=== PATIENT | female | born 1945 | race Caucasian/White ===

== ENCOUNTER 2017-11-07 13:43 | Emergency (ER) | payer MEDICARE, OTHER, SELFPAY ==
[2017-11-07 13:44] VITALS: BP 115/71; PULSE 60; RESP 18; TEMP 36.2; O2SAT 92; BMI 32.3
[2017-11-07 14:02] VITALS: O2SAT 98
--- NOTE | 2017-11-07 14:04 | ED.VISSUMM ---
- ER Visit Summary Date of Service: 11/07/17 Chief Complaint: Fever to 100.2, myalgias, headache, nasal congestion, sore throat and nonproductive cough initially History of Present Illness: The patient is a 72 F aunts with flulike symptoms that started last , November 04. She complains of documented fever to 102.2?. She states her cough initially was nonproductive now productive of colored sputum. She is a non-smoker. She does complain of headache without photophobia or neck stiffness. She does complain of nasal congestion, postnasal drainage and earache. She does complain of myalgias and arthralgias. She denies vomiting or diarrhea. She denies dysuria, frequency, urgency hematuria. She did not receive influenza vaccine this year. Physical Examination: Vital signs are normal. She is afebrile. HEENT exam is marked for boggy nasal mucosa and mild postnasal drainage. There is slight erythema at best. Trach is midline. There is no stridor. Lungs are without wheezes rales rhonchi with good mirror bilateral. Heart is regular without murmur, gallop or rub. Abdomen soft nontender. There is no asymmetry, swelling, discoloration, leg vein distention, palpable cords or tenderness along the distribution of the deep venous system. Neuro exam is nonfocal. Test Results: None were obtained Emergency Department Course and Treatment: Patient was informed she has influenza. She was told since this started there is no treatment other symptomatic. Since her vital signs are normal diagnostic testing is not indicated. Treatment Plan: Appropriate home-going instructions Disposition: Discharge to home Impression: Influenza This note was generated with [employer] dictation software. It may contain incorrect words, spelling, and punctuation that were not noted in review of the chart prior to signing ED Disposition - Plan for ED Patient: Disposition: Home or Assisted Living Chief Complaint: Cold Sx Instructions: ED Flu Referrals: Herminio Garcia [Primary Care Provider] - 1 Week if not improving
--- NOTE | 2017-11-07 14:08 | ED.DCSUM_ITS ---
- ER Visit Summary Date of Service: 11/07/17 Chief Complaint: Fever to 100.2, myalgias, headache, nasal congestion, sore throat and nonproductive cough initially History of Present Illness: The patient is a 72 F aunts with flulike symptoms that started last , November 04. She complains of documented fever to 102.2?. She states her cough initially was nonproductive now productive of colored sputum. She is a non-smoker. She does complain of headache without photophobia or neck stiffness. She does complain of nasal congestion, postnasal drainage and earache. She does complain of myalgias and arthralgias. She denies vomiting or diarrhea. She denies dysuria, frequency, urgency hematuria. She did not receive influenza vaccine this year. Physical Examination: Vital signs are normal. She is afebrile. HEENT exam is marked for boggy nasal mucosa and mild postnasal drainage. There is slight erythema at best. Trach is midline. There is no stridor. Lungs are without wheezes rales rhonchi with good mirror bilateral. Heart is regular without murmur, gallop or rub. Abdomen soft nontender. There is no asymmetry, swelling , discoloration, leg vein distention, palpable cords or tenderness along the distribution of the deep venous system. Neuro exam is nonfocal. Test Results: None were obtained Emergency Department Course and Treatment: Patient was informed she has influenza. She was told since this started there is no treatment other symptomatic. Since her vital signs are normal diagnostic testing is not indicated. Treatment Plan: Appropriate home-going instructions Disposition: Discharge to home Impression: Influenza This note was generated with [employer] dictation software. It may contain incorrect words, spelling, and punctuation that were not noted in review of the chart prior to signing ED Disposition - Plan for ED Patient: Disposition: Home or Assisted Living Chief Complaint: Cold Sx Instructions: ED Flu Referrals: Herminio Garcia [Primary Care Provider] - 1 Week if not improving
--- NOTE | 2017-11-07 14:40 | ED.RN ---
Verbal and written d/c instructions given to patient. All questions answered. Skin w/d. ABCs intact. Gait steady out of department.
== END 2017-11-07 14:40 | disposition home or self-care (01) ==
LOC: ED 14:16
PROVIDERS: Emergency Provider Emergency Medicine; Family Provider Physician Assistant; PCP Physician Assistant
DX: J11.1 Influenza due to unidentified influenza virus with other respiratory manifestations (principal); E66.9 Obesity, unspecified; Z79.899 Other long term (current) drug therapy
CPT/HCPCS: 99282

== ENCOUNTER 2017-12-12 18:37 | Emergency (ER) | payer MEDICARE, OTHER, SELFPAY ==
[2017-12-12 18:37] VITALS: BP 133/56; PULSE 60; RESP 16; TEMP 36.1; O2SAT 92; BMI 33.9
--- NOTE | 2017-12-12 18:41 | EKG12_ITS ---
Test Reason : Blood Pressure : / mmHG Vent. Rate : 062 BPM Atrial Rate : 062 BPM P-R Int : 148 ms QRS Dur : 092 ms QT Int : 448 ms P-R-T Axes : 070 006 114 degrees QTc Int : 454 ms Normal sinus rhythm ST & T wave abnormality, consider lateral ischemia Abnormal ECG Confirmed by MECHELLE FINCH, SOCORRO ([id number]), graphics editor ROBERT GIL ([id number] on 12/13/2017 2:26:37 PM Referred By: Confirmed By:SOCORRO MIN MD
--- NOTE | 2017-12-12 18:41 | RAD_ITS ---
STUDY: X-RAY CHEST REASON FOR EXAM: Female, 72 years old. Chest pain TECHNIQUE: AP COMPARISON: December 02, 2016 FINDINGS: Tiny calcified granulomata are noted in the right lung. There is bilateral perihilar interstitial thickening with groundglass opacity in the right lung. There is no demonstrated pleural abnormality. Normal size heart. Normal mediastinum and rach. Normal visualized pulmonary arteries. Mildly calcified aortic arch and descending thoracic aorta. Normal visualized thoracic spine. Normal visualized ribs, clavicles, and shoulders. There is no demonstrated abnormality of the visualized soft tissue structures of the upper abdomen. The interstitial thickening has increased and the groundglass opacity in the right lung is new possibly representing development of unilateral pulmonary interstitial edema or inflammatory change however this also could conceivably be artifactual. Clinical correlation recommended RAD/Chest 1 View (Portable) IMPRESSION: Increasing interstitial thickening and groundglass opacity in the right lung Electronically Signed: Dae Coleman MD at 20:05 EST , Service support ,
[2017-12-12 19:21] LABS: Absolute Neutrophil Count 4.3 X10^3/uL (2.0-7.7); Basophil# 0.04 X10^3/uL; Basophil% 0.5 % (0-1); Eosinophil# 0.28 X10^3/uL; Eosinophils% 3.6 % (0-5); Hematocrit 41.8 % (37-47); Hemoglobin 13.5 g/dl (12.0-15.0); Lymphocyte % 30.8 % (19-41); Mean Corp Hgb Conc 32.3 g/gl (32-36); Mean Corpuscular Hgb 29.3 pg (27.0-32.0); Mean Corpuscular Volume 90.7 fL (81-99); Mean Platelet Vol. 10.4 fl (6.2-12.0); Monocyte# 0.76 X10^3/uL; Monocyte% 9.8 % (0-10); Neutrophil # 4.29 X10^3/uL (2.7-7.7); POSITIVE COUNT NO; POSITIVE DIFFERENTIAL NO; POSITIVE MORPHOLOGY NO; Platelet Count 210 K/mm3 (150-450); RBC Distribution Width CV 14.7 % (11.6-14.6); RBC Distribution Width SD 48.4 fl (35.1-43.9); Red Blood Count 4.61 M/mm3 (4.2-5.4); White Blood Count 7.8 K/mm3 (4.4-11.0)
[2017-12-12 19:34] LABS: Anion Gap 5 (5-15); BUN 29 mg/dL (7-18); BUN/Creat Ratio 28.7 RATIO (10-20); Calcium,Total 9.1 mg/dL (8.5-10.1); Chloride 104 mmol/L (98-107); Creatinine, Serum 1.01 mg/dL (0.55-1.02); EST Glomerular Filtration Rate 57 mL/min (>60); Est Glom Filt Rate - Afr Amer 70 mL/min (>60); Estimated Creatinine Clearance 46.64 ml/min; Glucose 130 mg/dL (74-106); Potassium 3.9 mmol/L (3.5-5.1); Sodium Level 139 mmol/L (136-145)
[2017-12-12 19:46] VITALS: BP 131/68; PULSE 56; RESP 18; O2SAT 93
--- NOTE | 2017-12-12 20:23 | ED.DCSUM_ITS ---
- ER Visit Summary Date of Service: 12/12/17 Chief Complaint: Chest pain History of Present Illness: The patient is a [address] west and had seen Dr. Malik in the past. She reports that today while she was walking through the grocery store she had the onset of a substernal crushing pain that lasted 15-20 minutes. It resolved with rest. It was 10 out of 10 in severity. It made her nauseated and short of breath. She reports she has never had anything like this before. Physical Examination: Vitals: Stable. Afebrile. General: Well-nourished and well-developed. Head: Normocephalic atraumatic. Neck: Supple, no lymphadenopathy. No JVD. Nontender. Cardiovascular: Regular rate and rhythm. No murmurs. Respiratory: No respiratory distress. Clear to auscultation bilaterally. Abdominal: Soft, nontender, nondistended, normal bowel sounds. No guarding, rebound, or peritoneal signs. Back: Nontender. Extremities: Nontender, no edema. Skin: Normal color, no rash. Neurologic: Alert and oriented ?3. Cranial nerves II through XII are intact. Normal strength and sensation. Psych: Normal affect. Test Results: EKG is sinus at [address] changes and a T-wave inversions in leads I and aVL. This is a change from September 2012. Initial troponin is negative. Chem-7 is more for BUN of 29 and glucose 130. CBC is normal. Chest x-ray shows chronic changes. Emergency Department Course and Treatment: Patient was treated with aspirin and is resting comfortably. She has refused admission. She also refused a repeat troponin. Treatment Plan: I had a prolonged discussion with the patient that in no way, shape, or form can I rule out that this chest pain was cardiac in etiology. She understands this and still wants to leave AGAINST MEDICAL ADVICE. She is instructed to follow-up with her primary care physician as soon as possible. Return to the emergency department for chest pain, shortness of breath, or even if she just changes her mind about further evaluation. Disposition: Left AGAINST MEDICAL ADVICE Impression: 1. Chest pain. 2. Left AMA. This note was generated with [employer] software. It may contain incorrect words, spelling, and punctuation that were not noted in review of the chart prior to signing ED Disposition - Plan for ED Patient: Disposition: Home or Assisted Living Chief Complaint: Chest Pain Instructions: ED Chest Pain Atypical Unkn Cause Referrals: Herminio Garcia [Primary Care Provider] - As soon as possible
[2017-12-12 20:38] VITALS: BP 127/62; PULSE 58; RESP 12; O2SAT 93
== END 2017-12-12 20:39 | disposition home or self-care (01) ==
PROVIDERS: Emergency Provider Emergency Medicine; Family Provider Physician Assistant; PCP Physician Assistant
DX: R07.9 Chest pain, unspecified (principal); E03.9 Hypothyroidism, unspecified; G47.33 Obstructive sleep apnea (adult) (pediatric); F41.9 Anxiety disorder, unspecified; F32.9 Major depressive disorder, single episode, unspecified; Z79.899 Other long term (current) drug therapy
CPT/HCPCS: 71045; 80048; 84484; 85025; 93005; 99284; A4216

== ENCOUNTER → 2018-01-10 10:36 | Outpatient (CLI) | payer MEDICARE, OTHER, SELFPAY ==
[2018-01-10 11:58] LABS: Thyroid Stim Hormone (TSH) 9.93 uIU/mL (0.358-3.74)
[2018-01-10 12:00] LABS: Hemoglobin A1c 6.2 % (4.2-6.3)
== END ==
PROVIDERS: Visit Provider Specialist
DX: E11.9 Type 2 diabetes mellitus without complications (principal); E03.9 Hypothyroidism, unspecified
CPT/HCPCS: 36415; 83036; 84443

== ENCOUNTER → 2018-01-27 13:19 | Outpatient (CLI) | payer MEDICARE, OTHER, SELFPAY ==
--- NOTE | 2018-01-27 13:23 | STE_ITS ---
Reason For Study: Chest Pain Stress Results Protocol: Stress Echocardiogram Maximum Predicted HR: 149 bpm Target HR: 127 bpm% Maximum Pr edicted HR: 76 % DurationHeart Rate Stage (mm:ss) (bpm) BPCom ment BASELINE 51 132/70 NEVILLE PROTOCOL- STAGE 1 3:00 80 134/78 NEVILLE PROTOCOL- STAGE 2 2:20 11 3 140/80DYSPNEA RECOVERY 64 136/70 Stress Duration: 5:20 mm:ss Maximum Stress HR: 113 bpmM ETS: 7 Baseline Echocardiogram Findings Stress Echo Wall motion Data Resting WMIntermediate WMStress WM Resting Wall Motion Wall Motion Stress All segments Normal. All segments Hyperkinetic. Ejection Fraction 55 %. Ejection Fraction 65 %. Stress Results Heart rate response: sub-optimal Blood pressure response: normal resting BP - appropriate response Arrhythmias: none Functional capacity: average Stopped secondary to: dyspnea. EKG Data Baseline ECG: sinus bradycardia. Peak exercise ECG: somatic / motion artifact with no obvious ECG changes at the heart rate achieved. Symptoms with Stress No c/o chest discomfort during exercise / recovery. Interpretation Summary Negative (inadequate: %PMHR < 85%) Stress Echocardiogram Ordering Physician: Maria G Greenfield NP Referring Physician: DOCTOR, OUT OF TOWN Performed By: Nicole Galvan RDCS
== END ==
DX: R07.9 Chest pain, unspecified (principal)
CPT/HCPCS: 93017; 93350

== ENCOUNTER → 2018-05-23 09:50 | Outpatient (CLI) | payer MEDICARE, OTHER, SELFPAY ==
[2018-05-23 12:02] LABS: Erythrocyte Sedimentation Rate 10 mm/hr (0-30)
[2018-05-24 09:16] LABS: HIV - WCH Non-Reactive (Nonreactive); Vitamin B12 1012 pg/mL (211-911)
[2018-05-24 12:08] LABS: RNP Ab 1.1 AI (0.0-0.9); Smith Ab <0.2 AI (0.0-0.9)
[2018-05-24 14:08] LABS: ANTINUCLEAR ANTIBODIES DIRECT Positive (Negative)
[2018-05-25 20:08] LABS: Albumin 3.6 g/dL (2.9-4.4); Alpha-1-Globulins 0.2 g/dL (0.0-0.4); Alpha-2-Globulins 0.7 g/dL (0.4-1.0); Gamma Globulin 1.2 g/dL (0.4-1.8); Immunoglobulin A 188 mg/dL (64-422); Immunoglobulin G 1246 mg/dL (700-1600); Immunoglobulin M 69 mg/dL (26-217); PROEL- TOTAL PROTEIN 6.8 g/dL (6.0-8.5)
[2018-05-26 11:24] LABS: Creatinine, Urine 1.56 g/L (0.30-3.00); Hep C Antibodies <0.1 s/co ratio (0.0-0.9)
== END ==
PROVIDERS: Visit Provider Psychiatry & Neurology Neurology
DX: R53.83 Other fatigue (principal); G62.9 Polyneuropathy, unspecified
CPT/HCPCS: 36415; 82175; 82570; 82607; 82746; 82784; 83655; 83825; 84165; 84443; 85652; 86038; 86235; 86334; 86431; 86703; 86803

== ENCOUNTER → 2018-07-14 13:18 | Outpatient (CLI) | payer MEDICARE, OTHER, SELFPAY ==
[2018-07-14 15:09] LABS: Thyroid Stim Hormone (TSH) 4.02 uIU/mL (0.358-3.74)
== END ==
PROVIDERS: Referring Provider Specialist; Visit Provider Specialist
DX: E03.9 Hypothyroidism, unspecified (principal)
CPT/HCPCS: 36415; 84443

== ENCOUNTER → 2019-02-03 | Outpatient (CLI) | payer MEDICARE, OTHER, SELFPAY ==
[2018-07-27 11:54] VITALS: BMI 32.8
[2019-02-03 12:20] LABS: Hemoglobin A1c 6.4 % (4.2-6.3)
[2019-02-03 12:35] LABS: Albumin, Serum 3.3 g/dL (3.2-5.0); BUN 33 mg/dL (7-18); BUN/Creat Ratio 31.4 RATIO (10-20); Chloride 108 mmol/L (98-107); Creatinine, Serum 1.05 mg/dL (0.55-1.02); EST Glomerular Filtration Rate 55 mL/min (>60); Est Glom Filt Rate - Afr Amer 66 mL/min (>60); Glucose 87 mg/dL (74-106); Iron 84 ug/dL (50-170); Iron Binding Capacity,Total 342 ug/dL (250-450); Phosphorus 3.5 mg/dL (2.5-4.9); Potassium 4.4 mmol/L (3.5-5.1); Sodium Level 140 mmol/L (136-145)
[2019-02-03 12:36] LABS: Absolute Lymphocyte Count 2.08 X10^3/ul (0.83-4.51); Absolute Neutrophil Count 4.4 X10^3/uL (2.0-7.7); Basophil# 0.04 X10^3/uL; Basophil% 0.6 % (0-1); Eosinophil# 0.15 X10^3/uL; Eosinophils% 2.1 % (0-5); Hematocrit 42.9 % (37-47); Hemoglobin 14.1 g/dl (12.0-15.0); Lymphocyte # 2.08 X10^3/ul (4.0); Lymphocyte % 29.1 % (19-41); Mean Corp Hgb Conc 32.9 g/gl (32-36); Mean Corpuscular Hgb 29.3 pg (27.0-32.0); Mean Corpuscular Volume 89.2 fL (81-99); Mean Platelet Vol. 11.1 fl (6.2-12.0); Monocyte# 0.47 X10^3/uL; Monocyte% 6.6 % (0-10); Neutrophil # 4.39 X10^3/uL (2.7-7.7); Neutrophil % 61.5 % (47-70); Platelet Count 164 K/mm3 (150-450); RBC Distribution Width CV 14.3 % (11.6-14.6); RBC Distribution Width SD 46.7 fl (35.1-43.9); Red Blood Count 4.81 M/mm3 (4.2-5.4); White Blood Count 7.1 K/mm3 (4.4-11.0)
[2019-02-03 12:37] LABS: POSITIVE COUNT NO; POSITIVE DIFFERENTIAL NO; POSITIVE MORPHOLOGY NO
== END | disposition home or self-care (01) ==
PROVIDERS: Referring Provider Specialist; Visit Provider Specialist
DX: E61.1 Iron deficiency (principal); E11.9 Type 2 diabetes mellitus without complications
CPT/HCPCS: 36415; 80069; 83036; 83540; 83550; 85025

== ENCOUNTER → 2019-06-26 | Outpatient (CLI) | payer MEDICARE, OTHER, SELFPAY ==
[2019-06-26 14:26] LABS: Hemoglobin A1c 6.5 % (4.2-6.3)
[2019-06-26 14:28] LABS: Albumin, Serum 3.2 g/dL (3.2-5.0); BUN 32 mg/dL (7-18); BUN/Creat Ratio 28.8 RATIO (10-20); Calcium,Total 8.9 mg/dL (8.5-10.1); Chloride 107 mmol/L (98-107); Creatinine, Serum 1.11 mg/dL (0.55-1.02); EST Glomerular Filtration Rate 51 mL/min (>60); Est Glom Filt Rate - Afr Amer 62 mL/min (>60); Glucose 112 mg/dL (74-106); Phosphorus 3.8 mg/dL (2.5-4.9); Potassium 4.2 mmol/L (3.5-5.1); Sodium Level 140 mmol/L (136-145)
== END | disposition home or self-care (01) ==
LOC: MTLAB 13:01
PROVIDERS: Referring Provider Specialist; Visit Provider Specialist
DX: E11.9 Type 2 diabetes mellitus without complications (principal); E03.9 Hypothyroidism, unspecified
CPT/HCPCS: 36415; 80069; 83036; 84443

== ENCOUNTER 2019-10-14 12:05 | Emergency (ER) | payer MEDICARE, OTHER, SELFPAY ==
[2019-10-14 12:06] VITALS: BP 133/61; PULSE 71; RESP 18; TEMP 36.1; O2SAT 94; BMI 32.9
--- NOTE | 2019-10-14 12:42 | RAD_ITS ---
STUDY: X-RAY - ACUTE ABDOMINAL SERIES REASON FOR EXAM: Female, 74 years old. N/V, ABD PAIN, SINUS CONGESTION TECHNIQUE: Single view of the chest. Supine, and erect view(s) of the abdomen were obtained. COMPARISON: None. FINDINGS: The lungs are clear and expanded. Normal size heart. Normal mediastinum and rach. Normal visualized pulmonary arteries. Normal visualized aortic arch and descending thoracic aorta. There is a nondilated, non-specific bowel gas pattern. The soft tissue structures of the abdomen and pelvis are unremarkable. There are degenerative changes of the thoracolumbar spine with mild degree of scoliosis. There are old posterior left rib fractures, stable. RAD/Acute Abdomen Inc Chest IMPRESSION: Nonobstructive bowel gas pattern. Nonacute Chest xray. Electronically Signed: Brayan Condon MD (Bro[place]) at 14:09 EST , Service support ,
--- NOTE | 2019-10-14 12:43 | ED.VIS.GI ---
History of Present Illness Chief Complaint: Nausea/Vomiting Informant: Patient - Abdominal Pain/Flank Pain Onset: Today - early this AM Context: Sudden Onset Timing: Continuous Quality: Aching Location: Epigastric Current Severity: Moderate Maximum Severity: Moderate Worsened by: Food - or trying to drink water Relieved by: Nothing - Nausea/Vomiting/Emesis GI Symptom: Nausea, Vomiting Onset: Today Quality: Nonbilious. Negative for: Blood streaks, Coffee ground, Hematemesis Severity: Moderate - Diarrhea/Melena/Hematochezia GI Symptom: Negative for: Diarrhea, Melena, Hematochezia Associated Symptoms: Negative for: Dysuria, Frequency, Hematuria, Urgency Narrative: Upper mid abdominal discomfort does not radiate. No lower abdominal pain. Has had multiple abdominal surgeries, all remote, which include a cholecystectomy and a hysterectomy and takedown of adhesions related to her hysterectomy. States she has had nasal/facial congestion for the past 4 days that have been giving her a bifrontal headache, postnasal drip, mild runny nose. She has been using hypertonic saline nasal spray which has been improving this some, she has less congestion today and that has improved the headache some as well. States her mouth feels dry and she feels dehydrated because she cannot keep anything down from vomiting for the last 4-6 hours. The vomiting started first, then the upper abdominal pain. No diarrhea or fevers this morning although she did feel a subjective fever a couple days ago with regards to her nasal congestion. States she felt a little dyspneic with exertion yesterday but this was only one time and has not had any of that since. Not really coughing. She states she came really because she felt like she needed some fluids. She also states she is very concerned because she has many medication allergies and is afraid she can take nothing for any of this. - Past Medical History (1) Nonrheumatic mitral (valve) prolapse Status: Chronic (2) Generalized anxiety disorder Status: Chronic (3) Hypothyroidism Status: Chronic (4) Obesity Status: Chronic (5) Obstructive sleep apnea syndrome Status: Chronic Past Medical History - Allergies and Home Meds Allergies/Adverse Reactions: Allergies prochlorperazine [From Compazine] Allergy (Severe, Verified 10/14/19 12:08) Anaphylaxis acetaminophen [From Tylenol] Allergy (Verified 10/14/19 12:08) Rash aspirin Allergy (Verified 10/14/19 12:08) Shortness of breath diphenhydramine [From Benadryl] Allergy (Verified 10/14/19 12:08) Hives NSAIDS (Non-Steroidal Anti-Inflamma Allergy (Verified 10/14/19 12:08) Rash cephalexin [From Keflex] Adverse Reaction (Unknown, Verified 10/14/19 12:08) Unknown Cephalosporins Adverse Reaction (Unknown, Verified 10/14/19 12:08) Unknown codeine Adverse Reaction (Unknown, Verified 10/14/19 12:08) Unknown doxycycline Adverse Reaction (Unknown, Verified 10/14/19 12:08) Unknown erythromycin base Adverse Reaction (Unknown, Verified 10/14/19 12:08) Unknown ibuprofen [From Motrin] Adverse Reaction (Unknown, Verified 10/14/19 12:08) Unknown lidocaine Adverse Reaction (Unknown, Verified 10/14/19 12:08) Unknown meperidine Adverse Reaction (Unknown, Verified 10/14/19 12:08) Unknown Penicillins Adverse Reaction (Unknown, Verified 10/14/19 12:08) Unknown ANTIBIOTICS Allergy (Severe, Uncoded 10/14/19 12:08) Anaphylaxis; SOB PAIN MEDICATIONS Allergy (Uncoded 10/14/19 12:08) Rash Primary Care Physician: Corinne Panda DO [Primary Care Provider] - Surgical History: cholecystectomy, hysterectomy Lives: Spouse/ Significant Other Smoking Status: Never smoker Alcohol: None Review of Systems General: Reports: Malaise. Denies: Chills, Fever, Sweats Eyes: Denies: Visual changes - bilaterally, Diplopia ENT: Reports: Left ear pain - better today, Rhinorrhea, - - congested, - - dry mouth Cardiovascular: Denies: Chest pain, Palpitations Respiratory: Reports: Dyspnea on exertion - yest once, briefly. Denies: Dyspnea, Cough, Orthopnea Gastrointestinal: Reports: Abdominal pain, Nausea, Vomiting. Denies: Diarrhea, Melena, Hematochezia Genitourinary: Denies: Dysuria, Hematuria, Frequency Musculoskeletal: Reports: Myalgias. Denies: Arthralgias, Neck pain, Back pain, Extremity Pain Skin: Denies: Rash, Wounds Neurological: Reports: Headache. Denies: Weakness, Numbness Psych: Reports: Anxiety. Denies: Depression Allergy: Denies: Uticaria, Swelling of the mouth, Swelling of the tongue Physical Exam Vital Signs/Narrative: Vital Signs Temp Pulse Resp BP Pulse Ox 10/14/19 12:06 97 F L 71 18 133/61 H 94 Inital Vital Signs reviewed: Yes General: Well nourished, Well developed, Obese, No Acute Distress Head: Normocephalic, Atraumatic Eyes: Perrl, EOMI, - - nml conj bilat. Negative for: Scleral icterus ENT: Moist mucous membranes, TM's clear - and nml EACs, Nasal congestion - without purulent discharge or significant nasal turbinate edema. Negative for: No rhinorrhea - mild clear rhinorrhea, Sinus tenderness Neck: Supple, Nontender Cardiovascular: Regular rate, Regular rhythm, No murmurs Respiratory: No distress, CTA bilaterally, Chest nontender Abdomen: Soft, Nondistended, Normal bowel sounds, Tender - epigastr and RUQ; otherwise, benign/NT. Negative for: Guarding, Rebound tenderness Back: Nontender, Normal Inspection. Negative for: CVA tenderness Extremities: Nontender, No edema Skin: Normal color, No rash Neurological: Alert, Oriented x3, Cranial nerves II-XII grossly intact, Normal Strength, Normal Sensation Psychological: Normal affect, Normal Mood Diagnostic/Tx/Re-eval Chest X-Ray - ED: Read by ED Physician - 4-view acute abdominal series, Normal, Heart, Lungs, Mediastinum, No Acute Disease, - - nonspecific bowel gas pattern. no free air. Laboratory Tests 10/14/19 10/14/19 Range/Units 13:00 13:00 WBC 7.7 (4.4-11.0) K/mm3 RBC 5.01 (4.2-5.4) M/mm3 Hgb 14.4 (12.0-15.0) g/dL Hct 45.1 (37-47) % MCV 90.0 (81-99) fL MCH 28.7 (27.0-32.0) pg MCHC 31.9 L (32-36) g/dL RDW Std Deviation 46.5 H (35.1-43.9) fl RDW Coeff of Jonn 14.1 (11.6-14.6) % Plt Count 117 L (150-450) K/mm3 MPV 12.1 H (6.2-12.0) fl Immature Gran % (Auto) 0.300 (0.0-0.9) % Neut % (Auto) 87.8 H (47-70) % Lymph % (Auto) 3.9 L (19-41) % [place] % (Auto) 5.3 (0-10) % Eos % (Auto) 2.3 (0-5) % Baso % (Auto) 0.4 (0-1) % Absolute Neuts (auto) 6.7 (2.0-7.7) X10^3/uL Absolute Lymphs (auto) 0.30 L (0.83-4.51) X10^3/uL Nucleated RBC % 0 (0-5) % Sodium 137 (136-145) mmol/L Potassium 4.6 (3.5-5.1) mmol/L Chloride 108 H (98-107) mmol/L Carbon Dioxide 25.0 (21.0-32.0) mmol/L Anion Gap 4 L (5-15) BUN 30 H (7-18) mg/dL Creatinine 0.92 (0.55-1.02) mg/dL Estim Creat Clear Calc 49.74 ml/min Est GFR (MDRD) Af Amer 77 (>60) mL/min Est GFR (MDRD) Non-Af 64 (>60) mL/min BUN/Creatinine Ratio 32.6 H (10-20) RATIO Glucose 151 H (74-106) mg/dL Calcium 8.2 L (8.5-10.1) mg/dL Total Bilirubin 0.50 (0.20-1.00) mg/dL AST 26 (15-37) U/L ALT 40 (13-56) U/L Alkaline Phosphatase 83 (45-117) U/L Total Protein 7.4 (6.4-8.2) g/dL Albumin 3.2 (3.2-5.0) g/dL Globulin 4.2 (2.2-4.2) g/dL Albumin/Globulin Ratio 0.8 L (0.9-2.4) RATIO Lipase 81 (73-393) U/L - Medical Decision Making Nausea is improved, patient still feeling lightheaded after three quarters of a liter of IV fluid, especially when she stands up. When she lies down she is feeling better. She feels malaise. She does not want to stay in the hospital and does not want to go home, she was offered Mylanta/Maalox but she states she is so sensitive to medication she cannot take that, she has a special compounded antacid at home that she will wait to take when she gets there because she is very sensitive to dyes, fillers, other ingredients, etc. She states she cannot drink tap water. Must be bottled. Her acute abdominal series looks benign to me, her symptoms are very consistent with gastritis. For example, she states that soon as the sip of water touches her stomach, it makes her vomit and have increased epigastric pain. I do not think she has a bowel obstruction. She is having myalgias and other symptoms that are consistent with a viral syndrome. I advise close outpatient follow-up. She is given another liter of fluid after the initial, at her request, and given some alcohol pads to SNF for nausea as she states she breaks out in hives with Zofran and she is anaphylactic to Compazine. She agrees with all of this and is comfortable with the overall plan of following up closely as an outpatient or returning if worse. ED Disposition - Plan for ED Patient: Disposition: Home or Assisted Living Diagnosis: Acute gastritis without bleeding, Viral URI Instructions: VOMITING (8y-Adult), GASTRITIS vs. ULCER Referrals: Corinne Panda, DO [Primary Care Provider] - 1-2 Days if not improving
[2019-10-14] MEDS: 0.9% Normal Saline 1,000 ML 999 ML IV ×2 (13:05→14:15)
[2019-10-14 13:17] LABS: Absolute Neutrophil Count 6.7 X10^3/uL (2.0-7.7); Basophil# 0.03 X10^3/uL; Basophil% 0.4 % (0-1); Eosinophil# 0.18 X10^3/uL; Eosinophils% 2.3 % (0-5); Hematocrit 45.1 % (37-47); Hemoglobin 14.4 g/dL (12.0-15.0); Lymphocyte % 3.9 % (19-41); Mean Corp Hgb Conc 31.9 g/dL (32-36); Mean Corpuscular Hgb 28.7 pg (27.0-32.0); Mean Platelet Vol. 12.1 fl (6.2-12.0); Monocyte# 0.41 X10^3/uL; Monocyte% 5.3 % (0-10); NRBC Flagged by Analyzer 0 % (0-5); Neutrophil # 6.74 X10^3/uL (2.7-7.7); Neutrophil % 87.8 % (47-70); POSITIVE COUNT YES; POSITIVE DIFFERENTIAL YES; RBC Distribution Width CV 14.1 % (11.6-14.6); RBC Distribution Width SD 46.5 fl (35.1-43.9); Red Blood Count 5.01 M/mm3 (4.2-5.4); White Blood Count 7.7 K/mm3 (4.4-11.0)
[2019-10-14 13:19] LABS: Differential Indicated SCAN CRITERIA MET
[2019-10-14 13:36] LABS: ALB/GLOB Ratio 0.8 RATIO (0.9-2.4); AST(SGOT) 26 U/L (15-37); Alanine Aminotransfer ALT/SGPT 40 U/L (13-56); Albumin, Serum 3.2 g/dL (3.2-5.0); Alkaline Phosphatase 83 U/L (45-117); Anion Gap 4 (5-15); BUN 30 mg/dL (7-18); BUN/Creat Ratio 32.6 RATIO (10-20); Calcium,Total 8.2 mg/dL (8.5-10.1); Chloride 108 mmol/L (98-107); Creatinine, Serum 0.92 mg/dL (0.55-1.02); EST Glomerular Filtration Rate 64 mL/min (>60); Est Glom Filt Rate - Afr Amer 77 mL/min (>60); Estimated Creatinine Clearance 49.74 ml/min; Globulin 4.2 g/dL (2.2-4.2); Glucose 151 mg/dL (74-106); Lipase 81 U/L (73-393); Potassium 4.6 mmol/L (3.5-5.1); Protein, Total 7.4 g/dL (6.4-8.2); Sodium Level 137 mmol/L (136-145)
[2019-10-14 14:30] VITALS: BP 130/78; PULSE 90; RESP 14; O2SAT 98
[2019-10-14 15:41] VITALS: BP 141/59; PULSE 89; RESP 16; O2SAT 98
== END 2019-10-14 15:45 | disposition home or self-care (01) ==
PROVIDERS: Emergency Provider Emergency Medicine
DX: K29.00 Acute gastritis without bleeding (principal); J06.9 Acute upper respiratory infection, unspecified; F41.1 Generalized anxiety disorder; E03.9 Hypothyroidism, unspecified; E66.9 Obesity, unspecified; Z79.899 Other long term (current) drug therapy
CPT/HCPCS: 74022; 80053; 83690; 85025; 96360; 96361; 99282; J7030

== ENCOUNTER → 2019-11-20 | Outpatient (CLI) | payer MEDICARE, OTHER, SELFPAY ==
[2019-11-20 15:33] LABS: Hematocrit 42.7 % (37-47); Hemoglobin 13.5 g/dL (12.0-15.0); Mean Corp Hgb Conc 31.6 g/dL (32-36); Mean Corpuscular Hgb 29.1 pg (27.0-32.0); Mean Platelet Vol. 11.6 fl (6.2-12.0); POSITIVE COUNT YES; Platelet Count 150 K/mm3 (150-450); RBC Distribution Width CV 13.9 % (11.6-14.6); Red Blood Count 4.64 M/mm3 (4.2-5.4); White Blood Count 6.6 K/mm3 (4.4-11.0)
[2019-11-20 15:36] LABS: Scan Indicated on CBC? Y/N YES- FLAGS NOTED
[2019-11-20 15:59] LABS: Differential Comment SCANNED
[2019-11-20 16:32] LABS: Albumin, Serum 3.3 g/dL (3.2-5.0); BUN 25 mg/dL (7-18); BUN/Creat Ratio 21.7 RATIO (10-20); Creatinine, Serum 1.15 mg/dL (0.55-1.02); EST Glomerular Filtration Rate 49 mL/min (>60); Est Glom Filt Rate - Afr Amer 60 mL/min (>60); Globulin 3.8 g/dL (2.2-4.2); Glucose 103 mg/dL (74-106); Protein, Total 7.1 g/dL (6.4-8.2)
[2019-11-20 16:33] LABS: ALB/GLOB Ratio 0.9 RATIO (0.9-2.4); AST(SGOT) 17 U/L (15-37); Alanine Aminotransfer ALT/SGPT 32 U/L (13-56); Alkaline Phosphatase 81 U/L (45-117); Anion Gap 3 (5-15); Calcium,Total 8.9 mg/dL (8.5-10.1); Chloride 106 mmol/L (98-107); Magnesium 2.3 mg/dL (1.6-2.6); Potassium 3.9 mmol/L (3.5-5.1); Sodium Level 139 mmol/L (136-145)
== END | disposition home or self-care (01) ==
LOC: MTLAB 13:37
PROVIDERS: Referring Provider Nurse Practitioner Family; Visit Provider Nurse Practitioner Family
DX: I34.1 Nonrheumatic mitral (valve) prolapse (principal); R00.1 Bradycardia, unspecified; R00.2 Palpitations; G47.33 Obstructive sleep apnea (adult) (pediatric)
CPT/HCPCS: 36415; 80053; 83735; 85027

== ENCOUNTER → 2020-06-26 | Outpatient (CLI) | payer MEDICARE, OTHER, SELFPAY ==
[2020-06-26 13:53] LABS: Hemoglobin A1c 6.1 % (3.8-5.6)
[2020-06-26 13:54] LABS: ALB/GLOB Ratio 0.9 RATIO (0.9-2.4); AST(SGOT) 14 U/L (15-37); Alanine Aminotransfer ALT/SGPT 31 U/L (13-56); Albumin, Serum 3.4 g/dL (3.2-5.0); Alkaline Phosphatase 87 U/L (45-117); Anion Gap 4 (5-15); BUN 24 mg/dL (7-18); BUN/Creat Ratio 25.8 RATIO (10-20); Calcium,Total 9.6 mg/dL (8.5-10.1); Chloride 107 mmol/L (98-107); Creatinine, Serum 0.93 mg/dL (0.55-1.02); EST Glomerular Filtration Rate 63 mL/min (>60); Est Glom Filt Rate - Afr Amer 76 mL/min (>60); Globulin 3.8 g/dL (2.2-4.2); Glucose 97 mg/dL (74-106); Potassium 4.3 mmol/L (3.5-5.1); Protein, Total 7.2 g/dL (6.4-8.2); Sodium Level 142 mmol/L (136-145)
== END | disposition home or self-care (01) ==
LOC: MTLAB 12:57
PROVIDERS: Referring Provider Specialist; Visit Provider Specialist
DX: E11.9 Type 2 diabetes mellitus without complications (principal); E03.9 Hypothyroidism, unspecified
CPT/HCPCS: 36415; 80053; 83036; 84443

== ENCOUNTER 2020-07-31 16:23 | Emergency (ER) | payer MEDICARE, OTHER, SELFPAY ==
[2020-07-31 16:24] VITALS: BP 128/67; PULSE 50; RESP 14; TEMP 36.4; O2SAT 95; BMI 33.3
--- NOTE | 2020-07-31 16:43 | EKG12_ITS ---
Test Reason : NEAR SYNCOPE Blood Pressure : / mmHG Vent. Rate : 050 BPM Atrial Rate : 050 BPM P-R Int : 152 ms QRS Dur : 096 ms QT Int : 476 ms P-R-T Axes : 057 004 046 degrees QTc Int : 433 ms Sinus bradycardia Otherwise normal ECG Confirmed by EMAUNEL FINCH, KYREE ([id number]), material expeditor JEAN CLAUDE CANALES ([id number]) on 08/04/2020 12:40:10 PM Referred By: ELAN/MARGI Confirmed By:KYREE CASTELLANOS MD
--- NOTE | 2020-07-31 16:43 | ED.VIS.GEN ---
History of Present Illness Chief Complaint: Dizziness Informant: Patient Narrative: 75-year-old female presenting with dizziness. She states she has had intermittent vertiginous type dizziness for the last 3 days. She states this comes and goes. She has associated nausea. She states it is worse with head turning. She notes when it began she woke from sleep in the morning and turned her head and started to feel dizzy and nauseous. Today she was at the grocery store trying to check out when she turned her head and became very dizzy. She said she got sweaty and nauseous. She thought she was going to fall down but did not. She does not have a headache. She denies chest pain. She does relate a history of palpitations but is followed by her slicing machine feeder who initially wanted to put the patient on a pacemaker but they discovered that it was due to thyroid abnormality and since the patient has been on Synthroid her symptoms have gotten much better. They do not have any current plans for a pacemaker. - Past Medical History (1) Palpitations Status: Chronic (2) Hypothyroidism Status: Chronic (3) Obstructive sleep apnea syndrome Status: Chronic Past Medical History - Allergies and Home Meds Allergies/Adverse Reactions: Allergies prochlorperazine [From Compazine] Allergy (Severe, Verified 07/31/20 16:32) Anaphylaxis acetaminophen [From Tylenol] Allergy (Verified 07/31/20 16:32) Rash aspirin Allergy (Verified 07/31/20 16:32) Shortness of breath diphenhydramine [From Benadryl] Allergy (Verified 07/31/20 16:32) Hives NSAIDS (Non-Steroidal Anti-Inflamma Allergy (Verified 07/31/20 16:32) Rash cephalexin [From Keflex] Adverse Reaction (Unknown, Verified 07/31/20 16:32) Unknown Cephalosporins Adverse Reaction (Unknown, Verified 07/31/20 16:32) Unknown codeine Adverse Reaction (Unknown, Verified 07/31/20 16:32) Unknown doxycycline Adverse Reaction (Unknown, Verified 07/31/20 16:32) Unknown erythromycin base Adverse Reaction (Unknown, Verified 07/31/20 16:32) Unknown ibuprofen [From Motrin] Adverse Reaction (Unknown, Verified 07/31/20 16:32) Unknown lidocaine Adverse Reaction (Unknown, Verified 07/31/20 16:32) Unknown meperidine Adverse Reaction (Unknown, Verified 07/31/20 16:32) Unknown Penicillins Adverse Reaction (Unknown, Verified 07/31/20 16:32) Unknown ANTIBIOTICS Allergy (Severe, Uncoded 07/31/20 16:32) Anaphylaxis; SOB PAIN MEDICATIONS Allergy (Uncoded 07/31/20 16:32) Rash Primary Care Physician: Corinne Panda DO [Primary Care Provider] - Prior records reviewed: Yes Past Medical History: - - Reviewed in problem list Surgical History: cholecystectomy, hysterectomy Lives: Spouse/ Significant Other Smoking Status: Never smoker Alcohol: None Drugs: None Review of Systems General: Denies: Chills, Fever, Sweats Eyes: Reports: Blurred Vision - bilaterally - Blurry vision occurs with head turning and dizziness described as vertiginous in nature. ENT: Denies: Rhinorrhea, Sore throat Cardiovascular: Reports: Palpitations. Denies: Chest pain Respiratory: Denies: Dyspnea, Cough Gastrointestinal: Reports: Nausea. Denies: Abdominal pain Genitourinary: Denies: Dysuria, Hematuria Musculoskeletal: Denies: Myalgias, Arthralgias Skin: Denies: Rash, Abscess Neurological: Denies: Headache, Weakness, Parasthesia, Numbness Physical Exam Vital Signs/Narrative: Vital Signs Temp Pulse Resp BP Pulse Ox 07/31/20 16:24 97.6 F L 50 L 14 128/67 H 95 Inital Vital Signs reviewed: Yes General: Well nourished, No Acute Distress Head: Normocephalic, Atraumatic Eyes: Perrl, EOMI, - - Nystagmus with modified [place]-Hallpike and dizziness is elicited. ENT: TM's clear Cardiovascular: Regular rate, Bradycardia Respiratory: No distress, CTA bilaterally Abdomen: Soft, Nontender, Nondistended Extremities: Nontender, No edema Skin: Normal color, No rash Neurological: Alert, Oriented x3 Psychological: Normal affect, Normal Mood Diagnostic/Tx/Re-eval - Rhythm Strip Rhythm Strip: Sinus Rhythm Rate: 50 - EKG Initial EKG Interpretation: No Acute Injury Pattern, Sinus Bradycardia Prior: Unchanged - Medical Decision Making Patient was seen and evaluated on arrival for dizziness. She states this has been ongoing for the last couple of days but today was the worst episode she has had. She denies any chest pain or shortness of breath. She states she was sweaty and nauseous for short time but now feels improved. Her physical exam is consistent with a positional vertigo however patient refuses any medication because she is currently not symptomatic. She did have a squad EKG performed prior to arrival which had a lot of artifact on it and stated that she had a sinus arrhythmia however I did repeat a EKG in the ED and this is normal sinus rhythm at 50 bpm. She states that she is normally around 50 to 55 bpm. There is no ischemic changes. I do not believe the patient needs blood work or imaging at this time. Is allergic to meclizine, but was amenable to some Phenergan for home. Patient was given return precautions. Impression: 1. Benign positional vertigo ED Disposition - Plan for ED Patient: Disposition: Home or Assisted Living Instructions: ED BPV Vertigo Prescriptions: proMETHazine tablet [Phenergan] 25 mg PO Q6H PRN PRN #14 tab PRN Reason: Nausea Transmission Status: Pending to [id number] Referrals: Corinne Panda DO [Primary Care Provider] -
[2020-07-31 17:39] VITALS: BP 129/74; PULSE 50; RESP 14; O2SAT 96
== END 2020-07-31 17:40 | disposition home or self-care (01) ==
LOC: ED 17:17
PROVIDERS: Emergency Provider Student in an Organized Health Care Education/Training Program
DX: H81.10 Benign paroxysmal vertigo, unspecified ear (principal)
CPT/HCPCS: 93005; 99283

== ENCOUNTER → 2020-09-08 13:35 | Outpatient (CLI) | payer MEDICARE, OTHER, SELFPAY ==
[2020-09-08 15:29] LABS: Thyroid Stim Hormone (TSH) 8.21 uIU/mL (0.358-3.74)
== END ==
PROVIDERS: Referring Provider Specialist; Visit Provider Specialist
DX: E03.9 Hypothyroidism, unspecified (principal)
CPT/HCPCS: 36415; 84443

== ENCOUNTER 2020-09-12 15:09 | Emergency (ER) | payer MEDICARE, OTHER, SELFPAY ==
--- NOTE | 2020-09-12 15:10 | NURSING ---
pt yelling at staff to stop his from leaving, pt refuses to be seen if is not aloud back. pt's has cancer.
[2020-09-12 15:12] VITALS: BP 153/95; PULSE 85; RESP 16; TEMP 35.8; O2SAT 99; BMI 32.5
--- NOTE | 2020-09-12 15:43 | CT_ITS ---
STUDY: CT CERVICAL SPINE WITHOUT CONTRAST REASON FOR EXAM: Female, 75 years old. Head injury, fell, laceration to right temporal area, neck pain. RADIATION DOSAGE (If Supplied By Facility): CTDIvol = ( 25.28 ) mGy, DLP = ( 468.78 ) mGycm TECHNIQUE: High resolution transaxial imaging was performed without contrast material. Sagittal and coronal images were reconstructed. Individualized dose optimization techniques were used for this CT. COMPARISON: None FINDINGS: Normal craniovertebral junction. Normal anterior atlantoaxial articulation. Normal odontoid process. Normal cervical lordosis. Normal vertebral bodies and posterior osseous elements. C2-3: Normal endplates. Normal disc height and morphology. Normal central canal and intervertebral neuroforamina. C3-4: Normal endplates. Normal disc height and morphology. Normal central canal and intervertebral neuroforamina. C4-5: Normal endplates. Normal disc height and morphology. Normal central canal and intervertebral neuroforamina. C5-6: Normal endplates. Normal disc height and morphology. Normal central canal and intervertebral neuroforamina. C6-7: Normal endplates. Normal disc height and morphology. Normal central canal and intervertebral neuroforamina. C7-T1: Normal endplates. Normal disc height and morphology. Normal central canal and intervertebral neuroforamina. Normal visualized soft tissue structures. CT/Spine Cervical without Contras IMPRESSION: Normal unenhanced CT examination of the cervical spine. Electronically Signed: Nacho Ruvalcaba MD at 16:45 EST Tel , Service support ,
--- NOTE | 2020-09-12 15:43 | CT_ITS ---
STUDY: CT BRAIN WITHOUT CONTRAST REASON FOR EXAM: Female, 75 years old. Head injury, fell, laceration to right temporal area, neck pain. RADIATION DOSAGE (If Supplied By Facility): CTDIvol = ( 44.99 ) mGy, DLP = ( 779.24 ) mGycm TECHNIQUE: Transaxial CT imaging of the brain was performed without administration of intravenous contrast material. Individualized dose optimization techniques were used for this CT. COMPARISON: No relevant priors. FINDINGS: Small right temporal hematoma. There is hyperostosis frontalis internus. Normal size ventricles and extra-axial spaces for the patient''s age. Normal white matter tracts of the cerebral hemispheres. Normal basal ganglia and thalami. Normal brainstem. Normal cerebellum. There is no intracranial hemorrhage. There are no findings of an acute ischemic infarction. Normal visualized paranasal sinuses. CT/Brain/Head without Contrast IMPRESSION: Small right temporal scalp hematoma but no intracranial hemorrhage. Electronically Signed: Nacho Ruvalcaba MD at 16:42 EST Tel , Service support ,
--- NOTE | 2020-09-12 15:46 | ED.DCSUM_ITS ---
- ER Visit Summary Date of Service: 09/12/20 Chief Complaint: Tripped and fell with right-sided head injury History of Present Illness: The patient is a 75 F history of mitral valve prolapse, hypothyroidism and sleep apnea. Patient is not on blood thinners. She was walking outside her home she tripped on the sidewalk fell hit the right side of her head complaining of head pain, neck pain and right shoulder pain. She denies any numbness. No LOC. She denies other injuries. Physical Examination: Older female accompanied by her vital signs stable afebrile. HEENT exam pupils round reactive laser motions are intact. She has dried blood in the left mandaeism area with hematoma. Currently there is no obvious laceration that needs 7 but I have the nurses clean off the wound to evaluate more thoroughly. No other facial trauma. No other scalp trauma. C- spine not specifically tender more in the right lateral base of her neck. Trachea midline. She is in a C-collar. Lungs clear to auscultation bilaterally. Heart regular rhythm no murmur. Rate about 85. Chest wall nontender. Ribs nontender. Abdomen soft nontender. Pelvic girdle intact. Patient is moving all 4 extremities. Normal formulation chemist strength. Normal dorsi plantarflexion. Normal range of motion of preston ulders, elbows and wrist. Normal range of motion hips knees and ankles. Back right upper posterior shoulder has mild tenderness. There is no ecchymosis or bruising. Thoracic and lumbar spine are nontender. Neurologically she is awake and alert with no focal motor or sensory deficits. GCS of 15. Test Results: Right shoulder x-ray AP and lateral 2 views read by myself shows no acute abnormality. Chronic changes to the AC joint. Also read by the radiologist agrees. CAT scan of the brain interpreted by radiologist and reviewed by me shows scalp hematoma but no intracranial bleed or skull fracture. CT C-spine shows no acute abnormality read by the radiologist and reviewed by me. Chest x-ray AP and lateral view read by myself showed no acute abnormality. No obvious rib fractures. No pneumothorax. Normal cardiac silhouette. Normal lung donaldson. Emergency Department Course and Treatment: Older female fall with head neck and right shoulder injury. CAT scan of the head neck and x-ray of the right shoulder being obtained. She did not anything right now for pain. Of the nurses cleaned off the wound reevaluated. Repeat exam patient is doing well at 6:15 PM will be discharged home. I went over all test results with patient and her . She will be walked by nursing prior to discharge. When the nurses were discharging the patient and she stood up she had some pain across the right side of her chest wall and rib cage. We obtained a AP and lateral 2 view chest x-ray which I read which shows no acute abnormality. There are no obvious broken ribs nor pneumothorax and there is a normal cardiac silhouette mediastinum. I went over that with the patient. I reexamined her at 1940 p.m. She is comfortable be discharged to home. Her chest wall on the right side tender but there is no crepitance, bruising or subcu air. Treatment Plan: Head injury instructions. Ice to scalp. Tylenol for pain. Return if vomiting, severe headache or acting abnormally. Disposition: Discharge Impression: Acute fall Acute closed head injury Cervical strain Right shoulder contusion Right chest wall contusion This note was generated with [employer] dictation software. It may contain incorrect words, spelling, and punctuation that were not noted in review of the chart prior to signing ED Disposition - Plan for ED Patient: Disposition: Home or Assisted Living Instructions: ED Head Injury (Adult) Referrals: Corinne Panda, [Primary Care Provider] - 1 Week if not improving Additional Instructions: Ice to your forehead to decrease swelling. Tylenol for pain. Return if intractable vomiting, severe headache or not acting herself. Follow-up with your doctor if not improving.
--- NOTE | 2020-09-12 15:50 | RAD_ITS ---
STUDY: X-RAY - RIGHT SHOULDER REASON FOR EXAM: Female, 75 years old. Fall today. Rt shoulder pain. TECHNIQUE: 2 view(s) of the shoulder. COMPARISON: None. FINDINGS: Normal glenohumeral articulation. There is degenerative arthrosis of the acromioclavicular joint without inferior osseous spur formation. Normal acromion. Normal humeral head and visualized proximal humerus. The soft tissue structures are unremarkable. Normal visualized pulmonary apex. RAD/Shoulder min 2 Views IMPRESSION: 1. No acute fracture or dislocation. 2. Moderate acromioclavicular joint arthrosis. Electronically Signed: Nacho Ruvalcaba MD at 16:13 EST Tel , Service support ,
--- NOTE | 2020-09-12 18:19 | ED.DEP ---
ED Disposition - Plan for ED Patient: Disposition: Home or Assisted Living Instructions: ED Head Injury (Adult) Referrals: Corinne Panda DO [Primary Care Provider] - 1 Week if not improving Additional Instructions: Ice to your forehead to decrease swelling. Tylenol for pain. Return if intractable vomiting, severe headache or not acting herself. Follow-up with your doctor if not improving.
[2020-09-12 19:07] VITALS: BP 148/74; PULSE 51; RESP 16; O2SAT 97
--- NOTE | 2020-09-12 19:10 | RAD_ITS ---
STUDY: X-RAY CHEST REASON FOR EXAM: Female, 75 years old. Fall today. Hx of COPD. TECHNIQUE: Frontal and lateral views of the chest. COMPARISON: 10/14/2019. FINDINGS: The lungs are clear and expanded. There is no demonstrated pleural abnormality. Normal size heart. Normal mediastinum and rach. Normal visualized pulmonary arteries. Normal visualized aortic arch and descending thoracic aorta. There are diffuse degenerative changes of the visualized thoracic spine. Normal visualized ribs, clavicles, and shoulders. There is no demonstrated abnormality of the visualized soft tissue structures of the upper abdomen. RAD/Chest PA and Lateral IMPRESSION: No definite acute or significant abnormality seen. Electronically Signed: Cameron Dutton MD at 19:51 EST , Service support ,
[2020-09-12 19:46] VITALS: BP 153/95; PULSE 885; RESP 16; O2SAT 99
== END 2020-09-12 19:47 | disposition home or self-care (01) ==
PROVIDERS: Emergency Provider Emergency Medicine
DX: S16.1XXA Strain of muscle, fascia and tendon at neck level, initial encounter (principal); S40.011A Contusion of right shoulder, initial encounter; S20.211A Contusion of right front wall of thorax, initial encounter; S00.03XA Contusion of scalp, initial encounter; W01.0XXA Fall on same level from slipping, tripping and stumbling without subsequent striking against object, initial encounter; Y93.01 Activity, walking, marching and hiking; Y92.007 Garden or yard of unspecified non-institutional (private) residence as the place of occurrence of the external cause; Y99.8 Other external cause status
CPT/HCPCS: 70450; 71046; 72125; 73030; 99282

== ENCOUNTER 2021-02-15 09:40 | Emergency (ER) | payer MEDICARE, OTHER, SELFPAY ==
[2021-02-15] VITALS (7 sets, daily range): BP systolic 99–125; BP diastolic 53–74; PULSE 57–88; RESP 14–20; TEMP 36.1–36.7; O2SAT 90–96; BMI 32.3
--- NOTE | 2021-02-15 10:05 | RAD_ITS ---
STUDY: X-RAY CHEST REASON FOR EXAM: Female, 76 years old. cough TECHNIQUE: Single AP portable view of the chest. COMPARISON: 09/12/2020 FINDINGS: The lungs are clear and expanded. There is no demonstrated pleural abnormality. Normal size heart. Normal mediastinum and rach. Normal visualized pulmonary arteries. Normal visualized aortic arch and descending thoracic aorta. Normal visualized thoracic spine. Normal visualized ribs, clavicles, and shoulders. There is no demonstrated abnormality of the visualized soft tissue structures of the upper abdomen. RAD/Chest 1 View (Portable) IMPRESSION: Normal x-ray examination of the chest. Electronically Signed: Nacho Ruvalcaba MD at 10:59 EDT Tel , Service support ,
--- NOTE | 2021-02-15 10:05 | EKG12_ITS ---
Test Reason : Blood Pressure : / mmHG Vent. Rate : 055 BPM Atrial Rate : 055 BPM P-R Int : 150 ms QRS Dur : 092 ms QT Int : 436 ms P-R-T Axes : 055 004 036 degrees QTc Int : 417 ms Sinus bradycardia with sinus arrhythmia Otherwise normal ECG Confirmed by MECHELLE FINCH, SOCORRO ([id number]), managing editor JEAN CLAUDE CANALES ([id number]) on 02/16/2021 1:11:26 PM Referred By: JOVANNA Confirmed By:SOCORRO MIN MD
--- NOTE | 2021-02-15 10:15 | ED.VIS.DYS ---
HPI History of Present Illness Chief Complaint: Shortness of Breath Informant: patient Onset/Context/Timing Onset: Days (4) Context: gradual Timing: Continuous Current Severity: Mild Maximum Severity: Moderate Worsened by: Exertion Relieved by: Rest Associated Symptoms cough, rhinorrhea, fever, sore throat, chills and clear sputum Chest Pain: Positive for None (Only mild soreness with coughs) Narrative Narrative: Patient started having cough and shortness of breath 4 or 5 days ago the same day she was diagnosed with Covid here in the emergency department. States that her cough and shortness of breath have gotten a little worse, headaches have improved, fevers and chills have improved, she has been watching her pulse oximetry at home and this morning it stayed at 88% so she decided to come to the hospital, checking it 1 last time prior to coming and it was 91%. Here she is 94%. She is on no oxygen supplemental at home. She has no history of lung disease. [facility] Medical History (Updated 02/15/21 @ 13:[address] Azael Choudhury MD) Diet-controlled diabetes mellitus Generalized anxiety disorder Hypothyroidism Nonrheumatic mitral (valve) prolapse Obesity Obstructive sleep apnea syndrome Palpitations Home Medications escitalopram oxalate 10 mg PO DAILY 12/02/16 [History Last Taken 12/11/17] levothyroxine 150 mcg tablet 150 mcg PO DAILY 07/27/18 [History Last Taken Unknown] lorazepam 1 mg tablet 0.5 mg PO TID PRN tab 07/27/18 [History Last Taken Unknown] promethazine 25 mg PO Q6H PRN PRN #14 tab 07/31/20 [Rx Last Taken Unknown] Allergy/AdvReac Type Severity Reaction Status Date / Time prochlorperazine Allergy Severe Anaphylaxis Verified 02/15/21 09:41 [From Compazine] acetaminophen [From Tylenol] Allergy Rash Verified 02/15/21 09:41 aspirin Allergy Shortness Verified 02/15/21 09:41 of breath diphenhydramine Allergy Hives Verified 02/15/21 09:41 [From Benadryl] NSAIDS (Non-Steroidal Allergy Rash Verified 02/15/21 09:41 Anti-Inflamma cephalexin [From Keflex] AdvReac Unknown Unknown Verified 02/15/21 09:41 Cephalosporins AdvReac Unknown Unknown Verified 02/15/21 09:41 codeine AdvReac Unknown Unknown Verified 02/15/21 09:41 doxycycline AdvReac Unknown Unknown Verified 02/15/21 09:41 erythromycin base AdvReac Unknown Unknown Verified 02/15/21 09:41 ibuprofen [From Motrin] AdvReac Unknown Unknown Verified 02/15/21 09:41 lidocaine AdvReac Unknown Unknown Verified 02/15/21 09:41 meperidine AdvReac Unknown Unknown Verified 02/15/21 09:41 Penicillins AdvReac Unknown Unknown Verified 02/15/21 09:41 ANTIBIOTICS Allergy Severe Anaphylaxis; Uncoded 02/15/21 09:41 SOB PAIN MEDICATIONS Allergy Rash Uncoded 02/15/21 09:41 Family History Father Cancer Heart disease Mother Congestive heart failure Diabetes Surgical History History of cholecystectomy History of hysterectomy Social History Smoking Status: Never smoker alcohol intake: never ROS ROS ED Constitutional Constitutional ED: Reports chills, fever(s) and malaise Eyes Eyes: Denies change in vision or diplopia ENT ENT ED: Reports rhinorrhea and sore throat; Denies ear pain Cardiovascular Cardiovascular: Denies chest pain or palpitations Respiratory/Chest Respiratory/Chest: Reports cough, dyspnea, dyspnea on exertion and sputum Gastrointestinal Gastrointestinal: Denies abdominal pain, diarrhea, nausea or vomiting Genitourinary Genitourinary ED: Denies dysuria or hematuria Musculoskeletal Musculoskeletal: Reports myalgias; Denies back pain or neck pain Integumentary Denies abscess or rash Neurologic Neurologic: Reports headache(s); Denies paresthesias or weakness Psychiatric Psychiatric: Denies anxiety or suicidal thoughts EXAM Physical Exam Const Vital Signs: 02/15/21 09:41 02/15/21 10:50 02/15/21 11:04 Temperature 98.1 F 97.9 F 97 F L Temperature Source Oral Temporal Temporal Pulse Rate 59 L 88 76 Respiratory Rate 18 14 14 Respiratory Effort Short of Breath Respiratory Depth Normal Respiratory Pattern Normal Blood Pressure 99/63 112/53 L 117/66 Blood Pressure Mean 75 72 83 Pulse Ox 94 95 94 Oxygen Delivery Method Room Air Room Air Room Air 02/15/21 11:27 02/15/21 11:34 02/15/21 12:16 Temperature 98.1 F Temperature Source Temporal Pulse Rate 57 L Respiratory Rate 16 Respiratory Effort Respiratory Depth Respiratory Pattern Blood Pressure 125/54 H Blood Pressure Mean 77 Pulse Ox 90 95 92 Oxygen Delivery Method Room Air Room Air Room Air Positive well nourished and well developed General Appearance ED: well developed and NAD HEENT Reports moist mucous membranes normocephalic and atraumatic Eyes PERRL and EOMs intact bilaterally Neck full ROM and supple Resp normal respiratory effort and clear to auscultation bilaterally Cardio regular rate, regular rhythm and no murmurs GI non-tender and non-distended Auscultation: normoactive bowel sounds Palpation: soft Back/Spine no CVA tenderness General Back: other FROM Extremity normal to inspection General Extremety ED: Negative for edema, pulses abnormal or tenderness General Extremity: Negative for edema or pulses abnormal Neuro oriented x3, CN's II-XII intact bilaterally and no sensory deficits noted Sensorium / Orientation: awake and alert Motor Exam: strength 5/5 throughout Skin no rashes or lesions noted and no wounds MDM MDM MDM Narrative Medical decision making narrative: Patient states she had a positive Covid swab at [facility] as we do not have it on record here. Patient states she wants to go home. She states repeatedly she was hypoxic at 88% at home. Here she went down to 90% at rest, however with ambulation her pulse oximetry went up to 94-95%. She did feel dyspneic but recovered with resting for a short period of time. Her labs and chest x-ray are as noted below, basically unremarkable. If she is hypoxic, I recommend she be admitted since given all of this I am not able to get her onto home oxygen from the emergency department. However she refuses. She has remained 90% or above throughout her stay in the emergency department for the most part has been around 94-95%. She states her has oxygen at home for her to use if she needs to. He does not use it all the time, just as needed. She states she is only mildly dyspneic if she exerts herself and she recovers quickly when she rests. She wants to go home and I think this is reasonable. She has a capacity to make this decision and does not appear altered. There are no other confounding factors. As I discussed with her, since she occasionally needs oxygen, she is a candidate for steroids and she refuses saying that she cannot tolerate cortisone and has sensitivities to lots of medications. She was also advised that she is a candidate for monoclonal antibody infusion. She was referred to the outpatient referral line, they will call her during the week. We discussed reasons to return. Lab Data Attestation: I reviewed the patient's lab results. Labs: Laboratory Results - last 24 hr 02/15/21 02/15/21 02/15/21 10:20 10:20 10:20 WBC 5.6 RBC 4.81 Hgb 13.9 Hct 43.2 MCV 89.8 MCH 28.9 MCHC 32.2 RDW Std Deviation 45.9 H RDW Coeff of Jonn 13.8 Plt Count 152 MPV 10.9 Immature Gran % (Auto) 0.400 Neut % (Auto) 67.7 Lymph % (Auto) 18.4 L [place] % (Auto) 12.3 H Eos % (Auto) 0.7 Baso % (Auto) 0.5 Absolute Neuts (auto) 3.8 Absolute Lymphs (auto) 1.03 Nucleated RBC % 0 Sodium 136 Potassium 3.7 Chloride 102 Carbon Dioxide 29.0 Anion Gap 5 BUN 25 H Creatinine 0.96 Estim Creat Clear Calc 46.26 Est GFR (MDRD) Af Amer 73 Est GFR (MDRD) Non-Af 60 BUN/Creatinine Ratio 26.0 H Glucose 156 H Lactic Acid 1.3 Calcium 8.8 Total Bilirubin 0.40 AST 19 ALT 31 Alkaline Phosphatase 74 Troponin I < 0.015 Total Protein 7.1 Albumin 3.0 L Globulin 4.1 Albumin/Globulin Ratio 0.7 L Radiography Chest X-Ray - ED: 1 View, Read by ED Physician, No Acute Disease and No Infiltrates Diagnostic Testing: Radiology Impression Chest X-Ray 02/15/21 10:05 IMPRESSION: Normal x-ray examination of the chest. Electronically Signed: Nacho Ruvalcaba MD at 10:59 EDT Tel , Service support , EKG Initial EKG: Attestation: I personally reviewed and interpreted this EKG as follows: Interpretation: No Acute Injury Pattern and Sinus Arrythmia (Otherwise normal EKG) Discharge Plan Triage Chief Complaint: Shortness of Breath ED Provider: Azael Choudhury Dx/Rx/DC Orders Clinical Impression: COVID-19 Instructions: Coronavirus Disease 2019 (COVID-19): Overview Prescriptions: No Action levothyroxine [Synthroid] 150 mcg tablet 150 mcg PO DAILY RF: 0 escitalopram oxalate 10 MG tablet 10 mg PO DAILY RF: 0 lorazepam 1 mg tablet 0.5 mg PO TID PRN (Reason: Anxiety) RF: 0 promethazine 25 MG tablet 25 mg PO Q6H PRN PRN (Reason: Nausea) Qty: 14 RF: 0 Primary Care Provider: Corinne Panda Referrals: Corinne Panda, [Primary Care Provider] - Activity Restrictions/Additional Instructions: You may be a candidate for monoclonal antibody infusion which is a one-time dose performed as an outpatient for COVID-19. You will get a phone call if you are indeed still a candidate. Oxygen up to 2 or 3 L nasal cannula as needed if your oxygen falls below 90% and stays there. Disposition Disposition: Home, self care
[2021-02-15 10:36] LABS: Absolute Lymphocyte Count 1.03 X10^3/uL (0.83-4.51); Absolute Neutrophil Count 3.8 X10^3/uL (2.0-7.7); Basophil# 0.03 X10^3/uL; Basophil% 0.5 % (0-1); Eosinophil# 0.04 X10^3/uL; Eosinophils% 0.7 % (0-5); Hematocrit 43.2 % (37-47); Hemoglobin 13.9 g/dL (12.0-15.0); Lymphocyte # 1.03 X10^3/ul (0.83-4.51); Lymphocyte % 18.4 % (19-41); Mean Corp Hgb Conc 32.2 g/dL (32-36); Mean Corpuscular Hgb 28.9 pg (27.0-32.0); Mean Corpuscular Volume 89.8 fL (81-99); Mean Platelet Vol. 10.9 fl (6.2-12.0); Monocyte# 0.69 X10^3/uL; Monocyte% 12.3 % (0-10); NRBC Flagged by Analyzer 0 % (0-5); Neutrophil # 3.78 X10^3/uL (2.7-7.7); Neutrophil % 67.7 % (47-70); Platelet Count 152 K/mm3 (150-450); RBC Distribution Width CV 13.8 % (11.6-14.6); RBC Distribution Width SD 45.9 fl (35.1-43.9); Red Blood Count 4.81 M/mm3 (4.2-5.4); White Blood Count 5.6 K/mm3 (4.4-11.0)
[2021-02-15 10:49] LABS: ALB/GLOB Ratio 0.7 RATIO (0.9-2.4); AST(SGOT) 19 U/L (15-37); Alanine Aminotransfer ALT/SGPT 31 U/L (13-56); Alkaline Phosphatase 74 U/L (45-117); Anion Gap 5 (5-15); BUN 25 mg/dL (7-18); Calcium,Total 8.8 mg/dL (8.5-10.1); Chloride 102 mmol/L (98-107); Creatinine, Serum 0.96 mg/dL (0.55-1.02); EST Glomerular Filtration Rate 60 mL/min (>60); Est Glom Filt Rate - Afr Amer 73 mL/min (>60); Estimated Creatinine Clearance 46.26 ml/min; Globulin 4.1 g/dL (2.2-4.2); Glucose 156 mg/dL (74-106); Potassium 3.7 mmol/L (3.5-5.1); Protein, Total 7.1 g/dL (6.4-8.2); Sodium Level 136 mmol/L (136-145)
[2021-02-15 10:54] LABS: Lactic Acid 1.3 mmol/L (0.4-1.9)
== END 2021-02-15 14:25 | disposition home or self-care (01) ==
PROVIDERS: Emergency Provider Emergency Medicine
DX: U07.1 COVID-19 (principal); E11.9 Type 2 diabetes mellitus without complications; E66.9 Obesity, unspecified; E03.9 Hypothyroidism, unspecified; Z79.899 Other long term (current) drug therapy
CPT/HCPCS: 71045; 80053; 83605; 84484; 85025; 87040; 93005; 99285; A4216

== ENCOUNTER 2021-02-22 08:41 | Inpatient (IN) | payer MEDICARE, OTHER, SELFPAY ==
[2021-02-15 09:41] VITALS: BMI 32.3
[2021-02-22] VITALS (11 sets, daily range): BP systolic 81–155; BP diastolic 48–75; PULSE 48–64; RESP 13–27; TEMP 36.1–37.3; O2SAT 92–100; BMI 33.3; BMI 32.1
--- NOTE | 2021-02-22 08:56 | EKG12_ITS ---
Test Reason : SOB Blood Pressure : / mmHG Vent. Rate : 055 BPM Atrial Rate : 055 BPM P-R Int : 146 ms QRS Dur : 092 ms QT Int : 450 ms P-R-T Axes : 059 007 045 degrees QTc Int : 430 ms Sinus bradycardia with Premature atrial complexes Otherwise normal ECG Confirmed by MECHELLE FINCH, SOCORRO ([id number]), commissioning editor JEAN CLAUDE CANALES ([id number]) on 02/24/2021 9:14:11 AM Referred By: DEBORA Confirmed By:SOCORRO MIN MD
--- NOTE | 2021-02-22 09:06 | EX.ED.DYSGE1 ---
HPI History of Present Illness Chief Complaint: Weakness Informant: patient Onset/Context/Timing Onset: Days Context: Gradual Onset Timing: Continuous Current Severity: Moderate Maximum Severity: Moderate Narrative Narrative: The patient is a 76-year-old female with medical history significant for sleep apnea, hypothyroidism, and anxiety presents to the emergency department with generalized weakness. Patient was diagnosed Covid positive about 10 days ago. She was actually seen here 5 days ago. At that time, her pulse ox was about 90%. She refused admission. She did qualify for Decadron, but states that she had reaction to multiple steroids before. She states that since then, she has had persistent diarrhea. She has been feeling lightheaded and dizzy. She states she has no energy and just feels weak. She has had a mild cough. She has not had any further fever. She denies any urinary symptoms. Prior similar symptoms: Yes Recent Illness/Hospitalization: Yes [facility] Medical History (Updated 02/22/21 @ 09:17 by Frandy Matthew) Diabetes Diet-controlled diabetes mellitus Generalized anxiety disorder Hyperthyroidism Hyperthyroidism Hypothyroidism Hypothyroidism Non-smoker Nonrheumatic mitral (valve) prolapse Obesity Obstructive sleep apnea syndrome Palpitations Home Medications escitalopram oxalate 10 mg PO DAILY 12/02/16 [History Last Taken 12/11/17] levothyroxine 150 mcg tablet 150 mcg PO DAILY 07/27/18 [History Last Taken Unknown] lorazepam 1 mg tablet 0.5 mg PO TID PRN tab 07/27/18 [History Last Taken Unknown] promethazine 25 mg PO Q6H PRN PRN #14 tab 07/31/20 [Rx Last Taken Unknown] Allergy/AdvReac Type Severity Reaction Status Date / Time prochlorperazine Allergy Severe Anaphylaxis Verified 02/22/21 08:44 [From Compazine] acetaminophen [From Tylenol] Allergy Rash Verified 02/22/21 08:44 aspirin Allergy Shortness Verified 02/22/21 08:44 of breath diphenhydramine Allergy Hives Verified 02/22/21 08:44 [From Benadryl] NSAIDS (Non-Steroidal Allergy Rash Verified 02/22/21 08:44 Anti-Inflamma cephalexin [From Keflex] AdvReac Unknown Unknown Verified 02/22/21 08:44 Cephalosporins AdvReac Unknown Unknown Verified 02/22/21 08:44 codeine AdvReac Unknown Unknown Verified 02/22/21 08:44 doxycycline AdvReac Unknown Unknown Verified 02/22/21 08:44 erythromycin base AdvReac Unknown Unknown Verified 02/22/21 08:44 ibuprofen [From Motrin] AdvReac Unknown Unknown Verified 02/22/21 08:44 lidocaine AdvReac Unknown Unknown Verified 02/22/21 08:44 meperidine AdvReac Unknown Unknown Verified 02/22/21 08:44 Penicillins AdvReac Unknown Unknown Verified 02/22/21 08:44 ANTIBIOTICS Allergy Severe Anaphylaxis; Uncoded 02/22/21 08:44 SOB PAIN MEDICATIONS Allergy Rash Uncoded 02/22/21 08:44 Family History Father Cancer Heart disease Mother Congestive heart failure Diabetes Surgical History (Updated 02/22/21 @ 09:16 by Frandy Matthew) History of cholecystectomy History of cholecystectomy History of hysterectomy Social History Smoking Status: Never smoker alcohol intake: never ROS ROS ED Constitutional Constitutional ED: Denies chills or fever(s) Eyes Eyes: Denies blurry vision or change in vision ENT ENT ED: Denies ear pain or sore throat Cardiovascular Cardiovascular: Denies chest pain or palpitations Respiratory/Chest Respiratory/Chest: Denies cough, dyspnea or dyspnea on exertion Gastrointestinal Gastrointestinal: Reports diarrhea and nausea; Denies abdominal pain or vomiting Genitourinary Genitourinary ED: Denies dysuria or urinary frequency Musculoskeletal Musculoskeletal: Reports arthralgias; Denies myalgias Integumentary Denies rash Neurologic Neurologic: Denies headache(s) or paresthesias Psychiatric Psychiatric: Denies anxiety or depression Endocrine Endocrinology: Denies polydipsia or polyuria Allergic/Immunologic Allergic/Immunologic ED: Denies urticaria EXAM Physical Exam Const Vital Signs: 02/22/21 08:41 02/22/21 09:14 02/22/21 09:26 Temperature 98.6 F 98.0 F Temperature Source Temporal Oral Pulse Rate 57 L 56 L Pulse Rate [Lying] Pulse Rate [Sitting] Respiratory Rate 18 27 H Respiratory Effort Normal Respiratory Pattern Normal Blood Pressure 81/48 L 106/57 L Blood Pressure [Lying] Blood Pressure [Sitting] Blood Pressure Mean 59 73 Blood Pressure Mean [Lying] Blood Pressure Mean [Sitting] Pulse Ox 94 96 Oxygen Delivery Method Room Air Room Air Oxygen Flow Rate (L/min) 02/22/21 11:13 02/22/21 11:19 Temperature 98.4 F Temperature Source Temporal Pulse Rate 54 L 55 L Pulse Rate [Lying] 53 L Pulse Rate [Sitting] 54 L Respiratory Rate 16 17 Respiratory Effort Respiratory Pattern Blood Pressure 115/67 111/75 Blood Pressure [Lying] 114/64 Blood Pressure [Sitting] 116/67 Blood Pressure Mean 83 87 Blood Pressure Mean [Lying] 80 Blood Pressure Mean [Sitting] 83 Pulse Ox 94 Oxygen Delivery Method Room Air Oxygen Flow Rate (L/min) 2 Positive well nourished and well developed General Appearance ED: well developed HEENT Reports normocephalic, head/scalp atraumatic and dry mucous membranes Mouth ED: Yes dry mucous membranes Mouth: dry mucous membranes Eyes PERRL and EOMs intact bilaterally Neck no lymphadenopathy and supple General: Negative for tenderness Chest Wall inspection of chest normal Resp normal respiratory effort and clear to auscultation bilaterally Cardio regular rate, regular rhythm and no murmurs GI normal to inspection, nondistended, normoactive bowel sounds Palpation: Negative for tender, guarding or rebound tenderness present Back/Spine no CVA tenderness Cervical Spine: Negative for cervical spine tenderness Thoracic Spine / Upper Back: Negative for thoracic spinal tenderness Extremity normal to inspection General Extremety ED: Negative for tenderness Neuro oriented x3 and CN's II-XII intact bilaterally Neuro Narrative: No focal deficits appreciated. Sensorium / Orientation: alert Psych mental status grossly normal Skin no rashes or lesions noted, no wounds and skin turgor normal MDM MDM MDM Narrative Medical decision making narrative: Patient presents known Covid positive with recurrent near syncope. She states over time she stands, she feels like she is going to pass out. She is mildly hypertensive on arrival. With gentle fluid bolus, her blood pressure has increased, but she is still hovering at about 100 systolic. When she does stand to ambulate, she gets rather symptomatic. Metabolic work-up was pursued. Labs are relatively unremarkable. Her EKG demonstrates a sinus bradycardia without acute ischemia. On reevaluation, the patient is more comfortable after Zofran, but still gets nauseated and lightheaded with ambulating. At this point, given her recurrent near syncope and relative hypotension, I do feel that she would benefit from observation. Impression 1. Covid 2. Near syncope 3. Dehydration Lab Data Labs: Laboratory Results - last 24 hr 02/22/21 02/22/21 02/22/21 09:20 09:20 09:20 WBC 4.4 RBC 4.62 Hgb 13.4 Hct 41.5 MCV 89.8 MCH 29.0 MCHC 32.3 RDW Std Deviation 45.3 H RDW Coeff of Jonn 13.7 Plt Count 166 MPV 10.8 Immature Gran % (Auto) 0.700 Neut % (Auto) 68.5 Lymph % (Auto) 21.7 [place] % (Auto) 8.4 Eos % (Auto) 0.2 Baso % (Auto) 0.5 Absolute Neuts (auto) 3.0 Absolute Lymphs (auto) 0.96 Nucleated RBC % 0 Sodium 136 Potassium 3.7 Chloride 102 Carbon Dioxide 27.0 Anion Gap 7 BUN 24 H Creatinine 1.01 Estim Creat Clear Calc 43.97 Est GFR (MDRD) Af Amer 69 Est GFR (MDRD) Non-Af 57 L BUN/Creatinine Ratio 23.8 H Glucose 220 H Lactic Acid 1.4 Calcium 8.4 L Total Bilirubin 0.30 AST 22 ALT 33 Alkaline Phosphatase 78 Total Protein 6.8 Albumin 2.8 L Globulin 4.0 Albumin/Globulin Ratio 0.7 L Urine Color Urine Clarity Urine pH Ur Specific [place] Urine Protein Urine Glucose (UA) Urine Ketones Urine Occult Blood Urine Nitrite Urine Bilirubin Urine Urobilinogen Ur Leukocyte Esterase Urine RBC Urine WBC Ur Squamous Epith Cells Urine Bacteria Urine Mucus 02/22/21 09:40 WBC RBC Hgb Hct MCV MCH MCHC RDW Std Deviation RDW Coeff of Jonn Plt Count MPV Immature Gran % (Auto) Neut % (Auto) Lymph % (Auto) [place] % (Auto) Eos % (Auto) Baso % (Auto) Absolute Neuts (auto) Absolute Lymphs (auto) Nucleated RBC % Sodium Potassium Chloride Carbon Dioxide Anion Gap BUN Creatinine Estim Creat Clear Calc Est GFR (MDRD) Af Amer Est GFR (MDRD) Non-Af BUN/Creatinine Ratio Glucose Lactic Acid Calcium Total Bilirubin AST ALT Alkaline Phosphatase Total Protein Albumin Globulin Albumin/Globulin Ratio Urine Color Yellow Urine Clarity Clear Urine pH 5.0 Ur Specific [place] 1.020 Urine Protein 15 H Urine Glucose (UA) 50 H Urine Ketones Negative Urine Occult Blood 10 H Urine Nitrite Negative Urine Bilirubin Negative Urine Urobilinogen Normal Ur Leukocyte Esterase Negative Urine RBC 0 SEEN Urine WBC 0 SEEN Ur Squamous Epith Cells 0 SEEN Urine Bacteria 0 SEEN Urine Mucus 1+ Radiography Chest X-Ray - ED: 1 View, Read by ED Physician, Normal, Mediastinum, Bony Structures and Right Infiltrate Diagnostic Testing: Radiology Impression Chest X-Ray 02/22/21 10:25 IMPRESSION: Minimal airspace disease in the right midlung which may represent developing right-sided pneumonia. at 1042 Reported and signed by: Ruel Shukla MD Electronically Signed: Ruel Shukla MD at 10:41 EDT Tel , Service support , Discharge Plan Triage Chief Complaint: Weakness ED Provider: River Neely Dx/Rx/DC Orders Prescriptions: No Action levothyroxine [Synthroid] 150 mcg tablet 150 mcg PO DAILY RF: 0 escitalopram oxalate 10 MG tablet 10 mg PO DAILY RF: 0 lorazepam 1 mg tablet 0.5 mg PO TID PRN (Reason: Anxiety) RF: 0 promethazine 25 MG tablet 25 mg PO Q6H PRN PRN (Reason: Nausea) Qty: 14 RF: 0 Primary Care Provider: Corinne Panda
[2021-02-22 09:42] LABS: Absolute Lymphocyte Count 0.96 X10^3/uL (0.83-4.51); Basophil# 0.02 X10^3/uL; Basophil% 0.5 % (0-1); Eosinophil# 0.01 X10^3/uL; Eosinophils% 0.2 % (0-5); Hematocrit 41.5 % (37-47); Hemoglobin 13.4 g/dL (12.0-15.0); Lymphocyte # 0.96 X10^3/ul (0.83-4.51); Lymphocyte % 21.7 % (19-41); Mean Corp Hgb Conc 32.3 g/dL (32-36); Mean Corpuscular Volume 89.8 fL (81-99); Mean Platelet Vol. 10.8 fl (6.2-12.0); Monocyte# 0.37 X10^3/uL; Monocyte% 8.4 % (0-10); NRBC Flagged by Analyzer 0 % (0-5); Neutrophil # 3.04 X10^3/uL (2.7-7.7); Neutrophil % 68.5 % (47-70); Platelet Count 166 K/mm3 (150-450); RBC Distribution Width CV 13.7 % (11.6-14.6); RBC Distribution Width SD 45.3 fl (35.1-43.9); Red Blood Count 4.62 M/mm3 (4.2-5.4); White Blood Count 4.4 K/mm3 (4.4-11.0)
[2021-02-22 09:48] LABS: Bacteria 0 SEEN /hpf (None Seen); Red Blood Cells-Urine 0 SEEN /hpf (0-5); Squamous Epithelial Cells - UA 0 SEEN /hpf (5-10); White Blood Cells 0 SEEN /hpf (0-5)
[2021-02-22 09:51] LABS: Color, Urine Yellow (Yellow); Glucose, Dipstick 50 mg/dl (Normal); Ketone-Dipstick Negative (Negative); Leukocyte Esterase-Dipstick Negative /ul (Negative); Nitrite-Dipstick Negative (Negative); Occult Blood-Urine 10 /ul (Negative); Protein-Dipstick 15 mg/dl (Negative); Urine Bilirubin Dipstick Negative (Negative); Urine Clarity Clear (Clear); Urine Urobilinogen Normal (Normal)
[2021-02-22 09:58] LABS: ALB/GLOB Ratio 0.7 RATIO (0.9-2.4); AST(SGOT) 22 U/L (15-37); Alanine Aminotransfer ALT/SGPT 33 U/L (13-56); Albumin, Serum 2.8 g/dL (3.2-5.0); Alkaline Phosphatase 78 U/L (45-117); Anion Gap 7 (5-15); BUN 24 mg/dL (7-18); BUN/Creat Ratio 23.8 RATIO (10-20); Calcium,Total 8.4 mg/dL (8.5-10.1); Chloride 102 mmol/L (98-107); Creatinine, Serum 1.01 mg/dL (0.55-1.02); EST Glomerular Filtration Rate 57 mL/min (>60); Est Glom Filt Rate - Afr Amer 69 mL/min (>60); Estimated Creatinine Clearance 43.97 ml/min; Glucose 220 mg/dL (74-106); Potassium 3.7 mmol/L (3.5-5.1); Protein, Total 6.8 g/dL (6.4-8.2); Sodium Level 136 mmol/L (136-145)
[2021-02-22 10:00] LABS: Mucous, Urine 1+ /hpf (<or=2+)
[2021-02-22 10:00] LABS: Lactic Acid 1.4 mmol/L (0.4-1.9)
--- NOTE | 2021-02-22 10:25 | RAD_ITS ---
EXAM: XR CHEST, 1 VIEW : 1945 CLINICAL INDICATION: sob, COVID POSITIVE TECHNIQUE: Frontal view of the chest. This report was created using [employer] report generation technology. COMPARISON: 02/15/2021 FINDINGS: LUNGS AND PLEURAL SPACES: There is minimal airspace disease in the right mid lung. No pneumothorax. No effusion. HEART: Unremarkable. Cardiac silhouette not enlarged. MEDIASTINUM: Central airways and mediastinal contour are unremarkable. BONES/JOINTS: Unremarkable. SOFT TISSUES: Unremarkable. RAD/Chest 1 View (Portable) IMPRESSION: Minimal airspace disease in the right midlung which may represent developing right-sided pneumonia. at 1042 Reported and signed by: Ruel Shukla MD Electronically Signed: Ruel Shukla MD at 10:41 EDT Tel , Service support ,
--- NOTE | 2021-02-22 11:15 | NURSING ---
PCU OBS [facility] NEAR [place], COVID
--- NOTE | 2021-02-22 11:19 | NURSING ---
CV ICU 202
--- NOTE | 2021-02-22 11:38 | HP.PCM.HOS_ITS ---
HPI - General General Date of Admission: 02/22/21 Chief Complaint: Dizziness, presyncope - 1 day HPI Narrative MU WINCHESTER, is a 76 F who presents with complaints of dizziness, presyncope that started around 11 February. Patient lives at home with her and grandchild who has MRDD. She was recently diagnosed with Covid. They have been at home. She has been progressively weak. She had fever earlier on in her sickness. She has had 3 episodes of diarrhea to have lasted for 1 day since her symptoms started. A few days ago she has had her last episode of diarrhea that was severe. She has nausea but has not vomited in a couple of days. She admits to feeling very dizzy with exertion and feeling of going to pass out. She denied any chest pain or palpitations. [facility] Medical History (Updated 02/22/21 @ 17:[address] Funmi Kohli MD) Anxiety COPD (chronic obstructive pulmonary disease) CPAP (continuous positive airway pressure) dependence Depression Diabetes Diet-controlled diabetes mellitus Former smoker Generalized anxiety disorder Hyperthyroidism Hyperthyroidism Hypothyroidism Hypothyroidism Irregular heart beat Non-smoker Nonrheumatic mitral (valve) prolapse Obesity Obstructive sleep apnea syndrome Palpitations Sleep apnea Home Medications escitalopram oxalate 10 mg PO DAILY 12/02/16 [History Last Taken 12/11/17] levothyroxine 150 mcg tablet 150 mcg PO DAILY 07/27/18 [History Last Taken Unknown] lorazepam 1 mg tablet 0.5 mg PO TID PRN tab 07/27/18 [History Last Taken Unknown] Allergy/AdvReac Type Severity Reaction Status Date / Time prochlorperazine Allergy Severe Anaphylaxis Verified 02/22/21 08:44 [From Compazine] acetaminophen [From Tylenol] Allergy Rash Verified 02/22/21 08:44 aspirin Allergy Shortness Verified 02/22/21 08:44 of breath diphenhydramine Allergy Hives Verified 02/22/21 08:44 [From Benadryl] NSAIDS (Non-Steroidal Allergy Rash Verified 02/22/21 08:44 Anti-Inflamma cephalexin [From Keflex] AdvReac Unknown Unknown Verified 02/22/21 08:44 Cephalosporins AdvReac Unknown Unknown Verified 02/22/21 08:44 codeine AdvReac Unknown Unknown Verified 02/22/21 08:44 doxycycline AdvReac Unknown Unknown Verified 02/22/21 08:44 erythromycin base AdvReac Unknown Unknown Verified 02/22/21 08:44 ibuprofen [From Motrin] AdvReac Unknown Unknown Verified 02/22/21 08:44 lidocaine AdvReac Unknown Unknown Verified 02/22/21 08:44 meperidine AdvReac Unknown Unknown Verified 02/22/21 08:44 Penicillins AdvReac Unknown Unknown Verified 02/22/21 08:44 ANTIBIOTICS Allergy Severe Anaphylaxis; Uncoded 02/22/21 08:44 SOB PAIN MEDICATIONS Allergy Rash Uncoded 02/22/21 08:44 Family History Father Cancer Heart disease Mother Congestive heart failure Diabetes Surgical History History of appendectomy History of cholecystectomy History of cholecystectomy History of hysterectomy Social History (Updated 02/22/21 @ 13:10 by Priyanka Flores) adopted: No household members: spouse housing: house number of children: 3 financial difficulty paying for basics: not very hard service: No current occupational status: retired pets and animals: Yes pets and animals: dog(s) leisure activities: reading and other history of recent travel: No sexually active: No do you think of yourself as: straight/heterosexual current gender identity: female Smoking Status: Former smoker alcohol intake: never substance use type: does not use well-balanced diet: daily or most days caffeine: No eating out: 1-3 times/week during the past year weight has: remained stable what type of physical activity do you participate in: walking How many days of moderate to strenuous exercise, like a brisk walk, did you do in the last 7 days: 2 frequency: 3-4 times per week duration: 15-30 minutes/day seatbelt use: always do you feel safe at home: Yes ROS ROS Narrative Constitutional: Reports: Malaise, Weakness, Fatigue. Denies: Anorexia, Chills, Fever, Night Sweats, Weight Change Eyes: Denies: Blurred vision, Cataracts, Conjunctivae Inflammation, Pain, Redness, Vision Change HEENT: Denies: Difficulty Hearing, Difficulty Swallowing, Head Aches, Hearing Changes, Sinus Congestion, Sinus Drainage Cardiovascular: Admits to dizziness denies: Chest Pain, Orthopnea, Palpitations Respiratory: Denies: Cough, Shortness of breath at rest, Sputum production Gastrointestinal: Denies: Abdominal Pain, Nausea, Vomiting Genitourinary: Denies: Dysuria Musculoskeletal: Denies: Joint Pain, Joint stiffness, Joint swelling, Joint Tenderness Skin: Denies: Rash, Wounds Neurological: Denies: Numbness, Tingling, Focal weakness Vital Signs Vital Signs Vital Signs: 02/22/21 08:41 02/22/21 09:14 02/22/21 09:26 Temperature 98.6 F 98.0 F Temperature Source Temporal Oral Pulse Rate 57 L 56 L Pulse Rate [Lying] Pulse Rate [Sitting] Respiratory Rate 18 27 H Respiratory Effort Normal Respiratory Pattern Normal Blood Pressure 81/48 L 106/57 L Blood Pressure [Lying] Blood Pressure [Sitting] Blood Pressure Mean 59 73 Blood Pressure Mean [Lying] Blood Pressure Mean [Sitting] Pulse Ox 94 96 Oxygen Delivery Method Room Air Room Air Oxygen Flow Rate (L/min) 02/22/21 11:13 02/22/21 11:19 Temperature 98.4 F Temperature Source Temporal Pulse Rate 54 L 55 L Pulse Rate [Lying] 53 L Pulse Rate [Sitting] 54 L Respiratory Rate 16 17 Respiratory Effort Respiratory Pattern Blood Pressure 115/67 111/75 Blood Pressure [Lying] 114/64 Blood Pressure [Sitting] 116/67 Blood Pressure Mean 83 87 Blood Pressure Mean [Lying] 80 Blood Pressure Mean [Sitting] 83 Pulse Ox 94 Oxygen Delivery Method Room Air Oxygen Flow Rate (L/min) 2 Lab / Micro Data Result Diagrams: 02/22/21 09:20 02/22/21 09:20 Labs: Laboratory Results - last 24 hr 02/22/21 02/22/21 02/22/21 09:20 09:20 09:20 WBC 4.4 RBC 4.62 Hgb 13.4 Hct 41.5 MCV 89.8 MCH 29.0 MCHC 32.3 RDW Std Deviation 45.3 H RDW Coeff of Jonn 13.7 Plt Count 166 MPV 10.8 Immature Gran % (Auto) 0.700 Neut % (Auto) 68.5 Lymph % (Auto) 21.7 [place] % (Auto) 8.4 Eos % (Auto) 0.2 Baso % (Auto) 0.5 Absolute Neuts (auto) 3.0 Absolute Lymphs (auto) 0.96 Nucleated RBC % 0 Sodium 136 Potassium 3.7 Chloride 102 Carbon Dioxide 27.0 Anion Gap 7 BUN 24 H Creatinine 1.01 Estim Creat Clear Calc 43.97 Est GFR (MDRD) Af Amer 69 Est GFR (MDRD) Non-Af 57 L BUN/Creatinine Ratio 23.8 H Glucose 220 H Lactic Acid 1.4 Calcium 8.4 L Total Bilirubin 0.30 AST 22 ALT 33 Alkaline Phosphatase 78 Total Protein 6.8 Albumin 2.8 L Globulin 4.0 Albumin/Globulin Ratio 0.7 L Urine Color Urine Clarity Urine pH Ur Specific [place] Urine Protein Urine Glucose (UA) Urine Ketones Urine Occult Blood Urine Nitrite Urine Bilirubin Urine Urobilinogen Ur Leukocyte Esterase Urine RBC Urine WBC Ur Squamous Epith Cells Urine Bacteria Urine Mucus 02/22/21 09:40 WBC RBC Hgb Hct MCV MCH MCHC RDW Std Deviation RDW Coeff of Jonn Plt Count MPV Immature Gran % (Auto) Neut % (Auto) Lymph % (Auto) [place] % (Auto) Eos % (Auto) Baso % (Auto) Absolute Neuts (auto) Absolute Lymphs (auto) Nucleated RBC % Sodium Potassium Chloride Carbon Dioxide Anion Gap BUN Creatinine Estim Creat Clear Calc Est GFR (MDRD) Af Amer Est GFR (MDRD) Non-Af BUN/Creatinine Ratio Glucose Lactic Acid Calcium Total Bilirubin AST ALT Alkaline Phosphatase Total Protein Albumin Globulin Albumin/Globulin Ratio Urine Color Yellow Urine Clarity Clear Urine pH 5.0 Ur Specific [place] 1.020 Urine Protein 15 H Urine Glucose (UA) 50 H Urine Ketones Negative Urine Occult Blood 10 H Urine Nitrite Negative Urine Bilirubin Negative Urine Urobilinogen Normal Ur Leukocyte Esterase Negative Urine RBC 0 SEEN Urine WBC 0 SEEN Ur Squamous Epith Cells 0 SEEN Urine Bacteria 0 SEEN Urine Mucus 1+ Radiology Impression Chest X-Ray 02/22/21 10:25 IMPRESSION: Minimal airspace disease in the right midlung which may represent developing right-sided pneumonia. at 1042 Reported and signed by: Ruel Shukla MD Electronically Signed: Ruel Shukla MD at 10:41 EDT Tel , Service support , Assessment & Plan Assessment/Plan (1) COVID-19: (2) Pre-syncope: (3) Hypomagnesemia: PLAN: 1. Presyncope secondary to dehydration secondary to diarrhea illness from COVID-19 Patient shows evidence of dehydration from slight elevation in her creatinine. BNP is 18.9 Started on IV fluids, will continue same 2. Acute COVID-19 pneumonia with hypoxia, patient was recently in the ED and hypoxic but refused to be on oxygen She was saturation 94% on room air. Not a candidate for intensive symptoms started around 11 February Chest x-ray shows minimal airspace disease in the right midlung Patient refuses Decadron. She has not had her vaccine We will continue on breathing treatments as needed 3. Relative bradycardia, asymptomatic, will get an EKG 4. Hypomagnesemia, secondary to diarrheal illness from COVID-19, will replace 5. Rest of her chronic medical conditions including anxiety disorder/ANA/hypothyroidism all remained stable Continue home medications Visit Charges Inpatient E&M: 22853 Subs Hosp L2
[2021-02-22 12:56] LABS: D-Dimer Quantitative (DVT/PE) 0.39 FEU/ug/m (0.27-0.49)
[2021-02-22 13:08] LABS: BNP,B-Type NATRIURETIC PEPTIDE 18.9 pg/mL (0-100)
[2021-02-22] MEDS: 0.9% Normal Saline 1,000 ML 150 ML IV ×2 (13:13→20:03)
[2021-02-22 17:07] LABS: Magnesium 1.7 mg/dL (1.6-2.6)
--- NOTE | 2021-02-22 18:54 | NURSING ---
1840 This RN in room to hang Magnesium bolus, patient refused stating my Dr told me never to get a magnesium infusion as I may be allergic This RN explained that magnesium is in the body. Patient still refused infusion.
[2021-02-22] MEDS: LORazepam 0.5 MG Tablet PO (22:21)
[2021-02-22] MEDS: Escitalopram Oxalate 10 MG Tablet PO (22:21)
[2021-02-22 23:01] LABS: Bedside Glucose 110 mg/dL (70-110)
--- NOTE | 2021-02-22 23:04 | NURSING ---
Pt. got up on her own even after being educated on asking for assistance. Pt. is angry and states that nothing is being done for her symptoms. Patient offered prn medications to help alleviate symptoms such as nausea. Despite pt's complaints, Patient continues to refuse all medications at this time.
[2021-02-23] VITALS (11 sets, daily range): BP systolic 122–145; BP diastolic 43–52; PULSE 48–58; RESP 12–23; TEMP 36.7–37.2; O2SAT 92–95
[2021-02-23] MEDS: 0.9% Normal Saline 1,000 ML 150 ML IV (02:15)
[2021-02-23] MEDS: 0.9% Saline Lock 10 ML Syringe IV (04:48)
[2021-02-23 04:56] LABS: Absolute Lymphocyte Count 1.46 X10^3/uL (0.83-4.51); Absolute Neutrophil Count 2.6 X10^3/uL (2.0-7.7); Basophil# 0.02 X10^3/uL; Basophil% 0.4 % (0-1); Eosinophil# 0.06 X10^3/uL; Eosinophils% 1.3 % (0-5); Hematocrit 38.1 % (37-47); Hemoglobin 12.3 g/dL (12.0-15.0); Lymphocyte # 1.46 X10^3/ul (0.83-4.51); Lymphocyte % 32.2 % (19-41); Mean Corp Hgb Conc 32.3 g/dL (32-36); Mean Corpuscular Hgb 28.8 pg (27.0-32.0); Mean Corpuscular Volume 89.2 fL (81-99); Mean Platelet Vol. 10.2 fl (6.2-12.0); Monocyte# 0.41 X10^3/uL; Monocyte% 9.1 % (0-10); NRBC Flagged by Analyzer 0 % (0-5); Neutrophil # 2.56 X10^3/uL (2.7-7.7); Neutrophil % 56.6 % (47-70); Platelet Count 175 K/mm3 (150-450); RBC Distribution Width CV 13.6 % (11.6-14.6); RBC Distribution Width SD 44.5 fl (35.1-43.9); Red Blood Count 4.27 M/mm3 (4.2-5.4); White Blood Count 4.5 K/mm3 (4.4-11.0)
[2021-02-23 05:12] LABS: ALB/GLOB Ratio 0.7 RATIO (0.9-2.4); AST(SGOT) 25 U/L (15-37); Alanine Aminotransfer ALT/SGPT 33 U/L (13-56); Albumin, Serum 2.4 g/dL (3.2-5.0); Alkaline Phosphatase 64 U/L (45-117); Anion Gap 5 (5-15); BUN 15 mg/dL (7-18); BUN/Creat Ratio 22.4 RATIO (10-20); Calcium,Total 7.9 mg/dL (8.5-10.1); Chloride 108 mmol/L (98-107); Creatinine, Serum 0.67 mg/dL (0.55-1.02); EST Glomerular Filtration Rate 92 mL/min (>60); Est Glom Filt Rate - Afr Amer 111 mL/min (>60); Estimated Creatinine Clearance 44.41 ml/min; Globulin 3.6 g/dL (2.2-4.2); Glucose 100 mg/dL (74-106); Potassium 3.8 mmol/L (3.5-5.1); Sodium Level 138 mmol/L (136-145)
--- NOTE | 2021-02-23 08:16 | PN.HOSP_ITS ---
Subjective Subjective Patient feels symptoms of dizziness, nausea but denies abdominal pain, GERD symptoms/heartburn or dyspepsia. Has chronic problem of dizziness and vertigo for many years, frequent 3 times a year. Has long history of smoking quit in 1994 Objective Data Objective Data Vital Signs: Vital Signs Temp Pulse Resp BP Pulse Ox 99.0 F 51 L 20 H 125/52 H 92 02/23/21 02:20 02/23/21 07:15 02/23/21 02:20 02/23/21 02:20 02/23/21 08:09 Oxygen Flow Rate (L/min) 2 Oxygen Delivery Method Room Air Weight: 195 lb 15.855 oz Body Mass Index (BMI) 32.1 Intake & Output: Intake and Output for Last 24 Hours 02/21/21 02/22/21 02/23/21 23:59 23:59 23:59 Intake Total 1999 1410 / 1410 Balance 1999 1410 / 1410 Lab / Micro Data Result Diagrams: 02/23/21 04:40 02/23/21 04:40 Labs: Laboratory Results - last 24 hr 02/22/21 02/22/21 02/22/21 09:20 09:20 09:20 WBC 4.4 RBC 4.62 Hgb 13.4 Hct 41.5 MCV 89.8 MCH 29.0 MCHC 32.3 RDW Std Deviation 45.3 H RDW Coeff of Jonn 13.7 Plt Count 166 MPV 10.8 Immature Gran % (Auto) 0.700 Neut % (Auto) 68.5 Lymph % (Auto) 21.7 [place] % (Auto) 8.4 Eos % (Auto) 0.2 Baso % (Auto) 0.5 Absolute Neuts (auto) 3.0 Absolute Lymphs (auto) 0.96 Nucleated RBC % 0 D-Dimer Quant (PE/DVT) Sodium 136 Potassium 3.7 Chloride 102 Carbon Dioxide 27.0 Anion Gap 7 BUN 24 H Creatinine 1.01 Estim Creat Clear Calc 43.97 Est GFR (MDRD) Af Amer 69 Est GFR (MDRD) Non-Af 57 L BUN/Creatinine Ratio 23.8 H Glucose 220 H Lactic Acid 1.4 Calcium 8.4 L Magnesium Total Bilirubin 0.30 AST 22 ALT 33 Alkaline Phosphatase 78 B-Natriuretic Peptide Total Protein 6.8 Albumin 2.8 L Globulin 4.0 Albumin/Globulin Ratio 0.7 L Urine Color Urine Clarity Urine pH Ur Specific [place] Urine Protein Urine Glucose (UA) Urine Ketones Urine Occult Blood Urine Nitrite Urine Bilirubin Urine Urobilinogen Ur Leukocyte Esterase Urine RBC Urine WBC Ur Squamous Epith Cells Urine Bacteria Urine Mucus POC Glucose 02/22/21 02/22/21 02/22/21 09:20 09:20 09:20 WBC RBC Hgb Hct MCV MCH MCHC RDW Std Deviation RDW Coeff of Jonn Plt Count MPV Immature Gran % (Auto) Neut % (Auto) Lymph % (Auto) [place] % (Auto) Eos % (Auto) Baso % (Auto) Absolute Neuts (auto) Absolute Lymphs (auto) Nucleated RBC % D-Dimer Quant (PE/DVT) 0.39 Sodium Potassium Chloride Carbon Dioxide Anion Gap BUN Creatinine Estim Creat Clear Calc Est GFR (MDRD) Af Amer Est GFR (MDRD) Non-Af BUN/Creatinine Ratio Glucose Lactic Acid Calcium Magnesium 1.7 Total Bilirubin AST ALT Alkaline Phosphatase B-Natriuretic Peptide 18.9 Total Protein Albumin Globulin Albumin/Globulin Ratio Urine Color Urine Clarity Urine pH Ur Specific [place] Urine Protein Urine Glucose (UA) Urine Ketones Urine Occult Blood Urine Nitrite Urine Bilirubin Urine Urobilinogen Ur Leukocyte Esterase Urine RBC Urine WBC Ur Squamous Epith Cells Urine Bacteria Urine Mucus POC Glucose 02/22/21 02/22/21 02/23/21 09:40 22:27 04:40 WBC 4.5 RBC 4.27 Hgb 12.3 Hct 38.1 MCV 89.2 MCH 28.8 MCHC 32.3 RDW Std Deviation 44.5 H RDW Coeff of Jonn 13.6 Plt Count 175 MPV 10.2 Immature Gran % (Auto) 0.400 Neut % (Auto) 56.6 Lymph % (Auto) 32.2 [place] % (Auto) 9.1 Eos % (Auto) 1.3 Baso % (Auto) 0.4 Absolute Neuts (auto) 2.6 Absolute Lymphs (auto) 1.46 Nucleated RBC % 0 D-Dimer Quant (PE/DVT) Sodium Potassium Chloride Carbon Dioxide Anion Gap BUN Creatinine Estim Creat Clear Calc Est GFR (MDRD) Af Amer Est GFR (MDRD) Non-Af BUN/Creatinine Ratio Glucose Lactic Acid Calcium Magnesium Total Bilirubin AST ALT Alkaline Phosphatase B-Natriuretic Peptide Total Protein Albumin Globulin Albumin/Globulin Ratio Urine Color Yellow Urine Clarity Clear Urine pH 5.0 Ur Specific [place] 1.020 Urine Protein 15 H Urine Glucose (UA) 50 H Urine Ketones Negative Urine Occult Blood 10 H Urine Nitrite Negative Urine Bilirubin Negative Urine Urobilinogen Normal Ur Leukocyte Esterase Negative Urine RBC 0 SEEN Urine WBC 0 SEEN Ur Squamous Epith Cells 0 SEEN Urine Bacteria 0 SEEN Urine Mucus 1+ POC Glucose 110 02/23/21 04:40 WBC RBC Hgb Hct MCV MCH MCHC RDW Std Deviation RDW Coeff of Jonn Plt Count MPV Immature Gran % (Auto) Neut % (Auto) Lymph % (Auto) [place] % (Auto) Eos % (Auto) Baso % (Auto) Absolute Neuts (auto) Absolute Lymphs (auto) Nucleated RBC % D-Dimer Quant (PE/DVT) Sodium 138 Potassium 3.8 Chloride 108 H Carbon Dioxide 25.0 Anion Gap 5 BUN 15 Creatinine 0.67 Estim Creat Clear Calc 44.41 Est GFR (MDRD) Af Amer 111 Est GFR (MDRD) Non-Af 92 BUN/Creatinine Ratio 22.4 H Glucose 100 Lactic Acid Calcium 7.9 L Magnesium Total Bilirubin 0.30 AST 25 ALT 33 Alkaline Phosphatase 64 B-Natriuretic Peptide Total Protein 6.0 L Albumin 2.4 L Globulin 3.6 Albumin/Globulin Ratio 0.7 L Urine Color Urine Clarity Urine pH Ur Specific [place] Urine Protein Urine Glucose (UA) Urine Ketones Urine Occult Blood Urine Nitrite Urine Bilirubin Urine Urobilinogen Ur Leukocyte Esterase Urine RBC Urine WBC Ur Squamous Epith Cells Urine Bacteria Urine Mucus POC Glucose Radiography Diagnostic Testing: Radiology Impression Chest X-Ray 02/22/21 10:25 IMPRESSION: Minimal airspace disease in the right midlung which may represent developing right-sided pneumonia. at 1042 Reported and signed by: Ruel Shukla MD Electronically Signed: Ruel Shukla MD at 10:41 EDT Tel , Service support , Physical Exam Narrative General: Alert, Oriented x3, Cooperative, feels sick HEENT: Atraumatic, PERRLA, EOMI, Normocephalic Oral: No Gingival or Mucosal Lesions/ Ulcerations Neck: Supple, No JVD, Negative Carotid Bruits Lungs: Air entry diminished in bilateral lung bases. No crepitation/rhonchi Cardiovascular: Regular rate, Regular Rhythm, Normal S1, Normal S2, No murmurs Abdomen: Bowel Sounds Present, Soft, Non Tender, Non-Distended. No palpable mass : No renal angle tenderness. No suprapubic tenderness. Extremities: No edema, Capillary Refill Less than 3 Seconds Skin: No rashes, No breakdown Musculoskeletal: No Tenderness to Palpation of Joints or Extremities Neurological: Cranial nerves II-XII grossly intact, Deep Tendon Reflexes 2+/4 and Symmetrical, Neuro grossly intact Psych/Mental Status: Normal Affect, Appropriate. Assessment & Plan Assessment/Plan (1) COVID-19: (2) Pre-syncope: (3) Hypomagnesemia: PLAN: 1. Presyncope secondary to dehydration secondary to diarrhea illness from COVID-19 most probably due to dehydration: On IV fluid. Serum electrolytes are normal. IV fluid rate decreased. 2. Acute COVID-19 pneumonia with hypoxia: Currently not on oxygen. Continue bronchodilator as needed. Chest x-ray shows minimal airspace disease in the right midlung Patient refuses Decadron. She has not had her vaccine 3. Relative bradycardia, asymptomatic, cardiogram shows sinus bradycardia, heart rate in 50s 4. Hypomagnesemia, secondary to diarrheal illness from COVID-19, magnesium was 1.7 on 02/22 5. Rest of her chronic medical conditions including anxiety disorder/ANA/hypothyroidism all remained stable Home medication reconciliation done. Visit Charges Inpatient E&M: 01994 [facility] Hosp L2
[2021-02-23 09:54] LABS: Magnesium 2.2 mg/dL (1.6-2.6)
--- NOTE | 2021-02-23 13:00 | CASEMGMT ---
ZEN DAVILA ASSESSMENT COVID-19 +. In isolation precautions. Pt states she did have COVID testing done @ [facility] on 02/11/21 which was + for COVID. ZEN DAVILA placed call to pt's room for initial transition planning/care coordination assessment. ZEN DAVILA introduced self and role at [facility]. Pt voices understanding and consents to assessment at this time. Pt is A/O at this time and answers all questions appropriately. Care providers, pharmacy, and demographics verified/updated at this time. PCP: Dr Corinne Panda @ [facility]. Call placed to Registration to have this added to pt's demographics. Specialists: CARBURETOR REBUILDER: Maria G Greenfield--cardiology @ [facility], Dr River Love--Fruit Coordinator in [place]. Preferred Pharmacy: [facility] Insurance: [facility], [place] [facility] [place] Prescription Benefit: yes Living Will/HPOA: Has both LW and Healthcare POA, who is her , Nacho LNOK: , Nacho. They have 6 adult children and over 20 grand/great-grandchildren. Living Arrangements:Pt lives w/her in 2-story home w/many steps to enter through the front entrance. Ramp entrance in back of house. 1/2 bath and bedroom is on 1st floor. Pt denies difficulty w/stairs. Pt's 25-yr-old handicapped granddaughter lives w/them and pt and her help to take care of her. Pt states she is independent w/ADL's and manages most home mgmt tasks. is also currently hospitalized w/COVID. Pt states their granddaughter has not had any COVID symptoms and she is being cared for by their friends while pt and her are hospitalized. Pt states they have family/friends that can get groceries/supplies for them while they are quarantining. They have disinfectants, masks, and hand patient transportation driver. Transportation: Pt states drives self and states no transportation concerns at this time. also drives. DME: States has the following DME: shower chair lift, stair lift, glucometer, [facility] HHC/SNF: No history of SNF or HHC. . Pt wishes to return home and states has no concerns with going home at time of discharge. She denies need for HHC. CM to follow for any oxygen needs or any discharge planning/needs. Pt voices no concerns/needs at this time. Advised pt to ask for CM if any questions/concerns/needs arise. Voices understanding. PLAN: Home PT/OT evals pending. CM to follow for any O2 needs @ d/c. Tatyana WATKINSN RN CM
[2021-02-23] MEDS: 0.9% Normal Saline 1,000 ML 75 ML IV (14:04)
--- NOTE | 2021-02-23 14:46 | CHAPLAIN ---
Type of Pastoral Visit ___ Initial Visit ___ Follow-up Visit ___ On-call Visit ___ General Patient Visit ___ Spiritual Assessment ___ Family Conference ___ Bereavement ___ Rapid Response ___ Code Blue _x__ Other (describe below) Pastoral Care Referral From _x__ Patient ___ Family ___ Nurse ___ Physician ___ Level Vial Marker ___ Invasive Manager ___ Other (describe below) Sacrament/Intervention _x__ Active listening ___ Anointing ___ Confucianism ___ Bereavement ___ Communion ___ Jennifer exploration ___ ___ Life review _x__ Prayer ___ Reconciliation ___ Sacrament of Sick ___ Supportive presence ___ Wedding ___ Other (describe below) Pastoral Comments phone call made into isolation room; pt answers phone and is able to clearly talk and express herself; pt feeling better; oriental orthodox has been contacted; concern is for she and her spouse to get well soon and granddaughter to be cared for
[2021-02-23] MEDS: LORazepam 0.5 MG Tablet PO (21:36)
[2021-02-23] MEDS: Escitalopram Oxalate 10 MG Tablet PO (21:36)
[2021-02-24] VITALS (8 sets, daily range): BP systolic 108–145; BP diastolic 46–62; PULSE 47–60; RESP 15–18; TEMP 36–36.6; O2SAT 94–95
[2021-02-24 03:21] LABS: Bedside Glucose 99 mg/dL (70-110)
[2021-02-24] MEDS: 0.9% Normal Saline 1,000 ML 75 ML IV (03:45)
--- NOTE | 2021-02-24 08:23 | PCM.DC ---
Discharge Instructions Diet Discharge Diet: Low fat / Low cholesterol and 1800 Calorie Control Diet Activity Discharge Activity: May Not Drive (for 2 weeks) Additional Activity Instructions:: Self quarantine until 03/03 self quarantine until 03/03/2021. Advised vaccination at that time By ID Dressing / Incision Call your doctor if you observe: Fever of 101 or Higher, Coldness, Increased Pain, Numbness or Tingling, Change in Color, Inability to urinate, Inability to have a bowel movement, Using more than one pad per hour, Shortness of breath, Dizziness, Fainting spells, Swelling in the ankles, Prolonged hiccupping, Increased palpitations (irregular heartbeat), Calf discomfort and Uncontrolled pain Follow Up Care Test Results: Test results from this visit will be discussed in further detail at your follow-up appointment, if applicable. Discharge Plan Admission Admit Date/Time: 02/23/21 15:38 Primary Reason for Your Visit: Covid 19 infection Attending Provider: Emil Muñoz Primary Care Provider: Corinne Panda Consulting Providers: Ross Kunz Instructions Patient Instructions: COVID-19 and the Flu: What's the Difference? Discharge Orders/Prescriptions Prescriptions: New albuterol sulfate [Ventolin HFA] 90 mcg/actuation Hfa Aerosol Inhaler 2 puff inhalation Q4H PRN PRN (Reason: sob) Qty: 6.7 RF: 0 Continued levothyroxine [Synthroid] 150 mcg tablet 150 mcg PO DAILY RF: 0 escitalopram oxalate 10 MG tablet 10 mg PO DAILY RF: 0 lorazepam 1 mg tablet 0.5 mg PO TID PRN (Reason: Anxiety) RF: 0 Referrals / Follow Up: Corinne Panda, [Primary Care Provider] - Within 2 Weeks (Discussed with PCP if she can take Claritin-D as she has allergy with Benadryl with hives.) Disposition Disposition (needs filled in before D/C Order can be placed): Home, self care
--- NOTE | 2021-02-24 08:33 | DS.PCM_ITS ---
Providers Date of Admission: 02/23/21 Primary Care Physician: Dr. Corinne Panda, Consultations 02/22/21 12:46 Consult: Infectious Disease Routine Consulting Provider: Ross Kunz Reason for Consult: Covid-19 EMERGENT Consult: No MD Notified: Yes Date Notified:: 02/22/21 Time Notified: 09:11 Method of Notification: Answering Service Reason For Visit: PRESYNCOPE Diagnosis Discharge Diagnosis (1) COVID-19: Status: Acute Code(s): U07.1 - COVID-19 (2) Pre-syncope: Status: Acute Code(s): R55 - Syncope and collapse (3) Hypomagnesemia: Status: Acute Code(s): E83.42 - Hypomagnesemia Medications at Discharge Home Medications escitalopram oxalate 10 mg PO DAILY 12/02/16 lorazepam 1 mg tablet 0.5 mg PO TID PRN tab 07/27/18 albuterol sulfate [Ventolin HFA] 2 puff INHALATION Q4H PRN PRN #6.7 g 02/24/21 levothyroxine [Synthroid] 150 mcg PO DAILY 02/24/21 Hospital Course Summary of Care Provided Hospital Course: ?This 76-year-old female was admitted for dizziness, presyncope, started on February 11 who was diagnosed with Covid on February 11. She also had 3 episodes of diarrhea. No syncope. 1.? Presyncope secondary to dehydration secondary to diarrhea illness from COVID-19 most probably due to dehydration: On IV fluid.? Serum electrolytes are normal.? Dizziness much improved. She has allergy with antihistaminics, Benadryl therefore patient concerned of taking Antivert. Advised to discuss w [facility] PCP. 2.? Acute COVID-19 pneumonia with hypoxia: Currently not on oxygen.? Continue bronchodilator as needed. Hypoxia resolved. Chest x-ray shows minimal airspace disease in the right midlung Patient refuses Decadron and remdesivir. Patient was advised to vaccine she is not vaccinated yet. 3.? Relative bradycardia, asymptomatic, cardiogram shows sinus bradycardia, heart rate in 50s 4.? Hypomagnesemia, secondary to diarrheal illness from COVID-19, magnesium was 1.7 on 02/22 5.? Rest of her chronic medical conditions including anxiety disorder/ANA/hypothyroidism all remained stable Discharge medication reconciliation done. Discharge follow-up instructions completed. Discharge process discussed with the patient and all questions were answered to patient's satisfaction. Discharged home. Self quarantine until 03/03/2021. Total time spent, exact 35 minutes on discharge meds reconciliation, examination, coordination of care with nurses and ancillary staff, review of imaging and blood test and discussion with the patient on follow-up instructions Physical Exam Narrative Patient does not have shortness of breath, cough or hypoxia. Patient dizziness is improved. Physical exam General: Alert, Oriented x3, Cooperative, feels sick HEENT: Atraumatic, PERRLA, EOMI, Normocephalic Oral: No Gingival or Mucosal Lesions/ Ulcerations Neck: Supple, No JVD, Negative Carotid Bruits Lungs: Air entry diminished in bilateral lung bases. No crepitation/rhonchi Cardiovascular: Regular rate, Regular Rhythm, Normal S1, Normal S2, No murmurs Abdomen: Bowel Sounds Present, Soft, Non Tender, Non-Distended. No palpable mass : No renal angle tenderness. No suprapubic tenderness. Extremities: No edema, Capillary Refill Less than 3 Seconds Skin: No rashes, No breakdown Musculoskeletal: No Tenderness to Palpation of Joints or Extremities Neurological: Cranial nerves II-XII grossly intact, Deep Tendon Reflexes 2+/4 and Symmetrical, Neuro grossly intact Psych/Mental Status: Normal Affect, Appropriate. ABG / Lab / Microbiology Data Result Diagrams: 02/23/21 04:40 02/23/21 04:40 Laboratory: Laboratory Results - last 24 hr 02/23/21 02/23/21 04:40 21:32 Magnesium 2.2 POC Glucose 99 D/C Instructions Discharge Diet: Low fat / Low cholesterol and 1800 Calorie Control Diet Discharge Activity: May Not Drive (for 2 weeks) Additional Activity Instructions: Self quarantine until 03/03 self quarantine until 03/03/2021. Advised vaccination at that time By ID Call your doctor if you observe: Fever of 101 or Higher, Coldness, Increased Pain, Numbness or Tingling, Change in Color, Inability to urinate, Inability to have a bowel movement, Using more than one pad per hour, Shortness of breath, Dizziness, Fainting spells, Swelling in the ankles, Prolonged hiccupping, Increased palpitations (irregular heartbeat), Calf discomfort and Uncontrolled pain Meaningful Use Info Meaningful Use Diagnoses (Choose all that apply): None applicable Discharge Plan Admission Admit Date/Time: 02/23/21 15:38 Primary Reason for Your Visit: Covid 19 infection Attending Provider: Emil Muñoz Primary Care Provider: Corinne Panda Instructions Patient Instructions: COVID-19 and the Flu: What's the Difference? Discharge Orders/Prescriptions Prescriptions: New albuterol sulfate [Ventolin HFA] 90 mcg/actuation Hfa Aerosol Inhaler 2 puff inhalation Q4H PRN PRN (Reason: sob) Qty: 6.7 RF: 0 Continued escitalopram oxalate 10 MG tablet 10 mg PO DAILY RF: 0 lorazepam 1 mg tablet 0.5 mg PO TID PRN (Reason: Anxiety) RF: 0 No Action levothyroxine [Synthroid] 50 mcg tablet 150 mcg PO DAILY RF: 0 Referrals / Follow Up: Corinne Panda, [Primary Care Provider] - Within 2 Weeks (Discussed with PCP if she can take Claritin-D as she has allergy with Benadryl with hives.) Disposition Disposition (needs filled in before D/C Order can be placed): Home, self care Visit Charges Inpatient E&M: 54699 Disch Hosp
--- NOTE | 2021-02-24 09:15 | CASEMGMT ---
SW spoke w/pt in regard to homegoing needs. Pt declined any referrals for home health, she states she can care for herself. She anticipates going home today. KAVON Orozco
[2021-02-24] MEDS: 0.9% Saline Lock 10 ML Syringe IV (09:23)
[2021-02-24] MEDS: LORazepam 0.5 MG Tablet PO (09:23)
--- NOTE | 2021-02-24 11:00 | NURSING ---
Around 11:00AM Patient requested for to eat lunch and visit in her room. At 11:30AM I wheeled into the patients room.
[2021-02-24 12:30] LABS: Bedside Glucose 104 mg/dL (70-110)
--- NOTE | 2021-02-24 12:40 | NURSING ---
Patient requesting to take home synthroid dose but will only take 50mcg tablets due to the dyes in 150mcg tabs. Spoke to the pharmacist, Doris and had order changed to 50mcg tablets. After giving the patient 2-50mcg tablets (because she refused the full dose), she proceeded to say she can not take levothyroxine and has to take brand name Synthroid. She did not verbalize that concern to this nurse prior to administering the med. PT very upset and verbally aggressive towards staff. Insisting on talking to the hospital physician practice administrator. Teresa Lanier, ICU Director notified of situation.
[2021-02-24] MEDS: Levothyroxine 50 MCG Tablet 150 MCG PO (13:03)
--- NOTE | 2021-02-24 13:30 | NURSING ---
Around 13:30 Patients became confused and was standing in the room setting off the personal alarm. I stood in the doorway since both patients were in isolation and asked patients what he needed and why he was standing. The was confused and couldn't hear me. So I repeated myself and asked the patients to please sit down because I didn't want him to fall. The patient (the ) then got very agitated and said you know what grab my paper work we're leaving. I asked her what was wrong and patient did not respond she just repeated herself and said to get the paper work. I offered to assist both patients with getting dressed and she refused for me to help her and her . Patient was very agitated and would no longer speak to me and other staff.
--- NOTE | 2021-02-24 14:02 | NURSING ---
Called to room to assist staff as patient was upset and demanded to talk to the hospital business administrator. I approached patient who was walking in the dugan to her husbands room to obtain walker and introduced myself. She stated i don't want the Director, I want the County Coroner and walked back into her room shutting the door. Patient Advocate and human service worker called for assistance.
--- NOTE | 2021-02-24 14:45 | NURSING ---
Patient advocate, Frandy Corbin talked with patient and at length. Pt reported itching from synthroid to Frandy but refused any medication to treat the itching when offered.
--- NOTE | 2021-02-25 14:19 | CASEMGMT ---
Addendum entered by Jarad Panda 02/25/21 14:24: Correction: Lace: 11 (not 9) Original Note: RN GIOVANNI Discharge Follow-Up Phone Call. Olga: 9 Strata: 3 Discharge Date: 02/24/21 Adm Dx: Pre-syncope Call to pt to inquire about how she and her have been doing since being discharged from the hospital. Pt reviewed things re: her husbands medications and instructions (see documentation in his chart) w/ZEN DAVILA. When RN GIOVANNI inquired of pt how she has been doing and if she has any questions re: her own medications and instructions, she stated, I don't have time to worry about mine. He's my concern right now. Tatyana WATKINSN ZEN DAVILA
== END 2021-02-24 15:05 | disposition home or self-care (01) | DRG 640 ==
LOC: ED 11:07 → ICU 11:36
PROVIDERS: Admitting Provider Internal Medicine; Emergency Provider Emergency Medicine; Visit Provider Internal Medicine
DX: E86.0 Dehydration (principal); J12.82 Pneumonia due to coronavirus disease 2019; U07.1 COVID-19; R55 Syncope and collapse; R19.7 Diarrhea, unspecified; R09.02 Hypoxemia; R00.1 Bradycardia, unspecified; E83.42 Hypomagnesemia; Z87.891 Personal history of nicotine dependence
CPT/HCPCS: 71045; 80053; 81001; 82962; 83605; 83735; 83880; 85025; 85379; 93005; 97162; 97166; 99285; J7030; A4216

== ENCOUNTER → 2021-04-09 10:33 | Outpatient (CLI) | payer MEDICARE, OTHER, SELFPAY ==
[2021-02-22 12:47] VITALS: BMI 32.1
[2021-04-09 12:11] LABS: Erythrocyte Sedimentation Rate 30 mm/hr (0-30)
[2021-04-09 12:21] LABS: CRP < 2.90 mg/L (0.0-3.0)
[2021-04-10 14:45] LABS: ANTINUCLEAR ANTIBODIES DIRECT Positive (Negative)
[2021-04-14 16:08] LABS: Cytoplasmic Ab (C-ANCA) <1:20 titer (Neg:<1:20)
[2021-04-14 20:08] LABS: Perinuclear Ab (P-ANCA) <1:20 titer (Neg:<1:20)
== END ==
PROVIDERS: Referring Provider Psychiatry & Neurology Neurology; Visit Provider Psychiatry & Neurology Neurology
DX: M31.6 Other giant cell arteritis (principal)
CPT/HCPCS: 36415; 85652; 86038; 86140; 86256

== ENCOUNTER → 2021-04-27 12:46 | Outpatient (CLI) | payer MEDICARE, OTHER, SELFPAY ==
[2021-02-22 12:47] VITALS: BMI 32.1
--- NOTE | 2021-04-27 13:00 | US_ITS ---
STUDY: RENAL ULTRASOUND - COMPLETE REASON FOR EXAM: Female, 76 years old. Elevated BUN/creatinine TECHNIQUE: Ultrasound evaluation of the kidneys was performed with real-time and static moralez-scale imaging. COMPARISON: None. FINDINGS: RIGHT KIDNEY: Normal location of the right kidney, which is normal in size. The right kidney measures 9.9 x 5.2 x 4.3 cm. There is a normal cortex of the right kidney. The renal cortex measures 1.1 cm. There is a simple 1.9 cm cyst. There are no right renal calculi. There is no right hydronephrosis. DISTAL RIGHT URETER: There is non-visualization of the distal right ureter. There is no demonstrated right ureterovesical junction calculus. There is a visualized right ureteral jet. LEFT KIDNEY: Normal location of the left kidney, which is normal in size. The left kidney measures 10.9 x 4.5 x 5.4 cm. There is a normal cortex of the left kidney. The renal cortex measures 1.2 cm. Multiple simple cysts, largest measures 2.2 cm There are no left renal calculi. There is no left hydronephrosis. DISTAL LEFT URETER: There is non-visualization of the distal left ureter. There is no demonstrated left ureterovesical junction calculus. There is a visualized left ureteral jet. AORTA: There is no elongation or tortuosity of the abdominal aorta. I.V.C.: The IVC is patent. BLADDER: The bladder is sonographically normal US/Kidney and Bladder IMPRESSION: No suspicious sonographic findings, simple bilateral renal cysts. No specific follow-up needed Electronically Signed: Geo Funes MD at 10:48 EDT , Service support ,
== END ==
PROVIDERS: Visit Provider Student in an Organized Health Care Education/Training Program
DX: E11.22 Type 2 diabetes mellitus with diabetic chronic kidney disease (principal); N18.30 Chronic kidney disease, stage 3 unspecified
CPT/HCPCS: 76770

== ENCOUNTER → 2021-05-01 09:21 | Outpatient (CLI) | payer MEDICARE, OTHER, SELFPAY ==
[2021-02-22 12:47] VITALS: BMI 32.1
[2021-05-01 12:14] LABS: Hematocrit 44.1 % (37-47); Hemoglobin 13.7 g/dL (12.0-15.0); Mean Corp Hgb Conc 31.1 g/dL (32-36); Mean Corpuscular Hgb 28.5 pg (27.0-32.0); Mean Corpuscular Volume 91.7 fL (81-99); POSITIVE COUNT YES; RBC Distribution Width CV 14.7 % (11.6-14.6); RBC Distribution Width SD 49.1 fl (35.1-43.9); Red Blood Count 4.81 M/mm3 (4.2-5.4); White Blood Count 5.6 K/mm3 (4.4-11.0)
[2021-05-01 12:24] LABS: Scan Indicated on CBC? Y/N YES- FLAGS NOTED
[2021-05-01 12:31] LABS: Anion Gap 6 (5-15); BUN 30 mg/dL (7-18); BUN/Creat Ratio 29.7 RATIO (10-20); Calcium,Total 8.8 mg/dL (8.5-10.1); Chloride 105 mmol/L (98-107); Creatinine, Serum 1.01 mg/dL (0.55-1.02); EST Glomerular Filtration Rate 57 mL/min (>60); Est Glom Filt Rate - Afr Amer 69 mL/min (>60); Ferritin 151 ng/mL (8-252); Glucose 141 mg/dL (74-106); Iron 85 ug/dL (50-170); Iron Binding Capacity,Total 319 ug/dL (250-450); PERCENT IRON SATURATION 26.6 % (15.0-55.0); Potassium 3.8 mmol/L (3.5-5.1); Sodium Level 141 mmol/L (136-145)
[2021-05-01 12:41] LABS: Hemoglobin A1c 6.1 % (3.8-5.6)
[2021-05-01 12:43] LABS: Color, Urine Yellow (Yellow); Glucose, Dipstick Normal (Normal); Ketone-Dipstick Negative (Negative); Leukocyte Esterase-Dipstick 500 /ul (Negative); Nitrite-Dipstick Negative (Negative); Occult Blood-Urine 10 /ul (Negative); Protein-Dipstick 15 mg/dl (Negative); Urine Bilirubin Dipstick Negative (Negative); Urine Clarity Sl. Cloudy (Clear); Urine Urobilinogen Normal (Normal)
[2021-05-01 13:00] LABS: Protein, Urine (Random) 14.2 mg/dL (<11.9); Protein:Creat Ratio 104 mg/g CRE (0-200)
[2021-05-01 13:02] LABS: Osmolality, Urine 665 mOsm/KG
[2021-05-01 13:13] LABS: Differential Comment SCANNED
[2021-05-01 14:09] LABS: PTHIN 65.1 pg/mL (18.4-80.1)
[2021-05-01 14:10] LABS: Vitamin D,25 Hydroxy 23.9 ng/mL
== END ==
PROVIDERS: Referring Provider Student in an Organized Health Care Education/Training Program; Visit Provider Student in an Organized Health Care Education/Training Program
DX: E11.22 Type 2 diabetes mellitus with diabetic chronic kidney disease (principal); N18.30 Chronic kidney disease, stage 3 unspecified
CPT/HCPCS: 36415; 80048; 81002; 82306; 82570; 82728; 83036; 83540; 83550; 83935; 83970; 84156; 85027

== ENCOUNTER 2021-05-20 12:00 | Outpatient (RCR) | payer MEDICARE, OTHER, SELFPAY ==
[2021-02-22 12:47] VITALS: BMI 32.1
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
--- NOTE | 2021-07-17 07:36 | HP.PTDCNRP_ITS ---
MU WINCHESTER was seen in my office for initial evaluation on 04/22/21. The following Plan of Care was established for this patient: Initial Frequency: 1-2x /Week Initial Duration: 4-6 Weeks Patient/Client Instruction: Educate patient on: Condition, Plan of Care For the Purpose of:: To decrease pain, To increase tolerance to activity/condition/position Therapeutic Exercise to Include: Balance training For the Purpose of:: To decrease pain, To increase tolerance to activity/condition/position, To improve gait and locomotor functions, To improve safety This patient was last seen in our office 05/20/21. Pertinent comments regarding their Physical therapy will appear below: Pt seen 4 visits of vestibular treatment and was m90% better. She was to f/u the following week for recheck and [place] Concussion test as ordered by doctor but did not schedule or attend. at this point, it has been nearly two months and I will discontinue from my care. At this point I will be discontinuing this patient from physical therapy. I would be happy to see this patient again in the future if found appropriate by the physician. Thank you! Omar Russell, DPT, OCS, CSCS Balance/Gait/Functional tests - Balance/Special Test Scores Functional Gait Assessment Score: 26 % Disability: 13.3400 Dizziness Score: 30
== END 2021-05-20 19:00 | disposition home or self-care (01) ==
LOC: PT 12:00
PROVIDERS: Referring Provider Psychiatry & Neurology Neurology; Visit Provider Psychiatry & Neurology Neurology
DX: R42 Dizziness and giddiness (principal)
CPT/HCPCS: 97163; 97530

== ENCOUNTER 2021-10-12 11:41 | Outpatient (CLI) | payer MEDICARE, OTHER, SELFPAY | END 2021-10-12 23:59 | disposition short-term general hospital (02) | LOC: MTLAB 11:43 | PROVIDERS: Referring Provider Specialist; Visit Provider Specialist | DX: E03.9 Hypothyroidism, unspecified (principal) | CPT/HCPCS: 36415; 84443 ==

== ENCOUNTER 2021-12-15 13:12 | Outpatient (CLI) | payer MEDICARE, OTHER, SELFPAY ==
[2021-12-15 15:33] LABS: Hemoglobin 14.2 g/dL (12.0-15.0); Mean Corp Hgb Conc 32.3 g/dL (32-36); Mean Corpuscular Hgb 29.2 pg (27.0-32.0); Mean Corpuscular Volume 90.5 fL (81-99); Mean Platelet Vol. 11.6 fl (6.2-12.0); Platelet Count 154 K/mm3 (150-450); RBC Distribution Width CV 13.8 % (11.6-14.6); RBC Distribution Width SD 46.5 fl (35.1-43.9); Red Blood Count 4.86 M/mm3 (4.2-5.4); White Blood Count 5.7 K/mm3 (4.4-11.0)
[2021-12-15 15:53] LABS: Anion Gap 3 (5-15); BUN 28 mg/dL (7-18); BUN/Creat Ratio 33.5 RATIO (10-20); Calcium,Total 8.8 mg/dL (8.5-10.1); Chloride 105 mmol/L (98-107); Creatinine, Serum 0.84 mg/dL (0.55-1.02); EST Glomerular Filtration Rate 71 mL/min (>60); Est Glom Filt Rate - Afr Amer 86 mL/min (>60); Ferritin 138 ng/mL (8-252); Glucose 101 mg/dL (74-106); Iron 71 ug/dL (50-170); Iron Binding Capacity,Total 328 ug/dL (250-450); PERCENT IRON SATURATION 21.6 % (15.0-55.0); Potassium 4.1 mmol/L (3.5-5.1); Sodium Level 138 mmol/L (136-145)
== END 2021-12-15 23:59 | disposition home or self-care (01) ==
LOC: MTLAB 13:15
PROVIDERS: Referring Provider Student in an Organized Health Care Education/Training Program; Visit Provider Student in an Organized Health Care Education/Training Program
DX: N18.31 Chronic kidney disease, stage 3a (principal); D63.1 Anemia in chronic kidney disease
CPT/HCPCS: 36415; 80048; 82728; 83540; 83550; 83970; 85027

== ENCOUNTER 2022-02-14 14:58 | Emergency (ER) | payer MEDICARE, OTHER, SELFPAY ==
[2022-02-14 15:00] VITALS: BP 139/80; PULSE 55; RESP 24; TEMP 36.2; O2SAT 94; BMI 32.1
[2022-02-14 15:03] VITALS: BP 139/80; PULSE 55; RESP 24; TEMP 36.2; O2SAT 94
[2022-02-14 15:08] VITALS: O2SAT 95
--- NOTE | 2022-02-14 15:12 | EKG12_ITS ---
Test Reason : CP Blood Pressure : / mmHG Vent. Rate : 055 BPM Atrial Rate : 055 BPM P-R Int : 146 ms QRS Dur : 086 ms QT Int : 426 ms P-R-T Axes : 074 002 045 degrees QTc Int : 407 ms Sinus bradycardia Otherwise normal ECG Confirmed by MECHELLE FINCH, SOCORRO ([id number]), editor sound JEAN CLAUDE CANALES ([id number]) on 02/15/2022 1:12:36 PM Referred By: Confirmed By:SOCORRO MIN MD
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
[2022-02-14 16:02] VITALS: PULSE 54; RESP 16; O2SAT 93
--- NOTE | 2022-02-14 18:31 | ED.RN ---
P[T CALLS BACK TO THE DEPARTMENT ANGRY ABOUT HER TREATMENT. PT STATES I CALLED [facility] AND THEY STATES I SHOULD BE TREATED WITH ALBUTEROL. THIS RN TALKED WITH PHYSICIAN. PHYSICIAN STATES PT DID NOT WANT MEDICATIONS AND THAT SHE WAS MORE THEN WELCOME TO RETURN. THIS RN TALKS WITH PT, OFFERED PT TO RETURN FOR TREATMENT ON 3 DIFFERENT OCCASIONS.THIS RN ALSO OFFERED PT THE NUMBER FOR THE PATIENT ADVOCATE. PT BECOMES ANGRY WITH THIS RN AND STATES SO WHAT IF I TONIGHT, THE ADVOCATE ISN'T HELPING ME. THIS RN REITERATED TO PT THAT SHE WAS MORE THEN WELCOME TO RETURN TO DEPARTMENT. THE PT THEN HANGS UP ON THIS RN.
== END 2022-02-14 16:33 | disposition home or self-care (01) ==
PROVIDERS: Emergency Provider Student in an Organized Health Care Education/Training Program; Visit Provider Student in an Organized Health Care Education/Training Program
DX: J30.9 Allergic rhinitis, unspecified (principal); J44.9 Chronic obstructive pulmonary disease, unspecified; E11.9 Type 2 diabetes mellitus without complications; Z20.822 Contact with and (suspected) exposure to COVID-19; Z87.891 Personal history of nicotine dependence; E03.9 Hypothyroidism, unspecified; Z79.899 Other long term (current) drug therapy; Z79.890 Hormone replacement therapy; F32.A Depression, unspecified; G47.33 Obstructive sleep apnea (adult) (pediatric)
CPT/HCPCS: 87428; 93005; 99282

== ENCOUNTER 2022-05-01 10:45 | Emergency (ER) | payer MEDICARE, OTHER, SELFPAY ==
[2022-05-01 10:46] VITALS: BP 154/70; PULSE 49; RESP 16; TEMP 36.1; O2SAT 97; BMI 32.1
--- NOTE | 2022-05-01 10:56 | EKG12_ITS ---
Test Reason : cp Blood Pressure : / mmHG Vent. Rate : 049 BPM Atrial Rate : 049 BPM P-R Int : 154 ms QRS Dur : 092 ms QT Int : 442 ms P-R-T Axes : 068 -08 037 degrees QTc Int : 399 ms Sinus bradycardia Otherwise normal ECG Confirmed by MECHELLE FINCH, SOCORRO ([id number]), brands editor JEAN CLAUDE CANALES ([id number]) on 05/04/2022 9:26:42 AM Referred By: Confirmed By:SOCORRO MIN MD
--- NOTE | 2022-05-01 10:56 | RAD_ITS ---
STUDY: X-RAY CHEST REASON FOR EXAM: Female, 77 years old patient with chest pain. TECHNIQUE: Single AP portable view of the chest. COMPARISON: 02/22/2021. FINDINGS: Cardiac monitoring leads are present. The lungs are hyperexpanded. There is prominence of bronchovascular markings. There is no demonstrated pleural abnormality. There is borderline cardiomegaly. Normal mediastinum and rach. Normal visualized pulmonary arteries. There is atherosclerotic calcification of the aortic arch with tortuosity. There is demineralization of the osseous structures. There is normal curvature of the thoracic spine convexity towards the right. There are degenerative changes of the spine and both shoulders. There is no demonstrated abnormality of the visualized soft tissue structures of the upper abdomen. RAD/Chest 1 View (Portable) IMPRESSION: Normal x-ray examination of the chest. Electronically Signed: Jacy Carrion MD at 12:04 EDT ,
--- NOTE | 2022-05-01 10:57 | ED.VIS.CHEST ---
HPI History of Present Illness Chief Complaint: Chest Pain Detail of Chief Complaint: Chest pain that started prior to arrival in the emergency department. Informant: patient Onset/Context/Timing Current Severity: 0/10 Maximum Severity: Severe Narrative Narrative: Patient presents to the emergency department complaint of chest discomfort that started prior to arrival in the ER. Patient states that she was at urgent care make an appointment for her granddaughter. Patient noticed that she had some pain in her back. Patient subsequently then developed a heavy pressure in her chest that radiated into her neck and into her jaw. Symptoms lasted about 4 minutes. Patient felt somewhat nauseated afterwards. She had never had discomfort like that before. She denies recent travel or surgery. She otherwise has no heart history. She does have history of bradycardia that is chronic. Last stress test was about a year and a half ago. Patient has never had a heart catheterization. Denies recent illness. Prior Similar Symptoms: No PFSH PFSH Medical History Anxiety COPD (chronic obstructive pulmonary disease) CPAP (continuous positive airway pressure) dependence Depression Diabetes Diet-controlled diabetes mellitus Former smoker Generalized anxiety disorder Hyperthyroidism Hyperthyroidism Hypothyroidism Hypothyroidism Irregular heart beat Non-smoker Nonrheumatic mitral (valve) prolapse Obesity Obstructive sleep apnea syndrome Palpitations Sleep apnea Home Medications escitalopram oxalate 10 mg tablet 10 mg PO DAILY 12/02/16 [History Last Taken 12/11/17] lorazepam 1 mg tablet 0.5 mg PO TID PRN Anxiety 07/27/18 [History Last Taken Unknown] levothyroxine 50 mcg tablet (Synthroid) 150 mcg PO DAILY Thyroid 02/24/21 [History Last Taken Unknown] Allergy/AdvReac Type Severity Reaction Status Date / Time prochlorperazine Allergy Severe Anaphylaxis Verified 05/01/22 10:49 [From Compazine] acetaminophen [From Tylenol] Allergy Rash Verified 05/01/22 10:49 aspirin Allergy Shortness Verified 05/01/22 10:49 of breath diphenhydramine Allergy Hives Verified 05/01/22 10:49 [From Benadryl] Iodinated Contrast Media Allergy Anaphylaxis Verified 05/01/22 10:49 NSAIDS (Non-Steroidal Allergy Rash Verified 05/01/22 10:49 Anti-Inflamma cephalexin [From Keflex] AdvReac Unknown Unknown Verified 05/01/22 10:49 Cephalosporins AdvReac Unknown Unknown Verified 05/01/22 10:49 codeine AdvReac Unknown Unknown Verified 05/01/22 10:49 doxycycline AdvReac Unknown Unknown Verified 05/01/22 10:49 erythromycin base AdvReac Unknown Unknown Verified 05/01/22 10:49 ibuprofen [From Motrin] AdvReac Unknown Unknown Verified 05/01/22 10:49 lidocaine AdvReac Unknown Unknown Verified 05/01/22 10:49 meperidine AdvReac Unknown Unknown Verified 05/01/22 10:49 Penicillins AdvReac Unknown Unknown Verified 05/01/22 10:49 ANTIBIOTICS Allergy Severe Anaphylaxis; Uncoded 05/01/22 10:49 SOB PAIN MEDICATIONS Allergy Rash Uncoded 05/01/22 10:49 Family History Father Cancer Heart disease Mother Congestive heart failure Diabetes Surgical History History of appendectomy History of cholecystectomy History of cholecystectomy History of hysterectomy Social History adopted: No household members: spouse housing: house number of children: 3 current occupational status: retired pets and animals: Yes pets and animals: dog(s) leisure activities: reading and other history of recent travel: No sexually active: No Smoking Status: Former smoker alcohol intake: never substance use type: does not use well-balanced diet: daily or most days caffeine: No eating out: 1-3 times/week during the past year weight has: remained stable what type of physical activity do you participate in: walking frequency: 3-4 times per week duration: 15-30 minutes/day seatbelt use: always do you feel safe at home: Yes ROS ROS ED Review of Systems ROS Unobtainable: other Constitutional Constitutional ED: Reports lethargy; Denies chills, fever(s), sweats or weight loss Eyes Eyes: Denies blurry vision, change in vision or diplopia ENT ENT ED: Denies rhinorrhea or sore throat Cardiovascular Cardiovascular: Reports chest pain; Denies orthopnea or racing heartbeat Respiratory/Chest Respiratory/Chest: Reports dyspnea and dyspnea on exertion; Denies cough, orthopnea or sputum Gastrointestinal Gastrointestinal: Reports nausea; Denies abdominal pain, diarrhea or vomiting Genitourinary Genitourinary ED: Denies dysuria, hematuria or urinary frequency Musculoskeletal Musculoskeletal: Denies arthralgias, back pain, myalgias or neck pain Integumentary Denies abscess, Abrasions or rash Neurologic Neurologic: Denies headache(s) or weakness Psychiatric Psychiatric: Denies anxiety, depression or suicidal thoughts Endocrine Endocrinology: Denies polydipsia, polyphagia or polyuria Hematologic/Lymphatic Hematologic/Lymphatic: Denies easy bleeding, easy bruising or lymphadenopathy Allergic/Immunologic Allergic/Immunologic ED: Denies mouth swelling, tongue swelling or urticaria EXAM Physical Exam Const Vital Signs: 05/01/22 10:46 05/01/22 10:50 05/01/22 10:56 Temperature 96.9 F L Temperature Source Temporal Pulse Rate 49 L Respiratory Rate 16 Respiratory Pattern Normal Blood Pressure 154/70 H Blood Pressure Mean 98 Pulse Ox 97 Oxygen Delivery Method Room Air Room Air 05/01/22 11:51 05/01/22 13:11 Temperature Temperature Source Pulse Rate 47 L 46 L Respiratory Rate 18 16 Respiratory Pattern Blood Pressure 132/60 H 122/61 H Blood Pressure Mean 84 81 Pulse Ox 98 95 Oxygen Delivery Method Room Air Room Air Positive well nourished and well developed General Appearance ED: well developed and NAD HEENT Reports TM's clear and moist mucous membranes normocephalic and atraumatic; Negative for trauma or tenderness Tympanic Membrane ED: Yes TM's clear Eyes PERRL and EOMs intact bilaterally General Eye ED: Negative for pale conjunctiva or scleral icterus Neck no lymphadenopathy, supple and no JVD General: Negative for tenderness Chest Wall inspection of chest normal and palpation of chest normal Chest: Negative for tenderness Resp normal respiratory effort and clear to auscultation bilaterally Effort and Inspection: Negative for respiratory distress or pain with movement Auscultation: Negative for rhonchi, wheezes or diminished lung sounds Cardio regular rate, regular rhythm, S1 normal heart sound, S2 normal heart sound and no murmurs Rate: bradycardia Peripheral Pulses: pulses 2+ throughout GI normal to inspection, nondistended, normoactive bowel sounds, soft to palpation, non-tender, non-distended and no masses Back/Spine no CVA tenderness and no thoracic nor lumbar tenderness Extremity normal to inspection General Extremety ED: Negative for edema General Extremity: Negative for edema Neuro oriented x3, CN's II-XII intact bilaterally, no sensory deficits noted and gait normal Sensorium / Orientation: awake, alert, oriented to person, oriented to place and oriented to time Motor Exam: strength 5/5 throughout and strength abnormal Psych mental status grossly normal Skin no rashes or lesions noted and no wounds Heart Score History: Moderately Suspicious ECG: Normal Age: >/= 65 years Risk Factors: 1 or 2 Risk Factors Troponin: </= Normal Limit Score: 4 MDM MDM MDM Narrative Medical decision making narrative: Patient has an IV line established on arrival. She has allergy to aspirin and refused Plavix because she states she has multiple drug allergies and does not want to have anything unless she absolutely had to have it because of life and . Patient had normal labs with a normal initial troponin followed by a normal delta troponin at 2 hours. Patient remained pain-free in the department. Patient has a heart score of 4. We had shared decision making and discussed options for moving forward with admission and likely stress testing in 2 days as they do not offer it tomorrow. Also entertained to discharge home with close follow-up and return to the ER if any returning symptoms. Patient does not want to be admitted and would like to go home and return if her symptoms return. At this point etiology of her chest pain is unclear. Lab Data Attestation: I reviewed the patient's lab results. Labs: Laboratory Results - last 24 hr 05/01/22 05/01/22 05/01/22 10:49 10:49 13:06 WBC 6.7 RBC 5.02 Hgb 14.8 Hct 45.3 MCV 90.2 MCH 29.5 MCHC 32.7 RDW Std Deviation 48.4 H RDW Coeff of Jonn 14.6 Plt Count 207 MPV 10.0 Immature Gran % (Auto) 0.300 Neut % (Auto) 59.3 Lymph % (Auto) 24.3 [place] % (Auto) 11.7 H Eos % (Auto) 3.4 Baso % (Auto) 1.0 Absolute Neuts (auto) 4.0 Absolute Lymphs (auto) 1.62 Nucleated RBC % 0 Sodium 140 Potassium 4.2 Chloride 107 Carbon Dioxide 27.0 Anion Gap 6 BUN 28 H Creatinine 0.96 Estim Creat Clear Calc 45.56 Est GFR (MDRD) Af Amer 73 Est GFR (MDRD) Non-Af 60 BUN/Creatinine Ratio 29.2 H Glucose 139 H Calcium 9.1 Troponin I High Sens 4 5 Lipase 54 L Radiography Chest X-Ray - ED: 1 View Diagnostic Testing: Clinical Impression(s) from Imaging Studies Chest X-Ray 05/01/22 10:56 IMPRESSION: Normal x-ray examination of the chest. Electronically Signed: Jacy Carrion MD at 12:04 EDT Reading Location ID and State: [facility] / [place] , Service support , 1 view chest x-ray obtained interpreted by myself as no acute disease process. Radiology in agreement. EKG Initial EKG: Attestation: I personally reviewed and interpreted this EKG as follows: Comments: Sinus bradycardia with a ventricular rate of 49 bpm with no acute ST segment changes Prior EKG tracings: available for review Prior: Unchanged Discharge Plan Triage Chief Complaint: Chest Pain ED Provider: Sruthi Be Dx/Rx/DC Orders Clinical Impression: Chest pain Instructions: ED Chest Pain, Uncertain Cause Prescriptions: No Action escitalopram oxalate 10 MG tablet 10 mg PO DAILY Label Comments: lorazepam 1 mg tablet 0.5 mg PO TID PRN (Reason: Anxiety) Label Comments: levothyroxine [Synthroid] 50 mcg tablet 150 mcg PO DAILY Rx Instructions: Has to be 50mcg tablets. Can not take 150mcg tablet Primary Care Provider: Corinne Panda Referrals: Corinne Panda, [Primary Care Provider] - 3-5 Days Disposition Disposition: Home, Self Care
[2022-05-01 11:06] LABS: Absolute Lymphocyte Count 1.62 X10^3/uL (0.83-4.51); Basophil# 0.07 X10^3/uL; Eosinophil# 0.23 X10^3/uL; Eosinophils% 3.4 % (0-5); Hematocrit 45.3 % (37-47); Hemoglobin 14.8 g/dL (12.0-15.0); Lymphocyte # 1.62 X10^3/ul (0.83-4.51); Lymphocyte % 24.3 % (19-41); Mean Corp Hgb Conc 32.7 g/dL (32-36); Mean Corpuscular Hgb 29.5 pg (27.0-32.0); Mean Corpuscular Volume 90.2 fL (81-99); Monocyte# 0.78 X10^3/uL; Monocyte% 11.7 % (0-10); NRBC Flagged by Analyzer 0 % (0-5); Neutrophil # 3.96 X10^3/uL (2.7-7.7); Neutrophil % 59.3 % (47-70); Platelet Count 207 K/mm3 (150-450); RBC Distribution Width CV 14.6 % (11.6-14.6); RBC Distribution Width SD 48.4 fl (35.1-43.9); Red Blood Count 5.02 M/mm3 (4.2-5.4); White Blood Count 6.7 K/mm3 (4.4-11.0)
[2022-05-01 11:23] LABS: Anion Gap 6 (5-15); BUN 28 mg/dL (7-18); BUN/Creat Ratio 29.2 RATIO (10-20); Calcium,Total 9.1 mg/dL (8.5-10.1); Chloride 107 mmol/L (98-107); Creatinine, Serum 0.96 mg/dL (0.55-1.02); EST Glomerular Filtration Rate 60 mL/min (>60); Est Glom Filt Rate - Afr Amer 73 mL/min (>60); Estimated Creatinine Clearance 45.56 ml/min; Glucose 139 mg/dL (74-106); Lipase 54 U/L (73-393); Potassium 4.2 mmol/L (3.5-5.1); Sodium Level 140 mmol/L (136-145); Troponin-I HS (w/2H Reflex) 4 pg/mL (3.0-54.0)
[2022-05-01] MEDS: 0.9% Normal Saline 1,000 ML 150 ML IV (11:50)
[2022-05-01 11:51] VITALS: BP 132/60; PULSE 47; RESP 18; O2SAT 98
[2022-05-01 13:01] LABS: Reflex Troponin-HS? (from REC) Y
[2022-05-01 13:11] VITALS: BP 122/61; PULSE 46; RESP 16; O2SAT 95
[2022-05-01 13:33] LABS: Troponin-I HS 5 pg/mL (3.0-54.0)
[2022-05-01 14:10] VITALS: BP 147/68; PULSE 45; RESP 16; O2SAT 98
== END 2022-05-01 14:10 | disposition home or self-care (01) ==
PROVIDERS: Emergency Provider Emergency Medicine; Visit Provider Emergency Medicine
DX: R07.9 Chest pain, unspecified (principal); J44.9 Chronic obstructive pulmonary disease, unspecified; E11.9 Type 2 diabetes mellitus without complications; F41.9 Anxiety disorder, unspecified; F32.A Depression, unspecified; E03.9 Hypothyroidism, unspecified; E05.90 Thyrotoxicosis, unspecified without thyrotoxic crisis or storm; Z79.899 Other long term (current) drug therapy; Z87.891 Personal history of nicotine dependence
CPT/HCPCS: 71045; 80048; 83690; 84484; 85025; 93005; 96360; 96361; 99284

== ENCOUNTER → 2022-05-13 | Outpatient (CLI) | payer MEDICARE, OTHER, SELFPAY ==
[2022-05-13 15:40] LABS: Thyroid Stim Hormone (TSH) 4.09 uIU/mL (0.358-3.74)
== END | disposition home or self-care (01) ==
LOC: MTLAB 11:28
PROVIDERS: Referring Provider Specialist; Visit Provider Specialist
DX: E03.9 Hypothyroidism, unspecified (principal)
CPT/HCPCS: 36415; 84443

== ENCOUNTER → 2022-07-26 | Outpatient (CLI) | payer MEDICARE, OTHER, SELFPAY ==
[2022-07-26 18:39] LABS: Thyroid Stim Hormone (TSH) 3.06 uIU/mL (0.358-3.74)
== END | disposition home or self-care (01) ==
LOC: MTLAB 15:54
PROVIDERS: Referring Provider Specialist; Visit Provider Specialist
DX: E03.9 Hypothyroidism, unspecified (principal)
CPT/HCPCS: 36415; 84443

== ENCOUNTER 2022-10-31 12:09 | Emergency (ER) | payer OTHER, MEDICARE, SELFPAY ==
[2022-10-31 12:10] VITALS: BP 153/76; PULSE 59; RESP 18; TEMP 36.6; O2SAT 98; BMI 31.9
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
--- NOTE | 2022-10-31 12:50 | RAD_ITS ---
STUDY: X-RAY - LEFT SHOULDER REASON FOR EXAM: Female, 77 years old. PAIN TECHNIQUE: 2 view(s) of the shoulder. COMPARISON: Chest x-ray dated May 01, 2022 FINDINGS: Normal glenohumeral articulation. Normal acromioclavicular joint. Normal acromion. Normal humeral head and visualized proximal humerus. The soft tissue structures are unremarkable. Mild calcific tendinosis noted at the supraspinatus insertion site. No fracture is present. Normal visualized pulmonary apex. RAD/Shoulder min 2 Views IMPRESSION: 1. Mild calcific tendinosis noted at the supraspinatus insertion site. No fracture is present. Electronically Signed: Néstor Bartlett MD at 13:35 EST ,
--- NOTE | 2022-10-31 12:50 | RAD_ITS ---
STUDY: X-RAY - RIGHT SHOULDER REASON FOR EXAM: Female, 77 years old. pain TECHNIQUE: 2 view(s) of the shoulder. COMPARISON: Chest x-ray dated May 01, 2022 FINDINGS: Normal glenohumeral articulation. There is mild degenerative arthrosis of the acromioclavicular joint without inferior osseous spur formation. Normal acromion. Normal humeral head and visualized proximal humerus. The soft tissue structures are unremarkable. There is no demonstrated fracture. Normal visualized pulmonary apex. RAD/Shoulder min 2 Views IMPRESSION: 1. Mild right AC joint degenerative arthrosis Electronically Signed: Néstor Bartlett MD at 13:35 EST ,
== END 2022-10-31 14:54 | disposition home or self-care (01) ==
PROVIDERS: Emergency Provider Student in an Organized Health Care Education/Training Program; Visit Provider Student in an Organized Health Care Education/Training Program
DX: S40.012A Contusion of left shoulder, initial encounter (principal); J44.9 Chronic obstructive pulmonary disease, unspecified; E11.9 Type 2 diabetes mellitus without complications; Z87.891 Personal history of nicotine dependence; V49.50XA Passenger injured in collision with unspecified motor vehicles in traffic accident, initial encounter
CPT/HCPCS: 73030; 99282

== ENCOUNTER → 2023-03-04 | Outpatient (CLI) | payer MEDICARE, OTHER, SELFPAY ==
[2023-03-04 14:57] LABS: Platelet Count 161 K/mm3 (150-450)
[2023-03-04 15:11] LABS: International Normalized Ratio 0.9; Prothrombin Time (Protime)PT. 12.2 SECONDS (11.7-14.9)
[2023-03-04 15:12] LABS: Partial Thromboplast Time 27.7 Seconds (24.1-36.2)
== END | disposition home or self-care (01) ==
LOC: MTLAB 13:29
PROVIDERS: Referring Provider Internal Medicine Critical Care Medicine; Visit Provider Internal Medicine Critical Care Medicine
DX: I34.1 Nonrheumatic mitral (valve) prolapse (principal); R55 Syncope and collapse
CPT/HCPCS: 36415; 85049; 85610; 85730

== ENCOUNTER → 2023-03-16 | Outpatient (CLI) | payer MEDICARE, OTHER, SELFPAY ==
[2023-03-16] VITALS (9 sets, daily range): BP systolic 122–182; BP diastolic 53–95; PULSE 46–48; RESP 15–19; TEMP 36.1; O2SAT 93–95; BMI 32.3
--- NOTE | 2023-03-16 | IMM_PTH ---
PATIENT: [facility] LOC: CT U#:[id number] AGE/SX: 78/F ROOM: RE03/16/[address]: Dr. Linus Estrada DO : 1945 BED: DIS: 03/16/2023 SPEC #: [id number] RECD: 03/16/23 11:56 STATUS: KARTHIKEYAN REQ #: [id number] FARHANA: 03/16/23 00:[address]: Linus Estrada DEPT: IMMUNOHISTOCHEMISTRY RECD BY: Cecily Frances ENTERED: 03/16/23 11:58 SP TYPE: IMMUNO OTHR DR: Dr. Corinne Panda DO Tissues: Left upper lobe of lung, NOS Procedures: RCC (add) NAPSIN A (add) CK20 (add) CK5-6 (add) CK7 (add) CK8 (add) HEP PAR (add) PA (add) TTF1 (add) Pankeratin (add) P40 (add) ER (initial) PHYSICIAN & [address] [address] SPECIMEN INFORMATION: Tissue Source: Left upper lobe lung Clinical Info: Left upper lobe nodule Specimen Number: [id number] CPT code: 68608, 97882 x11 METHODOLOGY: Deparaffinized sections of prefer/formalin-fixed tissue or PAP/DQ stained slides are incubated with monoclonal/polyclonal antibodies/oligonucleotide probes. Localization is made via biotin free immunoperoxidase method. Appropriate controls are performed and reacted as expected. Results on target cell population are indicated in the following table: RESULTS: ANTIBODY / CLONE RESULT ER (6F11) negative PA (1E2) negative AE1-3 (AE1/AE3/PCK26) positive CK7 (OV-TL12/30) positive CK8 (17rinfB36) positive CK20 (KS20.8) negative TTF-1 (8G7G3/1) positive Napsin A (Rabbit Polyclonal) positive HepPar (OCh1E5) negative RCC (PN-15) negative CK5-6 (D5 & 1684) negative P40 (BC28) negative These tests were developed and their performance characteristics determined by [facility]. They may not have been cleared or approved by the U.[place]. Food and Drug Administration. The FDA has determined that such clearance or approval is not necessary. The above immunohistochemical/dualISH markers are ordered and reviewed by the Pathologist. INTERPRETATION: Left upper lobe lung, CT-guided core biopsy: Non-small cell carcinoma, favor adenocarcinoma, consistent with lung primary. SJ:aram 03/17/2023 Case has been reviewed in consultation with Dr. Jimenez who concurs with the above diagnosis. IDC:AM
--- NOTE | 2023-03-16 07:57 | CT_ITS ---
PROCEDURE: CT GUIDED CORE NEEDLE BIOPSY OF A left upper lobe LUNG LESION INDICATION: Female, 78 years old. Left upper lobe nodule PHYSICIAN: Dr. Miguel Angel Schultz CONSENT: Written informed consent was obtained having explained the risks, benefits and alternatives in detail with the patient who accepted the risks and agreed to proceed. Laboratory review and clinical assessment was performed. CONSCIOUS SEDATION PROTOCOL: The patient refused conscious sedation. RADIATION DOSAGE (If Supplied By Facility): CTDIvol = ( 25.5 ) mGy, DLP = ( 521.35 ) mGycm Individualized dose optimization techniques were used for this CT. TECHNIQUE: The patient was placed in the prone position. A noncontrast CT was performed to localize the lesion in the left upper lobe . The skin surface was prepped and draped in a sterile fashion. 1% lidocaine was used for local anesthesia. Using CT guidance, a 20-gauge coaxial biopsy device was advanced to the periphery of the lesion. A total of 4 core specimens were obtained. The specimens were placed in a formalin solution. A post procedure CT demonstrated no adverse sequelae or pneumothorax. The patient tolerated the procedure well without adverse event. A negative biopsy does not exclude malignancy. Further imaging or clinical followup based on patient condition and degree of clinical suspicion for malignancy. Suggest rebiopsy, if biopsy results do not match with clinical scenario. CT/Biopsy/Inj or Needle Placement IMPRESSION: 1. CT directed core needle biopsy of the left upper lobe lung nodule using CT image guidance with image documentation as described. Pathology results are pending. Electronically Signed: Jaime Michelle MD at 10:14 EDT ,
[2023-03-16] MEDS: 0.9% Saline Lock 10 ML Syringe IV ×2 (09:05→09:20)
--- NOTE | 2023-03-16 09:45 | ASPIGT_PTH ---
PATIENT: [facility] LOC: CT U#:[id number] AGE/SX: 78/F ROOM: RE03/16/[address]: Dr. Linus Estrada DO : 1945 BED: DIS: 03/16/2023 SPEC #: [id number] RECD: 03/16/23 10:04 STATUS: KARTHIKEYAN REEvgeny #: [id number] FARHANA: 03/16/23 09:[address]: Linus Estrada DEPT: SURGICAL PATHOLOGY RECD BY: Ban Landry ENTERED: 03/16/23 10:05 SP TYPE: ASP RAD OTHR DR: Dr. Corinne Panda DO Tissues: Lung, NOS Procedures: FNA Specimen Adequacy Special Stain Group II Surgery Specimen Level IV Imprint (control) HEADER OPERATION: CT-guided left lung biopsy PRE-OP DIAGNOSIS: Left upper lung nodule TISSUE SUBMITTED: Left upper lung nodule 20-gauge core x4 MICROSCOPIC DIAGNOSIS Left upper lung nodule, CT-guided core biopsy: Non-small cell carcinoma, favor adenocarcinoma, consistent with lung primary. See comment. ROBERT:aram 03/17/2023 COMMENT The specimen is evaluated at the time of biopsy by Dr. Bernal. Immediate Evaluation = Malignant cells present derived from non-small cell carcinoma. Immunohistochemistry ([id number]) supports the above diagnosis. Molecular studies on the tumor can be performed if clinically indicated. Please notify the laboratory if they are needed. Case has been reviewed in consultation with Dr. Jimenez who concurs with the above diagnosis. IDC:AM MICROSCOPIC DESCRIPTION Slides are reviewed. GROSS DESCRIPTION Received in fixative is one container labeled with the patient's name and designated left upper lung. The specimen consists of multiple irregular fragments of light ocasio soft tissue that in aggregate measure 1.0 x 0.1 x <0.1 cm. The specimen is totally submitted in one cassette. Two touch imprints are prepared at the time of core biopsy. / ROBERT:aram 03/16/2023 TC:0 CPT: 79188, [id number]
--- NOTE | 2023-03-16 09:50 | RAD_ITS ---
STUDY: X-RAY CHEST REASON FOR EXAM: Female, 78 years old. Post lung biopsy -- Immediately post lung biopsy TECHNIQUE: AP inspiration and expiration views COMPARISON: Comparison is made with prior study dated May 01, 2022. FINDINGS: Immediate post left lung biopsy radiographs were obtained. There is no evidence of pneumothorax. RAD/Chest Insp/Exp 2 View IMPRESSION: No evidence of pneumothorax on the immediate post left lung biopsy radiographs. Electronically Signed: Jaime Michelle MD at 10:16 EDT ,
--- NOTE | 2023-03-16 12:05 | RAD_ITS ---
STUDY: X-RAY CHEST REASON FOR EXAM: Female, 78 years old. 2 hr post lung biopsy -- 2 hours post lung biopsy TECHNIQUE: A PA inspiration expiration views. COMPARISON: Comparison is made with prior study done earlier today. FINDINGS: No evidence of pneumothorax on the 2 hour post left lung biopsy radiographs. RAD/Chest Insp/Exp 2 View IMPRESSION: No evidence of pneumothorax on the 2 hour delayed left lung biopsy radiographs. Electronically Signed: Jaime Michelle MD at 13:34 EDT ,
== END | disposition home or self-care (01) ==
LOC: CT 07:54
PROVIDERS: Referring Provider Internal Medicine Critical Care Medicine; Visit Provider Internal Medicine Critical Care Medicine
DX: C34.12 Malignant neoplasm of upper lobe, left bronchus or lung (principal)
CPT/HCPCS: 32408; 71046; 77012; 88172; 88305; 88313; 88341; 88342; 99156; J7050; A4216; C2613

== ENCOUNTER → 2023-04-05 | Outpatient (CLI) | payer MEDICARE, OTHER, SELFPAY ==
--- NOTE | 2023-04-05 13:26 | MRI_ITS ---
STUDY: MRI BRAIN WITHOUT CONTRAST REASON FOR EXAM: Female, 78 years old. STAGING LUNG CANCER -- Pt refusing contrast- made Dr Rubin aware he wished to proceed TECHNIQUE: Standardized multiplanar fat and water weighted pulse sequences were obtained. MRI examination brain fusion protocol including multiplanar multiecho noncontrast imaging. Contrast: No contrast administered. Patient refused IV contrast. COMPARISON: Prior studies dated: 09/12/2020 HEMISPHERES, CEREBELLUM AND BRAINSTEM: 1. The cerebral parenchyma, ventricular system, subarachnoid spaces have normal configuration and density. There is a normal gyral pattern. There is normal mckeon/white differentiation. No midline shift.. 2. Chronic microvascular deep white matter changes are present. Minimal involutional changes are present. 3. There is a area of asymmetric T2 and FLAIR signal hyperintensity in the region of the RIGHT caudate, this may represent sequelae of chronic microvascular deep white matter change, however subtle area of vasogenic edema is a consideration. There does appear to be mild edema and effacement of the anterior horn of the RIGHT lateral ventricle. 4. No evidence fluid restriction or acute acute ischemic change. No evidence of hemorrhage. 5. No areas of vasogenic edema. No mass identified. 6. No hemorrhage, or acute territorial infarct. 7. The cerebellum, brainstem, basilar and suprasellar cisterns have normal appearance. No Chiari malformation. PITUITARY: Infundibulum and pituitary have normal configuration. Midline structures appear normal. CSF SPACES: Appropriate for age. No hydrocephalus. Basal cisterns are patent. VESSELS: 1. There are normal flow voids noted in the great vessels at the skull base ORBITS AND PARANASAL SINUSES: 1. Both globes, extraocular muscles, optic nerves and retrobulbar fat appear unremarkable. 2. Paranasal sinuses are clear. BONY ELEMENTS: Bony elements of the cranial vault, facial skeleton and skull base have normal appearance. SCALP AND SOFT TISSUES: Normal appearance of the soft tissues of the scalp and the visualized face OTHER: None MRI/Brain without Contrast IMPRESSION: 1. Mild involutional changes and mild chronic microvascular deep white matter disease. 2. Asymmetric area of parenchymal edema and T2 and FLAIR signal hyperintensity involving the head of the caudate on the RIGHT. There is effacement of the anterior horn of the RIGHT lateral ventricle, and moderate edema is noted. Sequelae of vasogenic edema due to underlying metastatic deposit is a consideration. No hemorrhage noted. Consider follow-up evaluation with postcontrast imaging for further verification/clarification. 3. No evidence of acute territorial infarct. 4. No evidence of bony metastatic disease in the cranial vault, facial skeleton or skull base. Electronically Signed: Nacho Ortega MD at 19:45 EDT ,
== END | disposition home or self-care (01) ==
LOC: MRI 13:23
PROVIDERS: Referring Provider Internal Medicine Hematology & Oncology; Visit Provider Internal Medicine Hematology & Oncology
DX: C34.90 Malignant neoplasm of unspecified part of unspecified bronchus or lung (principal)
CPT/HCPCS: 70551

== ENCOUNTER → 2023-04-13 | Outpatient (CLI) | payer MEDICARE, OTHER, SELFPAY ==
--- NOTE | 2023-04-13 06:52 | CT_ITS ---
STUDY: CT BRAIN WITHOUT CONTRAST REASON FOR EXAM: Female, 78 years old. COMPARE TO 09-12-20 NO CONTRAST STAGING -- DR. NAEEM CARDENAS TO READ RADIATION DOSAGE (If Supplied By Facility): CTDIvol = ( 44.99 ) mGy, DLP = ( 812.98 ) mGycm TECHNIQUE: Transaxial CT imaging of the brain was performed without administration of intravenous contrast material. Individualized dose optimization techniques were used for this CT. COMPARISON: Comparison is made with prior study dated September 12, 2020. FINDINGS: Normal soft tissue structures. There is hyperostosis frontalis internus. There is mild cerebral atrophy with widening of the extra-axial spaces and ventricular dilatation. There are areas of decreased attenuation within the white matter tracts of the supratentorial brain, consistent with microvascular disease changes. Stable focal area of decreased attenuation in the region of the head of the caudate nucleus on the right side. Normal brainstem. Normal cerebellum. There is no intracranial hemorrhage. There are no findings of an acute ischemic infarction. Normal visualized paranasal sinuses. CT/Brain/Head without Contrast IMPRESSION: Chronic involutional changes of the brain. Stable examination. Electronically Signed: Jaime Michelle MD at 13:35 EDT ,
== END | disposition home or self-care (01) ==
LOC: CT 06:45
PROVIDERS: Referring Provider Internal Medicine Hematology & Oncology; Visit Provider Internal Medicine Hematology & Oncology
DX: C34.90 Malignant neoplasm of unspecified part of unspecified bronchus or lung (principal)
CPT/HCPCS: 70450

== ENCOUNTER → 2023-08-04 | Outpatient (CLI) | payer MEDICARE, OTHER, SELFPAY ==
[2023-08-04 14:37] LABS: Amphetamine Urine VISTA NEGATIVE (<1000 ng/mL); Barbiturate Urine VISTA NEGATIVE (< 200 ng/mL); Benzodiazepine Urine VISTA NEGATIVE (< 200 ng/mL); Cocaine Urine VISTA NEGATIVE (< 300 ng/mL); Ecstacy Urine VISTA NEGATIVE (< 500 ng/mL); Methadone Urine VISTA NEGATIVE (< 300 ng/mL); PCP Urine VISTA NEGATIVE (< 25 ng/mL); THC Urine VISTA NEGATIVE (< 50 ng/mL); Vista UDS pH Range 5
== END | disposition home or self-care (01) ==
LOC: LAB 12:39
PROVIDERS: Referring Provider Anesthesiology; Visit Provider Anesthesiology
DX: F11.20 Opioid dependence, uncomplicated (principal)
CPT/HCPCS: 80307

== ENCOUNTER → 2023-10-11 | Outpatient (CLI) | payer MEDICARE, OTHER, SELFPAY | END | disposition home or self-care (01) | LOC: SL 20:43 | PROVIDERS: Referring Provider Internal Medicine Critical Care Medicine; Visit Provider Internal Medicine Critical Care Medicine | DX: G47.33 Obstructive sleep apnea (adult) (pediatric) (principal) | CPT/HCPCS: 95810 ==

== ENCOUNTER → 2023-10-24 | Outpatient (CLI) | payer MEDICARE, OTHER, SELFPAY ==
--- NOTE | 2023-10-24 07:49 | CT_ITS ---
STUDY: CT CHEST T ABDOMEN WITHOUT CONTRAST REASON FOR EXAM: Female, 78 years old. LUNG CA S/P left upper lobectomy. RADIATION DOSAGE (If Supplied By Facility): CTDIvol = ( 18.56 ) mGy, DLP = ( 1170.68 ) mGycm TECHNIQUE: Transaxial imaging was performed without the administration of intravenous contrast material. Multiplanar coronal and sagittal images were reformatted. Individualized dose optimization techniques were used for this CT. COMPARISON: Comparison is made with prior study dated November 17, 2022. FINDINGS: CHEST Since prior examination, the patient underwent a left upper lobectomy. The previously seen nodular density in the posterior aspect of the left upper lobe has been resected. There is compensatory volume loss in the right upper hemithorax due to the prior surgery. There is no demonstrated pleural abnormality. Minimal anterior pericardial thickening. Coronary artery calcification. There are multiple small lymph nodes within the mediastinum, which are normal in size and morphology most compatible with reactive lymph hyperplasia. Normal hilar regions. Normal unenhanced pulmonary arteries. There is atherosclerotic calcification of the aortic arch. There are multi-level degenerative changes of the thoracic spine. Small hiatal hernia. ABDOMEN Normal liver. The patient is status post cholecystectomy. Normal spleen. Normal pancreas. Normal bilateral adrenal glands. There is a 1.97 m cyst in the mid anterior aspect of the right kidney. Normal left kidney. There is a small hiatal hernia. Normal small intestine. Normal colon. The appendix is visualized and appears normal. There is scattered atherosclerotic calcification of the abdominal aorta, without a demonstrated aneurysm. Normal inferior vena cava. Normal retroperitoneum. Normal abdominal wall. There are degenerative changes of the visualized lumbar spine. CT/CT Chest AND Abd W/O Contrast IMPRESSION: Status post left upper lobectomy. No acute abnormality is seen. Electronically Signed: Jaime Michelle MD at 9:36 EST ,
== END | disposition home or self-care (01) ==
LOC: CT 07:41
PROVIDERS: Referring Provider Internal Medicine Hematology & Oncology; Visit Provider Internal Medicine Hematology & Oncology
DX: C34.90 Malignant neoplasm of unspecified part of unspecified bronchus or lung (principal)
CPT/HCPCS: 71250; 74150

== ENCOUNTER → 2023-12-12 | Outpatient (CLI) | payer MEDICARE, OTHER, SELFPAY ==
[2023-12-12 17:35] LABS: Absolute Lymphocyte Count 1.75 X10^3/uL (0.83-4.51); Absolute Neutrophil Count 3.6 X10^3/uL (2.0-7.7); Basophil# 0.07 X10^3/uL; Basophil% 1.1 % (0-1); Eosinophil# 0.23 X10^3/uL; Eosinophils% 3.7 % (0-5); Hematocrit 40.6 % (37-47); Lymphocyte # 1.75 X10^3/ul (0.83-4.51); Mean Corpuscular Hgb 28.1 pg (27.0-32.0); Mean Corpuscular Volume 87.7 fL (81-99); Mean Platelet Vol. 10.8 fl (6.2-12.0); Monocyte# 0.59 X10^3/uL; Monocyte% 9.4 % (0-10); NRBC Flagged by Analyzer 0 % (0-5); Neutrophil % 57.6 % (47-70); Platelet Count 204 K/mm3 (150-450); RBC Distribution Width CV 14.8 % (11.6-14.6); RBC Distribution Width SD 47.6 fl (35.1-43.9); Red Blood Count 4.63 M/mm3 (4.2-5.4); White Blood Count 6.3 K/mm3 (4.4-11.0)
[2023-12-12 18:47] LABS: Iron 75 ug/dL (50-170); Iron Binding Capacity,Total 342 ug/dL (250-450); PERCENT IRON SATURATION 21.9 % (15.0-55.0); Thyroid Stim Hormone (TSH) 7.59 uIU/mL (0.358-3.74)
== END | disposition home or self-care (01) ==
DX: E61.1 Iron deficiency (principal); E03.9 Hypothyroidism, unspecified
CPT/HCPCS: 36415; 83540; 83550; 84443; 85025

== ENCOUNTER → 2024-01-17 | Outpatient (CLI) | payer MEDICARE, OTHER, SELFPAY ==
[2024-01-17 17:34] LABS: Absolute Lymphocyte Count 1.56 X10^3/uL (0.83-4.51); Absolute Neutrophil Count 4.2 X10^3/uL (2.0-7.7); Basophil# 0.06 X10^3/uL; Basophil% 0.9 % (0-1); Eosinophil# 0.16 X10^3/uL; Eosinophils% 2.4 % (0-5); Hematocrit 40.6 % (37-47); Lymphocyte # 1.56 X10^3/ul (0.83-4.51); Lymphocyte % 23.6 % (19-41); Mean Corpuscular Hgb 28.3 pg (27.0-32.0); Mean Corpuscular Volume 88.3 fL (81-99); Mean Platelet Vol. 11.2 fl (6.2-12.0); Monocyte% 9.1 % (0-10); NRBC Flagged by Analyzer 0 % (0-5); Neutrophil % 63.7 % (47-70); POSITIVE COUNT YES; RBC Distribution Width CV 14.7 % (11.6-14.6); RBC Distribution Width SD 47.1 fl (35.1-43.9); White Blood Count 6.6 K/mm3 (4.4-11.0)
[2024-01-17 17:57] LABS: Differential Indicated SCAN CRITERIA MET
[2024-01-17 17:58] LABS: Platelet Estimate ADEQUATE (ADEQ)
[2024-01-17 17:59] LABS: Anisocytosis RARE; Red Cell Morphology N CHROM NORMAL (NORM C&C)
[2024-01-17 18:08] LABS: ALB/GLOB Ratio 0.8 RATIO (0.9-2.4); AST(SGOT) 21 U/L (15-37); Alanine Aminotransfer ALT/SGPT 38 U/L (13-56); Albumin, Serum 3.1 g/dL (3.2-5.0); Alkaline Phosphatase 106 U/L (45-117); Anion Gap 4 (5-15); BUN 30 mg/dL (7-18); Calcium,Total 9.1 mg/dL (8.5-10.1); Chloride 110 mmol/L (98-107); Creatinine, Serum 1.07 mg/dL (0.55-1.02); EST Glomerular Filtration Rate 53 mL/min (>60); Est Glom Filt Rate - Afr Amer 64 mL/min (>60); Globulin 3.7 g/dL (2.2-4.2); Glucose 116 mg/dL (74-106); Potassium 4.2 mmol/L (3.5-5.1); Protein, Total 6.8 g/dL (6.4-8.2); Sodium Level 138 mmol/L (136-145); Thyroid Stim Hormone (TSH) 7.03 uIU/mL (0.358-3.74)
[2024-01-18 00:19] LABS: Xtra Tube EP Lab EXTRA TUBE
== END | disposition home or self-care (01) ==
LOC: MTLAB 16:11
PROVIDERS: Internal Medicine Hematology & Oncology
DX: R00.2 Palpitations (principal)
CPT/HCPCS: 36415; 80053; 84443; 85025

== ENCOUNTER → 2024-05-01 | Outpatient (CLI) | payer MEDICARE, OTHER, SELFPAY ==
--- NOTE | 2024-05-01 08:12 | CT_ITS ---
STUDY: CT CHEST T ABDOMEN WITHOUT CONTRAST REASON FOR EXAM: Female, 79 years old. F/U NSCLC S/P LULOBECTOMY RADIATION DOSAGE (If Supplied By Facility): CTDIvol = ( 18.53 ) mGy, DLP = ( 1178.09 ) mGycm TECHNIQUE: Transaxial imaging was performed without the administration of intravenous contrast material. Individualized dose optimization techniques were used for this CT. COMPARISON: 10/24/2023 FINDINGS: CHEST Mild emphysema. Status post left upper lobectomy. No noncalcified nodule or mass. There is no demonstrated pleural abnormality. There is a moderate pericardial effusion. There are no calcifications of the coronary arteries. Small hiatal hernia. Normal hilar regions. Normal unenhanced pulmonary arteries. Normal aorta arch and descending thoracic aorta. Mild dextroscoliosis thoracic spine with degenerative disc disease. Multiple healed left rib fractures. There is no demonstrated abnormality of the visualized upper abdomen. ABDOMEN The visualized lung bases are unremarkable. The visualized portions of the heart are within normal limits. Normal liver. There is non-visualization of the gallbladder, which may be secondary to either contraction or a prior cholecystectomy. Normal spleen. Normal pancreas. Normal bilateral adrenal glands. Normal right kidney. Normal left kidney. Small right renal cyst. Normal visualized stomach. Edema and small lymph nodes within the small bowel mesentery in the left upper quadrant which is unchanged suggestive of sclerosing mesenteritis. Normal colon. The appendix is visualized and appears normal. Normal abdominal aorta. Normal inferior vena cava. Normal retroperitoneum. Normal abdominal wall. Chronic mild wedge compression fracture of the L1 vertebral body without retropulsion into the spinal canal. CT/CT Chest AND Abd W/O Contrast IMPRESSION: 1. No CT evidence of residual, recurrent, or metastatic bronchogenic carcinoma. 2. Small pericardial effusion. 3. Small hiatal hernia. 4. 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 Electronically Signed: Nahco Ruvalcaba MD at 9:43 EDT ,
== END | disposition home or self-care (01) ==
LOC: CT 08:04
PROVIDERS: Referring Provider Internal Medicine Hematology & Oncology; Visit Provider Internal Medicine Hematology & Oncology
DX: C34.90 Malignant neoplasm of unspecified part of unspecified bronchus or lung (principal)
CPT/HCPCS: 71250; 74150

== ENCOUNTER → 2024-05-10 | Outpatient (CLI) | payer MEDICARE, OTHER, SELFPAY ==
--- NOTE | 2024-05-10 16:26 | MRI_ITS ---
EXAM: MR THORACIC SPINE WITHOUT INTRAVENOUS CONTRAST CLINICAL INDICATION: RADICULOPATHY, SPONDYLOSIS, HX OF VERTEBRAL FX PATIENT UNSURE OF WHAT LEVEL, HX OF LUNG CANCER TECHNIQUE: Multiplanar and multisequence MR images of the thoracic spine without intravenous contrast. COMPARISON: No relevant prior studies available. FINDINGS: VERTEBRAE: Mild disc osteophyte projection from the T11-12 and T12-L1 levels without significant impingement on the spinal canal or neural foramina. Alignment of the thoracic vertebral bodies is normal. Mild wedge compression deformity of the T12 superior segment chronic in nature. There is heterogeneous signal intensity within the vertebral bodies on T1 and T2 signal intensity but without bone marrow edema may be related to underlying osteopenia. There is preservation of the normal thoracic kyphosis. No scoliosis. DISCS/SPINAL CANAL/NEURAL FORAMINA: Normal. No spinal or neural foraminal stenosis. SPINAL CORD: Normal. Normal in signal and morphology. Normal conus medullaris. SOFT TISSUES: Paraspinal soft tissues are normal. KIDNEYS AND URETERS: Parapelvic renal cysts are noted bilaterally. No follow-up indicated. MRI/Spine Thoracic (Routine) IMPRESSION: 1. No evidence of spinal or neural foraminal stenosis. 2. Normal thoracic cord. Electronically Signed: Eddie Finney MD at 10:06 EDT ,
== END | disposition home or self-care (01) ==
LOC: CT 16:22
PROVIDERS: Referring Provider Anesthesiology; Visit Provider Anesthesiology
DX: M54.14 Radiculopathy, thoracic region (principal); M47.814 Spondylosis without myelopathy or radiculopathy, thoracic region
CPT/HCPCS: 72146

== ENCOUNTER → 2024-05-25 | Outpatient (CLI) | payer MEDICARE, OTHER, SELFPAY ==
--- NOTE | 2024-05-25 13:17 | BI_ITS ---
MAMMOGRAPHY - BILATERAL SCREENING REASON FOR EXAM: Female, 79 years old. Routine annual screening examination. PERTINENT HISTORY: Aunts with breast cancer. TECHNIQUE: Digital bilateral breast laurie (3D mammographic acquisition) in the CC and MLO projections. 2-D mediolateral oblique (MLO) and craniocaudad (CC) views of both breasts were obtained. CAD: Full Field Digital Mammography with Computer Added Detection was performed. COMPARISON: Comparison is made with prior examination dated March 12, 2014 and outside examination dated May 01, 2018. FINDINGS: Breast Composition: The breasts are almost entirely fatty. There are 2, adjacent 6.3 mm well-defined nodules in the deep upper lateral aspect of the left breast. Correlation with ultrasound is recommended. Stable small benign-appearing bilateral axillary lymph nodes. No other significant abnormalities are identified. BI/SCRN MAMM (CAD)W/LAURIE BILAT IMPRESSION: There are 2 adjacent, 6.3 mm well-defined nodules in the deep upper lateral aspect of the left breast. Correlation with ultrasound is recommended. ASSESSMENT CATEGORY: BIRADS Category 0: Incomplete. Need additional imaging evaluation. A letter regarding these results will be sent to the patient by the facility within 30 days. Approximately 10% of breast cancers are not detected by mammography. A normal mammogram should not delay biopsy of a clinically suspicious abnormality. [id number] Electronically Signed: Jaime Michelle MD at 14:50 EDT ,
== END | disposition home or self-care (01) ==
LOC: OPBI 13:16
PROVIDERS: Referring Provider Internal Medicine Hematology & Oncology; Visit Provider Internal Medicine Hematology & Oncology
DX: Z12.31 Encounter for screening mammogram for malignant neoplasm of breast (principal)
CPT/HCPCS: 77063; 77067

== ENCOUNTER → 2024-05-30 | Outpatient (CLI) | payer MEDICARE, OTHER, SELFPAY ==
--- NOTE | 2024-05-30 10:59 | US_ITS ---
STUDY: ULTRASOUND BREAST - LEFT REASON FOR EXAM: Female, 79 years old. Abnormal screening mammogram. TECHNIQUE: Axial and longitudinal images of the LEFT breast were performed with a high resolution ultrasound transducer. # OF IMAGES: 13 COMPARISON: Comparison is made with prior mammogram dated May 25, 2024. FINDINGS: LEFT Breast: The lateral aspect of the left breast was examined. The mammographic abnormality corresponds to a 1 cm x 0.9 cm x 0.3 cm cyst. Adjacent to this, there is a 5 mm x 7 mm x 3 mm cyst at the 3:00 position breast 5 cm from the nipple. US/Breast Limited Unilateral IMPRESSION: The mammographic findings correspond to 2, adjacent cysts. Routine mammographic follow-up recommended. ASSESSMENT CATEGORY: BIRADS Category 2: Benign. A letter regarding these results will be sent to the patient by the facility within 30 days. Electronically Signed: Jaime Michelle MD at 15:47 EDT ,
== END | disposition home or self-care (01) ==
LOC: OPUS 10:57
PROVIDERS: Visit Provider Internal Medicine Hematology & Oncology
DX: N63.21 Unspecified lump in the left breast, upper outer quadrant (principal)
CPT/HCPCS: 76642

== ENCOUNTER 2024-07-27 12:30 | Outpatient (RCR) | payer MEDICARE, OTHER, SELFPAY | END 2024-07-27 19:00 | disposition home or self-care (01) | LOC: PT 12:30 | PROVIDERS: Referring Provider Anesthesiology; Visit Provider Anesthesiology | DX: M54.6 Pain in thoracic spine (principal); M43.04 Spondylolysis, thoracic region | CPT/HCPCS: 97110; 97140; 97162; 97530 ==

== ENCOUNTER → 2024-08-28 | Outpatient (CLI) | payer MEDICARE, OTHER, SELFPAY ==
--- NOTE | 2024-08-28 10:57 | ECHOD_ITS ---
Reason For Study: MITRAL VALVE PROLAPSE Procedure This was a 2D Doppler, Color Flow transthoracic echocardiogram. Myocardial strain analysis was performed in this exam to aid in the assessment of cardiac function. Exam performed in department. Left Ventricle Normal LV size. Left ventricular systolic function is normal. The left ventricular ejection fraction is 60 %. No regional wall motion abnormalities noted. Right Ventricle Normal RV size. Normal systolic function. Atria Normal left atrium. Normal right atrium. Mitral Valve Normal mitral valve. Tricuspid Valve Normal tricuspid valve. Aortic Valve Trisinus/trileaflet aortic valve. Pulmonic Valve Normal pulmonic valve. Great Vessels Normal aortic root. The pulmonary artery is normal size. Inferior vena cava collapse with respiration. Pericardium/Pleural Trivial pericardial effusion. MMode/2D Measurements & Calculations LVIDd: 5.4 cm IVSd: 1.0 cm LVOT diam: 1.8 cm LVIDs: 3.0 cm LVPWd: 1.0 cm LVOT area: 2.4 cm2 RVDd: 3.5 cm FS: 44.4 % asc Aorta Diam: 3.2 cm LAV(MOD-bp): 44.1 ml LVAd ap4: 18.6 cm2 LAV(MOD-bp) Indexed: 23.6 ml/m2 LVLd ap4: 6.6 cm LAV(MOD-sp2): 44.8 ml EDV(MOD-sp4): 42.8 ml LAV(MOD-sp4): 42.4 ml EDV(sp4-el): 44.6 ml LVAs ap4: 10.4 cm2 LVLs ap4: 5.3 cm ESV(MOD-sp4): 16.9 ml ESV(sp4-el): 17.1 ml EF(MOD-sp4): 60.5 % EF(sp4-el): 61.7 % LVAd ap2: 17.5 cm2 SV(MOD-sp4): 25.9 ml SV(MOD-sp2): 22.4 ml LVLd ap2: 6.9 cm SI(MOD-sp4): 13.9 ml/m2 SI(MOD-sp2): 12.0 ml/m2 EDV(MOD-sp2): 35.9 ml EDV(sp2-el): 37.4 ml LVAs ap2: 9.4 cm2 LVLs ap2: 5.7 cm ESV(MOD-sp2): 13.5 ml ESV(sp2-el): 13.3 ml EF(MOD-sp2): 62.5 % SV(sp4-el): 27.5 ml Ao sinus diam: 2.[address] Junction: 2.5 cm LA dimension(2D): 4.2 cm LA A4 area: 16.3 cm2 RA A4 area: 9.3 cm2 TAPSE: 1.7 cm Time Measurements MV dec time: 0.23 sec Doppler Measurements & Calculations MV E max tariq: 73.7 cm/sec Lat Peak E' Tariq: 3.7 cm/sec Med Peak E' Tariq: 3.6 cm/sec MV A max tariq: 97.4 cm/sec E/E' lat: 19.9 E/E' med: 20.5 MV E/A: 0.76 MV dec slope: 314.5 cm/sec2 Ao V2 max: 170.8 cm/sec LV V1 max: 126.5 cm/sec Ao max P.7 mmHg LV V1 max P.4 mmHg Ao V2 mean: 125.9 cm/sec LV V1 mean P.5 mmHg Ao mean P.8 mmHg LV V1 mean: 86.6 cm/sec Ao V2 VTI: 38.3 cm LV V1 VTI: 30.7 cm AV (velocity ratio): 0.80 BRAYDEN(I,D): 1.9 cm2 BRAYDEN(V,D): 1.8 cm2 SV(LVOT): 73.8 ml PA V2 max: 102.2 cm/sec TR max tariq: 264.3 cm/sec TR max P.9 mmHg ECHO/Echo Complete Interpretation Summary Normal LV size. Left ventricular systolic function is normal. The left ventricular ejection fraction is 60 %. The global longitudinal strain is normal. The global longitudinal strain = -19. 5 % (normal). Structurally normal valves. Ordering Physician: Andrew Fritz Referring Physician: Andrew Fritz MD Performed By: Balbina Carlos FRANCISCO
[2024-08-28 12:57] LABS: T4 Free Direct 0.87 ng/dL (0.76-1.46)
== END | disposition home or self-care (01) ==
LOC: CVS 10:56
PROVIDERS: Internal Medicine Endocrinology, Diabetes & Metabolism; Referring Provider Internal Medicine Cardiovascular Disease; Visit Provider Internal Medicine Cardiovascular Disease
DX: I34.1 Nonrheumatic mitral (valve) prolapse (principal); E03.9 Hypothyroidism, unspecified
CPT/HCPCS: 36415; 84439; 84443; 93306

== ENCOUNTER → 2024-10-18 | Outpatient (CLI) | payer MEDICARE, OTHER, SELFPAY ==
[2024-10-18 17:57] LABS: Free T3 1.4 pg/mL (2.18-3.98)
== END | disposition home or self-care (01) ==
LOC: MTLAB 16:01
PROVIDERS: Referring Provider Specialist; Visit Provider Specialist
DX: E03.9 Hypothyroidism, unspecified (principal)
CPT/HCPCS: 36415; 84439; 84443; 84481

== ENCOUNTER → 2024-11-05 | Outpatient (CLI) | payer MEDICARE, OTHER, SELFPAY ==
--- NOTE | 2024-11-05 13:03 | CT_ITS ---
EXAM: CT Chest And Abdomen W/O Contrast Injection HISTORY: NSCLC S/P LOBECTOMY LEFT SIDE, INCREASE IN COUGHING, DB TECHNIQUE: Routine protocol CT chest and abdomen without IV contrast. IV Contrast: None.. Oral contrast: None. RADIATION DOSAGE (If Supplied By Facility): CTDIvol = ( 9.91 ) mGy, DLP = ( 634.05 ) mGycm Individualized dose optimization techniques were used for this CT. COMPARISON: CT chest and abdomen 05/01/2024. LIMITATIONS: None. FINDINGS: ---CHEST LUNGS: Emphysematous changes. Surgical clips in the left upper lobe and left hilar region, with associated reticular opacities postsurgical changes, not significantly changed. No consolidation. 3 mm nodule right lower lobe is not significantly changed. LARGE AIRWAYS: Unremarkable. PLEURA: No pleural effusion. No pneumothorax. MEDIASTINUM: Unremarkable. HEART: Not enlarged. Small pericardial effusion not significantly changed. CORONARY ARTERIES: Coronary artery calcifications are not seen. AORTA/VESSELS: No aortic aneurysm. ESOPHAGUS: Unremarkable. Small hiatal hernia. BONES/SOFT TISSUES: No acute abnormality. Postsurgical changes left ribs. Sclerotic focus right ninth rib laterally, unchanged, may be an old healed fracture or bone island. OTHER/LINES: None. ---ABDOMEN LIVER: Grossly unremarkable. GALLBLADDER AND BILIARY TREE: Gallbladder not identified presumed surgically absent. PANCREAS: Grossly unremarkable. SPLEEN: Grossly unremarkable. ADRENAL GLANDS: Grossly unremarkable. KIDNEYS AND URETERS: No calculi demonstrated. No hydronephrosis. Small cysts in both kidneys, no follow-up needed PERITONEUM: No free air. No free fluid. BOWEL: No bowel obstruction. Focal stranding in the mesentery centrally in the mid/left abdomen with prominent mesenteric lymph nodes, unchanged. VESSELS: Abdominal aorta is normal caliber. ABDOMINAL WALL: Unremarkable. BONES: No acute abnormalities. Degenerative changes lumbar spine and minimal anterolisthesis at L4-5. Mild compression abnormality T12 is unchanged. CT/CT Chest AND Abd W/O Contrast IMPRESSION: 1. Postsurgical changes left upper lobectomy, stable. 2. 3 mm nodule right lower lobe, stable. Continued CT follow-up recommended in one year. 3. Emphysematous changes. The presence of pulmonary emphysema on CT scan is an independent risk factor for lung cancer. Consider low dose lung cancer screening in the future, as clinically indicated. 4. No consolidation or evidence of acute inflammatory process. 5. Small pericardial effusion, unchanged. 6. Small hiatal hernia. 7. Focal mesenteric stranding unchanged compared to prior. 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 Electronically Signed: Leslie Lake MD at 23:35 EST ,
== END | disposition home or self-care (01) ==
LOC: CT 13:03
PROVIDERS: Referring Provider Internal Medicine Hematology & Oncology; Visit Provider Internal Medicine Hematology & Oncology
DX: C34.92 Malignant neoplasm of unspecified part of left bronchus or lung (principal)
CPT/HCPCS: 71250; 74150

== ENCOUNTER → 2025-05-22 | Outpatient (CLI) | payer MEDICARE, OTHER, SELFPAY ==
--- NOTE | 2025-05-22 13:22 | CT_ITS ---
PROCEDURE: CT CHEST AND ABD W/O CONTRAST REASON FOR EXAM: F/U NSCLC S/P LULOBECTOMY TECHNIQUE: Chest and abdomen CT without intravenous contrast. Coronal and Sagittal reconstruction series were provided. One or more dose reduction techniques were used (e.g., Automated exposure control, adjustment of the mA and/or kV according to patient size, use of iterative reconstruction technique PATIENT PREPARATION: Per protocol ORAL CONTRAST TYPE: None. COMPARISON: Prior examination dated November 05, 2024. RADIATION DOSE SUMMARY: CTDlvol: 16.5 mGy DLP: 1544.66 mGycm FINDINGS: CT CHEST: Hardware: None Lymph nodes: No significant lymphadenopathy is seen. Heart and Vasculature: The heart is nonenlarged. Small pericardial effusion. Thoracic aorta and pulmonary arteries are unremarkable. Coronary Artery Calcifications: Present Lungs and Airways: Status post left upper lobectomy with volume loss in the left hemithorax. Postoperative scarring seen in the anterior aspect of the left hemithorax. Hyperexpansion of the right lung. This is a normal compensatory mechanism. Pleura: No pleural effusion. CT ABDOMEN: Noncontrast technique limits evaluation of the abdominal viscera. Liver: Normal size. No mass. Gallbladder: Surgically absent. Spleen: Normal size. Pancreas: Diffuse fatty atrophy. Adrenals: Unremarkable Kidneys: Stable bilateral parapelvic renal cysts Bowel: Sigmoid diverticulosis. Hiatal hernia. Lymph nodes: Unremarkable. Vasculature: Mild diffuse atherosclerotic calcifications are noted. Peritoneum / Retroperitoneum: Unremarkable Bones: Stable loss of height of the superior endplate of the T12 vertebrae. CT/CT Chest AND Abd W/O Contrast IMPRESSION: Coronary artery calcification (CAC) is is present Stable examination. Reading Location: [place] [id number]
--- OUTSIDE RECORDS SUMMARY | 2025-05-22 20:00 | XMS RPT_ITS | CCD ---
Author Organization [facility] CliniSywa Care Team Providers Care Mortar Man Name Role Phone Corinne Panda DO Primary Care Provider [phone] DR CORINNE PANDA DO Primary Care Physician ([facility] )[phone] Chelle PT, Oleg Unavailable Unavailable Dai Dillard Primary Care Provider Joe Smith MD Primary Care Provider DR CORINNE PANDA DO Primary Care Physician ([facility] )[phone] Joe Smith MD Primary Care Provider Dr. Corinne Panda Primary Care Provider [phone] Dr. Corinne Panda Referring Provider Katherine, Dr. Hamilton Attending Provider Corinne Panda DO Primary Care Provider 1([facility])[phone] Blanca Alva RN Unavailable Unavailable Dr. Corinne Panda Primary Care Provider [phone] Dr. Corinne Panda Referring Provider Dr. Linus Estrada Attending Provider [phone] Xenia COTTON EXPERT, COTTON EXPERT-C Katelynn Attending Provider [phone] Dr. Emil Whittington Attending Provider Corinne Panda DO Primary Care Provider Marylu Greenfield CNP Unavailable GABBY THOMASON Attending Unavailable CORINNE PANDA Primary Care Unavailable GABBY THOMASON Attending Unavailable GABBY THOMASON Referring Unavailable CORINNE PANDA Primary Care Unavailable JENNIFER JOHNSON Attending Unavailable CORINNE PANDA Primary Care Unavailable JOSÉ MIGUEL REIS Attending Unavailable CORINNE PANDA Primary Care Unavailable AZIKEN, GABBY Attending Unavailable CORINNE PANDA Primary Care Unavailable AZIKEN, GABBY Attending Unavailable CORINNE PANDA Primary Care Unavailable JOSÉ MIGUEL REIS Attending Unavailable CORINNE PANDA Primary Care Unavailable JENNIFER JOHNSON Attending Unavailable AZIKEN, GABBY Referring Unavailable CORINNE PANDA Primary Care Unavailable JOSÉ MIGUEL REIS Admitting Unavailable JOSÉ MIGUEL REIS Attending Unavailable SINDY, CORINNE Primary Care Unavailable SINDY, CORINNE M Primary Care Unavailable TALAMPAS, JOE Sukhi Primary Care Unavailable CASTRO, DOROTHY Referring Unavailable ERA SMALL Attending Unavailable TALAMPLINDA, JOE D Primary Care Unavailable CASTROFADIAI Attending Unavailable DAI DILLARD Primary Care Unavailable SINDY, CORINNE Drummond Primary Care Unavailable APRIL VELASQUEZ Referring Unavailable CINTHYA, WARREN Referring Unavailable CORINNE PANDA Primary Care Unavailable WARREN MENDES Referring Unavailable CORINNE PANDA Primary Care Unavailable DAE BRADSHAW Referring Unavailable SINDYCORINNE M Primary Care Unavailable CINTHYA, WARREN Referring Unavailable CORINNE PANDA Primary Care Unavailable Sindy DO, oCrinne Drummond Primary Care Provider MARYLU ARMENDARIZ Attending Unavailab le SINDY , DR DEJESUS Primary Care Unavailable ANGELA FINCH, DR CORTEZ Attending Unavailabl e SINDY DO, DR DEJESUS Primary Care Unavailable SAMIR WALKER MD Attending Unavailable SINDY DO, DR DEJESUS Primary Care Unavailable MARYLU ARMENDARIZ Attending Unavailab le SINDY DO, DR DEJESUS Primary Care Unavailable REFERRING, EMILY DOMINGUEZ Attending Unavailable SINDY DO, DR DEJESUS Primary Care Unavailable MECCA FICNH, DR RODRIGUEZ Attending Unavaila ble SINDY DO, DR DEJESUS Primary Care Unavailable MECCA FINCH, DR PELAYO Attending Unavaila ble SINDY DO, DR DEJESUS Primary Care Unavailable CORINNE PANDA Primary Care Unavailable SHADE RILEY Attending Unavailable JOSE LUGO Referring Unavailable SINDYCORINNE Primary Care Unavailable XOCHILT KLEIN Referring Unavailable DAE BRADSHAW Attending Unavailable SINDY, CORINNE M Primary Care Unavailable XOCHILT KLEIN Attending Unavailable SINDY, CORINNE M Primary Care Unavailable DAE BRADSHAW Referring Unavailable SINDY, CORINNE M Primary Care Unavailable SINDY, CORINNE M Referring Unavailable SINDY, CORINNE M Primary Care Unavailable APRIL VELASQUEZ Attending Unavailable SINDY, CORINNE M Referring Unavailable LAHORRA, SHADE Becerra Attending Unavailable SINDY, CORINNE M Primary Care Unavailable SINDY, CORINNE M Primary Care Unavailable JESSY ROY Attending Unavailable SHADE RILEY Admitting Unavailable LAHORRA, SHADE Becerra Attending Unavailable LAHORRASHADE Referring Unavailable SINDY, CORINNE M Primary Care Unavailable CHARY PORTILLO Consulting Unavailable Corinne Panda DO Primary Care Provider [phone] Corinne Panda Primary Care Unavailable Sindy, Corinne Michael Referring Unavailable Andrew Fritz Attending Unavailable Tommy Givens Attending Unavailable Sindy, Corinne Michael Primary Care Unavailable Sindy, Corinne Michael Referring Unavailable Sindy, Corinne Michael Primary Care Unavailable Emil Whittington Attending Unavailable Sindy, Corinne Longe Referring Unavailable Sindy, Corinnenguyen Michael Primary Care Unavailable Flakito Malik Attending Unavailable Sindy, Corinne Michael Primary Care Unavailable IsckarusEmil Attending Unavailable Sindy, Corinne Michael Referring Unavailable Sindy, Corinne Michael Primary Care Unavailable Flakito Malik Attending Unavailable Sindy, Corinne Michael Primary Care Unavailable IsckarusEmil Attending Unavailable Sindy, Corinne Michael Referring Unavailable Sindy, Corinnenguyen Michael Primary Care Unavailable Flakito Malki Attending Unavailable Katelynn Michaels NP Attending Unavailable Sindy, Corinne Michael Primary Care Unavailable Sindy, Corinne Michael Referring Unavailable Sindy, Corinne Michael Referring Unavailable Shiraz Wheatley NP Attending Unavailable Sindy, Corinne Michael Primary Care Unavailable Sindy, Corinnenguyen Michael Primary Care Unavailable Andrew Fritz Attending Unavailable Sindy, Corinnenguyen Michael Primary Care Unavailable Jeffery COTTON EXPERTObdulia Attending Unavailable Sindy, Corinne Michael Primary Care Unavailable Isckarus, Emil Attending Unavailable Johanakar, Corinaour Referring Unavailable Charly Bruno Referring Unavailable Charly Bruno Attending Unavailable Corinne Panda Primary Care Unavailable Corinne Panda Primary Care Unavailable Lindseyus, Mansour Attending Unavailable Pk, Mansour Referring Unavailable SindyCorinne Primary Care Unavailable Isckarus, Mansour Attending Unavailable Tommy Givens Unavailable Sindy, Corinne Michael Primary Care Unavailable Catrina, [place] Referring Unavailable Catrina, Andrew Attending Unavailable Corinne Panda Primary Care Unavailable Isckarus, Mansour Referring Unavailable Johanakarus, Mansour Attending Unavailable Jennifer Love Referring Unavailable Jennifer Love Attending Unavailable Sindy, Corinne Michael Primary Care Unavailable Allergies Allergy Classification Reported Allergen(s) Allergy Type Date of Onset Reaction(s) Facility (20 sources) Acetaminophen; Translations: [acetaminophen] Drug Allergy 01-24-20 Rash [facility] (20 sources) Aluminum aspirin; Translations: [ASPIRIN] Drug Allergy 01-24-20 Shortness of breath [facility] (20 sources) Cephalexin; Translations: [CEPHALEXIN] Drug Allergy 07-27-20 Unknown [facility] (20 sources) Codeine; Translations: [codeine] Drug Allergy 07-27-20 Unknown (qualifier value), Unknown [facility] (20 sources) cow milk allergenic extract Drug Allergy 01-24-20 [facility] (20 sources) diphenhydrAMINE; Translations: [DIPHENHYDRAMINE] Drug Allergy 07-27-20 Hives [facility] (20 sources) Doxycycline; Translations: [DOXYCYCLINE] Drug Allergy 07-27-20 Unknown [facility] (1 source) egg white (chicken) allergenic extract Drug Allergy 09-15-20 [facility] (20 sources) Ibuprofen; Translations: [ibuprofen] Drug Allergy 07-27-20 Unknown [facility] (20 sources) Latex; Translations: [LATEX] Propensity to adverse reactions to drug 01-24-20 [facility] (20 sources) Lidocaine; Translations: [LIDOCAINE] Drug Allergy 07-27-20 Unknown, Swelling, Itching [facility] (20 sources) Meperidine; Translations: [meperidine] Drug Allergy 07-27-20 Unknown [facility] (6 sources) Penicillins; Translations: [PENICILLINS] Propensity to adverse reactions to drug 10-18-20 18 Unknown [facility] (20 sources) Povidone-Iodine; Translations: [Povidone-Iodine] Drug Allergy 01-24-20 07 [facility] (1 source) Starch Drug Allergy 01-24-20 07 [facility] (20 sources) Alcohol; Translations: [ALCOHOL] Propensity to adverse reactions to drug 01-24-20 07 [facility] (20 sources) Erythromycin Base; Translations: [ERYTHROMYCIN BASE] Propensity to adverse reactions to drug 07-27-20 18 Unknown [facility] (20 sources) Prochlorperazine Edisylate; Translations: [PROCHLORPERAZINE EDISYLATE] Propensity to adverse reactions to drug 09-15-20 18 Anaphylaxis [facility] (20 sources) Aspirin; Translations: [aspirin] Drug Allergy 01-24-20 07 Shortness of Breath [facility] (12 sources) Egg Food allergy [facility] (12 sources) Erythromycin; Translations: [erythromycin] Drug Allergy Unknown (qualifier value) [facility] (20 sources) HYDROmorphone; Translations: [hydromorphone] Drug Allergy 08-20-20 Unknown [facility] (12 sources) Isopropyl Alcohol; Translations: [isopropyl alcohol topical] Drug Allergy [facility] (20 sources) Ketorolac; Translations: [ketorolac] Drug Allergy 08-20-20 Unknown, Shortness of Breath [facility] (20 sources) Morphine; Translations: [morphine] Drug Allergy 08-20-20 Unknown [facility] (20 sources) Naproxen; Translations: [naproxen] Drug Allergy 08-20-20 Unknown [facility] (20 sources) Ondansetron; Translations: [ondansetron] Drug Allergy 08-20-20 22 Unknown [facility] (12 sources) Penicillin; Translations: [penicillin] Drug Allergy Unknown (qualifier value) [facility] (20 sources) Prochlorperazine; Translations: [prochlorperazine] Drug Allergy 07-27-20 18 Anaphylaxis [facility] (12 sources) Promethazine; Translations: [promethazine] Drug Allergy [facility] (12 sources) Sulfonamides (Antibiotic); Translations: [sulfa drugs] Drug allergy Unknown (qualifier value) [facility] (12 sources) chicken Food allergy [facility] (20 sources) egg extract; Translations: [EGG] Drug Allergy 09-15-20 18 Unknown [facility] (20 sources) Non-steroidal anti-inflammatory agent; Translations: [NSAIDS (NON-STEROIDAL ANTI-INFLAMMATORY DRUG)] Drug Allergy 07-27-20 18 Anaphylaxis, Rash [facility] (20 sources) all antibiotics [Other] Propensity to adverse reactions 01-24-20 Other: See Comments [facility] Work Phone: (20 sources) all pain meds [Other] Propensity to adverse reactions 01-24-20 07 [facility] Work Phone: [phone] (20 sources) ct scan dye [Other] Propensity to adverse reactions 01-24-20 Anaphylaxis [facility] Work Phone: (20 sources) Soap; Translations: [SOAP] Propensity to adverse reactions 01-24-20 [facility] Work Phone: (20 sources) vegetables [Other] Propensity to adverse reactions 01-24-20 Unknown [facility] Work Phone: (20 sources) Wheat Starch; Translations: [WHEAT STARCH] Propensity to adverse reactions 01-24-20 07 [facility] Work Phone: (20 sources) Cephalosporins (Antibiotic); Translations: [Cephalosporins] Propensity to adverse reactions 07-27-20 18 Unknown [facility] (20 sources) diphenhydrAMINE Drug Allergy 07-27-20 18 Hives [facility] Work Phone: (20 sources) Iodinated Contrast Media; Translations: [Iodinated Contrast Media] Allergy to substance 02-15-20 Anaphylaxis [facility] (8 sources) NSAIDS (Non-Steroidal Anti-Inflamma; Translations: [NSAIDS (Non-Steroidal Anti-Inflamma] Allergy to substance 02-15-20 Rash [facility] (8 sources) ANTIBIOTICS; Translations: [ANTIBIOTICS] Allergy to substance 02-15-20 Anaphylaxis; SOB [facility] (8 sources) PAIN MEDICATIONS; Translations: [PAIN MEDICATIONS] Allergy to substance 02-15-20 [facility] (20 sources) Non-steroidal anti-inflammatory agent Drug Allergy 09-15-20 18 Anaphylaxis [facility] (4 sources) Penicillins Propensity to adverse reactions 06-23-20 Unknown [facility] (20 sources) Albuterol; Translations: [ALBUTEROL] Drug Allergy 08-20-20 Other: See Comments [facility] Work Phone: [phone] (20 sources) Penicillins Drug Allergy 07-27-20 18 Unknown [facility] Work Phone: [phone] (20 sources) Sulfonamides (Antibiotic); Translations: [SULFA (SULFONAMIDE ANTIBIOTICS)] Drug Allergy 08-20-20 22 Unknown [facility] Work Phone: [phone] (20 sources) Acetaminophen Drug Allergy 01-24-20 07 Rash [facility] (20 sources) EPINEPHrine Drug Allergy 03-30-20 23 Unknown [facility] (20 sources) Penicillins Drug Intolerance 07-27-20 18 [facility] (20 sources) traMADol; Translations: [TRAMADOL] Drug Allergy 06-01-20 23 Shortness of Breath [facility] (7 sources) Propofol; Translations: [propofol] Drug Allergy 12-12-19 24 Other: See Comments [facility] (2 sources) Milk; Translations: [MILK] Propensity to adverse reactions to food (disorder) 01-24-20 [facility] (2 sources) OTHER; Translations: [OTHER] Propensity to adverse reactions (disorder) 01-24-20 [facility] (1 source) Acetaminophen Drug Allergy 02-12-20 [facility] (1 source) Aspirin Drug Allergy 02-12-20 [facility] (1 source) Cephalexin Drug Allergy 02-12-20 [facility] (1 source) Codeine Drug Allergy 02-12-20 [facility] (1 source) diphenhydrAMINE Drug Allergy 02-12-20 [facility] (1 source) Doxycycline Drug Allergy 02-12-20 [facility] (1 source) egg extract Drug Allergy 02-12-20 [facility] (1 source) HYDROmorphone Drug Allergy 08-08-20 [facility] (1 source) Ibuprofen Drug Allergy 02-12-20 [facility] (1 source) Isopropyl Alcohol Drug Allergy 08-08-20 [facility] (1 source) Ketorolac Drug Allergy 02-12-20 [facility] (1 source) Lidocaine Drug Allergy 02-12-20 [facility] (1 source) Meperidine Drug Allergy 02-12-20 [facility] (1 source) Morphine Drug Allergy 02-12-20 [facility] (1 source) Ondansetron Drug Allergy 02-12-20 [facility] (1 source) Penicillins Drug allergy (disorder) 02-12-20 [facility] (1 source) Prochlorperazine Drug Allergy 02-12-20 [facility] (1 source) Promethazine Drug Allergy 02-12-20 [facility] (1 source) Propofol Drug Allergy 02-12-20 [facility] (1 source) Sulfonamides (Antibiotic) Drug allergy (disorder) 02-12-20 [facility] (1 source) chicken derived Drug allergy (disorder) 02-12-20 [facility] Medications Current Medications Medication Drug Class(es) Dates Sig (Normalized) Sig (Original) dexamethasone 0.001 mg/mg / neomycin 0.0035 mg/mg / polymyxin b 10 unt/mg ophthalmic ointment (10 sources) Aminoglycoside Antibacterial, Polymyxin-class Antibacterial, Corticosteroid Start: 03-30-2021 neomycin-polymyx in-dexameth [id number] OINT NEOMYCIN-POLYMYX IN-DEXAMETH 3.5 MG/ML-10,000 UNIT/ML-0.1% EYE DROPS Use 1 application in both eyes as directed. 0 Active Comment on above: Use 1 application in both eyes as directed. dexamethasone/neomycin/ polymyxin B 1 mg-3.5 mg-10,000 units/g ophthalmic ointment (2 sources) Start: 2019 apply 1 dose into the eye(s) three times daily as needed dexamethasone/neomyci n/polymyxin B 1 mg-3.5 mg-10,000 units/g ophthalmic ointment Dose = 1 saranya, Ophthalmic, TID, as needed for eyelid psoriasis, # 3.5 gram(s), 0 Refill(s), Pharmacy: [facility]/pharmacy #[id number], 166.5, cm, 02/23/20 7:59:00 EDT, Height, kg, 02/23/20 7:59:00 EDT, Dosing Weight Start Date: 02/23/20 Status: Ordered dextromethorphan hydrobromide 2 mg/ml / guaiFENesin 40 mg/ml oral suspension (1 source) Uncompetitive R-abndpa-Q-aspartate Receptor Antagonist, Sigma-1 Agonist Start: 2021 take 1 mL by mouth every eight hours Dextromethorphan-Guai fenesin Active 7.5 ML PO Q8H 118 February 14, 2022 4:24pm diphenhydrAMINE (18 sources) Histamine-1 Receptor Antagonist diphenhydrAMINE HCl (ALLERGY MED PO) Take by mouth. 0 Active gabapentin 100 mg oral capsule (1 source) Anti-epileptic Agent Start: 2023 take 1 capsule by mouth three times daily gabapentin (NEURONTIN) 100 mg capsule Take 1 capsule by mouth three times a day for 30 days. 90 capsule 0 10/18/2023 Active lansoprazole 3 mg/mL oral suspension (2 sources) Start: 2021 take 1 dose by mouth once daily lansoprazole 3 mg/mL oral suspension Dose : 15 mg = 5 mL, Oral, qDay, please do not add any flavoring, # 150 mL, 0 Refill(s), Pharmacy: [facility], 164.7, cm, 07/20/21 11:33:00 EDT, Height, kg, 12/03/21 7:33:00 EST, Dosing Weight Start Date: 12/03/21 Status: Ordered levothyroxine sodium 0.05 mg oral tablet (20 sources) l-Thyroxine Start: 2022 take 3 tablets by mouth once daily, then take 2 tablets by mouth at breakfast levothyroxine (SYNTHROID) 50 mcg tablet Take 3 tablets by mouth once daily. Two tablet at breakfast, pt only takes synthroid not levothyroxine 0 08/02/2023 Active Start: 02-24-2021 Levothyroxine (Synthroid) 50 mcg tablet Active 100 MCG PO DAILY February 24, 2021 12:00am Has to be 50mcg tablets. Can not take 150mcg tablet Start: 11-14-2019 levothyroxine 150 mcg (0.15 mg) oral tablet Dose : 150 mcg = 1 tab(s), Oral, qDay, # 30 tab(s), 0 Refill(s) Start Date: 11/14/19 Status: Ordered Start: 09-15-2018 End: 08-20-2022 take 3 tablets by mouth once daily for thyroid dysfunction levothyroxine (LEVOXYL) 50 mcg tablet Indications: Hypothyroidism, unspecified type Take 3 tablets by mouth once daily. Take on empty stomach. For Thyroid. 30 tablet 0 09/15/2018 Active Start: 12-02-2016 End: 07-27-2018 take 100 ug by mouth once daily Levothyroxine Disconti nued 100 MCG PO DAILY December 02, 2016 1:00am July 27, 2018 9:58am End: 08-02-2023 take 2 tablets by mouth at breakfast levothyroxine (SYNTHROID) 50 mcg tablet Take 50 mcg by mouth. Two tablet at breakfast, pt only takes synthroid not levothyroxine 0 08/02/2023 Discontinued (Adjust Sig - Block E-Cancel) Comment on above: Take 3 tablets by mo uth once daily. Take on empty stomach. For Thyroid. Take 50 mcg by mouth . Three tablet at breakfast Take 50 mcg by mouth . Two tablet at breakfast Take 50 mcg by mouth . Two tablet at breakfast, pt only takes synthroid not levothyroxine Take 3 tablets by mo uth once daily. Two tablet at breakfast, pt only takes synthroid not levothyroxine 1 ml LORazepam 2 mg/ml injection (20 sources) Benzodiazepine Start: 04-28-2023 LORazepam (Ativan) 2 MG/ML injection - Pyxis ADS Override Pull Start: 04-28-2023 LORazepam (Ati van) injection 0.5 mg Start: 07-27-2018 take 0.5 mg by mouth three times daily Lorazepam Active 0.5 MG PO THREE TIMES A DAY July 27, 2018 9:58am Start: 06-10-2016 take 1 tablet by charlee th once daily LORazepam (Ativan) 1 MG tablet Take 1 tablet by mouth daily. 0 12/18/2022 Active Start: 01-23-2007 End: 07-27-2018 take 1 tablet by mouth every eight hours as needed lorazepam (ATIVAN) 1 mg ORAL Tab Take 1 mg by mouth three times daily as needed. 0 01/23/2007 Active Start: 01-23-2007 take 0.5 tablet by m outh once daily lorazepam (ATIVAN) 1 mg ORAL Tab half tablet a day 0 01/23/2007 Active Comment on above: half tablet a day Take 1 mg by mouth t hree times daily as needed. Mepivacaine (6 sources) Amide Local Anesthetic Start: 12-22-2022 POLOCAINE-MPF USE DIRECTED Start Date: 12/22/22 Status: Ordered neomycin/polymyxin B/hydrocort ([id number] OPHTHALMIC) (9 sources) neomycin/polymyx in B/hydrocort ([id number] OPHTHALMIC) Use in eyes as directed. 0 Active Comment on above: Use in eyes as direc lisa. olopatadine 1 mg/ml ophthalmic solution (20 sources) Histamine-1 Receptor Inhibitor Start: 03-29-2023 Olopatadine Active 1 DRP OPHTHALMIC TWICE A DAY March 29, 2023 12:00am separate doses by at least 6-8 hours Start: 07-03-2022 olopatadine (P ATANOL) 0.1 % ophthalmic solution Start: 09-24-2022 take 1 drop(s) into the eye(s) twice daily as needed olopatadine (PATANOL) 0.1 % ophthalmic solution INSTILL 1 DROP INTO BOTH EYES TWICE DAILY NEEDED AT 6-8 HOUR INTERVALS. 0 07/03/2022 Active Comment on above: INSTILL 1 DROP INTO BOTH EYES TWICE DAILY NEEDED AT 6-8 HOUR INTERVALS. sucralfate 100 mg/ml oral suspension (1 source) Aluminum Complex Start: 2 take 1 mL by mouth before mealtime Sucralfate Active 10 ML PO before meals June 23, 2022 12:00am tobramycin 3 mg/ml ophthalmic solution (1 source) Aminoglycoside Antibacterial Start: 1 tobramycin (TOBREX) 0.3 % ophthalmic solution Completed/Discontinued Medications Medication Drug Class(es) Dates Sig (Normalized) Sig (Original) [id number] 200 actuat albuterol 0.09 mg/actuat metered dose inhaler (3 sources) beta2-Adrenergic Agonist Start: 02-24-2021 End: 08-20-2022 albuterol HFA (PROVENTIL HFA, VENTOLIN HFA) 90 mcg/actuation inhaler Inhale as instructed. 0 02/24/2021 08/20/2022 Discontinued Start: 02-24-2021 take 1 puff(s) by in halation every four hours as needed Albuterol Sulfate (Ventolin Hfa) 90 mcg/actuation Hfa Aerosol Inhaler Active 2 PUFF INHALATION EVERY 4 HOURS NEEDED 6.7 February 24, 2021 8:29am Comment on above: Inhale as instructed . [id number] 0.3 ml EPINEPHrine 1 mg/ml auto-injector (20 sources) alpha-Adrenergic Agonist, beta-Adrenergic Agonist, Catecholamine Start: 8 End: 3 EPINEPHrine (EPIPEN) 0.3 mg/0.3 mL auto-injector Indications: Multiple allergies as needed 1 Each 1 09/15/2018 07/05/2023 Discontinued (Other) Comment on above: as needed escitalopram 10 mg oral tablet (20 sources) Serotonin Reuptake Inhibitor Start: 7 End: 2 take 10 mg by mouth once daily Escitalopram Oxalate Discontinued 10 MG PO DAILY December 02, 2016 1:00am June 23, 2022 10:51am Start: 09-06-2014 End: 07-08-2023 Lexapro 20 mg oral tablet Do se : 20 mg = 1 tab(s), Oral, qHS Start Date: 09/06/14 Status: Ordered take 10 mg by mouth once daily, then take 10 mg by mouth once daily escitalopram oxalate (LEXAPRO) 20 mg tablet Take 10 mg by mouth once daily. Takes 10 mg (0.5 tablet) daily 0 Active Comment on above: Take 20 mg by mouth once daily. Take 10 mg by mouth once daily. Takes 10 mg (0.5 tablet) daily F18 FDG radio-isotope injection 12.413 millicurie (2 sources) Start: 3 End: 3 F18 FDG radio-isotope injection 12.413 millicurie HYDROmorphone hydrochloride 2 mg oral tablet (7 sources) Opioid Agonist Start: 3 End: 3 take 1 tablet by mouth twice daily as needed for pain HYDROmorphone 2 mg tablet Indications: S/P lobectomy of lung Take 1 tablet by mouth two times a day as needed for pain for up to 7 days. 14 tablet 0 08/02/2023 08/09/2023 Start: 07-25-2023 End: 07-30-2023 take 0.5 tablet by mouth every six hours as needed HYDROmorphone 2 mg tablet Indications: S/P lobectomy of lung , Adenocarcinoma of left lung (HCC) , Acute post-operative pain Take 0.5 tablets by mouth every 6 hours as needed for up to 5 days. 10 tablet 0 07/25/2023 07/30/2023 Active Start: 07-09-2023 End: 07-17-2023 take 1 tablet by mouth every twelve hours HYDROmorphone 2 mg tablet Indications: S/P lobectomy of lung Take 1 tablet by mouth every 12 hours for 15 doses. 15 tablet 0 07/09/2023 07/17/2023 Active Start: 07-07-2023 End: 07-12-2023 take 0.5-1 tablets by mouth every six hours as needed HYDROmorphone (DILAUDID) 2 mg tablet Indications: Carcinoma, lung, left (HCC) , S/P lobectomy of lung Take 1/2-1 tablet by mouth every 6 hours as needed for up to 5 days. 15 tablet 0 07/07/2023 07/12/2023 Active Comment on above: Take 1/2-1 tablet by mouth every 6 hours as needed for up to 5 days. Take 1 tablet by charlee th every 12 hours for 15 doses. Take 0.5 tablets by mouth every 6 hours as needed for up to 5 days. Take 1 tablet by charlee th two times a day as needed for pain for up to 7 days. lansoprazole compounding kit (FIRST LANSOPRAZOLE) 3 mg/mL oral liquid (1 source) Start: 12-03-2021 End: 08-20-2022 lansoprazole compounding kit (FIRST LANSOPRAZOLE) 3 mg/mL oral liquid Take 15 mg by mouth. 0 12/03/2021 08/20/2022 Discontinued Comment on above: Take 15 mg by mouth. latanoprost 0.05 mg/ml ophthalmic solution (3 sources) Prostaglandin Analog Start: 03-28-2021 End: 08-20-2022 latanoprost (XALATAN) 0.005 % ophthalmic solution Use in eyes. 0 03/28/2021 08/20/2022 Discontinued Start: 03-28-2021 latanoprost 0. 005% ophthalmic solution Dose = 1 drop(s), Eye, right, qHS, # 2.5 mL, 0 Refill(s), Pharmacy: [facility]/pharmacy #[id number], 164.4, cm, 03/28/21 9:00:00 EDT, Height, kg, 03/28/21 9:00:00 EDT, Dosing Weight Start Date: 03/28/21 Status: Ordered Comment on above: Use in eyes. omeprazole 20 mg delayed release oral capsule (4 sources) Proton Pump Inhibitor End: 2 take 1 capsule by mouth once daily omeprazole (PRILOSEC) 20 mg capsule Take 20 mg by mouth once daily. 0 08/20/2022 Discontinued Comment on above: Take 20 mg by mouth once daily. pantoprazole 20 mg delayed release oral tablet (1 source) Proton Pump Inhibitor Start: 3 take 1 tablet by mouth once daily pantoprazole DR (PROTONIX) 20 mg tablet Take 1 tablet by mouth once daily. 30 tablet 2 07/01/2023 Active Comment on above: Take 1 tablet by charlee th once daily. 5 ml sodium chloride 9 mg/ml injection (12 sources) Start: 3 End: sodium chloride 0.9% (NS) flush 10 mL Start: 04-28-2023 End: 04-28-2023 sodium chloride 0.9% (NS) fl ush 10 mL Start: 04-28-2023 End: 04-28-2023 sodium chloride 0.9% (NS) fl ush 10 mL Start: 04-28-2023 End: 04-28-2023 sodium chloride 0.9% (NS) fl ush 10 mL Start: 04-28-2023 End: 04-28-2023 sodium chloride 0.9 % infusi on Start: 04-28-2023 End: 04-28-2023 sodium chloride 0.9% (NS) fl ush 10 mL Problems Active Problems Problem Classification Problem Date Documented Date Episodic/Chronic Anxiety disorders (20 sources) Generalized anxiety disorder; Translations: [Generalized anxiety disorder] Onset: 2 08-20-2022 Chronic Cancer of bronchus; lung (20 sources) Malignant neoplasm of upper lobe, left bronchus or lung; Translations: [Malignant neoplasm of upper lobe, bronchus or lung] Onset: 3 03-31-2023 Chronic Chronic obstructive pulmonary disease and bronchiectasis (20 sources) Chronic obstructive lung disease; Translations: [Chronic obstructive pulmonary disease, unspecified] Onset: 2 09-06-2014 Chronic Deficiency and other anemia (1 source) Anemia; Translations: [Anemia, unspecified] 08-02-2023 Episodic Diabetes mellitus with complications (2 sources) Type 2 diabetes mellitus; Translations: [Type 2 diabetes mellitus with other diabetic kidney complication] Onset: 3 06-28-2023 Chronic Diabetes mellitus without complication (20 sources) Diabetes mellitus; Translations: [Type 2 diabetes mellitus without complications] Onset: 2 07-24-2019 Chronic Diabetes mellitus without complication (1 source) Impaired fasting glycemia; Translations: [Impaired fasting glucose] Episodic Esophageal disorders (2 sources) Gastroesophageal reflux disease; Translations: [Gastro-esophageal reflux disease without esophagitis] Onset: 3 07-01-2023 Chronic Heart valve disorders (20 sources) Mitral valve prolapse; Translations: [Nonrheumatic mitral (valve) prolapse] Onset: 2 06-06-2015 Chronic Immunizations and screening for infectious disease (6 sources) Patient encounter status; Translations: [Encounter for immunization] Episodic Lymphadenitis (4 sources) Mediastinal lymphadenopathy; Translations: [Localized enlarged lymph nodes] Onset: 3 03-31-2023 Episodic Osteoporosis (3 sources) Osteoporosis; Translations: [Age-related osteoporosis without current pathological fracture] Onset: 3 Chronic Other eye disorders (12 sources) Red eye 03-28-2021 Episodic Other gastrointestinal disorders (1 source) Dysphagia; Translations: [Dysphagia, pharyngoesophageal phase] 07-01-2023 Episodic Other lower respiratory disease (2 sources) Cough; Translations: [Cough] Episodic Other lower respiratory disease (8 sources) Nodule of lung; Translations: [Solitary pulmonary nodule] 03-31-2023 Episodic Other lower respiratory disease (1 source) Lung mass; Translations: [Other nonspecific abnormal finding of lung field] 05-16-2023 Episodic Other lower respiratory disease (1 source) Dyspnea on exertion; Translations: [Other forms of dyspnea] 06-27-2023 Episodic Other nervous system disorders (1 source) Other chronic pain; Translations: [Chronic mid back pain] Onset: 3 Chronic Other nervous system disorders (1 source) Other chronic postprocedural pain; Translations: [Chronic post-operative pain] Onset: 4 Chronic Other nervous system disorders (12 sources) O/E - Romberg positive 03-28-2021 Episodic Other nervous system disorders (2 sources) Acute postoperative pain; Translations: [Other acute postprocedural pain] 07-25-2023 Episodic Other nutritional; endocrine; and metabolic disorders (20 sources) Obesity; Translations: [Obesity, unspecified] Onset: 7 01-23-2007 Chronic Other nutritional; endocrine; and metabolic disorders (20 sources) Hypomagnesemia; Translations: [Hypomagnesemia] Onset: 2 08-20-2022 Chronic Other nutritional; endocrine; and metabolic disorders (2 sources) Obese class I; Translations: [Obesity, unspecified] Onset: 4 10-18-2023 Chronic Other nutritional; endocrine; and metabolic disorders (1 source) Hypomagnesemia; Translations: [Hypomagnesemia] Onset: 4 Chronic Other upper respiratory disease (1 source) Laryngeal spasm; Translations: [Laryngeal spasm] 05-05-2023 Episodic Other upper respiratory disease (2 sources) Laryngeal spasm; Translations: [Laryngeal spasm] Onset: 3 Episodic Other upper respiratory infections (19 sources) Acute bacterial sinusitis; Translations: [Viral upper respiratory tract infection] 05-08-2021 Episodic Residual codes; unclassified (20 sources) Sleep apnea; Translations: [Sleep apnea, unspecified] Onset: 7 09-06-2014 Chronic Residual codes; unclassified (16 sources) Obstructive sleep apnea syndrome; Translations: [Obstructive sleep apnea (adult) (pediatric)] 07-27-2018 Chronic Residual codes; unclassified (2 sources) Obstructive sleep apnea (adult) (pediatric); Translations: [Obstructive sleep apnea (adult) (pediatric)] Onset: 3 Chronic Residual codes; unclassified (1 source) Menopause present; Translations: [Asymptomatic menopausal state] Episodic Substance-related disorders (1 source) Sedative, hypnotic or anxiolytic dependence, uncomplicated; Translations: [Sedative, hypnotic or anxiolytic dependence, uncomplicated] Onset: 5 Chronic Thyroid disorders (20 sources) Hypothyroidism; Translations: [Hypothyroidism, unspecified] Onset: 7 07-24-2019 Chronic Unclassified (2 sources) Lung Nodule; Translations: [Lung Nodule] Onset: 3 Unclassified (2 sources) New Patient; Translations: [New Patient] Onset: 3 Unclassified (2 sources) History of lung lobectomy 08-23-2023 Past or Other Problems Problem Classification Problem Date Documented Date Episodic/Chronic Abdominal pain (16 sources) Right upper quadrant pain; Translations: [Abdominal pain] Onset: 3 06-04-2022 Episodic Allergic reactions (20 sources) Allergic disposition; Translations: [Allergy status to unspecified drugs, medicaments and biological substances status] Onset: 8 09-15-2018 Episodic Cardiac dysrhythmias (20 sources) Bradycardia; Translations: [Palpitations] Onset: 7 11-12-2019 Episodic Conditions associated with dizziness or vertigo (20 sources) Vertigo; Translations: [Dizziness and giddiness] Onset: 2 03-28-2021 Episodic Deficiency and other anemia (2 sources) Anemia, unspecified; Translations: [Anemia, unspecified type] Onset: 3 Episodic Gastritis and duodenitis (20 sources) Acute gastritis; Translations: [Acute gastritis without bleeding] Onset: 2 08-20-2022 Episodic Nonmalignant breast conditions (1 source) Unspecified lump in the left breast, upper outer quadrant; Translations: [Unspecified lump in the left breast, upper outer quadrant] Onset: 4 Episodic Nonspecific chest pain (20 sources) Chest pain; Translations: [Chest pain, unspecified] Onset: 2 09-24-2020 Episodic Other connective tissue disease (20 sources) Muscle pain; Translations: [Myalgia and myositis, unspecified] Onset: 7 01-23-2007 Episodic Other gastrointestinal disorders (1 source) Dysphagia, pharyngoesophageal phase; Translations: [Pharyngoesophageal dysphagia] Onset: 3 Episodic Other lower respiratory disease (20 sources) Dyspnea; Translations: [Shortness of breath] Onset: 7 09-24-2020 Episodic Other lower respiratory disease (2 sources) Solitary pulmonary nodule; Translations: [Solitary pulmonary nodule] Onset: 3 Episodic Other lower respiratory disease (2 sources) Pleurodynia; Translations: [Pleurodynia] Onset: 3 Episodic Other lower respiratory disease (1 source) Shortness of breath; Translations: [Shortness of breath] Onset: 7 Episodic Other lower respiratory disease (1 source) Other forms of dyspnea; Translations: [GARNER (dyspnea on exertion)] Onset: 3 Episodic Other lower respiratory disease (1 source) Hypoxemia; Translations: [Hypoxemia] Onset: 4 Episodic Other nervous system disorders (1 source) Other acute postprocedural pain; Translations: [Acute post-operative pain] Onset: 3 Episodic Other screening for suspected conditions (not mental disorders or infectious disease) (2 sources) Radiology result abnormal; Translations: [Abnormal results of function studies of other organs and systems] Onset: 4 06-22-2023 Episodic Other skin disorders (20 sources) Mass of head; Translations: [Localized swelling, mass and lump, head] Onset: 2 03-28-2021 Episodic Residual codes; unclassified (12 sources) History of lung lobectomy; Translations: [Acquired absence of lung [part of]] Onset: 3 07-04-2023 Episodic Residual codes; unclassified (2 sources) Acquired absence of lung [part of]; Translations: [S/P lobectomy of lung] Onset: 3 Episodic Spondylosis; intervertebral disc disorders; other back problems (20 sources) Chronic thoracic back pain; Translations: [Pain in thoracic spine] Onset: 8 09-15-2018 Episodic Sprains and strains (20 sources) Lower back injury; Translations: [Strain of muscle, fascia and tendon of lower back, initial encounter] Onset: 2 08-20-2022 Episodic Superficial injury; contusion (20 sources) Contusion of knee; Translations: [Contusion of left knee, initial encounter] Onset: 2 08-20-2022 Episodic Syncope (20 sources) Near syncope; Translations: [Syncope and collapse] Onset: 2 08-20-2022 Episodic Viral infection (20 sources) Disease caused by 2019-nCoV; Translations: [COVID-19] Onset: 2 08-20-2022 Episodic Results Test Name Value Interpretation Reference Range Facility MR/BMS.[facility] 02-26-2025 MR/BMS. [place] [id number] OFFICE VISIT Date of Service: 02/26/25 MR#: [id number] Acct: [id number] Name: JESSICA ASH Rep #: [id number] : 1945 Provider: Dr. Flakito Overton se, DO Age/Sex: 80/F Location[place] [facility] [place] Status: Signed Intake Vital Signs 11/27/24 14:17 02/11/25 14:30 02/26/25 14:15 Height 5 ft 5 in 5 ft 5 in 5 ft 5 in Weight: 183 lb BMI 30.4 BP 134/68 H 100/67 Blood Pressure Location Lt brachial Rt brachial Position Sitting Sitting Respiration 16 16 Pulse 47 L 52 L Pulse Source Monitor Monitor Temp 96.6 F L Temperature Source Temporal Artery Pulse Oximetry (%) 95 Oxygen Delivery Method room air BP Intake Visit Reasons: 3 M FU Allergies prochlorperazine (From Compazine) Allergy (Severe, Verified 02/11/25 14:29) Anaphylaxis chicken derived Allergy (Unknown, Verified 02/11/25 14:29) unknown egg (eggs) Allergy (Unknown, Verified 02/11/25 14:29) unknown ketorolac (From Toradol) Allergy (Unknown, Verified 02/11/25 14:29) unknown morphine Allergy (Unknown, Verified 02/11/25 14:29) Unknown ondansetron (From Zofran) Allergy (Unknown, Verified 02/11/25 14:29) unknown povidone-iodine (From Betadine) Allergy (Unknown, Verified 02/11/25 14:29) unknown promethazine (From Phenergan) Allergy (Unknown, Verified 02/11/25 14:29) unknown propofol Allergy (Unknown, Verified 02/11/25 14:29) Unknown Sulfa (Sulfonamide Antibiotics) Allergy (Unknown, Verified 02/11/25 14:29) Unknown acetaminophen (From Tylenol) Allergy (Verified 02/11/25 14:29) Rash aspirin Allergy (Verified 02/11/25 14:29) Shortness of breath diphenhydramine (From Benadryl) Allergy (Verified 02/11/25 14:29) Hives Iodinated Contrast Media Allergy (Verified 02/11/25 14:29) Anaphylaxis NSAIDS (Non-Steroidal Anti-Inflamma Allergy (Verified 02/11/25 14:29) Rash cephalexin (From Keflex) Adverse Reaction (Unknown, Verified 02/11/25 14:29) Unknown Cephalosporins Adverse Reaction (Unknown, Verified 02/11/25 14:29) Unknown codeine Adverse Reaction (Unknown, Verified 02/11/25 14:29) Unknown doxycycline Adverse Reaction (Unknown, Verified 02/11/25 14:29) Unknown erythromycin base Adverse Reaction (Unknown, Verified 02/11/25 14:29) Unknown ibuprofen (From Motrin) Adverse Reaction (Unknown, Verified 02/11/25 14:29) Unknown lidocaine Adverse Reaction (Unknown, Verified 02/11/25 14:29) Unknown meperidine Adverse Reaction (Unknown, Verified 02/11/25 14:29) Unknown Penicillins Adverse Reaction (Unknown, Verified 02/11/25 14:29) Unknown ANTIBIOTICS Allergy (Severe, Uncoded 02/11/25 14:29) Anaphylaxis; SOB PAIN MEDICATIONS Allergy (Uncoded 02/11/25 14:29) Rash Have you fallen in the past year?: No PFSH Medical History Long-term current use of benzodiazepine Hypotension OJ (generalized anxiety disorder) Anxiety disorder, unspecified Benzodiazepine dependence History of chemical exposure MVP (mitral valve prolapse) Bradycardia RUQ pain Anxiety Depression Former smoker CPAP (continuous positive airway pressure) dependence Sleep apnea COPD (chronic obstructive pulmonary disease) Irregular heart beat Hyperthyroidism Non-smoker Diet-controlled diabetes mellitus Nonrheumatic mitral (valve) prolapse Palpitations Obstructive sleep apnea syndrome Obesity Surgical History History of thoracic surgery History of appendectomy History of cholecystectomy History of hysterectomy Family History Father Cancer throat/lung - worked in [employer] Heart disease Myocardial infarction CAD (coronary artery disease) Mother Congestive heart failure Diabetes Skin cancer COPD (chronic obstructive pulmonary disease) Son Colon cancer Aunt Breast cancer paternal Brother Pancreatic cancer Grandmother Bladder cancer maternal Aunt Lung cancer maternal Social History adopted: No household members: spouse housing: house number of children: 3 current occupational status: retired pets and animals: Yes pets and animals: dog(s) leisure activities: reading and other history of recent travel: No sexually active: No Smoking Status: Former smoker quit date: 10/10/94 pack-years: 62 Tobacco: How many years used: 31 how long ago did patient quit smoking: quit in 1994, smoked 2 ppd x 31 yrs alcohol intake: never substance use type: does not use well-balanced diet: daily or most days caffeine: No eating out: 1-3 times/week during the past year weight has: remained stable what type of physical activity do you participate in: walking frequency: 3-4 times per week duration: 15-30 minutes/da (more content not included)... Normal [facility] Oncology Visit Reporton Oncology Visit Report [facility] [address] [place] [address] OFFICE VISIT Date of Service: 02/11/25 1427 MR#: [id number] Acct: [id number] Name: JESSICA ASH Rep #: [id number] : 1945 From: Emil Whittington MD Age/Sex: 80/F Location[place] [facility] [place] Status: Signed HPI Subjective Date of Service 02/11/25 Chief Complaint Lung cancer follow-up History of Present Illness 80 year-old female with chronic reactive airways disease on nocturnal oxygen and an ex-smoker who quit several decades earlier presented in October 2022 with increasing dyspnea. Pulmonary function tests October 2022: Obstructive ventilatory defect, FEV1 78%, normal lung volume and DLCO. CT scan of the chest October 2022: Posterior left upper lobe consolidation which has a nodular central aspect could be infectious or inflammatory follow-up recommended. CT scan of the chest November 2022: Stable left upper lobe consolidation with nodular central density concerning for malignancy PET/CT recommended. PET/CT January 2023: Hypermetabolic left posterior upper lobe lesion max SUV of 4 concerning for malignancy, nonspecific diffusely increased gastric and bowel activity possibly physiologic infectious or inflammatory. March 2023 Left upper lung nodule, CT-guided core biopsy: Non-small cell carcinoma, favor adenocarcinoma, consistent with lung primary. July 04, 2023: Thoracotomy with left upper lobectomy and mediastinal lymph node sampling at [facility] by Dr. Trevino: Pathology: Left upper lobectomy adenocarcinoma, negative margins, visceral pleura involved by tumor, 3 peribronchial lymph nodes negative for metastatic cancer, single focus in left upper lobe, measuring 1.9 cm in maximum diameter, grade 2, lymphovascular invasion not identified, all margins negative with distance from invasive carcinoma to closest margin of 3.4 cm. Regional lymph nodes examined 10, no metastatic cancer identified. Pathologic stage T2a, N0. October 24, 2023 CT chest and abdomen: IMPRESSION: Status post left upper lobectomy. No acute abnormality is seen. May 01, 2024 CT chest abdomen: IMPRESSION: 1. No CT evidence of residual, recurrent, or metastatic bronchogenic carcinoma. 2. Small pericardial effusion. 3. Small hiatal hernia. 4. 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 November 05, 2024 CT chest and abdomen: IMPRESSION: 1. Postsurgical changes left upper lobectomy, stable. 2. 3 mm nodule right lower lobe, stable. Continued CT follow-up recommended in one year. 3. Emphysematous changes. The presence of pulmonary emphysema on CT scan is an independent risk factor for lung cancer. Consider low dose lung cancer screening in the future, as clinically indicated. 4. No consolidation or evidence of acute inflammatory process. 5. Small pericardial effusion, unchanged. 6. Small hiatal hernia. 7. Focal mesenteric stranding unchanged compared to prior. 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 Treatment summary and response: July 04, 2023: Thoracotomy with left upper lobectomy and mediastinal lymph node sampling at [facility] by Dr. Trevino [facility] Medical History Long-term current use of benzodiazepine Hypotension JO (generalized anxiety disorder) Anxiety disorder, unspecified Benzodiazepine dependence History of chemical exposure MVP (mitral valve prolapse) Bradycardia RUQ pain Anxiety Depression Former smoker CPAP (continuous positive airway pressure) dependence Sleep apnea COPD (chronic obstructive pulmonary disease) Irregular heart beat Hyperthyroidism Non-smoker Diet-controlled diabetes mellitus Nonrheumatic mitral (valve) prolapse Palpitations Obstructive sleep apnea syndrome Obesity Surgical History History of thoracic surgery History of appendectomy History of cholecystectomy History of hysterectomy Family History Father Cancer throat/lung - worked in [employer] Heart disease Myocardial infarction CAD (coronary artery disease) Mother Congestive heart failure Diabetes Skin cancer COPD (chronic obstructive pulmonary disease) Son Colon cancer Aunt Breast cancer paternal Brother Pancreatic cancer Grandmother Bladder cancer maternal Aunt Lung cancer maternal Social History adopted: No household members: spouse housing: house number of children: 3 current occupational status: retired pets and animals: Yes pets and animals: dog(s) leisure activities: reading and other history of recent travel: No sexually active: No Smoking Status: Former smoker quit date: 10/10/94 pack-years: 62 Tobac (more content not included)... Normal [facility] MR/BMS.BPon 11-27-2024 MR/BMS.BP [address], [address] [place] [address] OFFICE VISIT Date of Service: 11/27/24 MR#: [id number] Acct: [id number] Name: JESSICA ASH Rep #: [id number] : 1945 Provider: Dr. Flakito Overton se DO Age/Sex: 79/F Location: [facility] [place] Status: Signed Intake Vital Signs 08/16/24 15:01 11/12/24 11:00 11/27/24 14:17 Height 5 ft 5 in 5 ft 5 in 5 ft 5 in BP 134/68 H Blood Pressure Location Lt brachial Position Sitting Respiration 16 Pulse 47 L Pulse Source Monitor BP Intake Visit Reasons: 3-4mfu Accompanied by: Self Allergies prochlorperazine (From Compazine) Allergy (Severe, Verified 11/27/24 14:22) Anaphylaxis chicken derived Allergy (Unknown, Verified 11/27/24 14:22) unknown egg (eggs) Allergy (Unknown, Verified 11/27/24 14:22) unknown ketorolac (From Toradol) Allergy (Unknown, Verified 11/27/24 14:22) unknown morphine Allergy (Unknown, Verified 11/27/24 14:22) Unknown ondansetron (From Zofran) Allergy (Unknown, Verified 11/27/24 14:22) unknown povidone-iodine (From Betadine) Allergy (Unknown, Verified 11/27/24 14:22) unknown promethazine (From Phenergan) Allergy (Unknown, Verified 11/27/24 14:22) unknown propofol Allergy (Unknown, Verified 11/27/24 14:22) Unknown Sulfa (Sulfonamide Antibiotics) Allergy (Unknown, Verified 11/27/24 14:22) Unknown acetaminophen (From Tylenol) Allergy (Verified 11/27/24 14:22) Rash aspirin Allergy (Verified 11/27/24 14:22) Shortness of breath diphenhydramine (From Benadryl) Allergy (Verified 11/27/24 14:22) Hives Iodinated Contrast Media Allergy (Verified 11/27/24 14:22) Anaphylaxis NSAIDS (Non-Steroidal Anti-Inflamma Allergy (Verified 11/27/24 14:22) Rash cephalexin (From Keflex) Adverse Reaction (Unknown, Verified 11/27/24 14:22) Unknown Cephalosporins Adverse Reaction (Unknown, Verified 11/27/24 14:22) Unknown codeine Adverse Reaction (Unknown, Verified 11/27/24 14:22) Unknown doxycycline Adverse Reaction (Unknown, Verified 11/27/24 14:22) Unknown erythromycin base Adverse Reaction (Unknown, Verified 11/27/24 14:22) Unknown ibuprofen (From Motrin) Adverse Reaction (Unknown, Verified 11/27/24 14:22) Unknown lidocaine Adverse Reaction (Unknown, Verified 11/27/24 14:22) Unknown meperidine Adverse Reaction (Unknown, Verified 11/27/24 14:22) Unknown Penicillins Adverse Reaction (Unknown, Verified 11/27/24 14:22) Unknown ANTIBIOTICS Allergy (Severe, Uncoded 11/27/24 14:22) Anaphylaxis; SOB PAIN MEDICATIONS Allergy (Uncoded 11/27/24 14:22) Rash Medications ???Medication ???Instructions ???Recorded ???Confirmed ???Type [id number] ocort 3.5 otic (ear) PRN 11/14/23 11/27/24 H istory mg/mL-10,000 unit/mL-1 % ear solution olopatadine 0.1 % eye drops 1 drp ophthalmic (eye) BID PRN 03/0211/27/24 History (Pataday Twice Daily Relief) escitalopram oxalate 20 mg tablet 20 mg PO DAILY 07/16/24 11/27/24 History (Lexapro) levothyroxine 50 mcg tablet 100 mcg (2 x 50 mcg) PO .2 tabs 11/27/24 Rx (Synthroid) qd, 3 on #186 tabs lorazepam 0.5 mg tablet 0.5 mg PO BID Anxiety #60 tabs 11/27/24 Rx Have you fallen in the past year?: No PFSH Medical History (Updated 11/27/24 @ 14:[address] Flakito Malik, DO) Long-term current use of benzodiazepine Hypotension JO (generalized anxiety disorder) Anxiety disorder, unspecified Benzodiazepine dependence History of chemical exposure MVP (mitral valve prolapse) Bradycardia RUQ pain Anxiety Depression Former smoker CPAP (continuous positive airway pressure) dependence Sleep apnea COPD (chronic obstructive pulmonary disease) Irregular heart beat Hyperthyroidism Non-smoker Diet-controlled diabetes mellitus Nonrheumatic mitral (valve) prolapse Palpitations Obstructive sleep apnea syndrome Obesity Surgical History History of thoracic surgery History of appendectomy History of cholecystectomy History of hysterectomy Family History Father Cancer throat/lung - worked in [employer] Heart disease Myocardial infarction CAD (coronary artery disease) Mother Congestive heart failure Diabetes Skin cancer COPD (chronic obstructive pulmonary disease) Son Colon cancer Aunt Breast cancer paternal Brother Pancreatic cancer Grandmother Bladder cancer maternal Aunt Lung cancer maternal Social History adopted: No household members: spouse housing: house number of children: 3 current occupational status: retired pets and animals: Yes pets and animals: dog(s) leisure activities: reading and other history of recent travel: No sexually active: No Smoking Status: Former (more content not included)... Normal [facility] Oncology Visit Reporton Oncology Visit Report [facility] [address] [place] [address] OFFICE VISIT Date of Service: 11/12/24 1056 MR#: [id number] Acct: [id number] Name: JESSICA ASH Rep #: [id number] : 1945 From: Emil Whittington MD Age/Sex: 79/F Location[place] [facility] [place] Status: Signed HPI Subjective Date of Service 11/12/24 Chief Complaint Lung cancer History of Present Illness 79 year-old female with chronic reactive airways disease on nocturnal oxygen and an ex-smoker who quit several decades earlier presented in October 2022 with increasing dyspnea. Pulmonary function tests October 2022: Obstructive ventilatory defect, FEV1 78%, normal lung volume and DLCO. CT scan of the chest October 2022: Posterior left upper lobe consolidation which has a nodular central aspect could be infectious or inflammatory follow-up recommended. CT scan of the chest November 2022: Stable left upper lobe consolidation with nodular central density concerning for malignancy PET/CT recommended. PET/CT January 2023: Hypermetabolic left posterior upper lobe lesion max SUV of 4 concerning for malignancy, nonspecific diffusely increased gastric and bowel activity possibly physiologic infectious or inflammatory. March 2023 Left upper lung nodule, CT-guided core biopsy: Non-small cell carcinoma, favor adenocarcinoma, consistent with lung primary. July 04, 2023: Thoracotomy with left upper lobectomy and mediastinal lymph node sampling at [facility] by Dr. Trevino: Pathology: Left upper lobectomy adenocarcinoma, negative margins, visceral pleura involved by tumor, 3 peribronchial lymph nodes negative for metastatic cancer, single focus in left upper lobe, measuring 1.9 cm in maximum diameter, grade 2, lymphovascular invasion not identified, all margins negative with distance from invasive carcinoma to closest margin of 3.4 cm. Regional lymph nodes examined 10, no metastatic cancer identified. Pathologic stage T2a, N0. October 24, 2023 CT chest and abdomen: IMPRESSION: Status post left upper lobectomy. No acute abnormality is seen. May 01, 2024 CT chest abdomen: IMPRESSION: 1. No CT evidence of residual, recurrent, or metastatic bronchogenic carcinoma. 2. Small pericardial effusion. 3. Small hiatal hernia. 4. 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 November 05, 2024 CT chest and abdomen: IMPRESSION: 1. Postsurgical changes left upper lobectomy, stable. 2. 3 mm nodule right lower lobe, stable. Continued CT follow-up recommended in one year. 3. Emphysematous changes. The presence of pulmonary emphysema on CT scan is an independent risk factor for lung cancer. Consider low dose lung cancer screening in the future, as clinically indicated. 4. No consolidation or evidence of acute inflammatory process. 5. Small pericardial effusion, unchanged. 6. Small hiatal hernia. 7. Focal mesenteric stranding unchanged compared to prior. 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 Treatment summary and response: July 04, 2023: Thoracotomy with left upper lobectomy and mediastinal lymph node sampling at [facility] by Dr. Trevino [facility] Medical History Hypotension JO (generalized anxiety disorder) Anxiety disorder, unspecified Benzodiazepine dependence History of chemical exposure MVP (mitral valve prolapse) Bradycardia RUQ pain Anxiety Depression Former smoker CPAP (continuous positive airway pressure) dependence Sleep apnea COPD (chronic obstructive pulmonary disease) Irregular heart beat Hyperthyroidism Non-smoker Diet-controlled diabetes mellitus Nonrheumatic mitral (valve) prolapse Palpitations Obstructive sleep apnea syndrome Obesity Surgical History History of thoracic surgery History of appendectomy History of cholecystectomy History of hysterectomy Family History Father Cancer throat/lung - worked in [employer] Heart disease Myocardial infarction CAD (coronary artery disease) Mother Congestive heart failure Diabetes Skin cancer COPD (chronic obstructive pulmonary disease) Son Colon cancer Aunt Breast cancer paternal Brother Pancreatic cancer Grandmother Bladder cancer maternal Aunt Lung cancer maternal Social History adopted: No household members: spouse housing: house number of children: 3 current occupational status: retired pets and animals: Yes pets and animals: dog(s) leisure activities: reading and other history of recent travel: No sexually active: No Smoking Status: Former smoker quit date: 10/10/94 pack-years: 62 Tobacco: How many years used: 31 how long ago did patient quit smok (more content not included)... Normal [facility] CT Chest AND Abd W/O Contras ton 11-05-2024 CT Chest AND Abd W/O Contrast [facility] Imaging Services [address] [place], [place] [id number] CT Chest AND Abd W/O Contrast MR#: [id number] Acct: [id number] Name: JESSICA ASH Rep #: [id number] : 1945 F 79 From: Leslie Isbell PCP: Dr. Corinne Panda, DO Status: REG CLI Study: CT Chest AND Abd W/O Contrast Date of Exam: Exam# [id number] Ordering Dr: [place] [id number] EXAM: CT Chest And Abdomen W/O Contrast Injection HISTORY: NSCLC S/P LOBECTOMY LEFT SIDE, INCREASE IN COUGHING, DB TECHNIQUE: Routine protocol CT chest and abdomen without IV contrast. IV Contrast: None.. Oral contrast: None. RADIATION DOSAGE (If Supplied By Facility): CTDIvol = ( 9.91 ) mGy, DLP = ( 634.05 ) mGycm Individualized dose optimization techniques were used for this CT. COMPARISON: CT chest and abdomen 05/01/2024. LIMITATIONS: None. FINDINGS: ---CHEST LUNGS: Emphysematous changes. Surgical clips in the left upper lobe and left hilar region, with associated reticular opacities postsurgical changes, not significantly changed. No consolidation. 3 mm nodule right lower lobe is not significantly changed. LARGE AIRWAYS: Unremarkable. PLEURA: No pleural effusion. No pneumothorax. MEDIASTINUM: Unremarkable. HEART: Not enlarged. Small pericardial effusion not significantly changed. CORONARY ARTERIES: Coronary artery calcifications are not seen. AORTA/VESSELS: No aortic aneurysm. ESOPHAGUS: Unremarkable. Small hiatal hernia. BONES/SOFT TISSUES: No acute abnormality. Postsurgical changes left ribs. Sclerotic focus right ninth rib laterally, unchanged, may be an old healed fracture or bone island. OTHER/LINES: None. ---ABDOMEN LIVER: Grossly unremarkable. GALLBLADDER AND BILIARY TREE: Gallbladder not identified presumed surgically absent. PANCREAS: Grossly unremarkable. SPLEEN: Grossly unremarkable. ADRENAL GLANDS: Grossly unremarkable. KIDNEYS AND URETERS: No calculi demonstrated. No hydronephrosis. Small cysts in both kidneys, no follow-up needed PERITONEUM: No free air. No free fluid. BOWEL: No bowel obstruction. Focal stranding in the mesentery centrally in the mid/left abdomen with prominent mesenteric lymph nodes, unchanged. VESSELS: Abdominal aorta is normal caliber. ABDOMINAL WALL: Unremarkable. BONES: No acute abnormalities. Degenerative changes lumbar spine and minimal anterolisthesis at L4-5. Mild compression abnormality T12 is unchanged. CT/CT Chest AND Abd W/O Contrast IMPRESSION: 1. Postsurgical changes left upper lobectomy, stable. 2. 3 mm nodule right lower lobe, stable. Continued CT follow-up recommended in one year. 3. Emphysematous changes. The presence of pulmonary emphysema on CT scan is an independent risk factor for lung cancer. Consider low dose lung cancer screening in the future, as clinically indicated. 4. No consolidation or evidence of acute inflammatory process. 5. Small pericardial effusion, unchanged. 6. Small hiatal hernia. 7. Focal mesenteric stranding unchanged compared to prior. 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 Electronically Signed: Leslie Lake MD at 23:35 EST , CC: Dr. Corinne Panda DO; Dr. Emil Whittington MD Professional Shopper: Signed Normal [facility] Free T3on 10-18-2024 Free T3 [Mass/Vol] 1.4 pg/mL Low 2.18-3.98 [facility] Comment on above: Performed By: #### L [id number], L501.9520, L506.0400 #### [facility] [address] [place], [place], [id number] T4 Free Directon 10-18-2024 T4 FREE DIRECT 0.80 ng/dL Normal 0.76-1.46 [facility] Comment on above: Performed By: #### L [id number], L501.9520, L506.0400 #### [facility] [address] [place], [place], [id number] Thyroid Stim Hormone (TSH)on 10-18-2024 TSH 17.300 uIU/mL High 0.358-3.740 [facility] Comment on above: Performed By: #### L [id number], L501.9520, L506.0400 #### [facility] [address] [place], [address] Oncology Visit Reporton Oncology Visit Report [facility] [address] [place] [address] OFFICE VISIT Date of Service: 09/11/24 1304 MR#: [id number] Acct: [id number] Name: JESSICA ASH Rep #: [id number] : 1945 From: Emil Whittington MD Age/Sex: 79/F Location[place] [facility] [place] Status: Signed HPI Subjective Date of Service 09/11/24 Chief Complaint Lung cancer History of Present Illness 79 year-old female with chronic reactive airways disease on nocturnal oxygen and an ex-smoker who quit several decades earlier presented in October 2022 with increasing dyspnea. Pulmonary function tests October 2022: Obstructive ventilatory defect, FEV1 78%, normal lung volume and DLCO. CT scan of the chest October 2022: Posterior left upper lobe consolidation which has a nodular central aspect could be infectious or inflammatory follow-up recommended. CT scan of the chest November 2022: Stable left upper lobe consolidation with nodular central density concerning for malignancy PET/CT recommended. PET/CT January 2023: Hypermetabolic left posterior upper lobe lesion max SUV of 4 concerning for malignancy, nonspecific diffusely increased gastric and bowel activity possibly physiologic infectious or inflammatory. March 2023 Left upper lung nodule, CT-guided core biopsy: Non-small cell carcinoma, favor adenocarcinoma, consistent with lung primary. July 04, 2023: Thoracotomy with left upper lobectomy and mediastinal lymph node sampling at [facility] by Dr. Trevino: Pathology: Left upper lobectomy adenocarcinoma, negative margins, visceral pleura involved by tumor, 3 peribronchial lymph nodes negative for metastatic cancer, single focus in left upper lobe, measuring 1.9 cm in maximum diameter, grade 2, lymphovascular invasion not identified, all margins negative with distance from invasive carcinoma to closest margin of 3.4 cm. Regional lymph nodes examined 10, no metastatic cancer identified. Pathologic stage T2a, N0. October 24, 2023 CT chest and abdomen: IMPRESSION: Status post left upper lobectomy. No acute abnormality is seen. May 01, 2024 CT chest abdomen: IMPRESSION: 1. No CT evidence of residual, recurrent, or metastatic bronchogenic carcinoma. 2. Small pericardial effusion. 3. Small hiatal hernia. 4. 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 Treatment summary and response: July 04, 2023: Thoracotomy with left upper lobectomy and mediastinal lymph node sampling at [facility] by Dr. Trevino [facility] Medical History Hypotension JO (generalized anxiety disorder) Anxiety disorder, unspecified Benzodiazepine dependence History of chemical exposure MVP (mitral valve prolapse) Bradycardia RUQ pain Anxiety Depression Former smoker CPAP (continuous positive airway pressure) dependence Sleep apnea COPD (chronic obstructive pulmonary disease) Irregular heart beat Hyperthyroidism Non-smoker Diet-controlled diabetes mellitus Nonrheumatic mitral (valve) prolapse Palpitations Obstructive sleep apnea syndrome Obesity Surgical History History of thoracic surgery History of appendectomy History of cholecystectomy History of hysterectomy Family History Father Cancer throat/lung - worked in [employer] Heart disease Myocardial infarction CAD (coronary artery disease) Mother Congestive heart failure Diabetes Skin cancer COPD (chronic obstructive pulmonary disease) Son Colon cancer Aunt Breast cancer paternal Brother Pancreatic cancer Grandmother Bladder cancer maternal Aunt Lung cancer maternal Social History adopted: No household members: spouse housing: house number of children: 3 current occupational status: retired pets and animals: Yes pets and animals: dog(s) leisure activities: reading and other history of recent travel: No sexually active: No Smoking Status: Former smoker quit date: 10/10/94 pack-years: 62 Tobacco: How many years used: 31 how long ago did patient quit smoking: quit in 1994, smoked 2 ppd x 31 yrs alcohol intake: never substance use type: does not use well-balanced diet: daily or most days caffeine: No eating out: 1-3 times/week during the past year weight has: remained stable what type of physical activity do you participate in: walking frequency: 3-4 times per week duration: 15-30 minutes/day seatbelt use: always do you feel safe at home: Yes ROS Constitutional Constitutional: Reports systems reviewed and no addt'l complaints, except as documented and fatigue; Denies anorexia, fever(s) or weight loss Eyes Eyes: Reports systems reviewed and (more content not included)... Normal [facility] Echo Completeon 08-28-2024 Echo Complete [facility] [address] [place] [address] Echo Complete 08/28/24 1101 MR#: [id number] Acct: [id number] Name: JESSICA ASH Rep #: [id number] : 1945 79 From: Andrew Fritz MD Attending Dr: Dr. Andrew Fritz MD Status: LARA GONZALEZ Ordering Dr: Andrew Fritz MD Date: 08/28/24 Location: [facility] Sex: F C Admitted: Reason For Study: MITRAL VALVE PROLAPSE Procedure This was a 2D Doppler, Color Flow transthoracic echocardiogram. Myocardial strain analysis was performed in this exam to aid in the assessment of cardiac function. Exam performed in department. Left Ventricle Normal LV size. Left ventricular systolic function is normal. The left ventricular ejection fraction is 60 %. No regional wall motion abnormalities noted. Right Ventricle Normal RV size. Normal systolic function. Atria Normal left atrium. Normal right atrium. Mitral Valve Normal mitral valve. Tricuspid Valve Normal tricuspid valve. Aortic Valve Trisinus/trileaflet aortic valve. Pulmonic Valve Normal pulmonic valve. Great Vessels Normal aortic root. The pulmonary artery is normal size. Inferior vena cava collapse with respiration. Pericardium/Pleural Trivial pericardial effusion. MMode/2D Measurements Calculations LVIDd: 5.4 cm IVSd: 1.0 cm LVOT diam: 1.8 cm LVIDs: 3.0 cm LVPWd: 1.0 cm LVOT area: 2.4 cm2 RVDd: 3.5 cm FS: 44.4 % asc Aorta Diam: 3.2 cm LAV(MOD-bp): 44.1 ml LVAd ap4: 18.6 cm2 LAV(MOD-bp) Indexed: 23.6 ml/m2 LVLd ap4: 6.6 cm LAV(MOD-sp2): 44.8 ml EDV(MOD-sp4): 42.8 ml LAV(MOD-sp4): 42.4 ml EDV(sp4-el): 44.6 ml LVAs ap4: 10.4 cm2 LVLs ap4: 5.3 cm ESV(MOD-sp4): 16.9 ml ESV(sp4-el): 17.1 ml EF(MOD-sp4): 60.5 % EF(sp4-el): 61.7 % LVAd ap2: 17.5 cm2 SV(MOD-sp4): 25.9 ml SV(MOD-sp2): 22.4 ml LVLd ap2: 6.9 cm SI(MOD-sp4): 13.9 ml/m2 SI(MOD-sp2): 12.0 ml/m2 EDV(MOD-sp2): 35.9 ml EDV(sp2-el): 37.4 ml LVAs ap2: 9.4 cm2 LVLs ap2: 5.7 cm ESV(MOD-sp2): 13.5 ml ESV(sp2-el): 13.3 ml EF(MOD-sp2): 62.5 % SV(sp4-el): 27.5 ml Ao sinus diam: 2.[address] Junction: 2.5 cm LA dimension(2D): 4.2 cm LA A4 area: 16.3 cm2 RA A4 area: 9.3 cm2 TAPSE: 1.7 cm Time Measurements MV dec time: 0.23 sec Doppler Measurements Calculations MV E max emilie: 73.7 cm/sec Lat Peak E' Emilie: 3.7 cm/sec Med Peak E' Emilie: 3.6 cm/sec MV A max emilie: 97.4 cm/sec E/E' lat: 19.9 E/E' med: 20.5 MV E/A: 0.76 MV dec slope: 314.5 cm/sec2 Ao V2 max: 170.8 cm/sec LV V1 max: 126.5 cm/sec Ao max P.7 mmHg LV V1 max P.4 mmHg Ao V2 mean: 125.9 cm/sec LV V1 mean P.5 mmHg Ao mean P.8 mmHg LV V1 mean: 86.6 cm/sec Ao V2 VTI: 38.3 cm LV V1 VTI: 30.7 cm AV (velocity ratio): 0.80 BRAYDEN(I,D): 1.9 cm2 BRAYDEN(V,D): 1.8 cm2 SV(LVOT): 73.8 ml PA V2 max: 102.2 cm/sec TR max emilie: 264.3 cm/sec TR max P.9 mmHg ECHO/Echo Complete Interpretation Summary Normal LV size. Left ventricular systolic function is normal. The left ventricular ejection fraction is 60 %. The global longitudinal strain is normal. The global longitudinal strain = -19.5 % (normal). Structurally normal valves. Ordering Physician: Andrew Fritz Referring Physician: Andrew Fritz MD Performed By: Balbina Carlos, ANTONIA 08/28/24 1451 Date Andrew Fritz MD CC: Dr. Andrew Fritz MD; Dr. Corinne Panda DO Date Dictated: 08/28/24 1101 Date Transcribed: 08/28/24 1451 Professional Shopper: Signed Normal [facility] T4 Free Directon 08-28-2024 T4 FREE DIRECT 0.87 ng/dL Normal 0.76-1.46 [facility] Comment on above: Performed By: #### L [id number], L506.0400 #### [facility] [address] [place], [address] Thyroid Stim Hormone (TSH)on 08-28-2024 TSH 6.430 uIU/mL High 0.358-3.740 [facility] Comment on above: Performed By: #### L [id number], L506.0400 #### [facility] [address] [place], [address] Endocrinology Visit Reporton 08-21-2024 Endocrinology Visit Report [facility] [address] [place], [place] [address] OFFICE VISIT Date of Service: 08/21/24 MR#: [id number] Acct: [id number] Name: JESSICA ASH Rep #: [id number] : 1945 Provider: Nadira Hill Age/Sex: 79/F Location: [facility] [place] Status: Signed Intake Vital Signs 08/08/24 11:00 08/16/24 15:01 08/21/24 14:37 Height 5 ft 5 in 5 ft 5 in 5 ft 5 in Weight: 175 lb 179 lb 4 oz BMI 29.1 29.8 BP 90/58 L 121/76 H Blood Pressure Location Lt brachial Rt brachial Position Sitting Sitting Respiration 16 Pulse 47 L 50 L Pulse Source Monitor Monitor Pulse Oximetry (%) 95 Oxygen Delivery Method room air Intake Visit Reasons: Adrenal Chief Complaint: Thyroid Is patient in pain?: No Allergies prochlorperazine (From Compazine) Allergy (Severe, Verified 08/08/24 11:07) Anaphylaxis chicken derived Allergy (Unknown, Verified 08/08/24 11:07) unknown egg (eggs) Allergy (Unknown, Verified 08/08/24 11:07) unknown ketorolac (From Toradol) Allergy (Unknown, Verified 08/08/24 11:07) unknown morphine Allergy (Unknown, Verified 08/08/24 11:07) Unknown ondansetron (From Zofran) Allergy (Unknown, Verified 08/08/24 11:07) unknown povidone-iodine (From Betadine) Allergy (Unknown, Verified 08/08/24 11:07) unknown promethazine (From Phenergan) Allergy (Unknown, Verified 08/08/24 11:07) unknown propofol Allergy (Unknown, Verified 08/08/24 11:07) Unknown Sulfa (Sulfonamide Antibiotics) Allergy (Unknown, Verified 08/08/24 11:07) Unknown acetaminophen (From Tylenol) Allergy (Verified 08/08/24 11:07) Rash aspirin Allergy (Verified 08/08/24 11:07) Shortness of breath diphenhydramine (From Benadryl) Allergy (Verified 08/08/24 11:07) Hives Iodinated Contrast Media Allergy (Verified 08/08/24 11:07) Anaphylaxis NSAIDS (Non-Steroidal Anti-Inflamma Allergy (Verified 08/08/24 11:07) Rash cephalexin (From Keflex) Adverse Reaction (Unknown, Verified 08/08/24 11:07) Unknown Cephalosporins Adverse Reaction (Unknown, Verified 08/08/24 11:07) Unknown codeine Adverse Reaction (Unknown, Verified 08/08/24 11:07) Unknown doxycycline Adverse Reaction (Unknown, Verified 08/08/24 11:07) Unknown erythromycin base Adverse Reaction (Unknown, Verified 08/08/24 11:07) Unknown ibuprofen (From Motrin) Adverse Reaction (Unknown, Verified 08/08/24 11:07) Unknown lidocaine Adverse Reaction (Unknown, Verified 08/08/24 11:07) Unknown meperidine Adverse Reaction (Unknown, Verified 08/08/24 11:07) Unknown Penicillins Adverse Reaction (Unknown, Verified 08/08/24 11:07) Unknown ANTIBIOTICS Allergy (Severe, Uncoded 08/08/24 11:07) Anaphylaxis; SOB PAIN MEDICATIONS Allergy (Uncoded 08/08/24 11:07) Rash Medications ???Medication ???Instructions ???Recorded ???Confirmed ???Type euqlltbm-lniuepktk-cung ocort 3.5 otic (ear) PRN 11/14/23 08/21/24 History mg/mL-10,000 unit/mL-1 % ear solution olopatadine 0.1 % eye drops 1 drp ophthalmic (eye) BID PRN 11/14/23 08/21/24 History (Pataday Twice Daily Relief) escitalopram oxalate 20 mg tablet 20 mg PO DAILY 07/16/24 08/21/24 History (Lexapro) lorazepam 0.5 mg tablet 0.5 mg PO BID Anxiety #60 tabs 07/31/24 08/21/24 Rx levothyroxine 50 mcg tablet 100 mcg PO DAILY 08/08/24 08/21/24 History (Synthroid) Have you fallen in the past year?: Yes PFSH Medical History Hypotension JO (generalized anxiety disorder) Anxiety disorder, unspecified Benzodiazepine dependence History of chemical exposure MVP (mitral valve prolapse) Bradycardia RUQ pain Anxiety Depression Former smoker CPAP (continuous positive airway pressure) dependence Sleep apnea COPD (chronic obstructive pulmonary disease) Irregular heart beat Hyperthyroidism Non-smoker Diet-controlled diabetes mellitus Nonrheumatic mitral (valve) prolapse Palpitations Obstructive sleep apnea syndrome Obesity Surgical History History of thoracic surgery History of appendectomy History of cholecystectomy History of hysterectomy Family History Father Cancer throat/lung - worked in [employer] Heart disease Myocardial infarction CAD (coronary artery disease) Mother Congestive heart failure Diabetes Skin cancer COPD (chronic obstructive pulmonary disease) Son Colon cancer Aunt Breast cancer paternal Brother Pancreatic cancer Grandmother Bladder cancer maternal Aunt Lung cancer maternal Social History adopted: No household members: spouse housing: house number of children: 3 current occupational status: retired pets and animals: Yes p (more content not included)... Normal [facility] MR/BMS.BPon 08-16-2024 MR/BMS.BP [address], [address] [place] [address] OFFICE VISIT Date of Service: 08/16/24 MR#: [id number] Acct: [id number] Name: JESSICA ASH Rep #: [id number] : 1945 Provider: Dr. Flakito Overton se, DO Age/Sex: 79/F Location[place] [facility] [place] Status: Signed Intake Vital Signs 05/07/24 13:05 05/29/24 09:33 08/08/24 11:00 08/16/24 15:01 Height 5 ft 5 in 5 ft 5 in 5 ft 5 in 5 ft 5 in BP Intake Visit Reasons: 3 M FU Allergies prochlorperazine (From Compazine) Allergy (Severe, Verified 08/08/24 11:07) Anaphylaxis chicken derived Allergy (Unknown, Verified 08/08/24 11:07) unknown egg (eggs) Allergy (Unknown, Verified 08/08/24 11:07) unknown hydromorphone (From Dilaudid) Allergy (Unknown, Verified 08/08/24 11:07) unknown isopropyl alcohol Allergy (Unknown, Verified 08/08/24 11:07) Unknown ketorolac (From Toradol) Allergy (Unknown, Verified 08/08/24 11:07) unknown morphine Allergy (Unknown, Verified 08/08/24 11:07) Unknown ondansetron (From Zofran) Allergy (Unknown, Verified 08/08/24 11:07) unknown povidone-iodine (From Betadine) Allergy (Unknown, Verified 08/08/24 11:07) unknown promethazine (From Phenergan) Allergy (Unknown, Verified 08/08/24 11:07) unknown propofol Allergy (Unknown, Verified 08/08/24 11:07) Unknown Sulfa (Sulfonamide Antibiotics) Allergy (Unknown, Verified 08/08/24 11:07) Unknown acetaminophen (From Tylenol) Allergy (Verified 08/08/24 11:07) Rash aspirin Allergy (Verified 08/08/24 11:07) Shortness of breath diphenhydramine (From Benadryl) Allergy (Verified 08/08/24 11:07) Hives Iodinated Contrast Media Allergy (Verified 08/08/24 11:07) Anaphylaxis NSAIDS (Non-Steroidal Anti-Inflamma Allergy (Verified 08/08/24 11:07) Rash cephalexin (From Keflex) Adverse Reaction (Unknown, Verified 08/08/24 11:07) Unknown Cephalosporins Adverse Reaction (Unknown, Verified 08/08/24 11:07) Unknown codeine Adverse Reaction (Unknown, Verified 08/08/24 11:07) Unknown doxycycline Adverse Reaction (Unknown, Verified 08/08/24 11:07) Unknown erythromycin base Adverse Reaction (Unknown, Verified 08/08/24 11:07) Unknown ibuprofen (From Motrin) Adverse Reaction (Unknown, Verified 08/08/24 11:07) Unknown lidocaine Adverse Reaction (Unknown, Verified 08/08/24 11:07) Unknown meperidine Adverse Reaction (Unknown, Verified 08/08/24 11:07) Unknown Penicillins Adverse Reaction (Unknown, Verified 08/08/24 11:07) Unknown ANTIBIOTICS Allergy (Severe, Uncoded 08/08/24 11:07) Anaphylaxis; SOB PAIN MEDICATIONS Allergy (Uncoded 08/08/24 11:07) Rash Have you fallen in the past year?: No [facility] Medical History (Updated 08/08/24 @ 11:[address] Andrew Fritz MD) Hypotension JO (generalized anxiety disorder) Anxiety disorder, unspecified Benzodiazepine dependence History of chemical exposure MVP (mitral valve prolapse) Bradycardia RUQ pain Anxiety Depression Former smoker CPAP (continuous positive airway pressure) dependence Sleep apnea COPD (chronic obstructive pulmonary disease) Irregular heart beat Hyperthyroidism Non-smoker Diet-controlled diabetes mellitus Nonrheumatic mitral (valve) prolapse Palpitations Obstructive sleep apnea syndrome Obesity Surgical History History of thoracic surgery History of appendectomy History of cholecystectomy History of hysterectomy Family History Father Cancer throat/lung - worked in [employer] Heart disease Myocardial infarction CAD (coronary artery disease) Mother Congestive heart failure Diabetes Skin cancer COPD (chronic obstructive pulmonary disease) Son Colon cancer Aunt Breast cancer paternal Brother Pancreatic cancer Grandmother Bladder cancer maternal Aunt Lung cancer maternal Social History adopted: No household members: spouse housing: house number of children: 3 current occupational status: retired pets and animals: Yes pets and animals: dog(s) leisure activities: reading and other history of recent travel: No sexually active: No Smoking Status: Former smoker quit date: 10/10/94 pack-years: 62 Tobacco: How many years used: 31 how long ago did patient quit smoking: quit in 1994, smoked 2 ppd x 31 yrs alcohol intake: never substance use type: does not use well-balanced diet: daily or most days caffeine: No eating out: 1-3 times/week during the past year weight has: remained stable what type of physical activity do you participate in: walking frequency: 3-4 times per week duration: 15-30 minutes/day seatbelt use: always do you feel safe at home: Yes HPI History of Present Illness History provided by: patient HPI: Jessica Ash is a 79 year old female who presen (more content not included)... Normal [facility] 12 Lead EKG performed by [facility] on 08-08-2024 12 Lead EKG performed by [facility] [address] [place] [address] 12 Lead EKG performed by [facility] 08/08/24 1100 MR#: [id number] Acct: [id number] Name: JESSICA ASH Rep #: [id number] : 1945 79 From: Andrew Fritz MD Attending Dr: Dr. Andrew Fritz MD Status: DEP A MB Ordering Dr: Andrew Fritz MD Date: 08/08/24 [facility]: [facility] Sex: F C Admitted: BMS/12 Lead EKG performed by [facility] ECG Report Interpretation ---Marked sinus Bradycardia BORDERLINE RHYTHMElectronically signed on 08/11/2024 at 13:55 by Andrew Fritz Software Version [id number] 08/11/24 1357 Date Andrew Fritz MD CC: Dr. Corinne Panda, Date Dictated: 08/08/24 1100 Date Transcribed: 08/08/241099 Professional Shopper: CO Signed Normal [facility] Cardiology Visit Reporton Cardiology Visit Report [facility] [address] [place] [address] OFFICE VISIT Date of Service: 08/08/24 MR#: [id number] Acct: [id number] Name: JESSICA ASH Rep #: [id number] : 1945 Provider: Dr. Andrew Fritz MD Age/Sex: 79/F Location: [facility] Status: Signed HPI HPI History of Present Illness Details: Pleasant 79-year-old lady with a history of reported mitral valve prolapse who presents for an evaluation of generalized fatigue chest heaviness lasting hours a day occasional palpitations and shortness of breath with activity and dizziness. She also has a history of lung carcinoma status post left upper lobe lobectomy in June 2023. She says that she has always been bradycardic was previously seen in the heart group in 2017 and at that time she had a Holter monitor which demonstrated an average heart rate of 53 bpm with a blunted chronotropic response rate ranging from 41-74. She had a transthoracic echocardiogram in 2009 but there was no comment on her mitral valve. She also had a repeat echocardiogram in December of this year and there was no comment on her mitral valve but she says that she has been told in the past that she had mitral valve prolapse. Stress echocardiogram in January 2018 that was the hospital demonstrated that she was able to elevate her heart rate to 113 bpm. She has had no neck pain or jaw pain suggestive of angina. She has just been fatigued. At that time she was seen she was noted to have a resting bradycardia and apparently her heart rate has not changed much. Her physical exam here today demonstrates clear lung donaldson regular rate and rhythm and no pedal edema her electrocardiogram demonstrates sinus bradycardia with a rate of 47 bpm Intake Vital Signs 05/29/24 09:33 08/08/24 11:00 Height 5 ft 5 in 5 ft 5 in Weight: 175 lb BMI 29.1 BP 90/58 L Blood Pressure Location Lt brachial Position Sitting Respiration 16 Pulse 47 L Pulse Source Monitor Intake Visit Reasons: HYPOTENSION (SELF) Volunteer Recruitment Coordinator Required: No Accompanied by: Self Is patient in pain?: No Allergies prochlorperazine (From Compazine) Allergy (Severe, Verified 08/08/24 11:07) Anaphylaxis chicken derived Allergy (Unknown, Verified 08/08/24 11:07) unknown egg (eggs) Allergy (Unknown, Verified 08/08/24 11:07) unknown hydromorphone (From Dilaudid) Allergy (Unknown, Verified 08/08/24 11:07) unknown isopropyl alcohol Allergy (Unknown, Verified 08/08/24 11:07) Unknown ketorolac (From Toradol) Allergy (Unknown, Verified 08/08/24 11:07) unknown morphine Allergy (Unknown, Verified 08/08/24 11:07) Unknown ondansetron (From Zofran) Allergy (Unknown, Verified 08/08/24 11:07) unknown povidone-iodine (From Betadine) Allergy (Unknown, Verified 08/08/24 11:07) unknown promethazine (From Phenergan) Allergy (Unknown, Verified 08/08/24 11:07) unknown propofol Allergy (Unknown, Verified 08/08/24 11:07) Unknown Sulfa (Sulfonamide Antibiotics) Allergy (Unknown, Verified 08/08/24 11:07) Unknown acetaminophen (From Tylenol) Allergy (Verified 08/08/24 11:07) Rash aspirin Allergy (Verified 08/08/24 11:07) Shortness of breath diphenhydramine (From Benadryl) Allergy (Verified 08/08/24 11:07) Hives Iodinated Contrast Media Allergy (Verified 08/08/24 11:07) Anaphylaxis NSAIDS (Non-Steroidal Anti-Inflamma Allergy (Verified 08/08/24 11:07) Rash cephalexin (From Keflex) Adverse Reaction (Unknown, Verified 08/08/24 11:07) Unknown Cephalosporins Adverse Reaction (Unknown, Verified 08/08/24 11:07) Unknown codeine Adverse Reaction (Unknown, Verified 08/08/24 11:07) Unknown doxycycline Adverse Reaction (Unknown, Verified 08/08/24 11:07) Unknown erythromycin base Adverse Reaction (Unknown, Verified 08/08/24 11:07) Unknown ibuprofen (From Motrin) Adverse Reaction (Unknown, Verified 08/08/24 11:07) Unknown lidocaine Adverse Reaction (Unknown, Verified 08/08/24 11:07) Unknown meperidine Adverse Reaction (Unknown, Verified 08/08/24 11:07) Unknown Penicillins Adverse Reaction (Unknown, Verified 08/08/24 11:07) Unknown ANTIBIOTICS Allergy (Severe, Uncoded 08/08/24 11:07) Anaphylaxis; SOB PAIN MEDICATIONS Allergy (Uncoded 08/08/24 11:07) Rash Medications ???Medication ???Instructions ???Recorded ???Confirmed ???Type svctgdoa-mpadqjivr-eifg ocort 3.5 otic (ear) PRN 11/14/23 08/08/24 History mg/mL-10,000 unit/mL-1 % ear solution olopatadine 0.1 % eye drops 1 drp ophthalmic (eye) BID PRN 11/14/23 08/08/24 History (Pataday Twice Daily Relief) escitalopram oxalate 20 mg tablet 20 mg PO DAILY 07/16/24 08/08/24 History (Lexapro) lorazepam 0.5 mg tablet 0.5 mg PO BID Anxiety #60 tabs 07/31/24 08/08/24 Rx levothyroxine 50 mcg tablet 100 mcg PO DAILY 08/08/24 08/08/24 History (Synthroid) Have you fallen in the pa (more content not included)... Normal [facility] Breast Limited Unilateralon 05-30-[address] [facility] Services [address] [place] [address] Breast Limited Unilateral MR#: [id number] Acct: [id number] Name: JESSICA ASH Rep #: [id number] : 1945 F 79 From: Jaime naik MD PCP: Dr. Corinne Panda, Status: [facility] CLI Study: Breast Limited Unilateral Date of Exam: Exam# [id number] Ordering Dr: [place] [id number] STUDY: ULTRASOUND BREAST - LEFT REASON FOR EXAM: Female, 79 years old. Abnormal screening mammogram. TECHNIQUE: Axial and longitudinal images of the LEFT breast were performed with a high resolution ultrasound transducer. # OF IMAGES: 13 COMPARISON: Comparison is made with prior mammogram dated May 25, 2024. FINDINGS: LEFT Breast: The lateral aspect of the left breast was examined. The mammographic abnormality corresponds to a 1 cm x 0.9 cm x 0.3 cm cyst. Adjacent to this, there is a 5 mm x 7 mm x 3 mm cyst at the 3:00 position breast 5 cm from the nipple. US/Breast Limited Unilateral IMPRESSION: The mammographic findings correspond to 2, adjacent cysts. Routine mammographic follow-up recommended. ASSESSMENT CATEGORY: BIRADS Category 2: Benign. A letter regarding these results will be sent to the patient by the facility within 30 days. Electronically Signed: Jaime Michelle MD at 15:47 EDT , CC: Dr. Corinne Panda DO; Dr. Emil Whittington MD Professional Shopper: Signed Normal [facility] Inital Evaluation (1) - PTon 05-29-2024 Inital Evaluation (1) - PT [facility] Physical Therapy [facility] [address] [place] [address] / REHABILITATION SERVICES INITIAL EVALUATION MR#: [id number] Acct: [id number] Name: JESSICA ASH Rep #: [id number] : 1945 79 From: Omar Russell DPT, OCS, CSCS Referring Dr.: Dr. Charly Bruno MD Status: REG RCR Insurance: MEDICARE PART A B AET[employer] SR SUPPLEMENT INS Patient's Visit Information Visit Information Visit Information: JESSICA ASH is a 79 year old F referred to Physical Therapy by Dr. Charly Bruno MD with a diagnosis of thoracic pain and myalgia. Date of Evaluation: 05/29/24 Physical Therapist: Omar Russell DPT, OCS, CSCS Visit Plan Frequency: 2x /Week Duration: 4-6 Weeks Plan: 2x/week x 4-6 start with scar massage to L thoracic incision posteriorly with MH, STM to parapsinals B thoracic and lumbar, move to scap strength Then lb ROM exercises and core strength to HEP then phsyical reconditioning ex to HEP Subjective Subjective: I have mid back pain and b/w scapula down to LB. Had it for years in thoracic. had CA surgery taking L lung out last June and no radiation or chemo. That surgery made her worse. Incisionb is posterior. Pain gets wrose as day goes on and up to 9/10. Cannot take pain meds due to allergies. Not taking anything for it. Dr. Bruno trying to find appropriate ways to treat it. has two spots on breast per mammogram and needs to doctor for that.Some days are better if she is rested but activity always makes her worse. Sleep is not great du pain and has to change positions also. Not employed. Spends day taking care of house and who has CA. Do llaundry and cooking and take care granddaughter who is special needs. Has tens unit and binders which do not helop. Pain back pain: Pain Intensity (Out of 10): 6 Pain Intensity Range: 0 and 9 Objective Objective: Walks into and out of PT slowly with short steps but I, trasnfers chair I, bed trasnfers slow and labored but I. Weak core and pain. Good balance. cervicval AROM ext 40 and rotations 60 B without increased pain. LB AROM ext mod limited and pain, flexion mod limited and pain, SB mod limited and contralateral tightness and pain all in LB. Very little thoracic movement. scarring L posterior upper thoracic is sticking to tissue underneath it and paraspinals are tender through the whole spine. UE and LE AROM WFL. sensation WNL. reflexes 2/3 bi and tri and patella and achilles strength UE 4-/5 without myotomal abnormalities, LE strength without myotomal abnormalities at 3+ in hips and obvious weak core, 4- in knees and ankles. All movements cause discomfort adn fearful of moving. - slump and - SLR Balance/Special Test Scores Oswestry Low Back Score: 23 Goals Goal 1:: Sleep without waking at night due to pain Goal Time Frame: 4-6 Weeks Goal 2:: I appropriate HEP for core strength, LB ROM, general conditioning and scap strength to minimize future problems. Goal Time Frame: 4-6 Weeks Goal 3:: Pain in spine 3.10 at worst aadn 60% improved overall. Goal Time Frame: 4-6 Weeks Goal 4:: oswestry back 9 or less. Goal Time Frame: 4-6 Weeks Rehabilitation Potential Physical Therapy Diagnosis: Pain in spine limiting comfortable funciton Rehabilitation Potential: Fair Anticipated Interventions Patient/Client Instruction: Educate patient on: Condition and Plan of Care For the Purpose of:: To decrease pain, To increase ROM, To improve nutrient delivery to tissue, To improve muscle performance and motor function and To increase tolerance to activity/condition/posi tion Therapeutic Exercise to Include: Strength training, Postural training, Flexibilty training, Passive ROM and Active ROM For the Purpose of:: To decrease pain, To increase ROM, To improve nutrient delivery to tissue and To increase tolerance to activity/condition/posi tion Manual Therapy Techniques to Include: Scar massage, Mobilization and Soft tissue mobilization For the Purpose of:: To decrease pain, To increase ROM, To improve nutrient delivery to tissue and To increase tolerance to activity/condition/posi tion Thermo therapy (hot pack): Yes For the Purpose of:: To improve nutrient delivery to tissue Text: Thank you for the opportunity to evaluate your patient. For Medicare and Medicare HMO plans, please review the plan of care and approve it. It will need to be FAXED BACK to us at [phone] for Medicare purposes. For Medicare only, by signing this I certify the plan of care. Please let me know if there are questions or concerns regarding this plan of care. Physician Signature: Date: 05/29/24 1116 CC: Dr. Corinne Panda DO; Dr. Charly Bruno MD EBG Signed Normal [facility] Pulmonary Visit Reporton Pulmonary Visit Report [facility] Pulmonary Medicine of [address] [place] [address] OFFICE VISIT Date of Service: 05/29/24 MR#: [id number] Acct: [id number] Name: JESSICA ASH Rep #: [id number] : 1945 Provider: SY Michaels Age/Sex: 79/F Location: [facility] Status: Signed Assessment and Plan Assessment and Plan (1) Hypoxia: Status: Chronic Plan: This patient was evaluated for exertional hypoxia today during her office visit. Please see vital signs documented by the nurse. I am able to determine that the patient no longer requires supplemental oxygen on exertion. Recent nocturnal oximetry also indicates that she does not require with sleep. Supplemental oxygen will be discontinued. The patient may follow-up as needed. Orders: Orders Walking Oximetry Today R09.02 - Hypoxemia HPI follow up from missed appt in december 2023 Chief Complaint: Oxygen use HPI Comments Details: This patient presents to the office today for follow-up of her hypoxia complicated by non-small cell carcinoma of the lung. She is ambulatory and currently on room air. She has not recently been seen in the ED or urgent care for any respiratory illness. She has not required any antibiotics or prednisone for any breathing problems. She reports mild shortness of breath on exertion only. Her cough has significantly improved and is almost absent. Occasionally she is able to produce some clear sputum. She denies any wheezing, chest tightness, chest pain or palpitations. She has not had any fever, chills or body aches. She is no longer utilizing supplemental oxygen. She continues following with oncology. She states that recently there was a discovery in her breast and she needs to have a new consultation. Test results personally reviewed with the patient: Overnight oximetry on room air completed on December 22, 2023. The patient is spent 1 minute and 3 seconds equal to or less than 88%. Lowest saturation recorded was 85%. Intake Vital Signs 01/18/24 15:18 05/29/24 09:33 05/29/24 11:55 05/29/24 11:56 05/29/24 11:57 05/29/24 11:58 05/29/24 11:59 05/29/24 12:00 05/29/24 12:01 Height 5 ft 5 in 5 ft 5 in Weight: 178 lb BMI 29.6 BP 115/75 Blood Pressure Location Lt brachial Position Sitting Respiration 18 Pulse 46 L 46 L 59 L 54 L 58 L 57 L 54 L 55 L Pulse Source Monitor Monitor Monitor Monitor Monitor Monitor Monitor Monitor Temp 96.2 F L Temperature Source Temporal Artery Pulse Oximetry (%) 96 93 96 96 94 94 96 96 Oxygen Delivery Method room air room air room air room air room air room air room air room a ir Comment resting 1 minute 2 min 3 min 4 min 5 min 6 min Intake Visit Reasons: follow up from missed appt in december 2023 Chief Complaint: Lung cancer Volunteer Recruitment Coordinator Required: No DME Vendor: [employer] Accompanied by: Self Is patient in pain?: No Allergies prochlorperazine (From Compazine) Allergy (Severe, Verified 05/14/24 15:19) Anaphylaxis acetaminophen (From Tylenol) Allergy (Verified 05/14/24 15:19) Rash aspirin Allergy (Verified 05/14/24 15:19) Shortness of breath diphenhydramine (From Benadryl) Allergy (Verified 05/14/24 15:19) Hives Iodinated Contrast Media Allergy (Verified 05/14/24 15:19) Anaphylaxis NSAIDS (Non-Steroidal Anti-Inflamma Allergy (Verified 05/14/24 15:19) Rash cephalexin (From Keflex) Adverse Reaction (Unknown, Verified 05/14/24 15:19) Unknown Cephalosporins Adverse Reaction (Unknown, Verified 05/14/24 15:19) Unknown codeine Adverse Reaction (Unknown, Verified 05/14/24 15:19) Unknown doxycycline Adverse Reaction (Unknown, Verified 05/14/24 15:19) Unknown erythromycin base Adverse Reaction (Unknown, Verified 05/14/24 15:19) Unknown ibuprofen (From Motrin) Adverse Reaction (Unknown, Verified 05/14/24 15:19) Unknown lidocaine Adverse Reaction (Unknown, Verified 05/14/24 15:19) Unknown meperidine Adverse Reaction (Unknown, Verified 05/14/24 15:19) Unknown Penicillins Adverse Reaction (Unknown, Verified 05/14/24 15:19) Unknown ANTIBIOTICS Allergy (Severe, Uncoded 05/14/24 15:19) Anaphylaxis; SOB PAIN MEDICATIONS Allergy (Uncoded 05/14/24 15:19) Rash Medications ???Medication ???Instructions ???Recorded ???Confirmed ???Type escitalopram oxalate 20 mg tablet 10 mg PO DAILY 09/07/23 05/29/24 History (Lexapro) levothyroxine 50 mcg tablet 100 mcg PO DAILY 11/14/23 05/29/24 History (Synthroid) dmmhjllo-sjrkacyeu-fefx ocort 3.5 otic (ear) PRN 11/14/23 05/29/24 History mg/mL-10,000 unit/mL-1 % ear solution olopatadine 0.1 % eye drops 1 drp ophthalmic (eye) BID PRN 11/14/23 05/29/24 History (Pataday Twice Daily Relief) lorazepam 0.5 mg tablet 0.5 mg PO BID Anxiety #60 tabs 04/23/24 05/29/24 Rx Have you fallen in the past year?: No PFSH (more content not included)... Normal [facility] SCRN MAMM (CAD)W/FIFI BILATo n 05-25-2024 SCRN MAMM (CAD)W/FIFI BILAT [facility] Imaging Services [address] [place] [address] SCRN MAMM (CAD)W/FIFI BILAT MR#: [id number] Acct: [id number] Name: JESSICA ASH Rep #: [id number] : 1945 F 79 From: Jaime naik MD PCP: Dr. Corinne Panda, Status: [facility] Study: SCRN MAMM (CAD)W/FIFI BILAT Date of Exam: 05/10 04/02 Exam# [id number] Ordering Dr: [place] [id number] MAMMOGRAPHY - BILATERAL SCREENING REASON FOR EXAM: Female, 79 years old. Routine annual screening examination. PERTINENT HISTORY: Aunts with breast cancer. TECHNIQUE: Digital bilateral breast fifi (3D mammographic acquisition) in the CC and MLO projections. 2-D mediolateral oblique (MLO) and craniocaudad (CC) views of both breasts were obtained. CAD: Full Field Digital Mammography with Computer Added Detection was performed. COMPARISON: Comparison is made with prior examination dated March 12, 2014 and outside examination dated May 01, 2018. FINDINGS: Breast Composition: The breasts are almost entirely fatty. There are 2, adjacent 6.3 mm well-defined nodules in the deep upper lateral aspect of the left breast. Correlation with ultrasound is recommended. Stable small benign-appearing bilateral axillary lymph nodes. No other significant abnormalities are identified. BI/SCRN MAMM (CAD)W/FIFI BILAT IMPRESSION: There are 2 adjacent, 6.3 mm well-defined nodules in the deep upper lateral aspect of the left breast. Correlation with ultrasound is recommended. ASSESSMENT CATEGORY: BIRADS Category 0: Incomplete. Need additional imaging evaluation. A letter regarding these results will be sent to the patient by the facility within 30 days. Approximately 10% of breast cancers are not detected by mammography. A normal mammogram should not delay biopsy of a clinically suspicious abnormality. [id number] Electronically Signed: Jaime Michelle MD at 14:50 EDT , CC: Dr. Corinne Panda DO; Dr. Emil Whittington MD Professional Shopper: Signed Normal [facility] 02-28-2024 [facility] Telephone (AGCARDPOB ) JESSICA ASH ([id number]) 1945 F Date Time Provider Department 02/28/24 JESSY ROY During your visit today, we recorded the following information about you: Radha Arzate RN 02/28/2024 11:57 AM Signed Left message on voicemail asking pt to reach out to [facility] Centralized Scheduling at [phone] to arrange echo and monitor prior to upcoming 03/09/[address] Roy. If pt cannot have testing completed by OV she is to call [phone] Option 1 to move OV out until after testing. Radha Arzate RN Allergies As of Date: 02/28/2024 Noted Allergy Reaction PROCHLORPERAZINE 07/27/2018 10 - Anaphylaxis Comments: Compazine ACETAMINOPHEN 01/23/2007 2 - Rash Comments: Other reaction(s): Rash ALBUTEROL 08/20/2022 14 - Other: See Comments Comments: heart racing. BP flucuating ASPIRIN 01/23/2007 12 - Shortness of Breath Comments: Other reaction(s): Shortness of breath BETADINE (POVIDONE-IODINE) 01/23/2007 CEPHALEXIN 07/27/2018 16 - Unknown Comments: Other reaction(s): Unknown CODEINE 07/27/2018 16 - Unknown Comments: Other reaction(s): Unknown COMPAZINE (PROCHLORPERAZINE EDISY*09/15/2018 10 - Anaphylaxis DIPHENHYDRAMINE 07/27/2018 4 - Hives Comments: Other reaction(s): Hives DOXYCYCLINE 07/27/2018 16 - Unknown Comments: Other reaction(s): Unknown EGG 09/15/2018 16 - Unknown ERYTHROMYCIN BASE 07/27/2018 16 - Unknown Comments: Other reaction(s): Unknown HYDROMORPHONE 08/20/2022 16 - Unknown IBUPROFEN 07/27/2018 16 - Unknown Comments: Other reaction(s): Unknown KETOROLAC 08/20/2022 12 - Shortness of Breath LATEX 01/23/2007 LIDOCAINE 07/27/2018 7 - Swelling 9 - Itching Comments: Other reaction(s): Unknown MORPHINE 08/20/2022 16 - Unknown NAPROXEN 08/20/2022 16 - Unknown NSAIDS (NON-STEROIDAL ANTI-INFLAM*09/15/2018 10 - Anaphylaxis ONDANSETRON 08/20/2022 16 - Unknown PENICILLINS 07/27/2018 16 - Unknown Comments: Other reaction(s): Unknown PROPOFOL 12/12/2023 14 - Other: See Comments SOAP 01/23/2007 SULFA (SULFONAMIDE ANTIBIOTICS) 08/20/2022 16 - Unknown TRAMADOL 06/01/2023 12 - Shortness of Breath vegetables [Other] 01/23/2007 16 - Unknown Date Reviewed: 01/06/2024 Reviewed by: Jessy Roy MD - Fully Assessed Prescriptions as of 02/28/2024 - gabapentin (NEURONTIN) 100 mg capsule Take 1 capsule by mouth three times a day for 30 days. - levothyroxine (SYNTHROID) 50 mcg tablet Take 3 tablets by mouth once daily. Two tablet at breakfast, pt only takes synthroid not levothyroxine - escitalopram oxalate (LEXAPRO) 20 mg tablet Take 10 mg by mouth once daily. Takes 10 mg (0.5 tablet) daily - neomycin/polymyxin B/hydrocort (FZMBMORJ-ADMKBUXOJ-NI OPHTHALMIC) Use in eyes as directed. - HDWGDSYG-PGRVQBVKT-LECS METH 3.5 MG/ML-10,000 UNIT/ML-0.1% EYE DROPS Use 1 application in both eyes as directed. - olopatadine (PATANOL) 0.1 % ophthalmic solution - lorazepam (ATIVAN) 1 mg ORAL Tab Take 1 mg by mouth three times daily as needed. Problem List As Of Date 02/28/2024 Noted Resolved PALPITATIONS [R00.2] 01/23/2007 Unspecified hypothyroidism [E03.9] 01/23/2007 SHORTNESS OF BREATH [R06.02] 01/23/2007 OBESITY NOS [E66.9] 01/23/2007 Unspecified sleep apnea [G47.30] 01/23/2007 MYALGIA AND MYOSITIS NOS [[id number]] 01/23/2007 Multiple allergies [Z88.9] 09/15/2018 Chronic bilateral thoracic back pain [M54.6, G8*09/15/2018 COVID-19 [U07.1] 08/20/2022 Acute gastritis [K29.00] 08/20/2022 Chest pain [R07.9] 08/20/2022 Chronic obstructive lung disease (HCC) [J44.9] 08/20/2022 Contusion of knee [S80.00XA] 08/20/2022 Diabetes mellitus (HCC) [E11.9] 08/20/2022 Generalized anxiety disorder [F41.1] 08/20/2022 Hypomagnesemia [E83.42] 08/20/2022 Injury of low back [S39.92XA] 08/20/2022 Mass of head [R22.0] 08/20/2022 Mitral valve prolapse [I34.1] 08/20/2022 Pre-syncope [R55] 08/20/2022 Vertigo [R42] 08/20/2022 Adenocarcinoma of left lung (HCC) [C34.92] 06/27/2023 Pre-operative exam [Z01.818] 06/27/2023 S/P lobectomy of lung [Z90.2] 07/04/2023 Obesity, Class I, BMI 30-34.9 [E66.9] 10/18/2023 Encounter Status:Closed by RADHA ARZATE on 02/28/24 [facility] CNPNon 01-18-2024 CNPN Telephone (AGCARDPOB ) JESSICA ASH ([id number]) 1945 F Date Time Provider Department 01/18/24 JESSY ROY AGCARDPOB During your visit today, we recorded the following information about you: Zac Solorio LPN 01/18/2024 1:27 PM Signed Pt called in requesting lab results. [facility] fax number provided. Zac Solorio LPN Allergies As of Date: 01/18/2024 Noted Allergy Reaction PROCHLORPERAZINE 07/27/2018 10 - Anaphylaxis Comments: Compazine ACETAMINOPHEN 01/23/2007 2 - Rash Comments: Other reaction(s): Rash ALBUTEROL 08/20/2022 14 - Other: See Comments Comments: heart racing. BP flucuating ASPIRIN 01/23/2007 12 - Shortness of Breath Comments: Other reaction(s): Shortness of breath BETADINE (POVIDONE-IODINE) 01/23/2007 CEPHALEXIN 07/27/2018 16 - Unknown Comments: Other reaction(s): Unknown CODEINE 07/27/2018 16 - Unknown Comments: Other reaction(s): Unknown COMPAZINE (PROCHLORPERAZINE EDISY*09/15/2018 10 - Anaphylaxis DIPHENHYDRAMINE 07/27/2018 4 - Hives Comments: Other reaction(s): Hives DOXYCYCLINE 07/27/2018 16 - Unknown Comments: Other reaction(s): Unknown EGG 09/15/2018 16 - Unknown ERYTHROMYCIN BASE 07/27/2018 16 - Unknown Comments: Other reaction(s): Unknown HYDROMORPHONE 08/20/2022 16 - Unknown IBUPROFEN 07/27/2018 16 - Unknown Comments: Other reaction(s): Unknown KETOROLAC 08/20/2022 12 - Shortness of Breath LATEX 01/23/2007 LIDOCAINE 07/27/2018 7 - Swelling 9 - Itching Comments: Other reaction(s): Unknown MORPHINE 08/20/2022 16 - Unknown NAPROXEN 08/20/2022 16 - Unknown NSAIDS (NON-STEROIDAL ANTI-INFLAM*09/15/2018 10 - Anaphylaxis ONDANSETRON 08/20/2022 16 - Unknown PENICILLINS 07/27/2018 16 - Unknown Comments: Other reaction(s): Unknown PROPOFOL 12/12/2023 14 - Other: See Comments SOAP 01/23/2007 SULFA (SULFONAMIDE ANTIBIOTICS) 08/20/2022 16 - Unknown TRAMADOL 06/01/2023 12 - Shortness of Breath vegetables [Other] 01/23/2007 16 - Unknown Date Reviewed: 01/06/2024 Reviewed by: Jessy Roy MD - Fully Assessed Reason for Visit: Results [95] Prescriptions as of 04/30/2024 - gabapentin (NEURONTIN) 100 mg capsule Take 1 capsule by mouth three times a day for 30 days. - levothyroxine (SYNTHROID) 50 mcg tablet Take 3 tablets by mouth once daily. Two tablet at breakfast, pt only takes synthroid not levothyroxine - escitalopram oxalate (LEXAPRO) 20 mg tablet Take 10 mg by mouth once daily. Takes 10 mg (0.5 tablet) daily - neomycin/polymyxin B/hydrocort (CQYKPWPN-DQAAJNJTM-WL OPHTHALMIC) Use in eyes as directed. - MSYXNQBU-AFWUSZDVV-SJEE METH 3.5 MG/ML-10,000 UNIT/ML-0.1% EYE DROPS Use 1 application in both eyes as directed. - olopatadine (PATANOL) 0.1 % ophthalmic solution - lorazepam (ATIVAN) 1 mg ORAL Tab Take 1 mg by mouth three times daily as needed. Problem List As Of Date 01/18/2024 Noted Resolved PALPITATIONS [R00.2] 01/23/2007 Unspecified hypothyroidism [E03.9] 01/23/2007 SHORTNESS OF BREATH [R06.02] 01/23/2007 OBESITY NOS [E66.9] 01/23/2007 Unspecified sleep apnea [G47.30] 01/23/2007 MYALGIA AND MYOSITIS NOS [[id number]] 01/23/2007 Multiple allergies [Z88.9] 09/15/2018 Chronic bilateral thoracic back pain [M54.6, G8*09/15/2018 COVID-19 [U07.1] 08/20/2022 Acute gastritis [K29.00] 08/20/2022 Chest pain [R07.9] 08/20/2022 Chronic obstructive lung disease (HCC) [J44.9] 08/20/2022 Contusion of knee [S80.00XA] 08/20/2022 Diabetes mellitus (HCC) [E11.9] 08/20/2022 Generalized anxiety disorder [F41.1] 08/20/2022 Hypomagnesemia [E83.42] 08/20/2022 Injury of low back [S39.92XA] 08/20/2022 Mass of head [R22.0] 08/20/2022 Mitral valve prolapse [I34.1] 08/20/2022 Pre-syncope [R55] 08/20/2022 Vertigo [R42] 08/20/2022 Adenocarcinoma of left lung (HCC) [C34.92] 06/27/2023 Pre-operative exam [Z01.818] 06/27/2023 S/P lobectomy of lung [Z90.2] 07/04/2023 Obesity, Class I, BMI 30-34.9 [E66.9] 10/18/2023 Encounter Status:Closed by ZAC SOLORIO on 04/30/24 [facility] CNJORGEon 01-06-2024 CNOV Office Visit (AGCARDPOB) JESSICA ASH ([id number]) 1945 F Date Time Provider Department 01/06/24 10:20 AM JESSY ROY AGCARDPOB During your visit today, we recorded the following information about you: Pulse Respiration Blood pressure Weight 50/minute 18/minute 112/73 83 kg Height 1.651 m Ltety Flower MA 01/06/2024 10:28 AM Signed SOB Jessy Roy MD 01/06/2024 12:41 PM Signed [facility] Department of Cardiovascular Medicine SECTION OF INTERVENTIONAL CARDIOLOGY OUTPATIENT VISIT DATE 01/06/2024 OUTPATIENT VISIT TYPE NEW PRIMARY CARE PHYSICIAN: Corinne Panda DO [address] [place] [id number] REFERRING PHYSICIAN: SELF CHIEF COMPLAINT: Patient presents with: New Patient HISTORY OF PRESENT ILLNESS: Ms. Ash is a 78 year old female who presents today due to HR and BP variation. She has PMH of the DM, COPD, Lung Cancer(S/P lobectomy adenocarcinoma of the lung no chemo or radiation at this point), hypothyroidism, she came as she mentioned that her HR varies from 40 to 70 and BP some times is low. She denies any dizziness, presyncope or syncope. She just mentioned that she has lack of energy and prefer to stay home and sleep more. I explain to her that we will do event monitor and if HR are low and causing symptoms we need to refer her to EP for pacemaker. She denies any chest pain or SOB. Stress test 06/27/23 was normal without any ischemia Echo 06/16/23 was normal EF and no WMA, no VHD Risk factors for coronary artery disease hyperlipidemia, diabetes She denies chest pain, shortness of breath, lightheadedness, and syncope. PAST CARDIAC HISTORY: None PAST MEDICAL HISTORY Diagnosis Date Adenocarcinoma of left lung (HCC) Benign paroxysmal positional vertigo Bradycardia COPD (chronic obstructive pulmonary disease) (HCC) Diabetes mellitus (HCC) Hypothyroidism IFG (impaired fasting glucose) Lung cancer (HCC) Mitral valve prolapse Myalgia and myositis, unspecified 01/23/2007 Obesity, unspecified 01/23/2007 Palpitations 01/23/2007 S/P lobectomy of lung Shortness of breath 01/23/2007 Sleep apnea Unspecified hypothyroidism 01/23/2007 Unspecified sleep apnea 01/23/2007 PAST SURGICAL HISTORY Procedure Laterality Date CHOLECYSTECTOMY Cholecystectomy LUNG SURGERY HX Left 07/04/[address] [place] [address], [address] dissection PAST SURGICAL HISTORY OF repair of fractured jaw TOTAL ABDOMINAL HYSTERECT W/WO RMVL TUBE OVARY Hysterectomy, BRIANA SOCIAL HISTORY Social History Tobacco Use Smoking status: Former Packs/day: 3.00 Years: 30.00 Additional pack years: 0.00 Total pack years: 90.00 Types: Cigarettes Quit date: 1994 Years since quittin.2 Smokeless tobacco: Never Tobacco comments: quit 1994 Vaping Use Vaping Use: Never used Substance Use Topics Alcohol use: No FAMILY HISTORY Problem Relation Age of Onset Diabetes Mother living at age 87. congestive failure, COPD Heart Father in his 70's, several MD's other (pancreatic cancer [Other]) Brother at age 58 Colon Cancer Son at age 20 ALLERGIES: ALLERGIES Allergen Reactions Prochlorperazine Anaphylaxis Compazine Acetaminophen Rash Other reaction(s): Rash Albuterol Other: See Comments heart racing. BP flucuating Aspirin Shortness of Breath Other reaction(s): Shortness of breath Betadine [Povidone-* Cephalexin Unknown Other reaction(s): Unknown Codeine Unknown Other reaction(s): Unknown Compazine [Prochlor* Anaphylaxis Diphenhydramine Hives Other reaction(s): Hives Doxycycline Unknown Other reaction(s): Unknown Egg Unknown Erythromycin Base Unknown Other reaction(s): Unknown Hydromorphone Unknown Ibuprofen Unknown Other reaction(s): Unknown Ketorolac Shortness of Breath Latex Lidocaine Swelling, Itching Other reaction(s): Unknown Morphine Unknown Naproxen Unknown Nsaids (Non-Steroid* Anaphylaxis Ondansetron Unknown Penicillins Unknown Other reaction(s): Unknown Propofol Other: See Comments Soap Sulfa (Sulfonamide * Unknown Tramadol Shortness of Breath Vegetables [Other] Unknown MEDICATIONS: levothyroxine (SYNTHROID) 50 mcg tablet Take 3 tablets by mouth once daily. Two tablet at breakfast, pt only takes synthroid not levothyroxine escitalopram oxalate (LEXAPRO) 20 mg tablet Take 10 mg by mouth once daily. Takes 10 mg (0.5 tablet) daily neomycin/polymyxin B/hydrocort (MZNYZDZV-JXJEXZXWX-NL OPHTHALMIC) Use in eyes as directed. JXEHEOUP-KEGFBLCEL-RQPM METH 3.5 MG/ML-10,000 UNIT/ML-0.1% EYE DROPS Use 1 application in both eyes as directed. olopatadine (PATANOL) 0.1 % ophthalmic solution lorazepam (ATIVAN) 1 mg ORAL Tab Take 1 mg by mouth three times daily as needed. gabapentin (NEURONTIN) (more content not included)... Normal [facility] XR SPINE THORACIC 2 VIEWSon 12-21-2023 XR SPINE THORACIC 2 VIEWS ORIGINAL EXAMINATION: TWO XRAY VIEWS OF THE THORACIC SPINE 12/21/2023 9:45 am COMPARISON: None. HISTORY: ORDERING SYSTEM PROVIDED HISTORY: Reason for Exam: pain FINDINGS: Mild compound scoliosis of the upper thoracic spine and thoracolumbar junction noted. Vertebral body heights and disc space heights are preserved. There is no acute fracture or destructive bone lesion. Visualized lung donaldson are clear. IMPRESSION: Mild compound scoliosis upper thoracic spine and thoracolumbar junction. Interpreted by: Celio Freeman DO Preliminary Report By: Celio Freeman DO Electronically signed By Celio Freeman DO Dictated Date: 12/21/2023 2:20:51 PM Prelim Date: 12/21/2023 2:21:51 PM Sign Date: 12/21/2023 2:21:51 PM Ordering Provider: EMILY REFERRING Normal [facility] Abhi 11-03-2023 TONIA Telephone (AGRENETTAACC) JESSIAC ASH ([id number]) 1945 F Date Time Provider Department 11/03/23 SHADE RILEY During your visit today, we recorded the following information about you: Estelle Chatman 11/03/2023 2:43 PM Signed Left a VM requesting a return call to verify/update medicare A and B insurance. Allergies As of Date: 11/03/2023 Noted Allergy Reaction PROCHLORPERAZINE 07/27/2018 10 - Anaphylaxis Comments: Compazine ACETAMINOPHEN 01/23/2007 2 - Rash Comments: Other reaction(s): Rash ALBUTEROL 08/20/2022 14 - Other: See Comments Comments: heart racing. BP flucuating ASPIRIN 01/23/2007 12 - Shortness of Breath Comments: Other reaction(s): Shortness of breath BETADINE (POVIDONE-IODINE) 01/23/2007 CEPHALEXIN 07/27/2018 16 - Unknown Comments: Other reaction(s): Unknown CODEINE 07/27/2018 16 - Unknown Comments: Other reaction(s): Unknown COMPAZINE (PROCHLORPERAZINE EDISY*09/15/2018 10 - Anaphylaxis DIPHENHYDRAMINE 07/27/2018 4 - Hives Comments: Other reaction(s): Hives DOXYCYCLINE 07/27/2018 16 - Unknown Comments: Other reaction(s): Unknown EGG 09/15/2018 16 - Unknown ERYTHROMYCIN BASE 07/27/2018 16 - Unknown Comments: Other reaction(s): Unknown HYDROMORPHONE 08/20/2022 16 - Unknown IBUPROFEN 07/27/2018 16 - Unknown Comments: Other reaction(s): Unknown KETOROLAC 08/20/2022 12 - Shortness of Breath LATEX 01/23/2007 LIDOCAINE 07/27/2018 7 - Swelling 9 - Itching Comments: Other reaction(s): Unknown MORPHINE 08/20/2022 16 - Unknown NAPROXEN 08/20/2022 16 - Unknown NSAIDS (NON-STEROIDAL ANTI-INFLAM*09/15/2018 10 - Anaphylaxis ONDANSETRON 08/20/2022 16 - Unknown PENICILLINS 07/27/2018 16 - Unknown Comments: Other reaction(s): Unknown SOAP 01/23/2007 SULFA (SULFONAMIDE ANTIBIOTICS) 08/20/2022 16 - Unknown TRAMADOL 06/01/2023 12 - Shortness of Breath vegetables [Other] 01/23/2007 16 - Unknown Date Reviewed: 10/18/2023 Reviewed by: Xochilt Klein APRN.DRIVER RECRUITER - Fully Assessed Reason for Visit: Appointment [186] Cmt: Appointment/Insurance Prescriptions as of 11/03/2023 - gabapentin (NEURONTIN) 100 mg capsule Take 1 capsule by mouth three times a day for 30 days. - levothyroxine (SYNTHROID) 50 mcg tablet Take 3 tablets by mouth once daily. Two tablet at breakfast, pt only takes synthroid not levothyroxine - escitalopram oxalate (LEXAPRO) 20 mg tablet Take 10 mg by mouth once daily. Takes 10 mg (0.5 tablet) daily - neomycin/polymyxin B/hydrocort (FJEXSMOF-IZHPEDOBH-BK OPHTHALMIC) Use in eyes as directed. - DHHUEJUJ-UUEZNNDQG-GAYE METH 3.5 MG/ML-10,000 UNIT/ML-0.1% EYE DROPS Use 1 application in both eyes as directed. - olopatadine (PATANOL) 0.1 % ophthalmic solution - lorazepam (ATIVAN) 1 mg ORAL Tab Take 1 mg by mouth three times daily as needed. Problem List As Of Date 11/03/2023 Noted Resolved PALPITATIONS [R00.2] 01/23/2007 Unspecified hypothyroidism [E03.9] 01/23/2007 SHORTNESS OF BREATH [R06.02] 01/23/2007 OBESITY NOS [E66.9] 01/23/2007 Unspecified sleep apnea [G47.30] 01/23/2007 MYALGIA AND MYOSITIS NOS [[id number]] 01/23/2007 Multiple allergies [Z88.9] 09/15/2018 Chronic bilateral thoracic back pain [M54.6, G8*09/15/2018 COVID-19 [U07.1] 08/20/2022 Acute gastritis [K29.00] 08/20/2022 Chest pain [R07.9] 08/20/2022 Chronic obstructive lung disease (HCC) [J44.9] 08/20/2022 Contusion of knee [S80.00XA] 08/20/2022 Diabetes mellitus (HCC) [E11.9] 08/20/2022 Generalized anxiety disorder [F41.1] 08/20/2022 Hypomagnesemia [E83.42] 08/20/2022 Injury of low back [S39.92XA] 08/20/2022 Mass of head [R22.0] 08/20/2022 Mitral valve prolapse [I34.1] 08/20/2022 Pre-syncope [R55] 08/20/2022 Vertigo [R42] 08/20/2022 Adenocarcinoma of left lung (HCC) [C34.92] 06/27/2023 Pre-operative exam [Z01.818] 06/27/2023 S/P lobectomy of lung [Z90.2] 07/04/2023 Obesity, Class I, BMI 30-34.9 [E66.9] 10/18/2023 Encounter Status:Closed by ESTELLE CHATMAN on 11/03/23 Normal [facility] CNOVon 10-18-2023 CNOV Office Visit (SEAN CC) JESSICA ASH ([id number]) 1945 F Date Time Provider Department 10/18/23 10:30 AM SHADE RILEY During your visit today, we recorded the following information about you: Pulse Respiration Blood pressure Weight 60/minute 20/minute 120/70 83.8 kg Height 1.664 m Xochilt Klein APRN.CNP 10/18/2023 11:45 AM Addendum You came in to see Dr. Riley today for surgical evaluation of post surgical pain, by reviewing your images/clinical data, Dr. Riley recommend the following: Muscles are tight, continue to find ways to loosen up the muscles. Time will help Continue to follow up with pain management Will start gabapentin (Neurontin) at low dose Ask to send copy of CT results to Dr. Riley's office Thanks for coming in to see us today. Please call us if you have any concerns/questions: [phone] Xochilt Klein APRN.DRIVER RECRUITER Cardiothoracic surgery [employer] Shade Riley MD 10/18/2023 11:59 AM Signed CARDIOTHORACIC SURGERY CONSULT / HANDP SERVICE DATE: 10/18/2023 SERVICE TIME: 11:45 AM Subjective PRIMARY SERVICE: Cardiothoracic Surgery CHIEF COMPLAINT: Persistent postoperative pain HPI: This is a 78 year old f woman status post left upper lobe lobectomy with mediastinal lymph node dissection performed on 07/04/2023 for left upper lobe lung adenocarcinoma. Final pathology consistent with a T2 a N0 lesion. Postop recovery is unremarkable. She has however, had persistent postthoracotomy pain. Describes sensation of muscle tightness, shoulder discomfort, scapular discomfort, numbness, discomfort from the left lateral chest to underneath the left costal margin. She has a very extensive list of allergies to medications. She is not able to tolerate Tylenol, nonsteroidal anti-inflammatory medications, most narcotics with the exception of Dilaudid, topical analgesics etc. She was using Dilaudid for pain control but has weaned herself off of this. She is now being followed in the pain management clinic. TENS unit has been applied with some minor relief. He has no fever, chills, cough, dyspnea etc. She has been seen by oncology and is undergoing routine surveillance; she is not deemed a candidate for any adjuvant therapy. Chest x-ray performed in July at her first postoperative visit was unremarkable showing expected postoperative changes. She is scheduled for routine cancer surveillance CT scan in several weeks. PAST MEDICAL HISTORY Diagnosis Date Adenocarcinoma of left lung (HCC) COPD (chronic obstructive pulmonary disease) (HCC) IFG (impaired fasting glucose) Myalgia and myositis, unspecified 01/23/2007 Obesity, unspecified 01/23/2007 Palpitations 01/23/2007 Shortness of breath 01/23/2007 Unspecified hypothyroidism 01/23/2007 Unspecified sleep apnea 01/23/2007 PAST SURGICAL HISTORY Procedure Laterality Date CHOLECYSTECTOMY Cholecystectomy LUNG SURGERY HX Left 07/04/[address] [address], [address] dissection PAST SURGICAL HISTORY OF repair of fractured jaw TOTAL ABDOMINAL HYSTERECT W/WO RMVL TUBE OVARY Hysterectomy, BRIANA FAMILY HISTORY Problem Relation Age of Onset Diabetes Mother living at age 87. congestive failure, COPD Heart Father in his 70's, several MD's other (pancreatic cancer [Other]) Brother at age 58 Colon Cancer Son at age 20 Social History Tobacco Use Smoking status: Former Packs/day: 3.00 Years: 30.00 Additional pack years: 0.00 Total pack years: 90.00 Types: Cigarettes Quit date: 1994 Years since quittin.0 Smokeless tobacco: Never Tobacco comments: quit 1994 Vaping Use Vaping Use: Never used Substance Use Topics Alcohol use: No (Not in a hospital admission) levothyroxine (SYNTHROID) 50 mcg tablet Take 3 tablets by mouth once daily. Two tablet at breakfast, pt only takes synthroid not levothyroxine escitalopram oxalate (LEXAPRO) 20 mg tablet Take 10 mg by mouth once daily. Takes 10 mg (0.5 tablet) daily neomycin/polymyxin B/hydrocort (CHPQAKOR-KCOXCTKUA-SP OPHTHALMIC) Use in eyes as directed. PADWYBUG-NVBTVUXAF-DXSG METH 3.5 MG/ML-10,000 UNIT/ML-0.1% EYE DROPS Use 1 application in both eyes as directed. olopatadine (PATANOL) 0.1 % ophthalmic solution lorazepam (ATIVAN) 1 mg ORAL Tab Take 1 mg by mouth three times daily as needed. ALLERGIES Allergen Reactions Prochlorperazine Anaphylaxis Compazine Acetaminophen Rash Other reaction(s): Rash Albuterol Other: See Comments heart racing. BP flucuating All Antibiotics [Ot* Other: See Comments Especially Bactrim and PCN All Pain Meds [Othe* Aspirin Shortness of Breath Other reaction(s): Shortness of breath Betadine [Povidone-* Cephalexin Unknown Other reaction(s): Unknown Codeine Unknown Other reaction(s): Unknown Compazine [Prochlor* Anaphylaxis Ct Scan Dye [Other] Anaphylaxis (more content not included)... Normal [facility] Abhi 10-05-2023 TONIA Telephone (ERIKA) JESSICA ASH ([id number]) 1945 F Date Time Provider Department 10/05/23 SHADE RILEY During your visit today, we recorded the following information about you: Theo Marsh LPN 10/05/2023 3:02 PM Signed Patient calling in and left message that she saw Floral Merchandiser who stated that she needed to get a hold of Dr. Riley regarding her pain since it is at post-surgical site. Patient requests return call. Theo Marsh LPN October 05, 2023 3:02 PM Xochilt Klein APRN.TONIA 10/05/2023 3:39 PM Signed S/p lobectomy of left lung 2/[address] Riley on 07/04/23. Returned patients phone call regarding severe pain over incision site radiating up to her shoulder blade and around breast. States she has been having this same pain since surgery. Only time she has relief is with dilaudid as she is allergic to all NSAIDs and acetaminophen, but does not want to continue take narcotics. Has been seeing pulmonary and pain management who both have told her that physical therapy will not relieve this pain. They suggested she be seen by Dr. Riley as there may be adhesions that causing the discomfort. Measures that have been taken to relieve pain are massage, tens unit, heat and cold. Patient states that nothing relieves the pain. When asked about ROM to arm/shoulder, she states that she can only lift it so far d/t pain and tightness. Offered her PT and she stated that it will not help as the other doctors told it wont help relax the muscles. Patient becoming very frustrated and upset. Offered OV with . Patient accepted. Will have front staff arrange visit. Xochilt Klein APRN.Theo Arredondo LPN 10/06/2023 11:40 AM Signed Appointment scheduled 10/18/2023 10:30AM with Dr. Riley. Theo Marsh LPN October 06, 2023 11:40 AM Allergies As of Date: 10/05/2023 Noted Allergy Reaction PROCHLORPERAZINE 07/27/2018 10 - Anaphylaxis Comments: Compazine ACETAMINOPHEN 01/23/2007 2 - Rash Comments: Other reaction(s): Rash ALBUTEROL 08/20/2022 14 - Other: See Comments Comments: heart racing. BP flucuating all antibiotics [Other] 01/23/2007 14 - Other: See Comments Comments: Especially Bactrim and PCN all pain meds [Other] 01/23/2007 ASPIRIN 01/23/2007 12 - Shortness of Breath Comments: Other reaction(s): Shortness of breath BETADINE (POVIDONE-IODINE) 01/23/2007 CEPHALEXIN 07/27/2018 16 - Unknown Comments: Other reaction(s): Unknown CODEINE 07/27/2018 16 - Unknown Comments: Other reaction(s): Unknown COMPAZINE (PROCHLORPERAZINE EDISY*09/15/2018 10 - Anaphylaxis ct scan dye [Other] 01/23/2007 10 - Anaphylaxis DIPHENHYDRAMINE 07/27/2018 4 - Hives Comments: Other reaction(s): Hives DOXYCYCLINE 07/27/2018 16 - Unknown Comments: Other reaction(s): Unknown EGG 09/15/2018 16 - Unknown ERYTHROMYCIN BASE 07/27/2018 16 - Unknown Comments: Other reaction(s): Unknown HYDROMORPHONE 08/20/2022 16 - Unknown IBUPROFEN 07/27/2018 16 - Unknown Comments: Other reaction(s): Unknown KETOROLAC 08/20/2022 12 - Shortness of Breath LATEX 01/23/2007 LIDOCAINE 07/27/2018 7 - Swelling 9 - Itching Comments: Other reaction(s): Unknown MORPHINE 08/20/2022 16 - Unknown NAPROXEN 08/20/2022 16 - Unknown NSAIDS (NON-STEROIDAL ANTI-INFLAM*09/15/2018 10 - Anaphylaxis ONDANSETRON 08/20/2022 16 - Unknown PENICILLINS 07/27/2018 16 - Unknown Comments: Other reaction(s): Unknown SOAP 01/23/2007 SULFA (SULFONAMIDE ANTIBIOTICS) 08/20/2022 16 - Unknown TRAMADOL 06/01/2023 12 - Shortness of Breath vegetables [Other] 01/23/2007 Date Reviewed: 08/02/2023 Reviewed by: Theo Marsh LPN - Fully Assessed Reason for Visit: Patient Update [1234] Requests return call [Other] Prescriptions as of 10/06/2023 - levothyroxine (SYNTHROID) 50 mcg tablet Take 3 tablets by mouth once daily. Two tablet at breakfast, pt only takes synthroid not levothyroxine - escitalopram oxalate (LEXAPRO) 20 mg tablet Take 10 mg by mouth once daily. Takes 10 mg (0.5 tablet) daily - neomycin/polymyxin B/hydrocort (KUVWYNBN-FEATLNSYR-HC OPHTHALMIC) Use in eyes as directed. - IQEAICEM-ANJVCKHGV-TXFM METH 3.5 MG/ML-10,000 UNIT/ML-0.1% EYE DROPS Use 1 application in both eyes as directed. - olopatadine (PATANOL) 0.1 % ophthalmic solution INSTILL 1 DROP INTO BOTH EYES TWICE DAILY NEEDED AT 6-8 HOUR INTERVALS. - lorazepam (ATIVAN) 1 mg ORAL Tab Take 1 mg by mouth three times daily as needed. Problem List As Of Date 10/05/2023 Noted Resolved PALPITATIONS [R00.2] 01/23/2007 Unspecified hypothyroidism [E03.9] 01/23/2007 SHORTNESS OF BREATH [R06.02] 01/23/2007 OBESITY NOS [E66.9] 01/23/2007 Unspecified sleep apnea [G47.30] 01/23/2007 MYALGIA AND MYOSITIS NOS [[id number]] 01/23/2007 Multiple allergies [Z88.9] 09/15/2018 Chronic bilateral thoracic back pain [M54.6, G8*12/0 (more content not included)... Normal [facility] LABORATORYOrdered By: SYSTEM SYSTEM on 09-19-2023 TSH Qn 11.77 m[IU]/L High 0.36 - 3.74 mcIU/mL AO ADM SS TSHon 09-19-2023 TSH Qn 11.77 m[IU]/L High 0.36-3.74 [facility] ([place]) Comment on above: Performed By: #### T #### [address] [address] Basic metabolic 2000 panelon 08-03-2023 Anion gap [Moles/Vol] 14 mmol/L Normal 9-18 [facility] Comment on above: Order Comment: Speci men Type: BLOOD SPECIMEN Ordering Facility: [facility] Address: [address] [place] [address] Performed By: #### 2 4321-2 #### [facility] CLIA [id number] [address] [facility] [address] [id number] [address] [place] Calcium [Mass/Vol] 9.4 mg/dL Normal 8.5-10.2 [facility] Comment on above: Order Comment: Speci men Type: BLOOD SPECIMEN Ordering Facility: [facility] Address: [address] [place] [address] Performed By: #### 2 4321-2 #### [facility] CLIA [id number] [address] [place] [address] [place] Chloride [Moles/Vol] 104 mmol/L Normal 97-105 [facility] Comment on above: Order Comment: Speci men Type: BLOOD SPECIMEN Ordering Facility: [facility] Address: [address] [place] [address] Performed By: #### 2 4321-2 #### [facility] CLIA [id number] [address] [place] [address] [place] CO2 [Moles/Vol] 20 mmol/L Low 22-30 [facility] Comment on above: Order Comment: Speci men Type: BLOOD SPECIMEN Ordering Facility: [facility] Address: [address] [place] [address] Performed By: #### 2 4321-2 #### [facility] CLIA [id number] [address] [place] [address] [place] Creatinine [Mass/Vol] 1.08 mg/dL High 0.58-0.96 [facility] Comment on above: Order Comment: Speci men Type: BLOOD SPECIMEN Ordering Facility: [facility] Address: [address] [place] [address] Performed By: #### 2 4321-2 #### [facility] CLIA [id number] [address] [place] [address] [place] Creatinine and Glomerular filtration rate.predicted panel (S/P/Bld) 53 mL/min/1.73m??? Low >=60 [facility] Comment on above: Order Comment: Speci men Type: BLOOD SPECIMEN Ordering Facility: [facility] Address: [address], [place] [address] Result Comment: Reyna mated Glomerular Filtration Rate (eGFR) is calculated using the 2020 CKD-EPI creatinine equation. This equation utilizes serum creatinine, sex, and age as parameters. The creatinine assay has traceable calibration to isotope dilution-mass spectrometry. Refer to KDIGO guidelines for clinical interpretation. In patients with unstable renal function, e.g. those with acute kidney injury, the eGFR may not accurately reflect actual GFR. Performed By: #### 2 4321-2 #### [facility] CLIA [id number] [address] [place] [address] [place] Glucose [Mass/Vol] 103 mg/dL High 74-99 [facility] Comment on above: Order Comment: Tyesha mason Type: BLOOD SPECIMEN Ordering Facility: [facility] Address: [address] [place] [address] Result Comment: The [place] Diabetes Association (ADA) provides guidance for cutoff values for fasting glucose and random glucose. The ADA defines fasting as no caloric intake for at least 8 hours. Fasting plasma glucose results between 100 to 125 mg/dL indicate increased risk for diabetes (prediabetes). Fasting plasma glucose results greater than or equal to 126 mg/dL meet the criteria for diagnosis of diabetes. In the absence of unequivocal hyperglycemia, results should be confirmed by repeat testing. In a patient with classic symptoms of hyperglycemia or hyperglycemic crisis, random plasma glucose results greater than or equal to 200 mg/dL meet the criteria for diagnosis of diabetes. Reference: Standards of Medical Care in Diabetes 2016, [place] Diabetes Association. Diabetes Care. 2016.39(Suppl 1). Performed By: #### 2 4321-2 #### [facility] CLIA [id number] [address] [place] [address] [place] Potassium [Moles/Vol] 4.5 mmol/L Normal 3.7-5.1 [facility] Comment on above: Order Comment: Tyesha mason Type: BLOOD SPECIMEN Ordering Facility: [facility] Address: [address] [place] [address] Performed By: #### 2 4321-2 #### [facility] CLIA [id number] [address] [place] [id number] [place] Sodium [Moles/Vol] 138 mmol/L Normal 136-144 [facility] Comment on above: Order Comment: Speci men Type: BLOOD SPECIMEN Ordering Facility: [facility] Address: [address] [place] [address] Performed By: #### 2 4321-2 #### [facility] CLIA [id number] [address] [place] [address] [place] Urea nitrogen [Mass/Vol] 30 mg/dL High 7-21 [facility] Comment on above: Order Comment: Speci men Type: BLOOD SPECIMEN Ordering Facility: [facility] Address: [place] [address] Performed By: #### 2 4321-2 #### [facility] CLIA [id number] [address] [place] [address] [place] CBC panel Auto (Bld)on 08-03 Erythrocyte distribution width (RBC) [Ratio] 14.6 % Normal 11.5-15.0 [facility] Comment on above: Order Comment: Speci men Type: BLOOD SPECIMEN Ordering Facility: [facility] Address: [place] [address] Performed By: #### 5 8410-2 #### [id number] [address] [place] [address] [place] Hematocrit (Bld) [Volume fraction] 40.1 % Normal 36.0-46.0 [facility] Comment on above: Order Comment: Speci men Type: BLOOD SPECIMEN Ordering Facility: [facility] Address: [address] [place] [address] Performed By: #### 5 8410-2 #### [id number] [address] [place] [address] [place] Hemoglobin (Bld) [Mass/Vol] 13.1 g/dL Normal 11.5-15.5 [facility] Comment on above: Order Comment: Speci men Type: BLOOD SPECIMEN Ordering Facility: [facility] Address: [address] [place] [address] Performed By: #### 5 8410-2 #### [facility] CLIA [id number] [address] [place] [address] MCH (RBC) [Entitic mass] 28.9 pg Normal 26.0-34.0 [facility] Comment on above: Order Comment: Speci men Type: BLOOD SPECIMEN Ordering Facility: [facility] Address: [address] [place] [address] Performed By: #### 5 8410-2 #### [facility] CLIA [id number] [address] [place] [address] [place] MCHC (RBC) [Mass/Vol] 32.7 g/dL Normal 30.5-36.0 [facility] Comment on above: Order Comment: Speci men Type: BLOOD SPECIMEN Ordering Facility: [facility] Address: [address] [place] [address] Performed By: #### 5 8410-2 #### [facility] CLIA [id number] [address] [place] [address] [place] MCV (RBC) [Entitic vol] 88.5 fL Normal 80.0-100.0 [facility] Comment on above: Order Comment: Speci men Type: BLOOD SPECIMEN Ordering Facility: [facility] Address: [address] Performed By: #### 5 8410-2 #### [facility] CLIA [id number] [address] [place] [address] [place] [facility] [place] Nucleated RBC (Bld) [#/Vol] 10*3/uL Normal <0.01 [facility] Comment on above: Order Comment: Speci men Type: BLOOD SPECIMEN Ordering Facility: [facility] Address: [address] [place] [address] Performed By: #### 5 8410-2 #### [facility] CLIA [id number] [address] [place] [address] [place] Platelet mean volume (Bld) [Entitic vol] 9.9 fL Normal 9.0-12.7 [facility] Comment on above: Order Comment: Speci men Type: BLOOD SPECIMEN Ordering Facility: [facility] Address: [address] [place] [address] Performed By: #### 5 8410-2 #### [facility] CLIA [id number] [address] [place] [address] [place] Platelets (Bld) [#/Vol] 213 10*3/uL Normal 150-400 [facility] Comment on above: Order Comment: Speci men Type: BLOOD SPECIMEN Ordering Facility: [facility] Address: [address] [place] [address] Performed By: #### 5 8410-2 #### [facility] CLIA [id number] [address] [place] [address] [place] RBC (Bld) [#/Vol] 4.53 10*6/uL Normal 3.90-5.20 [facility] Comment on above: Order Comment: Speci men Type: BLOOD SPECIMEN Ordering Facility: [facility] Address: [address] [place] [address] Performed By: #### 5 8410-2 #### [facility] CLIA [id number] [address] [place] [address] [place] WBC (Bld) [#/Vol] 6.70 10*3/uL Normal 3.70-11.00 [facility] Comment on above: Order Comment: Speci men Type: BLOOD SPECIMEN Ordering Facility: [facility] Address: [address] [place] [address] Performed By: #### 5 8410-2 #### [facility] CLIA [id number] [address] [place] [address] [place] XR CHEST 2V FRONTAL/LATon XR CHEST 2V FRONTAL/LAT * * *Final Report* * * DATE OF EXAM: Aug 03 2023 3:11PM [id number] [id number] - XR CHEST 2V FRONTAL/LAT / PROCEDURE REASON: multiple diagnoses * * * * Physician Interpretation * * * * EXAMINATION: CHEST RADIOGRAPH (2 VIEW FRONTAL and LATERAL) CLINICAL HISTORY: Adenocarcinoma of left lung (HCC) S/P lobectomy of lung MQ: [id number]_6 EXAM DATE/TIME: 08/03/2023 3:11 PM COMPARISON: 07/08/2023 RESULT: Lines, tubes, and devices: None. Lungs and pleura: Resolution of opacification/pleural effusion of the left lower chest. Vague density in the right mid, possibly related to known upper lobe nodules. No consolidation. No lung mass. No pleural effusion. No pneumothorax. Cardiomediastinal silhouette: Stable cardiomediastinal silhouette. Bones and soft tissues: Stable. IMPRESSION: As above Professional Shopper: PSCB Transcribe Date/Time: Aug 03 2023 3:16P Dictated by : YG VAIL MD This examination was interpreted and the report reviewed and electronically signed by: YG VAIL MD on Aug 03 2023 3:20PM EST [id number] Normal [facility] CNOVon 08-02-2023 CNOV Office Visit (SEAN CC) JESSICA ASH ([id number]) 1945 F Date Time Provider Department 08/02/23 3:00 PM APRIL VELASQUEZ During your visit today, we recorded the following information about you: Pulse Blood pressure Weight Height 59/minute 112/80 84.5 kg 1.651 m April Velasquez APRN.DRIVER RECRUITER 08/02/2023 4:16 PM Signed HPI: (per Dr. Riley) This is a 78 year old woman referred for evaluation of a left upper lobe nonsmall cell lung cancer and for consideration for resection. She complains of long standing exertional dyspnea. A left upper lobe lesion was identified on CXR. Subsequent CT scans of the chest performed in October and November showing stable 2.3 cm area of consolidation within the left upper lobe with stable central nodular density; no adenopathy; no effusion. PET scanning 04/15 was positive at this site for hypermetabolism with SUV 12.9. A new second hypermetabolic nodule is identified in the left upper lobe laterally and anteriorly, pleural based, measuring 1.6 x 1.1 cm with SUV 4.1. No hypermetabolic mediastinal lymph nodes. There is hypermetabolsim associated with the distal esophagus with SUV 6.8 (felt to be inflammatory). CT guided biopsy is positive for nonsmall cell cancer, favoring adenocarcinoma. Bronchoscopic EBUS evaluation of the mediastinum is negative at stations 11R, 4R, 4L, 7, 11L. Patient underwent left thoracotomy with ROSETTA lobectomy, mediastinal lymph node sampling with Dr. Riley on 07/04/23 which she tolerated without immediate complications. CT was removed 07/08, CXR after removal showed no appearance of new PNX. She discharged home 07/09/23. She was scheduled to see Dr. Riley in office for follow up this afternoon however due to other emergent surgery, patient opted to be seen by myself rather than reschedule with Dr. Riley tomorrow. She presents for 2 week post dc follow up, accompanied by her . Reviewed path showing adenocarcinoma, lymph nodes negative for carcinoma, margins are negative for carcinoma. Interval events: On encounter, pt reports the following: Not doing very good, I don't know why I have so much pain, rated 9/10 located around incisions and radiates up and down left back. She reports only taking one tab dilaudid every evening which is the only relief she gets. She reports breaking out in sweat for past few days then gets chilled when the cold air hits me. She reports having a UTI and being discharged with Rx for antibiotic when she went to freestanding ER 07/13 for fall from bed at home, which she states she was never able to strip picker and UTI went away on own drinking water as reportedly UA checked yesterday was negative. She reports the following: Fever/chills: denies fever Dizziness/lightheadedne ss/syncope: denies Chest pain/palpitations: denies Incisional pain: surrounding incision, 06/19, I cut myself to one dose a dilaudid and that's the only relief I get, tried hot/cold compresses. I feel like it's a little bit better, I make myself move more. Any drainage from site: denies SOB/cough: when I exert, I get SOB, fine at rest, I force myself to do a load of laundry, denies lifting more than 10# Activity/Ambulation/Sta irs: has been walking and doing steps Appetite: I think I've lost 9-10 pounds, prior to surgery was 193#, 186# today at OV, reports eating what I can, I get full so fast, and I get a lot of gas, reports eating protein daily N/V/D/C/abdominal pain: denies Leg swelling: denies Sleep: distorted due to uncomfortableness and pain Now reports no UTI symptoms Subjective: Current Outpatient Medications Medication Sig escitalopram oxalate (LEXAPRO) 20 mg tablet Take 10 mg by mouth once daily. Takes 10 mg (0.5 tablet) daily neomycin/polymyxin B/hydrocort ([id number] OPHTHALMIC) Use in eyes as directed. [id number]-[id number] METH 3.5 MG/ML-10,000 UNIT/ML-0.1% EYE DROPS Use 1 application in both eyes as directed. olopatadine (PATANOL) 0.1 % ophthalmic solution INSTILL 1 DROP INTO BOTH EYES TWICE DAILY NEEDED AT 6-8 HOUR INTERVALS. levothyroxine (SYNTHROID) 50 mcg tablet Take 50 mcg by mouth. Two tablet at breakfast, pt only takes synthroid not levothyroxine lorazepam (ATIVAN) 1 mg ORAL Tab Take 1 mg by mouth three times daily as needed. No current facility-administered medications for this visit. Prochlorperazine, Acetaminophen, Albuterol, All Antibiotics [Other], All Pain Meds [Other], Aspirin, Betadine [Povidone-Iodine], Cephalexin, Codeine, Compazine [Prochlorperazine Edisylate], Ct Scan Dye [Other], Diphenhydramine, Doxycycline, Egg, Erythromycin Base, Hydromorphone, Ibuprofen, Ketorolac, Latex, Lidocaine, Morphine, Naproxen, Nsaids (Non-Steroidal Anti-Inflammatory Drug), Ondansetron, Penicillins, Soap, Sulfa (Sulfonamide Antibiotics), Tramadol, and Vegetables [Other] (more content not included)... Normal [facility] 08-02-2023 TONIAN Telephone (AGVASACC) JESSICA ASH ([id number]) 1945 F Date Time Provider Department 08/02/23 SHADE RILEY During your visit today, we recorded the following information about you: Jose Cruz Martinez 08/02/2023 3:31 PM Addendum [facility] ph [phone] fax [phone] / [address] [facility] [address] [place] [phone] Spoke with office to refer pt for post operative pain s/p 07/04/23 ROSETTA lung resection, multiple complex allergy history. They requested records be faxed once received and reviewed they will call pt directly to schedule. Records faxed 08/02/23 3:30pm confirmation received Allergies As of Date: 08/02/2023 Noted Allergy Reaction PROCHLORPERAZINE 07/27/2018 10 - Anaphylaxis Comments: Compazine ACETAMINOPHEN 01/23/2007 2 - Rash Comments: Other reaction(s): Rash ALBUTEROL 08/20/2022 14 - Other: See Comments Comments: heart racing. BP flucuating all antibiotics [Other] 01/23/2007 14 - Other: See Comments Comments: Especially Bactrim and PCN all pain meds [Other] 01/23/2007 ASPIRIN 01/23/2007 12 - Shortness of Breath Comments: Other reaction(s): Shortness of breath BETADINE (POVIDONE-IODINE) 01/23/2007 CEPHALEXIN 07/27/2018 16 - Unknown Comments: Other reaction(s): Unknown CODEINE 07/27/2018 16 - Unknown Comments: Other reaction(s): Unknown COMPAZINE (PROCHLORPERAZINE EDISY*09/15/2018 10 - Anaphylaxis ct scan dye [Other] 01/23/2007 10 - Anaphylaxis DIPHENHYDRAMINE 07/27/2018 4 - Hives Comments: Other reaction(s): Hives DOXYCYCLINE 07/27/2018 16 - Unknown Comments: Other reaction(s): Unknown EGG 09/15/2018 16 - Unknown ERYTHROMYCIN BASE 07/27/2018 16 - Unknown Comments: Other reaction(s): Unknown HYDROMORPHONE 08/20/2022 16 - Unknown IBUPROFEN 07/27/2018 16 - Unknown Comments: Other reaction(s): Unknown KETOROLAC 08/20/2022 12 - Shortness of Breath LATEX 01/23/2007 LIDOCAINE 07/27/2018 7 - Swelling 9 - Itching Comments: Other reaction(s): Unknown MORPHINE 08/20/2022 16 - Unknown NAPROXEN 08/20/2022 16 - Unknown NSAIDS (NON-STEROIDAL ANTI-INFLAM*09/15/2018 10 - Anaphylaxis ONDANSETRON 08/20/2022 16 - Unknown PENICILLINS 07/27/2018 16 - Unknown Comments: Other reaction(s): Unknown SOAP 01/23/2007 SULFA (SULFONAMIDE ANTIBIOTICS) 08/20/2022 16 - Unknown TRAMADOL 06/01/2023 12 - Shortness of Breath vegetables [Other] 01/23/2007 Date Reviewed: 08/02/2023 Reviewed by: Theo Marsh LPN - Fully Assessed Reason for Visit: Referral Information [4063] Prescriptions as of 08/02/2023 - escitalopram oxalate (LEXAPRO) 20 mg tablet Take 10 mg by mouth once daily. Takes 10 mg (0.5 tablet) daily - neomycin/polymyxin B/hydrocort ([id number] OPHTHALMIC) Use in eyes as directed. - DZLYUEOO-PSFFGELWG-PUNR METH 3.5 MG/ML-10,000 UNIT/ML-0.1% EYE DROPS Use 1 application in both eyes as directed. - olopatadine (PATANOL) 0.1 % ophthalmic solution INSTILL 1 DROP INTO BOTH EYES TWICE DAILY NEEDED AT 6-8 HOUR INTERVALS. - levothyroxine (SYNTHROID) 50 mcg tablet Take 50 mcg by mouth. Two tablet at breakfast, pt only takes synthroid not levothyroxine - lorazepam (ATIVAN) 1 mg ORAL Tab Take 1 mg by mouth three times daily as needed. Problem List As Of Date 08/02/2023 Noted Resolved PALPITATIONS [R00.2] 01/23/2007 Unspecified hypothyroidism [E03.9] 01/23/2007 SHORTNESS OF BREATH [R06.02] 01/23/2007 OBESITY NOS [E66.9] 01/23/2007 Unspecified sleep apnea [G47.30] 01/23/2007 MYALGIA AND MYOSITIS NOS [MBY9290] 01/23/2007 Multiple allergies [Z88.9] 09/15/2018 Chronic bilateral thoracic back pain [M54.6, G8*09/15/2018 COVID-19 [U07.1] 08/20/2022 Acute gastritis [K29.00] 08/20/2022 Chest pain [R07.9] 08/20/2022 Chronic obstructive lung disease (HCC) [J44.9] 08/20/2022 Contusion of knee [S80.00XA] 08/20/2022 Diabetes mellitus (HCC) [E11.9] 08/20/2022 Generalized anxiety disorder [F41.1] 08/20/2022 Hypomagnesemia [E83.42] 08/20/2022 Injury of low back [S39.92XA] 08/20/2022 Mass of head [R22.0] 08/20/2022 Mitral valve prolapse [I34.1] 08/20/2022 Pre-syncope [R55] 08/20/2022 Vertigo [R42] 08/20/2022 Adenocarcinoma of left lung (HCC) [C34.92] 06/27/2023 Pre-operative exam [Z01.818] 06/27/2023 S/P lobectomy of lung [Z90.2] 07/04/2023 Encounter Status:Closed by JOSE CRUZ MARTINEZ on 08/02/23 Normal [facility] .Urinalysis Microscopic (AO) on 08-01-2023 UA Bacteria Trace Abnormal [facility] ([place] Comment on above: Performed By: #### U A, UAMICAO #### [address] [address] UA Mucous Trace Normal [facility] ([place] Comment on above: Performed By: #### U A, UAMICAO #### [address] [address] UA RBC None Seen Normal None Seen [facility] ([place] Comment on above: Performed By: #### U A, UAMICAO #### [address] [address] UA Squam Epithelial 0-5 Abnormal None Seen Count includes the [facility] ([place]) Comment on above: Performed By: #### U A, UAMICAO #### [address] [address] UA WBC 10-15 Abnormal None Seen [facility] ([place] Comment on above: Performed By: #### U A, UAMICAO #### [place] [phone] LABORATORYOrdered By: Gato Rosa on 08-01-2023 Appearance (U) Slightly Cloudy *ABN* (08/01/23 4:23 PM) Invalid Interpretation Code Clear AO Auto Urine SS Bacteria LM.HPF (Urine sed) [#/Area] Trace /HPF Invalid Interpretation Code AO Auto Urine SS Bilirubin Ql (U) Negative (08/01/23 4:23 PM) Invalid Interpretation Code Negative AO Auto Urine SS Color (U) Yellow (08/01/23 4:23 PM) Invalid Interpretation Code AO Auto Urine SS Glucose Test strip (U) [Mass/Vol] Negative Invalid Interpretation Code Negative AO Auto Urine SS Hemoglobin Auto test strip (U) [Mass/Vol] Trace *ABN* (08/01/23 4:23 PM) Invalid Interpretation Code Negative AO Auto Urine SS Ketones Ql (U) Negative Invalid Interpretation Code Negative AO Auto Urine SS UA Leuk Est Trace *ABN* (08/01/23 4:23 PM) Invalid Interpretation Code Negative AO Auto Urine SS UA Mucous Trace /HPF Invalid Interpretation Code AO Auto Urine SS UA Nitrite Negative (08/01/23 4:23 PM) Invalid Interpretation Code Negative AO Auto Urine SS UA pH 5.5 (08/01/23 4:23 PM) Invalid Interpretation Code 5.0 - 8.0 AO Auto Urine SS UA Protein Negative Invalid Interpretation Code Negative AO Auto Urine SS UA RBC None Seen /HPF Invalid Interpretation Code None Seen AO Auto Urine SS UA Spec Grav >=1.030 *ABN* (08/01/23 4:23 PM) Invalid Interpretation Code 1.015-1.025 AO Auto Urine SS UA Specimen Type Void (08/01/23 4:23 PM) Invalid Interpretation Code AO Auto Urine SS UA Squam Epithelial 0-5 /HPF Invalid Interpretation Code None Seen AO Auto Urine SS UA Urobilinogen 0.2 E.U./dL Invalid Interpretation Code 0.2-1.0 AO Auto Urine SS WBC LM.HPF (Urine sed) [#/Area] 10-15 /HPF Invalid Interpretation Code None Seen AO Auto Urine SS LABORATORYOrdered By: SYSTEM SYSTEM on 08-01-2023 TSH Qn 12.07 m[IU]/L Invalid Interpretation Code 0.36 - 3.74 mcIU/mL AO ADM SS TSHon 08-01-2023 TSH Qn 12.07 m[IU]/L High 0.36-3.74 [facility] ([place] Comment on above: Performed By: #### T SHERRON, CBC, ANEU, ROSAMARIA MONK, GFR, CMP #### [address] [address] UAon 08-01-2023 Color (U) Yellow Normal [facility] ([place] Comment on above: Performed By: #### U A, UAMICAO #### [address] [address] Glucose (U) [Mass/Vol] Negative Normal Negative [facility] ([place]) Comment on above: Performed By: #### U A, UAMICAO #### [address] [address] Ketones Ql (U) Negative Normal Negative [facility] ([place] Comment on above: Performed By: #### U A, UAMICAO #### [address] [address] UA Appear Slightly Cloudy Abnormal Clear [facility] ([place] Comment on above: Performed By: #### U A, UAMICAO #### [place] [address] UA Blood Trace Abnormal Negative [facility] ([place] Comment on above: Performed By: #### U A, UAMICAO #### [place] [address] UA Leuk Est Trace Abnormal Negative [facility] ([place] Comment on above: Performed By: #### U A, UAMICAO #### [place] [address] UA Nitrite Negative Normal Negative [facility] ([place] Comment on above: Performed By: #### U A, UAMICAO #### [place] [address] UA pH 5.5 Normal 5.0 - 8.0 [facility] ([place] Comment on above: Performed By: #### U A, UAMICAO #### [place] [address] UA Protein Negative Normal Negative [facility] ([place] Comment on above: Performed By: #### U A, UAMICAO #### [place] [address] UA Spec Grav >=1.030 Abnormal 1.015-1.025 [facility] ([place] Comment on above: Performed By: #### U A, UAMICAO #### [place] [address] UA Specimen Type Void Normal [facility] Later [facility] ([place]) Comment on above: Performed By: #### U A, UAMICAO #### [place] [address] UA Urobilinogen 0.2 E.U./dL Normal 0.2-1.0 [facility]ly [facility], [facility] ([place]) Comment on above: Performed By: #### U A, UAMICAO #### [place] [address] Urobilinogen (U) [Mass/Vol] Negative Normal Negative [facility], [facility] ([place]) Comment on above: Performed By: #### U LEILA Becerra #### [address] [address] Abhi 07-28-2023 TOSIN Telephone (SPAGWO) JESSICA ASH ([id number]) 1945 F Date Time Provider Department 07/28/23 PREBISHOLEG During your visit today, we recorded the following information about you: Mirella Garrison 07/28/2023 3:13 PM Signed Received referral from Warren Mendes APRN.[facility] to schedule patient for S/P lobectomy of lung [Z90.2] Confirmed with [facility] [employer] that we do not treat for management of pain medication post surgery. Spoke with patient and advised of this. Patient will follow up with referring provider. Mirella Garrison Allergies As of Date: 07/28/2023 Noted Allergy Reaction PROCHLORPERAZINE 07/27/2018 10 - Anaphylaxis Comments: Compazine ACETAMINOPHEN 01/23/2007 2 - Rash Comments: Other reaction(s): Rash ALBUTEROL 08/20/2022 14 - Other: See Comments Comments: heart racing. BP flucuating all antibiotics [Other] 01/23/2007 14 - Other: See Comments Comments: Especially Bactrim and PCN all pain meds [Other] 01/23/2007 ASPIRIN 01/23/2007 12 - Shortness of Breath Comments: Other reaction(s): Shortness of breath BETADINE (POVIDONE-IODINE) 01/23/2007 CEPHALEXIN 07/27/2018 16 - Unknown Comments: Other reaction(s): Unknown CODEINE 07/27/2018 16 - Unknown Comments: Other reaction(s): Unknown COMPAZINE (PROCHLORPERAZINE EDISY*09/15/2018 10 - Anaphylaxis ct scan dye [Other] 01/23/2007 10 - Anaphylaxis DIPHENHYDRAMINE 07/27/2018 4 - Hives Comments: Other reaction(s): Hives DOXYCYCLINE 07/27/2018 16 - Unknown Comments: Other reaction(s): Unknown EGG 09/15/2018 16 - Unknown ERYTHROMYCIN BASE 07/27/2018 16 - Unknown Comments: Other reaction(s): Unknown HYDROMORPHONE 08/20/2022 16 - Unknown IBUPROFEN 07/27/2018 16 - Unknown Comments: Other reaction(s): Unknown KETOROLAC 08/20/2022 12 - Shortness of Breath LATEX 01/23/2007 LIDOCAINE 07/27/2018 7 - Swelling 9 - Itching Comments: Other reaction(s): Unknown MORPHINE 08/20/2022 16 - Unknown NAPROXEN 08/20/2022 16 - Unknown NSAIDS (NON-STEROIDAL ANTI-INFLAM*09/15/2018 10 - Anaphylaxis ONDANSETRON 08/20/2022 16 - Unknown PENICILLINS 07/27/2018 16 - Unknown Comments: Other reaction(s): Unknown SOAP 01/23/2007 SULFA (SULFONAMIDE ANTIBIOTICS) 08/20/2022 16 - Unknown TRAMADOL 06/01/2023 12 - Shortness of Breath vegetables [Other] 01/23/2007 Date Reviewed: 07/08/2023 Reviewed by: Iram Lr, ZEN - Fully Assessed Reason for Visit: New Patient [172] Prescriptions as of 07/28/2023 - HYDROmorphone 2 mg tablet Take 0.5 tablets by mouth every 6 hours as needed for up to 5 days. - escitalopram oxalate (LEXAPRO) 20 mg tablet Take 10 mg by mouth once daily. Takes 10 mg (0.5 tablet) daily - neomycin/polymyxin B/hydrocort (LNHNKIBH-REIGNACLX-YZ OPHTHALMIC) Use in eyes as directed. - ESAUQMDV-SGCBLQAOU-QZUU METH 3.5 MG/ML-10,000 UNIT/ML-0.1% EYE DROPS Use 1 application in both eyes as directed. - olopatadine (PATANOL) 0.1 % ophthalmic solution INSTILL 1 DROP INTO BOTH EYES TWICE DAILY NEEDED AT 6-8 HOUR INTERVALS. - levothyroxine (SYNTHROID) 50 mcg tablet Take 50 mcg by mouth. Two tablet at breakfast, pt only takes synthroid not levothyroxine - lorazepam (ATIVAN) 1 mg ORAL Tab Take 1 mg by mouth three times daily as needed. Problem List As Of Date 07/28/2023 Noted Resolved PALPITATIONS [R00.2] 01/23/2007 Unspecified hypothyroidism [E03.9] 01/23/2007 SHORTNESS OF BREATH [R06.02] 01/23/2007 OBESITY NOS [E66.9] 01/23/2007 Unspecified sleep apnea [G47.30] 01/23/2007 MYALGIA AND MYOSITIS NOS [[id number]] 01/23/2007 Multiple allergies [Z88.9] 09/15/2018 Chronic bilateral thoracic back pain [M54.6, G8*09/15/2018 COVID-19 [U07.1] 08/20/2022 Acute gastritis [K29.00] 08/20/2022 Chest pain [R07.9] 08/20/2022 Chronic obstructive lung disease (HCC) [J44.9] 08/20/2022 Contusion of knee [S80.00XA] 08/20/2022 Diabetes mellitus (HCC) [E11.9] 08/20/2022 Generalized anxiety disorder [F41.1] 08/20/2022 Hypomagnesemia [E83.42] 08/20/2022 Injury of low back [S39.92XA] 08/20/2022 Mass of head [R22.0] 08/20/2022 Mitral valve prolapse [I34.1] 08/20/2022 Pre-syncope [R55] 08/20/2022 Vertigo [R42] 08/20/2022 Adenocarcinoma of left lung (HCC) [C34.92] 06/27/2023 Pre-operative exam [Z01.818] 06/27/2023 S/P lobectomy of lung [Z90.2] 07/04/2023 Encounter Status:Closed by MIRELLA GARRISON on 07/28/23 [facility] Abhi 07-27-2023 TONIAN Telephone (AGVASACC) DYE,JESSICA KENIA ([id number]) 1945 F Date Time Provider Department 07/27/23 SHADE RILEY During your visit today, we recorded the following information about you: Gerardo Vázquez 07/27/2023 1:00 PM Signed LMOM to patient Warren Mendes APRN.DRIVER RECRUITER Gerardo Vázquez Offer tomorrow afteroon saranya to patient is she wants to take it please. Allergies As of Date: 07/27/2023 Noted Allergy Reaction PROCHLORPERAZINE 07/27/2018 10 - Anaphylaxis Comments: Compazine ACETAMINOPHEN 01/23/2007 2 - Rash Comments: Other reaction(s): Rash ALBUTEROL 08/20/2022 14 - Other: See Comments Comments: heart racing. BP flucuating all antibiotics [Other] 01/23/2007 14 - Other: See Comments Comments: Especially Bactrim and PCN all pain meds [Other] 01/23/2007 ASPIRIN 01/23/2007 12 - Shortness of Breath Comments: Other reaction(s): Shortness of breath BETADINE (POVIDONE-IODINE) 01/23/2007 CEPHALEXIN 07/27/2018 16 - Unknown Comments: Other reaction(s): Unknown CODEINE 07/27/2018 16 - Unknown Comments: Other reaction(s): Unknown COMPAZINE (PROCHLORPERAZINE EDISY*09/15/2018 10 - Anaphylaxis ct scan dye [Other] 01/23/2007 10 - Anaphylaxis DIPHENHYDRAMINE 07/27/2018 4 - Hives Comments: Other reaction(s): Hives DOXYCYCLINE 07/27/2018 16 - Unknown Comments: Other reaction(s): Unknown EGG 09/15/2018 16 - Unknown ERYTHROMYCIN BASE 07/27/2018 16 - Unknown Comments: Other reaction(s): Unknown HYDROMORPHONE 08/20/2022 16 - Unknown IBUPROFEN 07/27/2018 16 - Unknown Comments: Other reaction(s): Unknown KETOROLAC 08/20/2022 12 - Shortness of Breath LATEX 01/23/2007 LIDOCAINE 07/27/2018 7 - Swelling 9 - Itching Comments: Other reaction(s): Unknown MORPHINE 08/20/2022 16 - Unknown NAPROXEN 08/20/2022 16 - Unknown NSAIDS (NON-STEROIDAL ANTI-INFLAM*09/15/2018 10 - Anaphylaxis ONDANSETRON 08/20/2022 16 - Unknown PENICILLINS 07/27/2018 16 - Unknown Comments: Other reaction(s): Unknown SOAP 01/23/2007 SULFA (SULFONAMIDE ANTIBIOTICS) 08/20/2022 16 - Unknown TRAMADOL 06/01/2023 12 - Shortness of Breath vegetables [Other] 01/23/2007 Date Reviewed: 07/08/2023 Reviewed by: Iram Lr RN - Fully Assessed Reason for Visit: Appointment [186] Cmt: Offer Sooner Prescriptions as of 07/27/2023 - HYDROmorphone 2 mg tablet Take 0.5 tablets by mouth every 6 hours as needed for up to 5 days. - escitalopram oxalate (LEXAPRO) 20 mg tablet Take 10 mg by mouth once daily. Takes 10 mg (0.5 tablet) daily - neomycin/polymyxin B/hydrocort (GHFOJLYW-SZESJNGEQ-TZ OPHTHALMIC) Use in eyes as directed. - QTWAYZYV-ZCKQFMSII-ADXZ METH 3.5 MG/ML-10,000 UNIT/ML-0.1% EYE DROPS Use 1 application in both eyes as directed. - olopatadine (PATANOL) 0.1 % ophthalmic solution INSTILL 1 DROP INTO BOTH EYES TWICE DAILY NEEDED AT 6-8 HOUR INTERVALS. - levothyroxine (SYNTHROID) 50 mcg tablet Take 50 mcg by mouth. Two tablet at breakfast, pt only takes synthroid not levothyroxine - lorazepam (ATIVAN) 1 mg ORAL Tab Take 1 mg by mouth three times daily as needed. Problem List As Of Date 07/27/2023 Noted Resolved PALPITATIONS [R00.2] 01/23/2007 Unspecified hypothyroidism [E03.9] 01/23/2007 SHORTNESS OF BREATH [R06.02] 01/23/2007 OBESITY NOS [E66.9] 01/23/2007 Unspecified sleep apnea [G47.30] 01/23/2007 MYALGIA AND MYOSITIS NOS [[id number]] 01/23/2007 Multiple allergies [Z88.9] 09/15/2018 Chronic bilateral thoracic back pain [M54.6, G8*09/15/2018 COVID-19 [U07.1] 08/20/2022 Acute gastritis [K29.00] 08/20/2022 Chest pain [R07.9] 08/20/2022 Chronic obstructive lung disease (HCC) [J44.9] 08/20/2022 Contusion of knee [S80.00XA] 08/20/2022 Diabetes mellitus (HCC) [E11.9] 08/20/2022 Generalized anxiety disorder [F41.1] 08/20/2022 Hypomagnesemia [E83.42] 08/20/2022 Injury of low back [S39.92XA] 08/20/2022 Mass of head [R22.0] 08/20/2022 Mitral valve prolapse [I34.1] 08/20/2022 Pre-syncope [R55] 08/20/2022 Vertigo [R42] 08/20/2022 Adenocarcinoma of left lung (HCC) [C34.92] 06/27/2023 Pre-operative exam [Z01.818] 06/27/2023 S/P lobectomy of lung [Z90.2] 07/04/2023 Encounter Status:Closed by GERARDO VÁZQUEZ on 07/27/23 [facility] Abhi 07-25-2023 TONIAN Telephone (ERIKA) JESSICA ASH ([id number]) 1945 F Date Time Provider Department 07/25/23 SHADE RILEY During your visit today, we recorded the following information about you: Theo Marsh LPN 07/25/2023 4:55 PM Signed Patient calling in and left message that she has appointment next week 08/02/2023 that was rescheduled because Dr. Riley will be out on 08/03/2023. Patient asking if medications can be Ordered so she doesn't run out before her appointment. This Nurse see's no medications that should be Ordered but wanted to verify. Theo Marsh LPN July 25, 2023 4:54 PM Theo Marsh LPN 07/26/2023 8:47 AM Signed Patient notified. Theo Marsh LPN July 26, 2023 8:47 AM Allergies As of Date: 07/25/2023 Noted Allergy Reaction PROCHLORPERAZINE 07/27/2018 10 - Anaphylaxis Comments: Compazine ACETAMINOPHEN 01/23/2007 2 - Rash Comments: Other reaction(s): Rash ALBUTEROL 08/20/2022 14 - Other: See Comments Comments: heart racing. BP flucuating all antibiotics [Other] 01/23/2007 14 - Other: See Comments Comments: Especially Bactrim and PCN all pain meds [Other] 01/23/2007 ASPIRIN 01/23/2007 12 - Shortness of Breath Comments: Other reaction(s): Shortness of breath BETADINE (POVIDONE-IODINE) 01/23/2007 CEPHALEXIN 07/27/2018 16 - Unknown Comments: Other reaction(s): Unknown CODEINE 07/27/2018 16 - Unknown Comments: Other reaction(s): Unknown COMPAZINE (PROCHLORPERAZINE EDISY*09/15/2018 10 - Anaphylaxis ct scan dye [Other] 01/23/2007 10 - Anaphylaxis DIPHENHYDRAMINE 07/27/2018 4 - Hives Comments: Other reaction(s): Hives DOXYCYCLINE 07/27/2018 16 - Unknown Comments: Other reaction(s): Unknown EGG 09/15/2018 16 - Unknown ERYTHROMYCIN BASE 07/27/2018 16 - Unknown Comments: Other reaction(s): Unknown HYDROMORPHONE 08/20/2022 16 - Unknown IBUPROFEN 07/27/2018 16 - Unknown Comments: Other reaction(s): Unknown KETOROLAC 08/20/2022 12 - Shortness of Breath LATEX 01/23/2007 LIDOCAINE 07/27/2018 7 - Swelling 9 - Itching Comments: Other reaction(s): Unknown MORPHINE 08/20/2022 16 - Unknown NAPROXEN 08/20/2022 16 - Unknown NSAIDS (NON-STEROIDAL ANTI-INFLAM*09/15/2018 10 - Anaphylaxis ONDANSETRON 08/20/2022 16 - Unknown PENICILLINS 07/27/2018 16 - Unknown Comments: Other reaction(s): Unknown SOAP 01/23/2007 SULFA (SULFONAMIDE ANTIBIOTICS) 08/20/2022 16 - Unknown TRAMADOL 06/01/2023 12 - Shortness of Breath vegetables [Other] 01/23/2007 Date Reviewed: 07/08/2023 Reviewed by: Iram Lr RN - Fully Assessed Reason for Visit: Patient Question [7937] Cmt: Medications Prescriptions as of 07/26/2023 - HYDROmorphone 2 mg tablet Take 0.5 tablets by mouth every 6 hours as needed for up to 5 days. - escitalopram oxalate (LEXAPRO) 20 mg tablet Take 10 mg by mouth once daily. Takes 10 mg (0.5 tablet) daily - neomycin/polymyxin B/hydrocort (BTCQYGVP-OASKCCSPZ-CC OPHTHALMIC) Use in eyes as directed. - VGJSYAIJ-XHIGYIYDA-TITE METH 3.5 MG/ML-10,000 UNIT/ML-0.1% EYE DROPS Use 1 application in both eyes as directed. - olopatadine (PATANOL) 0.1 % ophthalmic solution INSTILL 1 DROP INTO BOTH EYES TWICE DAILY NEEDED AT 6-8 HOUR INTERVALS. - levothyroxine (SYNTHROID) 50 mcg tablet Take 50 mcg by mouth. Two tablet at breakfast, pt only takes synthroid not levothyroxine - lorazepam (ATIVAN) 1 mg ORAL Tab Take 1 mg by mouth three times daily as needed. Problem List As Of Date 07/25/2023 Noted Resolved PALPITATIONS [R00.2] 01/23/2007 Unspecified hypothyroidism [E03.9] 01/23/2007 SHORTNESS OF BREATH [R06.02] 01/23/2007 OBESITY NOS [E66.9] 01/23/2007 Unspecified sleep apnea [G47.30] 01/23/2007 MYALGIA AND MYOSITIS NOS [[id number]] 01/23/2007 Multiple allergies [Z88.9] 09/15/2018 Chronic bilateral thoracic back pain [M54.6, G8*09/15/2018 COVID-19 [U07.1] 08/20/2022 Acute gastritis [K29.00] 08/20/2022 Chest pain [R07.9] 08/20/2022 Chronic obstructive lung disease (HCC) [J44.9] 08/20/2022 Contusion of knee [S80.00XA] 08/20/2022 Diabetes mellitus (HCC) [E11.9] 08/20/2022 Generalized anxiety disorder [F41.1] 08/20/2022 Hypomagnesemia [E83.42] 08/20/2022 Injury of low back [S39.92XA] 08/20/2022 Mass of head [R22.0] 08/20/2022 Mitral valve prolapse [I34.1] 08/20/2022 Pre-syncope [R55] 08/20/2022 Vertigo [R42] 08/20/2022 Adenocarcinoma of left lung (HCC) [C34.92] 06/27/2023 Pre-operative exam [Z01.818] 06/27/2023 S/P lobectomy of lung [Z90.2] 07/04/2023 Encounter Status:Closed by THEO MARSH on 07/26/23 [facility] CNPN Telephone ([place]) JESSICA ASH ([id number]) 1945 F Date Time Provider Department 07/25/23 WARREN MENDES JOSETTE During your visit today, we recorded the following information about you: Warren Mendes, SHASHA.DRIVER RECRUITER 07/25/2023 2:03 PM Signed Chart reviewed. Pt is s/p ROSETTA resection, mediastinal lymph note resection by Dr. Riley 07/04/23, tolerated procedure well. Pathology pending at time of DC. Seen by Dr. Portillo with pain management post op due to extensive allergy history. 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 pt stated she took Ativan 0.5 mg twice daily and 1 mg at bedtime prior to admission. Was sent home with dilaudid po rx per pain management 2 mg tablet, take 0.5-1 tablet every 6 hours as needed for up to 5 days. DCd home 07/09/23. 07/14/23 had a fall out of bed- see telephone encounter. Seen in free standing ED, apparently had CT scan and CXR completed. Does not appear we have received copies of these from PCP yet. Due to fall and increased discomfort, renewal of hydromorphone was sent to pharmacy. Her follow up with Dr. Riley was moved up to 07/27/23. 07/25/23 patient sends [facility] message to office (Please give me some answers. I am unable to function at even simple task. I am a very active person normally. I cant function. The pain in my back l.lung and ribs is burning sharp excruciating. Moving is an effort. Was taking one half pain pill. Wait 9 hours one half pain so bad does not phase it by then bed time one half tab. I am not able to function and suffering feeling this is normal. Cant sleep keep waking in pain. If this is normal i cant hack it Even my esophagus and upper r. Lung was hurting this morning Better now but have to get some relief what can i do my nerves are raw. Trying to be a good patient. Why am i so abnormal. This is definately a cry for help. Cant move without suffering. Had it. So sorry jessica aquino). I called patient back today to discuss. NO fevers or chills, no drainage from incision sites. Pulse ox at home 94%. Occ cough, relates it to PND and allergies, no worsening SOB. Knows she has CXR and appt with Dr. Riley this Tuesday. She had been taking 1 mg Dilaudid every 9 hours since last renewal. Has 1.5 tablets left. Reports tearfully and adamantly that this regimen is insufficient to control. OARRS run, will send in 5 day rx for dilaudid 1 mg po q 6 hrs prn. Advised heat and ice. Limitied by other pain management modalities. Advised I would also send in a referral to pain management. She was quite surprised and expressed frustration that this was the next step. Reassured her that surgeries such as hers can take some time to heal, and given her complex allergy history, this would be a great resource. She inquired if we would cover her diluadid until then. I advised she could have that discussion with Dr. Riley Tuesday. I also encouraged her to continue with her TID ativan, and she asked me why are you going there. I advised this would help with overall pain controll as well. She hung up on me at that time. I called her back to verify if she did want the dilaudid rx called in and to where. Reminded her to please get her CXR and that we have not yet received imaging records from her PCP. Rx sent to pharmacy of choice. Warren Mendes APRN.DRIVER RECRUITER Here is our fax number [phone]. Please have them fax over the CT scan results and chest xray Monitor closely with combination opiates and benzodiazepine regimen prn. Tolerating thus far Warren Mendes APRN.CNP 07/25/2023 2:06 PM Signed Addended by: WARREN MENDES on: 07/25/2023 02:06 PM Modules accepted: Jose Cruz Dumont 07/26/2023 10:49 AM Addendum Referral to Pain Management sent via [facility] [place] [facility] Confirmation number: [id number]. Once received and review they will call pt directly to schedule office visit. Allergies As of Date: 07/25/2023 Noted Allergy Reaction PROCHLORPERAZINE 07/27/2018 10 - Anaphylaxis Comments: Compazine ACETAMINOPHEN 01/23/2007 2 - Rash Comments: Other reaction(s): Rash ALBUTEROL 08/20/2022 14 - Other: See Comments Comments: heart racing. BP flucuating all antibiotics [Other] 01/23/2007 14 - Other: See Comments Comments: Especially Bactrim and PCN all pain meds [Other] 01/23/2007 ASPIRIN 01/23/2007 12 - Shortness of Breath Comments: Other reaction(s): Shortness of breath BETADINE (POVIDONE-IODINE) 01/23/2007 CEPHALEXIN 07/27/2018 16 - Unknown Comments: Other reaction(s): Unknown CODEINE 07/27/2018 16 - Unknown Comments: Other reaction(s): Unknown COMPAZINE (PROCHLORPERAZINE EDISY*09/15/2018 10 - Anaphylaxis ct scan dye [Other] 01/23/2007 10 - Anaphylaxis DIPHENHYDRAMINE 07/27/2018 4 - Hives Comments: Other reaction(s): Hives DOXYCYCLINE 07/27/2018 16 - Unknown Comments: Other reaction(s): Unknown EGG 09/15/2018 16 - Unknow (more content not included)... Normal [facility] Progress Noteon 07-19-2023 Progress Note Chart reviewed by Thoracic/Head & Neck Fruit Buying Grader. Patient outmigrated to [facility]. [facility] 07-14-2023 CNPN Telephone (AGVASACC) JESSICA ASH ([id number]) 1945 F Date Time Provider Department 07/14/23 XOCHILT KLEIN During your visit today, we recorded the following information about you: Xochilt Klein APRN.DRIVER RECRUITER 07/14/2023 12:43 PM Signed Returned patient's phone call regarding pain medication and fall. Pt states she fell out of bed, because she changed from a geronimo bed to a twin bed. States she doesn't known what happened. But she laid on the floor for some time prior to getting up and proceeding to free standing ED. There is had a CT scan and CXR completed. Pt is asking PCP to fax us the results (number given to pt). She does plan on f/u with her PCP tomorrow or early next week. Pt states she did not have any drainage from incision or chest tube site since d/c. Started to have drainage since the fall. States drainage is yellow to orange color. States happens when ever she coughs a little. Pt states she is very sore from both the surgery and now the fall. Pt is requesting additional pain medication. Given these factors, a renew of hydromorphone has been sent to [facility]. I have also asked the front staff to move pt's appt up from 08/03 to 07/27. Pt is agreeable with this date and time. All questions were answered. Pt is agreeable with plan. Xochilt Klein APRN.DRIVER RECRUITER Allergies As of Date: 07/14/2023 Noted Allergy Reaction PROCHLORPERAZINE 07/27/2018 10 - Anaphylaxis Comments: Compazine ACETAMINOPHEN 01/23/2007 2 - Rash Comments: Other reaction(s): Rash ALBUTEROL 08/20/2022 14 - Other: See Comments Comments: heart racing. BP flucuating all antibiotics [Other] 01/23/2007 14 - Other: See Comments Comments: Especially Bactrim and PCN all pain meds [Other] 01/23/2007 ASPIRIN 01/23/2007 12 - Shortness of Breath Comments: Other reaction(s): Shortness of breath BETADINE (POVIDONE-IODINE) 01/23/2007 CEPHALEXIN 07/27/2018 16 - Unknown Comments: Other reaction(s): Unknown CODEINE 07/27/2018 16 - Unknown Comments: Other reaction(s): Unknown COMPAZINE (PROCHLORPERAZINE EDISY*09/15/2018 10 - Anaphylaxis ct scan dye [Other] 01/23/2007 10 - Anaphylaxis DIPHENHYDRAMINE 07/27/2018 4 - Hives Comments: Other reaction(s): Hives DOXYCYCLINE 07/27/2018 16 - Unknown Comments: Other reaction(s): Unknown EGG 09/15/2018 16 - Unknown ERYTHROMYCIN BASE 07/27/2018 16 - Unknown Comments: Other reaction(s): Unknown HYDROMORPHONE 08/20/2022 16 - Unknown IBUPROFEN 07/27/2018 16 - Unknown Comments: Other reaction(s): Unknown KETOROLAC 08/20/2022 12 - Shortness of Breath LATEX 01/23/2007 LIDOCAINE 07/27/2018 7 - Swelling 9 - Itching Comments: Other reaction(s): Unknown MORPHINE 08/20/2022 16 - Unknown NAPROXEN 08/20/2022 16 - Unknown NSAIDS (NON-STEROIDAL ANTI-INFLAM*09/15/2018 10 - Anaphylaxis ONDANSETRON 08/20/2022 16 - Unknown PENICILLINS 07/27/2018 16 - Unknown Comments: Other reaction(s): Unknown SOAP 01/23/2007 SULFA (SULFONAMIDE ANTIBIOTICS) 08/20/2022 16 - Unknown TRAMADOL 06/01/2023 12 - Shortness of Breath vegetables [Other] 01/23/2007 Date Reviewed: 07/08/2023 Reviewed by: Iram Lr RN - Fully Assessed Primary Visit Diagnosis:Acute post-operative pain [G89.18] Other Visit Diagnosis:S/P lobectomy of lung [Z90.2] Order(s):HYDROmorphone 2 mg tabletTake 1 tablet by mouth every 12 hours for 15 doses.Disp: 15 tabletRfl: 0 Prescriptions as of 07/14/2023 - HYDROmorphone 2 mg tablet Take 1 tablet by mouth every 12 hours for 15 doses. - escitalopram oxalate (LEXAPRO) 20 mg tablet Take 10 mg by mouth once daily. Takes 10 mg (0.5 tablet) daily - neomycin/polymyxin B/hydrocort (SDQBGBKJ-WSVVFYMKH-VQ OPHTHALMIC) Use in eyes as directed. - UIEYJOFV-PAWPEDWWQ-QRCR METH 3.5 MG/ML-10,000 UNIT/ML-0.1% EYE DROPS Use 1 application in both eyes as directed. - olopatadine (PATANOL) 0.1 % ophthalmic solution INSTILL 1 DROP INTO BOTH EYES TWICE DAILY NEEDED AT 6-8 HOUR INTERVALS. - levothyroxine (SYNTHROID) 50 mcg tablet Take 50 mcg by mouth. Two tablet at breakfast, pt only takes synthroid not levothyroxine - lorazepam (ATIVAN) 1 mg ORAL Tab Take 1 mg by mouth three times daily as needed. Problem List As Of Date 07/14/2023 Noted Resolved PALPITATIONS [R00.2] 01/23/2007 Unspecified hypothyroidism [E03.9] 01/23/2007 SHORTNESS OF BREATH [R06.02] 01/23/2007 OBESITY NOS [E66.9] 01/23/2007 Unspecified sleep apnea [G47.30] 01/23/2007 MYALGIA AND MYOSITIS NOS [[id number]] 01/23/2007 Multiple allergies [Z88.9] 09/15/2018 Chronic bilateral thoracic back pain [M54.6, G8*09/15/2018 COVID-19 [U07.1] 08/20/2022 Acute gastritis [K29.00] 08/20/2022 Chest pain [R07.9] 08/20/2022 Chronic obstructive lung disease (HCC) [J44.9] 08/20/2022 Contusion of knee [S80.00XA] 08/20/2022 Diabetes mellitus (HCC) [E11.9] 08/20/2022 Generalized anxiety disorder [F41.1] 08/20/2022 Hypom (more content not included)... Normal [facility] .Auto Diffon 07-13-2023 Basophil, Absolute 0.1 10 3/mcL Normal 0.0-0.2 [facility] ([place]) Comment on above: Performed By: #### T SHERRON, CBC, ANEU, ADIFF, MDW, GFR, CMP #### [address] [address] Basophils/100 WBC (Bld) 1.2 % Normal 0.0-2.5 [facility] ([place]) Comment on above: Performed By: #### T SHERRON, CBC, ANEU, ADIFF, MDW, GFR, CMP #### [address] [address] Eosinophil, Absolute 0.2 10 3/mcL Normal 0.0-0.4 [facility] ([place]) Comment on above: Performed By: #### T SHERRON, CBC, ANEU, ADIFF, MDW, GFR, CMP #### [address] [address] Eosinophils/100 WBC (Bld) 2.1 % Normal 0.0-7.0 [facility] ([place]) Comment on above: Performed By: #### T SHERRON, CBC, ANEU, ADIFF, MDW, GFR, CMP #### [address] [address] Lymphocyte, Absolute 1.3 10 3/mcL Normal 0.8-3.9 [facility] ([place]) Comment on above: Performed By: #### T SHERRON, CBC, ANEU, ADIFF, MDW, GFR, CMP #### [address] [address] Lymphocytes/100 WBC (Bld) 17.9 % Normal 10.0-50.0 [facility] ([place]) Comment on above: Performed By: #### T SHERRON, CBC, ANEU, ADIFF, MDW, GFR, CMP #### [address] [address] Monocyte, Absolute 0.8 10 3/mcL Normal 0.2-1.0 [facility] ([place]) Comment on above: Performed By: #### T SHERRON, CBC, ANEU, ADIFF, MDW, GFR, CMP #### [address] [address] Monocytes/100 WBC (Bld) 10.6 % Normal 1.7-13.0 [facility] ([place] Comment on above: Performed By: #### T SHERRON, CBC, ANEU, ADIFF, MDW, GFR, CMP #### [address] [address] Neutrophils/100 WBC (Bld) 68.2 % Normal 37.0-80.0 [facility] ([place] Comment on above: Performed By: #### T SHERRON, CBC, ANEU, ADIFF, MDW, GFR, CMP #### [address] [address] .GFRon 07-13-2023 GFR Non- 64 ml/min/1.73sqm Normal [facility] ([place] Comment on above: Result Comment: GFR Population mean for , Non- Americans Ages 20-29 = 116 mL/min/1.73 sq.m. Ages 30-39 = 107 mL/min/1.73 sq.m. Ages 40-49 = 99 mL/min/1.73 sq.m. Ages 50-59 = 93 mL/min/1.73 sq.m. Ages 60-69 = 85 mL/min/1.73 sq.m. Ages 70+ = 75 mL/min/1.73 sq.m. Chronic Kidney Disease: Less than 60 mL/min/1.73 square meters End Stage Renal Disease: Less than 15 mL/min/1.73 square meters Performed By: #### T SHERRON, CBC, ANEU, ADIFF, MDW, GFR, CMP #### [address] [address] GFR 78 ml/min/1.73sqm Normal [facility] ([place] Comment on above: Result Comment: GFR Population mean for , Non- Americans Ages 20-29 = 116 mL/min/1.73 sq.m. Ages 30-39 = 107 mL/min/1.73 sq.m. Ages 40-49 = 99 mL/min/1.73 sq.m. Ages 50-59 = 93 mL/min/1.73 sq.m. Ages 60-69 = 85 mL/min/1.73 sq.m. Ages 70+ = 75 mL/min/1.73 sq.m. Chronic Kidney Disease: Less than 60 mL/min/1.73 square meters End Stage Renal Disease: Less than 15 mL/min/1.73 square meters Performed By: #### T SHERRON, CBC, LACHO DOYLE, W, GFR, CMP #### [place] [address] .MDWon 07-13-2023 Monocyte Distribution Width 17.23 Normal 0.00-20.00 [facility] ([place] Comment on above: Result Comment: For ED adult patients suspected of sepsis, MDW<=20.0 does not rule out sepsis or risk of sepsis Performed By: #### T SHERRON, CBC, LACHO DOYLE, MDW, GFR, CMP #### [place] [address] .NEUABSon 07-13-2023 Neutrophil, Absolute 5.1 10 3/mcL Normal 2.9-6.2 [facility] ([place]) Comment on above: Performed By: #### T SHERRON, CBC, LACHO DOYLE, MDW, GFR, CMP #### [address] [address] .Urinalysis Microscopic (AO) on 07-13-2023 UA Bacteria 1+ /hpf Abnormal [facility] ([place] Comment on above: Performed By: #### T SHERRON, CBC, ANEU, ADROCHELLE, MDW, GFR, CMP #### [place] [id number] UA RBC 0-5 Abnormal None Seen [facility] ([place] Comment on above: Performed By: #### T JOHANHS, CBC, ANEU, ADIFF, MDW, GFR, CMP #### [address] [address] UA Squam Epithelial 0-5 Abnormal None Seen Count includes the [facility] ([place]) Comment on above: Performed By: #### T JOHANHS, CBC, ANEU, ADIFF, MDW, GFR, CMP #### [place] [address] UA WBC 5-10 Abnormal None Seen [facility] ([place] Comment on above: Performed By: #### T SHERRON, CBC, ANEU, ADIFF, MDW, GFR, CMP #### [place] [address] CBCon 07-13-2023 Erythrocyte distribution width (RBC) [Ratio] 15.4 % High 11.5-14.5 [facility] ([place] Comment on above: Performed By: #### T SHERRON, CBC, ANEU, ADIFF, MDW, GFR, CMP #### [place] [address] Hematocrit (Bld) [Volume fraction] 35.3 % Low 37.0-47.0 [facility] ([place] Comment on above: Performed By: #### T SHERRON, CBC, ANEU, ADIFF, MDW, GFR, CMP #### [place] [address] Hgb 11.9 G/dL Low 12.0-16.0 [facility] ([place] Comment on above: Performed By: #### T SHERRON, CBC, ANEU, ADIFF, MDW, GFR, CMP #### [address] [address] MCH (RBC) [Entitic mass] 29.1 pg Normal 27.0-31.2 [facility] ([place] Comment on above: Performed By: #### T SHERRON, CBC, ANEU, ADIFF, MDW, GFR, CMP #### [place] [address] MCHC 33.6 G/dL Normal 33.0-37.0 [facility] ([place] Comment on above: Performed By: #### T SHERRON, CBC, ANEU, ADIFF, MDW, GFR, CMP #### [address] [address] MCV (RBC) [Entitic vol] 86.7 fL Normal 80.0-94.0 [facility] ([place] Comment on above: Performed By: #### T SHERRON, CBC, ANEU, ADIFF, MDW, GFR, CMP #### [address] [address] Platelet 317 10 3/mcL Normal 130-400 [facility] ([place] Comment on above: Performed By: #### T SHERRON, CBC, ANEU, ADIFF, MDW, GFR, CMP #### [address] [address] Platelet mean volume (Bld) [Entitic vol] 6.8 fL Low 7.4-10.4 [facility] ([place] Comment on above: Performed By: #### T SHERRON, CBC, ANEU, ADIFF, MDW, GFR, CMP #### [address] [address] RBC 4.07 10 6/mcL Low 4.20-5.40 [facility] ([place] Comment on above: Performed By: #### T SHERRON, CBC, ANEU, ADIFF, MDW, GFR, CMP #### [address] [address] WBC 7.5 10 3/mcL Normal 4.6-10.8 [facility] ([place] Comment on above: Performed By: #### T SHERRON, CBC, ANEU, ADIFF, MDW, GFR, CMP #### [address] [address] CMPon 07-13-2023 Albumin Level 2.9 G/dL Low 3.4-4.8 [facility] ([place] Comment on above: Performed By: #### T SHERRON, CBC, ANEU, ADIFF, MDW, GFR, CMP #### [address] [address] Albumin/Globulin [Mass ratio] 0.9 {ratio} Low 1.1-2.5 [facility] ([place] Comment on above: Performed By: #### T SHERRON, CBC, ANEU, ADIFF, MDW, GFR, CMP #### [address] [address] ALP [Catalytic activity/Vol] 85 U/L Normal 40-135 [facility] ([place] Comment on above: Performed By: #### T SHERRON, CBC, ANEU, ADIFF, MDW, GFR, CMP #### [address] [address] ALT [Catalytic activity/Vol] 50 U/L Normal 14-59 [facility] ([place] Comment on above: Performed By: #### T SHERRON, CBC, ANEU, ADIFF, MDW, GFR, CMP #### [address] [address] AST [Catalytic activity/Vol] 27 U/L Normal 10-40 [facility] ([place] Comment on above: Performed By: #### T SHERRON, CBC, ANEU, ADIFF, MDW, GFR, CMP #### [address] [address] Bili Total 0.4 mg/dL Normal 0.2-1.0 [facility] ([place]) Comment on above: Result Comment: Use of this assay is not recommended for patients undergoing treatment with eltrombopag due to the potential for falsely elevated results. Performed By: #### T SHERRON, CBC, ANEU, ADIFF, MDW, GFR, CMP #### [address] [address] BUN/Creatinine Ratio 26 ratio Normal 7-27 [facility] ([place]) Comment on above: Performed By: #### T SHERRON, CBC, ANEU, ADIFF, MDW, GFR, CMP #### [address] [address] Calcium [Mass/Vol] 8.1 mg/dL Low 8.4-10.2 [facility] ([place]) Comment on above: Performed By: #### T SHERRON, CBC, ANEU, ADIFF, MDW, GFR, CMP #### [address] [address] Chloride [Moles/Vol] 102 mmol/L Normal 98-107 [facility] ([place]) Comment on above: Performed By: #### T SHERRON, CBC, ANEU, ADIFF, MDW, GFR, CMP #### [address] [address] CO2 [Moles/Vol] 29 mmol/L Normal 23-31 [facility] ([place] Comment on above: Performed By: #### T SHERRON, CBC, ANEU, ADIFF, MDW, GFR, CMP #### [address] [address] Creatinine [Mass/Vol] 0.86 mg/dL Normal 0.55-1.02 [facility] ([place]) Comment on above: Performed By: #### T SHERRON, CBC, ANEU, ADIFF, MDW, GFR, CMP #### [address] [address] Electrolyte Balance 6.0 mEq/L Normal 4.0-15.0 Count includes the [facility] ([place]) Comment on above: Performed By: #### T SHERRON, CBC, ANEU, ADIFF, MDW, GFR, CMP #### [address] [address] Globulin 3.2 G/dL Normal [facility] ([place] Comment on above: Performed By: #### T SHERRON, CBC, ANEU, ADIFF, MDW, GFR, CMP #### [address] [address] Glucose [Mass/Vol] 120 mg/dL High 83-110 [facility] ([place]) Comment on above: Performed By: #### T SHERRON, CBC, ANEU, ADIFF, MDW, GFR, CMP #### [place] [id number] Potassium [Moles/Vol] 4.3 mmol/L Normal 3.5-5.1 [facility] ([place]) Comment on above: Performed By: #### T SHERRON, CBC, ANEU, LACHO, W, GFR, CMP #### [address] [address] Sodium [Moles/Vol] 137 mmol/L Normal 136-145 [facility] ([place]) Comment on above: Performed By: #### T SHERRON, CBC, ANEU, LACHO, MDW, GFR, CMP #### [address] [address] Total Protein 6.1 G/dL Low 6.4-8.2 [facility] ([place] Comment on above: Performed By: #### T SHERRON, CBC, ANEU, LACHO, MDW, GFR, CMP #### [address] [address] Urea nitrogen [Mass/Vol] 22 mg/dL High 7-18 [facility] ([place] Comment on above: Performed By: #### T SHERRON, CBC, ANEU, ADROCHELLE, MDW, GFR, CMP #### [address] [address] [address] HEAD OR BRAIN W/O CONTRAS Ton 07-13-2023 CT HEAD OR BRAIN W/O CONTRAST ORIGINAL HISTORY: Pain, trauma COMPARISON: 06 June 2015 TECHNIQUE: Routine non-contrast head CT with sagittal and coronal reconstructions This exam was performed according to our departmental dose optimization program, and includes the following measures where applicable: automated exposure control, adjustment of the mAs and/or kVp according to patient size and/or exam, and an iterative reconstruction algorithm. FINDINGS: The ventricles and sulci are normal in size and configuration. There are no abnormal intra or extra-axial fluid collections. There is mild irregular decreased attenuation the cerebral white matter. Rick-white matter differentiation is maintained. The calvaria and the bones of the base of the skull are intact. IMPRESSION: Mild small vessel ischemic disease. Interpreted by: Tracey Conde MD Preliminary Report By: Tracey Conde MD Electronically signed By Tracey Conde MD Dictated Date: 07/13/2023 8:38:38 AM Prelim Date: 07/13/2023 8:39:51 AM Sign Date: 07/13/2023 8:39:51 AM Ordering Provider: SAMRI WALKER [facility] ([place] CT SPINE CERVICAL W/O SOLANGEHernan Dulce Maria 07-13-2023 CT SPINE CERVICAL W/O CONTRAST ORIGINAL EXAMINATION: CT OF THE CERVICAL SPINE WITHOUT CONTRAST TECHNIQUE: Axial followed by coronal and sagittal reformatted CT images were obtained without intravenous contrast. DICOM images are available. One or more of the following dose reduction techniques were used: automated exposure control, adjustment of the mA and/or kV according to patient size, or use of iterative reconstruction. COMPARISON: PET CT 01/21/2023 HISTORY: ORDERING SYSTEM PROVIDED HISTORY: Reason for Exam: Pain, trauma after fall today FINDINGS: Alignment: Straightening of the cervical lordosis with mild dextrocurvature of the cervical spine. No evidence of traumatic malalignment. Vertebrae: No fracture, vertebral body height loss, or destructive bone lesion. The superior portion of the dens is not visualized on the coronal images. Discs: Multilevel intervertebral disc height loss, most prominent at C6-C7. Degenerative change: Multilevel degenerative changes with endplate osteophyte formation, facet arthrosis, and uncovertebral joint degeneration. C2-C3 : The central canal and foramina are adequately patent. C3-C4: No severe central canal or right vertebral foraminal stenosis. Mild left vertebral foraminal stenosis. C4-C5 : Mild left vertebral foraminal stenosis. No severe central canal or right vertebral foraminal stenosis. C5-C6 : The central canal and foramina are adequately patent. C6-C7: The central canal and foramina are adequately patent. C7-T1 the central canal and foramina are adequately patent. Paraspinal soft tissues: Unremarkable. Visualized posterior fossa: Unremarkable. Visualized neck: Unremarkable. Visualized lung apices: Scattered areas of pleuroparenchymal scarring. IMPRESSION: No acute fracture or traumatic malalignment. I have personally reviewed the images of this examination and agree with the resident's findings and interpretation. Interpreted by: Ross Andrews MD Preliminary Report By: Rosalina Chinchilla Electronically signed By Ross Andrews MD Dictated Date: 07/13/2023 8:37:01 AM Prelim Date: 07/13/2023 8:51:04 AM Sign Date: 07/13/2023 8:51:04 AM Ordering Provider: SAMIR WALKER Normal [facility] ([place]) TROPHSon 07-13-2023 Troponin I High Sensitivity 7.7 ng/L Normal 0.0-51.4 [facility] ([place] Comment on above: Performed By: #### T SHERRON, CBC, ANEU, ADROCHELLE, MDW, GFR, CMP #### [address] [address] UAon 07-13-2023 Color (U) Yellow Normal [facility] ([place] Comment on above: Performed By: #### T SHERRON, CBC, ANEU, ADIFF, MDW, GFR, CMP #### [address] [address] Glucose (U) [Mass/Vol] Negative Normal Negative [facility] ([place]) Comment on above: Performed By: #### T SHERRON, CBC, ANEU, ADIFF, MDW, GFR, CMP #### [place] [address] Ketones Ql (U) Negative Normal Negative [facility] ([place] Comment on above: Performed By: #### T SHERRON, CBC, ANEU, ADIFF, MDW, GFR, CMP #### [address] [address] UA Appear Clear Normal Clear [facility] ([place] Comment on above: Performed By: #### T SHERRON, CBC, ANEU, ADIFF, MDW, GFR, CMP #### [address] [address] UA Blood Trace Abnormal Negative [facility] ([place] Comment on above: Performed By: #### T SHERRON, CBC, ANEU, ADIFF, MDW, GFR, CMP #### [address] [address] UA Leuk Est Trace Abnormal Negative [facility] ([place] Comment on above: Performed By: #### T SHERRON, CBC, ANEU, ADIFF, MDW, GFR, CMP #### [address] [address] UA Nitrite Negative Normal Negative [facility] ([place]) Comment on above: Performed By: #### T SHERRON, CBC, ANEU, LACHO, MDW, GFR, CMP #### [address] [address] UA pH 6.5 Normal 5.0 - 8.0 [facility] ([place]) Comment on above: Performed By: #### T SHERRON, CBC, ANEU, ADIFF, MDW, GFR, CMP #### [address] [address] UA Protein Negative Normal Negative [facility] ([place]) Comment on above: Performed By: #### T SHERRON, CBC, ANEU, LACHO, MDW, GFR, CMP #### [address] [address] UA Spec Grav 1.025 Normal 1.015-1.025 [facility] ([place]) Comment on above: Performed By: #### T SHERRON, CBC, ANEU, ADIFF, MDW, GFR, CMP #### [address] [address] UA Specimen Type Clean Catch Normal [facility] ([place]) Comment on above: Performed By: #### T SHERRON, CBC, ANEU, ADROCHELLE, MDW, GFR, CMP #### [address] [address] UA Urobilinogen 1.0 E.U./dL Normal 0.2-1.0 [facility] ([place]) Comment on above: Performed By: #### T SHERRON, CBC, ANEU, ADIFF, MDW, GFR, CMP #### [address] [address] Urobilinogen (U) [Mass/Vol] Negative Normal Negative [facility] ([place] Comment on above: Performed By: #### T SHERRON, CBC, ANEU, ADIFF, MDW, GFR, CMP #### [place] [address] XR RIBS 2 VIEWS LEFT/PA CHES T(AO)on 07-13-2023 XR RIBS 2 VIEWS LEFT/PA CHEST(AO) ORIGINAL EXAMINATION: XRAY VIEWS OF LEFT RIBS WITH 2 XRAY VIEWS OF THE CHEST07/13/2023 8:43 am TECHNIQUE: Chest and two views of the left ribs COMPARISON: PET scan 01/21/2023 HISTORY: ORDERING SYSTEM PROVIDED HISTORY: Reason for Exam: pain FINDINGS: The left cardiac border is obscured. Left side postsurgical changes with volume loss and micro zak overlying the midlung are seen. Widespread opacification of the left hemithorax is noted. Mild right lower lobe subsegmental atelectasis is present. No evidence of a pneumothorax or large pleural effusion. Surgical resection of the left posterior 6th rib is noted. There is destruction of the left lateral 5th rib. Healed fracture of the left posterior 8th rib noted. 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 Widespread opacification of the left hemithorax with considerations including atelectasis, consolidation and or underlying small pleural effusion. Postsurgical left-sided volume loss with resection of the left posterior 6th rib. Interpreted by: Ross Andrews MD Preliminary Report By: Ross Andrews MD Electronically signed By Ross Andrews MD Dictated Date: 07/13/2023 8:55:34 AM Prelim Date: 07/13/2023 9:01:33 AM Sign Date: 07/13/2023 9:01:33 AM Ordering Provider: SAMIR WALKER [facility] ([place]) Abhi 07-11-2023 TOSIN Telephone (AGRENETTAACC) JESSICA ASH ([id number]) 1945 F Date Time Provider Department 07/11/23 SHADE [place]LEY During your visit today, we recorded the following information about you: Theo Marsh LPN 07/11/2023 11:17 AM Signed Patient calling in and left message stating she was Discharged Tuesday but her bandages felt like it was full of blood/fluid so they took off. Patient states how often should it be changed? When can it be left off? Patient states she thinks she may need Home Care Nursing? Thoe Marsh LPN July 11, 2023 11:15 AM Warren Mendes APRN.DRIVER RECRUITER 07/11/2023 1:25 PM Signed Called Jessica Aquino, Removed bandage yesterday which she reported was full of fluid and blood, replaced with a new bandage. This is still on, and she reports that she has not noticed any more drainage. Reviewed wound care, daily shower with soap and water and leave CT sites EMA, may cover with gauze/bandaid if draining. Reviewed s/sx of infection to report and to call if still draining around end of week. Explained that she has a f/u appt set 08/03 with [facility] with a CXR to be obtained prior. She verbalized understanding. Warren Mendes APRN.DRIVER RECRUITER Allergies As of Date: 07/11/2023 Noted Allergy Reaction PROCHLORPERAZINE 07/27/2018 10 - Anaphylaxis Comments: Compazine ACETAMINOPHEN 01/23/2007 2 - Rash Comments: Other reaction(s): Rash ALBUTEROL 08/20/2022 14 - Other: See Comments Comments: heart racing. BP flucuating all antibiotics [Other] 01/23/2007 14 - Other: See Comments Comments: Especially Bactrim and PCN all pain meds [Other] 01/23/2007 ASPIRIN 01/23/2007 12 - Shortness of Breath Comments: Other reaction(s): Shortness of breath BETADINE (POVIDONE-IODINE) 01/23/2007 CEPHALEXIN 07/27/2018 16 - Unknown Comments: Other reaction(s): Unknown CODEINE 07/27/2018 16 - Unknown Comments: Other reaction(s): Unknown COMPAZINE (PROCHLORPERAZINE EDISY*09/15/2018 10 - Anaphylaxis ct scan dye [Other] 01/23/2007 10 - Anaphylaxis DIPHENHYDRAMINE 07/27/2018 4 - Hives Comments: Other reaction(s): Hives DOXYCYCLINE 07/27/2018 16 - Unknown Comments: Other reaction(s): Unknown EGG 09/15/2018 16 - Unknown ERYTHROMYCIN BASE 07/27/2018 16 - Unknown Comments: Other reaction(s): Unknown HYDROMORPHONE 08/20/2022 16 - Unknown IBUPROFEN 07/27/2018 16 - Unknown Comments: Other reaction(s): Unknown KETOROLAC 08/20/2022 12 - Shortness of Breath LATEX 01/23/2007 LIDOCAINE 07/27/2018 7 - Swelling 9 - Itching Comments: Other reaction(s): Unknown MORPHINE 08/20/2022 16 - Unknown NAPROXEN 08/20/2022 16 - Unknown NSAIDS (NON-STEROIDAL ANTI-INFLAM*09/15/2018 10 - Anaphylaxis ONDANSETRON 08/20/2022 16 - Unknown PENICILLINS 07/27/2018 16 - Unknown Comments: Other reaction(s): Unknown SOAP 01/23/2007 SULFA (SULFONAMIDE ANTIBIOTICS) 08/20/2022 16 - Unknown TRAMADOL 06/01/2023 12 - Shortness of Breath vegetables [Other] 01/23/2007 Date Reviewed: 07/08/2023 Reviewed by: Iram Lr RN - Fully Assessed Reason for Visit: Patient Question [3617] Cmt: When to change bandages and Home Care requested Prescriptions as of 07/11/2023 - HYDROmorphone 2 mg tablet Take 1 tablet by mouth every 12 hours for 15 doses. - escitalopram oxalate (LEXAPRO) 20 mg tablet Take 10 mg by mouth once daily. Takes 10 mg (0.5 tablet) daily - HYDROmorphone (DILAUDID) 2 mg tablet Take 1/2-1 tablet by mouth every 6 hours as needed for up to 5 days. - neomycin/polymyxin B/hydrocort (GPYAIAWM-OLLLOAIKC-JH OPHTHALMIC) Use in eyes as directed. - MZQLXIDV-AWHOMNUAY-HPOT METH 3.5 MG/ML-10,000 UNIT/ML-0.1% EYE DROPS Use 1 application in both eyes as directed. - olopatadine (PATANOL) 0.1 % ophthalmic solution INSTILL 1 DROP INTO BOTH EYES TWICE DAILY NEEDED AT 6-8 HOUR INTERVALS. - levothyroxine (SYNTHROID) 50 mcg tablet Take 50 mcg by mouth. Two tablet at breakfast, pt only takes synthroid not levothyroxine - lorazepam (ATIVAN) 1 mg ORAL Tab Take 1 mg by mouth three times daily as needed. Problem List As Of Date 07/11/2023 Noted Resolved PALPITATIONS [R00.2] 01/23/2007 Unspecified hypothyroidism [E03.9] 01/23/2007 SHORTNESS OF BREATH [R06.02] 01/23/2007 OBESITY NOS [E66.9] 01/23/2007 Unspecified sleep apnea [G47.30] 01/23/2007 MYALGIA AND MYOSITIS NOS [ZYO3249] 01/23/2007 Multiple allergies [Z88.9] 09/15/2018 Chronic bilateral thoracic back pain [M54.6, G8*09/15/2018 COVID-19 [U07.1] 08/20/2022 Acute gastritis [K29.00] 08/20/2022 Chest pain [R07.9] 08/20/2022 Chronic obstructive lung disease (HCC) [J44.9] 08/20/2022 Contusion of knee [S80.00XA] 08/20/2022 Diabetes mellitus (HCC) [E11.9] 08/20/2022 Generalized anxiety disorder [F41.1] 08/20/2022 Hypomagnesemia [E83.42] 08/20/2022 Injury of low back [S39.92XA] 08/20/2022 Mass of head [R22.0] 08/20/2022 Mitral valve prolapse [I34.1] 08/20/2022 (more content not included)... Normal [facility] Basic metabolic 2000 panelon 07-09-2023 Anion gap [Moles/Vol] 7 mmol/L Low 9-18 [facility] Comment on above: Order Comment: Speci men Type: BLOOD SPECIMEN Ordering Facility: [facility] Address: [address] [place] [address] Performed By: #### 2 4321-2 #### [facility] CLIA [id number] [address] [place] [address] [place] Calcium [Mass/Vol] 8.6 mg/dL Normal 8.5-10.2 [facility] Comment on above: Order Comment: Speci men Type: BLOOD SPECIMEN Ordering Facility: [facility] Address: [address] [place] [address] Performed By: #### 2 4321-2 #### [facility] CLIA [id number] [address] Chloride [Moles/Vol] 103 mmol/L Normal 97-105 [facility] Comment on above: Order Comment: Speci men Type: BLOOD SPECIMEN Ordering Facility: [facility] Address: [address] [address] Performed By: #### 2 4321-2 #### [facility] CLIA [id number] [address] OF [facility] CO2 [Moles/Vol] 30 mmol/L Normal 22-30 [facility] Comment on above: Order Comment: Speci men Type: BLOOD SPECIMEN Ordering Facility: [facility] Address: [address] [address] Performed By: #### 2 4321-2 #### [facility] CLIA [id number] [address] Creatinine [Mass/Vol] 0.74 mg/dL Normal 0.58-0.96 [facility] Comment on above: Order Comment: Speci men Type: BLOOD SPECIMEN Ordering Facility: [facility] Address: [address] [place] [address] Performed By: #### 2 4321-2 #### [facility] CLIA [id number] [address] Creatinine and Glomerular filtration rate.predicted panel (S/P/Bld) 84 mL/min/1.73m??? Normal >=60 [facility] Comment on above: Order Comment: Speci men Type: BLOOD SPECIMEN [facility] [facility] Address: [address] [place] [address] Result Comment: Reyna mated Glomerular Filtration Rate (eGFR) is calculated using the 2020 CKD-EPI creatinine equation. This equation utilizes serum creatinine, sex, and age as parameters. The creatinine assay has traceable calibration to isotope dilution-mass spectrometry. Refer to KDIGO guidelines for clinical interpretation. In patients with unstable renal function, e.g. those with acute kidney injury, the eGFR may not accurately reflect actual GFR. Performed By: #### 2 4321-2 #### [facility] CLIA [id number] 1 [place] [address] [place] Glucose [Mass/Vol] 120 mg/dL High 74-99 [facility] Comment on above: Order Comment: Tyesha mason Type: BLOOD SPECIMEN Ordering Facility: [facility] Address: [address] [place] [address] Result Comment: The [place] Diabetes Association (ADA) provides guidance for cutoff values for fasting glucose and random glucose. The ADA defines fasting as no caloric intake for at least 8 hours. Fasting plasma glucose results between 100 to 125 mg/dL indicate increased risk for diabetes (prediabetes). Fasting plasma glucose results greater than or equal to 126 mg/dL meet the criteria for diagnosis of diabetes. In the absence of unequivocal hyperglycemia, results should be confirmed by repeat testing. In a patient with classic symptoms of hyperglycemia or hyperglycemic crisis, random plasma glucose results greater than or equal to 200 mg/dL meet the criteria for diagnosis of diabetes. Reference: Standards of Medical Care in Diabetes 2016, [place] Diabetes Association. Diabetes Care. 2016.39(Suppl 1). Performed By: #### 2 4321-2 #### [facility] CLIA [id number] 1 [place] [address] [place] Potassium [Moles/Vol] 4.1 mmol/L Normal 3.7-5.1 [facility] Comment on above: Order Comment: Tyesha mason Type: BLOOD SPECIMEN Ordering Facility: [facility] Address: [address] [place] [address] Performed By: #### 2 4321-2 #### [facility] CLIA [id number] [address] [place] [address] [place] Sodium [Moles/Vol] 140 mmol/L Normal 136-144 [facility] Comment on above: Order Comment: Tyesha mason Type: BLOOD SPECIMEN Ordering Facility: [facility] Address: [address] [place] [address] Performed By: #### 2 4321-2 #### [facility] CLIA [id number] [address] [place] Urea nitrogen [Mass/Vol] 16 mg/dL Normal 7-21 [facility] Comment on above: Order Comment: Speci men Type: BLOOD SPECIMEN Ordering Facility: [facility] Address: [address] [place] [address] Performed By: #### 2 4321-2 #### [facility] CLIA [id number] [address] CBC panel Auto (Bld)on 07-09 Erythrocyte distribution width (RBC) [Ratio] 13.9 % Normal 11.5-15.0 [facility] Comment on above: Order Comment: Speci men Type: BLOOD SPECIMEN Ordering Facility: [facility] Address: [address] [place] [address] Performed By: #### 2 4321-2 #### [facility] CLIA [id number] [address] Hematocrit (Bld) [Volume fraction] 35.7 % Low 36.0-46.0 [facility] Comment on above: Order Comment: Speci men Type: BLOOD SPECIMEN Ordering Facility: [facility] Address: [address] [place] [address] Performed By: #### 2 4321-2 #### [facility] CLIA [id number] [address] Hemoglobin (Bld) [Mass/Vol] 11.8 g/dL Normal 11.5-15.5 [facility] Comment on above: Order Comment: Speci men Type: BLOOD SPECIMEN Ordering Facility: [facility] Address: [address] [address] Performed By: #### 2 4321-2 #### [facility] CLIA [id number] [address] MCH (RBC) [Entitic mass] 29.6 pg Normal 26.0-34.0 [facility] Comment on above: Order Comment: Speci men Type: BLOOD SPECIMEN Ordering Facility: [facility] Address: [address] [place] [address] Performed By: #### 2 4321-2 #### [facility] CLIA [id number] [address] MCHC (RBC) [Mass/Vol] 33.1 g/dL Normal 30.5-36.0 [facility] Comment on above: Order Comment: Speci men Type: BLOOD SPECIMEN Ordering Facility: [facility] Address: [address] [place] [address] Performed By: #### 2 4321-2 #### [facility] CLIA [id number] [address] MCV (RBC) [Entitic vol] 89.5 fL Normal 80.0-100.0 [facility] Comment on above: Order Comment: Speci men Type: BLOOD SPECIMEN Ordering Facility: [facility] Address: [address] [place] [address] Performed By: #### 2 4321-2 #### [facility] CLIA [id number] [address] Nucleated RBC (Bld) [#/Vol] 10*3/uL Normal <0.01 [facility] Comment on above: Order Comment: Speci men Type: BLOOD SPECIMEN Ordering Facility: [facility] Address: [address] [place] [address] Performed By: #### 2 4321-2 #### [facility] CLIA [id number] [address] Platelet mean volume (Bld) [Entitic vol] 10.9 fL Normal 9.0-12.7 [facility] Comment on above: Order Comment: Speci men Type: BLOOD SPECIMEN Ordering Facility: [facility] Address: [address] [place] [address] Performed By: #### 2 4321-2 #### [facility] CLIA [id number] [address] [place] Platelets (Bld) [#/Vol] 159 10*3/uL Normal 150-400 [facility] Comment on above: Order Comment: Speci men Type: BLOOD SPECIMEN Ordering Facility: [facility] Address: [address] [place] [address] Performed By: #### 2 4321-2 #### [facility] CLIA [id number] [address] RBC (Bld) [#/Vol] 3.99 10*6/uL Normal 3.90-5.20 [facility] Comment on above: Order Comment: Speci men Type: BLOOD SPECIMEN Ordering Facility: [facility] Address: [address] [place] [address] Performed By: #### 2 4321-2 #### [facility] CLIA [id number] [address] WBC (Bld) [#/Vol] 7.60 10*3/uL Normal 3.70-11.00 [facility] Comment on above: Order Comment: Speci men Type: BLOOD SPECIMEN Ordering Facility: [facility] Address: [address] [place] [address] Performed By: #### 2 4321-2 #### [facility] CLIA [id number] [address] CNDSon 07-09-2023 DS HNO ID: [id number] Author: Dell Ashley DO Service: General Surgery Author Type: Resident Type: Discharge Summary Filed: 07/09/2023 6:33 PM Note Text: Attestation signed by Shade Riley MD at 07/09/2023 9:02 PM I personally saw and examined the patient on 07/09. I reviewed the resident's note. I agree with the resident's assessment and plan unless otherwise noted. DISCHARGE SUMMARY PATIENT NAME: Jessica Ash Code Status: Not on file Highest Readmission Risk Score: 12 The 30 day readmissions risk score is derived from an internally validated risk model which evaluates patient level characteristics, utilization history, medication orders and lab results up until the day of discharge. Patients with a score of 40 or above are considered highest risk for readmission. Specific patient level drivers will be listed at the bottom of the summary. Admission Information Admission Information ADMIT DATE: 07/04/2023 DISCHARGE DATE: 07/09/2023 MY DOCTORS AND MEDICAL TEAM: My Main Hospital Doctor: Shade Riley MD Primary Care Provider: Corinne Panda DO, DO My Medical Team Members: Treatment Team: Attending Provider: Shade Riley MD MY CONDITION AT DISCHARGE: Stable REASON I WAS IN THE HOSPITAL: ROSETTA lobectomy SUMMARY OF WHAT HAPPENED WHILE I WAS IN THE HOSPITAL: Pt was admitted after planned procedure for ROSETTA resection done by Dr. Riley. Patient tolerated surgery well. HDS. Patient had CT tube removed yesterday. X-rays after removal all showed no appearance of new pneumothorax. Stable for discharge today. OTHER PROBLEMS/DIAGNOSIS: Principal Problem: S/P lobectomy of lung Resolved Problems: * No resolved hospital problems. * OPERATIONS PERFORMED WHILE IN THE HOSPITAL: ROSETTA lobectomy IMPORTANT TEST/PROCEDURES: No procedures performed TEST RESULTS NOT AVAILABLE AT THIS TIME: Pathology for Lobectomy pending - will f.units results in office with Dr. Riley. Discharge Disposition Discharge Disposition: Home With Self Care Activity When You Leave the Hospital No prolonged bedrest, longer than 8 hours in a 24 hour period No swimming or hot tubs for: Until folow appointment with Dr. Riley No walking restrictions Diet Instructions Regular For Pain When You Leave the Hospital Use acetaminophen (Tylenol) as recommended on the bottle Use the dispensed medication (see prescription) Wound/Surgical Site Care Leave open to air Wash your hands frequently, especially before touching your incision, after using restroom and before eating Your incision has skin glue. It will peel off on its own. It can get wet Call Your Doctor If There is an unusual odor from the wound area There is severe pain at the operative site You have a severe headache You have lightheadedness, fainting, or confusion You have persistent nausea/vomiting over 24 hours You have persistent or heavy bleeding You have redness, swelling, pus or drainage from the wound You have swollen glands or cold and clammy skin Your temperature is greater than 101F Follow Up Appointments Follow-Up Appointment When: In 2 weeks Shade Riley MD [phone] [address] [facility] [address] [facility] [address] PCP Requested Referral Additional Provider to Provider Information: No notes on file Treatment Team: Attending Provider: Shade Riley MD Transitions of Care Critical Issues: None LABS AND PROCEDURES PENDING AT DISCHARGE: No pending results. Follow up pathology with Dr. Riley at follow up visit. FOLLOW-UP APPOINTMENTS ALREADY SCHEDULED WITH A [facility] PROVIDER: No future appointments. ALLERGIES Allergen Reactions Prochlorperazine Anaphylaxis Compazine Acetaminophen Rash Other reaction(s): Rash Albuterol Other: See Comments heart racing. BP flucuating All Antibiotics [Ot* Other: See Comments Especially Bactrim and PCN All Pain Meds [Othe* Aspirin Shortness of Breath Other reaction(s): Shortness of breath Betadine [Povidone-* Cephalexin Unknown Other reaction(s): Unknown Codeine Unknown Other reaction(s): Unknown Compazine [Prochlor* Anaphylaxis Ct Scan Dye [Other] Anaphylaxis Diphenhydramine Hives Other reaction(s): Hives Doxycycline Unknown Other reaction(s): Unknown Egg Unknown Erythromycin Base Unknown Other reaction(s): Unknown Hydromorphone Unknown Ibuprofen Unknown Other reaction(s): Unknown Ketorolac Shortness of Breath Latex Lidocaine Swelling, Itching Other reaction(s): Unknown Morphine Unknown Naproxen Unknown Nsaids (Non-Steroid* Anaphylaxis Ondansetron Unknown Penicillins Unknown Other reaction(s): Unknown Soap Sulfa (Sulfonamide * Unknown Tramadol Shortness of Breath Vegetables [Other] DISCHARGE MED (more content not included)... Normal [facility] ALLIED HEALTHon 07-08-2023 ALLIED HEALTH HNO ID: [id number] Author: Jennifer Palmer RT(R) Service: ? Author Type: [employer] Sales Rep Type: Allied Health Filed: 07/08/2023 10:09 PM Note Text: Radiology Service Progress Note PATIENT NAME: Jessica Ash DATE OF SERVICE: July 08, 2023 TIME: 10:09 PM PATIENT IDENTITY VERIFICATION COMPLETED USING TWO (2) IDENTIFIERS: Name and Date of confirmed by patient verbally and Name and Date of confirmed by identification band. FALL SCREENING: Has the patient had 2 falls in the last year or 1 fall with injury or currently using an Ambulatory Assistive Device (Walker, Cane, Wheelchair, Crutches, etc.)? Inpatient: Screened on floor PATIENT GENDER DATA: Female. status: : No status: NO. PATIENT RELEVANT IMPLANT DATA REVIEWED: Not Applicable RADIOLOGY DEPARTMENT: General X-ray: Exam(s) Completed: Chest X-Ray PERIPHERAL IV DATA: Not applicable SIGNED BY: Xochilt Grace RT(R) July 08, 2023 10:09 PM Normal [facility] Basic metabolic 2000 panelon 07-08-2023 Anion gap [Moles/Vol] 9 mmol/L Normal 9-18 [facility] Comment on above: Order Comment: Speci men Type: ARTERIAL BLOOD SPECIMEN Ordering Facility: [facility] Address: [address] [place] [address] Performed By: #### A LLBG #### [facility] CLIA [id number] [address] [place] [address] [place] Calcium [Mass/Vol] 8.6 mg/dL Normal 8.5-10.2 [facility] Comment on above: Order Comment: Speci men Type: ARTERIAL BLOOD SPECIMEN Ordering Facility: [facility] Address: [address] [place] [address] Performed By: #### A LLBG #### [facility] CLIA [id number] [address] [place] [address] [place] Chloride [Moles/Vol] 100 mmol/L Normal 97-105 [facility] Comment on above: Order Comment: Speci men Type: ARTERIAL BLOOD SPECIMEN Ordering Facility: [facility] Address: [address] [address] Performed By: #### A LLBG #### [facility] CLIA [id number] [address] OF [facility] CO2 [Moles/Vol] 27 mmol/L Normal 22-30 [facility] Comment on above: Order Comment: Speci men Type: ARTERIAL BLOOD SPECIMEN Ordering Facility: [facility] Address: [address] [place] [address] Performed By: #### A LLBG #### [facility] CLIA [id number] [address] OF [facility] Creatinine [Mass/Vol] 0.71 mg/dL Normal 0.58-0.96 [facility] Comment on above: Order Comment: Speci men Type: ARTERIAL BLOOD SPECIMEN Ordering Facility: [facility] Address: [address] [place] [address] Performed By: #### A LLBG #### [facility] CLIA [id number] [address] Creatinine and Glomerular filtration rate.predicted panel (S/P/Bld) 88 mL/min/1.73m??? Normal >=60 [facility] Comment on above: Order Comment: Speci men Type: ARTERIAL BLOOD SPECIMEN Ordering Facility: [facility] Address: [address] [place] [address] Result Comment: Reyna mated Glomerular Filtration Rate (eGFR) is calculated using the 2020 CKD-EPI creatinine equation. This equation utilizes serum creatinine, sex, and age as parameters. The creatinine assay has traceable calibration to isotope dilution-mass spectrometry. Refer to KDIGO guidelines for clinical interpretation. In patients with unstable renal function, e.g. those with acute kidney injury, the eGFR may not accurately reflect actual GFR. Performed By: #### A LLBG #### [facility] CLIA [id number] [address] Glucose [Mass/Vol] 106 mg/dL High 74-99 [facility] Comment on above: Order Comment: Speci men Type: ARTERIAL BLOOD SPECIMEN Ordering Facility: [facility] Address: [address] [address] Result Comment: The [place] Diabetes Association (ADA) provides guidance for cutoff values for fasting glucose and random glucose. The ADA defines fasting as no caloric intake for at least 8 hours. Fasting plasma glucose results between 100 to 125 mg/dL indicate increased risk for diabetes (prediabetes). Fasting plasma glucose results greater than or equal to 126 mg/dL meet the criteria for diagnosis of diabetes. In the absence of unequivocal hyperglycemia, results should be confirmed by repeat testing. In a patient with classic symptoms of hyperglycemia or hyperglycemic crisis, random plasma glucose results greater than or equal to 200 mg/dL meet the criteria for diagnosis of diabetes. Reference: Standards of Medical Care in Diabetes 2016, [place] Diabetes Association. Diabetes Care. 2016.39(Suppl 1). Performed By: #### A LLBG #### [facility] CLIA [id number] [address] [place] [address] [place] Potassium [Moles/Vol] 4.0 mmol/L Normal 3.7-5.1 [facility] Comment on above: Order Comment: Speci men Type: ARTERIAL BLOOD SPECIMEN Ordering Facility: [facility] Address: [address] [address] Performed By: #### A LLBG #### [facility] CLIA [id number] [address] [place] [address] [place] Sodium [Moles/Vol] 136 mmol/L Normal 136-144 [facility] Comment on above: Order Comment: Speci men Type: ARTERIAL BLOOD SPECIMEN Ordering Facility: [facility] Address: [address] [address] Performed By: #### A LLBG #### [facility] CLIA [id number] [address] [place] [address] [place] Urea nitrogen [Mass/Vol] 18 mg/dL Normal 7-21 [facility] Comment on above: Order Comment: Speci men Type: ARTERIAL BLOOD SPECIMEN Ordering Facility: [facility] Address: [address] [address] Performed By: #### A LLBG #### [facility] CLIA [id number] [address] [place] CASE MANAGEMon 07-08-2023 CASE MANAGEM HNO ID: [id number] Author: Warren Castro RN Service: ? Author Type: Registered Nurse Type: Care Mgt Progress Note Filed: 07/08/2023 6:25 PM Note Text: CARE MANAGEMENT PROGRESS NOTE SERVICE DATE: 07/08/2023 SERVICE TIME: 6:25 PM LOS: 4 days IMM Follow Up Copy Given: Yes Copy given to:: Patient Method: In Person Verbalizes understanding SIGNATURE: Warren Castro RN PATIENT NAME: Jessica Ash DATE: July 08, 2023 TIME: 6:25 PM PAGER/CONTACT #: [phone] [facility] CASE MANAGEM HNO ID: [id number] Author: Warren Castro RN Service: ? Author Type: Registered Nurse Type: Care Mgt Progress Note Filed: 07/08/2023 11:17 AM Note Text: CARE MANAGEMENT PROGRESS NOTE SERVICE DATE: 07/08/2023 SERVICE TIME: 11:17 AM LOS: 4 days Plan is home with self care, family to transport. CM to follow for transitional needs SIGNATURE: Warren Castro RN PATIENT NAME: Jessica Ash DATE: July 08, 2023 TIME: 11:16 AM PAGER/CONTACT #: [phone] [facility] CBC panel Auto (Bld)on 07-08 Erythrocyte distribution width (RBC) [Ratio] 14.3 % Normal 11.5-15.0 [facility] Comment on above: Order Comment: Speci men Type: ARTERIAL BLOOD SPECIMEN Ordering Facility: [facility] Address: [address] [place] [address] Performed By: #### A LLBG #### [facility] CLIA [id number] [address] OF [facility] Hematocrit (Bld) [Volume fraction] 33.2 % Low 36.0-46.0 [facility] Comment on above: Order Comment: Speci men Type: ARTERIAL BLOOD SPECIMEN Ordering Facility: [facility] Address: [address] [place] [address] Performed By: #### A LLBG #### [facility] CLIA [id number] [address] Hemoglobin (Bld) [Mass/Vol] 10.7 g/dL Low 11.5-15.5 [facility] Comment on above: Order Comment: Speci men Type: ARTERIAL BLOOD SPECIMEN Ordering Facility: [facility] Address: [address] [place] [address] Performed By: #### A LLBG #### [facility] CLIA [id number] [address] MCH (RBC) [Entitic mass] 29.4 pg Normal 26.0-34.0 [facility] Comment on above: Order Comment: Speci men Type: ARTERIAL BLOOD SPECIMEN Ordering Facility: [facility] Address: [address] [place] [address] Performed By: #### A LLBG #### [facility] CLIA [id number] [address] MCHC (RBC) [Mass/Vol] 32.2 g/dL Normal 30.5-36.0 [facility] Comment on above: Order Comment: Speci men Type: ARTERIAL BLOOD SPECIMEN Ordering Facility: [facility] Address: [address] [place] [address] Performed By: #### A LLBG #### [facility] CLIA [id number] [address] MCV (RBC) [Entitic vol] 91.2 fL Normal 80.0-100.0 [facility] Comment on above: Order Comment: Speci men Type: ARTERIAL BLOOD SPECIMEN Ordering Facility: [facility] Address: [address] [place] [address] Performed By: #### A LLBG #### [facility] CLIA [id number] [address] Nucleated RBC (Bld) [#/Vol] 10*3/uL Normal <0.01 [facility] Comment on above: Order Comment: Speci men Type: ARTERIAL BLOOD SPECIMEN Ordering Facility: [facility] Address: [address] [address] Performed By: #### A LLBG #### [facility] CLIA [id number] [address] Platelet mean volume (Bld) [Entitic vol] 11.1 fL Normal 9.0-12.7 [facility] Comment on above: Order Comment: Speci men Type: ARTERIAL BLOOD SPECIMEN Ordering Facility: [facility] Address: [address] [address] Performed By: #### A LLBG #### [facility] CLIA [id number] [address] [place] Platelets (Bld) [#/Vol] 162 10*3/uL Normal 150-400 [facility] Comment on above: Order Comment: Speci men Type: ARTERIAL BLOOD SPECIMEN Ordering Facility: [facility] Address: [address] [place] [address] Performed By: #### A LLBG #### [facility] CLIA [id number] [address] [place] RBC (Bld) [#/Vol] 3.64 10*6/uL Low 3.90-5.20 [facility] Comment on above: Order Comment: Speci men Type: ARTERIAL BLOOD SPECIMEN Ordering Facility: [facility] Address: [address] [address] Performed By: #### A LLBG #### [facility] CLIA [id number] [address] [place] WBC (Bld) [#/Vol] 7.90 10*3/uL Normal 3.70-11.00 [facility] Comment on above: Order Comment: Speci men Type: ARTERIAL BLOOD SPECIMEN Ordering Facility: [facility] Address: [address] [place] [address] Performed By: #### A LLBG #### [facility] CLIA [id number] [address] [place] XR CHEST 1V FRONTALon 09-29- 2023 XR CHEST 1V FRONTAL * * *Final Report* * * DATE OF EXAM: Jul 08 2023 10:07PM [id number] [id number] - XR CHEST 1V FRONTAL / PROCEDURE REASON: Post-operative/post-pro cedure assessment * * * * Physician Interpretation * * * * EXAMINATION: CHEST RADIOGRAPH (SINGLE VIEW AP OR PA) CLINICAL HISTORY: Post-operative/post-pro cedure assessment MQ: XC1_5 Comparison: Earlier study of 5:17 PM RESULT: Lines, tubes, and devices: None. Lungs and pleura: Patchy opacification of the left hemithorax appears similar to the prior study. No developing lung opacities, pneumothorax or enlarging sizable pleural effusions are identified. The right lung appears clear. Cardiomediastinal silhouette: Stable cardiomediastinal silhouette. Other: Subcutaneous emphysema is noted involving the left chest wall. IMPRESSION: Stable chest x-ray. Professional Shopper: PSCB Transcribe Date/Time: Jul 08 2023 10:24P Dictated by : KALI LEWIS MD This examination was interpreted and the report reviewed and electronically signed by: KALI LEWIS MD on Jul 08 2023 10:25PM EST [id number] Normal [facility] XR CHEST 1V FRONTAL * * *Final Report* * * DATE OF EXAM: Jul 08 2023 5:23PM [id number] [id number] - XR CHEST 1V FRONTAL / PROCEDURE REASON: Post-operative/post-pro cedure assessment * * * * Physician Interpretation * * * * EXAM TITLE: AP/PA CHEST X RAY COMPARISON: Chest x-ray examination performed later today. CLINICAL HISTORY: Post-operative/post-pro cedure assessment ENCOUNTER: Not applicable MQ: XC1_5 RESULT: Lines, tubes, and devices: Examination limited due to overlying EKG leads. Interval removal left-sided thoracostomy tube. Lungs and pleura: No discrete significant pneumothorax. Little interval change regarding mixed interstitial and airspace opacities involving the left mid and lower lung zones, possibly due to atelectasis or consolidation. Right lung essentially clear. No discrete effusion. Cardiomediastinal silhouette: Unchanged. Other: Small amount of gas within the left lateral thoracic soft tissues. Osseous structures are unremarkable. IMPRESSION: Interval removal left-sided thoracostomy tube. No pneumothorax. Little interval change regarding appearance of the left lung, suspicious examination. Professional Shopper[facility] Transcribe Date/Time: Jul 08 2023 5:46P Dictated by : RENEA CASAS MD This examination was interpreted and the report reviewed and electronically signed by: RENEA CASAS MD on Jul 08 2023 5:48PM EST [id number] Normal [facility] XR CHEST 1V FRONTAL * * *Final Report* * * DATE OF EXAM: Jul 08 2023 10:30AM AKX 5290 - XR CHEST 1V FRONTAL / PROCEDURE REASON: Post-operative / post-procedure assessment, asymptomatic * * * * Physician Interpretation * * * * EXAMINATION: CHEST RADIOGRAPH (SINGLE VIEW AP OR PA) CLINICAL HISTORY: Post-operative / post-procedure assessment, asymptomatic, Post-operative/post-pro cedure assessment MQ: XC1_5 Comparison: 07/07/2023 RESULT: Lines, tubes, and devices: Stable left chest tube Lungs and pleura: Stable left pleural effusion and left basilar atelectasis. No visible pneumothorax. Cardiomediastinal silhouette: Stable cardiomediastinal silhouette. Other: Stable left rib fractures. Stable left subcutaneous emphysema. IMPRESSION: Stable chest. Professional Shopper: [facility] Transcribe Date/Time: Jul 08 2023 10:43A Dictated by : CAMILLE SINCLAIR MD This examination was interpreted and the report reviewed and electronically signed by: CAMILLE SINCLAIR MD on Jul 08 2023 10:45AM EST [id number] Normal [facility] ALLIED HEALTHon 07-07-2023 ALLIED HEALTH HNO ID: [id number] Author: Valerie Rodríguez RT(R) Service: Radiology Author Type: Technologist Type: Allied Health Filed: 07/07/2023 5:57 AM Note Text: Radiology Service Progress Note PATIENT NAME: Jessica Ash DATE OF SERVICE: July 07, 2023 TIME: 5:57 AM PATIENT IDENTITY VERIFICATION COMPLETED USING TWO (2) IDENTIFIERS: Name and Date of confirmed by patient verbally and Name and Date of confirmed by identification band. FALL SCREENING: Has the patient had 2 falls in the last year or 1 fall with injury or currently using an Ambulatory Assistive Device (Walker, Cane, Wheelchair, Crutches, etc.)? Inpatient: Screened on floor PATIENT GENDER DATA: Female. status: : No status: NO. PATIENT RELEVANT IMPLANT DATA REVIEWED: Not Applicable RADIOLOGY DEPARTMENT: General X-ray: Exam(s) Completed: Chest X-Ray PERIPHERAL IV DATA: Not applicable SIGNED BY: Valerie Rodríguez RT(R) July 07, 2023 5:57 AM Normal [facility] Basic metabolic 2000 panelon 07-07-2023 Anion gap [Moles/Vol] 8 mmol/L Low 9-18 [facility] Comment on above: Order Comment: Speci men Type: BLOOD SPECIMEN Ordering Facility: [facility] Address: [address] [place] [address] Performed By: #### 2 4321-2 #### [facility] CLIA [id number] 1 [place] [address] [place] Calcium [Mass/Vol] 8.5 mg/dL Normal 8.5-10.2 [facility] Comment on above: Order Comment: Speci men Type: BLOOD SPECIMEN Ordering Facility: [facility] Address: [address] [place] [address] Performed By: #### 2 4321-2 #### [facility] CLIA [id number] 1 [place] [address] [place] Chloride [Moles/Vol] 101 mmol/L Normal 97-105 [facility] Comment on above: Order Comment: Speci men Type: BLOOD SPECIMEN Ordering Facility: [facility] Address: [address] [address] Performed By: #### 2 4321-2 #### [facility] CLIA [id number] [address] [place] [address] [place] CO2 [Moles/Vol] 27 mmol/L Normal 22-30 [facility] Comment on above: Order Comment: Speci men Type: BLOOD SPECIMEN Ordering Facility: [facility] Address: [address] [address] Performed By: #### 2 4321-2 #### [facility] CLIA [id number] [address] [place] Creatinine [Mass/Vol] 0.72 mg/dL Normal 0.58-0.96 [facility] Comment on above: Order Comment: Tyesha mason Type: BLOOD SPECIMEN Ordering Facility: [facility] Address: [address] [place] [address] Performed By: #### 2 4321-2 #### [facility] CLIA [id number] [address] Creatinine and Glomerular filtration rate.predicted panel (S/P/Bld) 87 mL/min/1.73m??? Normal >=60 [facility] Comment on above: Order Comment: Tyesha mason Type: BLOOD SPECIMEN Ordering Facility: [facility] Address: [address] [place] [address] Result Comment: Reyan mated Glomerular Filtration Rate (eGFR) is calculated using the 2020 CKD-EPI creatinine equation. This equation utilizes serum creatinine, sex, and age as parameters. The creatinine assay has traceable calibration to isotope dilution-mass spectrometry. Refer to KDIGO guidelines for clinical interpretation. In patients with unstable renal function, e.g. those with acute kidney injury, the eGFR may not accurately reflect actual GFR. Performed By: #### 2 4321-2 #### [facility] CLIA [id number] [address] [place] Glucose [Mass/Vol] 111 mg/dL High 74-99 [facility] Comment on above: Order Comment: Tyesha mason Type: BLOOD SPECIMEN Ordering Facility: [facility] Address: [address] [place] [address] Result Comment: The [place] Diabetes Association (ADA) provides guidance for cutoff values for fasting glucose and random glucose. The ADA defines fasting as no caloric intake for at least 8 hours. Fasting plasma glucose results between 100 to 125 mg/dL indicate increased risk for diabetes (prediabetes). Fasting plasma glucose results greater than or equal to 126 mg/dL meet the criteria for diagnosis of diabetes. In the absence of unequivocal hyperglycemia, results should be confirmed by repeat testing. In a patient with classic symptoms of hyperglycemia or hyperglycemic crisis, random plasma glucose results greater than or equal to 200 mg/dL meet the criteria for diagnosis of diabetes. Reference: Standards of Medical Care in Diabetes 2016, [place] Diabetes Association. Diabetes Care. 2016.39(Suppl 1). Performed By: #### 2 4321-2 #### [facility] CLIA [id number] [address] OF [facility] Potassium [Moles/Vol] 3.8 mmol/L Normal 3.7-5.1 [facility] Comment on above: Order Comment: Speci men Type: BLOOD SPECIMEN Ordering Facility: [facility] Address: [address] [place] [address] Performed By: #### 2 4321-2 #### [facility] CLIA [id number] [address] Sodium [Moles/Vol] 136 mmol/L Normal 136-144 [facility] Comment on above: Order Comment: Speci men Type: BLOOD SPECIMEN Ordering Facility: [facility] Address: [address] [place] [address] Performed By: #### 2 4321-2 #### [facility] CLIA [id number] [address] Urea nitrogen [Mass/Vol] 18 mg/dL Normal 7-21 [facility] Comment on above: Order Comment: Speci men Type: BLOOD SPECIMEN Ordering Facility: [facility] Address: [address] [place] [address] Performed By: #### 2 4321-2 #### [facility] CLIA [id number] [address] OF [facility] CASE MANAGEMon 07-07-2023 CASE MANAGEM HNO ID: [id number] Author: Warren Castro RN Service: ? Author Type: Registered Nurse Type: Care Mgt Progress Note Filed: 07/07/2023 2:48 PM Note Text: CARE MANAGEMENT PROGRESS NOTE SERVICE DATE: 07/07/2023 SERVICE TIME: 2:46 PM LOS: 3 days Plan TBD, patient may benefit from PT OT evals. Family to transport. CM to follow for transitional needs SIGNATURE: Warren Castro RN PATIENT NAME: Jessica Ash DATE: July 07, 2023 TIME: 2:46 PM PAGER/CONTACT #: [phone] Normal [facility] CBC panel Auto (Bld)on 07-07 Erythrocyte distribution width (RBC) [Ratio] 14.5 % Normal 11.5-15.0 [facility] Comment on above: Order Comment: Speci men Type: ARTERIAL BLOOD SPECIMEN Ordering Facility: [facility] Address: [address] [place] [address] Performed By: #### A LLBG #### [facility] CLIA [id number] [address] Hematocrit (Bld) [Volume fraction] 33.7 % Low 36.0-46.0 [facility] Comment on above: Order Comment: Speci men Type: ARTERIAL BLOOD SPECIMEN Ordering Facility: [facility] Address: [address] [place] [address] Performed By: #### A LLBG #### [facility] CLIA [id number] [address] [place] Hemoglobin (Bld) [Mass/Vol] 10.9 g/dL Low 11.5-15.5 [facility] Comment on above: Order Comment: Speci men Type: ARTERIAL BLOOD SPECIMEN Ordering Facility: [facility] Address: [address] [place] [address] Performed By: #### A LLBG #### [facility] CLIA [id number] [address] [place] [address] [place] [facility] MCH (RBC) [Entitic mass] 29.4 pg Normal 26.0-34.0 [facility] Comment on above: Order Comment: Speci men Type: ARTERIAL BLOOD SPECIMEN Ordering Facility: [facility] Address: [address] [place] [address] Performed By: #### A LLBG #### [facility] CLIA [id number] [address] [place] [address] MCHC (RBC) [Mass/Vol] 32.3 g/dL Normal 30.5-36.0 [facility] Comment on above: Order Comment: Speci men Type: ARTERIAL BLOOD SPECIMEN Ordering Facility: [facility] Address: [address] [address] Performed By: #### A LLBG #### [facility] CLIA [id number] [address] MCV (RBC) [Entitic vol] 90.8 fL Normal 80.0-100.0 [facility] Comment on above: Order Comment: Speci men Type: ARTERIAL BLOOD SPECIMEN Ordering Facility: [facility] Address: [address] [address] Performed By: #### A LLBG #### [facility] CLIA [id number] [address] Nucleated RBC (Bld) [#/Vol] 10*3/uL Normal <0.01 [facility] Comment on above: Order Comment: Speci men Type: ARTERIAL BLOOD SPECIMEN Ordering Facility: [facility] Address: [address] [address] Performed By: #### A LLBG #### [facility] CLIA [id number] [address] Platelet mean volume (Bld) [Entitic vol] 10.7 fL Normal 9.0-12.7 [facility] Comment on above: Order Comment: Speci men Type: ARTERIAL BLOOD SPECIMEN Ordering Facility: [facility] Address: [address] [address] Performed By: #### A LLBG #### [facility] CLIA [id number] [address] Platelets (Bld) [#/Vol] 162 10*3/uL Normal 150-400 [facility] Comment on above: Order Comment: Speci men Type: ARTERIAL BLOOD SPECIMEN Ordering Facility: [facility] Address: [address] [address] Result Comment: No c lot detected. Performed By: #### A LLBG #### [facility] CLIA [id number] [address] [place] RBC (Bld) [#/Vol] 3.71 10*6/uL Low 3.90-5.20 [facility] Comment on above: Order Comment: Speci men Type: ARTERIAL BLOOD SPECIMEN Ordering Facility: [facility] Address: [address] [place] [address] Performed By: #### A LLBG #### [facility] CLIA [id number] [address] WBC (Bld) [#/Vol] 9.49 10*3/uL Normal 3.70-11.00 [facility] Comment on above: Order Comment: Speci men Type: ARTERIAL BLOOD SPECIMEN Ordering Facility: [facility] Address: [address] [place] [address] Performed By: #### A LLBG #### [facility] CLIA [id number] [address] XR CHEST 1V FRONTALon 2022 XR CHEST 1V FRONTAL * * *Final Report* * * DATE OF EXAM: Jul 07 2023 6:01AM AKX 5290 - XR CHEST 1V FRONTAL / PROCEDURE REASON: Post-operative / post-procedure assessment, asymptomatic * * * * Physician Interpretation * * * * EXAMINATION: CHEST RADIOGRAPH (SINGLE VIEW AP OR PA) CLINICAL HISTORY: Post-operative / post-procedure assessment, asymptomatic, Post-operative/post-pro cedure assessment MQ: XC1_5 Comparison: 07/06/2023 RESULT: Lines, tubes, and devices: Left-sided chest tube with tip directed towards left apex. Overlying cardiac cath tech leads. Lungs and pleura: Persistent diminished aeration in the left lung. No obvious residual pneumothorax. Right lung clear. Cardiomediastinal silhouette: Normal cardiomediastinal silhouette. Other: Air within the left chest wall. Multiple left-sided rib fractures again noted. IMPRESSION: Stable appearance of the chest. Professional Shopper: [facility] Transcribe Date/Time: Jul 07 2023 6:50A Dictated by : FANG SCHMITT MD This examination was interpreted and the report reviewed and electronically signed by: FANG SCHMITT MD on Jul 07 2023 6:52AM EST [id number] Normal [facility] ALLIED HEALTHon 07-06-2023 ALLIED HEALTH HNO ID: [id number] Author: Jennifer Palmer RT(R) Service: ? Author Type: Auto Finance Sales Rep Type: Allied Health Filed: 07/06/2023 5:10 AM Note Text: Radiology Service Progress Note PATIENT NAME: Jessica Ash DATE OF SERVICE: July 06, 2023 TIME: 5:09 AM PATIENT IDENTITY VERIFICATION COMPLETED USING TWO (2) IDENTIFIERS: Name and Date of confirmed by patient verbally and Name and Date of confirmed by identification band. FALL SCREENING: Has the patient had 2 falls in the last year or 1 fall with injury or currently using an Ambulatory Assistive Device (Walker, Cane, Wheelchair, Crutches, etc.)? Inpatient: Screened on floor PATIENT GENDER DATA: Female. status: : No status: NO. PATIENT RELEVANT IMPLANT DATA REVIEWED: Not Applicable RADIOLOGY DEPARTMENT: General X-ray: Exam(s) Completed: Chest X-Ray PERIPHERAL IV DATA: Not applicable SIGNED BY: Preeti Miranda RT(R) July 06, 2023 5:09 AM Normal [facility] Basic metabolic 2000 panelon 07-06-2023 Anion gap [Moles/Vol] 8 mmol/L Low 9-18 [facility] Comment on above: Order Comment: Speci men Type: BLOOD SPECIMEN Ordering Facility: [facility] Address: [address] [place] [address] Performed By: #### 2 4321-2 #### [facility] CLIA [id number] 1 [place] [address] [place] Calcium [Mass/Vol] 9.1 mg/dL Normal 8.5-10.2 [facility] Comment on above: Order Comment: Speci men Type: BLOOD SPECIMEN Ordering Facility: [facility] Address: [address] [place] [address] Performed By: #### 2 4321-2 #### [facility] CLIA [id number] [address] [place] [address] Chloride [Moles/Vol] 97 mmol/L Normal 97-105 [facility] Comment on above: Order Comment: Speci men Type: BLOOD SPECIMEN Ordering Facility: [facility] Address: [address] [place] [address] Performed By: #### 2 4321-2 #### [facility] CLIA [id number] [address] CO2 [Moles/Vol] 26 mmol/L Normal 22-30 [facility] Comment on above: Order Comment: Speci men Type: BLOOD SPECIMEN Ordering Facility: [facility] Address: [address] [place] [address] Performed By: #### 2 4321-2 #### [facility] CLIA [id number] [address] Creatinine [Mass/Vol] 0.77 mg/dL Normal 0.58-0.96 [facility] Comment on above: Order Comment: Speci men Type: BLOOD SPECIMEN Ordering Facility: [facility] Address: [address] [place] [address] Performed By: #### 2 4321-2 #### [facility] CLIA [id number] [address] Creatinine and Glomerular filtration rate.predicted panel (S/P/Bld) 80 mL/min/1.73m??? Normal >=60 [facility] Comment on above: Order Comment: Speci men Type: BLOOD SPECIMEN Ordering Facility: [facility] Address: [address] [place] [address] Result Comment: Reyna mated Glomerular Filtration Rate (eGFR) is calculated using the 2020 CKD-EPI creatinine equation. This equation utilizes serum creatinine, sex, and age as parameters. The creatinine assay has traceable calibration to isotope dilution-mass spectrometry. Refer to KDIGO guidelines for clinical interpretation. In patients with unstable renal function, e.g. those with acute kidney injury, the eGFR may not accurately reflect actual GFR. Performed By: #### 2 4321-2 #### [facility] CLIA [id number] [address] [place] [address] [place] Glucose [Mass/Vol] 138 mg/dL High 74-99 [facility] Comment on above: Order Comment: Tyesha mason Type: BLOOD SPECIMEN Ordering Facility: [facility] Address: [address] [place] [address] Result Comment: The [place] Diabetes Association (ADA) provides guidance for cutoff values for fasting glucose and random glucose. The ADA defines fasting as no caloric intake for at least 8 hours. Fasting plasma glucose results between 100 to 125 mg/dL indicate increased risk for diabetes (prediabetes). Fasting plasma glucose results greater than or equal to 126 mg/dL meet the criteria for diagnosis of diabetes. In the absence of unequivocal hyperglycemia, results should be confirmed by repeat testing. In a patient with classic symptoms of hyperglycemia or hyperglycemic crisis, random plasma glucose results greater than or equal to 200 mg/dL meet the criteria for diagnosis of diabetes. Reference: Standards of Medical Care in Diabetes 2016, [place] Diabetes Association. Diabetes Care. 2016.39(Suppl 1). Performed By: #### 2 4321-2 #### [facility] CLIA [id number] [address] [place] [address] [place] Potassium [Moles/Vol] 4.5 mmol/L Normal 3.7-5.1 [facility] Comment on above: Order Comment: Tyesha mason Type: BLOOD SPECIMEN Ordering Facility: [facility] Address: [address] [place] [address] Performed By: #### 2 4321-2 #### [facility] CLIA [id number] [address] [place] [address] [place] Sodium [Moles/Vol] 131 mmol/L Low 136-144 [facility] Comment on above: Order Comment: Tyesha mason Type: BLOOD SPECIMEN Ordering Facility: [facility] Address: [address] [place] [address] Performed By: #### 2 4321-2 #### [facility] CLIA [id number] [address] [place] [address] [place] Urea nitrogen [Mass/Vol] 21 mg/dL Normal 7-21 [facility] Comment on above: Order Comment: Speci men Type: BLOOD SPECIMEN Ordering Facility: [facility] Address: [address] [address] Performed By: #### 2 4321-2 #### [facility] CLIA [id number] [address] CBC panel Auto (Bld)on 07-06 Erythrocyte distribution width (RBC) [Ratio] 14.3 % Normal 11.5-15.0 [facility] Comment on above: Order Comment: Speci men Type: BLOOD SPECIMEN Ordering Facility: [facility] Address: [address] [address] Performed By: #### 2 4321-2 #### [facility] CLIA [id number] [address] Hematocrit (Bld) [Volume fraction] 35.9 % Low 36.0-46.0 [facility] Comment on above: Order Comment: Speci men Type: BLOOD SPECIMEN Ordering Facility: [facility] Address: [address] [address] Performed By: #### 2 4321-2 #### [facility] CLIA [id number] [address] Hemoglobin (Bld) [Mass/Vol] 11.7 g/dL Normal 11.5-15.5 [facility] Comment on above: Order Comment: Speci men Type: BLOOD SPECIMEN Ordering Facility: [facility] Address: [address] [address] Performed By: #### 2 4321-2 #### [facility] CLIA [id number] [address] [place] MCH (RBC) [Entitic mass] 29.3 pg Normal 26.0-34.0 [facility] Comment on above: Order Comment: Speci men Type: BLOOD SPECIMEN Ordering Facility: [facility] Address: [address] [place] [address] Performed By: #### 2 4321-2 #### [facility] CLIA [id number] [address] MCHC (RBC) [Mass/Vol] 32.6 g/dL Normal 30.5-36.0 [facility] Comment on above: Order Comment: Speci men Type: BLOOD SPECIMEN Ordering Facility: [facility] Address: [address] [place] [address] Performed By: #### 2 4321-2 #### [facility] CLIA [id number] [address] MCV (RBC) [Entitic vol] 90.0 fL Normal 80.0-100.0 [facility] Comment on above: Order Comment: Speci men Type: BLOOD SPECIMEN Ordering Facility: [facility] Address: [address] [place] [address] Performed By: #### 2 4321-2 #### [facility] CLIA [id number] [address] Nucleated RBC (Bld) [#/Vol] 10*3/uL Normal <0.01 [facility] Comment on above: Order Comment: Speci men Type: BLOOD SPECIMEN Ordering Facility: [facility] Address: [address] [place] [address] Performed By: #### 2 4321-2 #### [facility] CLIA [id number] [address] Platelet mean volume (Bld) [Entitic vol] 11.7 fL Normal 9.0-12.7 [facility] Comment on above: Order Comment: Speci men Type: BLOOD SPECIMEN Ordering Facility: [facility] Address: [address] [place] [address] Performed By: #### 2 4321-2 #### [facility] CLIA [id number] [address] Platelets (Bld) [#/Vol] 162 10*3/uL Normal 150-400 [facility] Comment on above: Order Comment: Speci men Type: BLOOD SPECIMEN Ordering Facility: [facility] Address: [address] [address] Performed By: #### 2 4321-2 #### [facility] CLIA [id number] [address] [place] RBC (Bld) [#/Vol] 3.99 10*6/uL Normal 3.90-5.20 [facility] Comment on above: Order Comment: Speci men Type: BLOOD SPECIMEN Ordering Facility: [facility] Address: [address] [address] Performed By: #### 2 4321-2 #### [facility] CLIA [id number] [address] STATES OF [facility] WBC (Bld) [#/Vol] 12.20 10*3/uL High 3.70-11.00 [facility] Comment on above: Order Comment: Speci men Type: BLOOD SPECIMEN Ordering Facility: [facility] Address: [address] [address] Performed By: #### 2 4321-2 #### [facility] CLIA [id number] [address] [place] Calcium.ionized [Moles/Vol]o n 07-06-2023 Calcium.ionized (BldV) [Mass/Vol] 1.15 mmol/L Normal 1.08-1.30 [facility] Comment on above: Order Comment: Speci men Type: BLOOD SPECIMEN Ordering Facility: [facility] Address: [address] [address] Performed By: #### 1 995-0 #### [facility] CLIA [id number] [address] OF [facility] Calcium.ionized adjusted to pH 7.4 (Bld) [Moles/Vol] 1.14 mmol/L Normal 1.08-1.30 [facility] Comment on above: Order Comment: Speci men Type: BLOOD SPECIMEN Ordering Facility: [facility] Address: [address] [address] Performed By: #### 1 995-0 #### [facility] CLIA [id number] [address] [place] [address] [place] Magnesium SerPl-mCncon 07-06 Magnesium [Mass/Vol] 2.5 mg/dL High 1.7-2.3 [facility] Comment on above: Order Comment: Tyesha mason Type: BLOOD SPECIMEN Ordering Facility: [facility] Address: [address] [place] [address] Performed By: #### 2 4321-2 #### [facility] CLIA [id number] [address] [place] [address] [place] NURSING PROGon 07-06-2023 NURSING PROG HNO ID: [id number] Author: Devang Kessler RN Service: ? Author Type: Registered Nurse Type: Nursing Progress Note Filed: 07/06/2023 3:45 PM Note Text: Transfer Note: PATIENT NAME: Jessica Ash Patient Location: [place] [address] [address] 07-10 Room: [place] [address] Patient transferred out to room/unit 4210 in stable condition. Actions taken: Report given/called to RN Normal [facility] Phosphate SerPl-mCncon 07-06 Phosphate [Mass/Vol] 2.8 mg/dL Normal 2.7-4.8 [facility] Comment on above: Order Comment: Tyesha mason Type: BLOOD SPECIMEN Ordering Facility: [facility] Address: [address] [place] [address] Performed By: #### 2 4321-2 #### [facility] CLIA [id number] 1 [place] [address] [place] XR CHEST 1V FRONTALon 2022 XR CHEST 1V FRONTAL * * *Final Report* * * DATE OF EXAM: Jul 06 2023 5:00AM AKX 5290 - XR CHEST 1V FRONTAL / PROCEDURE REASON: Post-operative / post-procedure assessment, asymptomatic * * * * Physician Interpretation * * * * EXAMINATION: CHEST RADIOGRAPH (SINGLE VIEW AP OR PA) CLINICAL HISTORY: Post-operative / post-procedure assessment, asymptomatic, Post-operative/post-pro cedure assessment MQ: XC1_5 Comparison: 07/05/2023 RESULT: Lines, tubes, and devices: Stable left chest tube in position. Lungs and pleura: Stable scarring in the left lateral and left basilar lung. No pneumothorax. No new focal consolidation. No pleural effusion. Cardiomediastinal silhouette: Stable Other: No acute osseous finding. 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 IMPRESSION: No new acute finding. Stable chest radiograph. Professional Shopper: P[facility] Transcribe Date/Time: Jul 06 2023 9:06A Dictated by : MICHELLE CABRERA MD This examination was interpreted and the report reviewed and electronically signed by: MICHELLE CABRERA MD on Jul 06 2023 9:07AM EST [id number] Normal [facility] ALLIED HEALTHon 07-05-2023 ALLIED HEALTH HNO ID: [id number] Author: Tommy Rodriguez RT(R) Service: Radiology Author Type: Technologist Type: Allied Health Filed: 07/05/2023 4:56 AM Note Text: Radiology Service Progress Note PATIENT NAME: Jessica Ash DATE OF SERVICE: July 05, 2023 TIME: 4:56 AM PATIENT IDENTITY VERIFICATION COMPLETED USING TWO (2) IDENTIFIERS: Name and Date of confirmed by patient verbally and Name and Date of confirmed by identification band. FALL SCREENING: Has the patient had 2 falls in the last year or 1 fall with injury or currently using an Ambulatory Assistive Device (Walker, Cane, Wheelchair, Crutches, etc.)? Inpatient: Screened on floor PATIENT GENDER DATA: Female. status: : No status: NO. PATIENT RELEVANT IMPLANT DATA REVIEWED: Not Applicable RADIOLOGY DEPARTMENT: General X-ray: Exam(s) Completed: Chest X-Ray PERIPHERAL IV DATA: Not applicable SIGNED BY: RT Bladimir(R) July 05, 2023 4:56 AM Normal [facility] Basic metabolic 2000 panelon 07-05-2023 Anion gap [Moles/Vol] 9 mmol/L Normal 9-18 [facility] Comment on above: Order Comment: Speci men Type: BLOOD SPECIMEN Ordering Facility: [facility] Address: [address] [place] [id number] Performed By: #### 2 4321-2 #### [facility] CLIA [id number] [address] [place] Calcium [Mass/Vol] 8.4 mg/dL Low 8.5-10.2 [facility] Comment on above: Order Comment: Speci men Type: BLOOD SPECIMEN Ordering Facility: [facility] Address: [address] [place] [address] Performed By: #### 2 4321-2 #### [facility] CLIA [id number] [address] [place] Chloride [Moles/Vol] 100 mmol/L Normal 97-105 [facility] Comment on above: Order Comment: Speci men Type: BLOOD SPECIMEN Ordering Facility: [facility] Address: [address] [place] [address] Performed By: #### 2 4321-2 #### [facility] CLIA [id number] [address] CO2 [Moles/Vol] 24 mmol/L Normal 22-30 [facility] Comment on above: Order Comment: Speci men Type: BLOOD SPECIMEN Ordering Facility: [facility] Address: [address] [place] [address] Performed By: #### 2 4321-2 #### [facility] CLIA [id number] [address] OF [facility] Creatinine [Mass/Vol] 0.69 mg/dL Normal 0.58-0.96 [facility] Comment on above: Order Comment: Speci men Type: BLOOD SPECIMEN Ordering Facility: [facility] Address: [address] [place] [address] Performed By: #### 2 4321-2 #### [facility] CLIA [id number] [address] Creatinine and Glomerular filtration rate.predicted panel (S/P/Bld) 90 mL/min/1.73m??? Normal >=60 [facility] Comment on above: Order Comment: Speci men Type: BLOOD SPECIMEN Ordering Facility: [facility] Address: [address] [place], [place] [id number] Result Comment: Reyna mated Glomerular Filtration Rate (eGFR) is calculated using the 2020 CKD-EPI creatinine equation. This equation utilizes serum creatinine, sex, and age as parameters. The creatinine assay has traceable calibration to isotope dilution-mass spectrometry. Refer to KDIGO guidelines for clinical interpretation. In patients with unstable renal function, e.g. those with acute kidney injury, the eGFR may not accurately reflect actual GFR. Performed By: #### 2 4321-2 #### [facility] CLIA [id number] 1 [place] [address] [place] Glucose [Mass/Vol] 156 mg/dL High 74-99 [facility] Comment on above: Order Comment: Tyesha mason Type: BLOOD SPECIMEN Ordering Facility: [facility] Address: [address] [place] [address] Result Comment: The [place] Diabetes Association (ADA) provides guidance for cutoff values for fasting glucose and random glucose. The ADA defines fasting as no caloric intake for at least 8 hours. Fasting plasma glucose results between 100 to 125 mg/dL indicate increased risk for diabetes (prediabetes). Fasting plasma glucose results greater than or equal to 126 mg/dL meet the criteria for diagnosis of diabetes. In the absence of unequivocal hyperglycemia, results should be confirmed by repeat testing. In a patient with classic symptoms of hyperglycemia or hyperglycemic crisis, random plasma glucose results greater than or equal to 200 mg/dL meet the criteria for diagnosis of diabetes. Reference: Standards of Medical Care in Diabetes 2016, [place] Diabetes Association. Diabetes Care. 2016.39(Suppl 1). Performed By: #### 2 4321-2 #### [facility] CLIA [id number] [address] [place] [address] [place] Potassium [Moles/Vol] 4.5 mmol/L Normal 3.7-5.1 [facility] Comment on above: Order Comment: Tyesha mason Type: BLOOD SPECIMEN Ordering Facility: [facility] Address: [address] [place], [place] [id number] Performed By: #### 2 4321-2 #### [facility] CLIA [id number] [address] Sodium [Moles/Vol] 133 mmol/L Low 136-144 [facility] Comment on above: Order Comment: Speci men Type: BLOOD SPECIMEN Ordering Facility: [facility] Address: [address] [place] [address] Performed By: #### 2 4321-2 #### [facility] CLIA [id number] [address] [place] Urea nitrogen [Mass/Vol] 18 mg/dL Normal 7-21 [facility] Comment on above: Order Comment: Speci men Type: BLOOD SPECIMEN Ordering Facility: [facility] Address: [address] [place] [address] Performed By: #### 2 4321-2 #### [facility] CLIA [id number] [address] OF [facility] CASE MANAGEMon 07-05-2023 CASE MANAGEM HNO ID: [id number] Author: Teresa Starr LSW Service: ? Author Type: Visiting Professor Type: Care Mgt Progress Note Filed: 07/05/2023 10:39 AM Note Text: CARE MANAGEMENT PROGRESS NOTE SERVICE DATE: 07/05/2023 SERVICE TIME: 10:39 AM LOS: 1 day IMM Follow Up Copy Given: Yes Copy given to:: Patient Method: In Person Pt gave verbal understanding of medicare rights. SIGNATURE: TOÑO Milian PATIENT NAME: Jessica Ash DATE: July 05, 2023 TIME: 10:39 AM PAGER/CONTACT #: [phone] Normal [facility] CASE MGT INIT ASSESon 2022 CASE MGT INIT ASSES HNO ID: [id number] Author: Teresa Starr LSW Service: ? Author Type: Visiting Professor Type: Care Mgt Initial Assessment Filed: 07/05/2023 10:38 AM Note Text: CARE MANAGEMENT: ASSESSMENT AND DISCHARGE PLAN SERVICE DATE: July 05, 2023 SERVICE TIME: 10:36 AM PCP: Corinne Panda DO, DO Primary Contact: Extended Emergency Contact Information Primary Emergency Contact: Shiraz Monzon Mobile Relation: Son Secondary Emergency Contact: Naeem Ash Address: [address] [place] [id number] [place] [address] Mobile Relation: Ex Spouse Volunteer Recruitment Coordinator needed? No Admission Status: Inpatient Insurance Provider: MEDICARE A AND B Discharge Planning requested by: Per Department Practice Potential Transition Plans Home;To Be Determined;Home Care Advance Directives Current Advance Directive: None Hiv Prevention Specialist Attempted to Assist with AD Completion: Yes Action: Education Provided Current Living Arrangements and Support Lives with: Children (grand daughter that is DD) Type of Residence: Private Residence (House) Does the patient have to climb stairs at home?: stairs within the home Support: Family members How do you manage to accomplish the following: Independent: Ambulation;Bathe/Shower ;Dress;Meals/Meal Prep;Going to the bathroom;Medication Management;Transportati on to appointments/community Current Services/Equipment Current Post-Acute Service(s): DME, Oxygen Current O2 Usage (device, rate, continuous/pulse and hrs per day): 2 LPM Current DME Type: Continuous Positive Airway Pressure Current Post-Acute Service(s) Provider: chucho for o2 Discharge Planning Patient Goal(s): Be able to go home, Increase strength [place] of Choice Explained: [place] of [place] Given: No Reason Not Given: Unable to complete with this assessment - revisit Are you interested in bedside delivery of your medications? No Discharge Planning Participant(s): Patient Patient/Family Comments: chest pain/ lobectomy of lung Caregiver Assessment: Transport at Discharge: Transportation Arrangements: Car Needs Prior to Discharge: Needs Prior to Discharge: To Be Determined;OT/PT Evaluation Post-Acute Discharge Plan: Home, TBD SW met with pt at bedside. Pt feeling some pain she states. Pt from home with grand daughter Genevieve who has developmental disability. Pt uses 2L O2 at baseline, no SNF or HHC history, is usually active at baseline but is not sure at d/c. 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 Could benefit from pt/ot. Ex naeem to transport home per pt. SIGNATURE: TOÑO Milian PATIENT NAME: Jessica Ash DATE: July 05, 2023 TIME: 10:36 AM CONTACT #: [id number] Normal [facility] CBC panel Auto (Bld)on 07-05 Erythrocyte distribution width (RBC) [Ratio] 14.2 % Normal 11.5-15.0 [facility] Comment on above: Order Comment: Speci men Type: BLOOD SPECIMEN Ordering Facility: [facility] Address: [address] [place] [address] Performed By: #### 5 8410-2 #### [facility] CLIA [id number] [address] OF [facility] Hematocrit (Bld) [Volume fraction] 36.1 % Normal 36.0-46.0 [facility] Comment on above: Order Comment: Speci men Type: BLOOD SPECIMEN Ordering Facility: [facility] Address: [address] [place] [address] Performed By: #### 5 8410-2 #### [facility] CLIA [id number] [address] [place] [address] Hemoglobin (Bld) [Mass/Vol] 11.8 g/dL Normal 11.5-15.5 [facility] Comment on above: Order Comment: Speci men Type: BLOOD SPECIMEN Ordering Facility: [facility] Address: [address] [place] [address] Performed By: #### 5 8410-2 #### [facility] CLIA [id number] [address] MCH (RBC) [Entitic mass] 29.3 pg Normal 26.0-34.0 [facility] Comment on above: Order Comment: Speci men Type: BLOOD SPECIMEN Ordering Facility: [facility] Address: [address] [place] [address] Performed By: #### 5 8410-2 #### [facility] CLIA [id number] [address] STATES OF [facility] MCHC (RBC) [Mass/Vol] 32.7 g/dL Normal 30.5-36.0 [facility] Comment on above: Order Comment: Speci men Type: BLOOD SPECIMEN Ordering Facility: [facility] Address: [address] [place] [address] Performed By: #### 5 8410-2 #### [facility] CLIA [id number] [address] MCV (RBC) [Entitic vol] 89.6 fL Normal 80.0-100.0 [facility] Comment on above: Order Comment: Speci men Type: BLOOD SPECIMEN Ordering Facility: [facility] Address: [address] [place] [address] Performed By: #### 5 8410-2 #### [facility] CLIA [id number] [address] Nucleated RBC (Bld) [#/Vol] 10*3/uL Normal <0.01 [facility] Comment on above: Order Comment: Speci men Type: BLOOD SPECIMEN Ordering Facility: [facility] Address: [address] [place] [address] Performed By: #### 5 8410-2 #### [facility] CLIA [id number] [address] Platelet mean volume (Bld) [Entitic vol] 9.5 fL Normal 9.0-12.7 [facility] Comment on above: Order Comment: Speci men Type: BLOOD SPECIMEN Ordering Facility: [facility] Address: [address] [place] [address] Performed By: #### 5 8410-2 #### [facility] CLIA [id number] [address] Platelets (Bld) [#/Vol] 225 10*3/uL Normal 150-400 [facility] Comment on above: Order Comment: Speci men Type: BLOOD SPECIMEN Ordering Facility: [facility] Address: [address] [place] [address] Performed By: #### 5 8410-2 #### [facility] CLIA [id number] [address] [place] [address] [place] RBC (Bld) [#/Vol] 4.03 10*6/uL Normal 3.90-5.20 [facility] Comment on above: Order Comment: Aubriephil mason Type: BLOOD SPECIMEN Ordering Facility: [facility] Address: [place] [address] Performed By: #### 5 8410-2 #### [facility] CLIA [id number] [address] OF [facility] WBC (Bld) [#/Vol] 10.66 10*3/uL Normal 3.70-11.00 [facility] Comment on above: Order Comment: Tyesha mason Type: BLOOD SPECIMEN Ordering Facility: [facility] Address: [place] [address] Performed By: #### 5 8410-2 #### [facility] CLIA [id number] [address] CONSULT PROGon 07-05-2023 CONSULT PROG HNO ID: [id number] Author: April Mandujano MD Service: General Surgery Author Type: Resident Type: Consult Progress Note Filed: 07/05/2023 6:21 AM Note Text: Attestation signed by Shade Riley MD at 07/09/2023 9:01 PM I personally saw and examined the patient on 07/05. I reviewed the resident's note. I agree with the resident's assessment and plan unless otherwise noted. Thoracic Surgery Progress Note SERVICE DATE: July 05, 2023 Vascular and Thoracic Service Pager: For questions or concerns Mon-Fri 6a-5p please page [phone]. After 5pm and on Weekends and Holidays, please page [phone] if in ICU or [phone] if on RNF. Subjective SUBJECTIVE: NAEO. Patient resting comfortably in bed. Diet: DIET REGULAR Objective OBJECTIVE: Vitals: Temp (24hrs), Av.2 ?C (99 ?F), Min:35.5 ?C (95.9 ?F), Max:38 ?C (100.4 ?F) BP 142/69 Pulse 64 Temp (!) 38 ?C (100.4 ?F) Resp 13 SpO2 97% O2 Therapy: Nasal Cannula IANDO: Date 07/04/23699 - 07/05/23 0659 07/05/23 07 - 07/06/23 0659 Shift 6075-9698 9616-3846 1548-5101 24 Hour Total 2474-1649 9107-2528 6350-4861 24 Hour Total INTAKE IV 1750 1750 Volume (mL) (lactated ringers iv infusion) 1350 1350 Volume (mL) (NaCl 0.9% iv infusion) 400 400 Shift Total 1750 1750 OUTPUT Urine 345 480 90 915 OR Urine Output 225 225 Output ( Indwelling Urinary Catheter 07/04/23 [facility] Facility Temperature Monitoring 16 Fr) 120 480 90 690 Chest Tube 160 140 50 350 Chest Tube Output (Chest Tube 07/04/23 Left Pleural 32 Fr Tube #1) 160 140 50 350 Shift Total 505 740 864 7394 Weight (kg) MEDICATIONS Current Facility-Administered Medications Medication Dose Route Frequency escitalopram oxalate 20 mg tab(s) (LEXAPRO) 20 mg ORAL DAILY levothyroxine 50 mcg tab(s) (SYNTHROID) 50 mcg ORAL DAILY (6 AM) enoxaparin 40 mg injection (LOVENOX) 40 mg SUBCUTANEOUS DAILY NaCl 0.9% iv flush bag 20 mL INTRAVENOUS PRN HYDROmorphone (PF) 0.2-0.4 mg injection (DILAUDID) 0.2-0.4 mg INTRAVENOUS q 3 H PRN LORazepam 0.5-1 mg tab(s) (ATIVAN) 0.5-1 mg ORAL TID PRN Labs: Recent Labs 07/05/23 0602 07/04/23 1600 07/04/23 1527 NA -- -- 138 K -- -- 3.9 CHLOR -- -- 105 CO2 -- -- 25 BUN -- -- 19 CREAT -- -- 0.69 GLUC -- -- 192* ANION -- -- 8* CA -- -- 8.3* WBC 10.66 -- 8.71 HB 11.8 -- 12.4 HCT 36.1 -- 39.0 PLT 225 -- 218 LACT -- 1.1 -- PH -- 7.26* -- PCO2 -- 56* -- PO2 -- 85 -- HCO3 -- 24 -- Physical Exam: GENERAL: No distress, Alert NEURO: AANDOx3, CN II-XII grossly intact HEENT: Normocephalic, atraumatic LUNGS: Equal chest rise, Unlabored breathing O2 Therapy: Nasal Cannula CARDIAC: Regular rate as above, warm extremities. CT in place to suction, no air leak 85 cc SS out overnight EXTREMITIES: MIHCAEL, No deformities, No edema SKIN: Skin color, texture, turgor normal, No rashes or lesions Assessment AND Plan ASSESSMENT AND PLAN: Assessment Active Hospital Problems Diagnosis Date Noted S/P lobectomy of lung 07/04/2023 Assessment: 78 year old female POD #1 s/p left lung lobectomy. Hospital Course/Operations/Proce dures: 07/04/2023 Procedure(s): LEFT UPPER LUNG LOBECTOMY, INTERCOSTAL BLOCK X4 WITH CRYO MEDIASTINAL LYMPH NODE DISSECTION BRONCHOSCOPY FLEXIBLE ADULT Plan: -Daily CXR while CT in place -Continue chest tube in place to -20 suction, monitor output -Continue ISS and encourage ambulation -LVX for DVT ppx -Pain and nausea control PRN INPATIENT ATTENDING: Shade Song MD, Elective High-Risk Geriatric Patient Vulnerabilities: Impaired Mobility Diet: DIET REGULAR Code Status: Not on file Recommendations: Cognition: No Cognitive Impairment Confusion Assessment Method (CAM - ICU Score): Negative Geriatric Consult (Age over 85 or impaired cognition):Consult not needed Palliative Care/Hospice: Consult not required Rehab/Therapy: PT/OT Recommendations: PT: OT: Swallow: Speech Recommendations: Speech: Speech Diet: Nutrition: Consult not required Nutrition Recommendations: MST: Total MST Score (Calculated): 0 Wharf Attendant: Pharmacy: Consult not needed Social Work: NA Anticipated Discharge Disposition: Discussed with attending: Dr. Riley SIGNATURE: April Mandujano MD PATIENT NAME: Jessica Ash DATE: July 05, 2023 TIME: 6:15 AM Pager: [phone] Vascular and Thoracic Service Pager: For questions or concerns Mon-Fri 6a-5p please page [phone]. After 5pm and on Weekends and Holidays, please page [phone] if in ICU or [phone] if on RNF. Normal [facility] NUTRITIONon 07-05-2023 NUTRITION HNO ID: [id number] Author: Kaley Fitch RD Service: Nutrition Therapy Author Type: Registered Dietitian Type: Nutrition Filed: 07/05/2023 2:56 PM Note Text: INITIAL ASSESSMENT SERVICE DATE: 07/05/2023 SERVICE TIME: 1216 PM Nutrition Assessment: Recommended Malnutrition Diagnosis: No Malnutrition Identified Nutrition Diagnosis: Problem: Suboptimal oral intake Related to: Acute illness As evidenced by: Medical condition, Procedure/surgery Estimated kilocalorie needs: 9486-6505 Calorie Calculation Method: 25-30 kcals/kg, [place] Body Weight Estimated protein needs (grams): 68-85 Grams protein determined by: 1.0 - 1.5 g/kg, [place] body weight Care Plan: Continue current diet Supplements: (Dislikes all supplements) Monitor and Evaluation: Monitor fluid/electrolyte balance, Meet greater than 75% of estimated needs, Monitor bowel function, Monitor labs, I/Os, vital signs, weight Discharge Recommendations: Diet Diet: Regular ------ HPI: 78 yo female, LOS 1 day, s/p left lung lobectomy - on regular diet with po poor, BM 07/03. Meds and labs reviewed - lytes noted, afebrile, no edema with wt stable - and GI wnl. Intake History: Nutrition Intake Prior to Admission: Greater than 75% estimated energy needs greater than or equal to 3 months Current Nutrition Intake: 0-25% estimated energy needs Current Intake Over time: (1 day) Diet Orders (From admission, onward) Start Ordered 07/04/23 1530 DIET REGULAR START NOW Question: Feeding instructions for nursing Answer: Please note allergy to Eggs and Vegetables 07/04/23 1520 Anthropometrics: Dosing Weight: 56.7 kg (125 lb) Usual Weight: 88 kg (194 lb 0.1 oz) Past 10 months Usual Weight Obtained From: Chart Review There is no height or weight on file to calculate BMI. Weight change percentage over time: Stable Last Wt 07/01/23 : 86.2 kg (190 lb) 07/01/23 : 86.4 kg (190 lb 6.4 oz) 06/29/23 : 86.6 kg (191 lb) 06/27/23 : 86.6 kg (191 lb) 06/01/23 : 87.6 kg (193 lb 3.2 oz) 01/23/23 : 87.1 kg (192 lb) 08/20/22 : 88 kg (194 lb) - 10 months 02/13/22 : 87.5 kg (193 lb) 10/26/21 : 88.9 kg (196 lb) 09/15/18 : 90.3 kg (199 lb) 01/23/07 : 116 kg (255 lb 11.7 oz) Physical Exam: Subcutaneous fat loss: No fat loss Muscle loss: Mild Potential micronutrient deficiency: No deficiency identified Edema/Ascites: No edema GI Symptoms: None Functional Status: No Change Potential Signs of Inflammation: Chronic condition, Critically ill, Hypoalbuminemia, Hyperglycemia, Imaging studies COPD, Lung Cancer MNT Billing: $ Initial Assessment: 1-15 minutes SIGNATURE: Kaley Fitch RD PATIENT NAME: Jessica Ash DATE: July 05, 2023 TIME: 10:39 AM Normal [facility] XR CHEST 1V FRONTALon 2022 XR CHEST 1V FRONTAL * * *Final Report* * * DATE OF EXAM: Jul 05 2023 4:39AM AKX 5290 - XR CHEST 1V FRONTAL / PROCEDURE REASON: Post-operative / post-procedure assessment, asymptomatic * * * * Physician Interpretation * * * * EXAMINATION: CHEST RADIOGRAPH (SINGLE VIEW AP OR PA) CLINICAL HISTORY: Post-operative / post-procedure assessment, asymptomatic, Post-operative/post-pro cedure assessment MQ: XC1_5 Comparison: 07/04/2023 RESULT: Lines, tubes, and devices: Left-sided chest tube with tip directed towards left apex. Stable position. Overlying cardiac cath tech leads. Lungs and pleura: No residual left-sided pneumothorax. Patchy diminished aeration at the left lung base medially. Small right lung volume with probable atelectasis at right lung base and small right-sided pleural effusion. Cardiomediastinal silhouette: Stable. Other: Slight increase in air seen within the left chest wall. Gaseous dilatation of bowel in the left upper quadrant. New since prior exam. IMPRESSION: Stable positioning left-sided chest tube. Decreased aeration at left lung base most likely atelectasis. Dilatation of bowel noted in the left upper quadrant. Professional Shopper[facility] Transcribe Date/Time: Jul 05 2023 6:43A Dictated by : FANG SCHMITT MD This examination was interpreted and the report reviewed and electronically signed by: FANG SCHMITT MD on Jul 05 2023 6:45AM EST [id number] Normal [facility] ALK (D5F3)on 07-04-2023 ALK-D5F3 Normal [facility] Comment on above: Order Comment: Speci men Type: TISSUE SPECIMEN Ordering Facility: [facility] Address: [address] [place] [address] Result Comment: Lung Biomarkers ALK (D5F3) IMMUNOHISTOCHEMISTRY ASSAY Results: Interpretation: Negative Block evaluated: G6 Reference range for ALK (D5F3): Positive: strong and diffuse cytoplasmic staining in any number of tumor cells Equivocal: weak and/or focal cytoplasmic staining Negative: absence of cytoplasmic staining tumor cells. Interpretation comments: As fluorescent in situ hybridization can be useful in resolving equivocal IHC results, any equivocal results will be reflexed to [facility]K-FISH. The results of the molecular study will be reported separately. METHODS: Immunohistochemistry was performed on formalin fixed paraffin-embedded tissue using the rabbit monoclonal antibody [id number] ([employer], [place], [place]) followed by ultrasensitive bright field detection (Optiview with amplification [[employer], [place], [place]]). Laboratory Developed Test (LDT) Disclaimer: Performance characteristics of immunohistochemical, immunofluorescent and chromogenic in-situ hybridization tests have been determined by the performing laboratory within [facility]???[facility] ([facility], [facility], [facility], [facility], [facility], [facility], or [facility]) in a manner consistent with CLIA requirements. One or more of these tests have not been cleared or approved by the FDA. [facility] is regulated under CLIA as qualified to perform high-complexity testing. These tests are used for clinical purposes. They should not be regarded as investigational or for research. Positive and negative controls stain appropriately. Reference: Alfonso M, Kevin PENN, K, et al. A novel, highly sensitive antibody allows for the routine detection of ALK- rearranged lung adenocarcinomas by standard immunohistochemistry. Clin Cancer Res; 16 (5): 1561-71, 2010. The diagnostic interpretation was performed at [facility], [address] [place] [address] CLIA# [id number] Electronically signed out by: Sam Soriano MD Performed By: #### S #### [facility] CLIA [id number] [address] [place] [address] [place] #### [id number], [id number] #### [facility] CLIA [id number] [address] [place] [address] [place] #### RET, ROS1, TOPTO #### [facility] CLIA [id number] [address] [place] [address] [place] ALLIED HEALTHon 07-04-2023 ALLIED HEALTH HNO ID: [id number] Author: Iva Quintana Chaplain Service: ? 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 Daughter and son-in-law were at the bedside, several other family members are in the waiting room. Prayed. To contact the [facility]: Please call [phone]. SIGNATURE: Chaplain Panda PATIENT NAME: Jessica Ash DATE: July 04, 2023 TIME: 7:50 AM PAGER/CONTACT #: [phone] Normal [facility] ANES POSTPROC EVALon 023 ANES POSTPROC EVAL HNO ID: [id number] Author: Surinder Mendoza MD Service: Anesthesiology Author Type: Anesthesiologist Type: Anesthesia Postprocedure Evaluation Filed: 07/04/2023 3:23 PM Note Text: POST ANESTHESIA EVALUATION NOTE : 1945 Procedure Summary Date: 07/04/23 Room / Location: [place] [address] [place] [address] OR Anesthesia Start: 851 Anesthesia Stop: 1428 Procedures: LEFT UPPER LUNG LOBECTOMY, INTERCOSTAL BLOCK X4 WITH CRYO (Left: Lung lobe upper) MEDIASTINAL LYMPH NODE DISSECTION (Chest) BRONCHOSCOPY FLEXIBLE ADULT (Bronchus) Diagnosis: Carcinoma, lung, left (HCC) (Carcinoma, lung, left (HCC) [C34.92]) Surgeons: Shade Riley MD Responsible Provider: Surinder Mendoza MD Anesthesia Type: general ASA Status: 3 Anesthesia Type: general Airway Type: ETT Last Vitals Vitals Value Taken Time BP 125/82 07/04/23 1522 Temp 35.5 ?C (95.9 ?F) 07/04/23 1500 Pulse 60 07/04/23 1522 Resp 10 07/04/23 1522 SpO2 94 % 07/04/23 1522 Vitals shown include unvalidated device data. Post Anesthesia Patient Status Patient Evaluation: PACU. PACU/ICU Patient Condition: stable. Anticipated Disposition: inpatient floor planned admission. Neurological Status: aware and responsive. Pulmonary Status: breathing comfortably on supplemental oxygen Airway Control: returned to baseline unsupported. Cardiovascular Status: stable. Pain Management: clinically adequate - multimodal analgesia pain management approach Postoperative Hydration: acceptable. Intraoperative Events: no significant anesthesia events Recommendation: continue current plan of care. Anesthesia Observations No Documentation SIGNATURE: Surinder Mendoza MD PATIENT NAME: Jessica Ash DATE: July 04, 2023 TIME: 3:22 PM CSN: [id number] Normal [facility] ANES PRE-OPon 07-04-2023 ANES PRE-OP HNO ID: [id number] Author: Surinder Mendoza MD Service: Anesthesiology Author Type: Anesthesiologist Type: Anesthesia Preprocedure Evaluation Filed: 07/04/2023 7:57 AM Note Text: ANESTHESIOLOGY DAY OF SURGERY NOTE : 1945 Procedure Information Date/Time: 07/04/23 0800 Procedures: LOBECTOMY LUNG SINGLE LOBE (Left: Lung lobe upper) DISSECTION MEDIASTINAL LYMPH NODE (Chest) [place]: [place] Surgeons: Shade Riley MD Estimated body mass index is 31.62 kg/m? as calculated from the following: Height as of 07/01/23: 165.1 cm (5' 5). Weight as of 07/01/23: 86.2 kg (190 lb). Most recent hematocrit and potassium results: Hematocrit 41.1 06/28/2023 Potassium 4.1 06/28/2023 Relevant Problems ANESTHESIA (+) Unspecified sleep apnea CARDIO (+) Mitral valve prolapse ENDO (+) Unspecified hypothyroidism PULMONARY (+) Chronic obstructive lung disease (HCC) (+) Shortness of breath (+) Unspecified sleep apnea #multiple medication allergies; see anesthesia consult note #Lung mass presenting for lobectomy I - PHYSICAL EVALUATION AIRWAY Patient intubated: No. Tracheostomy tube not present Mallampati: II. TM distance: >3 FB. Neck ROM: full ROM without neurological symptoms. Mouth opening: adequate. Short neck: yes. Thick neck: no DENTAL Dental findings: edentulous. II - ANESTHESIA PLAN ASA Score: 3 Anesthetic Plan: general Airway type: ETT NPO Status: adequate Anesthetic plan additional comments: JEMMA. Beta Aysha Monitoring Plan Monitoring plan: standard ASA and invasive hemodynamic monitoring. Monitoring method: arterial Line Post Procedure Analgesic Plan Postoperative analgesic plan: parenteral or oral opioids, multimodal analgesia and per surgical service. Informed Consent Anesthetic risks, benefits, alternatives, personnel and consent discussed: yes. Patient / Responsible Libertarian agrees to proceed: yes Patient / Surrogate agrees to blood products: Yes Vitals Value Taken Time BP 142/69 07/04/23 0738 Pulse 51 07/04/23 0738 Resp 18 07/04/23737 Temp 35.6 ?C (96.1 ?F) 07/04/23737 SpO2 98 % 07/04/23737 No current facility-administered medications on file as of 07/04/2023. Outpatient Medications as of 07/04/2023 Medication Sig - olopatadine (PATANOL) 0.1 % ophthalmic solution INSTILL 1 DROP INTO BOTH EYES TWICE DAILY NEEDED AT 6-8 HOUR INTERVALS. - levothyroxine (SYNTHROID) 50 mcg tablet Take 50 mcg by mouth. Two tablet at breakfast, pt only takes synthroid not levothyroxine - escitalopram oxalate (LEXAPRO) 20 mg tablet Take 20 mg by mouth once daily. - lorazepam (ATIVAN) 1 mg ORAL Tab Take 1 mg by mouth three times daily as needed. - blood sugar diagnostic (COINPLUSTOUCH ULTRA BLUE TEST STRIP [employer] USE TO TEST BLOOD SUGAR DAILY DX E11.9 - EPINEPHrine (EPIPEN) 0.3 mg/0.3 mL auto-injector as needed (Patient not taking: Reported on 07/01/2023) I have interviewed and examined the patient. I have reviewed the medical record and/or the pre-anesthesia evaluation, pertinent labs, and test results. This contains updated information obtained within 48 hours of Surgery/Procedure. SIGNATURE: Surinder Mendoza MD PATIENT NAME: Jessica Ash DATE: July 04, 2023 TIME: 7:53 AM CSN: [id number] Normal [facility] ARTERIAL BLOOD GASESon 07-04 Base deficit (BldA) [Moles/Vol] -3 mmol/L Low -2-0 [facility] Comment on above: Order Comment: Tyesha mason Type: ARTERIAL BLOOD SPECIMEN Ordering Facility: [facility] Address: [address] [place] [address] Performed By: #### A LLBG #### [facility] CLIA [id number] [address] [place] [address] [place] Body temperature 98.6 [degF] Normal [facility] Comment on above: Order Comment: Tyesha men Type: ARTERIAL BLOOD SPECIMEN Ordering Facility: [facility] Address: [address] [place] [address] Performed By: #### A LLBG #### [facility] CLIA [id number] [address] [place] Calcium.ionized (BldV) [Mass/Vol] 1.21 mmol/L Normal 1.08-1.30 [facility] Comment on above: Order Comment: Speci men Type: ARTERIAL BLOOD SPECIMEN Ordering Facility: [facility] Address: [address] [place] [address] Performed By: #### A LLBG #### [facility] CLIA [id number] [address] [place] Calcium.ionized adjusted to pH 7.4 (BldA) [Moles/Vol] 1.12 mmol/L Normal 1.08-1.30 [facility] Comment on above: Order Comment: Speci men Type: ARTERIAL BLOOD SPECIMEN Ordering Facility: [facility] Address: [address] [place] [address] Performed By: #### A LLBG #### [facility] CLIA [id number] [address] [place] [address] [place] Carboxyhemoglobin (BldA) [Mass fraction] 1.3 % Normal 0.0-2.0 [facility] Comment on above: Order Comment: Speci men Type: ARTERIAL BLOOD SPECIMEN Ordering Facility: [facility] Address: [address] [place] [address] Result Comment: Carb oxyhemoglobin Reference Range for Smokers: 2.0-8.0% Performed By: #### A LLBG #### [facility] CLIA [id number] [address] [place] [address] [place] Chloride [Moles/Vol] 107 mmol/L Normal 102-109 [facility] Comment on above: Order Comment: Speci men Type: ARTERIAL BLOOD SPECIMEN Ordering Facility: [facility] Address: [address] [place] [address] Performed By: #### A LLBG #### [facility] CLIA [id number] [address] [place] CO2 (Bld) [Partial pressure] 56 mm Hg High 36-46 [facility] Comment on above: Order Comment: Speci men Type: ARTERIAL BLOOD SPECIMEN Ordering Facility: [facility] Address: [address] [place] [address] Performed By: #### A LLBG #### [facility] CLIA [id number] [address] [place] Glucose [Mass/Vol] 214 mg/dL High 60-105 [facility] Comment on above: Order Comment: Speci men Type: ARTERIAL BLOOD SPECIMEN Ordering Facility: [facility] Address: [address] [address] Performed By: #### A LLBG #### [facility] CLIA [id number] [address] [place] HCO3 (Bld) [Moles/Vol] 24 mmol/L Normal 22-26 [facility] Comment on above: Order Comment: Speci men Type: ARTERIAL BLOOD SPECIMEN Ordering Facility: [facility] Address: [address] [place] [address] Performed By: #### A LLBG #### [facility] CLIA [id number] [address] [place] Hematocrit (Bld) [Volume fraction] 28.4 % Low 36.0-46.0 [facility] Comment on above: Order Comment: Speci men Type: ARTERIAL BLOOD SPECIMEN Ordering Facility: [facility] Address: [address] [place] [address] Performed By: #### A LLBG #### [facility] CLIA [id number] [address] [place] Hemoglobin (Bld) [Mass/Vol] 9.2 g/dL Low 11.5-15.5 [facility] Comment on above: Order Comment: Speci men Type: ARTERIAL BLOOD SPECIMEN Ordering Facility: [facility] Address: [address] [place] [address] Performed By: #### A LLBG #### [facility] CLIA [id number] [address] [place] Lactate [Moles/Vol] 1.1 mmol/L Normal 0.5-2.2 [facility] Comment on above: Order Comment: Speci men Type: ARTERIAL BLOOD SPECIMEN Ordering Facility: [facility] Address: [address] [place] [address] Performed By: #### A LLBG #### [facility] CLIA [id number] [address] Methemoglobin (Bld) [Mass fraction] 0.6 % Normal 0.0-1.5 [facility] Comment on above: Order Comment: Speci men Type: ARTERIAL BLOOD SPECIMEN Ordering Facility: [facility] Address: [address] [place] [address] Performed By: #### A LLBG #### [facility] CLIA [id number] [address] O2 THERAPY Simple Face Mask Normal [facility] Comment on above: Order Comment: Speci men Type: ARTERIAL BLOOD SPECIMEN Ordering Facility: [facility] Address: [address] [place] [address] Performed By: #### A LLBG #### [facility] CLIA [id number] [address] Oxygen (Bld) [Partial pressure] 85 mm Hg Normal 85-95 [facility] Comment on above: Order Comment: Speci men Type: ARTERIAL BLOOD SPECIMEN Ordering Facility: [facility] Address: [address] [place] [address] Performed By: #### A LLBG #### [facility] CLIA [id number] [address] Oxyhemoglobin (BldA) [Mass fraction] 94 % Low 95-98 [facility] Comment on above: Order Comment: Speci men Type: ARTERIAL BLOOD SPECIMEN Ordering Facility: [facility] Address: [address] [place] [address] Performed By: #### A LLBG #### [facility] CLIA [id number] [address] pH (Bld) 7.26 [pH] Low 7.35-7.45 [facility] Comment on above: Order Comment: Speci men Type: ARTERIAL BLOOD SPECIMEN Ordering Facility: [facility] Address: [address] [place] [address] Performed By: #### A LLBG #### [facility] CLIA [id number] [address] Potassium [Moles/Vol] 3.8 mmol/L Normal 3.5-5.0 [facility] Comment on above: Order Comment: Speci men Type: ARTERIAL BLOOD SPECIMEN Ordering Facility: [facility] Address: [address] [place] [address] Performed By: #### A LLBG #### [facility] CLIA [id number] [address] Sodium [Moles/Vol] 139 mmol/L Normal 136-144 [facility] Comment on above: Order Comment: Speci men Type: ARTERIAL BLOOD SPECIMEN Ordering Facility: [facility] Address: [address] [place] [address] Performed By: #### A LLBG #### [facility] CLIA [id number] [address] Basic metabolic 2000 panelon 07-04-2023 Anion gap [Moles/Vol] 8 mmol/L Low 9-18 [facility] Comment on above: Order Comment: Speci men Type: BLOOD SPECIMEN Ordering Facility: [facility] Address: [address] [address] Performed By: #### 2 4321-2 #### [facility] CLIA [id number] [address] Calcium [Mass/Vol] 8.3 mg/dL Low 8.5-10.2 [facility] Comment on above: Order Comment: Speci men Type: BLOOD SPECIMEN Ordering Facility: [facility] Address: [address] [address] Performed By: #### 2 4321-2 #### [facility] CLIA [id number] [address] [place] Chloride [Moles/Vol] 105 mmol/L Normal 97-105 [facility] Comment on above: Order Comment: Speci men Type: BLOOD SPECIMEN Ordering Facility: [facility] Address: [address] [address] Performed By: #### 2 4321-2 #### [facility] CLIA [id number] [address] CO2 [Moles/Vol] 25 mmol/L Normal 22-30 [facility] Comment on above: Order Comment: Speci men Type: BLOOD SPECIMEN Ordering Facility: [facility] Address: [address] [place] [address] Performed By: #### 2 4321-2 #### [facility] CLIA [id number] [address] Creatinine [Mass/Vol] 0.69 mg/dL Normal 0.58-0.96 [facility] Comment on above: Order Comment: Speci men Type: BLOOD SPECIMEN Ordering Facility: [facility] Address: [address] [place] [address] Performed By: #### 2 4321-2 #### [facility] CLIA [id number] [address] Creatinine and Glomerular filtration rate.predicted panel (S/P/Bld) 90 mL/min/1.73m??? Normal >=60 [facility] Comment on above: Order Comment: Speci men Type: BLOOD SPECIMEN Ordering Facility: [facility] Address: [address] [place] [address] Result Comment: Reyna mated Glomerular Filtration Rate (eGFR) is calculated using the 2020 CKD-EPI creatinine equation. This equation utilizes serum creatinine, sex, and age as parameters. The creatinine assay has traceable calibration to isotope dilution-mass spectrometry. Refer to KDIGO guidelines for clinical interpretation. In patients with unstable renal function, e.g. those with acute kidney injury, the eGFR may not accurately reflect actual GFR. Performed By: #### 2 4321-2 #### [facility] CLIA [id number] [address] [place] [address] [place] Glucose [Mass/Vol] 192 mg/dL High 74-99 [facility] Comment on above: Order Comment: Tyesha mason Type: BLOOD SPECIMEN Ordering Facility: [facility] Address: [address] [place] [address] Result Comment: The [place] Diabetes Association (ADA) provides guidance for cutoff values for fasting glucose and random glucose. The ADA defines fasting as no caloric intake for at least 8 hours. Fasting plasma glucose results between 100 to 125 mg/dL indicate increased risk for diabetes (prediabetes). Fasting plasma glucose results greater than or equal to 126 mg/dL meet the criteria for diagnosis of diabetes. In the absence of unequivocal hyperglycemia, results should be confirmed by repeat testing. In a patient with classic symptoms of hyperglycemia or hyperglycemic crisis, random plasma glucose results greater than or equal to 200 mg/dL meet the criteria for diagnosis of diabetes. Reference: Standards of Medical Care in Diabetes 2016, [place] Diabetes Association. Diabetes Care. 2016.39(Suppl 1). Performed By: #### 2 4321-2 #### [facility] CLIA [id number] [address] [place] [address] [place] Potassium [Moles/Vol] 3.9 mmol/L Normal 3.7-5.1 [facility] Comment on above: Order Comment: Tyesha mason Type: BLOOD SPECIMEN Ordering Facility: [facility] Address: [address] [place] [address] Performed By: #### 2 4321-2 #### [facility] CLIA [id number] [address] [place] [address] [place] Sodium [Moles/Vol] 138 mmol/L Normal 136-144 [facility] Comment on above: Order Comment: Speci men Type: BLOOD SPECIMEN Ordering Facility: [facility] Address: [address] [place] [address] Performed By: #### 2 4321-2 #### [facility] CLIA [id number] [address] [place] [address] [place] Urea nitrogen [Mass/Vol] 19 mg/dL Normal 7-21 [facility] Comment on above: Order Comment: Speci men Type: BLOOD SPECIMEN Ordering Facility: [facility] Address: [address] [place] [address] Performed By: #### 2 4321-2 #### [facility] CLIA [id number] [address] STATES [place] [facility] CBC panel Auto (Bld)on 07-04 Erythrocyte distribution width (RBC) [Ratio] 14.6 % Normal 11.5-15.0 [facility] Comment on above: Order Comment: Speci men Type: BLOOD SPECIMEN Ordering Facility: [facility] Address: [address] [place] [address] Performed By: #### 5 8410-2 #### [facility] CLIA [id number] [address] STATES [place] [facility] Hematocrit (Bld) [Volume fraction] 39.0 % Normal 36.0-46.0 [facility] Comment on above: Order Comment: Speci men Type: BLOOD SPECIMEN Ordering Facility: [facility] Address: [address] [place] [address] Performed By: #### 5 8410-2 #### [facility] CLIA [id number] [address] [place] [facility] Hemoglobin (Bld) [Mass/Vol] 12.4 g/dL Normal 11.5-15.5 [facility] Comment on above: Order Comment: Speci men Type: BLOOD SPECIMEN Ordering Facility: [facility] Address: [address] [place] [address] Performed By: #### 5 8410-2 #### [facility] CLIA [id number] [address] [place] MCH (RBC) [Entitic mass] 28.7 pg Normal 26.0-34.0 [facility] Comment on above: Order Comment: Speci men Type: BLOOD SPECIMEN Ordering Facility: [facility] Address: [address] [place] [address] Performed By: #### 5 8410-2 #### [facility] CLIA [id number] [address] MCHC (RBC) [Mass/Vol] 31.8 g/dL Normal 30.5-36.0 [facility] Comment on above: Order Comment: Speci men Type: BLOOD SPECIMEN Ordering Facility: [facility] Address: [address] [place] [address] Performed By: #### 5 8410-2 #### [facility] CLIA [id number] [address] MCV (RBC) [Entitic vol] 90.3 fL Normal 80.0-100.0 [facility] Comment on above: Order Comment: Speci men Type: BLOOD SPECIMEN Ordering Facility: [facility] Address: [address] [place] [address] Performed By: #### 5 8410-2 #### [facility] CLIA [id number] [address] Nucleated RBC (Bld) [#/Vol] 10*3/uL Normal <0.01 [facility] Comment on above: Order Comment: Speci men Type: BLOOD SPECIMEN Ordering Facility: [facility] Address: [address] [place] [address] Performed By: #### 5 8410-2 #### [facility] CLIA [id number] [address] Platelet mean volume (Bld) [Entitic vol] 9.5 fL Normal 9.0-12.7 [facility] Comment on above: Order Comment: Speci men Type: BLOOD SPECIMEN Ordering Facility: [facility] Address: [address] [place] [address] Performed By: #### 5 8410-2 #### [facility] CLIA [id number] [address] [place] Platelets (Bld) [#/Vol] 218 10*3/uL Normal 150-400 [facility] Comment on above: Order Comment: Speci men Type: BLOOD SPECIMEN Ordering Facility: [facility] Address: [address] [address] Performed By: #### 5 8410-2 #### [facility] CLIA [id number] [address] RBC (Bld) [#/Vol] 4.32 10*6/uL Normal 3.90-5.20 [facility] Comment on above: Order Comment: Speci men Type: BLOOD SPECIMEN Ordering Facility: [facility] Address: [address] [address] Performed By: #### 5 8410-2 #### [facility] CLIA [id number] [address] WBC (Bld) [#/Vol] 8.71 10*3/uL Normal 3.70-11.00 [facility] Comment on above: Order Comment: Speci men Type: BLOOD SPECIMEN Ordering Facility: [facility] Address: [address] [place] [address] Performed By: #### 5 8410-2 #### [facility] CLIA [id number] [address] CONFIRM BLOOD TYPEon 023 ABO O Normal [facility] Comment on above: Order Comment: Speci men Type: BLOOD SPECIMEN Ordering Facility: [facility] Address: [address] [place] [address] Performed By: #### 2 4321-2 #### [facility] CLIA [id number] [address] Rh Nom (Bld) Positive Normal [facility] Comment on above: Order Comment: Speci men Type: BLOOD SPECIMEN Ordering Facility: [facility] Address: [address] [place] [address] Performed By: #### 2 4321-2 #### [facility] CLIA [id number] [address] CONSULTon 09-25-2023 CONSULT HNO ID: [id number] Author: Chary Portillo MD Service: Pain Management Author Type: Physician Type: Consults Filed: 07/04/2023 5:46 PM Note Text: Name: JESSICA ASH Age: [age] year old PAIN MANAGEMENT: s/p ROSETTA lobectomy, mediastinal LN dissection Pain Description: Patient laying on her right side; states that she hurts. Pain left chest wall near chest tube site. Pain level up to 10. Was given Dilaudid IV dose, which she tolerated per RN Interval HPI: 24H Comfort Meds: Fentanyl 25-50 mcg IV every 1 hour as needed Dilaudid 0.2 mg IV every 4 hours as needed Ativan 1 mg 3 times daily as needed Subjective HPI: 78-year-old female with history of COPD, remote tobacco abuse, ANA (intolerant of CPAP) admitted 07/04 For ROSETTA lobectomy, mediastinal LN dissection for resection left upper lobe non-small cell lung cancer (biopsy favoring adenocarcinoma). RT was asked to assist in postop pain management. Patient has extensive allergy list (29) with multiple intolerances/allergies to pain medications including Tylenol, codeine, Dilaudid, ibuprofen, Toradol, morphine, naproxen and tramadol. Patient did receive Dilaudid dose and tolerated it. Patient unable to tell me what her reaction is to these pain medications. Of note, she is prescribed Ativan 1 mg up to 3 times daily. Patient states she usually takes Ativan 0.5 mg twice daily and 1 mg at bedtime. OARRS Review: 17 prescriptions from 1 prescriber. Benzodiazepine dependent. Most recent prescriptions: 05/10, 06/20 Ativan 1 mg #90 (30-day supply) Current Facility-Administered Medications Medication Dose Route Frequency Provider Last Rate Last Admin LORazepam 1 mg tab(s) (ATIVAN) 1 mg ORAL TID PRN Brisa Russell PA-C escitalopram oxalate 20 mg tab(s) (LEXAPRO) 20 mg ORAL DAILY Brisa Russell PA-C [START ON 07/05/2023] levothyroxine 50 mcg tab(s) (SYNTHROID) 50 mcg ORAL DAILY (6 AM) Brisa Russell PA-C ceFAZolin iv piggyback 1 g in D5W (iso-osmotic) 50 mL (ANCEF) 1 g INTRAVENOUS q 8 H Brisa Russell PA-C [START ON 07/05/2023] enoxaparin 40 mg injection (LOVENOX) 40 mg SUBCUTANEOUS DAILY Brisa Russell PA-C NaCl 0.9% iv flush bag 20 mL INTRAVENOUS PRN Brisa Russell PA-C HYDROmorphone (PF) 0.2 mg injection (DILAUDID) 0.2 mg INTRAVENOUS q 4 H PRN Brisa Russell PA-C fentaNYL 50 mcg/mL 25-50 mcg injection (SUBLIMAZE) 25-50 mcg INTRAVENOUS q 1 H PRN Brisa Russell PA-C olopatadine (PATANOL) 0.1 % ophthalmic solution, INSTILL 1 DROP INTO BOTH EYES TWICE DAILY NEEDED AT 6-8 HOUR INTERVALS., Disp: , Rfl: , 07/03/2023 levothyroxine (SYNTHROID) 50 mcg tablet, Take 50 mcg by mouth. Two tablet at breakfast, pt only takes synthroid not levothyroxine, Disp: , Rfl: , 07/04/2023 at 0445 escitalopram oxalate (LEXAPRO) 20 mg tablet, Take 20 mg by mouth once daily., Disp: , Rfl: , 07/03/2023 lorazepam (ATIVAN) 1 mg ORAL Tab, Take 1 mg by mouth three times daily as needed., Disp: , Rfl: 0, 07/04/2023 at 0445 blood sugar diagnostic (ONETOUCH ULTRA BLUE TEST STRIP [facility]), USE TO TEST BLOOD SUGAR DAILY DX E11.9, Disp: , Rfl: , Unknown EPINEPHrine (EPIPEN) 0.3 mg/0.3 mL auto-injector, as needed (Patient not taking: Reported on 07/01/2023), Disp: 1 Each, Rfl: 1, Unknown Social History Tobacco Use Smoking status: Former Packs/day: 3.00 Years: 30.00 Additional pack years: 0.00 Total pack years: 90.00 Types: Cigarettes Quit date: 1994 Years since quittin.7 Smokeless tobacco: Never Tobacco comments: quit 1994 Substance Use Topics Alcohol use: No FAMILY HISTORY Problem Relation Age of Onset Diabetes Mother living at age 87. congestive failure, COPD Heart Father in his 70's, several MD's other (pancreatic cancer [Other]) Brother at age 58 Colon Cancer Son at age 20 PAST MEDICAL HISTORY Diagnosis Date Adenocarcinoma of left lung (HCC) COPD (chronic obstructive pulmonary disease) (HCC) IFG (impaired fasting glucose) Myalgia and myositis, unspecified 01/23/2007 Obesity, unspecified 01/23/2007 Palpitations 01/23/2007 Shortness of breath 01/23/2007 Unspecified hypothyroidism 01/23/2007 Unspecified sleep apnea 01/23/2007 PAST SURGICAL HISTORY Procedure Laterality Date CHOLECYSTECTOMY Cholecystectomy PAST SURGICAL HISTORY OF repair of fractured jaw TOTAL ABDOMINAL HYSTERECT W/WO RMVL TUBE OVARY Hysterectomy, BRIANA ROS: All of the following reviewed and negative except as noted below: Significant per HPI GENERAL: no fever, chills, sweats, weight loss, fatigue, generalized weakness HEENT: no headache, vision changes, eye discomfort, hearing change, ear discomfort, sinus pain, nasal discharge or congestion, oral lesions, soreness, dental problem NECK: no adenopathy, discomfort, change in ROM CHEST: See HPI HEART: no chest pain, palpitations, syncope ABDOMEN: no nausea, vomiting, constipation, diarrhea, abdominal pain : no dysuria, urgency, frequenc (more content not included)... Normal [facility] ECG COMPLETEon 07-04-2023 ECG COMPLETE Ventricular Rate : 6 6 BPM Atrial Rate : 66 BPM P-R Interval : 154 ms QRS Duration : 96 ms Q-T Interval : 472 ms QTC Calculation(Bazett) : 494 ms Calculated P [place] : 52 degrees Calculated R [place] : 0 degrees Calculated T [place] : 47 degrees NORMAL SINUS RHYTHM WITH SINUS ARRHYTHMIA NONSPECIFIC T WAVE ABNORMALITY PROLONGED QT ABNORMAL ECG WHEN COMPARED WITH ECG OF 27-JUN-2023 09:24, QT HAS LENGTHENED Confirmed by MD BERNARD VINAY ([id number]) on 07/06/2023 2:58:03 PM NAME : JESSICA ASH PID : [id number] : 1945 Gender : Female Race : ORD : [id number] Procedure Date : Jul 04 2023 17:26:19 Edit Date : Jul 06 2023 14:58:08 Diagnosis: NORMAL SINUS RHYTHM WITH SINUS ARRHYTHMIA NONSPECIFIC T WAVE ABNORMALITY PROLONGED QT ABNORMAL ECG WHEN COMPARED WITH ECG OF 27-JUN-2023 09:24, QT HAS LENGTHENED Confirmed by MD BERNARD VINAY ([id number]) on 07/06/2023 2:58:03 PM Test Reason : Post-OP Location : 6 : [place] [address] Overread By : MD BERNARD VINAY Edited By : MD BERNARD VINAY Referred By : SHADE RILEY Acquired by : DUC HOOK Normal [facility] FISH FOR RET (10Q11.21)on FISH FOR RET (10Q11.21) Normal [facility] Comment on above: Order Comment: Speci men Type: BLOOD SPECIMEN Ordering Facility: [facility] Address: [facility] [place] [address] Result Comment: FISH for RET (10q11.21) Laboratory Accession Number: [id number] Case: [id number] Block/Part ID: G6 Sample Type: FFPET Sample Description: LEFT LUNG LOBECTOMY, LEFT UPPER LOBE Received Date: 07/18/2023 Number of nuclei scored: 40 RESULT: Result Reference Range RET Rearrangement 0% (0-14%) INTERPRETATION: A rearrangement involving the RET gene at 10q11.21 was not detected. Clinical and pathological correlation is recommended. Nomenclature: nuc traci(RETx3~6)[50] METHODOLOGY: A dual color, break apart probe specific to the RET gene at 10q11.21 ([employer], [place], [place]) was used in this interphase FISH assay to detect the presence of a RET rearrangement. The slides were scored manually. REFERENCES: Demarcus Becerra, Eitan L, Hasanojaiden A, et al. Response to Cabozantinib in patients with RET fusion-positive lung adenocarcinomas. Cancer Discov 2013;3:630-5 2. Jonna BOWMAN. RET revisited: expanding the oncogenic portfolio. Rita Rev Cancer 2014;14:173-86 3. Adriana Larsen, et al. Molecular methods for somatic mutation testing in lung adenocarcinoma: EGFR and beyond. Trans Lung Cancer Res 2015;4:126-41 4. National Comprehensive Cancer Network (NCCN) Clinical Practice Guidelines in Oncology, Non-Small Cell Lung Cancer, Available at NCCN.org LIMITATIONS: This test will not identify all rearrangements in RET. Rare, cryptic abnormalities may be below the resolution of the assay, or may otherwise be undetected. Specimen size, quality or representativeness can affect the quality of the results. This assay has been validated for tissues fixed with neutral buffered formalin. Decalcification agents and fixation agents containing heavy metals, e.g. B5, or harsh acid or base components (e.g. Bouin's solution) can adversely impact assay performance. DISCLAIMER: This test was developed and its performance characteristics determined by the [facility] [place] ([facility]). It has not been cleared or approved by the FDA. [facility] is regulated under CLIA as qualified to perform high- complexity testing. This test is used for clinical purposes. It should not be regarded as investigational or for research. Interpretation performed at [facility], [address] [place] [address]. CLIA Number: [id number] As reviewed by Nany Larson MD, PhD Performed By: #### 2 4321-2 #### [facility] CLIA [id number] [address] [place] [address] NURSING PROGon 07-04-2023 NURSING PROG HNO ID: [id number] Author: Soni Smart RN Service: Nursing Author Type: Registered Nurse Type: Nursing Progress Note Filed: 07/04/2023 7:54 AM Note Text: Patient unable to take ensure this morning, said couldn't tolerate it. Only done hibiclens last night Normal [facility] OPERATIVE NOon 07-04-2023 OPERATIVE NO HNO ID: [id number] Author: Shade Riley MD Service: Cardiac Surgery Author Type: Physician Type: Operative Report Filed: 07/04/2023 3:21 PM Note Text: [facility] THORACIC SURGERY OPERATIVE/PROCEDURE REPORT LOG ID: [id number] SURGERY/PROCEDURE DATE: 07/04/2023 INCISION/PROCEDURE START TIME: 10:10 AM INCISION CLOSE/PROCEDURE END TIME: 1:40 PM SURGEON(S)/PROCEDURALIS T(S) AND APPLICATION INTEGRATOR(S): Surgeon(s) and Role: * Shade Riley MD - Primary * Divine Whiting MD - Resident - Assisting Physician Teaching Dietitian: Brisa Russell PA-C Railroad Brake Repairer: Akash Juan SA ANESTHESIA: General ASA Class: THOR OP REPORT Performed by: Divine Whiting MD Authorized by: Shade Riley MD PROCEDURE: Lung Resection PREOPERATIVE DIAGNOSIS: Lung cancer, left upper lobe POSTOPERATIVE DIAGNOSIS: Same as preop Lung cancer, left upper lobe Primary Procedure: Laterality: Left Approach: Thoracotomy Removed: Lobectomy Lobe: Upper Secondary Procedures: Mediastinal Lymph Node Sampling, Intercostal Nerve Block and Bronchoscopy LUNG RESECTION PROCEDURE DETAILS: Division Details: Division of pulmonary ligament, Division of arterial branches, Division of venous branches, Division of airway branches and Division of fissure Division of Arterial Branches: Per routine, Division of 4 PA branches with excellent hemostasis Division of Venous Branches: Per routine Division of Airway Branches: Per routine Division of Fissure: Per routine Specimen Removed: Through wound Frozen Sections Performed: No Adequate hemostasis, lymphostasis, and pneumostasis Number of Chest Tubes: 1 Chest Tube 1: Location: Left Position: Pleural Size: 28 Type: Straight Micheal Drain: No Closure: Routine Thoracotomy Unusually Difficult Procedure: No Lung Resection Procedure Findings: 78 y/o F with 2.3cm ROSETTA nodule with biopsy sample concerning for non small cell. Second 1.6cm nodule identified in ROSETTA on preop CT chest, not biopsied. T1 or T3 tumor. Negative EBUS lymph node sampling with no lymphadenopathy on preop PET/CT. Mediastinal and hilar lymph node dissection. Bronchoscopy with normal airway findings. POST-PROCEDURE DETAILS Patient Tolerance of Procedure: tolerated well, no immediate complications Catheters/[place]/Wires Counts: Final Counts Correct Estimated Blood Loss: 50 mL Specimens: See Specimens below from [employer] Log Extubated in OR: Yes Destination: ICU SURGEON/APPLICATION INTEGRATOR PARTICIPATION: The primary surgeon/proceduralist performed the procedure with assistance. Farm Helper: Opened: Surgeon present Closed: Surgeon present Alteration/removal of tissue: Surgeon present Dissected Tissue: Surgeon present Second Assist: Opened: Surgeon present Closed: Surgeon present Alteration/removal of tissue: Surgeon present Dissected Tissue: Surgeon present Specimens: ID Type Source Tests Collected by Time Destination A : Level 9 Pulmonary Ligament Lymph Node #1, Left Lung Tissue LYMPH NODE SURGICAL PATHOLOGY Shade Riley MD 07/04/2023 11:03 AM B : Level 9 Pulmonary Ligament Lymph Node #2, Left Lung Tissue LYMPH NODE SURGICAL PATHOLOGY Shade Riley MD 07/04/2023 11:05 AM C : Level #11 Interlobar Lymph Node, Left Lung Tissue LYMPH NODE SURGICAL PATHOLOGY Shade Riley MD 07/04/2023 11:34 AM D : Level #10 Hilar Lymph Node, Left Lung Tissue LYMPH NODE SURGICAL PATHOLOGY Shade Riley MD 07/04/2023 11:38 AM E : Level 5 Subaortic Lymph Node, Left Lung Tissue LYMPH NODE SURGICAL PATHOLOGY Shade Riley MD 07/04/2023 12:35 PM F : Level 12 Lobar Lymph Node, Left Lung Tissue LYMPH NODE SURGICAL PATHOLOGY Shade Riley MD 07/04/2023 12:37 PM G : Left Upper Lobe, Left Lung Tissue LUNG LOBECTOMY LEFT SURGICAL PATHOLOGY Shade Riley MD 07/04/2023 12:40 PM H : Level 7, Subcarinal Lymph Node, Left Lung Tissue LYMPH NODE SURGICAL PATHOLOGY Shade Riley MD 07/04/2023 12:50 PM * No order type specified * COMPLETED BY: Divine Whiting MD PATIENT NAME: Jessica Ash DATE: July 04, 2023 TIME: 2:35 PM AGE: [age] year old I was present for the critical and cage portions of the surgery and I was immediately available to provide assistance. Correction: 32 Fr chest tube Normal [facility] PD-L1 22C3on 07-04-2023 PD-L1 BY IMMUNOHISTOCHEMISTY Normal [facility] Comment on above: Order Comment: Speci men Type: BLOOD SPECIMEN Ordering Facility: [facility] Address: [address] [place] [id number] Result Comment: Immu nohistochemistry for PD-L1 expression Tumor Cells Positive: 90% Block Analyzed: G6 PD-L1 Clone: 22C3 Comment: N/A Immunohistochemistry was performed on formalin fixed paraffin-embedded tissue using the mouse monoclonal antibody 22C3 ([employer]; [place], [place]) followed by ultrasensitive bright field detection (Optiview with amplification [[employer], [place]]). Criteria for interpretation require that tumor cells show membrane staining of any intensity for PD-L1. Laboratory Developed Test (LDT) Disclaimer: Performance characteristics of immunohistochemical, immunofluorescent and chromogenic in-situ hybridization tests have been determined by the performing laboratory within [facility]???s [facility] ([facility], [facility], [facility], [facility], [facility], [facility], or [facility]) in a manner consistent with CLIA requirements. One or more of these tests have not been cleared or approved by the FDA. [facility] is regulated under CLIA as qualified to perform high-complexity testing. These tests are used for clinical purposes. They should not be regarded as investigational or for research. Positive and negative controls stain appropriately. Electronically signed out by: Sam Soriano MD Performed By: #### 2 4321-2 #### [facility] CLIA [id number] [address] [place] [address] [facility] ROS1 GENE REARRANGEMENTon FISH FOR ROS1 (6Q22) Normal [facility] Comment on above: Order Comment: Speci men Type: BLOOD SPECIMEN Ordering Facility: [facility] Address: [address] [place], [place] [id number] Result Comment: FISH for ROS1(6q22) Laboratory Accession Number: [id number] Case: [id number] Block/Part ID: G6 Sample Type: FFPET Sample Description: LEFT LUNG LOBECTOMY, LEFT UPPER LOBE Received Date: 07/18/2023 Number of nuclei scored: 40 RESULT: Result Reference Range ROS1 Rearrangement 2% (0-14%) INTERPRETATION: A rearrangement involving the ROS1 gene at 6q22.1 was not detected. Clinical and pathological correlation is recommended. Nomenclature: nuc traci(ROS1x1)[1150]/(ROS1x3~4)[50] METHODOLOGY: A dual color, break apart probe specific to the ROS1 gene at 6q22.1 ([employer], [place], [place]) was used in this interphase FISH assay to detect the presence of a ROS1 rearrangement. The slides were scored manually. REFERENCES: 1) Darrel KD, Saadia RC. Molecular Pathways: ROS1 Fusion Proteins in Cancer. Clin Cancer Res 2013;15:1-6. Jus Ramirez Tung-Jue B, et al. Crizotinib in Ros1-Rearranged Non-Small Cell Lung Cancer. New Encl J Med 2014;21:1963-71 2) Jus Ramirez Yung-Jue B et al. Crizotinib in ROS1-Rearranged Non-Small Lung Cancer. New Engl J Med 2014;21:1963-71 3) Adriana Larsen, et al. Molecular methods for somatic mutation testing in lung adenocarcinoma: EGFR and beyond. Transl Lung Cacer Res 2015;4:126-41 4) Stephanie Drummond, Inga Becerra, Moncho Larsen, et al. ROS1 rearrangements in lung adenocarcinoma: prognostic impact, therapeutic options and genetic variability. Oncotarget 2015; e-pub ahead of print, January 01, 2015. 5) National Comprehensive Cancer Network (NCCN) Clinical Practice Guidelines in Oncology, Non-Small Cell Lung Cancer. Available at NCCN.org LIMITATIONS: This test will not identify all rearrangements in ROS1. Rare, cryptic abnormalities may be below the resolution of the assay, or may otherwise be undetected. Specimen size, quality or representativeness can affect the quality of the results. This assay has been validated for tissues fixed with neutral buffered formalin. Decalcification agents and fixation agents containing heavy metals, e.g. B5, or harsh acid or base components (e.g. Bouin's solution) can adversely impact assay performance. DISCLAIMER: This test was developed and its performance characteristics determined by the [facility] ([facility]). It has not been cleared or approved by the FDA. [facility] is regulated under CLIA as qualified to perform high- complexity testing. This test is used for clinical purposes. It should not be regarded as investigational or for research. Interpretation performed at [facility], [address] [place] [address]. CLIA Number: [id number] As reviewed by Nany Larson MD, PhD Performed By: #### 2 4321-2 #### [facility] CLIA [id number] [address] [place] [address] [place] SURGICAL PATHOLOGYon 023 BLOCK FOR ADDITIONAL BIOMARKERS/MOLECULAR STUDIES G6 Normal [facility] Comment on above: Order Comment: Speci men Type: TISSUE SPECIMEN Ordering Facility: [facility] Address: [address] [place] [address] Performed By: #### S #### [facility] CLIA [id number] [address] [place] #### [id number], [id number] #### [facility] CLIA [id number] [address] [place] [address] [place] #### RET, ROS1, TOPTO #### [facility] CLIA [id number] [address] [place] [address] [place] CASE REPORT Normal [facility] Comment on above: Order Comment: Speci men Type: TISSUE SPECIMEN Ordering Facility: [facility] Address: [address] [place] [address] Result Comment: Surg ical Pathology Report Case: [id number] Authorizing Provider: Shade Riley MD Collected: 07/04/2023 11:03 AM Ordering Location: [facility] Received: 07/05/2023 06:41 AM Pathologist: Evan Olvera DO Specimens: A) - LYMPH NODE, Level 9 Pulmonary Ligament Lymph Node #1, Left Lung B) - LYMPH NODE, Level 9 Pulmonary Ligament Lymph Node #2, Left Lung C) - LYMPH NODE, Level #11 Interlobar Lymph Node, Left Lung D) - LYMPH NODE, Level #10 Hilar Lymph Node, Left Lung E) - LYMPH NODE, Level 5 Subaortic Lymph Node, Left Lung F) - LYMPH NODE, Level 12 Lobar Lymph Node, Left Lung G) - LUNG LOBECTOMY LEFT, Left Upper Lobe, Left Lung H) - LYMPH NODE, Level 7, Subcarinal Lymph Node, Left Lung Performed By: #### S #### [facility] CLIA [id number] [address] [place] [address] [place] #### [id number], [id number] #### [facility] CLIA [id number] [address] [place] [address] [place] #### RET, ROS1, TOPTO #### [facility] CLIA [id number] [facility] [place] [address] [place] CLINICAL HISTORY Normal [facility] Comment on above: Order Comment: Speci men Type: TISSUE SPECIMEN Ordering Facility: [facility] Address: [address] [place] [address] Result Comment: Pre- op diagnosis: Carcinoma, lung, left (HCC) [C34.92] Performed By: #### S #### [facility] CLIA [id number] [address] [place] [address] [place] #### [id number], [id number] #### [facility] CLIA [id number] [address] [place] [address] [place] #### RET, ROS1, TOPTO #### [facility] CLIA [id number] [address] [place] [address] [place] DIAGNOSIS COMMENT Normal [facility] Comment on above: Order Comment: Speci men Type: TISSUE SPECIMEN Ordering Facility: [facility] Address: [address] [place] [address] Result Comment: G. E lastin stains performed on blocks G4 and G6 show involvement of the visceral pleura by tumor. Dr. Clay Thorpe has reviewed select slides of part G and agree with the above diagnosis. Targeted oncology panel (TOP), ALK, PDL1, RET and ROS1 testing will be performed. Performed By: #### S #### [facility] CLIA [id number] [address] [place] #### [id number], [id number] #### [facility] CLIA [id number] [address] [place] [address] [place] #### RET, ROS1, TOPTO #### [facility] CLIA [id number] [address] [place] [address] [place] FINAL DIAGNOSIS Normal [facility] Comment on above: Order Comment: Speci men Type: TISSUE SPECIMEN Ordering Facility: [facility] Address: [address] [place] [address] Result Comment: A. L ymph node, level 9, excision: - 1 lymph node, negative for carcinoma (0/1). B. Lymph node, level 9 #2, excision: - 1 lymph node, negative for carcinoma (0/1). C. Lymph node, level 11, excision: - 1 lymph node, negative for carcinoma (0/1). D. Lymph node, level 10, excision: - 1 lymph node, negative for carcinoma (0/1). E. Lymph node, level 5, excision: - 1 lymph node, negative for carcinoma (0/1). F. Lymph node, level 12, excision: - 1 lymph node, negative for carcinoma (0/1). G. Lung, left upper lobe, lobectomy: - Adenocarcinoma, acinar (65%), papillary (25%), lepidic (10%) subtypes. - Margins are negative for carcinoma. - Visceral pleura is involved by tumor. - 3 peribronchial lymph node, negative for carcinoma (0/3). - Please see comment and synoptic report. H. Lymph node, level 7, excision: - 1 lymph node, negative for carcinoma (0/1). Performed By: #### S #### [facility] CLIA [id number] [address] [place] [facility] #### [id number], [id number] #### [facility] CLIA [id number] [address] [place] [address] [place] #### RET, ROS1, TOPTO #### [facility] CLIA [id number] [address] [place] [address] [place] FINAL PERFORMING LAB Normal [facility] Comment on above: Order Comment: Speci men Type: TISSUE SPECIMEN Ordering Facility: [facility] Address: [address] [place] [address] Result Comment: Diag nostic interpretation performed at [facility], [address] [place] [address] CLIA# [id number] Chip Mixing Machine Operator: Omar Enrique M.D. Performed By: #### S #### [facility] CLIA [id number] [address] [place] [address] [place] #### [id number], [id number] #### [facility] CLIA [id number] [address] [place] [address] [place] #### RET, ROS1, TOPTO #### [facility] CLIA [id number] [address] [place] [address] [place] GROSS DESCRIPTION A. LYMPH NODE Normal [facility] Comment on above: Order Comment: Speci men Type: TISSUE SPECIMEN Ordering Facility: [facility] Address: [address] [place] [address] Result Comment: A. R eceived in formalin labeled level 9 pulmonary ligament lymph node #1 is a rick-black nodule measuring 0.8 x 0.5 x 0.3 cm. The specimen is totally submitted in formalin in 1 cassette. B. LYMPH NODE B. Received in formalin labeled level 9 pulmonary ligament lymph node #2 is a ocasio nodule resembling a lymph node measuring 1.5 x 1.1 x 0.5 cm. The specimen is serially sectioned and totally submitted in formalin in 1 cassette. C. LYMPH NODE C. Received in formalin labeled level #11 interlobar lymph node is a rick-black nodule measuring 0.7 x 0.4 x 0.3 cm. The specimen is totally submitted in formalin in 1 cassette. D. LYMPH NODE D. Received in formalin labeled level #10 hilar lymph node is a nodule resembling lymph node measuring 1.0 x 0.8 x 0.4 cm. The specimen is totally submitted in formalin in 1 cassette. E. LYMPH NODE E. Received in formalin labeled level 5 subaortic lymph node is a yellow-black soft segment of tissue measuring 1.6 x 1.1 x 0.5 cm. The specimen is serially sectioned and totally submitted in formalin in 1 cassette. F. LYMPH NODE F. Received in formalin labeled level 12 lobar lymph node is a black soft segment of tissue measuring 1.0 x 0.6 x 0.4 cm. The specimen is totally submitted in formalin in 1 cassette. G. LUNG LOBECTOMY LEFT G. Received in formalin labeled left upper lobe is a lobe of lung measuring 15 x 12 x 3.5 cm and weighing 177 g. The pleural surface is smooth. 2 nodules are identified. The first is a solid white-ocasio nodule measuring 1.9 x 1.7 x 1.3 cm. The nodule abuts the pleura which is puckered. The nodule is located 3.4 cm from the closest parenchymal margin and 5.0 cm from the bronchial and vascular margins. The second nodule is a white-ocasio nodule measuring 1.6 x 1.2 x 0.8 cm. It extends within 3 cm of the parenchymal margin 4 cm of the bronchial and vascular margin. The nodule does abut the pleura. The overlying pleura is not puckered. It is 1.3 cm from the first nodule. The 2 nodules are not contiguous. The remainder of the lung shows emphysema. Dissection reveals 4 possible lymph nodes. Tissue is submitted as follows: G1 bronchial margin G2 vascular margin G3 parenchymal margin (inked orange) G4-G8 first nodule totally submitted G9 section between first and second nodule G10-G 13-second nodule totally submitted G14 solar sales representative and assessor section of uninvolved parenchyma G15 3 lymph nodes G16 1 lymph node bisected and totally submitted H. LYMPH NODE H. Received in formalin labeled level 7 subcarinal lymph node is a rick nodule measuring 1.3 x 0.8 x 0.6 cm. The specimen is bisected and totally submitted in formalin in 1 cassette. Gross examination performed at [facility], [address] [place] [address] KVB July 05, 2023 11:12 AM Performed By: #### S #### [facility] CLIA [id number] [address] [place] [address] [place] #### [id number], [id number] #### [facility] CLIA [id number] [facility] [place] [address] [place] #### RET, ROS1, TOPTO #### [facility] CLIA [id number] [address] [place] [address] [place] SYNOPTIC REPORT LUNG Normal [facility] Comment on above: Order Comment: Speci men Type: TISSUE SPECIMEN Ordering Facility: [facility] Address: [address] [place] [address] Result Comment: LUNG : RESECTION - All Specimens 8th Edition - Protocol posted: 06/30/2022 SPECIMEN Procedure: Lobectomy Specimen Laterality: Left TUMOR Tumor Focality: Single focus Tumor Site: Upper lobe of lung Tumor Size: Total Tumor Size (size of entire tumor): Greatest Dimension (Centimeters): 1.9 cm Size of Invasive Component: Greatest Dimension (Centimeters): 1.5 cm Histologic Type: Invasive acinar adenocarcinoma Histologic Patterns Present: Acinar: 65 Histologic Patterns Present: Papillary: 25 Histologic Patterns Present: Lepidic: 10 Histologic Grade: G2, moderately differentiated Spread Through Air Spaces (DARRICK): Not identified Visceral Pleura Invasion: Present Direct Invasion of Adjacent Structures: Not applicable (no adjacent structures present) Treatment Effect: No known presurgical therapy Lymphovascular Invasion: Not identified MARGINS Margin Status for Invasive Carcinoma: All margins negative for invasive carcinoma Closest Margin(s) to Invasive Carcinoma: Parenchymal Distance from Invasive Carcinoma to Closest Margin: 3.4 cm Margin Status for Non-Invasive Tumor: All margins negative for non-invasive tumor REGIONAL LYMPH NODES Lymph Node(s) from Prior Procedures: Not included Regional Lymph Node Status: : All regional lymph nodes negative for tumor Number of Lymph Nodes Examined: 10 Sumeet Site(s) Examined: 7: Subcarinal Sumeet Site(s) Examined: 5: Subaortic / aortopulmonary (AP) / AP window Sumeet Site(s) Examined: 9L: Pulmonary ligament Sumeet Site(s) Examined: 10L: Hilar Sumeet Site(s) Examined: 11L: Interlobar Sumeet Site(s) Examined: 12L: Lobar PATHOLOGIC STAGE CLASSIFICATION (pTNM, AJCC 8th Edition) Reporting of pT, pN, and (when applicable) pM categories is based on information available to the pathologist at the time the report is issued. As per the AJCC (Chapter 1, 8th Ed.) it is the managing physician???s responsibility to establish the final pathologic stage based upon all pertinent information, including but potentially not limited to this pathology report. pT Category: pT2a pN Category: pN0 Performed By: #### S #### [facility] CLIA [id number] [address] [place] [address] [place] #### [id number], [id number] #### [facility] CLIA [id number] [address] [place] [id number] [place] #### RET, ROS1, TOPTO #### [facility] [id number] [address] [place] [address] [place] TARGETED ONCOLOGY PANEL NEXT GENERATION SEQUENCING OTHERon 07-04-2023 TARGETED ONCOLOGY PANEL NEXT GENERATION SEQUENCING OTHER Normal [facility] Comment on above: Order Comment: Speci men Type: BLOOD SPECIMEN Ordering Facility: [facility] Address: [address] [place] [id number] Result Comment: [facility] Targeted Oncology Panel Laboratory Accession Number: [id number] Case #: [id number] Block #: G6 Sample Type: FFPET % Tumor: 50 CASE SUMMARY: KRAS G12C is detected. This test does not distinguish between variants that are germline versus somatic. These results should be interpreted in the context of the clinical and pathological findings for a final evaluation. *Unless otherwise stated, all assay hotspot regions have been tested (see EVALUATED GENES below) and only positive genes are reported. RESULTS: Single Nucleotide Variants/Indels: KRASp.Kzj35Kom [id number]:c.34G>T 28.4% VAF, Depth 6746x, Ex2 Copy Number Gains: None Detected RNA Fusions and Aberrant Transcripts: None Detected VARIANT INTERPRETATIONS: KRAS p.Bcn54Jxz NM_033360.2:c.34G>T The clinically significant G12C variant in KRAS was detected in this specimen. KRAS aubrie-oncogene encodes for a small GTPase family protein, K-Luciano, which plays cage role cell proliferation regulation. KRAS hot spot mutations, especially in exon 2, and amplifications are common in colorectal, non-small cell lung and pancreatic cancers (PMID: [id number], [id number], [id number]). Variants of uncertain significance detected: None Detected Regions with coverage <100x: PIK3CA:NM_006218.2:Exon2 chr3:[id number] Range: 65-68; FGFR3:NM_000142.4:Exon16 chr4:[id number] Range: 29-34; METHODOLOGY: Extracted nucleic acid from the specimen, both DNA and RNA, were subjected to separate targeted amplification reactions, using AmpliSeq custom primers designed by [employer] ([employer], [place], [place]). Hotspots and selected fusions in gene regions listed below were sequenced using Illumina ([place], [place]) 2x150 paired-end cycle chemistry. A customized bioinformatics analytical platform was used for read alignment (Genome Build GRCh37/hg19), variant identification and annotation. Single nucleotide variants (SNVs), insertion, deletion (indels) and copy number gain variants are detected by DNA sequencing. Select fusions and aberrant transcripts (EGFR vIII and MET exon 14 skipping transcripts) are detected by RNA sequencing. Variants are classified according to established guidelines (1). Reported results include variants of strong or potential clinical significance and variants of unclear clinical significance. Benign population polymorphisms are not included in the report. Based on validation, the DNA testing delivered an average of >500x coverage and >99% of targeted regions showed over 100x coverage. A minimum coverage depth of 100 reads is required across the entire region of interest; a list of low coverage areas is included in the report as applicable. The test demonstrated 100% sensitivity and 100% specificity in identifying SNVs, indels and copy number gains. The lower limit of detection of this assay is approximately 5% variant allele fraction (VAF) for SNV/indels and 6 copies or greater for copy number gains. Variants below these thresholds may be reported at the discretion of the molecular pathology professional staff if the technical quality of the sequencing is sufficient at that location and the call is unequivocal. Based on validation, the RNA fusion testing averaged >150,000 total reads. The test demonstrated 93% sensitivity and 100% specificity in gene fusion identification compared to NGS sequencing, and 69% sensitivity and 100% specificity compared to FISH of fusion drivers (unknown fusion partner). Overall sensitivity is 78% and accuracy is 99%. The lower limit of detection is approximately 1% of total sequencing reads. LIMITATIONS: Sequence changes outside the analyzed alterations hotspots, including intronic and noncoding regions, will not be identified by this test. Insertions and deletions larger than 20 and 40 bp, respectively, may not be identified by this test. Negative results from specimens for which the percentage of tumor cells is 10% or less should be interpreted with caution. Although variant allele fraction is provided as a percentage, this is not a quantitative test. RNA fusions involving alternative partners or breakpoints outside of the targeted regions cannot be detected by this test. This test does not distinguish between somatic and inherited variants. Tumor heterogeneity, tumor burden, specimen degradation or other limitations of the technology may affect the sensitivity and limit of detection, either broadly across the regions of interest or for specific regions and may lead to false negative results. For tumor tissue, fixation in neutral buffered formalin or alcohol is preferred. Decalcification agents and fixation agents containing heavy metals (e.g., B5) or harsh acid or base components (e.g., Bouin's solution) can inhibit PCR reactions. Peripheral blood and bone marrow aspirate specimens should be collected in (more content not included)... Performed By: #### 2 [id number] #### [facility] CLIA [id number] [address] XR CHEST 1V FRONTALon 2022 XR CHEST 1V FRONTAL * * *Final Report* * * DATE OF EXAM: Jul 04 2023 3:56PM [id number] [id number] - XR CHEST 1V FRONTAL / PROCEDURE REASON: Post-operative / post-procedure assessment, asymptomatic * * * * Physician Interpretation * * * * EXAMINATION: CHEST RADIOGRAPH (SINGLE VIEW AP OR PA) CLINICAL HISTORY: Post-operative / post-procedure assessment, asymptomatic, Post-operative/post-pro cedure assessment MQ: XC1_5 Comparison: 02/13/2022 RESULT: Lines, tubes, and devices: Left chest tube tip at the apex.. Lungs and pleura: No pneumothorax identified. Vascular interstitial prominence. Question small right pleural effusion. Cardiomediastinal silhouette: Grossly stable Other: Small amount of left chest wall gas.. Lateral left 5th rib fracture IMPRESSION: Vascular interstitial prominence Question small right pleural effusion Left chest tube. Professional Shopper[facility] Transcribe Date/Time: Jul 04 2023 4:29P Dictated by : JACQUELINE LIRA MD This examination was interpreted and the report reviewed and electronically signed by: JACQUELINE LIRA MD on Jul 04 2023 4:32PM EST [id number] Normal [facility] ANES POSTPROC EVALon 023 ANES POSTPROC EVAL HNO ID: [id number] Author: Surinder Mendoza MD Service: Anesthesiology Author Type: Anesthesiologist Type: Anesthesia Postprocedure Evaluation Filed: 07/01/2023 1:54 PM Note Text: POST ANESTHESIA EVALUATION NOTE : 1945 Procedure Summary Date: 07/01/23 Room / Location: [facility] Anesthesia Start: 1211 Anesthesia Stop: 1245 Procedure: EGD - THERAPEUTIC, EUS, OR TUBE INTERVENTIONS Diagnosis: RUQ pain Gastroesophageal reflux disease, unspecified whether esophagitis present Pharyngoesophageal dysphagia Scheduled Providers: Marian Davies RN Responsible Provider: Surinder Mendoza MD Anesthesia Type: general ASA Status: 3 Anesthesia Type: general Airway Type: ETT Last Vitals Vitals Value Taken Time BP 151/75 07/01/23 1338 Temp 36.3 ?C (97.3 ?F) 07/01/23 1241 Pulse 55 07/01/23 1331 Resp 16 07/01/23 1331 SpO2 98 % 07/01/23 1340 Vitals shown include unvalidated device data. Post Anesthesia Patient Status Patient Evaluation: PACU. PACU/ICU Patient Condition: stable. Anticipated Disposition: phase 2 then home. Neurological Status: aware and responsive. Pulmonary Status: breathing comfortably on room air Airway Control: returned to baseline unsupported. Cardiovascular Status: stable. Pain Management: clinically adequate Postoperative Hydration: acceptable. Intraoperative Events: no significant anesthesia events Recommendation: continue current plan of care. Anesthesia Observations No Documentation SIGNATURE: Surinder Mendoza MD PATIENT NAME: Jessica Ash DATE: July 01, 2023 TIME: 1:54 PM CSN: [id number] [facility] ANES PRE-OPon 07-01-2023 ANES PRE-OP HNO ID: [id number] Author: Surinder Mendoza MD Service: Anesthesiology Author Type: Anesthesiologist Type: Anesthesia Preprocedure Evaluation Filed: 07/01/2023 11:08 AM Note Text: ANESTHESIOLOGY DAY OF SURGERY NOTE : 1945 Procedure Information Date/Time: 07/01/23 1130 Scheduled providers: Marian Davies RN Procedure: EGD - THERAPEUTIC, EUS, OR TUBE INTERVENTIONS Location: [facility] Estimated body mass index is 31.62 kg/m? as calculated from the following: Height as of this encounter: 165.1 cm (5' 5). Weight as of this encounter: 86.2 kg (190 lb). Most recent hematocrit and potassium results: Hematocrit 41.1 06/28/2023 Potassium 4.1 06/28/2023 Relevant Problems ANESTHESIA (+) Unspecified sleep apnea CARDIO (+) Mitral valve prolapse ENDO (+) Unspecified hypothyroidism PULMONARY (+) Chronic obstructive lung disease (HCC) (+) Shortness of breath (+) Unspecified sleep apnea #See anesthesia consult telephone note I - PHYSICAL EVALUATION AIRWAY Patient intubated: No. Tracheostomy tube not present Mallampati: II. TM distance: >3 FB. Neck ROM: full ROM without neurological symptoms. Mouth opening: adequate. Short neck: yes. Thick neck: no DENTAL Dental findings: teeth intact. II - ANESTHESIA PLAN ASA Score: 3 Anesthetic Plan: general Airway type: ETT NPO Status: adequate Beta Aysha Monitoring Plan Monitoring plan: standard ASA. Post Procedure Analgesic Plan Postoperative analgesic plan: multimodal analgesia and per surgical service. Informed Consent Anesthetic risks, benefits, alternatives, personnel and consent discussed: yes. Patient / Responsible Libertarian agrees to proceed: yes Patient / Surrogate agrees to blood products: blood products not planned Vitals Value Taken Time BP 132/64 07/01/23 1055 Pulse 47 07/01/23 1055 Resp 20 07/01/23 1055 Temp 36.5 ?C (97.7 ?F) 07/01/23 1055 SpO2 98 % 07/01/23 1055 Outpatient Medications as of 07/01/2023 Medication Sig - olopatadine (PATANOL) 0.1 % ophthalmic solution INSTILL 1 DROP INTO BOTH EYES TWICE DAILY NEEDED AT 6-8 HOUR INTERVALS. - levothyroxine (SYNTHROID) 50 mcg tablet Take 50 mcg by mouth. Two tablet at breakfast, pt only takes synthroid not levothyroxine - escitalopram oxalate (LEXAPRO) 20 mg tablet Take 20 mg by mouth once daily. - lorazepam (ATIVAN) 1 mg ORAL Tab Take 1 mg by mouth three times daily as needed. - blood sugar diagnostic (COINPLUSTOUCH ULTRA BLUE TEST STRIP [facility]) USE TO TEST BLOOD SUGAR DAILY DX E11.9 - EPINEPHrine (EPIPEN) 0.3 mg/0.3 mL auto-injector as needed (Patient not taking: Reported on 07/01/2023) No current facility-administered medications on file as of 07/01/2023. I have interviewed and examined the patient. I have reviewed the medical record and/or the pre-anesthesia evaluation, pertinent labs, and test results. This contains updated information obtained within 48 hours of Surgery/Procedure. SIGNATURE: Surinder Mendoza MD PATIENT NAME: Jessica Ash DATE: July 01, 2023 TIME: 11:07 AM CSN: [id number] Normal [facility] CNOVon 07-01-2023 CNOV Office Visit (AGVASA ) JESSICA ASH ([id number]) 1945 F Date Time Provider Department 07/01/23 9:00 AM XOCHILT KLEIN During your visit today, we recorded the following information about you: Pulse Respiration Blood pressure Weight 54/minute 18/minute 118/70 86.4 kg Height 1.651 m Xochilt Klein APRN.DRIVER RECRUITER 07/01/2023 9:10 AM Signed Pre-Admission Patient Instruction You are scheduled for surgery (inpatient) located on the 2nd Floor on: 07/04/23 (your surgery date is subject to change should there be emergencies prior to your scheduled OR time). Come in the Front Doors / Main Entrance of the hospital. No need to stop at front entrance registration. Please check in to the Surgery [facility] (2nd Floor) at: 6 AM Nothing by mouth after midnight: Do not eat or drink anything, including water and coffee, after 12 AM on the morning of your surgery. This is important because if you do, your surgery may have to be cancelled. Eat a light supper the evening before surgery or follow specific doctor's instructions. Oral hygiene and a shower or bath is required the evening before or the morning of surgery. Use the prescribed Hibiclens body wash supplied to you along with the instruction. Do not chew gum/mints, or use oral spray the morning of surgery. Notify your doctor if you develop a cold, sore throat, fever or other changes in your physical condition. No alcohol 24 hours before or after surgery and refrain from smoking the morning of surgery and immediately following surgery. Leave valuables such as rings, watches and money at home. Remove all make-up and nail dominican before admission. We need to check your circulation. Remove jewelry from all piercings, tongue included, as no metal can go into surgery. Wear loose, comfortable clothing that will accommodate bandages. You will be asked to remove glasses or contacts, and/or your denture prior to surgery. Please bring a case. Your belongings will be kept in an assigned locker until we know your new room after procedure. Your length of stay will be determined by your surgeon/surgery team, the anesthesiologist as well as your post of progress. On the morning of surgery, your point of contact will be instructed on communication regarding surgery updates. Please bring a list of any medication you are taking including dose and the condition for which you are being treated. Medications to stop in preparing surgery: none Infection control and prevention: For body- Hibiclens body wash the night before and morning of surgery. If you are positive of MRSA, you would need shower daily with the Hibiclens body solution for 5 days total (you can get additional amount from any local drug store). Nutritional support/Ensure Drinks Instruction (Please continue eating your usual heart healthy diet): 2 protein shakes daily for 5 days before surgery 2 presurgical clear drinks the night before surgery 1 presurgical clear drink 2 hrs before surgery Medications to take with small amount of fluid in the morning of surgery: None PLEASE COMPLETE THE SHOWER, MOUTH WASH, NASAL OINTMENT, FINISH YOUR DRINK AND PRE-OP MEDICATIONS NO LATER THAN 5:30 AM, THANKS. Please call office at [phone] or Carlypso message me if you have additional questions, Thanks. Xochilt Klein APRN.DRIVER RECRUITER 07/01/23 Xochilt Klein APRN.TONIA 07/01/2023 2:23 PM Signed HISTORY and PHYSICAL CARDIOTHORACIC SURGERY HPI: (per Dr. Riley) This is a 78 year old woman referred for evaluation of a left upper lobe nonsmall cell lung cancer and for consideration for resection. She complains of long standing exertional dyspnea. A left upper lobe lesion was identified on CXR. Subsequent CT scans of the chest performed in October and November showing stable 2.3 cm area of consolidation within the left upper lobe with stable central nodular density; no adenopathy; no effusion. PET scanning 04/15 was positive at this site for hypermetabolism with SUV 12.9. A new second hypermetabolic nodule is identified in the left upper lobe laterally and anteriorly, pleural based, measuring 1.6 x 1.1 cm with SUV 4.1. No hypermetabolic mediastinal lymph nodes. There is hypermetabolsim associated with the distal esophagus with SUV 6.8 (felt to be inflammatory).. CT guided biopsy is positive for nonsmall cell cancer, favoring adenocarcinoma. Bronchoscopic EBUS evaluation of the mediastinum is negative at stations 11R, 4R, 4L, 7, 11L. By report, her recent PFTs are good with FEV1 of 70% and normal DLCO; I do not have documentation at hand. She denies cough, sputum, hemoptysis, weight loss, new pain. She endorses some episodes of chest pressure with exertion. She denies any h/o CAD, CHF, previous heart cath, or stress test. She is a remote smoker. She has COPD. She has ANA. She does no (more content not included)... Normal [facility] OPERATIVE NOon 07-01-2023 OPERATIVE NO HNO ID: [id number] Author: Dae Bradshaw MD Service: Gastroenterology Author Type: Physician Type: Operative Report Filed: 07/01/2023 12:45 PM Note Text: OPERATIVE/PROCEDURE REPORT LOG ID: [id number] Surgery/Procedure Date: 07/01/2023 Incision/Procedure Start Time: 12:20 PM Incision Close/Procedure End Time: 12:35 PM Surgeon(s)/Proceduralis t(s) and Teaching Dietitian(s): Emmanuel Bradshaw MD No Additional Staff Procedure(s): Esophagogastroduodenosc opy (EGD) with biopsy and bougie dilation Anesthesia: Monitored anesthesia care Brief History: abnormal PET scan in esophagus, hx of GERD, mid chest dysphagia Procedure Details: The patient was placed in the left lateral decubitus position. A bite block was placed and medications administered as above. The Olympus gastroscope was used to intubate the oropharynx and esophagus with ease. We proceeded down to the second part of the duodenum. The duodenal mucosa and bulb appeared normal. We then withdrew into the stomach and visualized some mild patchy gastritis in the antrum and nl body. Biopsies were taken to rule out H. Pylori. Retroflexion was performed and this showed a normal fundus and cardia. The squamocolumnar junction, GE junction at 37 cm revealed a small island that was near 1 cm, so bx done. There was no stricture but empiric bougie dilation was done w 48, 50 Fr nelson/bougie dilators w min to mild, mild to mod resistance. Trace heme attributed to bx done. I reinserted the scope and no trauma seen.The scope was then withdrawn and the patient tolerated the procedure well. Pre-Op/Pre-Procedure Diagnosis: as above Post-Op/Post-Procedure Diagnosis: Antral gastritis 2. No esoph stricture s/p empiric bougie dilation Specimens: See above EBL: None Complications: None Recommendations:1. Pantoprazole 20 mg daily 2. F/up path 3. Ok to proceed w surgery on Tuesday I/primary surgeon/proceduralist performed the entire procedure. Dae Bradshaw MD SIGNATURE: Dae Bradshaw MD PATIENT NAME: Jessica Ash DATE: July 01, 2023 TIME: 12:39 PM PAGER/CONTACT #: [email or web address] [facility] SURGICAL PATHOLOGYon 023 CASE REPORT Normal [facility] Comment on above: Order Comment: Speci men Type: TISSUE SPECIMEN Ordering Facility: External Submitter Address: , , Result Comment: [facility]urg [facility] Pathology Report Case: [id number] Authorizing Provider: Dae Bradshaw MD Collected: 07/01/2023 12:23 PM Ordering Location: LAB EKG [facility] Received: 07/04/2023 10:56 AM Pathologist: Omar Enrique MD Specimens: A) - STOMACH BIOPSY B) - ESOPHAGUS BIOPSY, distal Performed By: #### S #### [facility] CLIA [id number] [address] [place] [address] [place] CLINICAL HISTORY RUQ pain. Gastroesophageal reflux disease, unspecified whether esophagitis present. Pharyngoesophageal dysphagia. Normal [facility] Comment on above: Order Comment: Tyesha mason Type: TISSUE SPECIMEN Ordering Facility: External Submitter Address: , , Performed By: #### S #### [facility] CLIA [id number] [address] DIAGNOSIS COMMENT Normal [facility] Comment on above: Order Comment: Tyesha mason Type: TISSUE SPECIMEN Ordering Facility: External Submitter Address: , , Result Comment: Israel Miguel Test (LDT) Disclaimer: Performance characteristics of immunohistochemical, immunofluorescent and chromogenic in-situ hybridization tests have been determined by the performing laboratory within [facility]???s [facility] Pathology and Laboratory Medicine [place] ([facility], [facility], [facility], [facility], [facility], or [facility]) in a manner consistent with CLIA requirements. One or more of these tests have not been cleared or approved by the FDA. [facility] is regulated under CLIA as qualified to perform high-complexity testing. These tests are used for clinical purposes. They should not be regarded as investigational or for research. Positive and negative controls stain appropriately. Performed By: #### S #### [facility] CLIA [id number] [address] FINAL DIAGNOSIS Normal [facility] Comment on above: Order Comment: Tyesha mason Type: TISSUE SPECIMEN Ordering Facility: External Submitter Address: , , Result Comment: Nikia Rios tomach, biopsy: - Acute and chronic gastritis with Helicobacter pylori identified on immunohistochemical stain. B. Distal esophagus, biopsy: - Benign squamous mucosa with mild chronic inflammation. Performed By: #### S #### [facility] CLIA [id number] [address] FINAL PERFORMING LAB Normal [facility] Comment on above: Order Comment: Tyesha mason Type: TISSUE SPECIMEN Ordering Facility: External Submitter Address: , , Result Comment: Diag nostic interpretation performed at [facility], [address] [place] [address] CLIA# [id number] [employer] Machine Operator: Omar Enrique M.D. Performed By: #### S #### [facility] CLIA [id number] [address] [place] [address] GROSS DESCRIPTION [facility] Comment on above: Order Comment: Speci men Type: TISSUE SPECIMEN Ordering Facility: External Submitter Address: , , Result Comment: A. S TOMACH BIOPSY Received in formalin labeled stomach biopsy are 3 irregular ocasio soft tissue fragments aggregating to 0.3 x 0.3 x 0.2 cm. The specimen is submitted entirely in A1. B. ESOPHAGUS BIOPSY Received in formalin labeled distal esophagus biopsy is a irregular ocasio soft tissue fragment measuring 0.2 x 0.1 x 0.1 cm. The specimen is submitted entirely in B1. Gross examination performed at [facility], [address] [place] [address] CLIA#[id number] OLS July 04, 2023 1:09 PM Performed By: #### S #### [facility] CLIA [id number] [address] [place] [address] NURSING PROGon 06-30-2023 NURSING PROG HNO ID: [id number] Author: Karen Crow RN Service: ? Author Type: Registered Nurse Type: Nursing Progress Note Filed: 06/30/2023 10:56 AM Note Text: Spoke with Dr. Bradshaw regarding patient's multiple allergies and requesting versed only for her EGD. Dr. Bradshaw stated that he has already discussed this patient with anesthesia and okay to proceed with procedure. [facility] Abhi 06-29-2023 CNPN Telephone (AKOBIE) JESSICA ASH ([id number]) 1945 F Date Time Provider Department 06/29/23 APRIL VELASQUEZ During your visit today, we recorded the following information about you: Allergies As of Date: 06/29/2023 Noted Allergy Reaction PROCHLORPERAZINE 07/27/2018 10 - Anaphylaxis ACETAMINOPHEN 01/23/2007 2 - Rash Comments: Other reaction(s): Rash ALBUTEROL 08/20/2022 14 - Other: See Comments Comments: heart racing. BP flucuating ALCOHOL 01/23/2007 all antibiotics [Other] 01/23/2007 all pain meds [Other] 01/23/2007 ASPIRIN 01/23/2007 12 - Shortness of Breath Comments: Other reaction(s): Shortness of breath BETADINE (POVIDONE-IODINE) 01/23/2007 CEPHALEXIN 07/27/2018 16 - Unknown Comments: Other reaction(s): Unknown CODEINE 07/27/2018 16 - Unknown Comments: Other reaction(s): Unknown COMPAZINE (PROCHLORPERAZINE EDISY*09/15/2018 10 - Anaphylaxis ct scan dye [Other] 01/23/2007 10 - Anaphylaxis DIPHENHYDRAMINE 07/27/2018 4 - Hives Comments: Other reaction(s): Hives DOXYCYCLINE 07/27/2018 16 - Unknown Comments: Other reaction(s): Unknown EGG 09/15/2018 16 - Unknown ERYTHROMYCIN BASE 07/27/2018 16 - Unknown Comments: Other reaction(s): Unknown HYDROMORPHONE 08/20/2022 16 - Unknown IBUPROFEN 07/27/2018 16 - Unknown Comments: Other reaction(s): Unknown KETOROLAC 08/20/2022 12 - Shortness of Breath LATEX 01/23/2007 LIDOCAINE 07/27/2018 7 - Swelling 9 - Itching Comments: Other reaction(s): Unknown MEPERIDINE 07/27/2018 16 - Unknown Comments: Other reaction(s): Unknown MILK 01/23/2007 MORPHINE 08/20/2022 16 - Unknown NAPROXEN 08/20/2022 16 - Unknown NSAIDS (NON-STEROIDAL ANTI-INFLAM*09/15/2018 10 - Anaphylaxis ONDANSETRON 08/20/2022 16 - Unknown PENICILLINS 07/27/2018 16 - Unknown Comments: Other reaction(s): Unknown SOAP 01/23/2007 SULFA (SULFONAMIDE ANTIBIOTICS) 08/20/2022 16 - Unknown TRAMADOL 06/01/2023 12 - Shortness of Breath vegetables [Other] 01/23/2007 WHEAT STARCH 01/23/2007 Date Reviewed: 06/27/2023 Reviewed by: Isabel Adan - Fully Assessed Primary Visit Diagnosis:Pre-op evaluation [Z01.818] Order(s):HEPATIC FUNCTION PNL [SQHFP] Order #: [id number] FUTURE Prescriptions as of 06/29/2023 - blood sugar diagnostic (ONETOUCH ULTRA BLUE TEST STRIP MISC) USE TO TEST BLOOD SUGAR DAILY DX E11.9 - olopatadine (PATANOL) 0.1 % ophthalmic solution INSTILL 1 DROP INTO BOTH EYES TWICE DAILY NEEDED AT 6-8 HOUR INTERVALS. - levothyroxine (SYNTHROID) 50 mcg tablet Take 50 mcg by mouth. Two tablet at breakfast - escitalopram oxalate (LEXAPRO) 20 mg tablet Take 20 mg by mouth once daily. - EPINEPHrine (EPIPEN) 0.3 mg/0.3 mL auto-injector as needed - lorazepam (ATIVAN) 1 mg ORAL Tab Take 1 mg by mouth three times daily as needed. Problem List As Of Date 06/29/2023 Noted Resolved PALPITATIONS [R00.2] 01/23/2007 Unspecified hypothyroidism [E03.9] 01/23/2007 SHORTNESS OF BREATH [R06.02] 01/23/2007 OBESITY NOS [E66.9] 01/23/2007 Unspecified sleep apnea [G47.30] 01/23/2007 MYALGIA AND MYOSITIS NOS [UUF7114] 01/23/2007 Multiple allergies [Z88.9] 09/15/2018 Chronic bilateral thoracic back pain [M54.6, G8*09/15/2018 COVID-19 [U07.1] 08/20/2022 Acute gastritis [K29.00] 08/20/2022 Chest pain [R07.9] 08/20/2022 Chronic obstructive lung disease (HCC) [J44.9] 08/20/2022 Contusion of knee [S80.00XA] 08/20/2022 Diabetes mellitus (HCC) [E11.9] 08/20/2022 Generalized anxiety disorder [F41.1] 08/20/2022 Hypomagnesemia [E83.42] 08/20/2022 Injury of low back [S39.92XA] 08/20/2022 Mass of head [R22.0] 08/20/2022 Mitral valve prolapse [I34.1] 08/20/2022 Pre-syncope [R55] 08/20/2022 Vertigo [R42] 08/20/2022 Adenocarcinoma of left lung (HCC) [C34.92] 06/27/2023 Pre-operative exam [Z01.818] 06/27/2023 Encounter Status:Closed by APRIL VELASQUEZ on 06/29/23 Normal [facility] Hepatic function 2000 panelo n 06-29-2023 Albumin [Mass/Vol] 3.8 g/dL Low 3.9 - 4.9 g/dL [facility] ALP [Catalytic activity/Vol] 87 U/L 34 - 123 U/L [facility] ALT [Catalytic activity/Vol] 18 U/L 7 - 38 U/L [facility] AST [Catalytic activity/Vol] 18 U/L 13 - 35 U/L [facility] Bilirubin [Mass/Vol] 0.3 mg/dL 0.2 - 1 .3 mg/dL [facility] Bilirubin.conjugated [Mass/Vol] <0.2 mg/dL [facility] Protein [Mass/Vol] 6.6 g/dL 6.3 - 8.0 g/dL [facility] Basic metabolic 2000 panelon 06-28-2023 Anion gap [Moles/Vol] 9 mmol/L Normal 06-27 [facility] Comment on above: Order Comment: Speci men Type: BLOOD SPECIMEN Ordering Facility: [facility] Address: [address] [place] [address] Performed By: #### 2 4321-2, 14083-8 #### [id number] [address] [place] [address] [place] Calcium [Mass/Vol] 8.8 mg/dL Normal 8.5-10.2 [facility] Comment on above: Order Comment: Speci men Type: BLOOD SPECIMEN Ordering Facility: [facility] Address: [address] [place], [place] [id number] Performed By: #### 2 4321-2, 47617-0 #### [facility] CLIA [id number] [address] [place] [address] [place] Chloride [Moles/Vol] 106 mmol/L High 97-105 [facility] Comment on above: Order Comment: Aubriei isabella Type: BLOOD SPECIMEN Ordering Facility: [facility] Address: [address] [place] [address] Performed By: #### 2 4321-2, 87024-5 #### [facility] CLIA [id number] [address] [place] [address] [place] CO2 [Moles/Vol] 24 mmol/L Normal 22-30 [facility] Comment on above: Order Comment: Tyesha mason Type: BLOOD SPECIMEN Ordering Facility: [facility] Address: [address] [place] [address] Performed By: #### 2 4321-2, 59619-8 #### [facility] CLIA [id number] [address] [place] [address] STATES OF [facility] Creatinine [Mass/Vol] 0.80 mg/dL Normal 0.58-0.96 [facility] Comment on above: Order Comment: Tyesha mason Type: BLOOD SPECIMEN Ordering Facility: [facility] Address: [address] [place] [address] Performed By: #### 2 4321-2, 89026-6 #### [facility] CLIA [id number] [address] [place] [address] OF [facility] Creatinine and Glomerular filtration rate.predicted panel (S/P/Bld) 76 mL/min/1.73m??? Normal >=60 [facility] Comment on above: Order Comment: Tyesha mason Type: BLOOD SPECIMEN Ordering Facility: [facility] Address: [address] [place] [address] Result Comment: Reyna mated Glomerular Filtration Rate (eGFR) is calculated using the 2020 CKD-EPI creatinine equation. This equation utilizes serum creatinine, sex, and age as parameters. The creatinine assay has traceable calibration to isotope dilution-mass spectrometry. Refer to KDIGO guidelines for clinical interpretation. In patients with unstable renal function, e.g. those with acute kidney injury, the eGFR may not accurately reflect actual GFR. Performed By: #### 2 4321-2, 62773-9 #### [facility] CLIA [id number] [address] [place] [address] [place] Glucose [Mass/Vol] 110 mg/dL High 74-99 [facility] Comment on above: Order Comment: Tyesha mason Type: BLOOD SPECIMEN Ordering Facility: [facility] Address: [address] [phone] Result Comment: The [place] Diabetes Association (ADA) provides guidance for cutoff values for fasting glucose and random glucose. The ADA defines fasting as no caloric intake for at least 8 hours. Fasting plasma glucose results between 100 to 125 mg/dL indicate increased risk for diabetes (prediabetes). Fasting plasma glucose results greater than or equal to 126 mg/dL meet the criteria for diagnosis of diabetes. In the absence of unequivocal hyperglycemia, results should be confirmed by repeat testing. In a patient with classic symptoms of hyperglycemia or hyperglycemic crisis, random plasma glucose results greater than or equal to 200 mg/dL meet the criteria for diagnosis of diabetes. Reference: Standards of Medical Care in Diabetes 2016, [place] Diabetes Association. Diabetes Care. 2016.39(Suppl 1). Performed By: #### 2 4320-2, 93291-7 #### [facility] CLIA [id number] [address] [place] [address] [place] Potassium [Moles/Vol] 4.1 mmol/L Normal 3.7-5.1 [facility] Comment on above: Order Comment: Tyesha mason Type: BLOOD SPECIMEN Ordering Facility: [facility] Address: [address] [place] [address] Performed By: #### 2 432-2, 30280-8 #### [facility] CLIA [id number] [address] [place] [address] [place] Sodium [Moles/Vol] 139 mmol/L Normal 136-144 [facility] Comment on above: Order Comment: Speci men Type: BLOOD SPECIMEN Ordering Facility: [facility] Address: [address] [phone] Performed By: #### 2 4321-2, 89579-8 #### [facility] CLIA [id number] [address] [place] [address] Urea nitrogen [Mass/Vol] 23 mg/dL High 7-21 [facility] Comment on above: Order Comment: Speci men Type: BLOOD SPECIMEN Ordering Facility: [facility] Address: [address] [phone] Performed By: #### 2 4321-2, 12301-1 #### [facility] CLIA [id number] [address] [place] [address] STATES OF [facility] Anion gap [Moles/Vol] 9 mmol/L 9 - 18 mmol/L [facility] Calcium [Mass/Vol] 8.8 mg/dL 8.5 - 10. 2 mg/dL [facility] Chloride [Moles/Vol] 106 mmol/L High 97 - 10 5 mmol/L [facility] CO2 [Moles/Vol] 24 mmol/L 22 - 30 mmol/L [facility] Creatinine [Mass/Vol] 0.80 mg/dL 0.58 - 0.96 mg/dL [facility] Estimated Glomerular Filtration Rate 76 mL/min/1.73m >=60 mL/min/1.73 m [facility] Glucose [Mass/Vol] 110 mg/dL High 74 - 99 mg/dL [facility] Potassium [Moles/Vol] 4.1 mmol/L 3.7 - 5.1 mmol/L [facility] Sodium [Moles/Vol] 139 mmol/L 136 - 144 mmol/L [facility] Urea nitrogen [Mass/Vol] 23 mg/dL High 7 - 21 mg/dL [facility] CBC panel Auto (Bld)on 06-28 Erythrocyte distribution width (RBC) [Ratio] 14.8 % Normal 11.5-15.0 [facility] Comment on above: Order Comment: Speci men Type: BLOOD SPECIMEN Ordering Facility: [facility] Address: [address] Performed By: #### 5 8410-2 #### [facility] CLIA [id number] [address] [place] [address] [place] Hematocrit (Bld) [Volume fraction] 41.1 % Normal 36.0-46.0 [facility] Comment on above: Order Comment: Speci men Type: BLOOD SPECIMEN Ordering Facility: [facility] Address: [address] [address] Performed By: #### 5 8410-2 #### [facility] CLIA [id number] [address] [place] [address] [place] Hemoglobin (Bld) [Mass/Vol] 13.4 g/dL Normal 11.5-15.5 [facility] Comment on above: Order Comment: Speci men Type: BLOOD SPECIMEN Ordering Facility: [facility] Address: [address] [address] Performed By: #### 5 8410-2 #### [facility] CLIA [id number] [address] [place] [address] [place] MCH (RBC) [Entitic mass] 28.8 pg Normal 26.0-34.0 [facility] Comment on above: Order Comment: Speci men Type: BLOOD SPECIMEN Ordering Facility: [facility] Address: [address] Performed By: #### 5 8410-2 #### [facility] CLIA [id number] [address] [place] [address] [place] MCHC (RBC) [Mass/Vol] 32.6 g/dL Normal 30.5-36.0 [facility] Comment on above: Order Comment: Speci men Type: BLOOD SPECIMEN Ordering Facility: [facility] Address: [address] [address] Performed By: #### 5 8410-2 #### [facility] CLIA [id number] [address] [place] [address] [place] MCV (RBC) [Entitic vol] 88.4 fL Normal 80.0-100.0 [facility] Comment on above: Order Comment: Speci men Type: BLOOD SPECIMEN Ordering Facility: [facility] Address: [address] [place] [address] Performed By: #### 5 8410-2 #### [facility] CLIA [id number] [address] [place] [address] [place] Nucleated RBC (Bld) [#/Vol] 10*3/uL Normal <0.01 [facility] Comment on above: Order Comment: Speci men Type: BLOOD SPECIMEN Ordering Facility: [facility] Address: [address] [place] [address] Performed By: #### 5 8410-2 #### [id number] [address] [place] [address] [place] Platelet mean volume (Bld) [Entitic vol] 9.4 fL Normal 9.0-12.7 [facility] Comment on above: Order Comment: Speci men Type: BLOOD SPECIMEN Ordering Facility: [facility] Address: [address] [place] [address] Performed By: #### 5 8410-2 #### [facility] CLIA [id number] [address] [place] [address] [place] Platelets (Bld) [#/Vol] 233 10*3/uL Normal 150-400 [facility] Comment on above: Order Comment: Speci men Type: BLOOD SPECIMEN Ordering Facility: [facility] Address: [address] [place] [address] Performed By: #### 5 8410-2 #### [facility] CLIA [id number] [address] [place] [address] [place] RBC (Bld) [#/Vol] 4.65 10*6/uL Normal 3.90-5.20 [facility] Comment on above: Order Comment: Speci men Type: BLOOD SPECIMEN Ordering Facility: [facility] Address: [address] [phone] Performed By: #### 5 8410-2 #### [facility] CLIA [id number] [address] [place] WBC (Bld) [#/Vol] 5.85 10*3/uL Normal 3.70-11.00 [facility] Comment on above: Order Comment: Speci men Type: BLOOD SPECIMEN Ordering Facility: [facility] Address: [address] [place] [address] Performed By: #### 5 8410-2 #### [facility] CLIA [id number] [address] [place] [address] [place] Erythrocyte distribution width (RBC) [Ratio] 14.8 % 11.5 - 15.0 % [facility] Hematocrit (Bld) [Volume fraction] 41.1 % 36.0 - 46.0 % [facility] Hemoglobin (Bld) [Mass/Vol] 13.4 g/dL 11.5 - 15.5 g/dL [facility] MCH (RBC) [Entitic mass] 28.8 pg 26.0 - 34.0 pg [facility] MCHC (RBC) [Mass/Vol] 32.6 g/dL 30.5 - 36.0 g/dL [facility] MCV (RBC) [Entitic vol] 88.4 fL 80.0 - 100.0 fL [facility] Nucleated RBC (Bld) [#/Vol] <0.01 k/uL [facility] Platelet mean volume (Bld) [Entitic vol] 9.4 fL 9.0 - 12.7 fL [facility] Platelets (Bld) [#/Vol] 233 10*3/uL 150 - 400 k/uL [facility] RBC (Bld) [#/Vol] 4.65 10*6/uL 3.90 - 5.2 0 m/uL [facility] WBC (Bld) [#/Vol] 5.85 10*3/uL 3.70 - 11.00 k/uL [facility] CNPNon 06-28-2023 TONIAN Telephone (AKPRAD) JESSICA ASH ([id number]) 1945 F Date Time Provider Department 06/28/23 WARREN MENDES During your visit today, we recorded the following information about you: Warren Mendes APRN.TONIA 06/28/2023 10:21 AM Signed Please see phone conversations from 06/28 for complete documentation. Pt declines Tuesday PAT visit, declined offer to reschedule to . She will accept a PAT visit for Tuesday am. Orders placed for pre op bloodwork. Pt to obtain at Warren. Warren Mendes APRN.TONIA Allergies As of Date: 06/28/2023 Noted Allergy Reaction PROCHLORPERAZINE 07/27/2018 10 - Anaphylaxis ACETAMINOPHEN 01/23/2007 2 - Rash Comments: Other reaction(s): Rash ALBUTEROL 08/20/2022 14 - Other: See Comments Comments: heart racing. BP flucuating ALCOHOL 01/23/2007 all antibiotics [Other] 01/23/2007 all pain meds [Other] 01/23/2007 ASPIRIN 01/23/2007 12 - Shortness of Breath Comments: Other reaction(s): Shortness of breath BETADINE (POVIDONE-IODINE) 01/23/2007 CEPHALEXIN 07/27/2018 16 - Unknown Comments: Other reaction(s): Unknown CODEINE 07/27/2018 16 - Unknown Comments: Other reaction(s): Unknown COMPAZINE (PROCHLORPERAZINE EDISY*09/15/2018 10 - Anaphylaxis ct scan dye [Other] 01/23/2007 10 - Anaphylaxis DIPHENHYDRAMINE 07/27/2018 4 - Hives Comments: Other reaction(s): Hives DOXYCYCLINE 07/27/2018 16 - Unknown Comments: Other reaction(s): Unknown EGG 09/15/2018 16 - Unknown ERYTHROMYCIN BASE 07/27/2018 16 - Unknown Comments: Other reaction(s): Unknown HYDROMORPHONE 08/20/2022 16 - Unknown IBUPROFEN 07/27/2018 16 - Unknown Comments: Other reaction(s): Unknown KETOROLAC 08/20/2022 12 - Shortness of Breath LATEX 01/23/2007 LIDOCAINE 07/27/2018 7 - Swelling 9 - Itching Comments: Other reaction(s): Unknown MEPERIDINE 07/27/2018 16 - Unknown Comments: Other reaction(s): Unknown MILK 01/23/2007 MORPHINE 08/20/2022 16 - Unknown NAPROXEN 08/20/2022 16 - Unknown NSAIDS (NON-STEROIDAL ANTI-INFLAM*09/15/2018 10 - Anaphylaxis ONDANSETRON 08/20/2022 16 - Unknown PENICILLINS 07/27/2018 16 - Unknown Comments: Other reaction(s): Unknown SOAP 01/23/2007 SULFA (SULFONAMIDE ANTIBIOTICS) 08/20/2022 16 - Unknown TRAMADOL 06/01/2023 12 - Shortness of Breath vegetables [Other] 01/23/2007 WHEAT STARCH 01/23/2007 Date Reviewed: 06/27/2023 Reviewed by: Isabel Adan - Fully Assessed Primary Visit Diagnosis:Pre-op evaluation [Z01.818] Other Visit Diagnosis: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 - levothyroxine (SYNTHROID) 50 mcg tablet Take 50 mcg by mouth. Two tablet at breakfast - escitalopram oxalate (LEXAPRO) 20 mg tablet Take 20 mg by mouth once daily. - EPINEPHrine (EPIPEN) 0.3 mg/0.3 mL auto-injector as needed - lorazepam (ATIVAN) 1 mg ORAL Tab Take 1 mg by mouth three times daily as needed. Problem List As Of Date 06/28/2023 Noted Resolved PALPITATIONS [R00.2] 01/23/2007 Unspecified hypothyroidism [E03.9] 01/23/2007 SHORTNESS OF BREATH [R06.02] 01/23/2007 OBESITY NOS [E66.9] 01/23/2007 Unspecified sleep apnea [G47.30] 01/23/2007 MYALGIA AND MYOSITIS NOS [GRG2259] 01/23/2007 Multiple allergies [Z88.9] 09/15/2018 Chronic bilateral thoracic back pain [M54.6, G8*09/15/2018 COVID-19 [U07.1] 08/20/2022 Acute gastritis [K29.00] 08/20/2022 Chest pain [R07.9] 08/20/2022 Chronic obstructive lung disease (HCC) [J44.9] 08/20/2022 Contusion of knee [S80.00XA] 08/20/2022 Diabetes mellitus (HCC) [E11.9] 08/20/2022 Generalized anxiety disorder [F41.1] 08/20/2022 Hypomagnesemia [E83.42] 08/20/2022 Injury of low back [S39.92XA] 08/20/2022 Mass of head [R22.0] 08/20/2022 Mitral valve prolapse [I34.1] 08/20/2022 Pre-syncope [R55] 08/20/2022 Vertigo [R42] 08/20/2022 Adenocarcinoma of left lung (HCC) [C34.92] 06/27/2023 Pre-operative exam [Z01.818] 06/27/2023 Encounter Status:Closed by WARREN MENDES on 06/28/23 Normal [facility] Hepatic function 2000 panelo n 06-28-2023 Albumin [Mass/Vol] 3.8 g/dL Low 3.9-4.9 [facility] Comment on above: Order Comment: Speci men Type: BLOOD SPECIMEN Ordering Facility: [facility] Address: [address] Performed By: #### 2 4320-2, 02889-5 #### [facility] CLIA [id number] [address] [place] [address] OF [facility] ALP [Catalytic activity/Vol] 87 U/L Normal 34-123 [facility] Comment on above: Order Comment: Speci men Type: BLOOD SPECIMEN Ordering Facility: [facility] Address: [address] [address] Performed By: #### 2 4320-2, 73161-9 #### [facility] CLIA [id number] [address] [place] [address] [place] ALT [Catalytic activity/Vol] 18 U/L Normal 7-38 [facility] Comment on above: Order Comment: Speci men Type: BLOOD SPECIMEN Ordering Facility: [facility] Address: [address] [address] Performed By: #### 2 2, 54654-0 #### [facility] CLIA [id number] [address] [place] [address] [place] AST [Catalytic activity/Vol] 18 U/L Normal 13-35 [facility] Comment on above: Order Comment: Speci men Type: BLOOD SPECIMEN Ordering Facility: [facility] Address: [address] [address] Performed By: #### 2 4320-2, 62762-5 #### [facility] CLIA [id number] [address] [place] [address] [place] Bilirubin [Mass/Vol] 0.3 mg/dL Normal 0.2-1.3 [facility] Comment on above: Order Comment: Speci men Type: BLOOD SPECIMEN Ordering Facility: [facility] Address: [address] [address] Performed By: #### 2 4320-2, 49530-8 #### [facility] CLIA [id number] [address] [place] [address] [place] Bilirubin.conjugated [Mass/Vol] mg/dL Normal <0.2 [facility] Comment on above: Order Comment: Tyesha mason Type: BLOOD SPECIMEN Ordering Facility: [facility] Address: [address] [place] [address] Performed By: #### 2 4321-2, 07581-4 #### [facility] CLIA [id number] [address] [place] [address] [place] Protein [Mass/Vol] 6.6 g/dL Normal 6.3-8.0 [facility] Comment on above: Order Comment: Tyesha mason Type: BLOOD SPECIMEN Ordering Facility: [facility] Address: [address] [place] [address] Performed By: #### 2 4321-2, 18652-7 #### [facility] CLIA [id number] [address] [place] [address] [place] PT panel Coag (PPP)on 2022 INR Coag (PPP) [Relative time] 0.9 {INR} Normal 0.9-1.3 [facility] Comment on above: Order Comment: Tyesha mason Type: BLOOD SPECIMEN Ordering Facility: [facility] Address: [address] [place] [address] Result Comment: Bertha min K Antagonist (VKA) Therapeutic Range: INR 2 to 3 (Target INR of 2.5) Note: For patients treated with VKA drugs, such as warfarin, the [place] [employer] 2012 Guideline recommends a therapeutic INR range of 2 to 3 (target INR of 2.5). This recommendation includes high-risk patients with antiphospholipid syndrome with previous arterial or venous thromboembolism, current-generation mechanical or bioprosthetic aortic heart valve replacement. Note: Patients with mechanical aortic valve replacement and additional risk factors for thromboembolic events (atrial fibrillation, previous thromboembolism, LV dysfunction, hypercoagulable conditions) or an older generation mechanical AVR (i.e., ball in-Cage) or any mechanical MVR should have a INR therapeutic range of 2.5 to 3.5 (target INR of 3). Bruno GH, et al. Chest 2012, 141:7S-47S Antonietta RA, et al. [facility] 2017, 70: 252-289 Performed By: #### 5 8410-2 #### [facility] CLIA [id number] [address] [place] [address] [place] PT Coag (PPP) [Time] 9.6 s Normal <13.1 [facility] Comment on above: Order Comment: Speci men Type: BLOOD SPECIMEN Ordering Facility: [facility] Address: [address] [place] [address] Performed By: #### 5 8410-2 #### [facility] CLIA [id number] [address] [place] [address] [place] INR Coag (PPP) [Relative time] 0.9 {INR} 0.9 - 1.3 [facility] PT Coag (PPP) [Time] 9.6 s <13.1 sec [facility] TYPE AND SCREEN,30 DAYon ABO O Normal [facility] Comment on above: Order Comment: Speci men Type: BLOOD SPECIMEN Ordering Facility: [facility] Address: [address] [place] [address] Performed By: #### T SCR30 #### [facility] CLIA [id number] [address] [place] [address] [place] HISTORICAL AB SCR STATUS Negative Normal [facility] Comment on above: Order Comment: Speci men Type: BLOOD SPECIMEN Ordering Facility: [facility] Address: [address] [place] [address] Performed By: #### T SCR30 #### [facility] CLIA [id number] [address] [place] [address] [place] Rh Nom (Bld) Positive Normal [facility] Comment on above: Order Comment: Speci men Type: BLOOD SPECIMEN Ordering Facility: [facility] Address: [address] [place], [place] [id number] Performed By: #### T SCR30 #### [facility] [place] [id number] [address] [facility] [address] [place] US ABD RIGHT UPPER QUADRANTo n 06-28-2023 US ABD RIGHT UPPER QUADRANT * * *Final Report* * * DATE OF EXAM: Jun 28 2023 12:00PM WRU 1032 - US ABD RIGHT UPPER QUADRANT / PROCEDURE REASON: RUQ pain * * * * Physician Interpretation * * * * EXAMINATION: RIGHT UPPER QUADRANT ULTRASOUND CLINICAL HISTORY: Right upper quadrant pain TECHNIQUE: Sonography of the right upper quadrant was performed. Images were obtained and stored in a permanent archive and interpreted remotely. MQ: URUQ_2 COMPARISON: None. RESULT: Pancreas: Normal sonographic appearance. Portions obscured: tail Liver: Echotexture: Normal, homogeneous. Echogenicity: Normal Surface contour: Smooth Lesions: None. Biliary: No intrahepatic biliary duct dilation. CBD: 0.4 cm at the hilum. Gallbladder: Prior cholecystectomy Right Kidney: Measures 10.3 cm in longitudinal dimension. Normal cortical echogenicity. 2.4 cm parapelvic cyst. No hydronephrosis. Ascites: None. IMPRESSION: 1. Prior cholecystectomy. 2. Right renal parapelvic cyst. Professional Shopper: DOMINIQUE Transcribe Date/Time: Jun 28 2023 12:49P Dictated by : FELISHA SMITH MD This examination was interpreted and the report reviewed and electronically signed by: FELISHA SMITH MD on Jun 28 2023 12:50PM EST [id number] Normal [facility] CNOVon 06-27-2023 CNOV Office Visit (AGGAST W) JESSICA ASH ([id number]) 1945 F Date Time Provider Department 06/27/23 1:00 PM DAE BRADSHAW AGGASTW During your visit today, we recorded the following information about you: Weight Height 86.6 kg 1.651 m Dae Bradshaw MD 06/27/2023 1:34 PM Addendum HPI: Jessica Ash is a 78 year old female who presents for Difficulty Swallowing and New Patient. Pt is here bc she is scheduled for a pulm lobectomy w Dr. Riley and had a recent PET scan that showed activity in the esophagus. Has acid reflux but is not on Rx, has reflux w beef and [ork allison and its about daily. Has globus sensation and some dysphagia to solids in upper chest. Has occas RUQ pain after po at times after po underneath her R breast. Has occas alt b habits but has nl stool pattern 4-5 ds of the wk. No blood, wt loss, n/v. Nl LFTs in April. Has mult adverse effects w anesthesia, some narcotis. Dr. Mendoza's note reviewed. Current Outpatient Medications Medication Sig blood sugar diagnostic (COINPLUSTOUCH ULTRA BLUE TEST STRIP [facility]) USE TO TEST BLOOD SUGAR DAILY DX E11.9 olopatadine (PATANOL) 0.1 % ophthalmic solution INSTILL 1 DROP INTO BOTH EYES TWICE DAILY NEEDED AT 6-8 HOUR INTERVALS. levothyroxine (SYNTHROID) 50 mcg tablet Take 50 mcg by mouth. Two tablet at breakfast escitalopram oxalate (LEXAPRO) 20 mg tablet Take 20 mg by mouth once daily. EPINEPHrine (EPIPEN) 0.3 mg/0.3 mL auto-injector as needed lorazepam (ATIVAN) 1 mg ORAL Tab Take 1 mg by mouth three times daily as needed. No current facility-administered medications for this visit. PAST MEDICAL HISTORY Diagnosis Date COPD (chronic obstructive pulmonary disease) (HCC) IFG (impaired fasting glucose) Myalgia and myositis, unspecified 01/23/2007 Obesity, unspecified 01/23/2007 Palpitations 01/23/2007 Shortness of breath 01/23/2007 Unspecified hypothyroidism 01/23/2007 Unspecified sleep apnea 01/23/2007 PAST SURGICAL HISTORY Procedure Laterality Date CHOLECYSTECTOMY Cholecystectomy PAST SURGICAL HISTORY OF repair of fractured jaw TOTAL ABDOMINAL HYSTERECT W/WO RMVL TUBE OVARY Hysterectomy, BRIANA FAMILY HISTORY Problem Relation Age of Onset Diabetes Mother living at age 87. congestive failure, COPD Heart Father in his 70's, several MD's other (pancreatic cancer [Other]) Brother at age 58 Colon Cancer Son at age 20 Social History Tobacco Use Smoking status: Former Packs/day: 3.00 Years: 30.00 Additional pack years: 0.00 Total pack years: 90.00 Types: Cigarettes Quit date: 1994 Years since quittin.7 Smokeless tobacco: Never Tobacco comments: quit 1994 Substance Use Topics Alcohol use: No ALLERGIES Allergen Reactions Prochlorperazine Anaphylaxis Acetaminophen Rash Other reaction(s): Rash Albuterol Other: See Comments heart racing. BP flucuating Alcohol All Antibiotics [Ot* All Pain Meds [Othe* Aspirin Shortness of Breath Other reaction(s): Shortness of breath Betadine [Povidone-* Cephalexin Unknown Other reaction(s): Unknown Codeine Unknown Other reaction(s): Unknown Compazine [Prochlor* Anaphylaxis Ct Scan Dye [Other] Anaphylaxis Diphenhydramine Hives Other reaction(s): Hives Doxycycline Unknown Other reaction(s): Unknown Egg Unknown Erythromycin Base Unknown Other reaction(s): Unknown Hydromorphone Unknown Ibuprofen Unknown Other reaction(s): Unknown Ketorolac Shortness of Breath Latex Lidocaine Swelling, Itching Other reaction(s): Unknown Meperidine Unknown Other reaction(s): Unknown Milk Morphine Unknown Naproxen Unknown Nsaids (Non-Steroid* Anaphylaxis Ondansetron Unknown Penicillins Unknown Other reaction(s): Unknown Soap Sulfa (Sulfonamide * Unknown Tramadol Shortness of Breath Vegetables [Other] Wheat Starch REVIEW OF SYSTEMS GENERAL: No weight loss, malaise or fevers. HEENT: Negative for frequent or significant headaches, No changes in hearing or vision, no nose bleeds or other nasal problems. NECK: Negative for lumps, goiter, pain and significant neck swelling. RESPIRATORY: Negative for cough, hemoptysis, wheezing or shortness of breath CARDIOVASCULAR: Negative for chest pain, leg swelling or palpitations GI: See HPI : No history of dysuria, frequency or incontinence MUSCULOSKELETAL: Negative for joint pain or swelling, back pain or muscle pain. SKIN: Negative for lesions, rash, and itching PSYCH: Negative for sleep disturbance, mood disorder and recent psychosocial stressors NEURO: No history of headaches, syncope, paralysis, seizures or tremors PHYSICAL EXAMINATION: Ht 5' 5 (1.65m) Wt 191 lb (86.6kg) BMI 31.78 kg/(m2). GENERAL APPEARANCE: Well appearing, alert, in no acute distress, well-hydrated, well nourished.. SKIN: Skin color, texture, turgor normal, no suspicious r (more content not included)... Normal [facility] CNPNon 06-27-2023 CNPN Telephone ([place]) JESSICA ASH ([id number]) 1945 F Date Time Provider Department 06/27/23 SHADE RILEY During your visit today, we recorded the following information about you: Theo Marsh LPN 06/27/2023 2:04 PM Signed Patient calling in and left message that she has questions regarding her CAT scan done (and results) on Tuesday and her Nuclear Stress Test that was done today. hTeo Marsh LPN June 27, 2023 2:03 PM Xochilt Klein APRN.TONIA 06/27/2023 3:01 PM Signed Returned pt's phone call regarding recent testing that was completed. Unable to given CT chest results d/t them still in process. LM regarding Stress test results and that it is negative for ischemia. No further workup needed there. Xochilt Klien APRN.DRIVER RECRUITER Allergies As of Date: 06/27/2023 Noted Allergy Reaction PROCHLORPERAZINE 07/27/2018 10 - Anaphylaxis ACETAMINOPHEN 01/23/2007 2 - Rash Comments: Other reaction(s): Rash ALBUTEROL 08/20/2022 14 - Other: See Comments Comments: heart racing. BP flucuating ALCOHOL 01/23/2007 all antibiotics [Other] 01/23/2007 all pain meds [Other] 01/23/2007 ASPIRIN 01/23/2007 12 - Shortness of Breath Comments: Other reaction(s): Shortness of breath BETADINE (POVIDONE-IODINE) 01/23/2007 CEPHALEXIN 07/27/2018 16 - Unknown Comments: Other reaction(s): Unknown CODEINE 07/27/2018 16 - Unknown Comments: Other reaction(s): Unknown COMPAZINE (PROCHLORPERAZINE EDISY*09/15/2018 10 - Anaphylaxis ct scan dye [Other] 01/23/2007 10 - Anaphylaxis DIPHENHYDRAMINE 07/27/2018 4 - Hives Comments: Other reaction(s): Hives DOXYCYCLINE 07/27/2018 16 - Unknown Comments: Other reaction(s): Unknown EGG 09/15/2018 16 - Unknown ERYTHROMYCIN BASE 07/27/2018 16 - Unknown Comments: Other reaction(s): Unknown HYDROMORPHONE 08/20/2022 16 - Unknown IBUPROFEN 07/27/2018 16 - Unknown Comments: Other reaction(s): Unknown KETOROLAC 08/20/2022 12 - Shortness of Breath LATEX 01/23/2007 LIDOCAINE 07/27/2018 7 - Swelling 9 - Itching Comments: Other reaction(s): Unknown MEPERIDINE 07/27/2018 16 - Unknown Comments: Other reaction(s): Unknown MILK 01/23/2007 MORPHINE 08/20/2022 16 - Unknown NAPROXEN 08/20/2022 16 - Unknown NSAIDS (NON-STEROIDAL ANTI-INFLAM*09/15/2018 10 - Anaphylaxis ONDANSETRON 08/20/2022 16 - Unknown PENICILLINS 07/27/2018 16 - Unknown Comments: Other reaction(s): Unknown SOAP 01/23/2007 SULFA (SULFONAMIDE ANTIBIOTICS) 08/20/2022 16 - Unknown TRAMADOL 06/01/2023 12 - Shortness of Breath vegetables [Other] 01/23/2007 WHEAT STARCH 01/23/2007 Date Reviewed: 06/27/2023 Reviewed by: Isabel Adan - Fully Assessed Reason for Visit: Patient Question [7437] Cmt: Question on CT scan and Nuclear Stress Test Prescriptions as of 06/27/2023 - blood sugar diagnostic (ONETOUCH ULTRA BLUE TEST STRIP [facility]) USE TO TEST BLOOD SUGAR DAILY DX E11.9 - olopatadine (PATANOL) 0.1 % ophthalmic solution INSTILL 1 DROP INTO BOTH EYES TWICE DAILY NEEDED AT 6-8 HOUR INTERVALS. - levothyroxine (SYNTHROID) 50 mcg tablet Take 50 mcg by mouth. Two tablet at breakfast - escitalopram oxalate (LEXAPRO) 20 mg tablet Take 20 mg by mouth once daily. - EPINEPHrine (EPIPEN) 0.3 mg/0.3 mL auto-injector as needed - lorazepam (ATIVAN) 1 mg ORAL Tab Take 1 mg by mouth three times daily as needed. Problem List As Of Date 06/27/2023 Noted Resolved PALPITATIONS [R00.2] 01/23/2007 Unspecified hypothyroidism [E03.9] 01/23/2007 SHORTNESS OF BREATH [R06.02] 01/23/2007 OBESITY NOS [E66.9] 01/23/2007 Unspecified sleep apnea [G47.30] 01/23/2007 MYALGIA AND MYOSITIS NOS [AKR3108] 01/23/2007 Multiple allergies [Z88.9] 09/15/2018 Chronic bilateral thoracic back pain [M54.6, G8*09/15/2018 COVID-19 [U07.1] 08/20/2022 Acute gastritis [K29.00] 08/20/2022 Chest pain [R07.9] 08/20/2022 Chronic obstructive lung disease (HCC) [J44.9] 08/20/2022 Contusion of knee [S80.00XA] 08/20/2022 Diabetes mellitus (HCC) [E11.9] 08/20/2022 Generalized anxiety disorder [F41.1] 08/20/2022 Hypomagnesemia [E83.42] 08/20/2022 Injury of low back [S39.92XA] 08/20/2022 Mass of head [R22.0] 08/20/2022 Mitral valve prolapse [I34.1] 08/20/2022 Pre-syncope [R55] 08/20/2022 Vertigo [R42] 08/20/2022 Adenocarcinoma of left lung (HCC) [C34.92] 06/27/2023 Pre-operative exam [Z01.818] 06/27/2023 Encounter Status:Closed by XOCHILT KLEIN on 06/27/23 [facility] CNPN Telephone (AGGASTW) ANNABELLAJESSICA ([id number]) 1945 F Date Time Provider Department 06/27/23 DAE BRADSHAW During your visit today, we recorded the following information about you: AndrewSevenkaylie 06/27/2023 1:57 PM Signed Spoke with patient and got them schedule for an EGD W/ DIL on 07/01/23 @ 1130 with the arrival time of 1030 and w/Dr. BRADSHAW. The patient was given prep instruction at their office visit. Sevenkaylie Andrew June 27, 2023 1:55 PM Allergies As of Date: 06/27/2023 Noted Allergy Reaction PROCHLORPERAZINE 07/27/2018 10 - Anaphylaxis ACETAMINOPHEN 01/23/2007 2 - Rash Comments: Other reaction(s): Rash ALBUTEROL 08/20/2022 14 - Other: See Comments Comments: heart racing. BP flucuating ALCOHOL 01/23/2007 all antibiotics [Other] 01/23/2007 all pain meds [Other] 01/23/2007 ASPIRIN 01/23/2007 12 - Shortness of Breath Comments: Other reaction(s): Shortness of breath BETADINE (POVIDONE-IODINE) 01/23/2007 CEPHALEXIN 07/27/2018 16 - Unknown Comments: Other reaction(s): Unknown CODEINE 07/27/2018 16 - Unknown Comments: Other reaction(s): Unknown COMPAZINE (PROCHLORPERAZINE EDISY*09/15/2018 10 - Anaphylaxis ct scan dye [Other] 01/23/2007 10 - Anaphylaxis DIPHENHYDRAMINE 07/27/2018 4 - Hives Comments: Other reaction(s): Hives DOXYCYCLINE 07/27/2018 16 - Unknown Comments: Other reaction(s): Unknown EGG 09/15/2018 16 - Unknown ERYTHROMYCIN BASE 07/27/2018 16 - Unknown Comments: Other reaction(s): Unknown HYDROMORPHONE 08/20/2022 16 - Unknown IBUPROFEN 07/27/2018 16 - Unknown Comments: Other reaction(s): Unknown KETOROLAC 08/20/2022 12 - Shortness of Breath LATEX 01/23/2007 LIDOCAINE 07/27/2018 7 - Swelling 9 - Itching Comments: Other reaction(s): Unknown MEPERIDINE 07/27/2018 16 - Unknown Comments: Other reaction(s): Unknown MILK 01/23/2007 MORPHINE 08/20/2022 16 - Unknown NAPROXEN 08/20/2022 16 - Unknown NSAIDS (NON-STEROIDAL ANTI-INFLAM*09/15/2018 10 - Anaphylaxis ONDANSETRON 08/20/2022 16 - Unknown PENICILLINS 07/27/2018 16 - Unknown Comments: Other reaction(s): Unknown SOAP 01/23/2007 SULFA (SULFONAMIDE ANTIBIOTICS) 08/20/2022 16 - Unknown TRAMADOL 06/01/2023 12 - Shortness of Breath vegetables [Other] 01/23/2007 WHEAT STARCH 01/23/2007 Date Reviewed: 06/27/2023 Reviewed by: Isabel Adan - Fully Assessed Reason for Visit: Future Appointment [256] Prescriptions as of 06/27/2023 - blood sugar diagnostic (COINPLUSTOUCH ULTRA BLUE TEST STRIP [facility]) USE TO TEST BLOOD SUGAR DAILY DX E11.9 - olopatadine (PATANOL) 0.1 % ophthalmic solution INSTILL 1 DROP INTO BOTH EYES TWICE DAILY NEEDED AT 6-8 HOUR INTERVALS. - levothyroxine (SYNTHROID) 50 mcg tablet Take 50 mcg by mouth. Two tablet at breakfast - escitalopram oxalate (LEXAPRO) 20 mg tablet Take 20 mg by mouth once daily. - EPINEPHrine (EPIPEN) 0.3 mg/0.3 mL auto-injector as needed - lorazepam (ATIVAN) 1 mg ORAL Tab Take 1 mg by mouth three times daily as needed. Problem List As Of Date 06/27/2023 Noted Resolved PALPITATIONS [R00.2] 01/23/2007 Unspecified hypothyroidism [E03.9] 01/23/2007 SHORTNESS OF BREATH [R06.02] 01/23/2007 OBESITY NOS [E66.9] 01/23/2007 Unspecified sleep apnea [G47.30] 01/23/2007 MYALGIA AND MYOSITIS NOS [[id number]] 01/23/2007 Multiple allergies [Z88.9] 09/15/2018 Chronic bilateral thoracic back pain [M54.6, G8*09/15/2018 COVID-19 [U07.1] 08/20/2022 Acute gastritis [K29.00] 08/20/2022 Chest pain [R07.9] 08/20/2022 Chronic obstructive lung disease (HCC) [J44.9] 08/20/2022 Contusion of knee [S80.00XA] 08/20/2022 Diabetes mellitus (HCC) [E11.9] 08/20/2022 Generalized anxiety disorder [F41.1] 08/20/2022 Hypomagnesemia [E83.42] 08/20/2022 Injury of low back [S39.92XA] 08/20/2022 Mass of head [R22.0] 08/20/2022 Mitral valve prolapse [I34.1] 08/20/2022 Pre-syncope [R55] 08/20/2022 Vertigo [R42] 08/20/2022 Adenocarcinoma of left lung (HCC) [C34.92] 06/27/2023 Pre-operative exam [Z01.818] 06/27/2023 Encounter Status:Closed by ISABEL ADAN on 06/27/23 Normal [facility] NM CARDIAC PERF STRESS/PHARM on 06-27-2023 NM CARDIAC PERF STRESS/PHARM * * *Final Report* * * DATE OF EXAM: Jun 27 2023 10:49AM [facility] 0006 - [place] CARDIAC PERF STRESS/PHARM / PROCEDURE REASON: multiple diagnoses * * * * Physician Interpretation * * * * Stress Php Mysql Web Developer Report: [facility] Date of service: 06/27/2023 7:30:00 AM Supervising physician: John Morrison MD PATIENT: Name: MRS. JESSICA ASH Age: 78 years Gender: F The supervising physician was in the department and immediately available. * * * Final * * * ---- PATIENT: Name: MRS. JESSICA ASH Age: 78 years Gender: F CONCLUSIONS: 1. SPECT Perfusion Study: Normal. 2. There is no scintigraphic evidence for inducible ischemia. 3. No evidence of scarred myocardium. 4. Left ventricle is normal in size. The left ventricle systolic function is normal. 5. Right ventricle is normal in size. The right ventricle systolic function is normal. 6. This is a low risk scan. Gated Stress FBP LVEF % 71 Prior Study Comparison No prior nuclear cardiology exam available for comparison. Nuclear Med Report:1-Day Gated SPECT Myocardial Perfusion with Regadenoson Stress: Myocardial perfusion imaging was performed at rest 30 minutes following the IV injection of the radiotracer. The patient received 0.4 mg of regadenoson, via rapid IV push, immediately followed by radiotracer IV. Gated post stress tomographic imaging was performed 30 to 60 minutes later. See administered radiotracer and doses below. [facility] Date of service: 06/27/2023 7:30:00 AM Ordering Physician: XOCHILT KLEIN. Requesting Physician: Indication: Preop eval for noncard surg with intermediate risk and poor exercise tolerance Interpreting physician: John Morrison MD Previous Cardiovascular Interventions: Stress test at least 2 years ago Height: 165.00 cm BSA: 2.01 m? Weight: 88.00 kg BMI: 32.3 kg/m? Imaging Protocol Limitation Reason G.I. uptake and Breast attenuation. Exam Type: Rest Stress Radiopharm: Tc-99m Tetrofosmin Tc-99m Tetrofosmin Dosage(mCi): 13.4 34.6 Stress Agent: Regadenoson 0.4mg Supply provided from [facility] Resting Blood Press: 134/65 mmHg Image Quality The overall study imaging quality was deemed to be fair. The following technical issues were noted: G.I. uptake and Breast attenuation. FINDINGS: Left Ventricle Wall Motion: Stress IR:3D - All segments are normal. Rest IR:3D - Gated Stress FBP - Reversibility - Stress IR:3D Stress IR:3D Gated Stress FBP LVEF: 71 % ED Volume: 79 ml ES Volume: 23 ml TID: 0.95 Perfusion Findings Stress IR:3D - Summed Score=0 All segments demonstrate normal perfusion. Rest IR:3D - Summed Score=0 All segments demonstrate normal perfusion. Stress IR:3D Rest IR:3D Summed Score=0 Summed Score=0 LEFT VENTRICLE The left ventricle is normal in size. Left ventricular systolic function is normal. Right Ventricle The right ventricle is normal in size. Right ventricle systolic function is normal. Stress Test Findings: There is no scintigraphic evidence for inducible ischemia. There is no evidence of scarring. Small to moderate size, mild to moderate intensity fixed perfusion defect in the anterior wall with corresponding normal wall motion and thickening, most likely consistent with breast attenuation artifact. * * * Final * * * ---- Stress ECG Report: [facility] Date of service: 06/27/2023 7:30:00 AM Ordering physician: XOCHILT KLEIN student finance specialist: Cleopatra Walker Teaching Dietitian: Nayana Willams CEP Interpreting physician: John Morrison MD Patient name: MRS. JESSICA ASH Age: 78 years Gender: F Height: 165.00 cm BSA: 2.01 m? Weight: 88.00 kg BMI: 32.3 kg/m? Indication: Encounter for screening for cardiovascular disorders, Encounter for pre-procedural cardiovascular examination for non-cardiac surgery and Dyspnea on exertion Stress ECG Conclusion: Conclusion: Normal Comments: No EKG evidence of ischemia. Stress ECG Summary: The patient's resting heart rate was 47 bpm and blood pressure was 134/65 mmHg. The test was terminated due to end of protocol. Other symptoms during the test included chest discomfort, nausea and SOB. The maximum heart rate was 71 bpm, which is 49% of the predicted heart rate for age. Peak blood pressure was 146/69 mmHg. The double product achieved was [address]. Previous cardiovascular interventions: Stress test at least 2 years ago Medications: Last Used Lexapro, Levothyroxine, Lorazepam Resting ECG: Sinus Bradycardia and WNL Symptoms at rest: No symptoms P (more content not included)... Normal [facility] CT CHEST WO IVCONon 06-24-[address] CHEST WO IVCON * * *Final Report* * * DATE OF EXAM: Jun 24 2023 1:45PM [facility] 0541 - CT CHEST WO IVCON / PROCEDURE REASON: Carcinoma, lung, left (HCC) * * * * Physician Interpretation * * * * EXAMINATION: CHEST CT WITHOUT CONTRAST CLINICAL HISTORY: Lung carcinoma Technique: Spiral CT acquisition of the chest from the thoracic inlet to the upper abdomen without contrast. MQ: [id number]_6 CT Radiation dose: Integrated Dose-length product (DLP) for this visit = 413 mGy*cm CT Dose Reduction Employed: Automated exposure control(AEC) and iterative recon Comparison: CT scans of 11/17/2022 RESULT: Limitations: None. Lines, tubes, and devices: None. Lung parenchyma and airways: Semisolid and solid opacity within the left lung on image 52 measures 2.2 x 1.8 cm. Previously 1.5 x 1.3 cm at this level. A second lesion is seen on image 54 which measures 1.1 x 0.8 cm. This is new. This is solid. 4 mm nodule at the right lung base on image 97 is stable. The central airways are patent. Pleural space: No pleural effusion. No pleural thickening. Lower neck, lymph nodes, and mediastinum: The imaged thyroid gland is normal. Borderline mediastinal nodes measuring at or near 1 cm are stable. No definite developing lymphadenopathy in the supraclavicular, axillary, mediastinal, or hilar regions. Heart, pericardium, and thoracic vessels: The thoracic aorta and main pulmonary artery are normal in caliber. The cardiac chambers are normal in size. No coronary artery atherosclerotic calcifications are noted, although the study is not optimized for coronary assessment. No pericardial effusion or thickening. Bones and soft tissues: No destructive bone lesion. Chest wall is unremarkable. Degenerative changes throughout the spine. Mild superior wedging of L1 is stable. Upper abdomen: No abnormality in the imaged upper abdomen. County Library Director (topogram) images: No additional findings. IMPRESSION: Findings consistent with progression of disease in the chest as described. Professional Shopper: DOMINIQUE Transcribe Date/Time: Jun 28 2023 1:52P Dictated by : JUDI BALDERAS MD This examination was interpreted and the report reviewed and electronically signed by: JUDI BALDERAS MD on Jun 28 2023 2:01PM EST [id number] [facility] TONIAN Telephone (AGVASACC) JESSICA ASH ([id number]) 1945 F Date Time Provider Department 06/23/23 SHADE RILEY During your visit today, we recorded the following information about you: Theo Marsh LPN 06/23/2023 1:58 PM Signed Patient calling in and left message that she would like to talk to April Velasquez NP. Patient asking for a return call. Theo Marsh LPN June 23, 2023 1:58 PM Theo Marsh LPN 06/24/2023 8:54 AM Signed Patient states she was just returning April's call. Theo Marsh LPN June 24, 2023 8:53 AM Xochilt Klein APRN.DRIVER RECRUITER You 17 hours ago (3:20 PM) Can you please call her back and gather more information on what she needs. Thank you [place] Mendes APRN.TONIA 06/24/2023 2:00 PM Signed Called patient back to address any questions she may have. She reported she actually has no questions at present. Reviewed that she has stress test and GI visit with Dr. Bradshaw on 06/27/23. She reports that she now know that she has OR with Dr. Riley on 07/04, but was not aware of that until recently. I referenced the phone call that was made to her from our office on 06/09 with testing detail. Does not appear she has any PAT testing or COTTON EXPERT visit scheduled. Will request that be coordinated. [place] Mendes APRN.Jose Cruz Hernandez 06/24/2023 2:43 PM Signed Spoke with pt regarding presurgical labs and schedule office visit for presurgical instructions on 06/29/23 2pm. Allergies As of Date: 06/23/2023 Noted Allergy Reaction PROCHLORPERAZINE 07/27/2018 10 - Anaphylaxis ACETAMINOPHEN 01/23/2007 2 - Rash Comments: Other reaction(s): Rash ALBUTEROL 08/20/2022 14 - Other: See Comments Comments: heart racing. BP flucuating ALCOHOL 01/23/2007 all antibiotics [Other] 01/23/2007 all pain meds [Other] 01/23/2007 ASPIRIN 01/23/2007 12 - Shortness of Breath Comments: Other reaction(s): Shortness of breath BETADINE (POVIDONE-IODINE) 01/23/2007 CEPHALEXIN 07/27/2018 16 - Unknown Comments: Other reaction(s): Unknown CODEINE 07/27/2018 16 - Unknown Comments: Other reaction(s): Unknown COMPAZINE (PROCHLORPERAZINE EDISY*09/15/2018 10 - Anaphylaxis ct scan dye [Other] 01/23/2007 10 - Anaphylaxis DIPHENHYDRAMINE 07/27/2018 4 - Hives Comments: Other reaction(s): Hives DOXYCYCLINE 07/27/2018 16 - Unknown Comments: Other reaction(s): Unknown EGG 09/15/2018 16 - Unknown ERYTHROMYCIN BASE 07/27/2018 16 - Unknown Comments: Other reaction(s): Unknown HYDROMORPHONE 08/20/2022 16 - Unknown IBUPROFEN 07/27/2018 16 - Unknown Comments: Other reaction(s): Unknown KETOROLAC 08/20/2022 12 - Shortness of Breath LATEX 01/23/2007 LIDOCAINE 07/27/2018 7 - Swelling 9 - Itching Comments: Other reaction(s): Unknown MEPERIDINE 07/27/2018 16 - Unknown Comments: Other reaction(s): Unknown MILK 01/23/2007 MORPHINE 08/20/2022 16 - Unknown NAPROXEN 08/20/2022 16 - Unknown NSAIDS (NON-STEROIDAL ANTI-INFLAM*09/15/2018 10 - Anaphylaxis ONDANSETRON 08/20/2022 16 - Unknown PENICILLINS 07/27/2018 16 - Unknown Comments: Other reaction(s): Unknown SOAP 01/23/2007 SULFA (SULFONAMIDE ANTIBIOTICS) 08/20/2022 16 - Unknown TRAMADOL 06/01/2023 12 - Shortness of Breath vegetables [Other] 01/23/2007 WHEAT STARCH 01/23/2007 Date Reviewed: 06/01/2023 Reviewed by: Dianne Vela LPN - Fully Assessed Reason for Visit: Requests return call [Other] Prescriptions as of 06/24/2023 - blood sugar diagnostic (ONETOUCH ULTRA BLUE TEST STRIP MISC) USE TO TEST BLOOD SUGAR DAILY DX E11.9 - olopatadine (PATANOL) 0.1 % ophthalmic solution INSTILL 1 DROP INTO BOTH EYES TWICE DAILY NEEDED AT 6-8 HOUR INTERVALS. - levothyroxine (SYNTHROID) 50 mcg tablet Take 50 mcg by mouth. Two tablet at breakfast - escitalopram oxalate (LEXAPRO) 20 mg tablet Take 20 mg by mouth once daily. - EPINEPHrine (EPIPEN) 0.3 mg/0.3 mL auto-injector as needed - lorazepam (ATIVAN) 1 mg ORAL Tab Take 1 mg by mouth three times daily as needed. Problem List As Of Date 06/23/2023 Noted Resolved PALPITATIONS [R00.2] 01/23/2007 Unspecified hypothyroidism [E03.9] 01/23/2007 SHORTNESS OF BREATH [R06.02] 01/23/2007 OBESITY NOS [E66.9] 01/23/2007 Unspecified sleep apnea [G47.30] 01/23/2007 MYALGIA AND MYOSITIS NOS [HTR0902] 01/23/2007 Multiple allergies [Z88.9] 09/15/2018 Chronic bilateral thoracic back pain [M54.6, G8*09/15/2018 COVID-19 [U07.1] 08/20/2022 Acute gastritis [K29.00] 08/20/2022 Chest pain [R07.9] 08/20/2022 Chronic obstructive lung disease (HCC) [J44.9] 08/20/2022 Contusion of knee [S80.00XA] 08/20/2022 Diabetes mellitus (HCC) [E11.9] 08/20/2022 Generalized anxiety disorder [F41.1] 08/20/2022 Hypomagnesemia [E83.42] 08/20/2022 Injury of low back [S39.92XA] 08/20/2022 Mass of head [R22.0] 08/20/2022 Mitral valve prolapse [I34.1] 08/20/2022 Pre-syncope [R55] 08/20/2022 Vertigo (more content not included)... Normal [facility] CNPNon 06-22-2023 CNPN Telephone (AGPlaylore) JESSICA ASH ([id number]) 1945 F Date Time Provider Department 06/22/23 SHADE RILEY CHIOENID During your visit today, we recorded the following information about you: Jose Cruz Martinez 06/22/2023 9:[address] Henson ([employer]er) 06/14/23 office encounter. Report scanned into [facility] As of Date: 06/22/2023 Noted Allergy Reaction PROCHLORPERAZINE 07/27/2018 10 - Anaphylaxis ACETAMINOPHEN 01/23/2007 2 - Rash Comments: Other reaction(s): Rash ALBUTEROL 08/20/2022 14 - Other: See Comments Comments: heart racing. BP flucuating ALCOHOL 01/23/2007 all antibiotics [Other] 01/23/2007 all pain meds [Other] 01/23/2007 ASPIRIN 01/23/2007 12 - Shortness of Breath Comments: Other reaction(s): Shortness of breath BETADINE (POVIDONE-IODINE) 01/23/2007 CEPHALEXIN 07/27/2018 16 - Unknown Comments: Other reaction(s): Unknown CODEINE 07/27/2018 16 - Unknown Comments: Other reaction(s): Unknown COMPAZINE (PROCHLORPERAZINE EDISY*09/15/2018 10 - Anaphylaxis ct scan dye [Other] 01/23/2007 10 - Anaphylaxis DIPHENHYDRAMINE 07/27/2018 4 - Hives Comments: Other reaction(s): Hives DOXYCYCLINE 07/27/2018 16 - Unknown Comments: Other reaction(s): Unknown EGG 09/15/2018 16 - Unknown ERYTHROMYCIN BASE 07/27/2018 16 - Unknown Comments: Other reaction(s): Unknown HYDROMORPHONE 08/20/2022 16 - Unknown IBUPROFEN 07/27/2018 16 - Unknown Comments: Other reaction(s): Unknown KETOROLAC 08/20/2022 12 - Shortness of Breath LATEX 01/23/2007 LIDOCAINE 07/27/2018 7 - Swelling 9 - Itching Comments: Other reaction(s): Unknown MEPERIDINE 07/27/2018 16 - Unknown Comments: Other reaction(s): Unknown MILK 01/23/2007 MORPHINE 08/20/2022 16 - Unknown NAPROXEN 08/20/2022 16 - Unknown NSAIDS (NON-STEROIDAL ANTI-INFLAM*09/15/2018 10 - Anaphylaxis ONDANSETRON 08/20/2022 16 - Unknown PENICILLINS 07/27/2018 16 - Unknown Comments: Other reaction(s): Unknown SOAP 01/23/2007 SULFA (SULFONAMIDE ANTIBIOTICS) 08/20/2022 16 - Unknown TRAMADOL 06/01/2023 12 - Shortness of Breath vegetables [Other] 01/23/2007 WHEAT STARCH 01/23/2007 Date Reviewed: 06/01/2023 Reviewed by: Dianne Vela LPN - Fully Assessed Reason for Visit: Received Outside Medical Records [[id number]] Prescriptions as of 06/22/2023 - blood sugar diagnostic (COINPLUSTOUCH ULTRA BLUE TEST STRIP [facility]) USE TO TEST BLOOD SUGAR DAILY DX E11.9 - olopatadine (PATANOL) 0.1 % ophthalmic solution INSTILL 1 DROP INTO BOTH EYES TWICE DAILY NEEDED AT 6-8 HOUR INTERVALS. - levothyroxine (SYNTHROID) 50 mcg tablet Take 50 mcg by mouth. Two tablet at breakfast - escitalopram oxalate (LEXAPRO) 20 mg tablet Take 20 mg by mouth once daily. - EPINEPHrine (EPIPEN) 0.3 mg/0.3 mL auto-injector as needed - lorazepam (ATIVAN) 1 mg ORAL Tab Take 1 mg by mouth three times daily as needed. Problem List As Of Date 06/22/2023 Noted Resolved PALPITATIONS [R00.2] 01/23/2007 Unspecified hypothyroidism [E03.9] 01/23/2007 SHORTNESS OF BREATH [R06.02] 01/23/2007 OBESITY NOS [E66.9] 01/23/2007 Unspecified sleep apnea [G47.30] 01/23/2007 MYALGIA AND MYOSITIS NOS [[id number]] 01/23/2007 Multiple allergies [Z88.9] 09/15/2018 Chronic bilateral thoracic back pain [M54.6, G8*09/15/2018 COVID-19 [U07.1] 08/20/2022 Acute gastritis [K29.00] 08/20/2022 Chest pain [R07.9] 08/20/2022 Chronic obstructive lung disease (HCC) [J44.9] 08/20/2022 Contusion of knee [S80.00XA] 08/20/2022 Diabetes mellitus (HCC) [E11.9] 08/20/2022 Generalized anxiety disorder [F41.1] 08/20/2022 Hypomagnesemia [E83.42] 08/20/2022 Injury of low back [S39.92XA] 08/20/2022 Mass of head [R22.0] 08/20/2022 Mitral valve prolapse [I34.1] 08/20/2022 Pre-syncope [R55] 08/20/2022 Vertigo [R42] 08/20/2022 Encounter Status:Closed by JOSE CRUZ MARTINEZ on 06/22/23 [facility] CNPN Telephone (AGVASACC) JESSICA ASH ([id number]) 1945 F Date Time Provider Department 06/22/23 SHADE RILEY AGVASENID During your visit today, we recorded the following information about you: Theo Marsh LPN 06/22/2023 10:45 AM Signed Patient calling in and left message that she needs to speak with Dr. Riley's Nurse. Theo Marsh LPN June 22, 2023 10:45 AM April Velasquez APRN.DRIVER RECRUITER 06/22/2023 11:53 AM Addendum Reviewed TE from COTTON EXPERT yesterday stating, TuesdayJune 17, Dr. Ramirez in [place], GI in [facility] was going to do an upper endoscopy at [facility]. Due to allergies, anesthesiologist cancelled the procedure, recommended that that the procedure be done at a hospital with ICU capability. Pt states she will not continue to follow with Dr. Ramirez. She has followed with Dr. Murphy in the past, and she was supposed to have a scope three months ago, but this was delayed 2/2 the CA. She has the heart stress test next week. Case reviewed with Dr. Riley. Records reviewed. He had prefefrred endoscopy to be done prior to OR due to There is hypermetabolsim associated with the distal esophagus with SUV 6.8 (felt to be inflammatory). On PET scan 04/15/23. Last dedicated CT chest was from 11/[address] non contrast chest and upper endoscopy prior to any thoracic surgery. Will explore possibility of performing endoscopy at time or thoracic surgery. GI to discuss with anesthesia regarding potential plan. Returned call to patient this morning who states she heard from Dr. Murphy's office who told her ?she doesn't need endoscopy vs they won't do endoscopy but rather they recommend she get on antianxiety medication from her PCP. Patient states Dr. Murphy's office told her CT surgery will do the endoscopy prior to lung surgery. Let her know plans for possibility of endoscopy at time of thoracic surgery of which GI and anesthesia to coordinate potential plan. Though appears Dr. Miller is with [facility], and Dr. Murphy is with [facility] so patient would need GI at [facility] if coordination to happen during surgery by Dr. Riley. Patient scheduled for stress test next week 06/27/23. Called Dr. Murphy's office and left at [phone] for clarification regarding their plan/recommendation for patient. Will review this with Dr. Riley and update if any changes. Addendum 06/22/23 at 11:48 AM Discussed the above with Dr. Riley who states he discussed patient's case with Dr. Bradshaw who is willing to try getting patient in for endoscopy. Called patient and notified her of this. Placing order for referral. April Velasquez APRN.DRIVER RECRUITER 06/22/2023 11:53 AM Signed Addended by: APRIL VELASQUEZ on: 06/22/2023 11:53 AM Modules accepted: Orders Allergies As of Date: 06/22/2023 Noted Allergy Reaction PROCHLORPERAZINE 07/27/2018 10 - Anaphylaxis ACETAMINOPHEN 01/23/2007 2 - Rash Comments: Other reaction(s): Rash ALBUTEROL 08/20/2022 14 - Other: See Comments Comments: heart racing. BP flucuating ALCOHOL 01/23/2007 all antibiotics [Other] 01/23/2007 all pain meds [Other] 01/23/2007 ASPIRIN 01/23/2007 12 - Shortness of Breath Comments: Other reaction(s): Shortness of breath BETADINE (POVIDONE-IODINE) 01/23/2007 CEPHALEXIN 07/27/2018 16 - Unknown Comments: Other reaction(s): Unknown CODEINE 07/27/2018 16 - Unknown Comments: Other reaction(s): Unknown COMPAZINE (PROCHLORPERAZINE EDISY*09/15/2018 10 - Anaphylaxis ct scan dye [Other] 01/23/2007 10 - Anaphylaxis DIPHENHYDRAMINE 07/27/2018 4 - Hives Comments: Other reaction(s): Hives DOXYCYCLINE 07/27/2018 16 - Unknown Comments: Other reaction(s): Unknown EGG 09/15/2018 16 - Unknown ERYTHROMYCIN BASE 07/27/2018 16 - Unknown Comments: Other reaction(s): Unknown HYDROMORPHONE 08/20/2022 16 - Unknown IBUPROFEN 07/27/2018 16 - Unknown Comments: Other reaction(s): Unknown KETOROLAC 08/20/2022 12 - Shortness of Breath LATEX 01/23/2007 LIDOCAINE 07/27/2018 7 - Swelling 9 - Itching Comments: Other reaction(s): Unknown MEPERIDINE 07/27/2018 16 - Unknown Comments: Other reaction(s): Unknown MILK 01/23/2007 MORPHINE 08/20/2022 16 - Unknown NAPROXEN 08/20/2022 16 - Unknown NSAIDS (NON-STEROIDAL ANTI-INFLAM*09/15/2018 10 - Anaphylaxis ONDANSETRON 08/20/2022 16 - Unknown PENICILLINS 07/27/2018 16 - Unknown Comments: Other reaction(s): Unknown SOAP 01/23/2007 SULFA (SULFONAMIDE ANTIBIOTICS) 08/20/2022 16 - Unknown TRAMADOL 06/01/2023 12 - Shortness of Breath vegetables [Other] 01/23/2007 WHEAT STARCH 01/23/2007 Date Reviewed: 06/01/2023 Reviewed by: Dianne Vela LPN - Fully Assessed Reason for Visit: Request for return call [Other] Primary Visit Diagnosis:Abnormal positron emission tomography (PET) scan [R94.8] Order(s):CONSULT TO GASTROENTEROLOGY [9010] Order #: [id number]: 1 FUTURE Prescripti (more content not included)... Normal [facility] CNPN Telephone (AGVASACC) JESSICA ASH ([id number]) 1945 F Date Time Provider Department 06/22/23 APRIL VELASQUEZ During your visit today, we recorded the following information about you: April Velasquez APRN.CNP 06/22/2023 1:49 PM Signed ----- Message from Estelle Chatman sent at 06/22/2023 1:42 PM EDT ----- Anthony-Gm #[phone], from [place], asking for a return call. April Velasquez APRN.CNP 06/22/2023 1:52 PM Signed See my TE from earlier today. Plan is for pt to see GI Dr. Bradshaw so no need to call [place] [facility] back. Allergies As of Date: 06/22/2023 Noted Allergy Reaction PROCHLORPERAZINE 07/27/2018 10 - Anaphylaxis ACETAMINOPHEN 01/23/2007 2 - Rash Comments: Other reaction(s): Rash ALBUTEROL 08/20/2022 14 - Other: See Comments Comments: heart racing. BP flucuating ALCOHOL 01/23/2007 all antibiotics [Other] 01/23/2007 all pain meds [Other] 01/23/2007 ASPIRIN 01/23/2007 12 - Shortness of Breath Comments: Other reaction(s): Shortness of breath BETADINE (POVIDONE-IODINE) 01/23/2007 CEPHALEXIN 07/27/2018 16 - Unknown Comments: Other reaction(s): Unknown CODEINE 07/27/2018 16 - Unknown Comments: Other reaction(s): Unknown COMPAZINE (PROCHLORPERAZINE EDISY*09/15/2018 10 - Anaphylaxis ct scan dye [Other] 01/23/2007 10 - Anaphylaxis DIPHENHYDRAMINE 07/27/2018 4 - Hives Comments: Other reaction(s): Hives DOXYCYCLINE 07/27/2018 16 - Unknown Comments: Other reaction(s): Unknown EGG 09/15/2018 16 - Unknown ERYTHROMYCIN BASE 07/27/2018 16 - Unknown Comments: Other reaction(s): Unknown HYDROMORPHONE 08/20/2022 16 - Unknown IBUPROFEN 07/27/2018 16 - Unknown Comments: Other reaction(s): Unknown KETOROLAC 08/20/2022 12 - Shortness of Breath LATEX 01/23/2007 LIDOCAINE 07/27/2018 7 - Swelling 9 - Itching Comments: Other reaction(s): Unknown MEPERIDINE 07/27/2018 16 - Unknown Comments: Other reaction(s): Unknown MILK 01/23/2007 MORPHINE 08/20/2022 16 - Unknown NAPROXEN 08/20/2022 16 - Unknown NSAIDS (NON-STEROIDAL ANTI-INFLAM*09/15/2018 10 - Anaphylaxis ONDANSETRON 08/20/2022 16 - Unknown PENICILLINS 07/27/2018 16 - Unknown Comments: Other reaction(s): Unknown SOAP 01/23/2007 SULFA (SULFONAMIDE ANTIBIOTICS) 08/20/2022 16 - Unknown TRAMADOL 06/01/2023 12 - Shortness of Breath vegetables [Other] 01/23/2007 WHEAT STARCH 01/23/2007 Date Reviewed: 06/01/2023 Reviewed by: Dianne Vela LPN - Fully Assessed Prescriptions as of 06/22/2023 - blood sugar diagnostic (ONETOUCH ULTRA BLUE TEST STRIP MIS) USE TO TEST BLOOD SUGAR DAILY DX E11.9 - olopatadine (PATANOL) 0.1 % ophthalmic solution INSTILL 1 DROP INTO BOTH EYES TWICE DAILY NEEDED AT 6-8 HOUR INTERVALS. - levothyroxine (SYNTHROID) 50 mcg tablet Take 50 mcg by mouth. Two tablet at breakfast - escitalopram oxalate (LEXAPRO) 20 mg tablet Take 20 mg by mouth once daily. - EPINEPHrine (EPIPEN) 0.3 mg/0.3 mL auto-injector as needed - lorazepam (ATIVAN) 1 mg ORAL Tab Take 1 mg by mouth three times daily as needed. Problem List As Of Date 06/22/2023 Noted Resolved PALPITATIONS [R00.2] 01/23/2007 Unspecified hypothyroidism [E03.9] 01/23/2007 SHORTNESS OF BREATH [R06.02] 01/23/2007 OBESITY NOS [E66.9] 01/23/2007 Unspecified sleep apnea [G47.30] 01/23/2007 MYALGIA AND MYOSITIS NOS [[id number]] 01/23/2007 Multiple allergies [Z88.9] 09/15/2018 Chronic bilateral thoracic back pain [M54.6, G8*09/15/2018 COVID-19 [U07.1] 08/20/2022 Acute gastritis [K29.00] 08/20/2022 Chest pain [R07.9] 08/20/2022 Chronic obstructive lung disease (HCC) [J44.9] 08/20/2022 Contusion of knee [S80.00XA] 08/20/2022 Diabetes mellitus (HCC) [E11.9] 08/20/2022 Generalized anxiety disorder [F41.1] 08/20/2022 Hypomagnesemia [E83.42] 08/20/2022 Injury of low back [S39.92XA] 08/20/2022 Mass of head [R22.0] 08/20/2022 Mitral valve prolapse [I34.1] 08/20/2022 Pre-syncope [R55] 08/20/2022 Vertigo [R42] 08/20/2022 Encounter Status:Closed by APRIL VELASQUEZ on 06/22/23 [facility] CNPN Telephone (AGVASACC) JESSICA [id number]) 1945 F Date Time Provider Department 06/22/23 SHADE RILEY During your visit today, we recorded the following information about you: Jose Cruz Martinez Matthias 06/22/2023 9:33 AM Signed Left detailed message regarding future appt CT Chest wo contrast 06/24/23 1:20pm [place] [facility] Allergies As of Date: 06/22/2023 Noted Allergy Reaction PROCHLORPERAZINE 07/27/2018 10 - Anaphylaxis ACETAMINOPHEN 01/23/2007 2 - Rash Comments: Other reaction(s): Rash ALBUTEROL 08/20/2022 14 - Other: See Comments Comments: heart racing. BP flucuating ALCOHOL 01/23/2007 all antibiotics [Other] 01/23/2007 all pain meds [Other] 01/23/2007 ASPIRIN 01/23/2007 12 - Shortness of Breath Comments: Other reaction(s): Shortness of breath BETADINE (POVIDONE-IODINE) 01/23/2007 CEPHALEXIN 07/27/2018 16 - Unknown Comments: Other reaction(s): Unknown CODEINE 07/27/2018 16 - Unknown Comments: Other reaction(s): Unknown COMPAZINE (PROCHLORPERAZINE EDISY*09/15/2018 10 - Anaphylaxis ct scan dye [Other] 01/23/2007 10 - Anaphylaxis DIPHENHYDRAMINE 07/27/2018 4 - Hives Comments: Other reaction(s): Hives DOXYCYCLINE 07/27/2018 16 - Unknown Comments: Other reaction(s): Unknown EGG 09/15/2018 16 - Unknown ERYTHROMYCIN BASE 07/27/2018 16 - Unknown Comments: Other reaction(s): Unknown HYDROMORPHONE 08/20/2022 16 - Unknown IBUPROFEN 07/27/2018 16 - Unknown Comments: Other reaction(s): Unknown KETOROLAC 08/20/2022 12 - Shortness of Breath LATEX 01/23/2007 LIDOCAINE 07/27/2018 7 - Swelling 9 - Itching Comments: Other reaction(s): Unknown MEPERIDINE 07/27/2018 16 - Unknown Comments: Other reaction(s): Unknown MILK 01/23/2007 MORPHINE 08/20/2022 16 - Unknown NAPROXEN 08/20/2022 16 - Unknown NSAIDS (NON-STEROIDAL ANTI-INFLAM*09/15/2018 10 - Anaphylaxis ONDANSETRON 08/20/2022 16 - Unknown PENICILLINS 07/27/2018 16 - Unknown Comments: Other reaction(s): Unknown SOAP 01/23/2007 SULFA (SULFONAMIDE ANTIBIOTICS) 08/20/2022 16 - Unknown TRAMADOL 06/01/2023 12 - Shortness of Breath vegetables [Other] 01/23/2007 WHEAT STARCH 01/23/2007 Date Reviewed: 06/01/2023 Reviewed by: Dianne Vela LPN - Fully Assessed Reason for Visit: Future Appointment [256] Prescriptions as of 06/22/2023 - blood sugar diagnostic (COINPLUSTOUCH ULTRA BLUE TEST STRIP [facility] [place]) USE TO TEST BLOOD SUGAR DAILY DX E11.9 - olopatadine (PATANOL) 0.1 % ophthalmic solution INSTILL 1 DROP INTO BOTH EYES TWICE DAILY NEEDED AT 6-8 HOUR INTERVALS. - levothyroxine (SYNTHROID) 50 mcg tablet Take 50 mcg by mouth. Two tablet at breakfast - escitalopram oxalate (LEXAPRO) 20 mg tablet Take 20 mg by mouth once daily. - EPINEPHrine (EPIPEN) 0.3 mg/0.3 mL auto-injector as needed - lorazepam (ATIVAN) 1 mg ORAL Tab Take 1 mg by mouth three times daily as needed. Problem List As Of Date 06/22/2023 Noted Resolved PALPITATIONS [R00.2] 01/23/2007 Unspecified hypothyroidism [E03.9] 01/23/2007 SHORTNESS OF BREATH [R06.02] 01/23/2007 OBESITY NOS [E66.9] 01/23/2007 Unspecified sleep apnea [G47.30] 01/23/2007 MYALGIA AND MYOSITIS NOS [[id number]] 01/23/2007 Multiple allergies [Z88.9] 09/15/2018 Chronic bilateral thoracic back pain [M54.6, G8*09/15/2018 COVID-19 [U07.1] 08/20/2022 Acute gastritis [K29.00] 08/20/2022 Chest pain [R07.9] 08/20/2022 Chronic obstructive lung disease (HCC) [J44.9] 08/20/2022 Contusion of knee [S80.00XA] 08/20/2022 Diabetes mellitus (HCC) [E11.9] 08/20/2022 Generalized anxiety disorder [F41.1] 08/20/2022 Hypomagnesemia [E83.42] 08/20/2022 Injury of low back [S39.92XA] 08/20/2022 Mass of head [R22.0] 08/20/2022 Mitral valve prolapse [I34.1] 08/20/2022 Pre-syncope [R55] 08/20/2022 Vertigo [R42] 08/20/2022 Encounter Status:Closed by JOSE CRUZ MARTINEZ on 06/22/23 Normal [facility] CNPNon 06-21-2023 CNPN Telephone (AKANES) JESSICA ASH ([id number]) 1945 F Date Time Provider Department 06/21/23 SURINDER MENDOZA During your visit today, we recorded the following information about you: Surinder Mendoza MD 06/21/2023 10:00 AM Signed Reviewed medication allergies with patient as well as previous experience with anesthesia medications. Discussed following recommendations with patient, patient expressed understanding and agreement with plan. -Avoid propofol given egg allergy: Plan to induce and maintain general anesthesia with other agents (patient has tolerated volatile anesthetics, etomidate, midazolam, fentanyl AND paralytics previously) -Multiple narcotics allergies: Patient has tolerated fentanyl previously, plan to use high dose fentanyl and multimodal analgesia plan for intra-op and PACU pain control -Avoid local anesthetics -Avoid diphenhydramine: plan to use alternative agents for PONV prophylaxis -Defer antibiotic selection to surgical team Allergies As of Date: 06/21/2023 Noted Allergy Reaction PROCHLORPERAZINE 07/27/2018 10 - Anaphylaxis ACETAMINOPHEN 01/23/2007 2 - Rash Comments: Other reaction(s): Rash ALBUTEROL 08/20/2022 14 - Other: See Comments Comments: heart racing. BP flucuating ALCOHOL 01/23/2007 all antibiotics [Other] 01/23/2007 all pain meds [Other] 01/23/2007 ASPIRIN 01/23/2007 12 - Shortness of Breath Comments: Other reaction(s): Shortness of breath BETADINE (POVIDONE-IODINE) 01/23/2007 CEPHALEXIN 07/27/2018 16 - Unknown Comments: Other reaction(s): Unknown CODEINE 07/27/2018 16 - Unknown Comments: Other reaction(s): Unknown COMPAZINE (PROCHLORPERAZINE EDISY*09/15/2018 10 - Anaphylaxis ct scan dye [Other] 01/23/2007 10 - Anaphylaxis DIPHENHYDRAMINE 07/27/2018 4 - Hives Comments: Other reaction(s): Hives DOXYCYCLINE 07/27/2018 16 - Unknown Comments: Other reaction(s): Unknown EGG 09/15/2018 16 - Unknown ERYTHROMYCIN BASE 07/27/2018 16 - Unknown Comments: Other reaction(s): Unknown HYDROMORPHONE 08/20/2022 16 - Unknown IBUPROFEN 07/27/2018 16 - Unknown Comments: Other reaction(s): Unknown KETOROLAC 08/20/2022 12 - Shortness of Breath LATEX 01/23/2007 LIDOCAINE 07/27/2018 7 - Swelling 9 - Itching Comments: Other reaction(s): Unknown MEPERIDINE 07/27/2018 16 - Unknown Comments: Other reaction(s): Unknown MILK 01/23/2007 MORPHINE 08/20/2022 16 - Unknown NAPROXEN 08/20/2022 16 - Unknown NSAIDS (NON-STEROIDAL ANTI-INFLAM*09/15/2018 10 - Anaphylaxis ONDANSETRON 08/20/2022 16 - Unknown PENICILLINS 07/27/2018 16 - Unknown Comments: Other reaction(s): Unknown SOAP 01/23/2007 SULFA (SULFONAMIDE ANTIBIOTICS) 08/20/2022 16 - Unknown TRAMADOL 06/01/2023 12 - Shortness of Breath vegetables [Other] 01/23/2007 WHEAT STARCH 01/23/2007 Date Reviewed: 06/01/2023 Reviewed by: Dianne Vela LPN - Fully Assessed Reason for Visit: Allergies [4] Cmt: Anesthesia Consult requested by Dr. Riley regarding anesthesia plan in setting of multiple relevant medication allergies Prescriptions as of 06/21/2023 - blood sugar diagnostic (ONETOUCH ULTRA BLUE TEST STRIP [facility] USE TO TEST BLOOD SUGAR DAILY DX E11.9 - olopatadine (PATANOL) 0.1 % ophthalmic solution INSTILL 1 DROP INTO BOTH EYES TWICE DAILY NEEDED AT 6-8 HOUR INTERVALS. - levothyroxine (SYNTHROID) 50 mcg tablet Take 50 mcg by mouth. Two tablet at breakfast - escitalopram oxalate (LEXAPRO) 20 mg tablet Take 20 mg by mouth once daily. - EPINEPHrine (EPIPEN) 0.3 mg/0.3 mL auto-injector as needed - lorazepam (ATIVAN) 1 mg ORAL Tab Take 1 mg by mouth three times daily as needed. Problem List As Of Date 06/21/2023 Noted Resolved PALPITATIONS [R00.2] 01/23/2007 Unspecified hypothyroidism [E03.9] 01/23/2007 SHORTNESS OF BREATH [R06.02] 01/23/2007 OBESITY NOS [E66.9] 01/23/2007 Unspecified sleep apnea [G47.30] 01/23/2007 MYALGIA AND MYOSITIS NOS [[id number]] 01/23/2007 Multiple allergies [Z88.9] 09/15/2018 Chronic bilateral thoracic back pain [M54.6, G8*09/15/2018 COVID-19 [U07.1] 08/20/2022 Acute gastritis [K29.00] 08/20/2022 Chest pain [R07.9] 08/20/2022 Chronic obstructive lung disease (HCC) [J44.9] 08/20/2022 Contusion of knee [S80.00XA] 08/20/2022 Diabetes mellitus (HCC) [E11.9] 08/20/2022 Generalized anxiety disorder [F41.1] 08/20/2022 Hypomagnesemia [E83.42] 08/20/2022 Injury of low back [S39.92XA] 08/20/2022 Mass of head [R22.0] 08/20/2022 Mitral valve prolapse [I34.1] 08/20/2022 Pre-syncope [R55] 08/20/2022 Vertigo [R42] 08/20/2022 Encounter Status:Closed by SURINDER MENDOZA on 06/21/23 [facility] CNPN Telephone (AGVASACC) JESSICA ASH ([id number]) 1945 F Date Time Provider Department 06/21/23 SHADE RILEY AGRENETTAACC During your visit today, we recorded the following information about you: Dianne Vela LPN 06/21/2023 10:05 AM Signed Jessica Aquino called AND left voice message asking to speak with Dr. Riley's COT[employer] EXPERT regarding her discussion with Anesthesiologist AND her having a procedure that Dr. Riley wants her to have. She can be reached @ [phone]. DANNY Verduzco Melissa A, APRN.DRIVER RECRUITER 06/23/2023 10:51 AM Addendum TuesdayJune 17, Dr. Ramirez in [place], GI in [facility] was going to do an upper endoscopy at [facility]. Due to allergies, anesthesiologist cancelled the procedure, recommended that that the procedure be done at a hospital with ICU capability. Pt states she will not continue to follow with Dr. Ramirez. She has followed with Dr. Murphy in the past, and she was supposed to have a scope three months ago, but this was delayed 2/2 the CA. She has the heart stress test next week. Case reviewed with Dr. Riley. Records reviewed. He had preferred endoscopy to be done prior to OR due to hypermetabolsim associated with the distal esophagus with SUV 6.8 (felt to be inflammatory) on PET scan 04/15/23. Last dedicated CT chest was from 11/[address] non contrast chest and upper endoscopy prior to any thoracic surgery. This is now ordered Will explore possibility of performing endoscopy at time or thoracic surgery. Dr. Riley discussed with GI who will be in discussion with anesthesia regarding potential plan. Our ticket scheduler informed of CT chest order and will call pt to let her know about this required test and possibility of endoscopy same day as lung surgery. [place] Mendes SHASHA.DRIVER RECRUITER Allergies As of Date: 06/21/2023 Noted Allergy Reaction PROCHLORPERAZINE 07/27/2018 10 - Anaphylaxis ACETAMINOPHEN 01/23/2007 2 - Rash Comments: Other reaction(s): Rash ALBUTEROL 08/20/2022 14 - Other: See Comments Comments: heart racing. BP flucuating ALCOHOL 01/23/2007 all antibiotics [Other] 01/23/2007 all pain meds [Other] 01/23/2007 ASPIRIN 01/23/2007 12 - Shortness of Breath Comments: Other reaction(s): Shortness of breath BETADINE (POVIDONE-IODINE) 01/23/2007 CEPHALEXIN 07/27/2018 16 - Unknown Comments: Other reaction(s): Unknown CODEINE 07/27/2018 16 - Unknown Comments: Other reaction(s): Unknown COMPAZINE (PROCHLORPERAZINE EDISY*09/15/2018 10 - Anaphylaxis ct scan dye [Other] 01/23/2007 10 - Anaphylaxis DIPHENHYDRAMINE 07/27/2018 4 - Hives Comments: Other reaction(s): Hives DOXYCYCLINE 07/27/2018 16 - Unknown Comments: Other reaction(s): Unknown EGG 09/15/2018 16 - Unknown ERYTHROMYCIN BASE 07/27/2018 16 - Unknown Comments: Other reaction(s): Unknown HYDROMORPHONE 08/20/2022 16 - Unknown IBUPROFEN 07/27/2018 16 - Unknown Comments: Other reaction(s): Unknown KETOROLAC 08/20/2022 12 - Shortness of Breath LATEX 01/23/2007 LIDOCAINE 07/27/2018 7 - Swelling 9 - Itching Comments: Other reaction(s): Unknown MEPERIDINE 07/27/2018 16 - Unknown Comments: Other reaction(s): Unknown MILK 01/23/2007 MORPHINE 08/20/2022 16 - Unknown NAPROXEN 08/20/2022 16 - Unknown NSAIDS (NON-STEROIDAL ANTI-INFLAM*09/15/2018 10 - Anaphylaxis ONDANSETRON 08/20/2022 16 - Unknown PENICILLINS 07/27/2018 16 - Unknown Comments: Other reaction(s): Unknown SOAP 01/23/2007 SULFA (SULFONAMIDE ANTIBIOTICS) 08/20/2022 16 - Unknown TRAMADOL 06/01/2023 12 - Shortness of Breath vegetables [Other] 01/23/2007 WHEAT STARCH 01/23/2007 Date Reviewed: 06/01/2023 Reviewed by: Dianne Vela LPN - Fully Assessed Reason for Visit: Patient Question [1477] Primary Visit Diagnosis:Carcinoma, lung, left (HCC) [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 - levothyroxine (SYNTHROID) 50 mcg tablet Take 50 mcg by mouth. Two tablet at breakfast - escitalopram oxalate (LEXAPRO) 20 mg tablet Take 20 mg by mouth once daily. - EPINEPHrine (EPIPEN) 0.3 mg/0.3 mL auto-injector as needed - lorazepam (ATIVAN) 1 mg ORAL Tab Take 1 mg by mouth three times daily as needed. Problem List As Of Date 06/21/2023 Noted Resolved PALPITATIONS [R00.2] 01/23/2007 Unspecified hypothyroidism [E03.9] 01/23/2007 SHORTNESS OF BREATH [R06.02] 01/23/2007 OBESITY NOS [E66.9] 01/23/2007 Unspecified sleep apnea [G47.30] 01/23/2007 MYALGIA AND MYOSITIS NOS [[id number]] 01/23/2007 Multiple allergies [Z88.9] 09/15/2018 Chronic bilateral thoracic back pain [M54.6, G8*09/15/2018 COVID-19 [U07.1] 08/20/2022 Acute gastrit (more content not included)... Normal [facility] CNPN Telephone (LANETTE) JESSICA ASH ([id number]) 1945 F Date Time Provider Department 06/21/23 SURINDER MENDOZA During your visit today, we recorded the following information about you: Allergies As of Date: 06/21/2023 Noted Allergy Reaction PROCHLORPERAZINE 07/27/2018 10 - Anaphylaxis ACETAMINOPHEN 01/23/2007 2 - Rash Comments: Other reaction(s): Rash ALBUTEROL 08/20/2022 14 - Other: See Comments Comments: heart racing. BP flucuating ALCOHOL 01/23/2007 all antibiotics [Other] 01/23/2007 all pain meds [Other] 01/23/2007 ASPIRIN 01/23/2007 12 - Shortness of Breath Comments: Other reaction(s): Shortness of breath BETADINE (POVIDONE-IODINE) 01/23/2007 CEPHALEXIN 07/27/2018 16 - Unknown Comments: Other reaction(s): Unknown CODEINE 07/27/2018 16 - Unknown Comments: Other reaction(s): Unknown COMPAZINE (PROCHLORPERAZINE EDISY*09/15/2018 10 - Anaphylaxis ct scan dye [Other] 01/23/2007 10 - Anaphylaxis DIPHENHYDRAMINE 07/27/2018 4 - Hives Comments: Other reaction(s): Hives DOXYCYCLINE 07/27/2018 16 - Unknown Comments: Other reaction(s): Unknown EGG 09/15/2018 16 - Unknown ERYTHROMYCIN BASE 07/27/2018 16 - Unknown Comments: Other reaction(s): Unknown HYDROMORPHONE 08/20/2022 16 - Unknown IBUPROFEN 07/27/2018 16 - Unknown Comments: Other reaction(s): Unknown KETOROLAC 08/20/2022 12 - Shortness of Breath LATEX 01/23/2007 LIDOCAINE 07/27/2018 7 - Swelling 9 - Itching Comments: Other reaction(s): Unknown MEPERIDINE 07/27/2018 16 - Unknown Comments: Other reaction(s): Unknown MILK 01/23/2007 MORPHINE 08/20/2022 16 - Unknown NAPROXEN 08/20/2022 16 - Unknown NSAIDS (NON-STEROIDAL ANTI-INFLAM*09/15/2018 10 - Anaphylaxis ONDANSETRON 08/20/2022 16 - Unknown PENICILLINS 07/27/2018 16 - Unknown Comments: Other reaction(s): Unknown SOAP 01/23/2007 SULFA (SULFONAMIDE ANTIBIOTICS) 08/20/2022 16 - Unknown TRAMADOL 06/01/2023 12 - Shortness of Breath vegetables [Other] 01/23/2007 WHEAT STARCH 01/23/2007 Date Reviewed: 06/01/2023 Reviewed by: Dianne Vela LPN - Fully Assessed Prescriptions as of 06/21/2023 - blood sugar diagnostic (ONETOUCH ULTRA BLUE TEST STRIP [facility]) USE TO TEST BLOOD SUGAR DAILY DX E11.9 - olopatadine (PATANOL) 0.1 % ophthalmic solution INSTILL 1 DROP INTO BOTH EYES TWICE DAILY NEEDED AT 6-8 HOUR INTERVALS. - levothyroxine (SYNTHROID) 50 mcg tablet Take 50 mcg by mouth. Two tablet at breakfast - escitalopram oxalate (LEXAPRO) 20 mg tablet Take 20 mg by mouth once daily. - EPINEPHrine (EPIPEN) 0.3 mg/0.3 mL auto-injector as needed - lorazepam (ATIVAN) 1 mg ORAL Tab Take 1 mg by mouth three times daily as needed. Problem List As Of Date 06/21/2023 Noted Resolved PALPITATIONS [R00.2] 01/23/2007 Unspecified hypothyroidism [E03.9] 01/23/2007 SHORTNESS OF BREATH [R06.02] 01/23/2007 OBESITY NOS [E66.9] 01/23/2007 Unspecified sleep apnea [G47.30] 01/23/2007 MYALGIA AND MYOSITIS NOS [[id number]] 01/23/2007 Multiple allergies [Z88.9] 09/15/2018 Chronic bilateral thoracic back pain [M54.6, G8*09/15/2018 COVID-19 [U07.1] 08/20/2022 Acute gastritis [K29.00] 08/20/2022 Chest pain [R07.9] 08/20/2022 Chronic obstructive lung disease (HCC) [J44.9] 08/20/2022 Contusion of knee [S80.00XA] 08/20/2022 Diabetes mellitus (HCC) [E11.9] 08/20/2022 Generalized anxiety disorder [F41.1] 08/20/2022 Hypomagnesemia [E83.42] 08/20/2022 Injury of low back [S39.92XA] 08/20/2022 Mass of head [R22.0] 08/20/2022 Mitral valve prolapse [I34.1] 08/20/2022 Pre-syncope [R55] 08/20/2022 Vertigo [R42] 08/20/2022 Encounter Status:Closed by DETTLSURINDER MORALES on 06/21/23 [facility] 36on 06-16-2023 36 I called pt and provided pt with medications given by anesthesia during her EBUS on 04/28/2023. Informed pt that due to the documentation not being from this office, we are unable to fax documentation to the provider requested, however we can provide her the list of medications given and she can provide them to the provider. If she would like a copy of the anesthesia, she is able to contact medical records and obtain a copy. Pt voiced understanding and has no questions or concerns at this time. Pt expressed gratitude for being able to provide this information to her at this time. [facility] 36 I called pt and provided pt with medications given by anesthesia during her EBUS on 04/28/2023. Informed pt that due to the documentation not being from this office, we are unable to fax documentation to the provider requested, however we can provide her the list of medications given and she can provide them to the provider. If she would like a copy of the anesthesia, she is able to contact medical records and obtain a copy. Pt voiced understanding and has no questions or concerns at this time. Pt expressed gratitude for being able to provide this information to her at this time. [facility] 36 S: Patient spoke osman lundberg [facility] nurse regarding medication question. B: Onset of symptoms/concern see TE 06/15/2023. A: Patient requesting information regarding what medications were used during her bronchoscopy, states she has a lot of allergies and is having a procedure tomorrow morning. Patient states fax number is [phone]. R: Called office back line and spoke with Shell, she states they are working on patient's request and will follow up with patient. Patient made aware that office will follow up with her, she verbalized understanding. No further needs at this time. Patient instructed to call back with new or worsening symptoms. Reason for Disposition Nursing judgment Protocols used: Information Only Call - No [id number] Normal [facility] CNPMary Kate 06-15-2023 CNPN Telephone (AGVASACC) JESSICA ASH ([id number]) 1945 F Date Time Provider Department 06/15/23 SHADE RILEY AGVASACC During your visit today, we recorded the following information about you: Jose Cruz Martinez 06/15/2023 11:47 AM Signed Received reports on 10/13/22 PFT, 10/13/22 CT Chest, 11/17/22 CT Chest, AND 07/28/21 TTE from [facility]. Scanned into [employer] Allergies As of Date: 06/15/2023 Noted Allergy Reaction PROCHLORPERAZINE 07/27/2018 10 - Anaphylaxis ACETAMINOPHEN 01/23/2007 2 - Rash Comments: Other reaction(s): Rash ALBUTEROL 08/20/2022 14 - Other: See Comments Comments: heart racing. BP flucuating ALCOHOL 01/23/2007 all antibiotics [Other] 01/23/2007 all pain meds [Other] 01/23/2007 ASPIRIN 01/23/2007 12 - Shortness of Breath Comments: Other reaction(s): Shortness of breath BETADINE (POVIDONE-IODINE) 01/23/2007 CEPHALEXIN 07/27/2018 16 - Unknown Comments: Other reaction(s): Unknown CODEINE 07/27/2018 16 - Unknown Comments: Other reaction(s): Unknown COMPAZINE (PROCHLORPERAZINE EDISY*09/15/2018 10 - Anaphylaxis ct scan dye [Other] 01/23/2007 10 - Anaphylaxis DIPHENHYDRAMINE 07/27/2018 4 - Hives Comments: Other reaction(s): Hives DOXYCYCLINE 07/27/2018 16 - Unknown Comments: Other reaction(s): Unknown EGG 09/15/2018 16 - Unknown ERYTHROMYCIN BASE 07/27/2018 16 - Unknown Comments: Other reaction(s): Unknown HYDROMORPHONE 08/20/2022 16 - Unknown IBUPROFEN 07/27/2018 16 - Unknown Comments: Other reaction(s): Unknown KETOROLAC 08/20/2022 12 - Shortness of Breath LATEX 01/23/2007 LIDOCAINE 07/27/2018 7 - Swelling 9 - Itching Comments: Other reaction(s): Unknown MEPERIDINE 07/27/2018 16 - Unknown Comments: Other reaction(s): Unknown MILK 01/23/2007 MORPHINE 08/20/2022 16 - Unknown NAPROXEN 08/20/2022 16 - Unknown NSAIDS (NON-STEROIDAL ANTI-INFLAM*09/15/2018 10 - Anaphylaxis ONDANSETRON 08/20/2022 16 - Unknown PENICILLINS 07/27/2018 16 - Unknown Comments: Other reaction(s): Unknown SOAP 01/23/2007 SULFA (SULFONAMIDE ANTIBIOTICS) 08/20/2022 16 - Unknown TRAMADOL 06/01/2023 12 - Shortness of Breath vegetables [Other] 01/23/2007 WHEAT STARCH 01/23/2007 Date Reviewed: 06/01/2023 Reviewed by: Dianne Vela LPN - Fully Assessed Reason for Visit: Received Outside Medical Records [[id number]] Prescriptions as of 06/15/2023 - blood sugar diagnostic (COINPLUSTOUCH ULTRA BLUE TEST STRIP [facility]) USE TO TEST BLOOD SUGAR DAILY DX E11.9 - olopatadine (PATANOL) 0.1 % ophthalmic solution INSTILL 1 DROP INTO BOTH EYES TWICE DAILY NEEDED AT 6-8 HOUR INTERVALS. - levothyroxine (SYNTHROID) 50 mcg tablet Take 50 mcg by mouth. Two tablet at breakfast - escitalopram oxalate (LEXAPRO) 20 mg tablet Take 20 mg by mouth once daily. - EPINEPHrine (EPIPEN) 0.3 mg/0.3 mL auto-injector as needed - lorazepam (ATIVAN) 1 mg ORAL Tab Take 1 mg by mouth three times daily as needed. Problem List As Of Date 06/15/2023 Noted Resolved PALPITATIONS [R00.2] 01/23/2007 Unspecified hypothyroidism [E03.9] 01/23/2007 SHORTNESS OF BREATH [R06.02] 01/23/2007 OBESITY NOS [E66.9] 01/23/2007 Unspecified sleep apnea [G47.30] 01/23/2007 MYALGIA AND MYOSITIS NOS [[id number]] 01/23/2007 Multiple allergies [Z88.9] 09/15/2018 Chronic bilateral thoracic back pain [M54.6, G8*09/15/2018 COVID-19 [U07.1] 08/20/2022 Acute gastritis [K29.00] 08/20/2022 Chest pain [R07.9] 08/20/2022 Chronic obstructive lung disease (HCC) [J44.9] 08/20/2022 Contusion of knee [S80.00XA] 08/20/2022 Diabetes mellitus (HCC) [E11.9] 08/20/2022 Generalized anxiety disorder [F41.1] 08/20/2022 Hypomagnesemia [E83.42] 08/20/2022 Injury of low back [S39.92XA] 08/20/2022 Mass of head [R22.0] 08/20/2022 Mitral valve prolapse [I34.1] 08/20/2022 Pre-syncope [R55] 08/20/2022 Vertigo [R42] 08/20/2022 Encounter Status:Closed by JOSE CRUZ MARTINEZ on 06/15/23 [facility] 3606-14-2023 36 S: Patient called [facility] clinical access center needing information sent to another physician B: Ongoing today. A: Patient is having a procedure done 06.17.23 by [employer]. Physician is asking for medication used during the endobronchial US. Patient has many allergies and wants to know what is safe to use. Dr. Latasha Miller Office phone # [phone] FAX # [phone] R: Message sent to provider. Patient instructed to call back with concerns or questions. Patient verbalized understanding. Reason for Disposition ? Nursing judgment Protocols used: Information Only Call - No [id number] [facility] 36on 06-10-2023 36 Spoke to pt anita maximilian cancelled PAT appt. Pt stated that she feels Dr. Thomason is not listening to her and is disregarding her concerns about her allergies. Advised pt that an Anesthesiologist was meeting with her to discuss her allergies. Pt stated she does not feel safe and is uncomfortable having Dr. Thomason perform her surgery. I offered an appt with another surgeon in the practice. Pt agreed to see Dr. Cabrales. Nevin scheduled her for 06/28/23. Surgery on 06/15/23 was cancelled per pt request. [facility] 36 Patient cancelled pr e admission testing appointment on 06/08/23, I called and she said she cancelled because anesthesia was not set up to meet with her so I called got pre-admission testing rescheduled to 06/10 with anesthesia meeting with her also. Administration called and she had cancelled pre-admission testing again. I did let patient know that without PAT we could not do surgery. Spoke with patient and she did not feel comfortable and wanted to cancel surgery- transferred to Yecenia ZALDIVAR to talk with her. Yecenia offered her to see another surgeon she agreed so I offered her an appointment on 06/14 she could not do that day then offered 06/15 and she also could not do that day, she wanted 06/28. [facility] 06-09-2023 CNPN Telephone (AGVASACC) JESSICA ASH ([id number]) 1945 F Date Time Provider Department 06/09/23 SHADE RILEYACC During your visit today, we recorded the following information about you: Jose Cruz Martinez 06/09/2023 4:23 PM Signed 07/13/23 NM Stress Test moved up to 06/27/23 Check in [facility] at 7:15am. Pt agreeable to this appt Prep: NPO 4 hours prior, water ok. No caffeine or decaffeinated products 12 hours prior to test. Allow 2-3 hours for test to be completed. EGD order due to abnormal 04/15/23 PET/CT showing hypermetabolism distal esophagus. I've called [facility] GI office of Dr. Bradshaw [phone]. Pt would need office visit before EGD can be performed. First available appt is late July 2023. [facility] [phone] Also scheduling for July 2023. [facility] in [place] [phone] not taking new pts at this time. Dr. Miller office [phone] requested records to be faxed, they will try to get pt in [place]. Records faxed to [phone]. Left upper lobectomy with Dr. Riley tentatively schedule for 07/04/23. Pt has been notified of this information. I Allergies As of Date: 06/09/2023 Noted Allergy Reaction PROCHLORPERAZINE 07/27/2018 10 - Anaphylaxis ACETAMINOPHEN 01/23/2007 2 - Rash Comments: Other reaction(s): Rash ALBUTEROL 08/20/2022 14 - Other: See Comments Comments: heart racing. BP flucuating ALCOHOL 01/23/2007 all antibiotics [Other] 01/23/2007 all pain meds [Other] 01/23/2007 ASPIRIN 01/23/2007 12 - Shortness of Breath Comments: Other reaction(s): Shortness of breath BETADINE (POVIDONE-IODINE) 01/23/2007 CEPHALEXIN 07/27/2018 16 - Unknown Comments: Other reaction(s): Unknown CODEINE 07/27/2018 16 - Unknown Comments: Other reaction(s): Unknown COMPAZINE (PROCHLORPERAZINE EDISY*09/15/2018 10 - Anaphylaxis ct scan dye [Other] 01/23/2007 10 - Anaphylaxis DIPHENHYDRAMINE 07/27/2018 4 - Hives Comments: Other reaction(s): Hives DOXYCYCLINE 07/27/2018 16 - Unknown Comments: Other reaction(s): Unknown EGG 09/15/2018 16 - Unknown ERYTHROMYCIN BASE 07/27/2018 16 - Unknown Comments: Other reaction(s): Unknown HYDROMORPHONE 08/20/2022 16 - Unknown IBUPROFEN 07/27/2018 16 - Unknown Comments: Other reaction(s): Unknown KETOROLAC 08/20/2022 12 - Shortness of Breath LATEX 01/23/2007 LIDOCAINE 07/27/2018 7 - Swelling 9 - Itching Comments: Other reaction(s): Unknown MEPERIDINE 07/27/2018 16 - Unknown Comments: Other reaction(s): Unknown MILK 01/23/2007 MORPHINE 08/20/2022 16 - Unknown NAPROXEN 08/20/2022 16 - Unknown NSAIDS (NON-STEROIDAL ANTI-INFLAM*09/15/2018 10 - Anaphylaxis ONDANSETRON 08/20/2022 16 - Unknown PENICILLINS 07/27/2018 16 - Unknown Comments: Other reaction(s): Unknown SOAP 01/23/2007 SULFA (SULFONAMIDE ANTIBIOTICS) 08/20/2022 16 - Unknown TRAMADOL 06/01/2023 12 - Shortness of Breath vegetables [Other] 01/23/2007 WHEAT STARCH 01/23/2007 Date Reviewed: 06/01/2023 Reviewed by: Dianne Vela LPN - Fully Assessed Reason for Visit: Patient Update [1234] Primary Visit Diagnosis:Carcinoma, lung, left (HCC) [C34.92] Order(s):SURGICAL REQUEST - ELECTIVE (05/2020) [[id number]] Order #: [id number]: 1 Prescriptions as of 06/09/2023 - blood sugar diagnostic (OLSETUCH ULTRA BLUE TEST STRIP [facility]) USE TO TEST BLOOD SUGAR DAILY DX E11.9 - olopatadine (PATANOL) 0.1 % ophthalmic solution INSTILL 1 DROP INTO BOTH EYES TWICE DAILY NEEDED AT 6-8 HOUR INTERVALS. - levothyroxine (SYNTHROID) 50 mcg tablet Take 50 mcg by mouth. Two tablet at breakfast - escitalopram oxalate (LEXAPRO) 20 mg tablet Take 20 mg by mouth once daily. - EPINEPHrine (EPIPEN) 0.3 mg/0.3 mL auto-injector as needed - lorazepam (ATIVAN) 1 mg ORAL Tab Take 1 mg by mouth three times daily as needed. Problem List As Of Date 06/09/2023 Noted Resolved PALPITATIONS [R00.2] 01/23/2007 Unspecified hypothyroidism [E03.9] 01/23/2007 SHORTNESS OF BREATH [R06.02] 01/23/2007 OBESITY NOS [E66.9] 01/23/2007 Unspecified sleep apnea [G47.30] 01/23/2007 MYALGIA AND MYOSITIS NOS [[id number]] 01/23/2007 Multiple allergies [Z88.9] 09/15/2018 Chronic bilateral thoracic back pain [M54.6, G8*09/15/2018 COVID-19 [U07.1] 08/20/2022 Acute gastritis [K29.00] 08/20/2022 Chest pain [R07.9] 08/20/2022 Chronic obstructive lung disease (HCC) [J44.9] 08/20/2022 Contusion of knee [S80.00XA] 08/20/2022 Diabetes mellitus (HCC) [E11.9] 08/20/2022 Generalized anxiety disorder [F41.1] 08/20/2022 Hypomagnesemia [E83.42] 08/20/2022 Injury of low back [S39.92XA] 08/20/2022 Mass of head [R22.0] 08/20/2022 Mitral valve prolapse [I34.1] 08/20/2022 Pre-syncope [R55] 08/20/2022 Vertigo [R42] 08/20/2022 Encounter Status:Closed by JOSE CRUZ MARTINEZ on 06/09/23 [facility] CNPN Telephone (AGVASACC) JESSICA ASH ([id number]) 1945 F Date Time Provider Department 06/09/23 SHADE RILEY AGVASENID During your visit today, we recorded the following information about you: Theo Marsh LPN 06/09/2023 1:16 PM Signed Patient calling in and left message that she would like to speak with Dr. Riley's COTTON EXPERT regarding surgery. Theo Marsh LPN June 09, 2023 1:16 PM Xochilt Klein APRN.DRIVER RECRUITER 06/09/2023 2:05 PM Signed Attempted to call patient back, no answer, LM for patient to call us back. Xochilt Klein APRN.Xochilt Nunez APRN.CNP 06/09/2023 2:22 PM Signed Pt is calling to find out if we were able to have her stress test date moved up. She would also like to schedule surgery so that she can start planning for care for her disabled granddaughter. Will reach out to ticket scheduler to see what changes we can make. Xochilt Klein APRN.DRIVER RECRUITER Allergies As of Date: 06/09/2023 Noted Allergy Reaction PROCHLORPERAZINE 07/27/2018 10 - Anaphylaxis ACETAMINOPHEN 01/23/2007 2 - Rash Comments: Other reaction(s): Rash ALBUTEROL 08/20/2022 14 - Other: See Comments Comments: heart racing. BP flucuating ALCOHOL 01/23/2007 all antibiotics [Other] 01/23/2007 all pain meds [Other] 01/23/2007 ASPIRIN 01/23/2007 12 - Shortness of Breath Comments: Other reaction(s): Shortness of breath BETADINE (POVIDONE-IODINE) 01/23/2007 CEPHALEXIN 07/27/2018 16 - Unknown Comments: Other reaction(s): Unknown CODEINE 07/27/2018 16 - Unknown Comments: Other reaction(s): Unknown COMPAZINE (PROCHLORPERAZINE EDISY*09/15/2018 10 - Anaphylaxis ct scan dye [Other] 01/23/2007 10 - Anaphylaxis DIPHENHYDRAMINE 07/27/2018 4 - Hives Comments: Other reaction(s): Hives DOXYCYCLINE 07/27/2018 16 - Unknown Comments: Other reaction(s): Unknown EGG 09/15/2018 16 - Unknown ERYTHROMYCIN BASE 07/27/2018 16 - Unknown Comments: Other reaction(s): Unknown HYDROMORPHONE 08/20/2022 16 - Unknown IBUPROFEN 07/27/2018 16 - Unknown Comments: Other reaction(s): Unknown KETOROLAC 08/20/2022 12 - Shortness of Breath LATEX 01/23/2007 LIDOCAINE 07/27/2018 7 - Swelling 9 - Itching Comments: Other reaction(s): Unknown MEPERIDINE 07/27/2018 16 - Unknown Comments: Other reaction(s): Unknown MILK 01/23/2007 MORPHINE 08/20/2022 16 - Unknown NAPROXEN 08/20/2022 16 - Unknown NSAIDS (NON-STEROIDAL ANTI-INFLAM*09/15/2018 10 - Anaphylaxis ONDANSETRON 08/20/2022 16 - Unknown PENICILLINS 07/27/2018 16 - Unknown Comments: Other reaction(s): Unknown SOAP 01/23/2007 SULFA (SULFONAMIDE ANTIBIOTICS) 08/20/2022 16 - Unknown TRAMADOL 06/01/2023 12 - Shortness of Breath vegetables [Other] 01/23/2007 WHEAT STARCH 01/23/2007 Date Reviewed: 06/01/2023 Reviewed by: Dianne Vela LPN - Fully Assessed Reason for Visit: Question [1327] Cmt: Surgery Prescriptions as of 06/09/2023 - blood sugar diagnostic (COINPLUSTOUCH ULTRA BLUE TEST STRIP [facility]) USE TO TEST BLOOD SUGAR DAILY DX E11.9 - olopatadine (PATANOL) 0.1 % ophthalmic solution INSTILL 1 DROP INTO BOTH EYES TWICE DAILY NEEDED AT 6-8 HOUR INTERVALS. - levothyroxine (SYNTHROID) 50 mcg tablet Take 50 mcg by mouth. Two tablet at breakfast - escitalopram oxalate (LEXAPRO) 20 mg tablet Take 20 mg by mouth once daily. - EPINEPHrine (EPIPEN) 0.3 mg/0.3 mL auto-injector as needed - lorazepam (ATIVAN) 1 mg ORAL Tab Take 1 mg by mouth three times daily as needed. Problem List As Of Date 06/09/2023 Noted Resolved PALPITATIONS [R00.2] 01/23/2007 Unspecified hypothyroidism [E03.9] 01/23/2007 SHORTNESS OF BREATH [R06.02] 01/23/2007 OBESITY NOS [E66.9] 01/23/2007 Unspecified sleep apnea [G47.30] 01/23/2007 MYALGIA AND MYOSITIS NOS [[id number]] 01/23/2007 Multiple allergies [Z88.9] 09/15/2018 Chronic bilateral thoracic back pain [M54.6, G8*09/15/2018 COVID-19 [U07.1] 08/20/2022 Acute gastritis [K29.00] 08/20/2022 Chest pain [R07.9] 08/20/2022 Chronic obstructive lung disease (HCC) [J44.9] 08/20/2022 Contusion of knee [S80.00XA] 08/20/2022 Diabetes mellitus (HCC) [E11.9] 08/20/2022 Generalized anxiety disorder [F41.1] 08/20/2022 Hypomagnesemia [E83.42] 08/20/2022 Injury of low back [S39.92XA] 08/20/2022 Mass of head [R22.0] 08/20/2022 Mitral valve prolapse [I34.1] 08/20/2022 Pre-syncope [R55] 08/20/2022 Vertigo [R42] 08/20/2022 Encounter Status:Closed by XOCHILT KLEIN on 06/09/23 [facility] 06-06-2023 CNPN Telephone (AGVASACC) JESSICA ASH ([id number]) 1945 F Date Time Provider Department 06/06/23 SHADE RILEY AGVASENID During your visit today, we recorded the following information about you: Dianne Vela LPN 06/06/2023 3:42 PM Signed Jessica Aquino called AND left voice message asking to speak with Dr. Riley's COTTON EXPERT. She said she has a few questions AND was told @ last office visit to call AND COTTON EXPERT would talk with her. She can be reached @ [phone]. DANNY Verduzco Jennifer, APRN.DRIVER RECRUITER 06/06/2023 4:06 PM Signed Pt called to notify us that she is unable to get in until Jul for the stress test. Notified her that I will reach out to our ticket scheduler to see what we can do to expedite the stress test. She also wanted to know if Dr. Riley was going to speak with her sql bi developer prior to the procedure. I notified her that I reached out to the office to get a list of allergies and office notes, but have not received any information back. I will let Dr. Riley know patients request. Xochilt Klein APRN.DRIVER RECRUITER Allergies As of Date: 06/06/2023 Noted Allergy Reaction PROCHLORPERAZINE 07/27/2018 10 - Anaphylaxis ACETAMINOPHEN 01/23/2007 2 - Rash Comments: Other reaction(s): Rash ALBUTEROL 08/20/2022 14 - Other: See Comments Comments: heart racing. BP flucuating ALCOHOL 01/23/2007 all antibiotics [Other] 01/23/2007 all pain meds [Other] 01/23/2007 ASPIRIN 01/23/2007 12 - Shortness of Breath Comments: Other reaction(s): Shortness of breath BETADINE (POVIDONE-IODINE) 01/23/2007 CEPHALEXIN 07/27/2018 16 - Unknown Comments: Other reaction(s): Unknown CODEINE 07/27/2018 16 - Unknown Comments: Other reaction(s): Unknown COMPAZINE (PROCHLORPERAZINE EDISY*09/15/2018 10 - Anaphylaxis ct scan dye [Other] 01/23/2007 10 - Anaphylaxis DIPHENHYDRAMINE 07/27/2018 4 - Hives Comments: Other reaction(s): Hives DOXYCYCLINE 07/27/2018 16 - Unknown Comments: Other reaction(s): Unknown EGG 09/15/2018 16 - Unknown ERYTHROMYCIN BASE 07/27/2018 16 - Unknown Comments: Other reaction(s): Unknown HYDROMORPHONE 08/20/2022 16 - Unknown IBUPROFEN 07/27/2018 16 - Unknown Comments: Other reaction(s): Unknown KETOROLAC 08/20/2022 12 - Shortness of Breath LATEX 01/23/2007 LIDOCAINE 07/27/2018 7 - Swelling 9 - Itching Comments: Other reaction(s): Unknown MEPERIDINE 07/27/2018 16 - Unknown Comments: Other reaction(s): Unknown MILK 01/23/2007 MORPHINE 08/20/2022 16 - Unknown NAPROXEN 08/20/2022 16 - Unknown NSAIDS (NON-STEROIDAL ANTI-INFLAM*09/15/2018 10 - Anaphylaxis ONDANSETRON 08/20/2022 16 - Unknown PENICILLINS 07/27/2018 16 - Unknown Comments: Other reaction(s): Unknown SOAP 01/23/2007 SULFA (SULFONAMIDE ANTIBIOTICS) 08/20/2022 16 - Unknown TRAMADOL 06/01/2023 12 - Shortness of Breath vegetables [Other] 01/23/2007 WHEAT STARCH 01/23/2007 Date Reviewed: 06/01/2023 Reviewed by: Dianne Vela LPN - Fully Assessed Reason for Visit: Patient Question [1477] Prescriptions as of 06/06/2023 - blood sugar diagnostic (ONETOUCH ULTRA BLUE TEST STRIP [facility]) USE TO TEST BLOOD SUGAR DAILY DX E11.9 - olopatadine (PATANOL) 0.1 % ophthalmic solution INSTILL 1 DROP INTO BOTH EYES TWICE DAILY NEEDED AT 6-8 HOUR INTERVALS. - levothyroxine (SYNTHROID) 50 mcg tablet Take 50 mcg by mouth. Two tablet at breakfast - escitalopram oxalate (LEXAPRO) 20 mg tablet Take 20 mg by mouth once daily. - EPINEPHrine (EPIPEN) 0.3 mg/0.3 mL auto-injector as needed - lorazepam (ATIVAN) 1 mg ORAL Tab Take 1 mg by mouth three times daily as needed. Problem List As Of Date 06/06/2023 Noted Resolved PALPITATIONS [R00.2] 01/23/2007 Unspecified hypothyroidism [E03.9] 01/23/2007 SHORTNESS OF BREATH [R06.02] 01/23/2007 OBESITY NOS [E66.9] 01/23/2007 Unspecified sleep apnea [G47.30] 01/23/2007 MYALGIA AND MYOSITIS NOS [[id number]] 01/23/2007 Multiple allergies [Z88.9] 09/15/2018 Chronic bilateral thoracic back pain [M54.6, G8*09/15/2018 COVID-19 [U07.1] 08/20/2022 Acute gastritis [K29.00] 08/20/2022 Chest pain [R07.9] 08/20/2022 Chronic obstructive lung disease (HCC) [J44.9] 08/20/2022 Contusion of knee [S80.00XA] 08/20/2022 Diabetes mellitus (HCC) [E11.9] 08/20/2022 Generalized anxiety disorder [F41.1] 08/20/2022 Hypomagnesemia [E83.42] 08/20/2022 Injury of low back [S39.92XA] 08/20/2022 Mass of head [R22.0] 08/20/2022 Mitral valve prolapse [I34.1] 08/20/2022 Pre-syncope [R55] 08/20/2022 Vertigo [R42] 08/20/2022 Encounter Status:Closed by XOCHILT KLEIN on 06/06/23 [facility] 06-02-2023 TOSIN Telephone (AGVASACC) JESSICA ASH ([id number]) 1945 F Date Time Provider Department 06/02/23 OXCHILT KLEIN During your visit today, we recorded the following information about you: Xochilt Klein APRN.CNP 06/02/2023 1:59 PM Signed Reached out to Dr. Love for information regarding patient's allergies and what options we have for sedation/pain medications. Spoke with nurse, she will fax over the information after she speaks with Dr. Love. Xochilt Klein APRN.TONIA [facility] [facility], Allergies As of Date: 06/02/2023 Noted Allergy Reaction PROCHLORPERAZINE 07/27/2018 10 - Anaphylaxis ACETAMINOPHEN 01/23/2007 2 - Rash Comments: Other reaction(s): Rash ALBUTEROL 08/20/2022 14 - Other: See Comments Comments: heart racing. BP flucuating ALCOHOL 01/23/2007 all antibiotics [Other] 01/23/2007 all pain meds [Other] 01/23/2007 ASPIRIN 01/23/2007 12 - Shortness of Breath Comments: Other reaction(s): Shortness of breath BETADINE (POVIDONE-IODINE) 01/23/2007 CEPHALEXIN 07/27/2018 16 - Unknown Comments: Other reaction(s): Unknown CODEINE 07/27/2018 16 - Unknown Comments: Other reaction(s): Unknown COMPAZINE (PROCHLORPERAZINE EDISY*09/15/2018 10 - Anaphylaxis ct scan dye [Other] 01/23/2007 10 - Anaphylaxis DIPHENHYDRAMINE 07/27/2018 4 - Hives Comments: Other reaction(s): Hives DOXYCYCLINE 07/27/2018 16 - Unknown Comments: Other reaction(s): Unknown EGG 09/15/2018 16 - Unknown ERYTHROMYCIN BASE 07/27/2018 16 - Unknown Comments: Other reaction(s): Unknown HYDROMORPHONE 08/20/2022 16 - Unknown IBUPROFEN 07/27/2018 16 - Unknown Comments: Other reaction(s): Unknown KETOROLAC 08/20/2022 12 - Shortness of Breath LATEX 01/23/2007 LIDOCAINE 07/27/2018 7 - Swelling 9 - Itching Comments: Other reaction(s): Unknown MEPERIDINE 07/27/2018 16 - Unknown Comments: Other reaction(s): Unknown MILK 01/23/2007 MORPHINE 08/20/2022 16 - Unknown NAPROXEN 08/20/2022 16 - Unknown NSAIDS (NON-STEROIDAL ANTI-INFLAM*09/15/2018 10 - Anaphylaxis ONDANSETRON 08/20/2022 16 - Unknown PENICILLINS 07/27/2018 16 - Unknown Comments: Other reaction(s): Unknown SOAP 01/23/2007 SULFA (SULFONAMIDE ANTIBIOTICS) 08/20/2022 16 - Unknown TRAMADOL 06/01/2023 12 - Shortness of Breath vegetables [Other] 01/23/2007 WHEAT STARCH 01/23/2007 Date Reviewed: 06/01/2023 Reviewed by: Dianne Vela LPN - Fully Assessed Prescriptions as of 06/02/2023 - blood sugar diagnostic (ONETOUCH ULTRA BLUE TEST STRIP [facility]) USE TO TEST BLOOD SUGAR DAILY DX E11.9 - olopatadine (PATANOL) 0.1 % ophthalmic solution INSTILL 1 DROP INTO BOTH EYES TWICE DAILY NEEDED AT 6-8 HOUR INTERVALS. - levothyroxine (SYNTHROID) 50 mcg tablet Take 50 mcg by mouth. Two tablet at breakfast - escitalopram oxalate (LEXAPRO) 20 mg tablet Take 20 mg by mouth once daily. - EPINEPHrine (EPIPEN) 0.3 mg/0.3 mL auto-injector as needed - lorazepam (ATIVAN) 1 mg ORAL Tab Take 1 mg by mouth three times daily as needed. Problem List As Of Date 06/02/2023 Noted Resolved PALPITATIONS [R00.2] 01/23/2007 Unspecified hypothyroidism [E03.9] 01/23/2007 SHORTNESS OF BREATH [R06.02] 01/23/2007 OBESITY NOS [E66.9] 01/23/2007 Unspecified sleep apnea [G47.30] 01/23/2007 MYALGIA AND MYOSITIS NOS [[id number]] 01/23/2007 Multiple allergies [Z88.9] 09/15/2018 Chronic bilateral thoracic back pain [M54.6, G8*09/15/2018 COVID-19 [U07.1] 08/20/2022 Acute gastritis [K29.00] 08/20/2022 Chest pain [R07.9] 08/20/2022 Chronic obstructive lung disease (HCC) [J44.9] 08/20/2022 Contusion of knee [S80.00XA] 08/20/2022 Diabetes mellitus (HCC) [E11.9] 08/20/2022 Generalized anxiety disorder [F41.1] 08/20/2022 Hypomagnesemia [E83.42] 08/20/2022 Injury of low back [S39.92XA] 08/20/2022 Mass of head [R22.0] 08/20/2022 Mitral valve prolapse [I34.1] 08/20/2022 Pre-syncope [R55] 08/20/2022 Vertigo [R42] 08/20/2022 Encounter Status:Closed by XOCHILT KLEIN on 06/02/23 [facility] CNOV Office Visit ([facility] CC) JESSICA ASH ([id number]) 1945 F Date Time Provider Department 06/01/23 2:00 PM SHADE RILEY During your visit today, we recorded the following information about you: Pulse Respiration Blood pressure Weight 56/minute 16/minute 112/64 87.6 kg Height 1.651 m Xochilt Klein APRN.TONIA 06/01/2023 2:58 PM Addendum You came in to see Dr. Riley today for surgical evaluation of lung cancer, by reviewing your images/clinical data, Dr. Riley recommend the following: Recommend stress test to be sure that your heart can handle surgery. We will schedule this for you and give you a call at that time. Believes this is an early stage cancer, the best recommendation for treatment is removal of the cancer A lobectomy is removal of part of lung. Can do this if your lung function is good, he believes your lung function tests are good and would tolerate the removal of the lobe. Once we receive the results of stress test and all reports from the other hospitals, if surgery remains the appropriate option, at that time we will schedule for surgery and pre admission testing. Thanks for coming in to see us today. Please call us if you have any concerns/questions: [phone] Xochilt Klein APRN.TONIA Cardiothoracic surgery COTTON EXPERT Shade Riley MD 06/01/2023 3:37 PM Signed CARDIOTHORACIC SURGERY CONSULT / HANDP SERVICE DATE: 06/01/2023 SERVICE TIME: 3:03 PM Subjective PRIMARY SERVICE: Cardiothoracic Surgery CHIEF COMPLAINT: left upper lobe nonsmall cell lung cancer HPI: This is a 78 year old woman referred for evaluation of a left upper lobe nonsmall cell lung cancer and for consideration for resection. She complains of long standing exertional dyspnea. A left upper lobe lesion was identified on CXR. Subsequent CT scans of the chest performed in October and November showing stable 2.3 cm area of consolidation within the left upper lobe with stable central nodular density; no adenopathy; no effusion. PET scanning 04/15 was positive at this site for hypermetabolism with SUV 12.9. A new second hypermetabolic nodule is identified in the left upper lobe laterally and anteriorly, pleural based, measuring 1.6 x 1.1 cm with SUV 4.1. No hypermetabolic mediastinal lymph nodes. There is hypermetabolsim associated with the distal esophagus with SUV 6.8 (felt to be inflammatory).. CT guided biopsy is positive for nonsmall cell cancer, favoring adenocarcinoma. Bronchoscopic EBUS evaluation of the mediastinum is negative at stations 11R, 4R, 4L, 7, 11L. By report, her recent PFTs are good with FEV1 of 70% and normal DLCO; I do not have documentation at hand. She denies cough, sputum, hemoptysis, weight loss, new pain. She endorses some episodes of chest pressure with exertion. She denies any h/o CAD, CHF, previous heart cath, or stress test. She is a remote smoker. She has COPD. She has ANA. She does not tolerate CPAP treatment. She has multiple drug allergies and/or intolerances, which has made previous procedural sedation and pain control difficult to navigate. PAST MEDICAL HISTORY Diagnosis Date COPD (chronic obstructive pulmonary disease) (HCC) IFG (impaired fasting glucose) Myalgia and myositis, unspecified 01/23/2007 Obesity, unspecified 01/23/2007 Palpitations 01/23/2007 Shortness of breath 01/23/2007 Unspecified hypothyroidism 01/23/2007 Unspecified sleep apnea 01/23/2007 PAST SURGICAL HISTORY Procedure Laterality Date CHOLECYSTECTOMY Cholecystectomy PAST SURGICAL HISTORY OF repair of fractured jaw TOTAL ABDOMINAL HYSTERECT W/WO RMVL TUBE OVARY Hysterectomy, BRIANA FAMILY HISTORY Problem Relation Age of Onset Diabetes Mother living at age 87. congestive failure, COPD Heart Father in his 70's, several MD's other (pancreatic cancer [Other]) Brother at age 58 Colon Cancer Son at age 20 Social History Tobacco Use Smoking status: Former Packs/day: 3.00 Years: 30.00 Additional pack years: 0.00 Total pack years: 90.00 Types: Cigarettes Quit date: 1994 Years since quittin.6 Smokeless tobacco: Never Tobacco comments: quit 1994 Substance Use Topics Alcohol use: No (Not in a hospital admission) blood sugar diagnostic (ONETOUCH ULTRA BLUE TEST STRIP [facility]) USE TO TEST BLOOD SUGAR DAILY DX E11.9 olopatadine (PATANOL) 0.1 % ophthalmic solution INSTILL 1 DROP INTO BOTH EYES TWICE DAILY NEEDED AT 6-8 HOUR INTERVALS. levothyroxine (SYNTHROID) 50 mcg tablet Take 50 mcg by mouth. Two tablet at breakfast escitalopram oxalate (LEXAPRO) 20 mg tablet Take 20 mg by mouth once daily. EPINEPHrine (EPIPEN) 0.3 mg/0.3 mL auto-injector as needed lorazepam (ATIVAN) 1 mg ORAL Tab Take 1 mg by mouth three times daily as needed. ALLERGIES Allergen Reactions Prochlorperazine Anaphylaxis Acetaminophen R (more content not included)... Normal [facility] 36on 05-18-2023 36 Surg proc already placed, did add PAT orders Normal [facility] Office Visiton 05-11-2023 Follow-up visit [id number] Jessica Ash 1945 F Date Provider Department Center 05/11/[address] [facility] None Family History Problem Relation Age of Onset Heart failure Mother Diabetes Mother Cancer Father Heart disease Father Family Status - Relation Status Age at Mother Father Level of Service:19984 MT OFFICE/OUTPATIENT ESTABLISHED MOD MDM 30-39 MIN Reason for Visit and Comments: Follow-up [308357] Normal [facility] Progress Noteon 05-11-2023 Progress Note [facility]ORAC[facility] SURG[facility] [address] [facility] [address] Dept: [phone] Dept Loc: [phone] Patient was seen today via Telehealth by agreement and consent. I used the following Telehealth technology: Audio capability only. Total Length of call 30 minutes. The patient was offered and advised video for a more comprehensive evaluation, but the patient declined or was unable to use video. This patient encounter is appropriate and reasonable under the circumstances given the patient's particular presentation at this time. The patient has been advised of the potential risks and limitations of this mode of treatment (including but not limited to the absence of in-person examination) and has agreed to be treated in a remote fashion in spite of them. Any and all of the patient's/patient's family's questions on this issue have been answered and I have made no promises or guarantees to the patient. The patient has also been advised to contact this office for worsening conditions or problems, and seek emergency medical treatment and/or call 911 if the patient deems either necessary. The patient stated that they are currently in the state [facility]. If the patient is a minor, permission has been obtained by the parent or guardian for the patient to receive medical care at this visit. Visit type: Established Reason for Visit: Left lung cancer Assessment and plan 78 F with left upper lobe lung cancer. EBUS shows no malignant mediastinal node. PET shows 2 avid nodules in the left upper lobe. I again stressed the importance of surgical intervention. She wants to be scheduled and go see PAT to discuss anesthetic options. She will be scheduled. Gabby Thomason MD Cardiothoracic Surgery History of Present Illness Jessica Ash is a 78 y.o. female known to Dr. Thomason for left upper lobe non-small cell cancer. Per note, pt was originally referred by SY Larose for newly diagnosed non-small cell carcinoma of ROSETTA. Pt saw Cardiology with c/o SOB. CT chest was completed on 10/13/22 and demonstrated posterior left upper lobe consolidation which has a nodular central aspect. Pt then had follow up CT scan completed on 11/17/22 which showed stable left upper lobe consolidation with nodular central density. A PET scan was ordered and completed on 01/21/23 which showed hypermetabolic left posterior upper lobe lesion exhibiting max SUV 4.0 is concerning for/compatible with malignancy. Pt underwent CT guided biopsy on 12/22/22. Sampling showed pulmonary parenchyma with focal atypical alveolar lining cells. A repeat biopsy was recommended which the pt underwent on 03/16/23. Sampling of left upper lobe nodule showed non-small cell carcinoma, favor adenocarcinoma, consistent with lung primary. Dr. Thomason Note 03/30/23 Assessment and plan 78-year-old female with recently diagnosed left upper lobe non-small cell cancer. I have reviewed the images and my interpretation is a 2 cm fissural left upper lobe nodule. She does have borderline mediastinal adenopathy. Left upper lobe non-small cell cancer: Given that she already has a CT-guided biopsy of the left upper lobe nodule, prior to establishing treatment plan, she will need her mediastinal staged. As her nodule is on the left, there will be no access to the right except for mediastinoscopy for endobronchial ultrasound. I have referred her for an endobronchial ultrasound for mediastinal lymph node biopsies. Her previous PET was more than 2 months ago. Given the prolonged duration, this is now insufficient to completely stage her. I have ordered a repeat PET scan to be done prior to offering treatment. She understands. A anticipation, I discussed t this stage, diagnosis seems to be a stage I non-small cell lung cancer. If it remains so, we discussed treatment with lobectomy versus SBRT. She is leaning to was surgical resection. Final decision to delay after repeat PET scan endobronchial ultrasound biopsy results finalized. In anticipation, I discussed the risks and benefits of robotic left upper lobectomy with lymph node dissection. She has adequate PFTs to tolerate a lobectomy. The risks of the procedure/s include but are not limited to, bleeding, persistent air leak, infection, pneumonia, respiratory failure, prolonged Intensive Care Unit stay, multiorgan failure, renal failure, cerebrovascular accident, pulmonary embolism, deep venous thrombosis, cardiac failure or ischemia or arrhythmia, and . She understands. PET was then completed on 04/15/23 and showed hypermetabolic pulmonary nodules as described concerning for multifocal malignancy, persistent nodule identified on outside study shows intense increased activity, highly suspicious for malignancy. At least moderate increased activity associated with a second nodule which was not seen previously; (more content not included)... [facility] [id number] 05-09-2023 [id number] Pt is scheduled for VV on 05/11/23 at 11:30am with Dr. Thomason. Pt confirmed appointment. [facility] Office Visiton 05-05-2023 Follow-up visit [id number] Jessica Ash 1945 F Date Provider Department Center 05/05/2023 JOSÉ MIGUEL ORELLANA [facility] None Family History Problem Relation Age of Onset Heart failure Mother Diabetes Mother Cancer Father Heart disease Father Family Status - Relation Status Age at Mother Father Level of Service:34986 MT PHYS/QHP TELEPHONE EVALUATION 21-30 MIN Reason for Visit and Comments: Lung Cancer [228] Normal [facility] Progress Noteon 05-05-2023 Progress Note Patient was seen tod ay via Telehealth by agreement and consent. I used the following Telehealth technology: Audio capability only. Total length of call 22 minutes. The patient was offered and advised video for a more comprehensive evaluation, but the patient declined or was unable to use video. Patient location: Home. This patient encounter is appropriate and reasonable under the circumstances given the patient's particular presentation at this time. The patient has been advised of the potential risks and limitations of this mode of treatment (including but not limited to the absence of in-person examination) and has agreed to be treated in a remote fashion in spite of them. Any and all of the patient's/patient's family's questions on this issue have been answered and I have made no promises or guarantees to the patient. The patient has also been advised to contact this office for worsening conditions or problems, and seek emergency medical treatment and/or call 911 if the patient deems either necessary. The patient stated that they are currently in the [facility]. If the patient is a minor, permission has been obtained by the parent or guardian for the patient to receive medical care at this visit. Chief Complaint: Chief Complaint Patient presents with Lung Cancer History of Present Illness: HPI Follow up after bronchoscopy/EBUS to evaluate mild mediastinal adenopathy to stage prior to planned resection of ROSETTA for adenocarcinoma (previously biopsied). She has multiple drug allergies which limited anesthesia. She had laryngospasm due to lack of lidocaine and required intubation during the bronchoscopy. She otherwise did well despite receiving numerous medications from classes that she has reported allergies to. Sampling of mediastinal and bilateral hilar lymph nodes by EBUS is negative for malignancy with good lymph node samples. She also reports severe ANA and was intolerant of CPAP. She is interested in exploring treatment options again. Past Medical History: Past Medical History: Diagnosis Date Anxiety Bradycardia COPD (chronic obstructive pulmonary disease) (HCC) Depression Diabetes (HCC) Former smoker Hyperthyroidism Mitral valve prolapse MVP (mitral valve prolapse) Obesity Sleep apnea Social History: Social History Socioeconomic History Marital status: Tobacco Use Smoking status: Former Packs/day: 2.00 Years: 31.00 Pack years: 62.00 Types: Cigarettes Start date: 1963 Quit date: 10/10/1994 Years since quittin.5 Smokeless tobacco: Never Substance and Sexual Activity Alcohol use: Never Drug use: Never Social Determinants of Health Intimate Partner Violence: Not At Risk (04/28/2023) Humiliation, Afraid, Rape, and Kick questionnaire Fear of Current or Ex-Partner: No Emotionally Abused: No Physically Abused: No Sexually Abused: No Family History: Family History Problem Relation Name Age of Onset Heart failure Mother Diabetes Mother Cancer Father Heart disease Father ROS: Review of Systems All other systems reviewed and are negative. Medications: Current Outpatient Medications Medication Sig Dispense Refill diphenhydrAMINE HCl (ALLERGY MED PO) Take by mouth. escitalopram (Lexapro) 20 MG tablet Take 20 mg by mouth in the morning. levothyroxine (Synthroid, Levoxyl) 50 MCG tablet Take 50 mcg by mouth daily. LORazepam (Ativan) 1 MG tablet Take 1 tablet by mouth daily. olopatadine (Pataday) 0.1 % ophthalmic solution 1 drop 2 times daily. No current facility-administered medications for this visit. Allergies: Allergies Allergen Reactions Aspirin Shortness of breath Other reaction(s): Shortness of breath Other reaction(s): Shortness of breath Epinephrine Unknown Prochlorperazine Anaphylaxis Cephalexin Other reaction(s): Unknown Other reaction(s): Unknown Other reaction(s): Unknown Cephalosporins Other reaction(s): Unknown Codeine Other reaction(s): Unknown, Unknown Other reaction(s): Unknown Other reaction(s): Unknown Diphenhydramine Hives Other reaction(s): Hives Other reaction(s): Hives Doxycycline Other reaction(s): Unknown Other reaction(s): Unknown Other reaction(s): Unknown Erythromycin Base Other reaction(s): Unknown Other reaction(s): Unknown Other reaction(s): Unknown Ibuprofen Other reaction(s): Unknown Other reaction(s): Unknown Other reaction(s): Unknown Iodinated Contrast Media Other reaction(s): Anaphylaxis Lidocaine Other reaction(s): Unknown Other reaction(s): Unknown Other reaction(s): Unknown Meperidine Other reaction(s): Unknown Other reaction(s): Unknown Other reaction(s): Unknown Morphine Other reaction(s): Unknown Penicillins Other reaction(s): Unknown, Unknown Other reaction(s): Unknown Other reaction(s): Unknown Acetaminophen Rash Other reaction(s): Rash Other reaction(s): Rash Nsaids Rash Physical Exam: B (more content not included)... Normal [facility] Laboratory - Chemistry and C hemistry - challengeon 04-28-2023 Glucose [Mass/Vol] 99 mg/dL 70 - 100 mg/dL [facility] No Panel Informationon 04-28 Interpretation and review of laboratory results Normal [facility] Performed by: [facility], [address] [place] [address] CLIA ID: [id number] [facility] Nursing Noteon 04-28-2023 Nursing Note Pt ambulated with RN , denies dizziness. No acute distress noted. All questions answered, discharged with RN in wheelchair to vehicle. [facility] Nursing Note Pt requesting RN spe ak to Dr. Reis for another dose of ativan. RN educated pt a dose was just given, as per MAR pt has received 0.5mg IV at 1557, pt adamant on RN speaking with Dr. Reis. Dr. Reis paged. 9423- verbal order for 0.5mg ativan IV. See MAR [facility] Nursing Note Reviewed homegoing instructions with patient and . [facility] Nursing Note at bedside. Glasses and dentures returned to patient. [facility] 04-26-2023 36 I called this jesseniaen t yesterday and discussed her anesthesia from Dr uribe's office recommendations. Versed and possibly sevofurane. Patient hung up on me twice. See previous TE. [facility] 04-25-2023 Name of caller: Jessica Contact phone number: [phone] Relationship to Patient: patient Provider: Jose Practice: [facility] Chief Complaint/Reason for Call: patient called in wanting to speak to a nurse and discuss the anesthesia patient would like a callback please advise and thank you Best time of day caller can be reached: any Patient advised that office/PCP has 24-48 business hours to return their call: Yes [facility] 36 I found the old TE regarding Dr Uribe's message that it would be versed with possible sevofurane. I called the patient back x2 as she didn't answer the first time. I explained that I found the note and what it stated exactly possible sevofurane. Patient said I talked with Dr Uribe's office and they said versed only....nothing about sevofurane. Patient said I'm not going to argue with you. I reread the message to her and she hung up on me again... Patient is well aware of what was discussed with her by multiple doctors on her anesthesia. Patient knows that her procedure is scheduled for April 28. Closing call. [facility] 36 Called the patient timothy avery and spoke with her. She was inquiring about what they were going to use to put her too sleep. I didn't know at the time and I explained that to the patient. She had a previous appointment with Dr Johnson which they had gone over this. Patient wasn't satisfied with this answer and hung up on me. Normal [facility] 36 Patient called and l eft a message on the voicemail requesting a call back. Normal [facility] 36on 04-20-2023 36 Pt is active with [facility] and no PA needed for any testing Normal [place] [id number] New Care coordinatio n created. Patient scheduled for April 28 at 1:30 with BB. Normal [facility] 36 Patient scheduled fo r EBUS Physician performing: Dr. José Miguel Reis MD Location: [facility] ENDOSCOPY Patient Questions Does patient take blood thinners? No Does patient take ASA?No Does patient take NSAIDS? No Does patient take diabetic medications? No Does patient have Pacemaker, defibrillator, life vest, other implants? No Recent illness or covid exposure? No Chance of ? No Patient aware will need transportation home from hospital? Yes Dr Mcbride* Blood work needed N/A Procedure Information Bronch Date: 04/28/2023 Time: 1:30PM Arrival time: 12:30PM Telephone visit scheduled for results? yes Procedure placed on physician's outlook calendar? yes Procedure Case Request Surgery Scheduling ENB Rep in case order yes [place] Rep no [place] emailed in outlook of procedure no Radiology yes Pathology yes Total time 120 minutes After Scheduling in Snapboard Orders Entered yes under order-set bronch procedure CT Disks CT Scan needed yes 04/15/[address] Disc Picked up 04/20/2023 & downloaded yes CT Prior auth Jennifer Rivas notified no Itinerary Patient instructed to bring insurance card, photo ID and mask? Yes Patient notified of procedure date, time, prep/NPO status, arrival time, location and entrance, must have a ride, and to bring: drivers license, insurance card, mask, med list. Reviewed prep and itinerary with patient and voice understanding? yes Route TE to Kristi Dixon upon completion yes Instructions EBUS Procedure Date: 04/28/23 Time: 1:30PM Arrival Time: 12:30PM Physician: Dr. Reis Location: [facility], Endoscopy Department, [address] [place] [address], [facility] Please arrive at the hospital registration desk 1 hour prior to scheduled start of procedure. You will need someone with you the day of procedure for transportation home from the hospital as you will not be permitted to drive, operate any heavy machinery, or drink any alcohol after your procedure due to sedation. If you experience any fever/sick symptoms prior to procedure please call the nurse. Bring your insurance card, photo ID and a mask with you. 8 hours prior to scheduled procedure (5:30AM) is the cut off for solid foods or thick liquids. You may have clear liquids (black coffee or tea, soda, sports drinks and water) until 2 hours (11:30AM) prior to your scheduled start. Any blood thinning medications like Coumadin, Eliquis, Xarelto or Plavix should be held prior to the procedure. Contact the nurse if you take any of these medications. Please refrain from taking any Aspirin and/or NSAID products (i.e. Aleve, Ibuprofen, Motrin or Naproxen) for 5 days prior to procedure. Other medications can be taken as usual up to 2 hours (11:30AM) prior as long as you are able to tolerate them on an empty stomach. Nothing by mouth after 11:30AM. From registration you will go to the endoscopy unit, the staff there will get you checked in and start an intravenous catheter (IV). Our Anesthesia Team will ask you some health history questions prior and will be there to monitor you for the duration of your procedure. Dr. Reis will be available to speak with you prior to your procedure in case you have any questions. The procedure itself usually lasts about 2 hours and you will be asleep the entire time. After the procedure you will be taken to the recovery area for monitoring. The procedure is planned as outpatient, and you will be discharged the same day. Estimated time at the hospital ranges from 4-5 hours the day of the procedure. The physician will use a small, flexible scope to go through your mouth and into the lung to sample the area(s) that were discussed with you. The scope has a channel that tools are inserted in to biopsy, collect specimens and/or wash the particular area. The physician will discuss any initial findings post procedure at the hospital with you. Final results typically come back within a week and a follow up will be scheduled based on the physician's recommendation. You are scheduled for a follow up telephone appointment 05/05/23. Dr. Reis will call around 9:45AM to discuss results with you. Things to look for post procedure: Fever greater than 101F Coughing up/spitting up bright red blood greater than a teaspoon Increased Shortness of breath/distress and/ or sudden onset of chest pain (call 911 and head to the nearest emergency department) You will be sent home with discharge instructions. You can eat and drink as tolerated post procedure. You may experience some fatigue, irritation of the throat, coughing, and/or pink tinged mucus after the procedure. This is normal and be expected to last about 24-48 hours. Over the counter medications such as lozenges, cough drops, chloraseptic sprays can help these symptoms. If they persist please call the office. If you have any questions please call: [phone] RN [facility] (more content not included)... Normal [facility] 36 Patient opted for 04/28/23 for EBUS/ENB with BB Normal [facility] Office Visiton 04-19-2023 Follow-up visit [id number] Jessica Ash 1945 F Date Provider Department Center 04/19/2023 [facility] None Family History Problem Relation Age of Onset Heart failure Mother Diabetes Mother Cancer Father Heart disease Father Family Status - Relation Status Age at Mother Father Level of Service:78347 MT PHYS/QHP TELEPHONE EVALUATION 11-20 MIN Reason for Visit and Comments: Breathing Problem [17] Normal [facility] PET+CT Bone from skull base to mid-thigh W [id number]-NaF Emigdio 04-15-2023 Impression: Abnormal study. Hypermetabolic pulmonary nodules as described concerning for multifocal malignancy. Persistent nodule identified on outside study shows intense increased activity, highly suspicious for malignancy. At least moderate increased activity associated with a second nodule which was not seen previously; also suspicious for malignancy. Hypermetabolism associated distal esophagus nonspecific, questionably inflammatory. Report Dictated on Electronically Signed By: Shiraz Riley Electronically Signed Date/Time: 04/15/2023 11:19 AM [facility] [employer] Patient Name: Vannessa ASH AISHA : 1945 Exam Date/Time: 04/15/2023 08:34 Procedure: PET/CT SKULL BASE TO MID THIGH Ordering Provider: THOMASON NKEM Reason For Exam: Lung Nodule History: Lung nodule Following the intravenous administration of 12.4 mCi of tracer a PET scan of the torso was acquired per protocol. Contemporaneously, noncontrast axial CT images were obtained using low dose technique. The images were reconstructed in three orthogonal planes and digitally coregistered. 3-D imaging created and reviewed on independent 3-D workstation. The CT data was used for attenuation correction as well. Dose reduction was employed with automated exposure control. Comparisons available: 11/17/2022, outside facility Brain: Poorly evaluated limited sections with this technique. Neck and chest: There is a persistent nodule in the left upper lobe adjacent to the fissure, about 1.5 cm previously closer to 12 mm. There is associated intense increased activity SUV maximum 12.9. A new nodule in the left upper lobe laterally and anteriorly, pleural-based, up to 1.6 x 1.1 cm, shows increased activity SUV maximum 4.1. No convincing moderate or marked hypermetabolic lymph nodes of the neck or mediastinum. No major volume loss of lung donaldson. Abdomen and pelvis: There is hypermetabolism associated with the distal esophagus SUV maximum 6.8. Note made of hiatal hernia. Musculoskeletal: No foci of moderate or marked abnormal uptake on a pattern to suggest high likelihood of malignancy. [facility] Shiraz Riley MD - 04/15/2023 [facility] Name[facility]SH : 1945 [id number] Exam Date/Time: 04/15/2023 08:34 Procedure: PET/CT SKULL BASE TO MID THIGH Ordering Provider: THOMASON NKEM Reason For Exam: Lung Nodule History: Lung nodule Following the intravenous administration of 12.4 mCi of tracer a PET scan of the torso was acquired per protocol. Contemporaneously, noncontrast axial CT images were obtained using low dose technique. The images were reconstructed in three orthogonal planes and digitally coregistered. 3-D imaging created and reviewed on independent 3-D workstation. The CT data was used for attenuation correction as well. Dose reduction was employed with automated exposure control. Comparisons available: 11/17/2022, outside facility Brain: Poorly evaluated limited sections with this technique. Neck and chest: There is a persistent nodule in the left upper lobe adjacent to the fissure, about 1.5 cm previously closer to 12 mm. There is associated intense increased activity SUV maximum 12.9. A new nodule in the left upper lobe laterally and anteriorly, pleural-based, up to 1.6 x 1.1 cm, shows increased activity SUV maximum 4.1. No convincing moderate or marked hypermetabolic lymph nodes of the neck or mediastinum. No major volume loss of lung donaldson. Abdomen and pelvis: There is hypermetabolism associated with the distal esophagus SUV maximum 6.8. Note made of hiatal hernia. Musculoskeletal: No foci of moderate or marked abnormal uptake on a pattern to suggest high likelihood of malignancy. IMPRESSION: Impression: Abnormal study. Hypermetabolic pulmonary nodules as described concerning for multifocal malignancy. Persistent nodule identified on outside study shows intense increased activity, highly suspicious for malignancy. At least moderate increased activity associated with a second nodule which was not seen previously; also suspicious for malignancy. Hypermetabolism associated distal esophagus nonspecific, questionably inflammatory. Report Dictated on Electronically Signed By: Shiraz Riley Electronically Signed Date/Time: 04/15/2023 11:19 AM EDT [facility] Radiology Study observation (narrative) [facility] PET+CT Bone from skull base to mid-thigh W 18F-NaF IVOrdered By: Shiraz Riley on 04-15-2023 [facility] Work Phone: 36on 04-13-2023 36 This RN spoke with patient to advise Dr. Love recommended Versed and that Dr. Johnson said they can use Versed and possibly an inhaled anesthesia called Sevoflourane. This RN attempted to schedule EBUS next week with Dr. Reis. Patient is still not agreeable to schedule procedure at this time and states she does not want to schedule procedure with Dr. Reis. Patient still had many questions about why the procedure needs done, exactly what is the plan for anesthesia etc. This RN discussed with Dr. Johnson and he advised to schedule telephone appointment after her PET scheduled 04/15/23 and he will discuss with her. Patient agreeable. Follow up telephone appointment scheduled 04/19/23 12:[address] Johnson. [facility] 36on 04-11-2023 36 This RN received zane l back from patient's Inorganic Chemical Technician, Dr. Love. 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 He states the bigger issue is that patient has severe anxiety, especially regarding being put to sleep with general anesthesia. He is inquiring if we can use Versed for her EBUS procedure instead. Dr. Love will call back after the holiday on Tuesday to discuss further. [facility] [id number] [address] Love's office to set up phone call with Dr. Johnson. Staff advised if he gets a break after his morning patients he will try to call to discuss. Dr. Johnson notified. [facility] Office Visiton 04-05-2023 Follow-up visit [id number] Jessica Ash 1945 [facility] Provider Department Center 04/05/2023 [id number] HODGES [facility] None Family History Problem Relation Age of Onset Heart failure Mother Diabetes Mother Cancer Father Heart disease Father Family Status - Relation Status Age at Mother Father Level of Service:80360 MT PHYS/QHP TELEPHONE EVALUATION 11-20 MIN Reason for Visit and Comments: Lung Cancer [228] [facility] 36on 04-04-2023 36 This RN met with patient in the office after her 03/31/[address] Reis to discuss EBUS scheduling and itinerary. Patient requests to call me in a few days to schedule procedure. [facility] 36on 04-01-2023 36 Done. [facility] 36 ----- Message from José Miguel Reis MD sent at 03/31/2023 6:26 PM EDT ----- Jayde- please send to pcp [facility] Office Visiton 03-31-2023 Follow-up visit [id number] Jessica Ash 1945 [facility] Provider Department Center 03/31/2023 [id number] MIGUEL TENORIO [facility] None Family History Problem Relation Age of Onset Heart failure Mother Diabetes Mother Cancer Father Heart disease Father Family Status - Relation Status Age at Mother Father Level of Service:93229 MT OFFICE/OUTPATIENT NEW MODERATE MDM 45-59 MINUTES Reason for Visit and Comments: Lung Nodule [519] Normal [facility] PATINSon 03-31-2023 PATINS YOUR APPOINTMENT TOSukhi MORTON WAS WITH THE [facility] LUNG NODULE CLINIC, COPD CLINIC, PULMONARY AND SLEEP MEDICINE OFFICE. PLEASE CALL OUR OFFICE AT [phone] IF YOU HAVE NOT RECEIVED YOUR TEST RESULTS 7 DAYS AFTER TESTING IS COMPLETED. PLEASE REMEMBER TO REQUEST REFILLS AT YOUR OFFICE VISITS. PHONE/FAX REQUESTS REQUIRE 48-72 HOURS FOR RESPONSE. A FRIENDLY REMINDER COPAYS ARE DUE AT TIME OF SERVICE. THANK YOU. Our Patients Are Important! We want to improve and you can help. After your visit we want you to feel: Listened to, Respected and have your health care explained. You may receive a survey asking you about your visit. Please complete the survey. We will use your feedback to make improvements. COVID-19 VACCINATION INFORMATION: PH. 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 She presented this past winter with cough and had a CXR. She eventually had a CT chest and PET. Biopsy of ROSETTA was attempted with CT guidance which resulted in hemorrhage in December and was non-diagnostic at [place]. Subsequently seen in [place] and had repeat biopsy which demonstrated malignancy and referred to [facility] for possible surgical resection. A Repeat PET has been ordered. PFTs showed only mild obstruction with normal gas exchange. Treatment is complicated by multiple drug allergies including epinephrine. She was noted to have mild adenopathy and staging EBUS was requested by thoracic surgery. I personally reviewed interpreted her PET, CT chest, and PFTs today. I reviewed her outside it consultant records and thoracic surgery notes. Past Medical History: Past Medical History: Diagnosis Date Anxiety Bradycardia COPD (chronic obstructive pulmonary disease) (HCC) Depression Diabetes (HCC) Former smoker Hyperthyroidism Mitral valve prolapse MVP (mitral valve prolapse) Obesity Sleep apnea Social History: Social History Socioeconomic History Marital status: Tobacco Use Smoking status: Former Packs/day: 2.00 Years: 31.00 Pack years: 62.00 Types: Cigarettes Start date: 1963 Quit date: 10/10/1994 Years since quittin.4 Smokeless tobacco: Never Substance and Sexual Activity Alcohol use: Never Drug use: Never Family History: Family History Problem Relation Name Age of Onset Heart failure Mother Diabetes Mother Cancer Father Heart disease Father ROS: Review of Systems All other systems reviewed and are negative. Medications: Current Outpatient Medications Medication Sig Dispense Refill diphenhydrAMINE HCl (ALLERGY MED PO) Take by mouth. escitalopram (Lexapro) 20 MG tablet Take 20 mg by mouth in the morning. levothyroxine (Synthroid, Levoxyl) 50 MCG tablet Take 50 mcg by mouth daily. LORazepam (Ativan) 1 MG tablet Take 1 tablet by mouth daily. olopatadine (Pataday) 0.1 % ophthalmic solution 1 drop 2 times daily. No current facility-administered medications for this visit. Allergies: Allergies Allergen Reactions Aspirin Shortness of breath Other reaction(s): Shortness of breath Other reaction(s): Shortness of breath Epinephrine Unknown Prochlorperazine Anaphylaxis Cephalexin Other reaction(s): Unknown Other reaction(s): Unknown Other reaction(s): Unknown Cephalosporins Other reaction(s): Unknown Codeine Other reaction(s): Unknown, Unknown Other reaction(s): Unknown Other reaction(s): Unknown Diphenhydramine Hives Other reaction(s): Hives Other reaction(s): Hives Doxycycline Other reaction(s): Unknown Other reaction(s): Unknown Other reaction(s): Unknown Erythromycin Base Other reaction(s): Unknown Other reaction(s): Unknown Other reaction(s): Unknown Ibuprofen Other reaction(s): Unknown Other reaction(s): Unknown Other reaction(s): Unknown Iodinated Contrast Media Other reaction(s): Anaphylaxis Lidocaine Other reaction(s): Unknown Other reaction(s): Unknown Other reaction(s): Unknown Meperidine Other reaction(s): Unknown Other reaction(s): Unknown Other reaction(s): Unknown Morphine Other reaction(s): Unknown Penicillins Other reaction(s): Unknown, Unknown Other reaction(s): Unknown Other reaction(s): Unknown Acetaminophen Rash Other reaction(s): Rash Other reaction(s): Rash Nsaids Rash Physical Exam: BP Temp Pulse Resp SpO2 BP 128/82 (BP Location: Left arm, Patient Position: Sitting, BP Cuff Size: Adult) Pulse 56 Resp 14 Ht 5' 5 (1.651 m) Wt 193 lb (87.5 kg) SpO2 97% Comment: RA BMI 32.12 kg/m? Physical Exam Constitutional: General: She is not in acute distress. Appearance: She is not ill-appearing or toxic-appearing. HENT: Head: Normocephalic and atraumatic. Nose: Nose normal. No congestion or rhinorrhea. Mouth/Throat: Mouth: Mucous membranes are moist. Pharynx: Oropharynx is clear. No oropharyngeal exudate or posterior oropharyngeal erythema. Eyes: General: No scleral icterus. Conjunctiva/sclera: Conjunctivae normal. Cardiovascular: Rate and Rhythm: Normal rate and regular rhythm. Heart sounds: No murmur heard. No friction rub. No gallop. Pulmonary: Effort: Pulmonary effort is normal. No respiratory distress. Breath sounds: No stridor. No wheezing, rhonchi or rales. Abdominal: General: There is no distension. Palpations: Abdomen is soft. Musculoskeletal: General: No swelling, tenderness, deformity or signs of injury. Cervical back: No rigidity or tenderness. Lymphadenopathy: Cervical: No cervical adenopathy. Skin: General: Skin is warm and dry. Coloration: Skin is (more content not included)... Normal [facility] 36on 03-30-2023 36 Patient returned my call. She is available for pet imaging any day, any location, any time. Navigator sent message to Pat assistant office manager requesting expedited appointment. Normal [facility] 36 Navigator received a message from cardiothoracic surgery office requesting assistance with expediting PET scan. Left voicemail for patient to please return my call to determine her availability and location preferences. Normal [facility] Office Visiton 03-30-2023 Follow-up visit [id number] Jessica Ash 1945 F Date Provider Department Center 03/30/2023 GABBY ENCINAS [facility] None Family History Problem Relation Age of Onset Heart failure Mother Diabetes Mother Cancer Father Heart disease Father Family Status - Relation Status Age at Mother Father Level of Service:05777 MT OFFICE/OP CONSLTJ NEW/EST PT HIGH MDM 55 MINUTES Reason for Visit and Comments: New Patient [542] Normal [facility] Progress Noteon 03-30-2023 Progress Note [facility] [address] [facility] [address] Dept: [phone] Dept Loc: [phone] Visit type: New Reason for Visit: Left upper lobe nodule Assessment and plan 78-year-old female with recently diagnosed left upper lobe non-small cell cancer. I have reviewed the images and my interpretation is a 2 cm fissural left upper lobe nodule. She does have borderline mediastinal adenopathy. Left upper lobe non-small cell cancer: Given that she already has a CT-guided biopsy of the left upper lobe nodule, prior to establishing treatment plan, she will need her mediastinal staged. As her nodule is on the left, there will be no access to the right except for mediastinoscopy for endobronchial ultrasound. I have referred her for an endobronchial ultrasound for mediastinal lymph node biopsies. Her previous PET was more than 2 months ago. Given the prolonged duration, this is now insufficient to completely stage her. I have ordered a repeat PET scan to be done prior to offering treatment. She understands. A anticipation, I discussed t this stage, diagnosis seems to be a stage I non-small cell lung cancer. If it remains so, we discussed treatment with lobectomy versus SBRT. She is leaning to was surgical resection. Final decision to delay after repeat PET scan endobronchial ultrasound biopsy results finalized. In anticipation, I discussed the risks and benefits of robotic left upper lobectomy with lymph node dissection. She has adequate PFTs to tolerate a lobectomy. The risks of the procedure/s include but are not limited to, bleeding, persistent air leak, infection, pneumonia, respiratory failure, prolonged Intensive Care Unit stay, multiorgan failure, renal failure, cerebrovascular accident, pulmonary embolism, deep venous thrombosis, cardiac failure or ischemia or arrhythmia, and . She understands. Allergies: Prior to any intervention, will need discussion with anesthesiologist about allergies. Gabby Thomason MD Cardiothoracic Surgery History of Present Illness Jessica Ash is a 78 y.o. female referred by SY Larose for newly diagnosed non-small cell carcinoma of ROSETTA. Per note, pt saw Cardiology with c/o SOB. CT chest was completed on 10/13/22 and demonstrated posterior left upper lobe consolidation which has a nodular central aspect. Pt then had follow up CT scan completed on 11/17/22 which showed stable left upper lobe consolidation with nodular central density. A PET scan was ordered and completed on 01/21/23 which showed hypermetabolic left posterior upper lobe lesion exhibiting max SUV 4.0 is concerning for/compatible with malignancy. Pt underwent CT guided biopsy on 12/22/22. Sampling showed pulmonary parenchyma with focal atypical alveolar lining cells. A repeat biopsy was recommended which the pt underwent on 03/16/23. Sampling of left upper lobe nodule showed non-small cell carcinoma, favor adenocarcinoma, consistent with lung primary. Pt is former smoker. Pt is here now for an evaluation. Past Medical History Past Medical History: Diagnosis Date Anxiety Bradycardia COPD (chronic obstructive pulmonary disease) (HCC) Depression Diabetes (HCC) Former smoker Hyperthyroidism Mitral valve prolapse MVP (mitral valve prolapse) Obesity Sleep apnea Past Surgical History Past Surgical History: Procedure Laterality Date APPENDECTOMY CHOLECYSTECTOMY HYSTERECTOMY Family History Family History Problem Relation Name Age of Onset Heart failure Mother Diabetes Mother Cancer Father Heart disease Father Social History Social History Tobacco Use Smoking status: Former Packs/day: 2.00 Years: 31.00 Pack years: 62.00 Types: Cigarettes Quit date: 10/10/1994 Years since quittin.4 Smokeless tobacco: Never Substance Use Topics Alcohol use: Never Drug use: Never Allergies Allergies Allergen Reactions Aspirin Shortness of breath Other reaction(s): Shortness of breath Other reaction(s): Shortness of breath Epinephrine Unknown Prochlorperazine Anaphylaxis Cephalexin Other reaction(s): Unknown Other reaction(s): Unknown Other reaction(s): Unknown Cephalosporins Other reaction(s): Unknown Codeine Other reaction(s): Unknown, Unknown Other reaction(s): Unknown Other reaction(s): Unknown Diphenhydramine Hives Other reaction(s): Hives Other reaction(s): Hives Doxycycline Other reaction(s): Unknown Other reaction(s): Unknown Other reaction(s): Unknown Erythromycin Base Other reaction(s): Unknown Other reaction(s): Unknown Other reaction(s): Unknown Ibuprofen Other reaction(s): Unknown Other reaction(s): Unknown Other reaction(s): Unknown Iodinated Contrast Media Other reaction(s): Anaphylaxis Lidocaine Other reaction(s): Unknown Other reaction(s): Unknown Other reaction(s): Unknow (more content not included)... Normal [facility] Absolute lymphocyte countOrd ered By: Emil Whittington on 03-29-2023 Lymphocytes Auto (Unsp spec) [#/Vol] 1.66 10*3/uL 0.83-4.51 [facility] Basophil percentageOrdered B y: Emil Whittington on 03-29-2023 Basophils/100 WBC (Bld) 1.2 % 0-1 [facility] Bilirubin [Mass/Vol] 0.20 mg/dL 0.20-1.00 [facility] Comment on above: For patients on eltr ombopag therapy, use of Dimension [place] TBIL is not recommended. Chloride [Moles/Vol] 111 mmol/L 98-107 [facility] Eosinophils/100 WBC (Bld) 2.1 % 0-5 [facility] Glucose [Mass/Vol] 117 mg/dL 74-106 [facility] Comment on above: Fasting Glucose resu lt from 100 to 125 mg/dL suggests IMPAIRED HOMEOSTASIS per A.D.A. criteria. Neutrophils (Bld) [#/Vol] 4.1 10*3/uL 2.0-7.7 [facility] Neutrophils/100 WBC (Bld) 61.2 % 47-70 [facility] Potassium [Moles/Vol] 4.3 mmol/L 3.5-5.1 [facility] Protein [Mass/Vol] 7.0 g/dL 6.4-8.2 [facility] Sodium [Moles/Vol] 142 mmol/L 136-145 [facility] WBC (Bld) [#/Vol] 6.7 10*3/uL 4.4-11.0 [facility] Blood erythrocytes count (nu mber/volume)Ordered By: Emil Whittington on 03-29-2023 RBC (Bld) [#/Vol] 4.74 10*6/uL 4.2-5.4 [facility] Blood hemoglobin measurement (mass/volume)Ordered By: Emil Whittington on 03-29-2023 Hemoglobin (Bld) [Mass/Vol] 13.6 g/dL 12.0-15.0 [facility] Blood lymphocytes/100 leukoc ytesOrdered By: Emil Whittington on 03-29-2023 Lymphocytes/100 WBC (Bld) 24.8 % 19-41 [facility] Blood monocytes/100 leukocyt esOrdered By: [facility] Wh[facility] on 03-29-2023 Monocytes/100 WBC (Bld) 10.3 % 0-10 [facility] Blood platelet mean volumeOr dered By: [facility] Wh[facility] on 03-29-2023 Platelet mean volume (Bld) [Entitic vol] 10.7 fL 6.2-12.0 [facility] Determination of erythrocyte mean corpuscular volume (MCV)Ordered By: [facility] Wh[facility] on 03-29-2023 MCV (RBC) [Entitic vol] 88.2 fL 81-99 [facility] Hematocrit Auto (Bld) [Volum e fraction]Ordered By: [facility] Wh[facility] on 03-29-2023 Hematocrit (Bld) [Volume fraction] 41.8 % 37-47 [facility] Laboratory - Chemistry and C hemistry - challengeOrdered By: [facility] on 03-29-2023 ALP [Catalytic activity/Vol] 91 U/L 45-117 [facility] ALT [Catalytic activity/Vol] 39 U/L 13-56 [facility] CO2 [Moles/Vol] 26.0 mmol/L 21.0-32.0 [facility] Globulin (S) [Mass/Vol] 3.8 g/dL 2.2-4.2 [facility] Urea nitrogen/Creatinine [Mass ratio] 35.2 mg/mg 10-20 [facility] Laboratory - Hematology and Cell countsOrdered By: [facility] Wh[facility] on 03-29-2023 Erythrocyte distribution width (RBC) [Entitic vol] 44.9 fL 35.1-43.9 [facility] Erythrocyte distribution width (RBC) [Ratio] 13.9 % 11.6-14.6 [facility] Immature granulocytes/100 WBC (Bld) 0.400 % 0.0-0.9 [facility] Comment on above: IG% - Immature Granu locytes (promyelocytes, myelocytes and metamyelocytes) > 1% indicates that a LEFT SHIFT is Present. MCH (RBC) [Entitic mass] 28.7 pg 27.0-32.0 [facility] Nucleated RBC/100 WBC (Bld) [Ratio] 0 % 0-5 [facility] MCHC Auto (RBC) [Mass/Vol]Or dered By: Emil Whittington on 03-29-2023 MCHC (RBC) [Mass/Vol] 32.5 g/dL 32-36 [facility] No Panel InformationOrdered By: Emil Whittington on 03-29-2023 Estimated GFR (MDRD) Amer 90 mL/min >60 [facility] Comment on above: GFR Calc Estimated GFR (MDRD) Non-Af Amer 75 mL/min >60 [facility] Comment on above: Non- GFR Calc Platelets bldOrdered By: Tr Whittington on 03-29-2023 Platelets (Bld) [#/Vol] 229 10*3/uL 150-450 [facility] Serum or plasma albumin scotty urement (mass/volume)Ordered By: Emil Whittington on 03-29-2023 Albumin [Mass/Vol] 3.2 g/dL 3.2-5.0 [facility] Serum or plasma albumin/glob ulin mass ratioOrdered By: Emil Whittington on 03-29-2023 Albumin/Globulin [Mass ratio] 0.8 {ratio} 0.9-2.4 [facility] Serum or plasma calcium scotty urement (mass/volume)Ordered By: Emil Whittington on 03-29-2023 Calcium [Mass/Vol] 8.8 mg/dL 8.5-10.1 [facility] Serum or plasma creatinine m easurement (mass/volume)Ordered By: Emil Whittington on 03-29-2023 Creatinine [Mass/Vol] 0.80 mg/dL 0.55-1.02 [facility] Comment on above: The validity of the calculated GFR & GFRAA in patients over 70 years has not been determined. Clinical correlation is essential. Serum or plasma urea nitroge n measurement (mass/volume)Ordered By: Emil Whittington on 03-29-2023 Urea nitrogen [Mass/Vol] 28 mg/dL 7-18 [facility] Thin prep Papanicolaou smear with manual screeningOrdered By: Emil Whittington on 03-29-2023 Thin prep Papanicolaou smear with manual screening 19 U/L 15-37 [facility] Thin prep Papanicolaou smear with manual screening 5 5-15 [facility] INR in Blood by Coagulation assayOrdered By: Linus Estrada on 03-04-2023 INR Coag (Bld) [Relative time] 0.9 {INR} [facility] Laboratory - CoagulationOrde red By: Linus Estrada on 03-04-2023 aPTT Coag (Bld) [Time] 27.7 s 24.1-36.2 [facility] PT Coag (PPP) [Time] 12.2 s 11.7-14.9 [facility] Platelets bldOrdered By: Calixto on 03-04-2023 Platelets (Bld) [#/Vol] 161 10*3/uL 150-450 [facility] CNOVon 01-23-2023 CNOV Office Visit (UCWSTR ) JESSICA ASH ([id number]) 1945 F Date Time Provider Department 01/23/23 10:15 AM CORINNA SHEA [facility] During your visit today, we recorded the following information about you: Temperature Pulse Respiration Blood pressure 97.5 degrees 52/minute 16/minute 120/66 Weight 87.1 kg Corinna Shea APRN.CNP 01/23/2023 10:26 AM Signed ASSESSMENT/PLAN: 1. Swelling of left wrist - ICD9: 719.03, ICD10: M25.432 - XR WRIST GENERAL 3V PA/LAT/OBL LEFT - return to tomorrow for xray (closed at time of exam) - NICOLAS wrap daily. Apply ice and elevate 2-3 times daily. - may take ibuprofen as needed. - Follow-up with your PCP in 3-5 days if symptoms have not improved or sooner if symptoms worsen - Discussed red flags and need for immediate medical evaluation if any occur. - Discussed supportive care treatment with fluids, rest and analgesia. - Discussed expected course of illness FERDINAND Vera APRN.CNP 01/23/2023 10:31 AM Signed Subjective Pain (Shoulder Pain) Pertinent negatives include no chills, fever or rash. Jessica Ash is a 78 year old female who presents with pain her left wrist with swelling. This started last night with redness, swelling, and pain in her left wrist and near the base of her thumb. She put an NICOLAS wrap on it and it got better. This morning it is still slightly swollen and tender. She rates the pain 3 or 4 this morning. States The NICOLAS wrap helped so much. She has not taken any medication for this problem. Review of Systems Constitutional: Negative for chills and fever. Respiratory: Negative. Cardiovascular: Negative. Musculoskeletal: Positive for joint pain. Negative for falls. Skin: Negative for itching and rash. BP 120/66 Pulse (!) 52 Temp 36.4 ?C (97.5 ?F) Resp 16 Wt 87.1 kg (192 lb) SpO2 95% BMI 32.96 kg/m? PAST MEDICAL HISTORY Diagnosis Date COPD (chronic obstructive pulmonary disease) (HCC) IFG (impaired fasting glucose) Myalgia and myositis, unspecified 01/23/2007 Obesity, unspecified 01/23/2007 Palpitations 01/23/2007 Shortness of breath 01/23/2007 Unspecified hypothyroidism 01/23/2007 Unspecified sleep apnea 01/23/2007 PAST SURGICAL HISTORY Procedure Laterality Date CHOLECYSTECTOMY Cholecystectomy PAST SURGICAL HISTORY OF repair of fractured jaw TOTAL ABDOMINAL HYSTERECT W/WO RMVL TUBE OVARY Hysterectomy, BRIANA ALLERGIES Prochlorperazine, Acetaminophen, Albuterol, Alcohol, All Antibiotics [Other], All Pain Meds [Other], Aspirin, Betadine [Povidone-Iodine], Cephalexin, Codeine, Compazine [Prochlorperazine Edisylate], Ct Scan Dye [Other], Diphenhydramine, Doxycycline, Egg, Erythromycin Base, Hydromorphone, Ibuprofen, Ketorolac, Latex, Lidocaine, Meperidine, Milk, Morphine, Naproxen, Nsaids (Non-Steroidal Anti-Inflammatory Drug), Ondansetron, Penicillins, Soap, Sulfa (Sulfonamide Antibiotics), Vegetables [Other], and Wheat Starch MEDICATIONS blood sugar diagnostic (COINPLUSTOUCH ULTRA BLUE TEST STRIP [facility]) USE TO TEST BLOOD SUGAR DAILY DX E11.9 olopatadine (PATANOL) 0.1 % ophthalmic solution INSTILL 1 DROP INTO BOTH EYES TWICE DAILY NEEDED AT 6-8 HOUR INTERVALS. levothyroxine (SYNTHROID) 50 mcg tablet Take 50 mcg by mouth. Three tablet at breakfast escitalopram oxalate (LEXAPRO) 20 mg tablet Take 20 mg by mouth once daily. EPINEPHrine (EPIPEN) 0.3 mg/0.3 mL auto-injector as needed lorazepam (ATIVAN) 1 mg ORAL Tab Take 1 mg by mouth three times daily as needed. FAMILY HISTORY Problem Relation Age of Onset Diabetes Mother living at age 87. congestive failure, COPD Heart Father in his 70's, several MD's other (pancreatic cancer [Other]) Brother at age 58 Colon Cancer Son at age 20 Social History Tobacco Use Smoking status: Former Packs/day: 3.00 Years: 30.00 Pack years: 90.00 Types: Cigarettes Smokeless tobacco: Never Tobacco comments: quit 1994 Substance Use Topics Alcohol use: No Objective Physical Exam Vitals and nursing note reviewed. Constitutional: Appearance: Normal appearance. Cardiovascular: Rate and Rhythm: Normal rate and regular rhythm. Heart sounds: Normal heart sounds. Pulmonary: Effort: Pulmonary effort is normal. No respiratory distress. Breath sounds: Normal breath sounds. No wheezing or rales. Musculoskeletal: General: Swelling and tenderness present. No deformity or signs of injury. Left wrist: Swelling and tenderness present. No deformity, effusion, bony tenderness, snuff box tenderness or crepitus. Normal range of motion. Normal pulse. Skin: General: Skin is warm and dry. Findings: No bruising, erythema or rash. Neurological: Mental Status: She is alert. ASSESSMENT/PLAN: 1. Swelling of left wrist - ICD9: 719.03, ICD10: M25.432 - XR WRIST GENERAL 3V PA/LAT/OBL LEFT - retu (more content not included)... Normal [facility] 12-06-2022 Sleep study results and chart notes were re-faxed. [facility] 12-03-2022 Name of caller: Thanh granado Contact phone number: [phone] Relationship to Patient: [facility] Provider: Dr Marie Practice: Neuro Chief Complaint/Reason for Call: Ericka states the diagnostic sleep study is blurred and also needs the chart notes prior to the sleep study. Please Fax to [phone] and e-mail to [email or web address] Best time of day caller can be reached: Any Patient advised that office/PCP has 24-48 business hours to return their call: Yes [place] [id number] 36 Notes and sleep stud y faxed. [place] [id number] Name of caller: Erlin Contact phone number: [phone] Relationship to Patient: Medical Equipment Provider: Dr. Marie Practice: Neurology Chief Complaint/Reason for Call: Erlin states they contacted the office on the 11/18/22 in regards of the patients sleep study and pre-chart notes prior to the sleep study. They are still in need of them and a note on why the patient cannot tolerate the CPAP machine. Erlin stated their fax number is [phone]. Please advise Best time of day caller can be reached: any Patient advised that office/PCP has 24-48 business hours to return their call: No [place] [id number] 36 Pt notified. Pt demetrio isbell like order sent to [facility] in [facility] 10-28-2022 36 Call her. I made an order for her to get home oxygen for overnight. Where does she want the order sent? [facility] in [place]? [employer] in [place]? Remind her that the oxygen does not reduce the danger of stroke or heart failure from the sleep apnea, so she still needs to see Dr. Patel about the sleep apnea. [facility] 36 Left a message for t he pt to call the office. Please give pt information listed below. Pt is to call and schedule a appt with Dr. Patel at [phone]. [address]. Patel's office has bee notified that the referral is urgent. [facility] ADDENDUMNOTEon 10-28-2022 ADDENDUMNOTE Addended by: TRACEY MARIE on: 10/28/2022 04:37 PM Modules accepted: Orders [facility] 36on 10-27-2022 36 Pulse Oximetry repor t scanned into media. [facility] 36 The message was give n to Cardiology staff to relay to [employer] Marylu Escobedo. A message was left for Dr. Patel office to call back. [facility] 36 Contact Marylu Greenfield in cardiology at [facility] and ask for copies of the pulse oximetry. Let her or her office know that I do not mind them starting oxygen if they feel that they need to. Billing Inquiries: [phone] Ask the patient to see Dr. Patel in [place] about the Inspire device to treat her sleep apnea. I will put the order in the chart. [facility] does not allow me to put the consult order as urgent, can you call his office and ask for it to be urgent? [facility] 36 Name of caller: Jessica Aquino Contact phone number: [phone] Relationship to Patient: patient Provider: DR. Marie Practice: Neurology Chief Complaint/Reason for Call: Jessica Aquino states that she went to her scales inspector d/t sob. The scales inspector ran tests did pft and ox level overnight. Jessica Aquino states that her ox dropped 405 times in one night and was as low as 80%. Jessica Aquino says that she needs Oxygen, but they dont think that she will be able to get oxygen without seeing Dr Marie first. Jessica Aquino states that she hasnt been able to weart the machine for a long time. Jessica Aquino scheduled the first available appt with Dr. Marie, which is December. Please contact Jessica Aquino. Best time of day caller can be reached: any Patient advised that office/PCP has 24-48 business hours to return their call: Yes [facility] CNOVon 08-20-2022 CNOV Office Visit (INTMWS ) JESSICA ASH ([id number]) 1945 F Date Time Provider Department 08/20/22 10:40 AM DOROTHY CASTRO [facility] During your visit today, we recorded the following information about you: Pulse Respiration Blood pressure Weight 49/minute 16/minute 110/68 88 kg Height 1.626 m Dorothy Castro APRN.[facility] 08/20/2022 1:15 PM Signed SUBJECTIVE: COVID-19 VACCINE(1) Never done HEPATITIS C SCREENING Never done DTAP,TDAP,TD(1 - Tdap) Never done COLORECTAL CANCER SCREENING Never done SHINGRIX VACCINE(1 of 2) Never done DIABETES SCREEN due on 01/23/2010 BONE DENSITY Never done PNEUMOCOCCAL: 65+(1 - PCV) Never done LIPID SCREEN due on 01/24/2012 ANNUAL PCP TEAM CHRONIC DISEASE VISIT due on 09/15/2019 ADVANCE DIRECTIVE DISCUSSION Never done DEPRESSION ASSESSMENT Never done INFLUENZA(1) Never done HPI Jessica Ash is a 77 year old female. PMH significant for ACTIVE PROBLEM LIST Palpitations Hypothyroidism Shortness of Breath Obesity, Unspecified Unspecified sleep apnea Myalgia and Myositis, Unspecified Multiple Allergies Chronic Bilateral Thoracic Back Pain Presents today to establish care with Joe Smith MD Previous PCP: Dai Dillard MD [address] [address] [address] Walker allergy doctor in [facility] ([facility] does labwork. Last seen: 2 mos Labwork: 2 mos ER/Hospitalization: no, last year [facility] for Covid19 Outside records: no States she wants to transfer care because she has been going to the other provider for a long time. [facility] sees an sql bi developer in [facility] allergic to all medications. Reports allergies started after formaldehyde exposure long ago. [facility] has had procedures without medication in the past due to the intolerances. ANA followed by neurology [facility] Neurology Kristi Vila, UNIX ANALYST -DRIVER RECRUITER. Seen by Dr Marie 2020 for diplopia, post concussion syndrome, vertigo, temproal arteritis, ANA. Cardiology Marylu GRIJALVA. Reports had Covid 19 last year and symptoms persisted. States does not take medication for DM, diet controlled. Hypothyroidism. She is doing well on her current dose of Synthroid. No results found for: TSH) COPD. states short of breath on exertion, not currently treating this She reports chronic mid back pain, increased over the last year present for [address] completed about 2 years ago. States she is not sure where. Notes that she goes to chiropractor and uses a TENS unit. Cannot consider staying Review of Systems Constitutional: Negative. Objective BP 110/68 Pulse (!) 49 Resp 16 Ht 162.6 cm (5' 4) Wt 88 kg (194 lb) SpO2 95% BMI 33.30 kg/m? Physical Exam Vitals and nursing note reviewed. Constitutional: Appearance: Normal appearance. HENT: Head: Normocephalic and atraumatic. Eyes: Conjunctiva/sclera: Conjunctivae normal. Neck: Thyroid: No thyromegaly. Vascular: Normal carotid pulses. No JVD. Cardiovascular: Rate and Rhythm: Normal rate and regular rhythm. Pulses: Carotid pulses are 2+ on the right side and 2+ on the left side. Radial pulses are 2+ on the right side and 2+ on the left side. Heart sounds: Normal heart sounds. Pulmonary: Effort: Pulmonary effort is normal. Breath sounds: Normal breath sounds. Abdominal: General: Bowel sounds are normal. Palpations: Abdomen is soft. Musculoskeletal: Right lower leg: No edema. Left lower leg: No edema. Skin: General: Skin is warm and dry. Neurological: General: No focal deficit present. Mental Status: She is alert and oriented to person, place, and time. ALLERGIES Allergen Reactions Alcohol All Antibiotics [Ot* All Pain Meds [Othe* Aspirin Betadine [Povidone-* Compazine [Prochlor* Anaphylaxis Ct Scan Dye [Other] Egg Unknown Latex Milk Nsaids (Non-Steroid* Anaphylaxis Soap Tylenol [Acetaminop* Vegetables [Other] Wheat Starch escitalopram oxalate (LEXAPRO) 20 mg tablet Take 20 mg by mouth once daily. omeprazole (PRILOSEC) 20 mg capsule Take 20 mg by mouth once daily. (Patient not taking: Reported on 02/13/2022 ) EPINEPHrine (EPIPEN) 0.3 mg/0.3 mL auto-injector as needed levothyroxine (LEVOXYL) 50 mcg tablet Take 3 tablets by mouth once daily. Take on empty stomach. For Thyroid. lorazepam (ATIVAN) 1 mg ORAL Tab half tablet a day PAST MEDICAL HISTORY Diagnosis Date Myalgia and myositis, unspecified 01/23/2007 Obesity, unspecified 01/23/2007 Palpitations 01/23/2007 Shortness of breath 01/23/2007 Unspecified hypothyroidism 01/23/2007 Unspecified sleep apnea 01/23/2007 Social History Tobacco Use Smoking status: Former Packs/day: 3.00 Years: 30.00 Pack years: 90.00 Types: Cigarettes Smokeless tobacco: Never Tobacco comments: quit 1994 Substance Use Topics Alcohol use: No ASSESSMENT/PLAN: 1. Routine medical exam - ICD (more content not included)... Normal [facility] No Panel InformationOrdered By: Dr. Love on 07-26-2022 Thyroid Stimulating Hormone (TSH) 3.06 uIU/mL 0.358-3.74 [facility] No Panel Informationon 05-13 Thyroid Stimulating Hormone (TSH) 4.09 uIU/mL 0.358-3.74 [facility] Work Phone: Absolute lymphocyte counton 05-01-2022 Lymphocytes Auto (Unsp spec) [#/Vol] 1.62 10*3/uL 0.83-4.51 [facility] Work Phone: Basophil percentageon 2021 Basophils/100 WBC (Bld) 1.0 % 0-1 [facility] Work Phone: Chloride [Moles/Vol] 107 mmol/L 98-107 [facility] Work Phone: Eosinophils/100 WBC (Bld) 3.4 % 0-5 [facility] Work Phone: Glucose [Mass/Vol] 139 mg/dL 74-106 [facility] Work Phone: Comment on above: Fasting Glucose resu lt greater than or equal to 126 mg/dL suggests DIABETES MELLITUS per A.D.A. criteria. Neutrophils (Bld) [#/Vol] 4.0 10*3/uL 2.0-7.7 [facility] Work Phone: [phone] Neutrophils/100 WBC (Bld) 59.3 % 47-70 [facility] Work Phone: [phone] Potassium [Moles/Vol] 4.2 mmol/L 3.5-5.1 [facility] Work Phone: [phone] Sodium [Moles/Vol] 140 mmol/L 136-145 [facility] Work Phone: [phone] WBC (Bld) [#/Vol] 6.7 10*3/uL 4.4-11.0 [facility] Work Phone: [phone] Blood erythrocytes count (nu mber/volume)on 05-01-2022 RBC (Bld) [#/Vol] 5.02 10*6/uL 4.2-5.4 [facility] Work Phone: [phone] Blood hemoglobin measurement (mass/volume)on 05-01-2022 Hemoglobin (Bld) [Mass/Vol] 14.8 g/dL 12.0-15.0 [facility] Work Phone: [phone] Blood lymphocytes/100 leukoc yteson 05-01-2022 Lymphocytes/100 WBC (Bld) 24.3 % 19-41 [facility] Work Phone: [phone] Blood monocytes/100 leukocyt eson 05-01-2022 Monocytes/100 WBC (Bld) 11.7 % 0-10 [facility] Work Phone: [phone] Blood platelet mean volumeon 05-01-2022 Platelet mean volume (Bld) [Entitic vol] 10.0 fL 6.2-12.0 [facility] Work Phone: [phone] Determination of erythrocyte mean corpuscular volume (MCV)on 05-01-2022 MCV (RBC) [Entitic vol] 90.2 fL 81-99 [facility] Work Phone: Hematocrit Auto (Bld) [Volum e fraction]on 05-01-2022 Hematocrit (Bld) [Volume fraction] 45.3 % 37-47 [facility] Work Phone: [phone] Laboratory - Chemistry and C hemistry - challengeon 05-01-2022 CO2 [Moles/Vol] 27.0 mmol/L 21.0-32.0 [facility] Work Phone: [phone] Lipase [Catalytic activity/Vol] 54 U/L 73-393 [facility] Work Phone: [phone] Urea nitrogen/Creatinine [Mass ratio] 29.2 mg/mg 10-20 [facility] Work Phone: [phone] Laboratory - Hematology and Cell countson 05-01-2022 Erythrocyte distribution width (RBC) [Entitic vol] 48.4 fL 35.1-43.9 [facility] Work Phone: [phone] Erythrocyte distribution width (RBC) [Ratio] 14.6 % 11.6-14.6 [facility] Work Phone: [phone] Immature granulocytes/100 WBC (Bld) 0.300 % 0.0-0.9 [facility] Work Phone: [phone] Comment on above: IG% - Immature Granu locytes (promyelocytes, myelocytes and metamyelocytes) > 1% indicates that a LEFT SHIFT is Present. MCH (RBC) [Entitic mass] 29.5 pg 27.0-32.0 [facility] Work Phone: [phone] Nucleated RBC/100 WBC (Bld) [Ratio] 0 % 0-5 [facility] Work Phone: [phone] MCHC Auto (RBC) [Mass/Vol]on 05-01-2022 MCHC (RBC) [Mass/Vol] 32.7 g/dL 32-36 [facility] Work [facility]: [phone] Panel Informationon 05-01 Troponin I High Sensitivity 5 pg/mL 3.0-54.0 [facility] Work Phone: [phone] Comment on above: Please Note: New [place]iff[place] t Units and Gender Specific Reference Ranges. For more information see Policy Stat Procedure [place] High Sensitivity Troponin (TNIH) and attachments. Estimated Creatinine Clearance Calc 45.56 ml/min [facility] Work Phone: Estimated GFR (MDRD) Amer 73 mL/min >60 [facility] Work Phone: Comment on above: GFR Calc Estimated GFR (MDRD) Non-Af Amer 60 mL/min >60 [facility] Work Phone: Comment on above: Non- GFR Calc Platelets bldon 05-01-2022 Platelets (Bld) [#/Vol] 207 10*3/uL 150-450 [facility] Work Phone: Serum or plasma calcium scotty urement (mass/volume)on 05-01-2022 Calcium [Mass/Vol] 9.1 mg/dL 8.5-10.1 [facility] Work Phone: Serum or plasma creatinine m easurement (mass/volume)on 05-01-2022 Creatinine [Mass/Vol] 0.96 mg/dL 0.55-1.02 [facility] Work Phone: Comment on above: The validity of the calculated GFR & GFRAA in patients over 70 years has not been determined. Clinical correlation is essential. Serum or plasma urea nitroge n measurement (mass/volume)on 05-01-2022 Urea nitrogen [Mass/Vol] 28 mg/dL 7-18 [facility] Work Phone: Thin prep Papanicolaou smear with manual screeningon 05-01-2022 Thin prep Papanicolaou smear with manual screening 6 5-15 [facility] Work Phone: No Panel Informationon 02-14 SARS-CoV-2 & FLU Antigen (Rapid) [facility] Work Phone: No Panel Informationon 02-13 [facility] Basophil percentageon 2021 Chloride [Moles/Vol] 105 mmol/L 98-107 [facility] Work Phone: [phone] Glucose [Mass/Vol] 101 mg/dL 74-106 [facility] Work Phone: Comment on above: Fasting Glucose resu lt from 100 to 125 mg/dL suggests IMPAIRED HOMEOSTASIS per A.D.A. criteria. Potassium [Moles/Vol] 4.1 mmol/L 3.5-5.1 [facility] Work Phone: [phone] Sodium [Moles/Vol] 138 mmol/L 136-145 [facility] Work Phone: [phone] WBC (Bld) [#/Vol] 5.7 10*3/uL 4.4-11.0 [facility] Work Phone: Blood erythrocytes count (nu mber/volume)on 12-15-2021 RBC (Bld) [#/Vol] 4.86 10*6/uL 4.2-5.4 [facility] Work Phone: [phone] Blood hemoglobin measurement (mass/volume)on 12-15-2021 Hemoglobin (Bld) [Mass/Vol] 14.2 g/dL 12.0-15.0 [facility] Work Phone: [phone] Blood platelet mean volumeon 12-15-2021 Platelet mean volume (Bld) [Entitic vol] 11.6 fL 6.2-12.0 [facility] Work Phone: [phone] Determination of erythrocyte mean corpuscular volume (MCV)on 12-15-2021 MCV (RBC) [Entitic vol] 90.5 fL 81-99 [facility] Work Phone: [phone] Hematocrit Auto (Bld) [Volum e fraction]on 12-15-2021 Hematocrit (Bld) [Volume fraction] 44.0 % 37-47 [facility] Work Phone: [phone] Iron measurement (mass/mass) on 12-15-2021 Iron (Unsp spec) [Mass/Mass] 71 ug/dL 50-170 [facility] Work Phone: [phone] Laboratory - Chemistry and C hemistry - challengeon 12-15-2021 CO2 [Moles/Vol] 30.0 mmol/L 21.0-32.0 [facility] Work Phone: Urea nitrogen/Creatinine [Mass ratio] 33.5 mg/mg 10-20 [facility] Work Phone: Laboratory - Hematology and Cell countson 12-15-2021 Erythrocyte distribution width (RBC) [Entitic vol] 46.5 fL 35.1-43.9 [facility] Work Phone: Erythrocyte distribution width (RBC) [Ratio] 13.8 % 11.6-14.6 [facility] Work Phone: [phone] MCH (RBC) [Entitic mass] 29.2 pg 27.0-32.0 [facility] Work Phone: MCHC Auto (RBC) [Mass/Vol]on 12-15-2021 MCHC (RBC) [Mass/Vol] 32.3 g/dL 32-36 [facility] Work Phone: No Panel Informationon 12-15 Estimated GFR (MDRD) Amer 86 mL/min >60 [facility] Work Phone: Comment on above: GFR Calc Estimated GFR (MDRD) Non-Af Amer 71 mL/min >60 [facility] Work Phone: Comment on above: Non- GFR Calc Parathyroid Hormone (Intact) 68.0 pg/mL 18.4-80.1 [facility] Work Phone: Total Iron Binding Capacity 328 ug/dL 250-450 [facility] Work Phone: Platelets bldon 12-15-2021 Platelets (Bld) [#/Vol] 154 10*3/uL 150-450 [facility] Work Phone: Serum or plasma calcium scotty urement (mass/volume)on 12-15-2021 Calcium [Mass/Vol] 8.8 mg/dL 8.5-10.1 [facility] Work Phone: Serum or plasma creatinine m easurement (mass/volume)on 12-15-2021 Creatinine [Mass/Vol] 0.84 mg/dL 0.55-1.02 [facility] Work Phone: Comment on above: The validity of the calculated GFR & GFRAA in patients over 70 years has not been determined. Clinical correlation is essential. Serum or plasma ferritin bronwyn surement (mass/volume)on 12-15-2021 Ferritin [Mass/Vol] 138 ng/mL 8-252 [facility] Work Phone: Serum or plasma iron saturat ion measurement (mass fraction)on 12-15-2021 Iron saturation [Mass fraction] 21.6 % 15.0-55.0 [facility] Work Phone: Serum or plasma urea nitroge n measurement (mass/volume)on 12-15-2021 Urea nitrogen [Mass/Vol] 28 mg/dL 7-18 [facility] Work Phone: Thin prep Papanicolaou smear with manual screeningon 12-15-2021 Thin prep Papanicolaou smear with manual screening 3 5-15 [facility] Work Phone: LABORATORYOrdered By: Saad Servin on 12-03-2021 Albumin BCP dye [Mass/Vol] 3.5 G/dL Invalid Interpretation Code 3.4 - 4.8 G/dL AO ADM SS Albumin/Globulin [Mass ratio] 1.1 {ratio} Invalid Interpretation Code 1.1 - 2.5 ratio AO ADM SS ALP [Catalytic activity/Vol] 101 U/L Invalid Interpretation Code 40 - 135 U/L AO ADM SS ALT With P-5'-P [Catalytic activity/Vol] 28 U/L Invalid Interpretation Code 14 - 59 U/L AO ADM SS AST With P-5'-P [Catalytic activity/Vol] 15 U/L Invalid Interpretation Code 10 - 40 U/L AO ADM SS Bilirubin [Mass/Vol] 0.3 mg/dL Invalid Interpretation Code 0.2 - 1.0 mg/dL AO ADM SS Calcium [Mass/Vol] 9.0 mg/dL Invalid Interpretation Code 8.4 - 10.2 mg/dL AO ADM SS Chloride [Moles/Vol] 105 mmol/L Invalid Interpretation Code 98 - 107 mmol/L AO ADM SS CO2 [Moles/Vol] 30 mmol/L Invalid Interpretation Code 23 - 31 mmol/L AO ADM SS Creatinine [Mass/Vol] 1.04 mg/dL Invalid Interpretation Code 0.55 - 1.02 mg/dL AO ADM SS Electrolyte Balance 7.0 mEq/L Invalid Interpretation Code 4.0 - 15.0 mEq/L AO ADM SS Free T3 [Mass/Vol] 2.03 pg/mL Invalid Interpretation Code 2.30 - 4.00 pg/mL AO ADM SS Free T4 [Mass/Vol] 1.04 ng/dL Invalid Interpretation Code 0.76 - 1.46 ng/dL AO ADM SS Globulin 3.3 G/dL Invalid Interpretation Code AO ADM SS Glucose [Mass/Vol] 77 mg/dL Invalid Interpretation Code 83 - 110 mg/dL AO ADM SS Iron [Mass/Vol] 87 ug/dL Invalid Interpretation Code 50 - 170 mcg/dL AO ADM SS Magnesium [Mass/Vol] 2.5 mg/dL Invalid Interpretation Code 1.8 - 2.4 mg/dL AO ADM SS Potassium [Moles/Vol] 4.4 mmol/L Invalid Interpretation Code 3.5 - 5.1 mmol/L AO ADM SS Protein [Mass/Vol] 6.8 G/dL Invalid Interpretation Code 6.4 - 8.2 G/dL AO ADM SS Sodium [Moles/Vol] 142 mmol/L Invalid Interpretation Code 136 - 145 mmol/L AO ADM SS TSH Qn 5.17 m[IU]/L Invalid Interpretation Code 0.36 - 3.74 mcIU/mL AO ADM SS Urea nitrogen [Mass/Vol] 34 mg/dL Invalid Interpretation Code 7 - 18 mg/dL AO ADM SS Urea nitrogen/Creatinine [Mass ratio] 33 ratio Invalid Interpretation Code 7 - 27 ratio AO ADM SS Vit. D 25-Hydroxy 23.2 ng/mL Invalid Interpretation Code AO ADM SS LABORATORYOrdered By: Donato Burt on 12-03-2021 Basophil, Absolute 0.10 103/mcL Invalid Interpretation Code 0.00 - 0.19 10^3/mcL AO Auto Heme SS Basophils/100 WBC (Bld) 1.3 % Invalid Interpretation Code 0.0 - 2.5 % AO Auto Heme SS Eosinophil, Absolute 0.20 103/mcL Invalid Interpretation Code 0.00 - 0.40 10^3/mcL AO Auto Heme SS Eosinophils/100 WBC (Bld) 3.1 % Invalid Interpretation Code 0.0 - 7.0 % AO Auto Heme SS Erythrocyte distribution width (RBC) [Ratio] 14.5 % Invalid Interpretation Code 11.5 - 14.5 % AO Auto Heme SS Hematocrit (Bld) [Volume fraction] 42.0 % Invalid Interpretation Code 37.0 - 47.0 % AO Auto Heme SS Hemoglobin (Bld) [Mass/Vol] 13.8 G/dL Invalid Interpretation Code 12.0 - 16.0 G/dL AO Auto Heme SS Lymphocyte, Absolute 1.70 103/mcL Invalid Interpretation Code 0.77 - 3.85 10^3/mcL AO Auto Heme SS Lymphocytes/100 WBC (Bld) 27.3 % Invalid Interpretation Code 10.0 - 50.0 % AO Auto Heme SS MCH (RBC) [Entitic mass] 28.8 pg Invalid Interpretation Code 27.0 - 31.2 pg AO Auto Heme SS MCHC (RBC) [Mass/Vol] 32.9 G/dL Invalid Interpretation Code 33.0 - 37.0 G/dL AO Auto Heme SS MCV (RBC) [Entitic vol] 87.8 fL Invalid Interpretation Code 80.0 - 94.0 fL AO Auto Heme SS Monocyte, Absolute 0.70 103/mcL Invalid Interpretation Code 0.15 - 1.00 10^3/mcL AO Auto Heme SS Monocytes/100 WBC (Bld) 10.7 % Invalid Interpretation Code 1.7 - 13.0 % AO Auto Heme SS Neutrophil, Absolute 3.50 103/mcL Invalid Interpretation Code 2.85 - 6.16 10^3/mcL AO Auto Heme SS Neutrophils/100 WBC (Bld) 57.6 % Invalid Interpretation Code 37.0 - 80.0 % AO Auto Heme SS Platelet mean volume (Bld) [Entitic vol] 9.5 fL Invalid Interpretation Code 7.4 - 10.4 fL AO Auto Heme SS Platelets (Bld) [#/Vol] 190 103/mcL Invalid Interpretation Code 130 - 400 10^3/mcL AO Auto Heme SS RBC (Bld) [#/Vol] 4.79 106/mcL Invalid Interpretation Code 4.20 - 5.40 10^6/mcL AO Auto Heme SS WBC (Bld) [#/Vol] 6.10 103/mcL Invalid Interpretation Code 4.60 - 10.80 10^3/mcL AO Auto Heme SS LABORATORYOrdered By: SYSTEM SYSTEM on 12-03-2021 Cobalamin (Vitamin B12) [Mass/Vol] 790 pg/mL Invalid Interpretation Code 211 - 911 pg/mL AH ADM SS Ferritin [Mass/Vol] 121.4 ng/mL Invalid Interpretation Code 8.0 - 252.0 ng/mL AH ADM SS Folate [Mass/Vol] 6.94 ng/mL Invalid Interpretation Code 5.38 - 24.00 ng/mL AH ADM SS GFR 63 ml/min/1.73sqm Invalid Interpretation Code AO Chemistry S GFR Non- 52 ml/min/1.73sqm Invalid Interpretation Code AO Chemistry S LABORATORYOrdered By: Isela Davis on 07-20-2021 C-Reactive Protein mg/dL Invalid Interpretation Code 0.0 - 0.9 mg/dL AO Chemistry S Calcium [Mass/Vol] 9.2 mg/dL Invalid Interpretation Code 8.4 - 10.2 mg/dL AO ADM SS Chloride [Moles/Vol] 105 mmol/L Invalid Interpretation Code 98 - 107 mmol/L AO ADM SS CO2 [Moles/Vol] 28 mmol/L Invalid Interpretation Code 23 - 31 mmol/L AO ADM SS Creatinine [Mass/Vol] 1.03 mg/dL Invalid Interpretation Code 0.55 - 1.02 mg/dL AO ADM SS Electrolyte Balance 8.0 mEq/L Invalid Interpretation Code AO ADM SS Glucose [Mass/Vol] 103 mg/dL Invalid Interpretation Code 83 - 110 mg/dL AO ADM SS Natriuretic peptide.B prohormone N-Terminal [Mass/Vol] 106 pg/mL Invalid Interpretation Code 0 - 125 pg/mL AO ADM SS Potassium [Moles/Vol] 4.7 mmol/L Invalid Interpretation Code 3.5 - 5.1 mmol/L AO ADM SS Sodium [Moles/Vol] 141 mmol/L Invalid Interpretation Code 136 - 145 mmol/L AO ADM SS TSH Qn 4.62 m[IU]/L Invalid Interpretation Code 0.36 - 3.74 mcIU/mL AO ADM SS Urea nitrogen [Mass/Vol] 26 mg/dL Invalid Interpretation Code 7 - 18 mg/dL AO ADM SS Urea nitrogen/Creatinine [Mass ratio] 25 ratio Invalid Interpretation Code 7 - 27 ratio AO ADM SS LABORATORYOrdered By: Saad Servin on 07-20-2021 ESR 15 minute reading (Bld) [Velocity] 11 mm/hr Invalid Interpretation Code 0 - 30 mm/hr AO Man Heme SS LABORATORYOrdered By: SYSTEM SYSTEM on 07-20-2021 GFR 63 ml/min/1.73sqm Invalid Interpretation Code AO Chemistry S GFR Non- 52 ml/min/1.73sqm Invalid Interpretation Code AO Chemistry S T4 [Mass/Vol] 9.0 ug/dL Invalid Interpretation Code 4.5 - 10.9 mcg/dL AH ADM SS No Panel Information SARS-CoV-2 & FLU Antigen (Rapid) [facility] Work Phone: Vital Signs Date Time Vital Sign Value Performing Clinician Facility 08-02-2023 14:48-0400 Body height 165.1 cm April Velasquez APRN.DRIVER RECRUITER Work Phone: [facility] 08-02-2023 14:48-0400 Body weight 84.46 kg April Velasquez APRN.DRIVER RECRUITER Work Phone: [facility] 08-02-2023 14:48-0400 Diastolic blood pressure 80 mm[Hg] April Velasquez APRN.DRIVER RECRUITER Work Phone: [facility] 08-02-2023 14:48-0400 Heart rate 59 /min April Velasquez APRN.DRIVER RECRUITER Work Phone: [facility] 08-02-2023 14:48-0400 SaO2% (BldA) [Mass fraction] 98 % April Velasquez APRN.DRIVER RECRUITER Work Phone: [facility] 08-02-2023 14:48-0400 Systolic blood pressure 112 mm[Hg] April Velasquez APRN.DRIVER RECRUITER Work Phone: [facility] 07-04-2023 16:00-0400 SaO2% (BldA) [Mass fraction] 95 % CORINNE PANDA [facility] Comment on above: Order Comment: Specimen Type: ARTERIAL B LOOD SPECIMEN Ordering Facility: [facility] Address: [address] [place] [id number] Performed By: #### A LLBG #### [facility] CLIA [id number] [address] [place] [address] [place] 07-01-2023 13:41-0400 Diastolic blood pressure 75 mm[Hg] Dae Bradshaw MD Work Phone: [facility] 07-01-2023 13:41-0400 Heart rate 58 /min Dae Bradshaw MD Work Phone: [facility] 07-01-2023 13:41-0400 Respiratory rate 16 /min Dae Bradshaw MD Work Phone: [facility] 07-01-2023 13:41-0400 SaO2% (BldA) [Mass fraction] 98 % Dae Bradshaw MD Work Phone: [facility] 07-01-2023 13:41-0400 Systolic blood pressure 151 mm[Hg] Dae Bradshaw MD Work Phone: [facility] 07-01-2023 12:41-0400 Body temperature 97.3 [degF] Dae Bradshaw MD Work Phone: [facility] 07-01-2023 10:55-0400 Body height 165.1 cm Dae Bradshaw MD Work Phone: [facility] 07-01-2023 10:55-0400 Body weight 86.18 kg Dae Bradshaw MD Work Phone: [facility] 07-01-2023 09:11-0400 Body height 165.1 cm Xochilt Pistone UNIX ANALYST.DRIVER RECRUITER Work Phone: [facility] 07-01-2023 09:11-0400 Body weight 86.36 kg Xochilt Pistone UNIX ANALYST.DRIVER RECRUITER Work Phone: [facility] 07-01-2023 09:11-0400 Diastolic blood pressure 70 mm[Hg] Xochilt Pistone UNIX ANALYST.DRIVER RECRUITER Work Phone: [facility] 07-01-2023 09:11-0400 Heart rate 54 /min Xochilt Pistone UNIX ANALYST.DRIVER RECRUITER Work Phone: [facility] 07-01-2023 09:11-0400 Respiratory rate 18 /min Xochilt Pistone UNIX ANALYST.DRIVER RECRUITER Work Phone: [facility] 07-01-2023 09:11-0400 Systolic blood pressure 118 mm[Hg] Xochilt Pistone UNIX ANALYST.DRIVER RECRUITER Work Phone: [facility] 06-17-2023 08:26-0400 Body height 165.[address] DIEGO MILLER MD [facility] 06-17-2023 08:26-0400 Body temperature 96.8 [degF] DR DIEGO MILLER MD [facility] 06-17-2023 08:26-0400 Body weight 86.[address] DIEGO MILLER MD [facility] 06-17-2023 08:26-0400 Body weight 31.7 kg/m2 DR DIEGO MILLER MD [facility] 06-17-2023 08:26-0400 Diastolic Blood Pressure Non-Invasive [address] DIEGO MILLER MD [facility] 06-17-2023 08:26-0400 Heart rate 44 /min DR DIEGO MILLER MD [facility] 06-17-2023 08:26-0400 Respiratory rate 13 /min DR DIEGO MILLER MD [facility] 06-17-2023 08:26-0400 Systolic Blood Pressure Non-Invasive [address] DIEGO MILLER MD [facility] 04-28-2023 17:00-0400 Diastolic blood pressure 83 mm[Hg] José Miguel Reis MD Work Phone: [facility] 04-28-2023 17:00-0400 Heart rate 78 /min José Miguel Reis MD Work Phone: [facility] 04-28-2023 17:00-0400 Respiratory rate 20 /min José Miguel Reis MD Work Phone: [facility] [employer] 04-28-2023 17:00-0400 SaO2% (BldA) [Mass fraction] 92 % José Miguel Reis MD Work Phone: [facility] 04-28-2023 17:00-0400 Systolic blood pressure 113 mm[Hg] José Miguel Reis MD Work Phone: [facility] [employer] 04-28-2023 15:18-0400 Body temperature 97 [degF] José Miguel Reis MD Work Phone: [facility] [employer] 04-28-2023 13:47-0400 Body height 165.1 cm José Miguel Reis MD Work Phone: [facility] [employer] 04-28-2023 13:47-0400 Body mass index (BMI) [Ratio] 32.12 kg/m2 José Miguel Reis MD Work Phone: [facility] [employer] 04-28-2023 13:47-0400 Body weight 87.54 kg José Miguel Reis MD Work Phone: [facility] [employer] 03-31-2023 14:23-0400 Body height 165.1 cm José Miguel Reis MD Work Phone: [facility] 03-31-2023 14:23-0400 Body mass index (BMI) [Ratio] 32.12 kg/m2 José Miguel Reis MD [facility] [facility] [employer] 03-31-2023 14:23-0400 Body weight 87.54 kg José Miguel Reis MD Work Phone: [facility] [employer] 03-31-2023 14:23-0400 Diastolic blood pressure 82 mm[Hg] José Miguel Reis MD Work Phone: [facility] [employer] 03-31-2023 14:23-0400 Heart rate 56 /min José Miguel Reis MD Work Phone: [facility] [employer] 03-31-2023 14:23-0400 Respiratory rate 14 /min José Miguel Reis MD Work Phone: [facility] [employer] 03-31-2023 14:23-0400 SaO2% (BldA) [Mass fraction] 97 % José Miguel Reis MD Work Phone: [facility] Comment on above: 03-31-2023 14:23-0400 Systolic blood pressure 128 mm[Hg] José Miguel Reis MD Work Phone: [facility] 03-30-2023 11:08-0400 Body height 165.1 cm Gabby Thomason MD Work Phone: [facility] 03-30-2023 11:08-0400 Body mass index (BMI) [Ratio] 32.28 kg/m2 Gabby Thomason MD Work Phone: [facility] 03-30-2023 11:08-0400 Body temperature 97.3 [degF] Gabby Thomason MD Work Phone: [facility] 03-30-2023 11:08-0400 Body weight 88 kg Gabby Thomason MD Work Phone: [facility] 03-30-2023 11:08-0400 Diastolic blood pressure 56 mm[Hg] Gabby Thomason MD Work Phone: [facility] 03-30-2023 11:08-0400 Heart rate 46 /min Gabby Thomason MD Work Phone: [facility] 03-30-2023 11:08-0400 Systolic blood pressure 103 mm[Hg] Gabby Thomason MD Work Phone: [facility] 03-29-2023 10:49-0400 Body height 165.[address] Corinne Panda Work Phone: [facility] 03-29-2023 10:49-0400 Body mass index (BMI) [Ratio] 32.1 kg/m2 Dr. Corinne Panda Work Phone: [facility] 03-29-2023 10:49-0400 Body temperature 98.2 [degF] Dr. Corinne Panda Work Phone: [facility] 03-29-2023 10:49-0400 Body weight 87.[address] Corinne Panda Work Phone: [facility] 03-29-2023 10:49-0400 Diastolic blood pressure 68 mm[Hg] Dr. Corinne Panda Work Phone: [facility] 03-29-2023 10:49-0400 Heart rate 47 /min Dr. Corinne Panda Work Phone: [facility] 03-29-2023 10:49-0400 Respiratory rate 16 /min Dr. Corinne Panda Work Phone: [facility] 03-29-2023 10:49-0400 SaO2% (BldA) [Mass fraction] 97 % Dr. Corinne Panda Work Phone: [facility] 03-29-2023 10:49-0400 Systolic blood pressure 107 mm[Hg] Dr. Corinne Panda Work Phone: [facility] 03-18-2023 09:24-0400 Body mass index (BMI) [Ratio] 32.3 kg/m2 Dr. Corinne Panda Work Phone: [facility] 03-18-2023 09:24-0400 Body temperature 97.4 [degF] Dr. Corinne Panda Work Phone: [facility] 03-18-2023 09:24-0400 Body weight 87.[address] Corinne Panda Work Phone: [facility] 03-18-2023 09:24-0400 Diastolic blood pressure 57 mm[Hg] Dr. Corinne Panda Work Phone: [facility] 03-18-2023 09:24-0400 Heart rate 53 /min Dr. Corinne Panda Work Phone: [facility] 03-18-2023 09:24-0400 Respiratory rate 18 /min Dr. Corinne Panda Work Phone: [facility] 03-18-2023 09:24-0400 SaO2% (BldA) [Mass fraction] 95 % Dr. Corinne Panda Work Phone: [facility] 03-18-2023 09:24-0400 Systolic blood pressure 114 mm[Hg] Dr. Corinne Panda Work Phone: [facility] 03-16-2023 12:29-0400 Diastolic blood pressure 64 mm[Hg] Dr. Corinne Panda Work Phone: [facility] 03-16-2023 12:29-0400 Heart rate 47 /min Dr. Corinne Panda Work Phone: [facility] 03-16-2023 12:29-0400 Respiratory rate 16 /min Dr. Corinne Panda Work Phone: [facility] 03-16-2023 12:29-0400 SaO2% (BldA) [Mass fraction] 94 % Dr. Corinne Panda Work Phone: [facility] 03-16-2023 12:29-0400 Systolic blood pressure 135 mm[Hg] Dr. Corinne Panda Work Phone: [facility] 03-16-2023 08:16-0400 Body mass index (BMI) [Ratio] 32.3 kg/m2 Dr. Corinne Panda Work Phone: [facility] 03-16-2023 08:16-0400 Body temperature 96.9 [degF] Dr. Corinne Panda Work Phone: [facility] 03-16-2023 08:16-0400 Body weight 87.[address] Corinne Panda Work Phone: [facility] 02-23-2023 07:13-0400 Body mass index (BMI) [Ratio] 31.4 kg/m2 Dr. Corinne Panda Work Phone: [facility] 02-23-2023 07:13-0400 Body temperature 97.8 [degF] Dr. Corinne Panda Work Phone: [facility] 02-23-2023 07:13-0400 Body weight 85.[address] Corinne Panda Work Phone: [facility] 02-23-2023 07:13-0400 Diastolic blood pressure 68 mm[Hg] Dr. Corinne Panda Work Phone: [facility] 02-23-2023 07:13-0400 Heart rate 46 /min Dr. Corinne Panda Work Phone: [facility] 02-23-2023 07:13-0400 Respiratory rate 18 /min Dr. Corinne Panda Work Phone: [facility] 02-23-2023 07:13-0400 SaO2% (BldA) [Mass fraction] 97 % Dr. Corinne Panda Work Phone: [facility] 02-23-2023 07:13-0400 Systolic blood pressure 157 mm[Hg] Dr. Corinne Panda Work Phone: [facility] 02-08-2023 10:34-0400 Body mass index (BMI) [Ratio] 32.1 kg/m2 Dr. Corinne Panda Work Phone: [facility] 02-08-2023 10:34-0400 Body temperature 97.1 [degF] Dr. Corinne Panda Work Phone: [facility] 02-08-2023 10:34-0400 Body weight 87.[address] Corinne Panda Work Phone: [facility] 02-08-2023 10:34-0400 Diastolic blood pressure 71 mm[Hg] Dr. Corinne Panda Work Phone: [facility] 02-08-2023 10:34-0400 Heart rate 53 /min Dr. Corinne Panda Work Phone: [facility] 02-08-2023 10:34-0400 Respiratory rate 148 /min Dr. Corinne Panda Work Phone: [facility] 02-08-2023 10:34-0400 SaO2% (BldA) [Mass fraction] 96 % Dr. Corinne Panda Work Phone: [facility] 02-08-2023 10:34-0400 Systolic blood pressure 110 mm[Hg] Dr. Corinne Panda Work Phone: [facility] 12-22-2022 13:00-0400 Diastolic Blood Pressure Non-Invasive 58 [address] [facility] 12-22-2022 13:00-0400 Heart rate 56 /min TIMI CONTRERAS MD [facility] 12-22-2022 13:00-0400 Systolic Blood Pressure Non-Invasive 101 [address] [facility] 12-22-2022 12:30-0400 Diastolic Blood Pressure Non-Invasive 53 [address] [facility] 12-22-2022 12:30-0400 Heart rate 51 /min TIMI CONTRERAS MD [facility] 12-22-2022 12:30-0400 Respiratory rate 18 /min TIMI CONTRERAS MD [facility] 12-22-2022 12:30-0400 Systolic Blood Pressure Non-Invasive 107 [address] [facility] 12-22-2022 12:03-0400 Diastolic Blood Pressure Non-Invasive 37 [address] [facility] 12-22-2022 12:03-0400 Heart rate 50 /min TIMI CONTRERAS MD [facility] 12-22-2022 12:03-0400 Systolic Blood Pressure Non-Invasive 140 [address] [facility] 12-22-2022 08:23-0400 Body height 164.5 cm TIMI CONTRERAS MD [facility] 12-22-2022 08:23-0400 Body temperature 97.7 [degF] TIMI CONTRERAS MD [facility] 12-22-2022 08:23-0400 Body weight 88.6 kg TIMI CONTRERAS MD [facility] 12-22-2022 08:23-0400 Body weight 32.74 kg/m2 TIMI CONTRERAS MD [facility] 12-22-2022 08:23-0400 Heart rate 50 /min TIMI CONTRERAS MD [facility] 10-31-2022 12:10-0500 Body height 165.[address] Corinne Panda Work Phone: [facility] 10-31-2022 12:10-0500 Body mass index (BMI) [Ratio] 31.9 kg/m2 Dr. Corinne Panda Work Phone: [facility] 10-31-2022 12:10-0500 Body temperature 97.8 [degF] Dr. Corinne Panda Work Phone: [facility] 10-31-2022 12:10-0500 Body weight 87.[address] Corinne Panda Work Phone: [facility] 10-31-2022 12:10-0500 Diastolic blood pressure 76 mm[Hg] Dr. Corinne Panda Work Phone: [facility] 10-31-2022 12:10-0500 Heart rate 59 /min Dr. Corinne Panda Work Phone: [facility] 10-31-2022 12:10-0500 Respiratory rate 18 /min Dr. Corinne Panda Work Phone: [facility] 10-31-2022 12:10-0500 SaO2% (BldA) [Mass fraction] 98 % Dr. Corinne Panda Work Phone: [facility] 10-31-2022 12:10-0500 Systolic blood pressure 153 mm[Hg] Dr. Corinne Panda Work Phone: [facility] 08-20-2022 10:47-0500 Body height 162.6 cm Dorothy Castro UNIX ANALYST.ANALYTICAL LEAD Work Phone: [facility] 08-20-2022 10:47-0500 Body weight 88 kg Dorothy Castro UNIX ANALYST.ANALYTICAL LEAD Work Phone: [facility] 08-20-2022 10:47-0500 Diastolic blood pressure 68 mm[Hg] Dorothy Castro UNIX ANALYST.ANALYTICAL LEAD Work Phone: [facility] 08-20-2022 10:47-0500 Heart rate 49 /min Dorothy Castro UNIX ANALYST.ANALYTICAL LEAD Work Phone: [facility] 08-20-2022 10:47-0500 Respiratory rate 16 /min Dorothy Castro UNIX ANALYST.ANALYTICAL LEAD Work Phone: [facility] 08-20-2022 10:47-0500 SaO2% (BldA) [Mass fraction] 95 % Dorothy Castro UNIX ANALYST.ANALYTICAL LEAD Work Phone: [facility] 08-20-2022 10:47-0500 Systolic blood pressure 110 mm[Hg] Dorothy Castro UNIX ANALYST.ANALYTICAL LEAD Work Phone: [facility] 05-01-2022 14:10-0400 Diastolic blood pressure 68 mm[Hg] [facility] Work Phone: 05-01-2022 14:10-0400 Heart rate 45 /min [facility] Work Phone: 05-01-2022 14:10-0400 Respiratory rate 16 /min [facility] Work Phone: 05-01-2022 14:10-0400 SaO2% (BldA) [Mass fraction] 98 % [facility] Work Phone: 05-01-2022 14:10-0400 Systolic blood pressure 147 mm[Hg] [facility] Work Phone: 05-01-2022 10:46-0400 Body height 165.1 cm [facility] Work Phone: 05-01-2022 10:46-0400 Body mass index (BMI) [Ratio] 32.1 kg/m2 [facility] Work Phone: 05-01-2022 10:46-0400 Body temperature 96.9 [degF] [facility] Work Phone: 05-01-2022 10:46-0400 Body weight 87.6 kg [facility] Work Phone: 02-14-2022 16:02-0400 Heart rate 54 /min [facility] Work Phone: 02-14-2022 16:02-0400 Respiratory rate 16 /min [facility] Work Phone: 02-14-2022 16:02-0400 SaO2% (BldA) [Mass fraction] 93 % [facility] Work Phone: 02-14-2022 15:03-0400 Body temperature 97.1 [degF] [facility] Work Phone: 02-14-2022 15:03-0400 Diastolic blood pressure 80 mm[Hg] [facility] Work Phone: 02-14-2022 15:03-0400 Systolic blood pressure 139 mm[Hg] [facility] Work Phone: 02-14-2022 15:00-0400 Body height 165.1 cm [facility] Work Phone: 02-14-2022 15:00-0400 Body mass index (BMI) [Ratio] 32.1 kg/m2 [facility] Work Phone: 02-14-2022 15:00-0400 Body weight 87.54 kg [facility] Work Phone: 02-13-2022 09:50-0400 SaO2% (BldA) [Mass fraction] 95 % Anya Older UNIX ANALYST.[facility] Work Phone: [facility] 02-13-2022 09:34-0400 Body temperature 99.39 [degF] Anya Older UNIX ANALYST.DRIVER RECRUITER Work Phone: [facility] 02-13-2022 09:34-0400 Body weight 87.54 kg Anya Older UNIX ANALYST.DRIVER RECRUITER Work Phone: [facility] 02-13-2022 09:34-0400 Diastolic blood pressure 86 mm[Hg] Anya Older UNIX ANALYST.DRIVER RECRUITER Work Phone: [facility] 02-13-2022 09:34-0400 Heart rate 59 /min Anya Older UNIX ANALYST.DRIVER RECRUITER Work Phone: [facility] 02-13-2022 09:34-0400 Respiratory rate 24 /min Anya Older UNIX ANALYST.DRIVER RECRUITER Work Phone: [facility] 02-13-2022 09:34-0400 Systolic blood pressure 122 mm[Hg] Anya Older UNIX ANALYST.DRIVER RECRUITER Work Phone: [facility] Encounters Encounter Date Encounter Type Care Provider Facility Start: 05-22-2025 ambulatory Corinne Panda Facil ity:[facility] Start: 05-13-2025 ambulatory Corinne Panda Facil [facility]y:[facility] Start: 02-26-2025 End: 02-26-2025 ambulatory Corinne Panda Facility:[facility] Start: 02-11-2025 End: 02-11-2025 ambulatory Corinne Panda Facility:[facility] Start: 11-27-2024 End: 11-27-2024 ambulatory Corinne Panda Facility:[facility] Start: 11-12-2024 End: 11-12-2024 ambulatory Corinne Panda Facility:[facility] Start: 11-05-2024 End: 11-05-2024 ambulatory Corinne Panda Facility:[facility] Start: 10-18-2024 End: 10-18-2024 ambulatory Jennifer Love Facility:[facility] Start: 09-11-2024 End: 09-11-2024 ambulatory Corinne Panda Facility:[facility] Start: 08-28-2024 ambulatory Corinne Panda Facil ity:[facility] Start: 08-28-2024 ambulatory Corinne Michael Sindy Facil ity:[facility] Start: 08-28-2024 End: 08-28-2024 [facility]ulatory [facility] Facility[facility] Start: 08-21-2024 End: 08-21-2024 ambulatory Tommy Chon Facility:[facility] Start: 08-16-2024 End: 08-16-2024 ambulatory Corinne Angy Panda Facility:[facility] Start: 08-08-2024 End: 08-08-2024 ambulatory Corinne Michael Sindy Facility:[facility] Start: 07-27-2024 End: 07-27-2024 ambulatory Charly Bruno Facility:[facility] Start: 05-29-2024 End: 05-30-2024 ambulatory Corinne Longer Facility:[facility] Start: 05-25-2024 End: 05-25-2024 ambulatory Corinne Longcarlita Panda Facility:[facility] Start: 04-23-2024 ambulatory MARYLU PEG UNIX ANALYST-DRIVER RECRUITER Facility:A Start: 02-28-2024 Telephone encounter Jessy plaza MD Work Phone: [facility] [place] Start: 01-18-2024 Telephone encounter Jessy plaza MD Work Phone: [facility] [place] Comment on above: Results Start: 01-06-2024 End: 01-06-2024 ambulatory CORINNE PANDA [facility] Start: 12-21-2023 End: 12-21-2023 ambulatory EMILY WO ID [facility] Facility:B Start: 12-21-2023 End: 12-21-2023 Patient encounter procedure MARYLU PEG UNIX ANALYST-DRIVER RECRUITER [facility] Start: 10-18-2023 End: 10-18-2023 ambulatory CORINNE PANDA [facility] Start: 09-19-2023 End: 09-19-[address] PIERCE LOVE MD Facility:[facility] Start: 09-19-2023 End: 09-19-[address] PIERCE LOVE MD [facility] Start: 08-03-2023 End: 08-04-2023 ambulatory CORINNE MNEGNNER Facility:[facility] Start: 08-03-2023 End: 08-03-2023 Subsequent hospital visit by physician [facility] Work Phone: Radiology Comment on above: Adenocarcinoma of le ft lung (HCC) [C34.92] Start: 08-02-2023 End: 08-02-2023 Patient encounter procedure April Velasquez APRN.DRIVER RECRUITER Work Phone: [facility] Comment on above: S/P lobectomy of gil g (Primary Dx); Adenocarcinoma of left lung (HCC); Acute post-operative pain; Anemia, unspecified type Start: 08-02-2023 End: 08-02-2023 ambulatory CORINNE Drummond SINDY Facility:[facility] Start: 08-02-2023 Telephone encounter Shade moon MD Work Phone: [facility] Comment on above: Referral Information Start: 08-01-2023 End: 08-01-[address] JENNIFER LOVE MD Facility:[facility] Start: 08-01-2023 End: 08-01-[address] JENNIFER LOVE MD [facility] Start: 07-28-2023 Telephone encounter Oleg larios APRN.DRIVER RECRUITER Work Phone: [facility] Comment on above: New Patient Start: 07-27-2023 Telephone encounter Shade moon MD Work Phone: [facility] Comment on above: Appointment (Offer S ooner) Start: 07-25-2023 Telephone encounter Warren Mendes APRN.DRIVER RECRUITER Work Phone: [facility] Start: 07-13-2023 End: 07-13-2023 Emergency department patient visit SAMIR WALKER MD Facility:[facility] Start: 07-11-2023 Telephone encounter Shade moon MD Work Phone: [facility] Comment on above: Patient Question (Wh en to change bandages and Home Care requested) Start: 07-04-2023 End: 07-09-2023 Evaluation and management of inpatient SHADE RILEY Facility:[facility] Start: 07-01-2023 ambulatory DAE Jaime ity:[facility] Start: 07-01-2023 End: 07-01-2023 Subsequent hospital visit by physician Dae Bradshaw MD Work Phone: [facility] Comment on above: RUQ pain [R10.11] Start: 07-01-2023 End: 07-01-2023 ambulatory XOCHILT LATOYA Facility:[facility] Start: 07-01-2023 End: 07-01-2023 Patient encounter procedure Xochilt Klein UNIX ANALYST.DRIVER RECRUITER Work Phone: [facility] Comment on above: Pre-operative exam ( Primary Dx); Multiple allergies; Adenocarcinoma of left lung (HCC) Start: 07-01-2023 End: 07-01-2023 Preprocedural examination done Xochilt Klein UNIX ANALYST.DRIVER RECRUITER Work Phone: [facility] Work Phone: Start: 06-29-2023 Preprocedural examination done April Velasquez UNIX ANALYST.DRIVER RECRUITER Work Phone: [facility] Work Phone: Start: 06-29-2023 Telephone encounter April giron UNIX ANALYST.DRIVER RECRUITER Work Phone: [place] [facility] Start: 06-28-2023 Preprocedural examination done Warren Mendes UNIX ANALYST.DRIVER RECRUITER Work Phone: [facility] Work Phone: Start: 06-28-2023 Telephone encounter Warren Mendes UNIX ANALYST.DRIVER RECRUITER Work Phone: [place] [facility] Start: 06-28-2023 Encounter for other preprocedural examination CORINNE PANDA [facility] Start: 06-28-2023 End: 06-29-2023 ambulatory WARREN MENDES Facility:[facility] Start: 06-28-2023 End: 06-28-2023 Subsequent hospital visit by physician [facility] [employer] [facility] Work Phone: Radiology Comment on above: RUQ pain [R10.11] Start: 06-27-2023 End: 06-27-2023 ambulatory Shade Riley MD Work Phone: [facility] Comment on above: Nurse practioner Start: 06-27-2023 Telephone encounter Dae Bradshaw MD Work Phone: [facility] Comment on above: Future Appointment Patient Question (Qu estion on CT scan and Nuclear Stress Test) Start: 06-27-2023 Encounter for other preprocedural examination XOCHILT KLEIN [facility] Start: 06-27-2023 End: 06-27-2023 Preprocedural examination done Dae Bradshaw MD Work Phone: [facility] Start: 06-27-2023 End: 06-27-2023 Subsequent hospital visit by physician Card Lab Nuclear Camera [facility] CARDIAC TESTING Comment on above: Shortness of breath [R06.02] Start: 06-24-2023 End: 06-24-2023 ambulatory WARREN MENDES Facility:[facility] Start: 06-24-2023 Telephone encounter Dae Bradshaw MD Work Phone: [facility] Comment on above: Opened In Error Start: 06-24-2023 End: 06-24-2023 Subsequent hospital visit by physician [facility] ([facility]Stat) Work Phone: Cat Scan Comment on above: Carcinoma, lung, lef t (HCC) [C34.92] Start: 06-23-2023 Telephone encounter Shade moon MD Work Phone: [facility] Comment on above: Requests return call Start: 06-22-2023 Telephone encounter Shade moon MD Work Phone: [facility] Comment on above: Future Appointment Received Outside [facility] Records Request for return c all Start: 06-21-2023 Telephone encounter Surinder quintanilla MD Work Phone: [place] [facility] Comment on above: Allergies (Anesthesi a Consult requested by Dr. Riley regarding anesthesia plan in setting of multiple relevant medication allergies) Start: 06-17-2023 End: 06-17-[address] DIEGO MILLER MD Facility: Start: 06-17-2023 End: 06-17-[address] DIEGO MILLER MD [facility] Start: 06-15-2023 Telephone encounter Shade moon MD Work Phone: [facility] Comment on above: Received Outside [facility] Records Start: 06-09-2023 Telephone encounter Shade moon MD Work Phone: [facility] Comment on above: Question (Surgery) Patient Update Start: 06-06-2023 Telephone encounter Shade moon MD Work Phone: [facility] Comment on above: Patient Question Start: 06-02-2023 Telephone encounter Xochilt pederson UNIX ANALYST.DRIVER RECRUITER Work Phone: [facility] Start: 06-01-2023 End: 06-01-2023 ambulatory CORINNE PANDA Facility:[facility] Start: 05-18-2023 Admission to [facility] Vladimir Joya UNIX ANALYST - DRIVER RECRUITER Work Phone: [facility] Cardiovascular & Thoracic Surgery Comment on above: Preoperative clearan ce (Primary Dx) Start: 05-18-2023 ambulatory Vladimir Joya UNIX ANALYST - DRIVER RECRUITER Work Phone: [facility]ovascular [facility] Thoracic Surgery Start: 05-18-2023 Preoperative state Vladimir liu UNIX ANALYST - DRIVER RECRUITER Work Phone: [facility] Work Phone: Start: 05-16-2023 Admission to [facility] Renea Loja UNIX ANALYST - DRIVER RECRUITER Work Phone: [facility] Thoracic Surgery Comment on above: Lung mass (Primary D x) Start: 05-16-2023 ambulatory Renea bowen UNIX ANALYST - DRIVER RECRUITER Work Phone: [facility] Thoracic Surgery Start: 05-11-2023 End: 05-12-2023 ambulatory [facility] Start: 05-05-2023 End: 05-05-2023 ambulatory JOSÉ MIGUEL [facility] Start: 05-05-2023 End: 05-05-2023 Phys/qhp telephone evaluation 21-30 min José Miguel Reis MD Work Phone: [facility] Pulmonary and Sleep Medicine Comment on above: Malignant neoplasm o f upper lobe of left lung (HCC) (Primary Dx); Mediastinal adenopathy; Multiple drug allergies; Laryngospasm; ANA (obstructive sleep apnea) Start: 04-28-2023 End: 04-28-2023 ambulatory JOSÉ MIGUEL [facility] Start: 04-28-2023 End: 04-28-2023 Subsequent hospital visit by physician José Miguel Reis MD Work Phone: [facility] Comment on above: Non-small cell lung cancer, unspecified laterality (HCC) Start: 04-19-2023 End: 04-20-2023 Phys/qhp telephone evaluation 11-20 min Jennifer Johnson MD Work Phone: [facility] Sleep [facility] Comment on above: Non-small cell lung cancer, unspecified laterality (HCC) (Primary Dx) Start: 04-18-2023 End: 04-20-2023 ambulatory JENNIFER JOHNSON [facility] Start: 04-18-2023 End: 04-18-2023 ambulatory [facility] Start: 04-15-2023 End: 04-16-2023 ambulatory [facility] Start: 04-15-2023 End: 04-15-2023 Subsequent hospital visit by physician Gabby Thomason MD Work Phone: [facility] Comment on above: Lung nodule Start: 04-13-2023 End: 04-13-[address] Corinne Panda Work Phone: [facility] Work Phone: Start: 04-13-2023 End: 04-13-[address] Corinne Panda Work Phone: [facility]-Cat Scan, [facility] Work Phone: Start: 04-06-2023 End: 04-06-2023 ambulatory JENNIFER JOHNSON [facility] Start: 04-05-2023 End: 04-05-[address] Corinne Panda Work Phone: [facility]-MRI - [facility] Work Phone: Start: 04-05-2023 End: 04-05-2023 Phys/qhp telephone evaluation 11-20 min Jennifer Johnson MD Work Phone: [facility] Pulmonary and Sleep Medicine Comment on above: Lung nodule Start: 04-04-2023 Telephone encounter José Miguel boucher MD Work Phone: [facility] Pulmonary and Sleep Medicine Comment on above: Care Coordination Start: 03-31-2023 End: 03-31-2023 ambulatory JOSÉ MIGUEL REIS [facility] Start: 03-31-2023 End: 03-31-2023 Office outpatient new 45 minutes José Miguel Reis MD Work Phone: [facility] Pulmonary and Sleep Medicine Comment on above: Malignant neoplasm o f upper lobe of left lung (HCC) (Primary Dx); Mediastinal adenopathy; Allergy to multiple drugs; Pulmonary nodule; Chronic obstructive pulmonary disease, unspecified COPD type (HCC) Start: 03-30-2023 End: 03-30-2023 ambulatory Blanca Alva RN [facility] Hem/Onc Comment on above: Nurse Navigation Start: 03-30-2023 Telephone encounter Luz Marina Dias RCP [facility] Cardiovascular & Thoracic Surgery Comment on above: Care Coordination (P ET Scheduling ) Start: 03-30-2023 End: 03-30-2023 Office consultation new/estab patient 80 min Gabby Thomason MD Work Phone: [facility] Cardiovascular & Thoracic Surgery Comment on above: Primary non-small ce ll 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 Corinne Panda Work Phone: [facility] Oncology Start: 03-29-2023 End: 03-29-[address] Corinne Panda Work Phone: [facility] Work Phone: Start: 03-18-2023 End: 03-18-[address] Corinne Panda Work Phone: [facility]-Pulmonary Medicine [facility] Work Phone: Start: 03-16-2023 End: 03-16-[address] Corinne Panda Work Phone: [facility] Work Phone: Start: 03-04-2023 End: 03-04-[address] Corinne Panda Work Phone: [facility] Work Phone: Start: 03-04-2023 End: 03-04-[address] Corinne Panda Work Phone: [facility] Work Phone: Start: 02-23-2023 End: 02-23-[address] Corinne Panda Work Phone: [facility]-Pulmonary Medicine [facility] Work Phone: Start: 02-08-2023 End: 02-08-[address] Corinne Panda Work Phone: [facility]-Pulmonary Medicine [facility] Work Phone: Start: 01-23-2023 End: 01-23-2023 ambulatory CORINNE PANDA Facility:[facility] Start: 01-21-2023 End: 01-21-2023 Patient encounter procedure TIMI CONTRERAS MD [facility] Start: 12-22-2022 End: 12-22-2022 Patient encounter procedure TIMI CONTRERAS MD [facility] Start: 12-03-2022 Telephone encounter Tracey jacques MD Work Phone: [facility] Neuroscience Comment on above: Sleep Study Start: 11-25-2022 Telephone encounter Tracey jacques MD Work Phone: [facility] Clinical Communication Comment on above: Chart notes request (Sleep study) Start: 11-17-2022 End: 11-17-2022 Patient encounter procedure TIMI CONTRERAS MD [facility] Start: 10-31-2022 End: 10-31-2022 Emergency department patient visit Dr. Corinne Panda Work Phone: [facility]-Emergency Department Start: 10-27-2022 Telephone encounter Tracey jacques MD Work Phone: [facility] Neurology [place] Comment on above: Advice Only Start: 10-20-2022 End: 10-20-2022 ambulatory JOE Isbell TALAMPAS Facility:[facility] Start: 10-18-2022 End: 10-18-2022 ambulatory [facility] Facility:[facility] Start: 10-18-2022 End: 10-18-2022 ambulatory Erajono Small PA-C Work Phone: [facility] Comment on above: Chronic mid back pascual n; Osteoporosis, unspecified osteoporosis type, unspecified pathological fracture presence Start: 10-18-2022 End: 10-18-2022 Telemedicine consultation with patient Era Sinha PA-C Work Phone: [facility] Start: 10-13-2022 End: 10-13-2022 Patient encounter procedure MARYLU GREENFIELD UNIX ANALYST-DRIVER RECRUITER [facility] Start: 09-01-2022 End: 09-01-[address] Corinne Panda Work Phone: [facility] Gastroenterology Start: 08-20-2022 End: 08-20-2022 ambulatory DOROTHY CASTRO Facility:[facility] Start: 08-20-2022 End: 08-20-2022 Patient encounter procedure Dorothy Chesters UNIX ANALYST.ANALYTICAL LEAD Work Phone: [facility] [place] Comment on above: Routine medical exam (Primary Dx); IFG (impaired fasting glucose); Chronic obstructive pulmonary disease, unspecified COPD type (HCC); Hypothyroidism, unspecified type; Encounter for immunization; Screening for diabetic retinopathy; Chronic obstructive lung disease (HCC); Special screening examination for viral disease; Screening for colon cancer; Need for shingles vaccine; Screening for osteoporosis; Asymptomatic menopause; Unspecified hypothyroidism; Chronic mid back pain; Osteoporosis, unspecified osteoporosis type, unspecified pathological fracture presence Start: 08-20-2022 End: 08-20-2022 Patient encounter status Dorothy Matthew PULLIAM.ANALYTICAL LEAD Work Phone: [facility] [place] Start: 07-26-2022 End: 07-26-2022 ambulatory [facility] Work Phone: Start: 07-26-2022 End: 07-26-2022 Patient encounter procedure [facility] Start: 06-02-2022 End: 06-02-[address] OCRINNE PANDA DO [facility] Start: 05-13-2022 End: 05-13-2022 Patient encounter procedure [facility] Start: 05-01-2022 End: 05-01-2022 Emergency department patient visit [facility]-Emergency Department Start: 05-01-2022 End: 05-01-2022 Patient encounter procedure Dae Romero UNIX ANALYST.DRIVER RECRUITER Work Phone: [facility] Comment on above: Chest pain, unspecif ied type (Primary Dx) Start: 02-14-2022 End: 02-14-2022 Emergency department patient visit [facility]-Emergency Department Start: 02-13-2022 End: 02-13-2022 Subsequent hospital visit by physician Federico [facility] Work Phone: Radiology Comment on above: Cough [R05.9] Start: 02-13-2022 End: 02-13-2022 Patient encounter procedure Anya Child UNIX ANALYST.DRIVER RECRUITER Work Phone: [facility] Comment on above: Cough (Primary Dx); SOB (shortness of breath) Start: 12-15-2021 End: 12-15-2021 Patient encounter procedure [facility] Start: 12-03-2021 End: 12-03-[address] CORINNE PADNA DO [facility] Start: 07-28-2021 End: 07-28-2021 Patient encounter procedure MARYLU GREENFIELD UNIX ANALYST-DRIVER RECRUITER [facility] Start: 07-20-2021 End: 07-20-2021 Patient encounter procedure MARYLU GREENFIELD UNIX ANALYST-DRIVER RECRUITER [facility] Start: 07-14-2021 End: 07-15-2021 Subsequent hospital visit by physician Tracey Marie MD Work Phone: [facility] Dept Procedures Date Procedure Procedure Detail Performing Clinician Start: 08-03-2023 Radiologic exam ches t 2 views [place] Mendes UNIX ANALYST.DRIVER RECRUITER Work Phone: Start: 07-04-[address] FR WANG LOVE MD Comment on above: Right upper lobe Start: 06-28-2023 Antibody screen CORINNE CLADERON Comment on above: Order Comment: Speci men Type: BLOOD SPECIMEN Ordering Facility: [facility] Address: [address] [place], [place] [id number] Performed By: #### T [id number] #### [facility] CLIA [id number] [facility] [place] [address] [place] Start: 06-28-2023 Us abdominal real ti me w/image limited Dae Bradshaw MD Work Phone: Start: 06-27-2023 Myocardial spect mul tiple studies Xochilt Klein UNIX ANALYST.DRIVER RECRUITER Work Phone: Start: 06-24-2023 Ct thorax w/o contra st material [place] Mendes UNIX ANALYST.DRIVER RECRUITER Work Phone: Start: 04-28-2023 End: 04-28-2023 [facility] ebus dx/tx intervention perph les José Miguel Reis MD Work Phone: Start: 04-28-2023 Glucose quantitative blood xcpt reagent strip José Miguel Reis MD Work Phone: Start: 04-15-[address] atten uation skull base mid-thigh Gabby Thomason MD Work Phone: Start: 04-13-2023 CT of head without contrast Dr. Corinne Panda Work Phone: Start: 04-05-2023 MRI of brain without contrast Dr. Corinne Panda Work Phone: Start: 03-16-2023 Plain chest X-ray Dr. Laura Panda Work Phone: Start: 03-16-2023 Plain chest X-ray Dr. Laura Panda Work Phone: Start: 03-16-2023 Biopsy/Inj or Needle Placement Dr. Corinne Panda Work Phone: Start: 10-31-2022 Plain X-ray of shoulder Dr. Corinne Panda Work Phone: Start: 05-01-2022 Plain chest X-ray Start: 02-14-2022 SARS-CoV-2 & FLU Ant igen (Rapid) Start: 02-13-2022 Radiologic exam ches t 2 views Anya Older UNIX ANALYST.DRIVER RECRUITER Work Phone: Start: 09-15-2018 Adult depression scr eening assessment Anya Older UNIX ANALYST.DRIVER RECRUITER Work Phone: Cholecystectomy MARYLU GREENFIELD UNIX ANALYST-DRIVER RECRUITER Hysterectomy MARYLU GREENFIELD AP RN-DRIVER RECRUITER Jaw injury (disorder) DR ROBIN MILLER MD Comment on above: 1970 SARS-CoV-2 & FLU Ant igen (Rapid) Plan of Treatment Date Care Activity Detail Author Start: 06-10-2024 Influenza vaccination [facility] Start: 03-09-2024 End: 03-09-2024 Patient encounter procedure 03/09/2024 10:00 AM EDT Office Visit [facility] [address] [place] [address] Jessy Roy MD [address] [place], [place] [id number] 2 month follow up [facility] Comment on above: 2 month follow up Start: 10-10-2023 Advance Directive Discussion Advance Directive Discussion [facility] Start: 10-10-2023 Behavioral Health Screening Behavioral Health Screening [facility] Start: 08-20-2023 ANNUAL PCP TEAM CHRONIC DISEASE VISIT ANNUAL PCP TEAM CHRONIC DISEASE VISIT [facility] Start: 08-20-2023 COVID-19 VACCINE (#1) COVID-19 VACCINE (#1) [facility] Comment on above: Postponed from 1947 (Declined at t his time) Start: 08-20-2023 Pneumococcal Vaccine: 65+ (1 - PCV) Pneumococcal Vaccine: 65+ (1 - PCV) [facility] Comment on above: Postponed from 1953 (Declined at t his time) Start: 08-20-2023 PNEUMOCOCCAL: 65+ (1 - PCV) PNEUMOCOCCAL: 65+ (1 - PCV) [facility] Comment on above: Postponed from 1953 (Declined at t his time) Start: 08-20-2023 SHINGRIX VACCINE (1 of 2) SHINGRIX VACCINE (1 of 2) [facility] Comment on above: Postponed from 1997 (Declined at t his time) Start: 08-05-2023 End: 08-05-2023 Patient encounter procedure 08/05/2023 2:45 PM EDT Office Visit [facility] Pulmonary and Sleep Medicine [address] [place] [phone] Abdias Ruelas MD [address] [place] [address] [facility] Pulmonary [facility] Sleep Medicine Start: 08-03-2023 End: 11-02-2023 CBC panel - Blood by Automated count CBC Lab Routine Anemia, unspecified type Expected: 08/03/2023, Expires: 11/02/2023 [facility] Work Phone: Comment on above: Expected: 08/03/2023, Expires: 4 Start: 08-02-2023 End: 11-01-2023 Basic metabolic 2000 panel - Serum or Plasma BASIC METABOLIC PNL Lab Routine S/P lobectomy of lung Expected: 08/02/2023, Expires: 11/01/2023 [facility] Work Phone: Comment on above: Expected: 08/02/2023, Expires: 4 Start: 06-28-2023 End: 08-28-2023 TYPE AND SCREEN,30 DAY [facility] Work Phone: Comment on above: Expected: 06/28/2023, Expires: 3 Start: 06-15-2023 End: 06-15-2023 Admission to same day surgery center 06/15/2023 12:00 PM EDT - 06/15/2023 4:00 PM EDT Surgery [facility] [address] [place] [phone] Gabby Thomason MD [address] [place] [address] ROBOTIC (XI) LEFT UPPER LOBECTOMY [14254 (CPT )] [facility] Comment on above: ROBOTIC (XI) LEFT UPPER LOBECTOMY [40987 (CPT )] Start: 06-15-2023 Subsequent hospital visit by physician 06/15/2023 12:00 PM EDT Hospital Encounter [facility] [address] [place] [address] Gabby Thomason MD [address] [place] [address] [address] [place], [place] [phone] [facility] MAIN OR Start: 06-15-2023 End: 06-15-2023 Thoracoscopy w/exc mediastinal cyst tumor/mass ROBOTIC (XI) ASSISTED THORACOSCOPY WITH EXCISION MEDIASTINAL CYST Malignant neoplasm of unspecified part of left bronchus or lung (HCC) 06/15/2023 12:00 PM EDT [facility] Operating Room Start: 06-15-2023 End: 06-15-2023 Thoracoscopy w/lobectomy single lobe ROBOTIC (XI) THORACOSCOPY WITH LOBECTOMY TOTAL OR SEGMENTAL Malignant neoplasm of unspecified part of left bronchus or lung (HCC) 06/15/2023 12:00 PM EDT [facility] Operating Room Start: 06-10-2023 Covid-19 Vaccine ( season) Covid-19 Vaccine ( season) [facility] Start: 06-10-2023 Influenza vaccination [facility] Start: 06-08-2023 End: 06-08-2023 Admission to establishment 06/08/2023 2:30 PM EDT Pre-Admission Testing [facility] Pre-Admit Testing [address] [place] [address] [facility] Pre-Admit Testing Start: 05-18-2023 End: 07-18-2023 Basic metabolic 1998 panel - Serum or Plasma Basic metabolic panel Lab Routine Preoperative clearance Expected: 05/18/2023, Expires: 07/18/2023 [facility] Work Phone: Comment on above: Expected: 05/18/2023, Expires: Start: 05-18-2023 End: 07-18-2023 Blood type and Crossmatch panel - Blood Type and Screen Lab Routine Preoperative clearance Expected: 05/18/2023, Expires: 07/18/2023 [facility] Comment on above: Expected: 05/18/2023, Expires: Start: 05-18-2023 End: 07-18-2023 CBC panel - Blood by Automated count CBC Lab Routine Preoperative clearance Expected: 05/18/2023, Expires: 07/18/2023 [facility] Comment on above: Expected: 05/18/2023, Expires: Start: 05-18-2023 End: 07-18-2023 ECG 12 lead ECG 12 lead CV ECG Routine Preoperative clearance Expected: 05/18/2023, Expires: 07/18/2023 [facility] Comment on above: Expected: 05/18/2023, Expires: Start: 05-18-2023 End: 07-18-2023 XR Chest 2 Views XR chest 2 views Imaging Routine Preoperative clearance Expected: 05/18/2023, Expires: 07/18/2023 [facility] Comment on above: Expected: 05/18/2023, Expires: Start: 05-11-2023 End: 05-11-2023 Patient encounter procedure 05/11/2023 11:30 AM EDT Office Visit [facility] Cardiovascular & Thoracic Surgery [address] [place] [phone] Gabby Thomason MD [address] [place] [address] [address] [place] [address] [facility] Cardiovascular & Thoracic Surgery Start: 05-05-2023 End: 05-05-2023 Patient encounter procedure 05/05/2023 9:45 AM EDT Office Visit [facility] Pulmonary and Sleep Medicine [address] [place] [phone] José Miguel Reis MD [address] [facility] [address] [place] [address] [facility] Pulmonary and Sleep Medicine Start: 04-28-2023 End: 04-28-2023 Admission to same day surgery center 04/28/2023 1:30 PM EDT - 04/28/2023 3:00 PM EDT Surgery [facility] [address] [place] [address] José Miguel Reis MD [address] [place], [place] [id number] EBUS WITH XRAY [36290 (CPT )] [facility] Comment on above: EBUS WITH XRAY [15304 (CPT )] Start: 04-28-2023 End: 04-28-2023 [facility] ebus dx/tx intervention perph les BRONCH EBUS IVNTJ PERPH LES Non-small cell lung cancer, unspecified laterality (HCC) 04/28/2023 1:30 PM EDT [facility] Gastroenterology Start: 04-28-2023 Subsequent hospital visit by physician 04/28/2023 1:30 PM EDT Hospital Encounter [facility] [address] [place] [address] José Miguel Reis MD [address] [facility] [address] [place], [place] [phone] [facility] Start: 04-19-2023 End: 04-19-2023 Patient encounter procedure 04/19/2023 12:00 PM EDT Office Visit [facility] Pulmonary and Sleep Medicine [address] [place] [phone] Jennifer Johnson MD [address] [place], [place] [phone] [facility] Pulmonary and Sleep Medicine Start: 04-15-2023 End: 04-15-2023 Patient encounter procedure 04/15/2023 7:45 AM EDT Appointment [facility] [address] [place] [address] Gabby Thomason MD [address] [facility] [address] [place], [place] [phone] [facility] Start: 04-08-2023 Influenza vaccination INFLUENZA (#1) [facility] Comment on above: Postponed from 06/10/2022 (Declined at t his time) Start: 04-04-2023 End: 04-04-2023 Patient encounter procedure 04/04/2023 7:00 AM EDT Appointment [facility] [address] [place] [phone] [facility] Start: 03-31-2023 End: 03-31-2023 Patient encounter procedure 03/31/2023 2:30 PM EDT Office Visit [facility] Pulmonary and Sleep Medicine [address] [place] [phone] José Miguel Reis MD [address] [place] [address] [facility] Pulmonary [facility] Sleep Medicine Start: 03-18-2023 Patient referral [facility] Work Phone: Start: 03-16-2023 CORE NDL BX LNG/MED PERQ CORE NDL BX LNG/MED PERQ [facility] Start: 03-16-2023 Following clinical pathway protocol [facility] Start: 03-16-2023 Catheterization of vein [facility] Start: 03-16-2023 Oxygen therapy [facility] Start: 03-16-2023 Patient discharge [facility] Start: 03-16-2023 Vital signs measurements [facility] Start: 12-23-2022 End: 12-23-2022 Patient encounter procedure 12/23/2022 Office Visit Neurology Tracey Marie MD [address] [place] [address] [facility] Neurology [place] Start: 10-10-2022 ADVANCE DIRECTIVE DISCUSSION ADVANCE DIRECTIVE DISCUSSION [facility] Start: 10-10-2022 DEPRESSION ASSESSMENT DEPRESSION ASSESSMENT [facility] Start: 08-20-2022 End: 10-20-2022 Alpha 1 antitrypsin [Mass/volume] in Serum or Plasma [id number] Lab Routine Chronic obstructive pulmonary disease, unspecified COPD type (HCC) Expected: 08/20/2022, Expires: 10/20/2022 [facility] Work Phone: Comment on above: Expected: 08/20/2022, Expires: 3 Start: 08-20-2022 End: 10-20-2022 CBC W Auto Differential panel - Blood CBC + DIFF Lab Routine IFG (impaired fasting glucose) Expected: 08/20/2022, Expires: 10/20/2022 [facility] Work Phone: Comment on above: Expected: 08/20/2022, Expires: 3 Start: 08-20-2022 End: 10-20-2022 Comprehensive metabolic 2000 panel - Serum or Plasma COMP METABOLIC PANEL Lab Routine IFG (impaired fasting glucose) Expected: 08/20/2022, Expires: 10/20/2022 [facility] Work Phone: Comment on above: Expected: 08/20/2022, Expires: 3 Start: 08-20-2022 End: 10-20-2022 Hemoglobin A1c in Blood HGB A1C Lab Routine IFG (impaired fasting glucose) Expected: 08/20/2022, Expires: 10/20/2022 [facility] Work Phone: Comment on above: Expected: 08/20/2022, Expires: 3 Start: 08-20-2022 End: 10-20-2022 Hepatitis C virus Ab [Presence] in Serum HEP C AB IA W/CONF SCRN Lab Routine Special screening examination for viral disease Expected: 08/20/2022, Expires: 10/20/2022 [facility] Work Phone: Comment on above: Expected: 08/20/2022, Expires: 3 Start: 08-20-2022 End: 10-20-2022 Lipid 1996 panel - Serum or Plasma LIPID PANEL BASIC Lab Routine IFG (impaired fasting glucose) Expected: 08/20/2022, Expires: 10/20/2022 [facility] Work Phone: Comment on above: Expected: 08/20/2022, Expires: 3 Start: 08-20-2022 End: 10-20-2022 Thyrotropin [Units/volume] in Serum or Plasma TSH BLD Lab Routine Hypothyroidism, unspecified type Expected: 08/20/2022, Expires: 10/20/2022 [facility] Work Phone: Comment on above: Expected: 08/20/2022, Expires: 3 Start: 06-10-2022 Influenza vaccination [facility] Start: 05-01-2022 [facility] Start: 02-13-2022 End: 02-27-2022 SARS-CoV-2 (COVID-19) RNA [Presence] in Respiratory specimen by RUDDY with probe detection 2019 [facility] Microbiology Routine Cough SOB (shortness of breath) Expected: 02/13/2022, Expires: 02/27/2022 [facility] Work Phone: Comment on above: Expected: 02/13/2022, Expires: 2 Start: 10-10-2021 ADVANCE DIRECTIVE DISCUSSION ADVANCE DIRECTIVE DISCUSSION [facility] Start: 06-10-2021 Influenza vaccination Flu vaccine (#1) [facility] Work Phone: Start: 09-15-2019 Adult depression screening assessment DEPRESSION SCREENING [facility] Start: 09-15-2019 ANNUAL PCP TEAM CHRONIC DISEASE VISIT ANNUAL PCP TEAM CHRONIC DISEASE VISIT [facility] Start: 01-24-2012 LIPID SCREEN LIPID SCREEN [facility] Start: 01-09-2012 BONE DENSITY BONE DENSITY [facility] Start: 01-09-2012 Bone Density Screening Bone Density Screening [facility] Start: 01-09-2012 Pneumococcal 65+ years Vaccine (1 of 1 - PPSV23) Pneumococcal 65+ years Vaccine (1 of 1 - PPSV23) [facility] Work Phone: Start: 01-09-2012 PNEUMOCOCCAL: 65+ (1 - PCV) PNEUMOCOCCAL: 65+ (1 - PCV) [facility] Start: 01-09-2012 PNEUMOVAX AGE 65 AND OVER WITH 5YR LOOKBACK (#1) PNEUMOVAX AGE 65 AND OVER WITH 5YR LOOKBACK (#1) [facility] Start: 01-09-2012 Screening for osteoporosis Bone Density Screening [facility] Start: 01-23-2010 DIABETES SCREEN DIABETES SCREEN [facility] Start: 01-24-2008 Hepatitis B surface antibody level LDL CHOLESTEROL [facility] Start: 2007 Hepatitis B Vaccine (1 of 3 - Risk 3-dose series) Hepatitis B Vaccine (1 of 3 - Risk 3-dose series) [facility] Start: 2007 RSV Immunization aged 60 or older (1 - 1-dose 60+ series) RSV Immunization aged 60 or older (1 - 1-dose 60+ series) [facility] Start: 2007 RSV Vaccine (1 - 1-dose 60+ series) RSV Vaccine (1 - 1-dose 60+ series) [facility] Start: 2002 Screening for osteoporosis DEXA (modify frequency per FRAX score) [facility] Work Phone: Start: 1997 Screening for malignant neoplasm of breast Breast cancer screen [facility] Work Phone: Start: 1997 Shingles Vaccine (1 of 2) Shingles Vaccine (1 of 2) [facility] Work Phone: Start: 1997 SHINGRIX VACCINE (1 of 2) SHINGRIX VACCINE (1 of 2) [facility] Start: 1997 Zoster Vaccines (1 of 2) Zoster Vaccines (1 of 2) [facility] Start: 01-09-1992 COLOGUARD (FIT-DNA) COLOGUARD (FIT-DNA) [facility] Start: 01-09-1992 Colonoscopy COLONOSCOPY [facility] Start: 01-09-1992 COLORECTAL CANCER SCREENING COLORECTAL CANCER SCREENING [facility] Start: 01-09-[address] COLONOGRAPHY [facility] Start: 01-09-1992 FECAL OCCULT BLOOD FECAL OCCULT BLOOD [facility] Start: 01-09-1992 Screening for malignant neoplasm of colon Colon cancer screen colonoscopy [facility] Work Phone: Start: 01-09-1992 SIGMOIDOSCOPY SIGMOIDOSCOPY [facility] Start: 1987 Lipid panel Lipid screen [facility] Work Phone: Start: 1977 Zoledronic acid therapy ALPHA-1 ANTITRYPSIN DEFICIENCY SCREENING [facility] Start: 1966 DTaP/Tdap/Td vaccine (1 - Tdap) DTaP/Tdap/Td vaccine (1 - Tdap) [facility] Work Phone: Start: 1966 DTaP/Tdap/Td Vaccines (1 - Tdap) DTaP/Tdap/Td Vaccines (1 - Tdap) [facility] Start: 1966 Urine microalbumin profile [facility] Start: 1966 Urine screening for protein Diabetes: Urine Protein Screening [facility] Start: 1965 HEPATITIS C SCREENING HEPATITIS C SCREENING [facility] Start: 1965 Hepatitis C screening Hepatitis C Screening [facility] Start: 1965 SPIROMETRY SPIROMETRY [facility] Start: 1959 COVID-19 Vaccine (1) COVID-19 Vaccine (1) [facility] Work Phone: Start: 1959 Depression Screening Depression Screening [facility] Start: 1957 Diabetic foot examination Diabetes: Foot Exam [facility] Start: 1957 Glaucoma screening Diabetes: Retinopathy Screening [facility] Start: 1957 Preventive dental service Diabetes: Dental Exam [facility] Start: 1953 Pneumococcal Vaccine: 65+ (1 of 2 - PCV) Pneumococcal Vaccine: 65+ (1 of 2 - PCV) [facility] Start: 1953 Pneumococcal Vaccine: 65+ Years (1 - PCV) Pneumococcal Vaccine: 65+ Years (1 - PCV) [facility] Start: 1953 Pneumococcal Vaccine: 65+ Years (1 of 2 - PCV) Pneumococcal Vaccine: 65+ Years (1 of 2 - PCV) [facility] Start: 01-09-1952 COVID-19 VACCINE (1) COVID-19 VACCINE (1) [facility] Start: 01-09-1952 Hemoglobin A1c measurement HbA1C [facility] Start: 01-09-1952 Hemoglobin A1c/Hemoglobin.total in Blood HBA1C [facility] Start: 1947 COVID-19 VACCINE (#1) COVID-19 VACCINE (#1) [facility] Start: 1947 Hemoglobin A1c measurement Diabetes: Hemoglobin A1C [facility] Start: 1947 Hepatitis B Vaccines (1 of 3 - 3-dose series) Hepatitis B Vaccines (1 of 3 - 3-dose series) [facility] Start: 1947 Hepatitis C screening Hepatitis C screen [facility] Work Phone: Start: 1947 Lipid panel Lipid Panel [facility] Start: 1947 Medicare Annual Wellness (AWV) Medicare Annual Wellness (AWV) [facility] Start: 1947 Screening for malignant neoplasm of colon [facility] Start: 1947 Screening for osteoporosis Bone Density Scan [facility] Start: 1947 Thyroid stimulating hormone measurement TSH Level [facility] Brnschsc tndsc ebus dx/tx intervention perph les BRONCH EBUS IVNTJ PERPH LES Non-small cell lung cancer, unspecified laterality (HCC) [facility] End: 09-19-2023 Dxa bone density study 1/> sites axial skel DXA-AXIAL SKELETON Radiology Routine Chronic mid back pain Osteoporosis, unspecified osteoporosis type, unspecified pathological fracture presence 1 Occurrences starting 08/20/2022 until 09/19/2023 [facility] Work Phone: Comment on above: 1 Occurrences starting 08/20/2022 until 09/19/2023 Fine needle aspiration [facility] Work Phone: Comment on above: Release Upon Ordering for 1 Occurrences starting 04/28/2023 OUTSIDE PROCEDURE SCAN OUTSIDE P ROCEDURE SCAN Procedures Ordered: 04/15/2023 [facility] Comment on above: Ordered: 04/15/2023 Patient Education [facility] Work Phone: Patient referral [facility] Work Phone: End: 11-17-2023 Radex entir thrc lmbr crv sac spi w/skull 2/3 vw XR SCOLIOSIS PA STAND/LAT 2V Radiology Routine Chronic mid back pain Osteoporosis, unspecified osteoporosis type, unspecified pathological fracture presence 1 Occurrences starting 10/18/2022 until 11/17/2023 [facility] Work Phone: Comment on above: 1 Occurrences starting 10/18/2022 until 11/17/2023 SURGICAL PATHOLOGY [facility] Work Phone: Comment on above: Release Upon Ordering for 1 Occurrences starting 07/01/2023 Tdap vaccine 7 yrs/> im TDAP VAC CINE AGE 7+ IM Immunization/Injection Routine Encounter for immunization Ordered: 08/20/2022 [facility] Work Phone: Comment on above: Ordered: 08/20/2022 [facility] Immunizations Immunization Date Immunization Notes Care Provider Fa lemuel NEGATED: Highlighted row has not occurred!08-20-2022 tetanus toxoid, reduced diphtheria toxoid, and acellular pertussis vaccine, adsorbed 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 2022 Medicaid [id number] 2022 Private Health Insurance [id number] 2018 Private Health Insurance [facility] [id number] 2012 Unknown [id number]. [id number] 2012 Unknown [employer] [place] [place] MEDICARE SUPPLEMENT [id number] 2012-Present [phone] [id number] [place] [id number] Indemnity [id number]. [id number] 1998 Medicare MEDICARE MEDICAR E A AND B [id number] 1998-Present [phone] [address] [address] [place] [address] Medicare [id number] 1998 Medicare [id number] [id number]. [id number] 1998 Medicare [id number] [id number]. [id number] 1998 Medicare [id number] 1947 Unknown [id number] 2.16840.1.502473.3.579.2. 627 1947 Unknown [id number] 2.840.1.015277.3.579.2. 627 1947 Unknown [id number] 2.840.1.285033.3.579.2. 62 1947 Unknown [id number] 2.840.1.856240.3.579.2. 627 1947 Unknown [id number] 2.840.1.853955.3.579.2 627 1947 Unknown [id number] 2.840.1.738763.3.579.2. 627 1947 Unknown [id number] 2.16840.1.244231.3.579.2. 627 Unknown [id number] 2.16840.1.257391.3.579.2. 462 Unknown [id number] 2.16.840.1.478361.3.579.2. 462 Unknown [id number] 2.16840.1.695574.3.579.2. 462 Unknown [id number] 2.16840.1.947031.3.579.2. 462 Unknown [id number] 2.16840.1.067243.3.579.2. 462 Unknown [id number] 2.16.840.1.755125.3.579.2. 462 Unknown [id number] 2.16.840.1.354765.3.579.2. 462 Unknown [id number] 2.16.840.1.855216.3.579.2. 462 Unknown [id number] 2.16.840.1.975611.3.579.2. 462 Unknown [id number] 2.16.840.1.936498.3.579.2. 462 Unknown [id number] 2.16.840.1.301439.3.579.2. 462 Unknown [id number] 2.16.840.1.044103.3.579.2. 462 Unknown [id number] 2.16.840.1.781505.3.579.2. 462 Unknown [id number] 2.16.840.1.280325.3.579.2. 462 Unknown [id number] 2.16.840.1.084770.3.579.2. 462 Unknown [id number] 2.16.840.1.923763.3.579.2. 462 Unknown [id number] 2.16.840.1.968816.3.579.2. 462 Unknown [id number] 2.16840.1.270417.3.579.2. 462 Unknown [id number] 2.16840.1.277397.3.579.2. 462 Social History Date Type Detail Facility Start: 04-08-2021 End: 06-01-[address] [facility] Former smoker [employer] Phone: Start: 10-10-1963 End: 10-10-1994 History of tobacco use Current smoker [facility] Start: 04-08-2021 End: 06-01-2023 Tobacco use and exposure Never used [facility] Start: 04-08-2021 End: 06-09-2022 Alcohol intake Lifetime non-drinker (finding) [facility] Work Phone: Start: 1945 Sex Assigned At Not on file [facility] Work Phone: Sex Assigned At [facility] Start: 10-10-1961 End: 10-10-1994 History of tobacco use Cigarette Smoker [facility] Work Phone: Start: 02-13-2022 End: 12-28-2023 Alcohol intake Current non-drinker of alcohol (finding) [facility] Start: 02-03-2022 End: 05-11-2023 Exposure to SARS-CoV-2 (event) Not sure [facility] Start: 02-14-2022 End: 03-29-2023 Tobacco smoking status NHIS Unknown if ever smoked [facility] Start: 07-31-2020 None [facility] Start: 02-15-2021 Homeless [facility] Start: 02-22-2021 Cigarettes [facility] Start: 1945 Sex Assigned At Female W [facility] Start: 08-20-2022 End: 01-06-2024 Cigarettes smoked current (pack per day) - Reported 3 [facility] Start: 08-20-2022 Tobacco Comment quit 1994 [facility] Start: 03-30-2023 End: 01-06-2024 Tobacco use panel [facility] Start: 08-16-2022 Gender identity Identifies as female gender (finding) [facility] Start: 08-16-2022 Sexual orientation Heterosexual (fin ding) [facility] Within the last year , have you been afraid of your partner or ex-partner? No [facility] Adult Depression Screening Assessment 4 [facility] (I/We) worried wheth er (my/our) food would run out before (I/we) got money to buy more. Never true [facility] Medical Equipment Procedure Code Equipment Code Equipment Origin al Text Equipment Identifier Dates USE TO TEST BLOO D SUGAR DAILY DX E11.9 [id number] Start: 03-05-2021 USE TO TEST BLOO D SUGAR DAILY DX E11.9 Start: 03-05-2021 End: 07-05-2023 Comment on above: USE TO TEST BLOOD MAYO GAR DAILY DX E11.9 Goals Date Patient Goal Desired Activity /State Personal health goal Functional Status Date Assessment Result Facility 06-17-2023 Functional Status Maintained [facility] 12-22-2022 Functional Status [facility] 12-22-2022 Functional Status Standard Safet y ID band on, Allergy Band on, Safety level maintained [facility] 12-22-2022 Functional Status [facility] 12-22-2022 Functional Status Sensory Deficits None A [facility] Mental Status Date Assessment Result Facility 06-17-2023 Mental Status Orientation Oriented x 4 [facility] 03-16-2023 Cognitive function Awake;Alert;Appropriat e [facility] Work Phone: 12-22-2022 Mental Status Orientation Oriented x 4 [facility] 12-22-2022 Mental Status [facility] 12-22-2022 Mental Status [facility] 05-01-2022 Cognitive function Voice/Name [facility] Work Phone: Clinical Notes 09-24-2020 to 02-28-2024 Telephone Encounter - Radha Arzate RN - 02/28/2024 11:55 AM EDTTelephone Encounter - Radha Arzate RN - 02/28/2024 11:55 AM EDT Note Date & Type Note Facility 02-28-2024 Miscellaneous Notes Formattin g of this note might be different from the original. Left message on voicemail asking pt to reach out to [facility] Centralized Scheduling at [phone] to arrange echo and monitor prior to upcoming 03/09/[address] Roy. If pt cannot have testing completed by OV she is to call [phone] Option 1 to move OV out until after testing. Radha Arzate RN documented in this encounter [facility] 02-28-2024 Telephone encount er Note Left message on voicemail asking pt to reach out to [facility] Centralized Scheduling at [phone] to arrange echo and monitor prior to upcoming 03/09/[address] Roy. If pt cannot have testing completed by OV she is to call [phone] Option 1 to move OV out until after testing. Radha Arzate RN [facility] 01-18-2024 Telephone encount er Note Pt called in requesting lab results. [facility] fax number provided. Zac Solorio LPN [facility] 01-18-2024 Miscellaneous Notes Formattin g of this note might be different from the original. Pt called in requesting lab results. [facility] fax number provided. Zac Solorio LPN documented in this encounter [facility] 01-06-2024 Note HNO ID: [id number] Author: JESSY ROY MD Service: ? Author Type: Physician Type: Progress Notes Filed: 01/06/2024 12:41 Note Text: Heart, Vascular and Thoracic [facility] Department of Cardiovascular Medicine SECTION OF INTERVENTIONAL CARDIOLOGY OUTPATIENT VISIT DATE 01/06/2024 OUTPATIENT VISIT TYPE NEW PRIMARY CARE PHYSICIAN: Corinne Panda DO [address] [place] [address] REFERRING PHYSICIAN: SELF CHIEF COMPLAINT: Patient presents with: New Patient HISTORY OF PRESENT ILLNESS: Ms. Ash is a 78 year old female who presents today due to HR and BP variation. She has PMH of the DM, COPD, Lung Cancer(S/P lobectomy adenocarcinoma of the lung no chemo or radiation at this point), hypothyroidism, she came as she mentioned that her HR varies from 40 to 70 and BP some times is low. She denies any dizziness, presyncope or syncope. She just mentioned that she has lack of energy and prefer to stay home and sleep more. I explain to her that we will do event monitor and if HR are low and causing symptoms we need to refer her to EP for pacemaker. She denies any chest pain or SOB. Stress test 06/27/23 was normal without any ischemia Echo 06/16/23 was normal EF and no WMA, no VHD Risk factors for coronary artery disease hyperlipidemia, diabetes She denies chest pain, shortness of breath, lightheadedness, and syncope. PAST CARDIAC HISTORY: None PAST MEDICAL HISTORY Diagnosis Date Adenocarcinoma of left lung (HCC) Benign paroxysmal positional vertigo Bradycardia COPD (chronic obstructive pulmonary disease) (HCC) Diabetes mellitus (HCC) Hypothyroidism IFG (impaired fasting glucose) Lung cancer (HCC) Mitral valve prolapse Myalgia and myositis, unspecified 01/23/2007 Obesity, unspecified 01/23/2007 Palpitations 01/23/2007 S/P lobectomy of lung Shortness of breath 01/23/2007 Sleep apnea Unspecified hypothyroidism 01/23/2007 Unspecified sleep apnea 01/23/2007 PAST SURGICAL HISTORY Procedure Laterality Date CHOLECYSTECTOMY Cholecystectomy LUNG SURGERY HX Left 07/04/[address] [place] [address], [address] dissection PAST SURGICAL HISTORY OF repair of fractured jaw TOTAL ABDOMINAL HYSTERECT W/WO RMVL TUBE OVARY Hysterectomy, BRIANA SOCIAL HISTORY Social History Tobacco Use Smoking status: Former Packs/day: 3.00 Years: 30.00 Additional pack years: 0.00 Total pack years: 90.00 Types: Cigarettes Quit date: 1994 Years since quittin.2 Smokeless tobacco: Never Tobacco comments: quit 1994 Vaping Use Vaping Use: Never used Substance Use Topics Alcohol use: No FAMILY HISTORY Problem Relation Age of Onset Diabetes Mother living at age 87. congestive failure, COPD Heart Father in his 70's, several MD's other (pancreatic cancer [Other]) Brother at age 58 Colon Cancer Son at age 20 ALLERGIES: ALLERGIES Allergen Reactions Prochlorperazine Anaphylaxis Compazine Acetaminophen Rash Other reaction(s): Rash Albuterol Other: See Comments heart racing. BP flucuating Aspirin Shortness of Breath Other reaction(s): Shortness of breath Betadine [Povidone-* Cephalexin Unknown Other reaction(s): Unknown Codeine Unknown Other reaction(s): Unknown Compazine [Prochlor* Anaphylaxis Diphenhydramine Hives Other reaction(s): Hives Doxycycline Unknown Other reaction(s): Unknown Egg Unknown Erythromycin Base Unknown Other reaction(s): Unknown Hydromorphone Unknown Ibuprofen Unknown Other reaction(s): Unknown Ketorolac Shortness of Breath Latex Lidocaine Swelling, Itching Other reaction(s): Unknown Morphine Unknown Naproxen Unknown Nsaids (Non-Steroid* Anaphylaxis Ondansetron Unknown Penicillins Unknown Other reaction(s): Unknown Propofol Other: See Comments Soap Sulfa (Sulfonamide * Unknown Tramadol Shortness of Breath Vegetables [Other] Unknown MEDICATIONS: levothyroxine (SYNTHROID) 50 mcg tablet Take 3 tablets by mouth once daily. Two tablet at breakfast, pt only takes synthroid not levothyroxine escitalopram oxalate (LEXAPRO) 20 mg tablet Take 10 mg by mouth once daily. Takes 10 mg (0.5 tablet) daily neomycin/polymyxin B/hydrocort ([id number] OPHTHALMIC) Use in eyes as directed. [id number] 3.5 MG/ML-10,000 UNIT/ML-0.1% EYE DROPS Use 1 application in both eyes as directed. olopatadine (PATANOL) 0.1 % ophthalmic solution lorazepam (ATIVAN) 1 mg ORAL Tab Take 1 mg by mouth three times daily as needed. gabapentin (NEURONTIN) 100 mg capsule Take 1 capsule by mouth three times a day for 30 days. REVIEW OF SYSTEMS: All 12 systems reviewed, all negative except what mentioned in HPI. PHYSICAL EXAMINATION: BP 112/73 Pulse 50 Resp 18 Ht 5' 5 (1.65m) Wt 183 lb (83.0kg) SpO2 98% BMI 30.45 kg/(m2). General:well developed, overweight Skin:warm and (more content not included)... [facility] 12-21-2023 Note Exam Date Time Procedure Performing Provider Status 12/21/23 8:51 AM Echocardiogram, Adult - CV Auth (Verified) [facility] 01-09-2024 NoteHNO ID: [id number] Author: XOCHILT KLEIN APRN.[facility] Service: ? Author Type: Nurse Practitioner Type: Progress Notes Filed: 10/18/2023 12:03 Note Text: ordered gabapentin during office visit with Dr. Riley. Xochilt Klein APRN.[facility]01-09-2024 NoteHNO ID: [id number] Author: SHADE RILEY MD Service: ? Author Type: Physician Type: Progress Notes Filed: 10/18/2023 11:59 Note Text: CARDIOTHORACIC SURGERY CONSULT / HANDP SERVICE DATE: 10/18/2023 SERVICE TIME: 11:45 AM Subjective PRIMARY SERVICE: Cardiothoracic Surgery CHIEF COMPLAINT: Persistent postoperative pain HPI: This is a 78 year old f woman status post left upper lobe lobectomy with mediastinal lymph node dissection performed on 07/04/2023 for left upper lobe lung adenocarcinoma. Final pathology consistent with a T2 a N0 lesion. Postop recovery is unremarkable. She has however, had persistent postthoracotomy pain. Describes sensation of muscle tightness, shoulder discomfort, scapular discomfort, numbness, discomfort from the left lateral chest to underneath the left costal margin. She has a very extensive list of allergies to medications. She is not able to tolerate Tylenol, nonsteroidal anti-inflammatory medications, most narcotics with the exception of Dilaudid, topical analgesics etc. She was using Dilaudid for pain control but has weaned herself off of this. She is now being followed in the pain management clinic. TENS unit has been applied with some minor relief. He has no fever, chills, cough, dyspnea etc. She has been seen by oncology and is undergoing routine surveillance; she is not deemed a candidate for any adjuvant therapy. Chest x-ray performed in July at her first postoperative visit was unremarkable showing expected postoperative changes. She is scheduled for routine cancer surveillance CT scan in several weeks. PAST MEDICAL HISTORY Diagnosis Date Adenocarcinoma of left lung (HCC) COPD (chronic obstructive pulmonary disease) (HCC) IFG (impaired fasting glucose) Myalgia and myositis, unspecified 01/23/2007 Obesity, unspecified 01/23/2007 Palpitations 01/23/2007 Shortness of breath 01/23/2007 Unspecified hypothyroidism 01/23/2007 Unspecified sleep apnea 01/23/2007 PAST SURGICAL HISTORY Procedure Laterality Date CHOLECYSTECTOMY Cholecystectomy LUNG SURGERY HX Left 07/04/[address] [address], [address] dissection PAST SURGICAL HISTORY OF repair of fractured jaw TOTAL ABDOMINAL HYSTERECT W/WO RMVL TUBE OVARY Hysterectomy, BRIANA FAMILY HISTORY Problem Relation Age of Onset Diabetes Mother living at age 87. congestive failure, COPD Heart Father in his 70's, several MD's other (pancreatic cancer [Other]) Brother at age 58 Colon Cancer Son at age 20 Social History Tobacco Use Smoking status: Former Packs/day: 3.00 Years: 30.00 Additional pack years: 0.00 Total pack years: 90.00 Types: Cigarettes Quit date: 1994 Years since quittin.0 Smokeless tobacco: Never Tobacco comments: quit 1994 Vaping Use Vaping Use: Never used Substance Use Topics Alcohol use: No (Not in a hospital admission) levothyroxine (SYNTHROID) 50 mcg tablet Take 3 tablets by mouth once daily. Two tablet at breakfast, pt only takes synthroid not levothyroxine escitalopram oxalate (LEXAPRO) 20 mg tablet Take 10 mg by mouth once daily. Takes 10 mg (0.5 tablet) daily neomycin/polymyxin B/hydrocort ([id number] OPHTHALMIC) Use in eyes as directed. [id number] 3.5 MG/ML-10,000 UNIT/ML-0.1% EYE DROPS Use 1 application in both eyes as directed. olopatadine (PATANOL) 0.1 % ophthalmic solution lorazepam (ATIVAN) 1 mg ORAL Tab Take 1 mg by mouth three times daily as needed. ALLERGIES Allergen Reactions Prochlorperazine Anaphylaxis Compazine Acetaminophen Rash Other reaction(s): Rash Albuterol Other: See Comments heart racing. BP flucuating All Antibiotics [Ot* Other: See Comments Especially Bactrim and PCN All Pain Meds [Othe* Aspirin Shortness of Breath Other reaction(s): Shortness of breath Betadine [Povidone-* Cephalexin Unknown Other reaction(s): Unknown Codeine Unknown Other reaction(s): Unknown Compazine [Prochlor* Anaphylaxis Ct Scan Dye [Other] Anaphylaxis Diphenhydramine Hives Other reaction(s): Hives Doxycycline Unknown Other reaction(s): Unknown Egg Unknown Erythromycin Base Unknown Other reaction(s): Unknown Hydromorphone Unknown Ibuprofen Unknown Other reaction(s): Unknown Ketorolac Shortness of Breath Latex Lidocaine Swelling, Itching Other reaction(s): Unknown Morphine Unknown Naproxen Unknown Nsaids (Non-Steroid* Anaphylaxis Ondansetron Unknown Penicillins Unknown Other reaction(s): Unknown Soap Sulfa (Sulfonamide * Unknown Tramadol Shortness of Breath Vegetables [Other] REVIEW OF SYSTEMS: As above. Objective PHYSICAL EXAM: BP 120/70 (BP Site: Left Arm, BP Position: Sitting) Pulse 60 Resp 20 Ht 5' 5.5 (1.664 m) Wt 184 lb 12.8 oz (83.8 kg) SpO2 97% BMI 30.28 kg/m? Body surface area is 1.97 meters squared. On examination, she appears well and is breathing comfortably. Vitals signs (more content not included)...[facility]11-14-2023 Evaluation + Plan note Future Scheduled Tests Laboratory* Basic Metabolic Panel 08/23/23 * Antinuclear Antibody Screen, Serum 02/24/23 * Thyroid Stimulating Hormone 02/24/23 * Rheumatoid Factor 02/24/23 * Complete Blood Count 02/24/23 [facility] 10-25-2023 NoteHNO ID: [id number] Author: Lalita Mojica RT(R) Service: Radiology Author Type: Technologist Type: Progress Notes Filed: 08/03/2023 3:11 PM Note Text: Radiology Service Progress Note PATIENT NAME: Jessica Ash DATE OF SERVICE: August 03, 2023 TIME: 3:05 PM PATIENT IDENTITY VERIFICATION COMPLETED USING TWO (2) IDENTIFIERS: Name and Date of confirmed by patient verbally. FALL SCREENING: Has the patient had 2 falls in the last year or 1 fall with injury or currently using an Ambulatory Assistive Device (Walker, Cane, Wheelchair, Crutches, etc.)? No PATIENT GENDER DATA: Female. status: : No status: NO. PATIENT RELEVANT IMPLANT DATA REVIEWED: Not Applicable RADIOLOGY DEPARTMENT: General X-ray: Exam(s) Completed: Chest X-Ray PERIPHERAL IV DATA: Not applicable SIGNED BY: RT Danyell(Vannessa) August 03, 2023 3:05 [facility]10-25-2023 History of Present illness Narrative* Lalita Mojica RT(R) - 08/03/2023 3:10 PM EDT Radiology Service Progress Note PATIENT NAME: Jessica Ash DATE OF SERVICE: August 03, 2023 TIME: 3:05 PM PATIENT IDENTITY VERIFICATION COMPLETED USING TWO (2) IDENTIFIERS: Name and Date of confirmedby patient verbally. FALL SCREENING: Has the patient had 2 falls in the last year or 1 fall with injury or currently using an Ambulatory Assistive Device (Walker, Cane, Wheelchair, Crutches, etc.)? No PATIENT GENDER DATA: Female. status: : No status: NO. PATIENT RELEVANT IMPLANT DATA REVIEWED: Not Applicable RADIOLOGY DEPARTMENT: General X-ray: Exam(s) Completed: Chest X-Ray PERIPHERAL IV DATA: Not applicable SIGNED BY: RT Danyell(R) August 03, 2023 3:05 PM [facility] Note. MICRO - Microbiology PROCEDURE: Urine Culture [*1] SOURCE: Urine BODY SITE: COLLECTED DATE/TIME: 08/01/2023 16:23 EDT RECEIVED DATE/TIME: 08/01/2023 23:38 EDT START DATE/TIME: 08/01/2023 23:38 EDT FREE TEXT SOURCE: FINAL REPORTS Final Report [] Verified Date/Time/Personnel: 08/03/2023 07:35 EDT 10,000 - 50,000 cfu/ml Mixed growth consistent with normal urogenital eliana. PRELIMINARY REPORTS Preliminary Report [] Verified Date/Time/Personnel: 08/02/2023 09:19 EDT No growth to date Performing Locations *1: This test was performed at: [facility], [address] [place] [address], [id number] , Formerly [facility] ([place])08-02-2023 Miscellaneous Notes* Telephone Encounter - Jose Cruz Martinez - 08/02/2023 3:23 PM EDT Pain Management Nolan ph [phone] fax [phone] / [address] [place] [address] [address] [facility] [id number] Spoke with office to refer pt for post operative pain s/p 07/04/23 ROSETTA lung resection, multiple complex allergy history. They requested records be faxed once received and reviewed they will call pt directly to schedule. Records faxed 08/02/23 3:30pm confirmation received documented in this encounterOhio State [facility]ing [facility]10-24-2023 Instructions* Patient Instructions* Arpil Velasquez APRN.CNP - 08/02/2023 3:15 PM EDT You have done a great job continuing to recover from lung surgery; Moving forward, here are the recommendations: Driving: Ok to drive now! Medications: Continue Dilaudid as needed for pain, with the goal of taking less as the pain improves and subsides. Can also use hot/cold applications to site of pain. Restrictions: No aggressive lifting/pushing/pulling for total of 8 weeks, then activity as tolerated to allow further healing, then gradually resume your normal activities depending on how you feel. Follow-ups: It is crucial to establish future appointments with your main providers, they are your primary care provider (please call to schedule), your shoe folder (please call to schedule), your oncologist (please call to schedule), and pain management (referral sent today to [facility] who should be calling you to schedule an appointment), for medications refills/questions and future health management. Please have your chest x-ray and labs done at your earliest convenience. You can follow up with cardiac surgery team on as needed basis. Please don't hesitate to contact us if you have any concerns/questions: [phone] Thanks for coming in to see me today. April Velasquez APRN.TONIA documented in this encounterOhio State Harding Hospital10-24-2023 NoteHNO ID: [id number] Author: April Velasquez APRN.CNP Service: ? Author Type: Nurse Practitioner Type: Progress Notes Filed: 08/02/2023 4:16 PM Note Text: HPI: (per Dr. Riley) This is a 78 year old woman referred for evaluation of a left upper lobe nonsmall cell lung cancer and for consideration for resection. She complains of long standing exertional dyspnea. A left upper lobe lesion was identified on CXR. Subsequent CT scans of the chest performed in October and November showing stable 2.3 cm area of consolidation within the left upper lobe with stable central nodular density; no adenopathy; no effusion. PET scanning 04/15 was positive at this site for hypermetabolism with SUV 12.9. A new second hypermetabolic nodule is identified in the left upper lobe laterally and anteriorly, pleural based, measuring 1.6 x 1.1 cm with SUV 4.1. No hypermetabolic mediastinal lymph nodes. There is hypermetabolsim associated with the distal esophagus with SUV 6.8 (felt to be inflammatory). CT guided biopsy is positive for nonsmall cell cancer, favoring adenocarcinoma. Bronchoscopic EBUS evaluation of the mediastinum is negative at stations 11R, 4R, 4L, 7, 11L. Patient underwent left thoracotomy with ROSETTA lobectomy, mediastinal lymph node sampling with Dr. Riley on 07/04/23 which she tolerated without immediate complications. CT was removed 07/08, CXR after removal showed no appearance of new PNX. She discharged home 07/09/23. She was scheduled to see Dr. Riley in office for follow up this afternoon however due to other emergent surgery, patient opted to be seen by myself rather than reschedule with Dr. Riley tomorrow. She presents for 2 week post dc follow up, accompanied by her . Reviewed path showing adenocarcinoma, lymph nodes negative for carcinoma, margins are negative for carcinoma. Interval events: On encounter, pt reports the following: Not doing very good, I don't know why I have so much pain, rated 9/10 located around incisions and radiates up and down left back. She reports only taking one tab dilaudid every evening which is the only relief she gets. She reports breaking out in sweat for past few days then gets chilled when the cold air hits me. She reports having a UTI and being discharged with Rx for antibiotic when she went to [facility] ER 07/13 for fall from bed at home, which she states she was never able to strip picker and UTI went away on own drinking water as reportedly UA checked yesterday was negative. She reports the following: Fever/chills: denies fever Dizziness/lightheadedness/syncope: denies Chest pain/palpitations: denies Incisional pain: surrounding incision, 06/19, I cut myself to one dose a dilaudid and that's the only relief I get, tried hot/cold compresses. I feel like it's a little bit better, I make myself move more. Any drainage from site: denies SOB/cough: when I exert, I get SOB, fine at rest, I force myself to do a load of laundry, denies lifting more than 10# Activity/Ambulation/Stairs: has been walking and doing steps Appetite: I think I've lost 9-10 pounds, prior to surgery was 193#, 186# today at OV, reports eating what I can, I get full so fast, and I get a lot of gas, reports eating protein daily N/V/D/C/abdominal pain: denies Leg swelling: denies Sleep: distorted due to uncomfortableness and pain Now reports no UTI symptoms Subjective: Current Outpatient Medications Medication Sig escitalopram oxalate (LEXAPRO) 20 mg tablet Take 10 mg by mouth once daily. Takes 10 mg (0.5 tablet) daily neomycin/polymyxin B/hydrocort ([id number] OPHTHALMIC) Use in eyes as directed. [id number] 3.5 MG/ML-10,000 UNIT/ML-0.1% EYE DROPS Use 1 application in both eyes as directed. olopatadine (PATANOL) 0.1 % ophthalmic solution INSTILL 1 DROP INTO BOTH EYES TWICE DAILY NEEDED AT 6-8 HOUR INTERVALS. levothyroxine (SYNTHROID) 50 mcg tablet Take 50 mcg by mouth. Two tablet at breakfast, pt only takes synthroid not levothyroxine lorazepam (ATIVAN) 1 mg ORAL Tab Take 1 mg by mouth three times daily as needed. No current facility-administered medications for this visit. Prochlorperazine, Acetaminophen, Albuterol, All Antibiotics [Other], All Pain Meds [Other], Aspirin, Betadine [Povidone-Iodine], Cephalexin, Codeine, Compazine [Prochlorperazine Edisylate], Ct Scan Dye [Other], Diphenhydramine, Doxycycline, Egg, Erythromycin Base, Hydromorphone, Ibuprofen, Ketorolac, Latex, Lidocaine, Morphine, Naproxen, Nsaids (Non-Steroidal Anti-Inflammatory Drug), Ondansetron, Penicillins, Soap, Sulfa (Sulfonamide Antibiotics), Tramadol, and Vegetables [Other] PAST MEDICAL HISTORY Diagnosis Date Adenocarcinoma of left lung (HCC) COPD (chronic obstructive pulmonary disease) (HCC) IFG (impaired fasting glucose) Myalgia and myositis, unspecified 01/23/2007 Obesity, unspecified 01/23/2007 Palpit (more content not included)...[facility]10-24-2023 History of Present illness Narrative* April Velasquez APRN.DRIVER RECRUITER - 08/02/2023 2:47 PM EDT HPI: (per Dr. Riley) This is a 78 year old woman referred for evaluation of a left upper lobe nonsmallcell lung cancer and for consideration for resection. She complains of long standing exertional dyspnea. A left upper lobe lesion was identified on CXR. Subsequent CT scans of the chest performed in October and November showing stable 2.3 cm area of consolidation within the left upper lobe with stable central nodular density; no adenopathy; no effusion. PET scanning 04/15 was positive at this site for hypermetabolism with SUV 12.9. A new second hypermetabolic nodule is identified in the left upper lobe laterally and anteriorly, pleural based, measuring 1.6 x 1.1 cm with SUV 4.1. No hypermetaboli c mediastinal lymph nodes. There is hypermetabolsim associated with the distal esophagus with SUV 6.8 (felt to be inflammatory). CT guided biopsy is positive for nonsmall cell cancer, favoring adenocarcinoma. Bronchoscopic EBUS evaluation of the mediastinum is negative at stations 11R, 4R, 4L, 7, 11L. Patient underwent left thoracotomy with ROSETTA lobectomy, mediastinal lymph node sampling with Dr. Riley on 07/04/23 which she tolerated without immediate complications. CT was removed 07/08, CXR after removal showed no appearance of new PNX. She discharged home 07/09/23. She was scheduled to see Dr. Riley in office for follow up this afternoon however due to other emergent surgery, patient opted to be seen by myself rather than reschedule with Dr. Riley tomorrow. She presents for 2 week post dc follow up, accompanied by her . Reviewed path showing adenocarcinoma, lymph nodes negative for carcinoma, margins are negative for carcinoma. Interval events: On encounter, pt reports the following: Not doing very good, I don't know why I have so much pain, rated 9/10 located around incisions and radiates up and down left back. She reports only taking one tab dilaudid every evening which is the only relief she gets. She reports breaking out in sweat for past few days then gets chilled when the cold air hits me. She reports having a UTI and being discharged with Rx for antibiotic when she went to [facility] ER 07/13 forfall from bed at home, which she states she was never able to strip picker and UTI went away on own drinking water as reportedly UA checked yesterday was negative. She reports the following: Fever/chills: denies fever Dizziness/lightheadedness/syncope: denies Chest pain/palpitations: denies Incisional pain: surrounding incision, 9/10, I cut myself to one dose a dilaudid and that's the only relief I get, tried hot/cold compresses. I feel like it's a little bit better, I make myself move more. Any drainage from site: denies SOB/cough: when I exert, I get SOB, fine at rest, I force myself to do a load of laundry, denies lifting more than 10# Activity/Ambulation/Stairs: has been walking and doing steps Appetite: I think I've lost 9-10 pounds, prior to surgery was 193#, 186# today at OV, reports eating what I can, I get full so fast, and I get a lot of gas, reports eating protein daily N/V/D/C/abdominal pain: denies Leg swelling: denies Sleep: distorted due to uncomfortableness and pain Now reports no UTI symptoms Subjective: Current Outpatient Medications Medication Sig escitalopram oxalate (LEXAPRO) 20 mg tablet Take 10 mg by mouth once daily. Takes 10 mg (0.5 tablet) daily neomycin/polymyxin B/hydrocort ([id number] OPHTHALMIC) Use in eyes as directed. [id number] 3.5 MG/ML-10,000 UNIT/ML-0.1% EYE DROPS Use 1 application in both eyes as directed. olopatadine (PATANOL) 0.1 % ophthalmic solution INSTILL 1 DROP INTO BOTH EYES TWICE DAILY NEEDEDAT 6-8 HOUR INTERVALS. levothyroxine (SYNTHROID) 50 mcg tablet Take 50 mcg by mouth. Two tablet at breakfast, pt only takes synthroid not levothyroxine lorazepam (ATIVAN) 1 mg ORAL Tab Take 1 mg by mouth three times daily as needed. No current facility-administered medications for this visit. Prochlorperazine, Acetaminophen, Albuterol, All Antibiotics [Other], All Pain Meds [Other], Aspirin, Betadine [Povidone-Iodine], Cephalexin, Codeine, Compazine [Prochlorperazine Edisylate], Ct Scan Dye [Other], Diphenhydramine, Doxycycline, Egg, Erythromycin Base, Hydromorphone, Ibuprofen, Ketorolac, Latex, Lidocaine, Morphine, Naproxen, Nsaids (Non-Steroidal Anti-Inflammatory Drug), Ondansetron,Penicillins, Soap, Sulfa (Sulfonamide Antibiotics), Tramadol, and Vegetables [Other] PAST MEDICAL HISTORY Diagnosis Date Adenocarcinoma of left lung (HCC) COPD (chronic obstructive pulmonary disease) (HCC) IFG (impaired fasting glucose) Myalgia and myositis, unspecified 01/23/2007 Obesity, unspecified 01/23/2007 Palpitations 01/23/2007 Shortness of breath 01/23/2007 Unspecified hypothyroidism 01/23/2007 Unspecified sleep apnea 01/23/2007 PAST SURGICAL HISTORY Procedure Laterality Date CHOLECYSTECTOMY Cholecystectomy LUNG SURGERY HX Left 07/04/[address], [address] dissection PAST SURGICAL HISTORY OF repair of fractured jaw TOTAL ABDOMINAL HYSTERECT W/WO RMVL TUBE OVARY Hysterectomy, [facility] FAMILY HISTORY Problem Relation Age of Onset Diabetes Mother living at age 87. congestive failure, COPD Heart Father in his 70's, several MD's other (pancreatic cancer [Other]) Brother at age 58 Colon Cancer Son at age 20 Social History Tobacco Use Smoking status: Former Packs/day: 3.00 Years: 30.00 Additional pack years: 0.00 Total pack years: 90.00 Types: Cigarettes Quit date: 1994 Years since quittin.8 Smokeless tobacco: Never Tobacco comments: quit 1994 Substance Use Topics Alcohol use: No ROS - see HPI Objective: Physical Examination: Vitals:Ht 5' 5[Patient reports[ (1.65m) Wt 186 lb 3.2 oz (84.5kg) BMI 30.99 kg/(m^2). Last 2 Encounter Wt Readings: Date: Wt: 08/02/2023 186 lb 3.2 oz (84.5 kg) 07/01/2023 190 lb 6.4 oz (86.4 kg) Physical Exam Vitals reviewed. Constitutional: General: She is not in acute distress. Appearance: She is not ill-appearing or toxic-appearing. HENT: Mouth/Throat: Mouth: Mucous membranes are moist. Eyes: Extraocular Movements: Extraocular movements intact. Conjunctiva/sclera: Conjunctivae normal. Cardiovascular: Rate and Rhythm: Normal rate and regular rhythm. Pulses: Normal pulses. Heart sounds: Normal heart sounds. Pulmonary: Effort: Pulmonary effort is normal. No respiratory distress. Breath sounds: Normal breath sounds. No wheezing, rhonchi or rales. Abdominal: General: Bowel sounds are normal. There is no distension. Palpations: Abdomen is soft. Tenderness: There is no abdominal tenderness. Musculoskeletal: Right lower leg: No edema. Left lower leg: No edema. Skin: General: Skin is warm and dry. Comments: L thoracotomy healing with glue, no s/sx of infection, INSTRUMENT/CONTROL TECHNICIAN L lateral previous CT site healed, INSTRUMENT/CONTROL TECHNICIAN, no s/sx of infection, INSTRUMENT/CONTROL TECHNICIAN Neurological: General: No focal deficit present. Mental Status: She is alert and oriented to person, place, and time. Psychiatric: Mood and Affect: Mood normal. Behavior: Behavior normal. Assessment and Plan: Adenocarcinoma of lung - S/P ROSETTA lobectomy with Dr. Riley on 07/04/23 - Path + adenocarcinoma, negative margins, negative lymph nodes all reviewed with patient and her today - Two week post DC CXR not done, asked that she have this completed at her earliest convenience - Patient concerned about chills, feels she has infection; Not clinically appearing infected on exam, VSS, lungs CTA, 98% on room air, incisions look good; Will check CBC & BMP - Doing well from a post thoracotomy perspective - Denies acute worsening of respiratory symptoms, pulse ox 98% on room air currently - Incisions healing well - Pain control as below - Continue good pulmonary hygiene/IS/ambulation - No aggressive lifting/ activity for 6 more weeks, then activity as tolerated - Encouraged to make follow up appointment with shoe folder, oncologist and primary care provider Post op pain - Very slowly improving - Incisions healing very nicely without s/sx of infection - Limited by pain medication options due to multiple allergies - Referral previously sent to [facility] reportedly do not manage post op pain - Referral sent today to [facility] who should be contacting patient to schedule - Sent another 7 day supply of dilaudid 2 mg BID PRN #14 with the hope of using less as pain improves and subsides - Reviewed use of hot/cold application and avoiding positions which cause pain (ie laying on left side) Electronically signed by April Velasquez APRN.CNP on August 02, 2023, 4:05 PM documented in this encounterOhio State [facility]ing Hospital10-23-2023 Evaluation + Plan note Diagnostic Tests Pending * Urine Culture 08/01/23 Future Scheduled Tests Laboratory* Antinuclear Antibody Screen, Serum 02/24/23 * Thyroid Stimulating Hormone 02/24/23 * Rheumatoid Factor 02/24/23 * Complete Blood Count 02/24/23 [facility] 10-19-2023 Miscellaneous Notes* Telephone Encounter - Mirella Garrison - 07/28/2023 3:11 PM EDT Received referral from [facility] APRN.CNP to schedule patient for S/P lobectomy of lung [Z90.2] Confirmed with [facility] that we do not treat for management of pain medication post surgery. Spoke with patient and advised of this. Patient will follow up with referring provider. Mirella Garrison documented in this encounterOhio State Harding Hospital10-18-2023 Miscellaneous Notes* Telephone Encounter - Gerardo Vázquez - 07/27/2023 12:59 PM EDT Images from the original note were not included. LMOM to patient [facility] APRN.CNP Franks, Mari Offer tomorrow afteroon saranya to patient is she wants to take it please. documented in this encounterOhio State Harding Hospital10-16-2023 Miscellaneous Notes* Addendum Note - [facility] APRN.CNP - 07/25/2023 2:06 PM EDTAddended by: WARREN MENDES on: 07/25/2023 02:06 PM Modules accepted: Orders * Telephone Encounter - [facility] APRN.CNP - 07/25/2023 1:14 PM EDT Chart reviewed. Pt is s/p ROSETTA resection, mediastinal lymph note resection by Dr. Riley 07/04/23, tolerated procedure well. Pathology pending at time of DC. Seen by Dr. Portillo with pain managementpost op due to extensive allergy history. 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 pt stated she took Ativan 0.5 mg twice daily and 1 mg at bedtime prior to admission. Was sent home with dilaudid po rx per pain management 2 mg tablet, take 0.5-1 tablet every 6 hours as needed for up to 5 days. DCd home 07/09/23. 07/14/23 had a fall out of bed- see telephone encounter. Seen in free standing ED, apparently had CTscan and CXR completed. Does not appear we have received copies of these from PCP yet. Due to fall and increased discomfort, renewal of hydromorphone was sent to pharmacy. Her follow up with Dr. Riley was moved up to 07/27/23. 07/25/23 patient sends MC message to office (Please give me some answers. I am unable to function at even simple task. I am a very active person normally. I cant function. The pain in my back l.lung and ribs is burning sharp excruciating. Moving is an effort. Was taking one half pain pill. Wait 9 hours one half pain so bad does not phase it by then bed time one half tab. I am not able to functionand suffering feeling this is normal. Cant sleep keep waking in pain. If this is normal i cant hackit Even my esophagus and upper r. Lung was hurting this morning Better now but have to get some relief what can i do my nerves are raw. Trying to be a good patient. Why am i so abnormal. This is definately a cry for help. Cant move without suffering. Had it. So sorry jessica aquino). I called patient back today to discuss. NO fevers or chills, no drainage from incision sites. Pulseox at home 94%. Occ cough, relates it to PND and allergies, no worsening SOB. Knows she has CXR andappt with Dr. Riley this Tuesday. She had been taking 1 mg Dilaudid every 9 hours since last renewal. Has 1.5 tablets left. Reports tearfully and adamantly that this regimen is insufficient to con trol. OARRS run, will send in 5 day rx for dilaudid 1 mg po q 6 hrs prn. Advised heat and ice. Limitied by other pain management modalities. Advised I would also send in a referral to pain management. She was quite surprised and expressed frustration that this was the next step. Reassured her that surgeries such as hers can take some time to heal, and given her complex allergy history, this would be a great resource. She inquired if we would cover her diluadid until then. I advised she could have that discussion with Dr. Riley Tuesday. I also encouraged her to continue with her TID ativan, and she asked me why are you going there. I advised this would help with overall pain controll as well. She hung up on me at that time. I called her back to verify if she did want the dilaudid rx calledin and to where. Reminded her to please get her CXR and that we have not yet received imaging records from her PCP. Rx sent to pharmacy of choice. 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 Please have them fax over the CT scan results and chest xray Monitor closely with combination opiates and benzodiazepine regimen prn. Tolerating thus far documented in this encounterOhio State Harding Hospital10-14-2023 NoteHNO ID: [id number] Author: Note, Interface Service: ? Author Type: ? Type: Progress Notes Filed: 07/23/2023 5:25 AM Note Text: Epic Scheduled Downtime: 07/23/2023 1:00:00 AM to 07/23/2023 1:28:00 [facility] Note. MICRO - Microbiology PROCEDURE: Urine Culture [*1] SOURCE: Urine, Clean Catch BODY SITE: COLLECTED DATE/TIME: 07/13/2023 09:54 EDT RECEIVED DATE/TIME: 07/13/2023 20:09 EDT START DATE/TIME: 07/13/2023 20:09 EDT FREE TEXT SOURCE: FINAL REPORTS Final Report [] Verified Date/Time/Personnel: 07/15/2023 07:35 EDT 10,000 - 50,000 cfu/ml Mixed growth consistent with normal urogenital eliana. PRELIMINARY REPORTS Preliminary Report [] Verified Date/Time/Personnel: 07/14/2023 09:34 EDT No growth to date Performing Locations *1: This test was performed at: [facility], [address] [place] [address], [facility] , [facility] ([place])07-11-2023 Miscellaneous Notes* Telephone Encounter - [facility]es APRN.CNP - 07/11/2023 1:17 PM EDT Called Jessica Aquino, Removed bandage yesterday which she reported was full of fluid and blood, replaced with a new bandage. This is still on, and she reports that she has not noticed any more drainage. 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 Reviewed s/sx of infection to report and to call if still draining around end of week. Explainedthat she has a f/u appt set 08/03 with [facility] with a CXR to be obtained prior. She verbalized understanding. [facility] APRN.CNP * Telephone Encounter - Theo Marsh LPN - 07/11/2023 11:13 AM EDT Patient calling in and left message stating she was Discharged Tuesday but her bandages felt like it was full of blood/fluid so they took off. Patient states how often should it be changed? When canit be left off? Patient states she thinks she may need Home Care Nursing? Theo Marsh LPN July 11, 2023 11:15 AM documented in this encounterOhio State Harding Hospital09-29-2023 NoteHNO ID: [id number] Author: Dell Ashley DO Service: General Surgery Author Type: Resident Type: Progress Notes Filed: 07/08/2023 7:31 AM Note Text: Attestation signed by Shade Riley MD at 07/09/2023 9:01 PM Attending Note I discussed with resident. The patient was not examined by the attending. I reviewed the radiology, labs, etc and resident's note. I agree with the resident's assessment and plan unless otherwise noted. Signature: Shade Riley MD Date: 07/09/2023. Time: 9:01 PM Thoracic Surgery Progress Note SERVICE DATE: July 08, 2023 Thoracic Service Pager: For questions or concerns Mon-Fri 6a-5p please page [phone]. After 5pm and on Weekends and Holidays, please page [phone] if in ICU or [phone] if on RNF. Subjective SUBJECTIVE: NAOE VSS. Patient had 10cc output on WS. Tolerating PO intake. On minimal O2 sating well. Diet: DIET REGULAR Objective OBJECTIVE: Vitals: Temp (24hrs), Av.8 ?C (98.2 ?F), Min:36.5 ?C (97.7 ?F), Max:37.1 ?C (98.8 ?F) BP 125/62 Pulse 62 Temp 36.5 ?C (97.7 ?F) (Temporal) Resp 20 SpO2 96% O2 Therapy: Nasal Cannula IANDO: Date 07/07/23699 - 07/08/23 0607/08/23 07 - 07/09/23 0659 Shift 1570-8113 4776-4822 6216-7846 24 Hour Total 6260-2245 7260-1502 8207-1543 24 Hour Total INTAKE PO 500 500 PO 500 500 Shift Total 500 500 OUTPUT Urine Urine Not Saved. 2 x 2 x Chest Tube 10 10 Chest Tube Output (Chest Tube 07/04/23 Left Pleural 32 Fr Tube #1) 10 10 # of BMs Number of BMs 0 x 0 x Shift Total 10 10 Weight (kg) MEDICATIONS Current Facility-Administered Medications Medication Dose Route Frequency HYDROmorphone 0.4 mg injection (DILAUDID) 0.4 mg INTRAVENOUS q 4 H PRN levothyroxine 50 mcg tab(s) (SYNTHROID) 50 mcg ORAL BEFORE LUNCH DAILY Followed by levothyroxine 100 mcg tab(s) (SYNTHROID) 100 mcg ORAL DAILY (6 AM) escitalopram oxalate 10 mg tab(s) (LEXAPRO) 10 mg ORAL DAILY HYDROmorphone 1-2 mg tab(s) (DILAUDID) 1-2 mg ORAL q 3 H PRN levothyroxine 50 mcg tab(s) (SYNTHROID) 50 mcg ORAL DAILY (6 AM) enoxaparin 40 mg injection (LOVENOX) 40 mg SUBCUTANEOUS DAILY NaCl 0.9% iv flush bag 20 mL INTRAVENOUS PRN LORazepam 0.5-1 mg tab(s) (ATIVAN) 0.5-1 mg ORAL TID PRN Labs: Recent Labs 07/08/23 0243 07/07/23 0409 07/06/23 0418 NA 136 136 131* K 4.0 3.8 4.5 CHLOR 100 101 97 CO2 27 27 26 BUN 18 18 21 CREAT 0.71 0.72 0.77 GLUC 106* 111* 138* ANION 9 8* 8* CA 8.6 8.5 9.1 MG -- -- 2.5* P -- -- 2.8 WBC 7.90 9.49 12.20* HB 10.7* 10.9* 11.7 HCT 33.2* 33.7* 35.9* PLT 162 162 162 Physical Exam: General: Alert and oriented x 3. No acute distress. HEENT: Atraumatic, no midline tenderness, no step off deformities. CV: RR, good capillary refill. Respiratory: Unlabored breathing on 2LNC, equal chest rise bilaterally. L CT on WS with 15 with no air leak Abdomen: Soft, nondistended, NTP, no rebound, guarding. Neuro: AANDOx3, CNII-XII grossly intact, sensorimotor function grossly intact. Heme: No bleeding, no ecchymoses. Skin: Skin warm and dry. EXT: AROM grossly wnl in all four extremities. Assessment AND Plan ASSESSMENT AND PLAN: Assessment Active Hospital Problems Diagnosis Date Noted S/P lobectomy of lung 07/04/2023 Assessment: 78 year old female s/p left upper lobe lobectomy on 07/04/23 for ROSETTA nodule with biopsy sample c/f non small cell. Hospital Course/Operations/Procedures: 07/04/2023 Procedure(s): LEFT UPPER LUNG LOBECTOMY, INTERCOSTAL BLOCK X4 WITH CRYO MEDIASTINAL LYMPH NODE DISSECTION BRONCHOSCOPY FLEXIBLE ADULT Plan: - Will likely remove CT today. 10cc SS output. Pending CXR. - Daily CXR while CT in place. - Pain control: appreciate pain management assistance given numerous allergies, tolerating current regimen - Surgical pathology pending - LVX for DVT ppx. - Regular diet. - Encouraged ambulation, out of bed, and IS use. - Home synthroid and lexapro Will d/w Dr. Riley. SIGNATURE: Dell Ashley DO PATIENT NAME: Jessica Ash DATE: July 08, 2023 TIME: 7:25 AM Pager: [phone] Thoracic Service Pager: For questions or concerns Mon-Fri 6a-5p please page [phone]. After 5pm and on Weekends and Holidays, please page [phone] if in ICU or [phone] if on RNF. Portions of the physical exam and assessment/plan of the previous day's note has been copied over. However changes were made to reflect the care plan for today, 07/08/2023[facility]09-28-2023 NoteHNO ID: [id number] Author: Shade Riley MD Service: General Surgery Author Type: Physician Type: Progress Notes Filed: 07/07/2023 3:38 PM Note Text: Thoracic Surgery Progress Note SERVICE DATE: July 07, 2023 Thoracic Service Pager: For questions or concerns Mon-Tue 6a-5p please page [phone]. After 5pm and on Weekends and Holidays, please page [phone] if in ICU or [phone] if on RNF. Subjective SUBJECTIVE: NAEON. Patient seen and examined. Resting comfortably in bed. Does state her night was a little rough with pain and coughing. No SOB. Diet: DIET REGULAR Objective OBJECTIVE: Vitals: Temp (24hrs), Av.3 ?C (99.2 ?F), Min:36.9 ?C (98.4 ?F), Max:37.9 ?C (100.2 ?F) BP 147/72 Pulse 61 Temp 36.9 ?C (98.4 ?F) (Oral) Resp 16 SpO2 95% O2 Therapy: Nasal Cannula IANDO: Date 07/06/23699 - 07/07/2359 07/07/23699 - 07/08/23 0659 Shift 9018-9340 1529-6308 7999-0831 24 Hour Total 2272-8852 2472-7112 3987-9377 24 Hour Total INTAKE PO 420 420 PO 420 420 Shift Total 420 420 OUTPUT Urine 600 600 Void (ml) 600 600 Chest Tube 0 15 15 Chest Tube Output (Chest Tube 07/04/23 Left Pleural 32 Fr Tube #1) 0 15 15 Shift Total 600 15 615 Weight (kg) MEDICATIONS Current Facility-Administered Medications Medication Dose Route Frequency HYDROmorphone 0.4 mg injection (DILAUDID) 0.4 mg INTRAVENOUS q 4 H PRN HYDROmorphone 1-2 mg tab(s) (DILAUDID) 1-2 mg ORAL q 3 H PRN escitalopram oxalate 20 mg tab(s) (LEXAPRO) 20 mg ORAL DAILY levothyroxine 50 mcg tab(s) (SYNTHROID) 50 mcg ORAL DAILY (6 AM) enoxaparin 40 mg injection (LOVENOX) 40 mg SUBCUTANEOUS DAILY NaCl 0.9% iv flush bag 20 mL INTRAVENOUS PRN LORazepam 0.5-1 mg tab(s) (ATIVAN) 0.5-1 mg ORAL TID PRN Labs: Recent Labs 07/07/23 0409 07/06/23 0418 07/05/23 0602 07/04/23 1600 NA 136 131* < > -- K 3.8 4.5 < > -- CHLOR 101 97 < > -- CO2 27 26 < > -- BUN 18 21 < > -- CREAT 0.72 0.77 < > -- GLUC 111* 138* < > -- ANION 8* 8* < > -- CA 8.5 9.1 < > -- MG -- 2.5* -- -- P -- 2.8 -- -- WBC 9.49 12.20* < > -- HB 10.9* 11.7 < > -- HCT 33.7* 35.9* < > -- PLT 162 162 < > -- LACT -- -- -- 1.1 PH -- -- -- 7.26* PCO2 -- -- -- 56* PO2 -- -- -- 85 HCO3 -- -- -- 24 < > = values in this interval not displayed. Physical Exam: General: Alert and oriented x 3. No acute distress. HEENT: Atraumatic, no midline tenderness, no step off deformities. CV: RR, good capillary refill. Respiratory: Unlabored breathing on 2LNC, equal chest rise bilaterally. L CT on -20 sxn with 15 ccs out with no air leak Abdomen: Soft, nondistended, NTP, no rebound, guarding. Neuro: AANDOx3, CNII-XII grossly intact, sensorimotor function grossly intact. Heme: No bleeding, no ecchymoses. Skin: Skin warm and dry. EXT: AROM grossly wnl in all four extremities. Assessment AND Plan ASSESSMENT AND PLAN: Assessment Active Hospital Problems Diagnosis Date Noted S/P lobectomy of lung 07/04/2023 Assessment: 78 year old female s/p left upper lobe lobectomy on 9/25/23 for ROSETTA nodule with biopsy sample c/f non small cell. Hospital Course/Operations/Procedures: 07/04/2023 Procedure(s): LEFT UPPER LUNG LOBECTOMY, INTERCOSTAL BLOCK X4 WITH CRYO MEDIASTINAL LYMPH NODE DISSECTION BRONCHOSCOPY FLEXIBLE ADULT Plan: - Will likely transition CT to WS today - Daily CXR while CT in place - Showing persistent atelectasis at left lung base. Chest tube stable. No pneumothorax. - Pain control: appreciate pain management assistance given numerous allergies, tolerating current regimen - Surgical pathology pending - LVX for DVT ppx. - Regular diet. - Encouraged ambulation, out of bed, and IS use. - Home synthroid and lexapro Will d/w Dr. Riley. SIGNATURE: Venita Han DO PATIENT NAME: Jessica Ash DATE: July 07, 2023 TIME: 7:56 AM Pager: [phone] Thoracic Service Pager: For questions or concerns Mon-Fri 6a-5p please page [phone]. After 5pm and on Weekends and Holidays, please page [phone] if in ICU or [phone] if on RNF. I personally saw and examined the patient on 07/07. I reviewed the resident's note. I agree with the resident's assessment and plan unless otherwise noted. No air leak. Will place chest tube to water seal Possible removal of chest tube tomorrow. Await path. Wean O2 as tolerated (she does use supplemental O2 at night at home in place of CPAP). Walking halls and using IS well. Pain reasonably well controlled.[facility]09-28-2023 NoteHNO ID: [id number] Author: Chary Portillo MD Service: Pain Management Author Type: Physician Type: Progress Notes Filed: 07/07/2023 11:01 AM Note Text: Name: JESSICA ASH Age: [age] year old PAIN MANAGEMENT: s/p ROSETTA lobectomy, mediastinal LN dissection Pain Description: Most of pain left chest tube site. Does get relief with Dilaudid 2 mg dose. Interval HPI: ICU yesterday. Stable overnight. 2 L 95%. Still with left chest tube. Repeat chest x-ray stable. 24H Comfort Meds: Dilaudid 0.4 mg x 1 Dilaudid 1 mg p.o. x2, 2 mg p.o. x3 Ativan 1 mg x 1, 0.5 mg x 1 Subjective HPI: 78-year-old female with history of COPD, remote tobacco abuse, ANA (intolerant of CPAP) admitted 07/04 For ROSETTA lobectomy, mediastinal LN dissection for resection left upper lobe non-small cell lung cancer (biopsy favoring adenocarcinoma). RT was asked to assist in postop pain management. Patient has extensive allergy list (29) with multiple intolerances/allergies to pain medications including Tylenol, codeine, Dilaudid, ibuprofen, Toradol, morphine, naproxen and tramadol. Patient did receive Dilaudid dose and tolerated it. Patient unable to tell me what her reaction is to these pain medications. Of note, she is prescribed Ativan 1 mg up to 3 times daily. Patient states she usually takes Ativan 0.5 mg twice daily and 1 mg at bedtime. OARRS Review: 17 prescriptions from 1 prescriber. Benzodiazepine dependent. Most recent prescriptions: 05/10, 06/20 Ativan 1 mg #90 (30-day supply) Current Facility-Administered Medications Medication Dose Route Frequency Provider Last Rate Last Admin HYDROmorphone 0.4 mg injection (DILAUDID) 0.4 mg INTRAVENOUS q 4 H PRN Venita Han DO 0.4 mg at 07/07/23 0609 HYDROmorphone 1-2 mg tab(s) (DILAUDID) 1-2 mg ORAL q 3 H PRN Venita Han DO 2 mg at 07/07/23 0341 escitalopram oxalate 20 mg tab(s) (LEXAPRO) 20 mg ORAL DAILY Venita Han DO 20 mg at 07/06/23 2030 levothyroxine 50 mcg tab(s) (SYNTHROID) 50 mcg ORAL DAILY (6 AM) Venita Han DO 50 mcg at 07/07/23 0456 enoxaparin 40 mg injection (LOVENOX) 40 mg SUBCUTANEOUS DAILY Venita Han DO 40 mg at 07/06/23 0818 NaCl 0.9% iv flush bag 20 mL INTRAVENOUS PRN Venita Han DO 20 mL/hr at 07/04/23 1649 20 mL at 07/04/23 1649 LORazepam 0.5-1 mg tab(s) (ATIVAN) 0.5-1 mg ORAL TID PRN Venita Han, DO 1 mg at 07/06/232017 neomycin/polymyxin B/hydrocort ([id number] OPHTHALMIC), Use in eyes as directed., Disp: , Rfl: [id number] 3.5 MG/ML-10,000 UNIT/ML-0.1% EYE DROPS, Use 1 application in both eyes as directed., Disp: , Rfl: olopatadine (PATANOL) 0.1 % ophthalmic solution, INSTILL 1 DROP INTO BOTH EYES TWICE DAILY NEEDED AT 6-8 HOUR INTERVALS., Disp: , Rfl: , 07/03/2023 levothyroxine (SYNTHROID) 50 mcg tablet, Take 50 mcg by mouth. Two tablet at breakfast, pt only takes synthroid not levothyroxine, Disp: , Rfl: , 07/04/2023 at 0445 escitalopram oxalate (LEXAPRO) 20 mg tablet, Take 20 mg by mouth once daily., Disp: , Rfl: , 07/03/2023 lorazepam (ATIVAN) 1 mg ORAL Tab, Take 1 mg by mouth three times daily as needed., Disp: , Rfl: 0, 07/04/2023 at 0445 Social History Tobacco Use Smoking status: Former Packs/day: 3.00 Years: 30.00 Additional pack years: 0.00 Total pack years: 90.00 Types: Cigarettes Quit date: 1994 Years since quittin.7 Smokeless tobacco: Never Tobacco comments: quit 1994 Substance Use Topics Alcohol use: No FAMILY HISTORY Problem Relation Age of Onset Diabetes Mother living at age 87. congestive failure, COPD Heart Father in his 70's, several MD's other (pancreatic cancer [Other]) Brother at age 58 Colon Cancer Son at age 20 PAST MEDICAL HISTORY Diagnosis Date Adenocarcinoma of left lung (HCC) COPD (chronic obstructive pulmonary disease) (HCC) IFG (impaired fasting glucose) Myalgia and myositis, unspecified 01/23/2007 Obesity, unspecified 01/23/2007 Palpitations 01/23/2007 Shortness of breath 01/23/2007 Unspecified hypothyroidism 01/23/2007 Unspecified sleep apnea 01/23/2007 PAST SURGICAL HISTORY Procedure Laterality Date CHOLECYSTECTOMY Cholecystectomy PAST SURGICAL HISTORY OF repair of fractured jaw TOTAL ABDOMINAL HYSTERECT W/WO RMVL TUBE OVARY Hysterectomy, BRIANA ROS: All of the following reviewed and negative except as noted below: Significant per HPI GENERAL: no fever, chills, sweats, weight loss, fatigue, generalized weakness HEENT: no headache, vision changes, eye discomfort, hearing change, ear discomfort, sinus pain, nasal discharge or congestion, oral lesions, soreness, dental problem NECK: no adenopathy, discomfort, change in ROM CHEST: See HPI HEART: no chest pain, palpitations, syncope ABDOMEN: no nausea, vomiting, constipation, diarrhea, abdominal pain : no dysuria, urgency, frequency, history of stones, inco (more content not included)...[facility]09-27-2023 NoteHNO ID: [id number] Author: Chary Portillo MD Service: Pain Management Author Type: Physician Type: Progress Notes Filed: 07/06/2023 10:53 AM Note Text: Name: JESSICA ASH Age: [age] year old PAIN MANAGEMENT: s/p ROSETTA lobectomy, mediastinal LN dissection Pain Description: Patient complains of cough with increased pleuritic type pain. Tolerating Dilaudid 0.4 mg IV dose. Interval HPI: No acute events overnight. Patient has ambulated without complication. Has left chest tube 24H Comfort Meds: Dilaudid 0.4 mg x 6 Ativan 1 mg x 1, 0.5 mg x 2 Subjective HPI: 78-year-old female with history of COPD, remote tobacco abuse, ANA (intolerant of CPAP) admitted 07/04 For ROSETTA lobectomy, mediastinal LN dissection for resection left upper lobe non-small cell lung cancer (biopsy favoring adenocarcinoma). RT was asked to assist in postop pain management. Patient has extensive allergy list (29) with multiple intolerances/allergies to pain medications including Tylenol, codeine, Dilaudid, ibuprofen, Toradol, morphine, naproxen and tramadol. Patient did receive Dilaudid dose and tolerated it. Patient unable to tell me what her reaction is to these pain medications. Of note, she is prescribed Ativan 1 mg up to 3 times daily. Patient states she usually takes Ativan 0.5 mg twice daily and 1 mg at bedtime. OARRS Review: 17 prescriptions from 1 prescriber. Benzodiazepine dependent. Most recent prescriptions: 05/10, 06/20 Ativan 1 mg #90 (30-day supply) Current Facility-Administered Medications Medication Dose Route Frequency Provider Last Rate Last Admin sodium phosphate 45 mmol in D5W 250 mL 45 mmol INTRAVENOUS ONCE Dell Ashley, escitalopram oxalate 20 mg tab(s) (LEXAPRO) 20 mg ORAL DAILY Brisa Russell PA-C 20 mg at 07/05/232132 levothyroxine 50 mcg tab(s) (SYNTHROID) 50 mcg ORAL DAILY (6 AM) Brisa Russell PA-C 50 mcg at 07/06/23 0652 enoxaparin 40 mg injection (LOVENOX) 40 mg SUBCUTANEOUS DAILY Brisa Russell PA-C 40 mg at 07/05/23 0945 NaCl 0.9% iv flush bag 20 mL INTRAVENOUS PRN Brisa Russell PA-C 20 mL/hr at 07/04/23 1649 20 mL at 07/04/23 1649 HYDROmorphone (PF) 0.2-0.4 mg injection (DILAUDID) 0.2-0.4 mg INTRAVENOUS q 3 H PRN Chary Portillo MD 0.4 mg at 07/06/23 0652 LORazepam 0.5-1 mg tab(s) (ATIVAN) 0.5-1 mg ORAL TID PRN Chary Portillo MD 0.5 mg at 07/06/23 0652 neomycin/polymyxin B/hydrocort ([id number] OPHTHALMIC), Use in eyes as directed., Disp: , Rfl: [id number] 3.5 MG/ML-10,000 UNIT/ML-0.1% EYE DROPS, Use 1 application in both eyes as directed., Disp: , Rfl: olopatadine (PATANOL) 0.1 % ophthalmic solution, INSTILL 1 DROP INTO BOTH EYES TWICE DAILY NEEDED AT 6-8 HOUR INTERVALS., Disp: , Rfl: , 07/03/2023 levothyroxine (SYNTHROID) 50 mcg tablet, Take 50 mcg by mouth. Two tablet at breakfast, pt only takes synthroid not levothyroxine, Disp: , Rfl: , 07/04/2023 at 0445 escitalopram oxalate (LEXAPRO) 20 mg tablet, Take 20 mg by mouth once daily., Disp: , Rfl: , 07/03/2023 lorazepam (ATIVAN) 1 mg ORAL Tab, Take 1 mg by mouth three times daily as needed., Disp: , Rfl: 0, 07/04/2023 at 0445 Social History Tobacco Use Smoking status: Former Packs/day: 3.00 Years: 30.00 Additional pack years: 0.00 Total pack years: 90.00 Types: Cigarettes Quit date: 1994 Years since quittin.7 Smokeless tobacco: Never Tobacco comments: quit 1994 Substance Use Topics Alcohol use: No FAMILY HISTORY Problem Relation Age of Onset Diabetes Mother living at age 87. congestive failure, COPD Heart Father in his 70's, several MD's other (pancreatic cancer [Other]) Brother at age 58 Colon Cancer Son at age 20 PAST MEDICAL HISTORY Diagnosis Date Adenocarcinoma of left lung (HCC) COPD (chronic obstructive pulmonary disease) (HCC) IFG (impaired fasting glucose) Myalgia and myositis, unspecified 01/23/2007 Obesity, unspecified 01/23/2007 Palpitations 01/23/2007 Shortness of breath 01/23/2007 Unspecified hypothyroidism 01/23/2007 Unspecified sleep apnea 01/23/2007 PAST SURGICAL HISTORY Procedure Laterality Date CHOLECYSTECTOMY Cholecystectomy PAST SURGICAL HISTORY OF repair of fractured jaw TOTAL ABDOMINAL HYSTERECT W/WO RMVL TUBE OVARY Hysterectomy, BRIANA ROS: All of the following reviewed and negative except as noted below: Significant per HPI GENERAL: no fever, chills, sweats, weight loss, fatigue, generalized weakness HEENT: no headache, vision changes, eye discomfort, hearing change, ear discomfort, sinus pain, nasal discharge or congestion, oral lesions, soreness, dental problem NECK: no adenopathy, discomfort, change in ROM CHEST: See HPI HEART: no chest pain, palpitations, syncope ABDOMEN: no nausea, vomiting, constipation, diarrhea, abdominal pain : no dysuria, urgency, frequency, history of stones, incontinence NEURO: no confusion or (more content not included)...[facility]09-27-2023 NoteHNO ID: [id number] Author: Shade Riley MD Service: General Surgery Author Type: Physician Type: Progress Notes Filed: 07/07/2023 3:36 PM Note Text: Thoracic Surgery Progress Note SERVICE DATE: July 06, 2023 Thoracic Service Pager: For questions or concerns Mon-Tue 6a-5p please page [phone]. After 5pm and on Weekends and Holidays, please page [phone] if in ICU or [phone] if on RNF. Subjective SUBJECTIVE: POD2 from left upper lobe lobectomy due to ROSETTA nodule. Reports doing well overnight. Pain has been controlled with current pain regimen. Has taken 2 walks without complication and has been using her incentive spirometer. Left chest tube is in place and at -20sxn with 140cc SS output documented. No concerns from nursing overnight. Diet: DIET REGULAR Objective OBJECTIVE: Vitals: Temp (24hrs), Av.6 ?C (99.7 ?F), Min:36.5 ?C (97.7 ?F), Max:38.1 ?C (100.6 ?F) BP 123/57 Pulse 61 Temp 36.5 ?C (97.7 ?F) Resp 22 SpO2 98% O2 Therapy: Nasal Cannula IANDO: Date 07/05/23 07 - 07/06/23 0659 07/06/23 07 - 07/07/23 0659 Shift 1782-7740 1339-0832 9086-5323 24 Hour Total 8863-4313 0472-8779 0725-8904 24 Hour Total INTAKE PO 300 300 PO 300 300 Shift Total 300 300 OUTPUT Urine 300 548 334 2880 Void (ml) 157 231 4419 Output ([REMOVED] Indwelling Urinary Catheter 07/04/23 [facility] Temperature Monitoring 16 Fr 07/05/23 1035) 300 300 Chest Tube 90 50 140 Chest Tube Output (Chest Tube 07/04/23 Left Pleural 32 Fr Tube #1) 90 50 140 Shift Total 390 832 795 6010 Weight (kg) MEDICATIONS Current Facility-Administered Medications Medication Dose Route Frequency sodium phosphate 45 mmol in D5W 250 mL 45 mmol INTRAVENOUS ONCE escitalopram oxalate 20 mg tab(s) (LEXAPRO) 20 mg ORAL DAILY levothyroxine 50 mcg tab(s) (SYNTHROID) 50 mcg ORAL DAILY (6 AM) enoxaparin 40 mg injection (LOVENOX) 40 mg SUBCUTANEOUS DAILY NaCl 0.9% iv flush bag 20 mL INTRAVENOUS PRN HYDROmorphone (PF) 0.2-0.4 mg injection (DILAUDID) 0.2-0.4 mg INTRAVENOUS q 3 H PRN LORazepam 0.5-1 mg tab(s) (ATIVAN) 0.5-1 mg ORAL TID PRN Labs: Recent Labs 07/06/23 0418 07/05/23 0602 07/04/23 1600 NA 131* 133* -- K 4.5 4.5 -- CHLOR 97 100 -- CO2 26 24 -- BUN 21 18 -- CREAT 0.77 0.69 -- GLUC 138* 156* -- ANION 8* 9 -- CA 9.1 8.4* -- MG 2.5* -- -- P 2.8 -- -- WBC 12.20* 10.66 -- HB 11.7 11.8 -- HCT 35.9* 36.1 -- PLT 162 225 -- LACT -- -- 1.1 PH -- -- 7.26* PCO2 -- -- 56* PO2 -- -- 85 HCO3 -- -- 24 Physical Exam: General: Alert and oriented x 3. No acute distress. HEENT: Atraumatic, no midline tenderness, no step off deformities. CV: RR, good capillary refill. Respiratory: Unlabored breathing on 2LNC, equal chest rise bilaterally. L CT on -20 sxn with 140 cc SS output with no air leak. Abdomen: Soft, nondistended, NTP, no rebound, guarding. Neuro: AANDOx3, CNII-XII grossly intact, sensorimotor function grossly intact. Heme: No bleeding, no ecchymoses. Skin: Skin warm and dry. EXT: AROM grossly wnl in all four extremities. Assessment AND Plan ASSESSMENT AND PLAN: Assessment Active Hospital Problems Diagnosis Date Noted S/P lobectomy of lung 07/04/2023 Assessment: 78 year old female s/p left upper lobe lobectomy on 07/04/23 for ROSETTA nodule with biopsy sample c/f non small cell. Hospital Course/Operations/Procedures: 07/04/2023 Procedure(s): LEFT UPPER LUNG LOBECTOMY, INTERCOSTAL BLOCK X4 WITH CRYO MEDIASTINAL LYMPH NODE DISSECTION BRONCHOSCOPY FLEXIBLE ADULT Plan: - Maintain CT to -20 sxn. - Daily CXR while CT in place. - Showing atelectasis at left lung base. Chest tube appears stable. No pneumothorax. Awaiting formal read. - Pain control: many allergies making pain regimen difficult. Currently tolerating prn dilaudid. Pain management consulted for recommendations. - F/up final pathology. - LVX for DVT ppx. - Regular diet. - Encouraged ambulation, out of bed, and IS use. - Plan to transfer to [facility] this morning. Will d/w Dr. Riley. SIGNATURE: Mesfin Pierce DO PATIENT NAME: Jessica Ash DATE: July 06, 2023 TIME: 6:21 AM Pager: [phone] Thoracic Service Pager: For questions or concerns Tue-Tue 6a-5p please page [phone]. After 5pm and on Weekends and Holidays, please page [phone] if in ICU or [phone] [facility]. I personally saw and examined the patient on 07/06. I reviewed the resident's note. I agree with the resident's assessment and plan unless otherwise noted.[facility]09-26-2023 NoteHNO ID: [id number] Author: April Mandujano MD Service: General Surgery Author Type: Resident Type: Plan of Care Filed: 07/05/2023 1:56 PM Note Text: General Surgery Plan of Care: Notified by the bedside nurse regarding patient taking unknown PO liquids from home. Spoke with the patient and her family. Patient states her physician/sql bi developer Jennifer Love prescribed these drops to expose her to her allergens and that she takes them at home. Drops include anti-allergens for the following: glycerin, phenol, ragweed, mold, newsprint, pollens, ethanol and trees. April Mandujano MD 1:48 PM 07/05/2023 Pager #[phone]09-26-2023 NoteHNO ID: [id number] Author: Adriana Carrero, [facility] Service: Pharmacy Author Type: Pharmacist Type: Plan of Care Filed: 07/08/2023 1:24 PM Note Text: PHARMACY MEDICATION REVIEW Patient Name: Jessica Ash : 1945 Addendum July 08, 2023 Adriana Carrero (Pharmacist) Spoke to pt yesterday 07/07/2023 and per pt, she has been taking her escitalopram as 10 mg daily and has been controlled with this- I did see that Rx is 20 mg daily, however, she has been stable with the 10 mg daily so will adjust Rx as is Med rec reviewed by pharmacist. Joslyn Flores [facility] 07/06/2023 The following medications were updated within the [facility] medication list: Medications ADDED to [facility] medication list [id number] 3.5 MG/ML-10,000 UNIT/ML-0.1% EYE DROPS OTHER, Patient Yes Yes neomycin/polymyxin B/hydrocort ([id number] OPHTHALMIC) OTHER, Patient Yes Yes RX filled on 05/03/2023 for 14 and 15ds. Pt. states she uses PRN. Medications CHANGED on [facility] medication list Medications REMOVED from [facility] medication list EPINEPHrine (EPIPEN) 0.3 mg/0.3 mL auto-injector Other Not using per pt. No RX found via [employer] [facility] Additional comments: I was able to talk with pt, about her home medications. She was able to confirm 6 medications recorded below on the [facility] list. I have added 2 medications to the [facility] list as found via [employer] [facility]-script and also confirmed by pt. I have removed 1 medication from the [facility] list that the pt. states she does not take. Pt. states her pharmacy of choice is [facility]. Required follow up actions for nursing: Medication history completed by Historian. No nursing follow up required. The below information represents the best possible medication history: Yes Medication history completed by: Auto Finance Sales Rep: Kristian Thao ([employer] Source of history: Patient: Reliability of source: Appears reliable, clearly identified: Medication name, Medication dose, and Medication frequency and Pharmacy records: [facility] [facility] retail pharmacy. Medication nonadherence identified: No barriers noted Reconciliation completed: Yes Completed by: DARLINE and [facility] All [facility] medications addressed by DARLINE Patient interested in [facility] Delivery Services or using OP Pharmacy at discharge? No Preferred outpatient pharmacy: e- [facility] [place] [place] [id number] [address] - [phone] [id number] e- [facility]/pharmacy #[id number] [place] [phone] [facility]. - [phone] [facility] [phone] Allergies: Prochlorperazine Anaphylaxis Comment:Compazine Acetaminophen Rash Comment:Other reaction(s): Rash Albuterol Other: See Comments Comment:heart racing. BP flucuating All Antibiotics [Ot* Other: See Comments Comment:Especially Bactrim and PCN All Pain Meds [Othe* Aspirin Shortness of Breath Comment:Other reaction(s): Shortness of breath Betadine [Povidone-* Cephalexin Unknown Comment:Other reaction(s): Unknown Codeine Unknown Comment:Other reaction(s): Unknown Compazine [Prochlor* Anaphylaxis Ct Scan Dye [Other] Anaphylaxis Diphenhydramine Hives Comment:Other reaction(s): Hives Doxycycline Unknown Comment:Other reaction(s): Unknown Egg Unknown Erythromycin Base Unknown Comment:Other reaction(s): Unknown Hydromorphone Unknown Ibuprofen Unknown Comment:Other reaction(s): Unknown Ketorolac Shortness of Breath Latex Lidocaine Swelling, Itching Comment:Other reaction(s): Unknown Morphine Unknown Naproxen Unknown Nsaids (Non-Steroid* Anaphylaxis Ondansetron Unknown Penicillins Unknown Comment:Other reaction(s): Unknown Soap Sulfa (Sulfonamide * Unknown Tramadol Shortness of Breath Vegetables [Other] Prior to Admission Medications Prescriptions Last Dose Informant Patient Reported? Taking? INGOPXNP-[id number] 3.5 MG/ML-10,000 UNIT/ML-0.1% EYE DROPS OTHER, Patient Yes Yes Sig: Use 1 application in both eyes as directed. escitalopram oxalate (LEXAPRO) 20 mg tablet 07/03/2023 Patient, OTHER Yes Yes Sig: Take 20 mg by mouth once daily. levothyroxine (SYNTHROID) 50 mcg tablet 07/04/2023 at 0445 OTHER Yes Yes Sig: Take 50 mcg by mouth. Two tablet at breakfast, pt only takes synthroid not levothyroxine lorazepam (ATIVAN) 1 mg ORAL Tab 07/04/2023 at 0445 Patient, OTHER Yes Yes Sig: Take 1 mg by mouth three times daily as needed. neomycin/polymyxin B/hydrocort ([id number] OPHTHALMIC) OTHER, Patient Yes Yes Sig: Use in eyes as directed. olopatadine (PATANOL) 0.1 % ophthalmic solution 07/03/2023 Patient Yes Yes Sig: INSTILL 1 DROP INTO BOTH EYES TWICE DAILY NEEDED AT 6-8 HOUR INTERVALS. Facility-Administered Medications: None Kristian Thao (Mechanical Engineering Officer) phone [phone] 07/05/2023[facility]09-26-2023 NoteHNO ID: [id number] Author: Chary Portillo MD Service: Pain Management Author Type: Physician Type: Progress Notes Filed: 07/05/2023 5:01 PM Note Text: Name: JESSICA ASH Age: [age] year old PAIN MANAGEMENT: s/p ROSETTA lobectomy, mediastinal LN dissection Pain Description: Sitting in chair; complains of pain left chest wall. Is tolerating Dilaudid IV dosing Interval HPI: Stable overnight; no acute events 24H Comfort Meds: Dilaudid 0.2 mg IV x1, 0.4 mg x 4 Ativan 1 mg x 2 Subjective HPI: 78-year-old female with history of COPD, remote tobacco abuse, ANA (intolerant of CPAP) admitted 07/04 For ROSETTA lobectomy, mediastinal LN dissection for resection left upper lobe non-small cell lung cancer (biopsy favoring adenocarcinoma). RT was asked to assist in postop pain management. Patient has extensive allergy list (29) with multiple intolerances/allergies to pain medications including Tylenol, codeine, Dilaudid, ibuprofen, Toradol, morphine, naproxen and tramadol. Patient did receive Dilaudid dose and tolerated it. Patient unable to tell me what her reaction is to these pain medications. Of note, she is prescribed Ativan 1 mg up to 3 times daily. Patient states she usually takes Ativan 0.5 mg twice daily and 1 mg at bedtime. OARRS Review: 17 prescriptions from 1 prescriber. Benzodiazepine dependent. Most recent prescriptions: 05/10, 06/20 Ativan 1 mg #90 (30-day supply) Current Facility-Administered Medications Medication Dose Route Frequency Provider Last Rate Last Admin escitalopram oxalate 20 mg tab(s) (LEXAPRO) 20 mg ORAL DAILY Brisa Russell PA-C 20 mg at 07/04/232039 levothyroxine 50 mcg tab(s) (SYNTHROID) 50 mcg ORAL DAILY (6 AM) Brisa Russell PA-C 50 mcg at 07/05/23 0558 enoxaparin 40 mg injection (LOVENOX) 40 mg SUBCUTANEOUS DAILY Brisa Russell PA-C 40 mg at 07/05/23 0945 NaCl 0.9% iv flush bag 20 mL INTRAVENOUS PRN Brisa Russell PA-C 20 mL/hr at 07/04/23 1649 20 mL at 07/04/23 1649 HYDROmorphone (PF) 0.2-0.4 mg injection (DILAUDID) 0.2-0.4 mg INTRAVENOUS q 3 H PRN Chary Portillo MD 0.4 mg at 07/05/23 1456 LORazepam 0.5-1 mg tab(s) (ATIVAN) 0.5-1 mg ORAL TID PRN Chary Portillo MD 0.5 mg at 07/05/23 1414 neomycin/polymyxin B/hydrocort ([id number] OPHTHALMIC), Use in eyes as directed., Disp: , Rfl: [id number] 3.5 MG/ML-10,000 UNIT/ML-0.1% EYE DROPS, Use 1 application in both eyes as directed., Disp: , Rfl: olopatadine (PATANOL) 0.1 % ophthalmic solution, INSTILL 1 DROP INTO BOTH EYES TWICE DAILY NEEDED AT 6-8 HOUR INTERVALS., Disp: , Rfl: , 07/03/2023 levothyroxine (SYNTHROID) 50 mcg tablet, Take 50 mcg by mouth. Two tablet at breakfast, pt only takes synthroid not levothyroxine, Disp: , Rfl: , 07/04/2023 at 0445 escitalopram oxalate (LEXAPRO) 20 mg tablet, Take 20 mg by mouth once daily., Disp: , Rfl: , 07/03/2023 lorazepam (ATIVAN) 1 mg ORAL Tab, Take 1 mg by mouth three times daily as needed., Disp: , Rfl: 0, 07/04/2023 at 0445 Social History Tobacco Use Smoking status: Former Packs/day: 3.00 Years: 30.00 Additional pack years: 0.00 Total pack years: 90.00 Types: Cigarettes Quit date: 1994 Years since quittin.7 Smokeless tobacco: Never Tobacco comments: quit 1994 Substance Use Topics Alcohol use: No FAMILY HISTORY Problem Relation Age of Onset Diabetes Mother living at age 87. congestive failure, COPD Heart Father in his 70's, several MD's other (pancreatic cancer [Other]) Brother at age 58 Colon Cancer Son at age 20 PAST MEDICAL HISTORY Diagnosis Date Adenocarcinoma of left lung (HCC) COPD (chronic obstructive pulmonary disease) (HCC) IFG (impaired fasting glucose) Myalgia and myositis, unspecified 01/23/2007 Obesity, unspecified 01/23/2007 Palpitations 01/23/2007 Shortness of breath 01/23/2007 Unspecified hypothyroidism 01/23/2007 Unspecified sleep apnea 01/23/2007 PAST SURGICAL HISTORY Procedure Laterality Date CHOLECYSTECTOMY Cholecystectomy PAST SURGICAL HISTORY OF repair of fractured jaw TOTAL ABDOMINAL HYSTERECT W/WO RMVL TUBE OVARY Hysterectomy, BRIANA ROS: All of the following reviewed and negative except as noted below: Significant per HPI GENERAL: no fever, chills, sweats, weight loss, fatigue, generalized weakness HEENT: no headache, vision changes, eye discomfort, hearing change, ear discomfort, sinus pain, nasal discharge or congestion, oral lesions, soreness, dental problem NECK: no adenopathy, discomfort, change in ROM CHEST: See HPI HEART: no chest pain, palpitations, syncope ABDOMEN: no nausea, vomiting, constipation, diarrhea, abdominal pain : no dysuria, urgency, frequency, history of stones, incontinence NEURO: no confusion or alteration in consciousness, slurred speech, seizure, focal weakness EXTREMITIES: no new pain, edema, change in ROM HEME: no new adenopathy, bruises, petechi (more content not included)...[facility]09-25-2023 NoteHNO ID: [id number] Author: Carmella Coyne APRN.BUSINESS ASSOCIATE Service: Nursing Author Type: Nurse Food Safety Director Type: Anesthesia Procedure Notes Filed: 07/04/2023 9:19 AM Note Text: ANESTHESIOLOGY PROCEDURE NOTE Airway General Information Procedure Start Time/Medication Administration: 07/04/2023 9:03 AM Procedure End Time: 07/04/2023 9:04 AM Patient location during procedure: OR Timeout Performed Pre-procedure: timeout performed Consent Obtained: Yes Patient identity confirmed: arm band and patient Staffing BUSINESS ASSOCIATE: Camrella Coyne APRN.BUSINESS ASSOCIATE Performed by: BUSINESS ASSOCIATE Indications and Patient Condition Indications for airway management: anesthesia and airway protection Preoxygenated: yes anesthesia circuit Patient position: sniffing Method: asleep Airway Accessory: oral airway Final Airway Details Final airway type: endotracheal airway Final Endotracheal Airway: ETT Cuffed: yes Successful intubation technique: direct laryngoscopy Endotracheal tube insertion site: oral Blade: Yaron Blade size: #4 ETT size (mm): 8.0 Measured from: lips Measurement (cm): 24 Placement verified by: chest auscultation and capnometry Cormack-Lehane Classification: grade I - full view of glottis Number of attempts at approach: 1 Airway not difficult SIGNATURE: Carmella Coyne APRN.CRNA PATIENT NAME: Jessica Ash DATE: July 04, 2023 TIME: 9:18 AM CSN: [id number]09-[facility] NoteHNO ID: [id number] Author: Soni Smart RN Service: Nursing Author Type: Registered Nurse Type: Nursing Progress Note Filed: 07/04/2023 8:01 AM Note Text: Patient has on right lower abd (pannis) 2-3 inch area reddened./irritated, no drainage notedSouthern [facility]09-[facility]-2023 NoteHNO ID: [id number] Author: Beatriz Dobbins RN Service: Nursing Author Type: Registered Nurse Type: Nursing Progress Note Filed: 07/01/2023 12:47 PM Note Text: Dr. Bradshaw at bedside checking on patient.[facility]09-22-2023 Nurse Note* Beatriz Dobbins RN - 07/01/2023 12:[address] Bradshaw at bedside checking on patient. * Marian Davies RN - 07/01/2023 11:30 AM EDT 1227 48FR BOUGIE DILATOR USED BY DR BRADSHAW. 1229 50FR BOUGIE DILATOR USED BY DR BRADSHAW. documented in this [facility]23 NoteHNO ID: [id number] Author: Evelyne Lao APRN.CRNA Service: Anesthesiology Author Type: Nurse Food Safety Director Type: Anesthesia Procedure Notes Filed: 07/01/2023 12:26 PM Note Text: ANESTHESIOLOGY PROCEDURE NOTE Airway General Information Procedure Start Time/Medication Administration: 07/01/2023 12:19 PM Patient location during procedure: OR Timeout Performed Pre-procedure: timeout performed Consent Obtained: Yes Patient identity confirmed: arm band Staffing BUSINESS ASSOCIATE: Evelyne Lao APRN.BUSINESS ASSOCIATE Performed by: GAURI Indications and Patient Condition Indications for airway management: anesthesia Preoxygenated: yes anesthesia circuit Patient position: sniffing Method: asleep Difficult Mask: No Airway Accessory: oral airway Final Airway Details Final airway type: endotracheal airway Final Endotracheal Airway: ETT Cuffed: yes Successful intubation technique: direct laryngoscopy Devices used: intubating stylet Endotracheal tube insertion site: oral Blade: Yaron Blade size: #3 ETT size (mm): 7.0 Measured from: lips Measurement (cm): 22 Placement verified by: chest auscultation and capnometry Cormack-Lehane Classification: grade I - full view of glottis Number of attempts at approach: 1 SIGNATURE: Evelyne Lao APRN.CRNA PATIENT NAME: Jessica Ash DATE: July 01, 2023 TIME: 12:25 PM CSN: [id number] [facility] Care09-22-2023 History of Present illness Narrative* Omar Galvez PA - 07/01/2023 11:30 AM EDT H&P done 06/27/[address] Bradshaw. documented in this encounterOhio [facility]09-22-2023 NoteHNO ID: [id number] Author: Marian Davies, ZEN Service: Nursing Author Type: Registered Nurse Type: Nursing Progress Note Filed: 07/01/2023 12:40 PM Note Text: 1227 48FR BOUGIE DILATOR USED BY DR BRADSHAW. 1229 50FR BOUGIE DILATOR USED BY DR BRADSHAW.[facility]09-22-2023 NoteHNO ID: [id number] Author: Omar Galvez PA Service: Anesthesiology Author Type: Physician Teaching Dietitian Type: Progress Notes Filed: 07/01/2023 11:07 AM Note Text: HANDP done 06/27/[address] Bradshaw.[facility]09-22-2023 Surgical operation note* Operative Report - Dae Bradshaw MD - 07/01/2023 11:30 AM EDT OPERATIVE/PROCEDURE REPORT LOG ID: [id number] Surgery/Procedure Date: 07/01/2023 Incision/Procedure Start Time: 12:20 PM Incision Close/Procedure End Time: 12:35 PM Surgeon(s)/Proceduralist(s) and Teaching Dietitian(s): Emmanuel Bradshaw MD No Additional Staff Procedure(s): Esophagogastroduodenoscopy (EGD) with biopsy and bougie dilation Anesthesia: Monitored anesthesia care Brief History: abnormal PET scan in esophagus, hx of GERD, mid chest dysphagia Procedure Details: The patient was placed in the left lateral decubitus position. A bite block was placed and medications administered as above. The Olympus gastroscope was used to intubate the oropharynx and esophagus with ease. We proceeded down to the second part of the duodenum. The duodenal mucosa and bulb appeared normal. We then withdrew into the stomach and visualized some mild patchy gastritis in the antrum and nl body. Biopsies were taken to rule out H. Pylori. Retroflexion was performed and this showed a normal fundus and cardia. The squamocolumnar junction, GE junction at 37 cm revealed a small island that was near 1 cm, so bx done. There was no stricture but empiric bougie dilation was done w 48, 50 Fr nelson/bougie dilators w min to mild, mild to mod resistance. Trace heme attributed to bx done. I reinserted the scope and no trauma seen.The scope was then withdrawn and the patient tolerated the procedure well. Pre-Op/Pre-Procedure Diagnosis: as above Post-Op/Post-Procedure Diagnosis: Antral gastritis 2. No esoph stricture s/p empiric bougie dilation Specimens: See above EBL: None Complications: None Recommendations:1. Pantoprazole 20 mg daily 2. F/up path 3. Ok to proceed w surgery on Tuesday I/primary surgeon/proceduralist performed the entire procedure. Dae Bradshaw MD SIGNATURE: Dae Bradshaw MD PATIENT NAME: Jessica Ash DATE: July 01, 2023 TIME: 12:39 PM PAGER/CONTACT #: [email or web address] documented in this encounterOhio [facility]09-22-2023 NoteHNO ID: [id number] Author: Evelyne Gallardo RN Service: Nursing Author Type: Registered Nurse Type: Nursing Progress Note Filed: 07/01/2023 10:37 AM Note Text: Spoke with Ravinder in blood bank, will need conf ABO.[facility] 07-01-2023 History of Present illness Narrative* LatoyaLunaXochiltSHASHA.DRIVER RECRUITER - 07/01/2023 9:00 AM EDT Images from the original note were not included. HISTORY and PHYSICAL CARDIOTHORACIC SURGERY HPI: (per Dr. Riley) This is a 78 year old woman referred for evaluation of a left upper lobe nonsmall cell lung cancer and for consideration for resection. She complains of long standing exertional dyspnea. A left upper lobe lesion was identified on CXR. Subsequent CT scans of the chest performed in October and November showing stable 2.3 cm area of consolidation within the left upper lobe with stable central nodular density; no adenopathy; no effusion. PET scanning 04/15 was positive at this site for hypermetabolism with SUV 12.9. A new second hypermetabolic nodule is identified in the leftupper lobe laterally and anteriorly, pleural based, measuring 1.6 x 1.1 cm with SUV 4.1. No hypermet abolic mediastinal lymph nodes. There is hypermetabolsim associated with the distal esophagus with SUV 6.8 (felt to be inflammatory).. CT guided biopsy is positive for nonsmall cell cancer, favoring adenocarcinoma. Bronchoscopic EBUS evaluation of the mediastinum is negative at stations 11R, 4R, 4L, 7, 11L. By report, her recent PFTs are good with FEV1 of 70% and normal DLCO; I do not have documentationat hand. She denies cough, sputum, hemoptysis, weight loss, new pain. She endorses some episodes of chest pressure with exertion. She denies any h/o CAD, CHF, previous heart cath, or stress test. She is a remote smoker. She has COPD. She has ANA. She does not tolerate CPAP treatment. She has multiple drug allergies and/or intolerances, which has made previous procedural sedation and pain control difficult to navigate. Pt states that she is ready for the procedure. States she continues to have some clear to white sputum with her chronic cough. Continues to have abdominal and upper GI discomfort. She states she is schedule for her EGD today. Denies complaints of lightheadedness, dizziness, n/v/d, dysuria, chest pain, palpitations, difficulty breathing or SOB. PAST MEDICAL HISTORY: PAST MEDICAL HISTORY Diagnosis Date Adenocarcinoma of left lung (HCC) COPD (chronic obstructive pulmonary disease) (HCC) IFG (impaired fasting glucose) Myalgia and myositis, unspecified 01/23/2007 Obesity, unspecified 01/23/2007 Palpitations 01/23/2007 Shortness of breath 01/23/2007 Unspecified hypothyroidism 01/23/2007 Unspecified sleep apnea 01/23/2007 PAST SURGICAL HISTORY: PAST SURGICAL HISTORY Procedure Laterality Date CHOLECYSTECTOMY Cholecystectomy PAST SURGICAL HISTORY OF repair of fractured jaw TOTAL ABDOMINAL HYSTERECT W/WO RMVL TUBE OVARY Hysterectomy, BRIANA FAMILY HISTORY: FAMILY HISTORY Problem Relation Age of Onset Diabetes Mother living at age 87. congestive failure, COPD Heart Father in his 70's, several MD's other (pancreatic cancer [Other]) Brother at age 58 Colon Cancer Son at age 20 SOCIAL HISTORY: Social History Tobacco Use Smoking status: Former Packs/day: 3.00 Years: 30.00 Additional pack years: 0.00 Total pack years: 90.00 Types: Cigarettes Quit date: 1994 Years since quittin.7 Smokeless tobacco: Never Tobacco comments: quit 1994 Substance Use Topics Alcohol use: No SOCIAL HISTORY OF IVDU: No SOCIAL HISTORY OF Smoking: Yes SOCIAL HISTORY OF Alcohol Dependency: No MEDICATIONS: Prior to Admission Medications: blood sugar diagnostic (ONETOUCH ULTRA BLUE TEST STRIP [facility] [place])^USE TO TEST BLOOD SUGAR DAILY DX E11.9^Disp: ^Rfl: olopatadine (PATANOL) 0.1 % ophthalmic solution^INSTILL 1 DROP INTO BOTH EYES TWICE DAILY NEEDEDAT 6-8 HOUR INTERVALS.^Disp: ^Rfl: levothyroxine (SYNTHROID) 50 mcg tablet^Take 50 mcg by mouth. Two tablet at breakfast, pt only takes synthroid not levothyroxine^Disp: ^Rfl: escitalopram oxalate (LEXAPRO) 20 mg tablet^Take 20 mg by mouth once daily.^Disp: ^Rfl: lorazepam (ATIVAN) 1 mg ORAL Tab^Take 1 mg by mouth three times daily as needed.^Disp: ^Rfl: [address] (PROTONIX) 20 mg tablet^Take 1 tablet by mouth once daily.^Disp: 30 tablet^Rfl: 2 EPINEPHrine (EPIPEN) 0.3 mg/0.3 mL auto-injector^as needed^Disp: 1 Each^Rfl: 1 (Patient not taking:Reported on 07/01/2023) No current facility-administered medications for this visit. Facility-Administered Medications Ordered in Other Visits Medication Dose Route Frequency lactated ringers iv infusion 125 mL/hr INTRAVENOUS CONTINUOUS ALLERGIES: ALLERGIES Allergen Reactions Prochlorperazine Anaphylaxis Compazine Acetaminophen Rash Other reaction(s): Rash Albuterol Other: See Comments heart racing. BP flucuating All Antibiotics [Ot* Other: See Comments Especially Bactrim and PCN All Pain Meds [Othe* Aspirin Shortness of Breath Other reaction(s): Shortness of breath Betadine [Povidone-* Cephalexin Unknown Other reaction(s): Unknown Codeine Unknown Other reaction(s): Unknown Compazine [Prochlor* Anaphylaxis Ct Scan Dye [Other] Anaphylaxis Diphenhydramine Hives Other reaction(s): Hives Doxycycline Unknown Other reaction(s): Unknown Egg Unknown Erythromycin Base Unknown Other reaction(s): Unknown Hydromorphone Unknown Ibuprofen Unknown Other reaction(s): Unknown Ketorolac Shortness of Breath Latex Lidocaine Swelling, Itching Other reaction(s): Unknown Morphine Unknown Naproxen Unknown Nsaids (Non-Steroid* Anaphylaxis Ondansetron Unknown Penicillins Unknown Other reaction(s): Unknown Soap Sulfa (Sulfonamide * Unknown Tramadol Shortness of Breath Vegetables [Other] COMPLETE REVIEW OF SYSTEMS: (10) Constitutional: No weight loss, malaise or fevers. HEENT: Negative for frequent or significant headaches, No changes in hearing or vision, no nose bleeds or other nasal problems, See HPI Resp: Negative for wheezing and chest pain and Positive for shortness of breath on exertion and SeeHPI Cardiovascular: Negative for chest pain, leg swelling or palpitations GI: Negative for blood in stools or black stools or change in bowel habits. Does c/o dysphagia and RUQ pain. : No history of dysuria, frequency, or incontinence Endo: Negative for cold or heat intolerance, polyuria, polydipsia and goiter Heme/Lymph: Negative for prolonged bleeding, bruising easily or swollen nodes Neurologic: No history or headaches, syncope, paralysis, seizures or tremors Integumentary: Negative for lesions, rash, and itching. PHYSICAL EXAM: (8) BP 118/70 (BP Site: Left Arm, BP Position: Sitting) Pulse (!) 54 Resp 18 Ht 5' 5 (1.651 m) Wt 190 lb 6.4 oz (86.4 kg) BMI 31.68 kg/m Constitutional: Well developed and No acute distress HEENT: Sclera clear, Good dentition, and Neck supple Resp: Clear, Respiratory effort: normal, and Chest wall: symmetrical Cardiovascular: Regular rate & rhythm, S1, S2 normal, and Pulses palpable x4 extermities GI: Soft, Firm, Non-tender, and Bowel sounds present Integumentary: Warm and Dry Musculoskeletal: No deformities, MICHAEL x4 Neurological/Psychiatric: Oriented to time, place & person and Steady gait Labs: CMP: Lab Results Component Value Date Albumin 3.8 (L) 06/28/2023 Calcium, Total 8.8 06/28/2023 Bilirubin, Total 0.3 06/28/2023 Alkaline Phosphatase 87 06/28/2023 AST 18 06/28/2023 ALT 18 06/28/2023 Glucose 110 (H) 06/28/2023 BUN 23 (H) 06/28/2023 Creatinine 0.80 06/28/2023 Sodium 139 06/28/2023 Potassium 4.1 06/28/2023 Chloride 106 (H) 06/28/2023 CO2 24 06/28/2023 Anion Gap 9 06/28/2023 Estimated Glomerular Filtration Rate 76 06/28/2023 CBC: Lab Results Component Value Date WBC 5.85 06/28/2023 RBC 4.65 06/28/2023 Hemoglobin 13.4 06/28/2023 Hematocrit 41.1 06/28/2023 MCV 88.4 06/28/2023 MCH 28.8 06/28/2023 MCHC 32.6 06/28/2023 RDW-CV 14.8 06/28/2023 Platelet Count 233 06/28/2023 MPV 9.4 06/28/2023 Absolute nRBC <0.01 06/28/2023 INR PT: Lab Results Component Value Date PT Sec 9.6 06/28/2023 INR 0.9 06/28/2023 DATA: I have personally reviewed the following data: ECHO:07/30/23 CT Chest: 06/24/23 RESULT: Limitations: None. Lines, tubes, and devices: None. Lung parenchyma and airways: Semisolid and solid opacity within the left lung on image 52 measures 2.2 x 1.8 cm. Previously 1.5 x 1.3 cm at this level. A second lesion is seen on image 54 which measures 1.1 x 0.8 cm. This is new. This is solid. 4 mm nodule at the right lung base on image 97 is stable. The central airways are patent. Pleural space: No pleural effusion. No pleural thickening. Lower neck, lymph nodes, and mediastinum: The imaged thyroid gland is normal. Borderline mediastinal nodes measuring at or near 1 cm are stable. No definite developing lymphadenopathy in the supraclavicular, axillary, mediastinal, or hilar regions. Heart, pericardium, and thoracic vessels: The thoracic aorta and main pulmonary artery are normal in caliber. The cardiac chambers are normal in size. No coronary artery atherosclerotic calcifications are noted, although the study is not optimized for coronary assessment. No pericardial effusion orthickening. Bones and soft tissues: No destructive bone lesion. Chest wall is unremarkable. Degenerative changes throughout the spine. Mild superior wedging of L1 is stable. Upper abdomen: No abnormality in the imaged upper abdomen. County Library Director (topogram) images: No additional findings. PFTs:10/13/22 FEV1 78% DLCO 87% US ABD: 06/28/23 IMPRESSION: 1. Prior cholecystectomy. 2. Right renal parapelvic cyst. Stress Test:06/27/23 CONCLUSIONS: 1. SPECT Perfusion Study: Normal. 2. There is no scintigraphic evidence for inducible ischemia. 3. No evidence of scarred myocardium. 4. Left ventricle is normal in size. The left ventricle systolic function is normal. 5. Right ventricle is normal in size. The right ventricle systolic function is normal. 6. This is a low risk scan. Gated Stress FBP LVEF % 71 EGD: 06/27/23 Procedure completed, no report in Epic Impression: Jessica Kenia Dye is a 78 year old woman found to have a 2.3 cm left upper lobe tumor. Further eval with PET scan revealed development of a second hypermetabolic peripheral pleural based nodulein the left upper lobe. At least one of these nodules is biopsy proven to be non small cell cancer.This is c/w either a T1 lesion or T3, depending on the status of the second nodule. Plan: - Plans for ROSETTA lobectomy with sumeet dissection, either open or robotic, depending on robot availability on 07/04/[address] Riley - Unable to give ERAS protocol d/t multiple allergies - Anesthesia has been made aware of pt's multiple allergies. Notes from pt's sql bi developer has been given to both OR staff, anesthesia and Dr. Riley to prepare for pt. Special arrangements have been made for sedation. - CHG soap given to patient. Pt instructed to test soap on small area to be sure there is no reaction or sensitivity to product. - Pre-op labs reviewed and WNLs - Pre-op drinks and education provided - Pre-op teaching and consultation provided. Patient and family have no questions at this time, contact offered for further concerns/questions SIGNATURE:Xochilt Klein APRN.CNP Date of Service: 06/28/2023 Time of Service: 10:00 AM documented in this encounterOhio State [facility]ing [facility]09-22-2023 NoteHNO ID: [id number] Author: Xochilt Klein APRN.CNP Service: ? Author Type: Nurse Practitioner Type: Progress Notes Filed: 07/01/2023 2:23 PM Note Text: HISTORY and PHYSICAL CARDIOTHORACIC SURGERY HPI: (per Dr. Riley) This is a 78 year old woman referred for evaluation of a left upper lobe nonsmall cell lung cancer and for consideration for resection. She complains of long standing exertional dyspnea. A left upper lobe lesion was identified on CXR. Subsequent CT scans of the chest performed in October and November showing stable 2.3 cm area of consolidation within the left upper lobe with stable central nodular density; no adenopathy; no effusion. PET scanning 04/15 was positive at this site for hypermetabolism with SUV 12.9. A new second hypermetabolic nodule is identified in the left upper lobe laterally and anteriorly, pleural based, measuring 1.6 x 1.1 cm with SUV 4.1. No hypermetabolic mediastinal lymph nodes. There is hypermetabolsim associated with the distal esophagus with SUV 6.8 (felt to be inflammatory).. CT guided biopsy is positive for nonsmall cell cancer, favoring adenocarcinoma. Bronchoscopic EBUS evaluation of the mediastinum is negative at stations 11R, 4R, 4L, 7, 11L. By report, her recent PFTs are good with FEV1 of 70% and normal DLCO; I do not have documentation at hand. She denies cough, sputum, hemoptysis, weight loss, new pain. She endorses some episodes of chest pressure with exertion. She denies any h/o CAD, CHF, previous heart cath, or stress test. She is a remote smoker. She has COPD. She has ANA. She does not tolerate CPAP treatment. She has multiple drug allergies and/or intolerances, which has made previous procedural sedation and pain control difficult to navigate. Pt states that she is ready for the procedure. States she continues to have some clear to white sputum with her chronic cough. Continues to have abdominal and upper GI discomfort. She states she is schedule for her EGD today. Denies complaints of lightheadedness, dizziness, n/v/d, dysuria, chest pain, palpitations, difficulty breathing or SOB. PAST MEDICAL HISTORY: PAST MEDICAL HISTORY Diagnosis Date Adenocarcinoma of left lung (HCC) COPD (chronic obstructive pulmonary disease) (HCC) IFG (impaired fasting glucose) Myalgia and myositis, unspecified 01/23/2007 Obesity, unspecified 01/23/2007 Palpitations 01/23/2007 Shortness of breath 01/23/2007 Unspecified hypothyroidism 01/23/2007 Unspecified sleep apnea 01/23/2007 PAST SURGICAL HISTORY: PAST SURGICAL HISTORY Procedure Laterality Date CHOLECYSTECTOMY Cholecystectomy PAST SURGICAL HISTORY OF repair of fractured jaw TOTAL ABDOMINAL HYSTERECT W/WO RMVL TUBE OVARY Hysterectomy, BRIANA FAMILY HISTORY: FAMILY HISTORY Problem Relation Age of Onset Diabetes Mother living at age 87. congestive failure, COPD Heart Father in his 70's, several MD's other (pancreatic cancer [Other]) Brother at age 58 Colon Cancer Son at age 20 SOCIAL HISTORY: Social History Tobacco Use Smoking status: Former Packs/day: 3.00 Years: 30.00 Additional pack years: 0.00 Total pack years: 90.00 Types: Cigarettes Quit date: 1994 Years since quittin.7 Smokeless tobacco: Never Tobacco comments: quit 1994 Substance Use Topics Alcohol use: No SOCIAL HISTORY OF IVDU: No SOCIAL HISTORY OF Smoking: Yes SOCIAL HISTORY OF Alcohol Dependency: No MEDICATIONS: Prior to Admission Medications: blood sugar diagnostic (OLSETUCH ULTRA BLUE TEST STRIP [facility])USE TO TEST BLOOD SUGAR DAILY DX E11.9Disp: Rfl: olopatadine (PATANOL) 0.1 % ophthalmic solutionINSTILL 1 DROP INTO BOTH EYES TWICE DAILY NEEDED AT 6-8 HOUR INTERVALS.Disp: Rfl: levothyroxine (SYNTHROID) 50 mcg tabletTake 50 mcg by mouth. Two tablet at breakfast, pt only takes synthroid not levothyroxineDisp: Rfl: escitalopram oxalate (LEXAPRO) 20 mg tabletTake 20 mg by mouth once daily.Disp: Rfl: lorazepam (ATIVAN) 1 mg ORAL TabTake 1 mg by mouth three times daily as needed.Disp: Rfl: [address] (PROTONIX) 20 mg tabletTake 1 tablet by mouth once daily.Disp: 30 tabletRfl: 2 EPINEPHrine (EPIPEN) 0.3 mg/0.3 mL auto-injectoras neededDisp: 1 EachRfl: 1 (Patient not taking: Reported on 07/01/2023) No current facility-administered medications for this visit. Facility-Administered Medications Ordered in Other Visits Medication Dose Route Frequency lactated ringers iv infusion 125 mL/hr INTRAVENOUS CONTINUOUS ALLERGIES: ALLERGIES Allergen Reactions Prochlorperazine Anaphylaxis Compazine Acetaminophen Rash Other reaction(s): Rash Albuterol Other: See Comments heart racing. BP flucuating All Antibiotics [Ot* Other: See Comments Especially Bactrim and PCN All Pain Meds [Othe* Aspirin Shortness of Breath Other reaction(s): Shortness of breath Betadine [Povidone-* Cephalexin Unknown Other reaction(s): U (more content not included)...[facility] 07-01-2023 Instructions* Patient Instructions* Xochilt Klein APRN.[facility] - 07/01/2023 7:36 AM EDT Pre-Admission Patient Instruction You are scheduled for surgery (inpatient) located on the 2nd Floor on: 07/04/23 (your surgery dateis subject to change should there be emergencies prior to your scheduled OR time). Come in the Front Doors / Main Entrance of the hospital. No need to stop at front entrance registration. Please check in to the [facility] (2nd Floor) at: 6 AM Nothing by mouth after midnight: Do not eat or drink anything, including water and coffee, after 12AM on the morning of your surgery. This is important because if you do, your surgery may have to becancelled. Eat a light supper the evening before surgery or follow specific doctor's instructions. Oral hygiene and a shower or bath is required the evening before or the morning of surgery. Use theprescribed Hibiclens body wash supplied to you along with the instruction. Do not chew gum/mints, or use oral spray the morning of surgery. Notify your doctor if you develop a cold, sore throat, fever or other changes in your physical condition. No alcohol 24 hours before or after surgery and refrain from smoking the morning of surgery and immediately following surgery. Leave valuables such as rings, watches and money at home. Remove all make-up and nail dominican beforeadmission. We need to check your circulation. Remove jewelry from all piercings, tongue included, as no metal can go into surgery. Wear loose, comfortable clothing that will accommodate bandages. You will be asked to remove glasses or contacts, and/or your denture prior to surgery. Please bringa case. Your belongings will be kept in an assigned locker until we know your new room after procedure. Your length of stay will be determined by your surgeon/surgery team, the anesthesiologist as well as your post of progress. On the morning of surgery, your point of contact will be instructed on communication regarding surgery updates. Please bring a list of any medication you are taking including dose and the condition for which youare being treated. Medications to stop in preparing surgery: none Infection control and prevention: For body- Hibiclens body wash the night before and morning of surgery. If you are positive of MRSA,you would need shower daily with the Hibiclens body solution for 5 days total (you can get additional amount from any local drug store). Nutritional support/Ensure Drinks Instruction (Please continue eating your usual heart healthy diet): 2 protein shakes daily for 5 days before surgery 2 presurgical clear drinks the night before surgery 1 presurgical clear drink 2 hrs before surgery Medications to take with small amount of fluid in the morning of surgery: None PLEASE COMPLETE THE SHOWER, MOUTH WASH, NASAL OINTMENT, FINISH YOUR DRINK AND PRE-OP MEDICATIONS NO LATER THAN 5:30 AM, THANKS. Please call office at [phone] or Carlypso message me if you have additional questions, Thanks. Xochilt Klein APRN.CNP 07/01/23 documented in this encounterOhio State Harding Hospital09-19-2023 NoteHNO ID: [id number] Author: Dominique Saldaña RDMS Service: ? Author Type: Auto Finance Sales Rep Type: Progress Notes Filed: 06/28/2023 11:58 AM Note Text: Radiology Service Progress Note PATIENT NAME: Jessica Ash DATE OF SERVICE: June 28, 2023 TIME: 11:58 AM PATIENT IDENTITY VERIFICATION COMPLETED USING TWO (2) IDENTIFIERS: Name and Date of confirmed by patient verbally. FALL SCREENING: Has the patient had 2 falls in the last year or 1 fall with injury or currently using an Ambulatory Assistive Device (Walker, Cane, Wheelchair, Crutches, etc.)? No PATIENT GENDER DATA: Female. status: : No status: NO. PATIENT RELEVANT IMPLANT DATA REVIEWED: Not Applicable RADIOLOGY DEPARTMENT: Ultrasound PERIPHERAL IV DATA: Not applicable SIGNED BY: Dominique Saldaña RDMS June 28, 2023 11:58 [facility]09-19-2023 History of Present illness Narrative* Dominique Saldaña RDMS - 06/28/2023 11:30 AM EDT Radiology Service Progress Note PATIENT NAME: Jessica Ash DATE OF SERVICE: June 28, 2023 TIME: 11:58 AM PATIENT IDENTITY VERIFICATION COMPLETED USING TWO (2) IDENTIFIERS: Name and Date of confirmedby patient verbally. FALL SCREENING: Has the patient had 2 falls in the last year or 1 fall with injury or currently using an Ambulatory Assistive Device (Walker, Cane, Wheelchair, Crutches, etc.)? No PATIENT GENDER DATA: Female. status: : No status: NO. PATIENT RELEVANT IMPLANT DATA REVIEWED: Not Applicable RADIOLOGY DEPARTMENT: Ultrasound PERIPHERAL IV DATA: Not applicable SIGNED BY: Dominique Saldaña RDMS June 28, 2023 11:58 AM documented in this encounterOhio State Harding Hospital09-19-2023 Miscellaneous Notes* Telephone Encounter - [facility] Mendes APRN.CNP - 06/28/2023 9:59 AM EDT Please see phone conversations from 06/28 for complete documentation. Pt declines Tuesday PAT visit, declined offer to reschedule to . She will accept a PAT visit for Tuesday am. Orders placed for pre op bloodwork. Pt to obtain at [facility]. [facility] Mendes APRN.CNP documented in this encounterOhio State Harding Hospital09-18-2023 Miscellaneous Notes* Telephone Encounter - Xochilt Klein APRN.CNP - 06/27/2023 2:56 PM EDT Returned pt's phone call regarding recent testing that was completed. Unable to given CT chest results d/t them still in process. LM regarding Stress test results and that it is negative for ischemia. No further workup needed there. Xochilt Klein APRN.CNP * Telephone Encounter - Theo Marsh LPN - 06/27/2023 2:02 PM EDT Patient calling in and left message that she has questions regarding her CAT scan done (and results) on Tuesday and her Nuclear Stress Test that was done today. Theo Marsh LPN June 27, 2023 2:03 PM documented in this encounterOhio State Harding Hospital09-18-2023 Miscellaneous Notes* Telephone Encounter - Isabel Adan - 06/27/2023 1:55 PM EDT Spoke with patient and got them schedule for an EGD W/ DIL on 07/01/23 @ 1130 with the arrival time of 1030 and w/Dr. BRADSHAW. The patient was given prep instruction at their office visit. Isabel Adan June 27, 2023 1:55 PM documented in this encounterOhio State Harding Hospital09-18-2023 NoteHNO ID: [id number] Author: Dae Bradshaw MD Service: ? Author Type: Physician Type: Progress Notes Filed: 06/27/2023 1:34 PM Note Text: HPI: Jessica Ash is a 78 year old female who presents for Difficulty Swallowing and New Patient. Pt is here bc she is scheduled for a pulm lobectomy w Dr. Riley and had a recent PET scan that showed activity in the esophagus. Has acid reflux but is not on Rx, has reflux w beef and [ork allison and its about daily. Has globus sensation and some dysphagia to solids in upper chest. Has occas RUQ pain after po at times after po underneath her R breast. Has occas alt b habits but has nl stool pattern 4-5 ds of the wk. No blood, wt loss, n/v. Nl LFTs in April. Has mult adverse effects w anesthesia, some narcotis. Dr. Mendoza's note reviewed. Current Outpatient Medications Medication Sig blood sugar diagnostic (ONETOUCH ULTRA BLUE TEST STRIP [facility]) USE TO TEST BLOOD SUGAR DAILY DX E11.9 olopatadine (PATANOL) 0.1 % ophthalmic solution INSTILL 1 DROP INTO BOTH EYES TWICE DAILY NEEDED AT 6-8 HOUR INTERVALS. levothyroxine (SYNTHROID) 50 mcg tablet Take 50 mcg by mouth. Two tablet at breakfast escitalopram oxalate (LEXAPRO) 20 mg tablet Take 20 mg by mouth once daily. EPINEPHrine (EPIPEN) 0.3 mg/0.3 mL auto-injector as needed lorazepam (ATIVAN) 1 mg ORAL Tab Take 1 mg by mouth three times daily as needed. No current facility-administered medications for this visit. PAST MEDICAL HISTORY Diagnosis Date COPD (chronic obstructive pulmonary disease) (HCC) IFG (impaired fasting glucose) Myalgia and myositis, unspecified 01/23/2007 Obesity, unspecified 01/23/2007 Palpitations 01/23/2007 Shortness of breath 01/23/2007 Unspecified hypothyroidism 01/23/2007 Unspecified sleep apnea 01/23/2007 PAST SURGICAL HISTORY Procedure Laterality Date CHOLECYSTECTOMY Cholecystectomy PAST SURGICAL HISTORY OF repair of fractured jaw TOTAL ABDOMINAL HYSTERECT W/WO RMVL TUBE OVARY Hysterectomy, BRIANA FAMILY HISTORY Problem Relation Age of Onset Diabetes Mother living at age 87. congestive failure, COPD Heart Father in his 70's, several MD's other (pancreatic cancer [Other]) Brother at age 58 Colon Cancer Son at age 20 Social History Tobacco Use Smoking status: Former Packs/day: 3.00 Years: 30.00 Additional pack years: 0.00 Total pack years: 90.00 Types: Cigarettes Quit date: 1994 Years since quittin.7 Smokeless tobacco: Never Tobacco comments: quit 1994 Substance Use Topics Alcohol use: No ALLERGIES Allergen Reactions Prochlorperazine Anaphylaxis Acetaminophen Rash Other reaction(s): Rash Albuterol Other: See Comments heart racing. BP flucuating Alcohol All Antibiotics [Ot* All Pain Meds [Othe* Aspirin Shortness of Breath Other reaction(s): Shortness of breath Betadine [Povidone-* Cephalexin Unknown Other reaction(s): Unknown Codeine Unknown Other reaction(s): Unknown Compazine [Prochlor* Anaphylaxis Ct Scan Dye [Other] Anaphylaxis Diphenhydramine Hives Other reaction(s): Hives Doxycycline Unknown Other reaction(s): Unknown Egg Unknown Erythromycin Base Unknown Other reaction(s): Unknown Hydromorphone Unknown Ibuprofen Unknown Other reaction(s): Unknown Ketorolac Shortness of Breath Latex Lidocaine Swelling, Itching Other reaction(s): Unknown Meperidine Unknown Other reaction(s): Unknown Milk Morphine Unknown Naproxen Unknown Nsaids (Non-Steroid* Anaphylaxis Ondansetron Unknown Penicillins Unknown Other reaction(s): Unknown Soap Sulfa (Sulfonamide * Unknown Tramadol Shortness of Breath Vegetables [Other] Wheat Starch REVIEW OF SYSTEMS GENERAL: No weight loss, malaise or fevers. HEENT: Negative for frequent or significant headaches, No changes in hearing or vision, no nose bleeds or other nasal problems. NECK: Negative for lumps, goiter, pain and significant neck swelling. RESPIRATORY: Negative for cough, hemoptysis, wheezing or shortness of breath CARDIOVASCULAR: Negative for chest pain, leg swelling or palpitations GI: See HPI : No history of dysuria, frequency or incontinence MUSCULOSKELETAL: Negative for joint pain or swelling, back pain or muscle pain. SKIN: Negative for lesions, rash, and itching PSYCH: Negative for sleep disturbance, mood disorder and recent psychosocial stressors NEURO: No history of headaches, syncope, paralysis, seizures or tremors PHYSICAL EXAMINATION: Ht 5' 5 (1.65m) Wt 191 lb (86.6kg) BMI 31.78 kg/(m2). GENERAL APPEARANCE: Well appearing, alert, in no acute distress, well-hydrated, well nourished.. SKIN: Skin color, texture, turgor normal, no suspicious rashes or lesions. EYES: Anicteric sclera. Pupils are equally round and reactive to light. Extraocular movements are intact. . NECK: Supple, no adenopathy; thyroid symmetric, normal size, no bruits. LUNGS: Lungs clear t (more content not included)...[facility] 06-27-2023 History of Present illness Narrative* Erlin Shaw RT(R) - 06/27/2023 7:30 AM EDT RADIOLOGY SERVICE PROGRESS NOTE SERVICE DATE: 06/27/2023 SERVICE TIME: 10:01 AM PATIENT IDENTITY VERIFICATION COMPLETED USING TWO (2) STANDARD IDENTIFIERS: Name and Date of confirmed by patient verbally FALL SCREENING: Has the patient had 2 falls in the last year or 1 fall with injury or currently using an Ambulatory Assistive Device (Walker, Cane, Wheelchair, Crutches, etc.)? No PATIENT GENDER DATA: .female : No ALLERGIES: Reviewed and unchanged MEDICATIONS REVIEWED: No PATIENT RELEVANT IMPLANT DATA REVIEWED: Not Applicable CREATININE: Creatinine Date Value Ref Range Status 01/23/2007 0.9 0.7 - 1.4 mg/dL Final P.O.C.T. RESULTS: N/A June 27, [address] PERFORMED: No IV SITE: Ambulatory: A peripheral IV was started in the Left forearm with a Angio cath: 22 gauge. POST EXAM PIV STATUS: Discontinued PROCEDURE TYPE: NM Stress: 13.4 mCi [id number] was administered IV for Rest Imaging at 745 by ty. 34.6 mCi [id number] was administered IV for Stress Imaging at 945 by ty. ADMINISTRATION TIME: 745 PATIENT DISCHARGED TO: Ambulatory patient, left [place] department area. A Diagnostic radioactive procedure has taken place, with no further precautions necessary other than routine body substance precautions. More information regarding radiation safety can be found usingthis link: [email or web address] SIGNATURE: RADHA Manriquez) PATIENT NAME: Jessica Ash DATE: June 27, 2023 TIME: 10:01 AM PAGER/CONTACT #: documented in this encounterOhio State Harding Hospital09-18-2023 NoteHNO ID: [id number] Author: Erlin Shaw RT(R) Service: Nuclear Medicine Author Type: Technologist Type: Progress Notes Filed: 06/27/2023 10:02 AM Note Text: RADIOLOGY SERVICE PROGRESS NOTE SERVICE DATE: 06/27/2023 SERVICE TIME: 10:01 AM PATIENT IDENTITY VERIFICATION COMPLETED USING TWO (2) STANDARD IDENTIFIERS: Name and Date of confirmed by patient verbally FALL SCREENING: Has the patient had 2 falls in the last year or 1 fall with injury or currently using an Ambulatory Assistive Device (Walker, Cane, Wheelchair, Crutches, etc.)? No PATIENT GENDER DATA: .female : No ALLERGIES: Reviewed and unchanged MEDICATIONS REVIEWED: No PATIENT RELEVANT IMPLANT DATA REVIEWED: Not Applicable CREATININE: Creatinine Date Value Ref Range Status 01/23/2007 0.9 0.7 - 1.4 mg/dL Final P.O.C.T. RESULTS: N/A June 27, [address] PERFORMED: No IV SITE: Ambulatory: A peripheral IV was started in the Left forearm with a Angio cath: 22 gauge. POST EXAM PIV STATUS: Discontinued PROCEDURE TYPE: NM Stress: 13.4 mCi [id number] was administered IV for Rest Imaging at 745 by ty. 34.6 mCi Pi70h-Gcbosow was administered IV for Stress Imaging at 945 by ty. ADMINISTRATION TIME: 745 PATIENT DISCHARGED TO: Ambulatory patient, left [place] department area. A Diagnostic radioactive procedure has taken place, with no further precautions necessary other than routine body substance precautions. More information regarding radiation safety can be found using this link: [email or web address] SIGNATURE: RT Mitra(R) PATIENT NAME: Jessica Ash DATE: June 27, 2023 TIME: 10:01 AM PAGER/CONTACT #:[facility]09-18-2023 Nurse Note * Cleopatra Walker RN - 06/27/2023 7:30 AM EDT # 22 Jelco LAC. Lexiscan nuclear stress test explained to patient and questions answered. IV D/C'd post test. documented in this encounterOhio State Harding Hospital09-15-2023 NoteHNO ID: [id number] Author: Kezia Gaona RT(R) Service: ? Author Type: Auto Finance Sales Rep Type: Progress Notes Filed: 06/24/2023 3:55 PM Note Text: Radiology Service Progress Note PATIENT NAME: Jessica Ash DATE OF SERVICE: June 24, 2023 TIME: 3:55 PM PATIENT IDENTITY VERIFICATION COMPLETED USING TWO (2) IDENTIFIERS: Name and Date of confirmed by patient verbally. FALL SCREENING: Has the patient had 2 falls in the last year or 1 fall with injury or currently using an Ambulatory Assistive Device (Walker, Cane, Wheelchair, Crutches, etc.)? No PATIENT GENDER DATA: Female. status: : No status: NO. PATIENT RELEVANT IMPLANT DATA REVIEWED: Yes RADIOLOGY DEPARTMENT: CT; Exam(s) Completed: Chest PERIPHERAL IV DATA: Not applicable SIGNED BY: RADHA Rao) June 24, 2023 3:55 [facility]09-15-2023 History of Present illness Narrative* Kezia Gaona RT(R) - 06/24/2023 1:20 PM EDT Radiology Service Progress Note PATIENT NAME: Jessica Ash DATE OF SERVICE: June 24, 2023 TIME: 3:55 PM PATIENT IDENTITY VERIFICATION COMPLETED USING TWO (2) IDENTIFIERS: Name and Date of confirmedby patient verbally. FALL SCREENING: Has the patient had 2 falls in the last year or 1 fall with injury or currently using an Ambulatory Assistive Device (Walker, Cane, Wheelchair, Crutches, etc.)? No PATIENT GENDER DATA: Female. status: : No status: NO. PATIENT RELEVANT IMPLANT DATA REVIEWED: Yes RADIOLOGY DEPARTMENT: CT; Exam(s) Completed: Chest PERIPHERAL IV DATA: Not applicable SIGNED BY: RT Maira(R) June 24, 2023 3:55 PM documented in this encounterOhio State Harding Hospital09-15-2023 Miscellaneous Notes* Telephone Encounter - Theo Marsh LPN - 06/24/2023 8:51 AM EDT Images from the original note were not included. Patient states she was just returning April's call. Theo Marsh LPN June 24, 2023 8:53 AM Xochilt Klein APRN.DRIVER RECRUITER You 17 hours ago (3:20 PM) Can you please call her back and gather more information on what she needs. Thank you * Telephone Encounter - Theo Marsh LPN - 06/23/2023 1:56 PM EDT Patient calling in and left message that she would like to talk to April Velasquez NP. Patient asking for a return call. Theo Marsh LPN June 23, 2023 1:58 PM documented in this encounterOhio State Harding Hospital09-13-2023 Miscellaneous Notes* Telephone Encounter - April Velasquez APRN.CNP - 06/22/2023 1:49 PM EDT See my TE from earlier today. Plan is for pt to see GI Dr. Bradshaw so no need to call [facility] back. * Telephone Encounter - April Velasquez APRN.CNP - 06/22/2023 1:49 PM EDT ----- Message from Estelle Chatman sent at 06/22/2023 1:42 PM EDT ----- [employer] #[phone], from [facility], asking for a return call. documented in this encounterOhio State Harding Hospital09-13-2023 Miscellaneous Notes* Addendum Note - April Velasquez APRN.CNP - 06/22/2023 11:53 AM EDTAddended by: APRIL VELASQUEZ on: 06/22/2023 11:53 AM Modules accepted: Orders * Telephone Encounter - April Velasquez APRN.CNP - 06/22/2023 11:34 AM EDT Reviewed TE from [employer] yesterday stating, TuesdayJune 17, Dr. Ramirez in [facility] in [place] [facility] was going to do an upper endoscopy at [facility]. Due to allergies, anesthesiologist cancelled the procedure, recommended that that the procedure be done at a hospital with ICU capability. Pt states she will not continue to follow with Dr. Ramirez. She has followed with Dr. Murphy in the past, and she was supposed to have a scope three months ago, but this was delayed 2/2 the CA. She has the heart stress test next week. Case reviewed with Dr. Riley. Records reviewed. He had prefefrred endoscopy to be done prior to OR due to There is hypermetabolsim associated with the distal esophagus with SUV 6.8 (felt to be inflammatory). On PET scan 04/15/23. Last dedicated CT chest was from 11/[address] non contrast chest and upper endoscopy prior to any thoracic surgery. Will explore possibility of performing endoscopy at time or thoracic surgery. GI to discuss with anesthesia regarding potential plan. Returned call to patient this morning who states she heard from Dr. Murphy's office who told her ?she doesn't need endoscopy vs they won't do endoscopy but rather they recommend she get on antianxiety medication from her PCP. Patient states Dr. Murphy's office told her CT surgery will do the endoscopy prior to lung surgery. Let her know plans for possibility of endoscopy at time of thoracic surgery of which GI and anesthesia to coordinate potential plan. Though appears Dr. Miller is with [facility], and Dr. Murphy is with [facility] so patient would need GI at [facility] if coordination to happen during surgery by Dr. Riley. Patient scheduled for stress test next w [place] 06/27/23. Called Dr. Murphy's office and left VM at [phone] for clarification regarding their plan/recommendation for patient. Will review this with Dr. Riley and update if any changes. Addendum 06/22/23 at 11:48 AM Discussed the above with Dr. Riley who states he discussed patient's case with Dr. Bradshaw who is willing to try getting patient in for endoscopy. Called patient and notified her of this. Placing order for referral. * Telephone Encounter - Theo Marsh LPN - 06/22/2023 10:44 AM EDT Patient calling in and left message that she needs to speak with Dr. Riley's Nurse. Theo Marsh LPN June 22, 2023 10:45 AM documented in this encounterOhio [facility]09-13-2023 Miscellaneous Notes* Telephone Encounter - Jose Cruz Martinez - 06/22/2023 9:[address] Henson ([employer]) 06/14/23 office encounter. Report scanned into Epic documented in this encounterOhio [facility]09-13-2023 Miscellaneous Notes* Telephone Encounter - Jose Cruz Martinez - 06/22/2023 9:32 AM EDT Left detailed message regarding future appt CT Chest wo contrast 06/24/23 1:20pm [facility] documented in this encounterOhio [facility]09-12-2023 Miscellaneous Notes* Telephone Encounter - Surinder Mendoza MD - 06/21/2023 9:51 AM EDT Reviewed medication allergies with patient as well as previous experience with anesthesia medications. Discussed following recommendations with patient, patient expressed understanding and agreement with plan. -Avoid propofol given egg allergy: Plan to induce and maintain general anesthesia with other agents(patient has tolerated volatile anesthetics, etomidate, midazolam, fentanyl & paralytics previously) -Multiple narcotics allergies: Patient has tolerated fentanyl previously, plan to use high dose fentanyl and multimodal analgesia plan for intra-op and PACU pain control -Avoid local anesthetics -Avoid diphenhydramine: plan to use alternative agents for PONV prophylaxis -Defer antibiotic selection to surgical team documented in this encounterOhio [facility]09-06-2023 Miscellaneous Notes* Telephone Encounter - Jose Cruz Martinez - 06/15/2023 11:43 AM EDT Received reports on 10/13/22 PFT, 10/13/22 CT Chest, 11/17/22 CT Chest, & 07/28/21 TTE from [facility]. Scanned into Epic documented in this encounterOhio State [facility] Hospital08-31-2023 Miscellaneous Notes* Telephone Encounter - Jose Cruz Martinez - 06/09/2023 4:13 PM EDT 07/13/23 NM Stress Test moved up to 06/27/23 Check in [facility] at 7:15am. Pt agreeable to this appt Prep: NPO 4 hours prior, water ok. No caffeine or decaffeinated products 12 hours prior to test. Allow 2-3 hours for test to be completed. EGD order due to abnormal 04/15/23 PET/CT showing hypermetabolism distal esophagus. I've called [facility] GI office of Dr. Bradshaw [phone]. Pt would need office visit before EGD can be performed. First available appt is late July 2023. [facility] [phone] Also scheduling for late July 2023. [facility] [place] [phone] not taking new pts at this time. Dr. Miller office [phone] requested records to be faxed, they will try to get pt in [place]. Records faxed to [phone]. Left upper lobectomy with Dr. Riley tentatively schedule for 07/04/23. Pt has been notified of this information. I documented in this encounterOhio State [facility]ing Hospital08-31-2023 Miscellaneous Notes* Telephone Encounter - Xochilt Klein APRN.CNP - 06/09/2023 2:17 PM EDT Pt is calling to find out if we were able to have her stress test date moved up. She would also like to schedule surgery so that she can start planning for care for her disabled granddaughter. Will reach out to ticket scheduler to see what changes we can make. Xochilt Klein APRN.TONIA * Telephone Encounter - Xochilt Klein APRN.CNP - 06/09/2023 2:04 PM EDT Attempted to call patient back, no answer, LM for patient to call us back. Xochilt Klein APRN.TONIA * Telephone Encounter - Theo Marsh LPN - 06/09/2023 1:15 PM EDT Patient calling in and left message that she would like to speak with Dr. Riley's COTTON EXPERT regarding surgery. Theo Marsh LPN June 09, 2023 1:16 PM documented in this encounterOhio State Harding Hospital08-28-2023 Miscellaneous Notes* Telephone Encounter - Xochilt Klein APRN.CNP - 06/06/2023 3:59 PM EDT Pt called to notify us that she is unable to get in until Jul for the stress test. Notified her that I will reach out to our ticket scheduler to see what we can do to expedite the stress test. She also wanted to know if Dr. Riley was going to speak with her sql bi developer prior to the procedure. I notified her that I reached out to the office to get a list of allergies and office notes, but have not received any information back. I will let Dr. Riley know patients request. Xochilt Klein APRN.TONIA * Telephone Encounter - Dianne Vela LPN - 06/06/2023 3:39 PM EDT Jessica Aquino called & left voice message asking to speak with Dr. Riley's COTTON EXPERT. She said she has a few questions & was told @ last office visit to call & COTTON EXPERT would talk with her. She can be reached @ [phone]. Dianne Vela LPN documented in this encounterOhio State [facility]ing Hospital08-24-2023 Miscellaneous Notes* Telephone Encounter - Xochilt Klein APRN.CNP - 06/02/2023 1:46 PM EDT Reached out to Dr. Love for information regarding patient's allergies and what options we have for sedation/pain medications. Spoke with nurse, she will fax over the information after she speaks with Dr. Love. [address] [facility], documented in this encounterOhio State Harding Hospital08-23-2023 NoteHNO ID: [id number] Author: Shade Riley MD Service: ? Author Type: Physician Type: Progress Notes Filed: 06/01/2023 3:37 PM Note Text: CARDIOTHORACIC SURGERY CONSULT / HANDP SERVICE DATE: 06/01/2023 SERVICE TIME: 3:03 PM Subjective PRIMARY SERVICE: Cardiothoracic Surgery CHIEF COMPLAINT: left upper lobe nonsmall cell lung cancer HPI: This is a 78 year old woman referred for evaluation of a left upper lobe nonsmall cell lung cancer and for consideration for resection. She complains of long standing exertional dyspnea. A left upper lobe lesion was identified on CXR. Subsequent CT scans of the chest performed in October and November showing stable 2.3 cm area of consolidation within the left upper lobe with stable central nodular density; no adenopathy; no effusion. PET scanning 04/15 was positive at this site for hypermetabolism with SUV 12.9. A new second hypermetabolic nodule is identified in the left upper lobe laterally and anteriorly, pleural based, measuring 1.6 x 1.1 cm with SUV 4.1. No hypermetabolic mediastinal lymph nodes. There is hypermetabolsim associated with the distal esophagus with SUV 6.8 (felt to be inflammatory).. CT guided biopsy is positive for nonsmall cell cancer, favoring adenocarcinoma. Bronchoscopic EBUS evaluation of the mediastinum is negative at stations 11R, 4R, 4L, 7, 11L. By report, her recent PFTs are good with FEV1 of 70% and normal DLCO; I do not have documentation at hand. She denies cough, sputum, hemoptysis, weight loss, new pain. She endorses some episodes of chest pressure with exertion. She denies any h/o CAD, CHF, previous heart cath, or stress test. She is a remote smoker. She has COPD. She has ANA. She does not tolerate CPAP treatment. She has multiple drug allergies and/or intolerances, which has made previous procedural sedation and pain control difficult to navigate. PAST MEDICAL HISTORY Diagnosis Date COPD (chronic obstructive pulmonary disease) (HCC) IFG (impaired fasting glucose) Myalgia and myositis, unspecified 01/23/2007 Obesity, unspecified 01/23/2007 Palpitations 01/23/2007 Shortness of breath 01/23/2007 Unspecified hypothyroidism 01/23/2007 Unspecified sleep apnea 01/23/2007 PAST SURGICAL HISTORY Procedure Laterality Date CHOLECYSTECTOMY Cholecystectomy PAST SURGICAL HISTORY OF repair of fractured jaw TOTAL ABDOMINAL HYSTERECT W/WO RMVL TUBE OVARY Hysterectomy, BRIANA FAMILY HISTORY Problem Relation Age of Onset Diabetes Mother living at age 87. congestive failure, COPD Heart Father in his 70's, several MD's other (pancreatic cancer [Other]) Brother at age 58 Colon Cancer Son at age 20 Social History Tobacco Use Smoking status: Former Packs/day: 3.00 Years: 30.00 Additional pack years: 0.00 Total pack years: 90.00 Types: Cigarettes Quit date: 1994 Years since quittin.6 Smokeless tobacco: Never Tobacco comments: quit 1994 Substance Use Topics Alcohol use: No (Not in a hospital admission) blood sugar diagnostic (ONETOUCH ULTRA BLUE TEST STRIP [facility]) USE TO TEST BLOOD SUGAR DAILY DX E11.9 olopatadine (PATANOL) 0.1 % ophthalmic solution INSTILL 1 DROP INTO BOTH EYES TWICE DAILY NEEDED AT 6-8 HOUR INTERVALS. levothyroxine (SYNTHROID) 50 mcg tablet Take 50 mcg by mouth. Two tablet at breakfast escitalopram oxalate (LEXAPRO) 20 mg tablet Take 20 mg by mouth once daily. EPINEPHrine (EPIPEN) 0.3 mg/0.3 mL auto-injector as needed lorazepam (ATIVAN) 1 mg ORAL Tab Take 1 mg by mouth three times daily as needed. ALLERGIES Allergen Reactions Prochlorperazine Anaphylaxis Acetaminophen Rash Other reaction(s): Rash Albuterol Other: See Comments heart racing. BP flucuating Alcohol All Antibiotics [Ot* All Pain Meds [Othe* Aspirin Shortness of Breath Other reaction(s): Shortness of breath Betadine [Povidone-* Cephalexin Unknown Other reaction(s): Unknown Codeine Unknown Other reaction(s): Unknown Compazine [Prochlor* Anaphylaxis Ct Scan Dye [Other] Anaphylaxis Diphenhydramine Hives Other reaction(s): Hives Doxycycline Unknown Other reaction(s): Unknown Egg Unknown Erythromycin Base Unknown Other reaction(s): Unknown Hydromorphone Unknown Ibuprofen Unknown Other reaction(s): Unknown Ketorolac Shortness of Breath Latex Lidocaine Unknown Other reaction(s): Unknown Meperidine Unknown Other reaction(s): Unknown Milk Morphine Unknown Naproxen Unknown Nsaids (Non-Steroid* Anaphylaxis Ondansetron Unknown Penicillins Unknown Other reaction(s): Unknown Soap Sulfa (Sulfonamide * Unknown Tramadol Shortness of Breath Vegetables [Other] Wheat Starch REVIEW OF SYSTEMS: as above Objective PHYSICAL EXAM: BP 112/64 (BP Site: Left Arm, BP Position: Sitting) Pulse (!) 56 Resp 16 Ht 5' 5 (1.651 m) Wt 193 lb 3.2 oz (87.6 kg) SpO2 96% BMI 32.15 kg/m? Body surface area is (more content not included)...[facility] 05-13-2023 NotePrep for Procedure Order Request: 05/13/23 Surgeon: Dr. Thomason Surgery/Procedure: Robotic left upper lobectomy Plan Admit: Yes PAT Appointment: 06/08/23 at 2:30 PM Date if yes: Date of Surgery/Procedure: 06/15/23 at 12:00 PM Medication needed held: [x] None [] Other: Medication needed prescribed: [x] None [] Nasal ointment and mouth rinse [] Other: [facility]07-27-2023 History of Present illness Narrative* José Miguel Reis MD - 05/05/2023 9:45 AM EDT Patient was seen today via Telehealth by agreement and consent. I used the following Telehealth technology: Audio capability only. Total length of call 22 minutes. The patient was offered and advisedvideo for a more comprehensive evaluation, but the patient declined or was unable to use video. Patient location: Home. This patient encounter is appropriate and reasonable under the circumstances given the patient's particular presentation at this time. The patient has been advised of the potential risks and limitations of this mode of treatment (including but not limited to the absence of in-person examination) and has agreed to be treated in a remote fashion in spite of them. Any and all of the patient's/patient's family's questions on this issue have been answered and I have made no promises or guarantees to the patient. The patient has also been advised to contact this office for worsening conditions or problems, and seek emergency medical treatment and/or call 911 if the patient deems either necessary. The patient stated that they are currently in the [facility]. If the patientis a minor, permission has been obtained by the parent or guardian for the patient to receive medical care at this visit. Chief Complaint: Chief Complaint Patient presents with Lung Cancer History of Present Illness: HPI Follow up after bronchoscopy/EBUS to evaluate mild mediastinal adenopathy to stage prior to planned resection of ROSETTA for adenocarcinoma (previously biopsied). She has multiple drug allergies which limited anesthesia. She had laryngospasm due to lack of lidocaine and required intubation during the bronchoscopy. She otherwise did well despite receiving numerous medications from classes that she has reported allergies to. Sampling of mediastinal and bilateral hilar lymph nodes by EBUS is negative for malignancy with good lymph node samples. She also reports severeOSA and was intolerant of CPAP. She is interested in exploring treatment options again. Past Medical History: Past Medical History: Diagnosis Date Anxiety Bradycardia COPD (chronic obstructive pulmonary disease) (HCC) Depression Diabetes (HCC) Former smoker Hyperthyroidism Mitral valve prolapse MVP (mitral valve prolapse) Obesity Sleep apnea Social History: Social History Socioeconomic History Marital status: Tobacco Use Smoking status: Former Packs/day: 2.00 Years: 31.00 Pack years: 62.00 Types: Cigarettes Start date: 1963 Quit date: 10/10/1994 Years since quittin.5 Smokeless tobacco: Never Substance and Sexual Activity Alcohol use: Never Drug use: Never Social Determinants of Health Intimate Partner Violence: Not At Risk (04/28/2023) Humiliation, Afraid, Rape, and Kick questionnaire Fear of Current or Ex-Partner: No Emotionally Abused: No Physically Abused: No Sexually Abused: No Family History: Family History Problem Relation Name Age of Onset Heart failure Mother Diabetes Mother Cancer Father Heart disease Father ROS: Review of Systems All other systems reviewed and are negative. Medications: Current Outpatient Medications Medication Sig Dispense Refill diphenhydrAMINE HCl (ALLERGY MED PO) Take by mouth. escitalopram (Lexapro) 20 MG tablet Take 20 mg by mouth in the morning. levothyroxine (Synthroid, Levoxyl) 50 MCG tablet Take 50 mcg by mouth daily. LORazepam (Ativan) 1 MG tablet Take 1 tablet by mouth daily. olopatadine (Pataday) 0.1 % ophthalmic solution 1 drop 2 times daily. No current facility-administered medications for this visit. Allergies: Allergies Allergen Reactions Aspirin Shortness of breath Other reaction(s): Shortness of breath Other reaction(s): Shortness of breath Epinephrine Unknown Prochlorperazine Anaphylaxis Cephalexin Other reaction(s): Unknown Other reaction(s): Unknown Other reaction(s): Unknown Cephalosporins Other reaction(s): Unknown Codeine Other reaction(s): Unknown, Unknown Other reaction(s): Unknown Other reaction(s): Unknown Diphenhydramine Hives Other reaction(s): Hives Other reaction(s): Hives Doxycycline Other reaction(s): Unknown Other reaction(s): Unknown Other reaction(s): Unknown Erythromycin Base Other reaction(s): Unknown Other reaction(s): Unknown Other reaction(s): Unknown Ibuprofen Other reaction(s): Unknown Other reaction(s): Unknown Other reaction(s): Unknown Iodinated Contrast Media Other reaction(s): Anaphylaxis Lidocaine Other reaction(s): Unknown Other reaction(s): Unknown Other reaction(s): Unknown Meperidine Other reaction(s): Unknown Other reaction(s): Unknown Other reaction(s): Unknown Morphine Other reaction(s): Unknown Penicillins Other reaction(s): Unknown, Unknown Other reaction(s): Unknown Other reaction(s): Unknown Acetaminophen Rash Other reaction(s): Rash Other reaction(s): Rash Nsaids Rash Physical Exam: BP Temp Pulse Resp SpO2 Physical Exam telephonic visit Assessment and Plan: 1. Malignant neoplasm of upper lobe of left lung (HCC) Appears to have localized disease, although there is a new nodule in the same lobe on her PET. [facility]/surgery with Dr. Thomason. 2. Mediastinal adenopathy Mild adenopathy is negative for malignancy by EBUS and was not PET avid. 3. Multiple drug allergies Complicates anesthesia and pain control post surgery. May need test doses of medications (particularly narcotics), while hospitalized. 4. Laryngospasm Secondary to bronchoscopy. I question if prior drug reactions are related to this as she appears tohave hyper-reactive vocal cords. 5. ANA (obstructive sleep apnea) Will arrange follow up with one of my pulmonary/sleep colleagues. Can likely maintain all pulmonarycare with them as well. Follow-up: 2-3 months with pulmonary/sleep documented in this [facility]07-20-2023 Note* Perioperative Nursing Note - Letha Ceja RN - 04/28/2023 5:23 PM EDT Pt ambulated with RN, denies dizziness. No acute distress noted. All questions answered, dischargedwith RN in wheelchair to vehicle. [id number] Note* Perioperative Nursing Note - Letha Ceja RN - 04/28/2023 5:23 PM EDT Pt ambulated with RN, denies dizziness. No acute distress noted. All questions answered, dischargedwith RN in wheelchair to vehicle. [facility] [id number] Miscellaneous Notes* Perioperative Nursing Note - Letha Ceja RN - 04/28/2023 5:23 PM EDT Pt ambulated with RN, denies dizziness. No acute distress noted. All questions answered, dischargedwith RN in wheelchair to vehicle. * Perioperative Nursing Note - Letha Ceja RN - 04/28/2023 4:20 PM EDT Pt requesting RN speak to Dr. Reis for another dose of ativan. RN educated pt a dose was just given, as per MAR pt has received 0.5mg IV at 1557, pt adamant on RN speaking with Dr. Reis. Dr. Reis paged. 1635- verbal order for 0.5mg ativan IV. See MAR * Perioperative Nursing Note - Oleg Fraser RN - 04/28/2023 4:07 PM EDT Reviewed homegoing instructions with patient and . * Perioperative Nursing Note - Oleg Fraser RN - 04/28/2023 3:30 PM EDT at bedside. Glasses and dentures returned to patient. * Op Note - José Miguel Reis MD - 04/28/2023 2:16 PM [facility] Dye Procedure Date: 04/28/2023 2:16 PM Gender: Female Date of : 1945 Age: 78 Admit Type: Outpatient Note Status: Finalized Attending MD: José Miguel Reis MD, [id number] Procedure: Bronchoscopy Indications: Adenopathy, Known lung cancer of the left upper lobe Findings: An endobronchial ultrasound endoscope was utilized in order to assist with fine needle aspiration in the left and right paratracheal and subcarinal areas, in the right hilum and in the left hilum. Transbronchial needle aspirations were performed in the left and right paratracheal and subcarinal areas, in the right hilum and in the left hilum using a Musiwave Expect 25 gauge needle and sent for routine cytology. The procedure was guided by ultrasound. The sampling device penetrated the full thickness of the bronchial wall in order to reach the sampling site. Five samples were obtained. Left Lung Abnormalities: An area of friable mucosa was found in the left upper lobe. 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 - A transbronchial needle aspiration was performed. Recommendation: - Await cytology results. Medicines: General Anesthesia Procedure: Pre-Anesthesia Assessment: - A History and Physical has been performed. The patient's medications, allergies and sensitivities have been reviewed. - ASA Grade Assessment: II - A patient with mild systemic disease. - The anesthesia plan was to use general anesthesia. After I obtained informed consent, the scope was passed under direct vision. Throughout the procedure, the patient's blood pressure, pulse, and oxygen saturations were monitored continuously. The Bronchoscope was introduced through the mouth, via the endotracheal tube (the patient was intubated for the procedure) and advanced to the tracheobronchial tree of both lungs. The Bronchoscope was introduced through the mouth, via laryngeal mask airway and advanced to the tracheobronchial tree of both lungs. The procedure was unusually difficult due to the patient's respiratory instability (excessive coughing), the patient's respiratory instability and the patient's respiratory instability (hypoxia). Successful completion of the procedure was aided by intubation and assisted ventilation and managing the patient's medical instability. The patient tolerated the procedure. Complications: No immediate complications. Estimated blood loss: Minimal Procedure Code(s): --- Professional --- 82327, Bronchoscopy, rigid or flexible, including fluoroscopic guidance, when performed; with transbronchial needle aspiration biopsy(s), trachea, main stem and/or lobar bronchus(i) 73523, Bronchoscopy, rigid or flexible, including fluoroscopic guidance, when performed; with transendoscopic endobronchial ultrasound (EBUS) during bronchoscopic diagnostic or therapeutic intervention(s) for peripheral lesion(s) (List separately in addition to code for primary procedure[s]) Diagnosis Code(s): --- Professional --- R59.1, Generalized enlarged lymph nodes C34.12, Malignant neoplasm of upper lobe, left bronchus or lung CPT copyright 2021 [employer]. All rights reserved. The codes documented in this report are preliminary and upon food service aide review may be revised to meet current compliance requirements. Attending Participation: I personally performed the entire procedure. José Miguel Reis MD 04/28/2023 3:08:16 PM This report has been signed electronically. Number of Addenda: 0 Note Initiated On: 04/28/2023 2:16 PM documented in this [facility]07-20-2023 NotePatient: Jessica Becerra Dye Procedure Summary Date: 04/28/23 Room / Location: [facility] ENDO 7 / [facility] Gastroenterology Anesthesia Start: 1414 Anesthesia Stop: 1516 Procedure: EBUS WITH XRAY Diagnosis: Non-small cell lung cancer, unspecified laterality (HCC) (Non-small cell lung cancer, unspecified laterality (HCC) [C34.90]) Providers: José Miguel Reis MD Responsible Provider: Naeem Riggins MD Anesthesia Type: general ASA Status: 3 Anesthesia Type: general Vitals Value Taken Time BP 115/65 04/28/23 1516 Temp 36.1 ?C (97 ?F) 04/28/23 1516 Pulse 60 04/28/23 1516 Resp 18 04/28/23 1516 SpO2 99 % 04/28/23 1516 Anesthesia Post Evaluation Patient location during evaluation: PACU Patient participation: complete - patient participated Level of consciousness: awake and alert Pain management: satisfactory to patient Airway patency: patent Dental Injury: no Cardiovascular status: acceptable, blood pressure returned to baseline and hemodynamically stable Respiratory status: acceptable and spontaneous ventilation Hydration status: euvolemic Nausea/Vomiting: controlled No notable events documented. Patient can be discharged once all PACU criteria has been met.[facility]07-20-2023 NotePatient: Jessica Kenia A Dye Procedure Summary Date: 04/28/23 Room / Location: [facility] ENDO 7 / [facility] Gastroenterology Anesthesia Start: 1414 Anesthesia Stop: 1516 Procedure: EBUS WITH XRAY Diagnosis: Non-small cell lung cancer, unspecified laterality (HCC) (Non-small cell lung cancer, unspecified laterality (HCC) [C34.90]) Providers: José Miguel Reis MD Responsible Provider: Naeem Riggins MD Anesthesia Type: general ASA Status: 3 Anesthesia Type: general Vitals Value Taken Time BP 115/65 04/28/23 1516 Temp 36.1 ?C (97 ?F) 04/28/23 1516 Pulse 60 04/28/23 1516 Resp 18 04/28/23 1516 SpO2 99 % 04/28/23 1516 Anesthesia Post Evaluation Patient location during evaluation: PACU Patient participation: complete - patient participated Level of consciousness: awake and alert Pain management: satisfactory to patient Multimodal analgesia pain management approach Airway patency: patent Two or more strategies used to mitigate risk of obstructive sleep apnea Cardiovascular status: acceptable and hemodynamically stable Respiratory status: acceptable Hydration status: acceptable No notable events documented. MIPS #430 PONV Patient received an inhalational anesthetic (4554F) Patient exhibits three or more risk factors for PONV (4556F) Patient did not receive at least 2 prophylactic Rx PONV anti-emtic agents of different classes preop and/or intraop (G9776) Patient refusal No medical reason given (G9777) MIPS # 424 Perioperative Temperature Management Anesthesia time was 60 minutes or longer (4255F) Anesthesai administered was General (inhalational or TIVA) or Neuraxial block (X0424) At least one body temperature greater than 95.8F/35.5C achieved within the 30 mins immediately prior to or the 15 minutes immediately following anesthesia end time (G9771) MIPS #477 Multimodal Pain Management Not emergent case Patient was administered multimodal pain management (two or more drugs and/or interventions excluding systemic opioids) in the periopeartive period occurring at some time between 6 hours prior to anesthesia start time until discharged from PACU (G2148) MIPS #404 Anesthesiology Smoking Abstinence The patient is not a current smoker (e.g. cigarette, cigar, pipe, e-cigarette/vaping/marijuana) If no stop here (XX404) I completed my handoff to the receiving clinician during which we: 1. Identified the patient 2. Identified the responsible provider 3. Reviewed the pertinent medical history 4. Discussed the surgical course 5. Reviewed intra-op anesthesia management and issues during anesthesia 6. Set expectations for post-procedure period 7. Allowed opportunity for questions and acknowledgement of understanding.[facility] [id number] NoteAirway Date/Time: 04/28/2023 2:21 PM Urgency: scheduled Airway not difficult General Information and Staff Patient location during procedure: Procedural Resident/BUSINESS ASSOCIATE: Shade Ward CRNA Performed: BUSINESS ASSOCIATE Performed by: Shade Ward CRNA Authorized by: Shade Ward CRNA Indications and Patient Condition Indications for airway management: anesthesia Sedation level: Asleep Preoxygenated: yes Patient position: sniffing MILS maintained throughout Mask difficulty assessment: 1 - vent by mask Final Airway Details Final airway type: supraglottic airway Successful airway: Igel Size 4 Number of attempts at approach: [address] [place], [place] [id number] Note* Perioperative Nursing Note - Letha Ceja RN - 04/28/2023 4:20 PM EDT Pt requesting RN speak to Dr. Reis for another dose of ativan. RN educated pt a dose was just given, as per MAR pt has received 0.5mg IV at 1557, pt adamant on RN speaking with Dr. Reis. Dr. Reis paged. 1635- verbal order for 0.5mg ativan IV. See MAR [id number] Note* Perioperative Nursing Note - Letha Ceja RN - 04/28/2023 4:20 PM EDT Pt requesting RN speak to Dr. Reis for another dose of ativan. RN educated pt a dose was just given, as per MAR pt has received 0.5mg IV at 1557, pt adamant on RN speaking with Dr. Reis. Dr. Reis paged. 1635- verbal order for 0.5mg ativan IV. See MAR [place] [id number] [facility] Name: Jessica Ash Procedure Date: 04/28/2023 2:16 PM Gender: Female Date of : 1945 Age: 78 Admit Type: Outpatient Note Status: Finalized Attending MD: José Miguel Reis MD, [id number] Procedure: Bronchoscopy Indications: Adenopathy, Known lung cancer of the left upper lobe Findings: An endobronchial ultrasound endoscope was utilized in order to assist with fine needle aspiration in the left and right paratracheal and subcarinal areas, in the right hilum and in the left hilum. Transbronchial needle aspirations were performed in the left and right paratracheal and subcarinal areas, in the right hilum and in the left hilum using a Musiwave Expect 25 gauge needle and sent for routine cytology. The procedure was guided by ultrasound. The sampling device penetrated the full thickness of the bronchial wall in order to reach the sampling site. Five samples were obtained. Left Lung Abnormalities: An area of friable mucosa was found in the left upper lobe. 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 - A transbronchial needle aspiration was performed. Recommendation: - Await cytology results. Medicines: General Anesthesia Procedure: Pre-Anesthesia Assessment: - A History and Physical has been performed. The patient's medications, allergies and sensitivities have been reviewed. - ASA Grade Assessment: II - A patient with mild systemic disease. - The anesthesia plan was to use general anesthesia. After I obtained informed consent, the scope was passed under direct vision. Throughout the procedure, the patient's blood pressure, pulse, and oxygen saturations were monitored continuously. The Bronchoscope was introduced through the mouth, via the endotracheal tube (the patient was intubated for the procedure) and advanced to the tracheobronchial tree of both lungs. The Bronchoscope was introduced through the mouth, via laryngeal mask airway and advanced to the tracheobronchial tree of both lungs. The procedure was unusually difficult due to the patient's respiratory instability (excessive coughing), the patient's respiratory instability and the patient's respiratory instability (hypoxia). Successful completion of the procedure was aided by intubation and assisted ventilation and managing the patient's medical instability. The patient tolerated the procedure. Complications: No immediate complications. Estimated blood loss: Minimal Procedure Code(s): --- Professional --- 03501, Bronchoscopy, rigid or flexible, including fluoroscopic guidance, when performed; with transbronchial needle aspiration biopsy(s), trachea, main stem and/or lobar bronchus(i) 73369, Bronchoscopy, rigid or flexible, including fluoroscopic guidance, when performed; with transendoscopic endobronchial ultrasound (EBUS) during bronchoscopic diagnostic or therapeutic intervention(s) for peripheral lesion(s) (List separately in addition to code for primary procedure[s]) Diagnosis Code(s): --- Professional --- R59.1, Generalized enlarged lymph nodes C34.12, Malignant neoplasm of upper lobe, left bronchus or lung CPT copyright 2021 [employer]. All rights reserved. The codes documented in this report are preliminary and upon food service aide review may be revised to meet current compliance requirements. Attending Participation: I personally performed the entire procedure. José Miguel Reis MD 04/28/2023 3:08:16 PM This report has been signed electronically. Number of Addenda: 0 Note Initiated On: 04/28/2023 2:[address] [facility]07-20-2023 Note* Perioperative Nursing Note - Oleg Fraser RN - 04/28/2023 4:07 PM EDT Reviewed homegoing instructions with patient and . [id number] Note* Perioperative Nursing Note - Oleg Fraser RN - 04/28/2023 4:07 PM EDT Reviewed homegoing instructions with patient and . [id number] NotePatient: Jessica Kenia Hernan Dye Procedure Information Date/Time: 04/28/23 1330 Procedure: EBUS WITH XRAY Location: [facility] ENDO 7 / [facility] Gastroenterology Providers: José Miguel Reis MD Relevant Problems Other (+) Non-small cell lung cancer (HCC) Past Medical History: Past Medical History: No date: Anxiety No date: Bradycardia No date: COPD (chronic obstructive pulmonary disease) (HCC) No date: Depression No date: Diabetes (HCC) No date: Former smoker No date: Hyperthyroidism No date: Mitral valve prolapse No date: MVP (mitral valve prolapse) No date: Obesity No date: Sleep apnea Past Surgical History: Past Surgical History: No date: APPENDECTOMY No date: CHOLECYSTECTOMY No date: HYSTERECTOMY Social History: TOBACCO: reports that she quit smoking about 28 years ago. Her smoking use included cigarettes. She started smoking about 59 years ago. She has a 62.00 pack-year smoking history. She has never used smokeless tobacco. ETOH: reports no history of alcohol use. Social History Substance and Sexual Activity Drug Use Never Family History: Family History Problem Relation Name Age of Onset ? Heart failure Mother ? Diabetes Mother ? Cancer Father ? Heart disease Father Screening: unknown Clinical information reviewed: Tobacco Allergies Meds Med Hx Surg Hx Fam Hx Soc Hx Physical Exam Airway Mallampati: II TM distance: >3 FB Neck ROM: full Mouth Open: normalendotracheal tube not in place Cardiovascular Dental dentition normal Pulmonary Abdominal Anesthesia Plan patient is NPO appropriate Any family history or previous problems with anesthesia no ASA 3 general Any family history or previous problems with anesthesia no The patient is not a current smoker. Anesthetic plan and risks discussed with patient. Use of blood products discussed with who consented to blood products. ANA Screening Labs: No results found for: WBC, HGB, HCT, MCV, PLT No results found for: NA, K, CL, CO2, BUN, CREATININE, GLUCOSE, CALCIUM, PROT, BILIRUBINFL, ALKPHOS, AST, ALT, EGFR, GLOB No echocardiogram results found for the past 14 days No results found for this or any previous visit.[facility] 04-28-2023 Note* Perioperative Nursing Note - Oleg Fraser RN - 04/28/2023 3:30 PM EDT at bedside. Glasses and dentures returned to patient. [facility] [id number] Note* Perioperative Nursing Note - Oleg Fraser RN - 04/28/2023 3:30 PM EDT at bedside. Glasses and dentures returned to patient. [facility] [id number] NoteChief Complaint: lung cancer History of Present Illness: HPI 78 y/o female with known ROSETTA lung cancer here for bronchoscopy/EBUS for preoperative mediastinal/hilar sumeet staging. She has multiple drug allergies. Past Medical History: Past Medical History: Diagnosis Date Anxiety Bradycardia COPD (chronic obstructive pulmonary disease) ([facility]) Depression Diabetes ([facility]) Former smoker Hyperthyroidism Mitral valve prolapse MVP (mitral valve prolapse) Obesity Sleep apnea Social History: Social History Socioeconomic History Marital status: Tobacco Use Smoking status: Former Packs/day: 2.00 Years: 31.00 Pack years: 62.00 Types: Cigarettes Start date: 1963 Quit date: 10/10/1994 Years since quittin.5 Smokeless tobacco: Never Substance and Sexual Activity Alcohol use: Never Drug use: Never Family History: Family History Problem Relation Name Age of Onset Heart failure Mother Diabetes Mother Cancer Father Heart disease Father ROS: Review of Systems All other systems reviewed and are negative. Medications: No current facility-administered medications for this encounter. Allergies: Allergies Allergen Reactions Aspirin Shortness of breath Other reaction(s): Shortness of breath Other reaction(s): Shortness of breath Epinephrine Unknown Prochlorperazine Anaphylaxis Cephalexin Other reaction(s): Unknown Other reaction(s): Unknown Other reaction(s): Unknown Cephalosporins Other reaction(s): Unknown Codeine Other reaction(s): Unknown, Unknown Other reaction(s): Unknown Other reaction(s): Unknown Diphenhydramine Hives Other reaction(s): Hives Other reaction(s): Hives Doxycycline Other reaction(s): Unknown Other reaction(s): Unknown Other reaction(s): Unknown Erythromycin Base Other reaction(s): Unknown Other reaction(s): Unknown Other reaction(s): Unknown Ibuprofen Other reaction(s): Unknown Other reaction(s): Unknown Other reaction(s): Unknown Iodinated Contrast Media Other reaction(s): Anaphylaxis Lidocaine Other reaction(s): Unknown Other reaction(s): Unknown Other reaction(s): Unknown Meperidine Other reaction(s): Unknown Other reaction(s): Unknown Other reaction(s): Unknown Morphine Other reaction(s): Unknown Penicillins Other reaction(s): Unknown, Unknown Other reaction(s): Unknown Other reaction(s): Unknown Acetaminophen Rash Other reaction(s): Rash Other reaction(s): Rash Nsaids Rash Physical Exam: BP Temp Pulse Resp SpO2 Physical Exam Vitals reviewed. Constitutional: General: She is not in acute distress. Appearance: She is not ill-appearing. Cardiovascular: Rate and Rhythm: Normal rate. Pulmonary: Effort: Pulmonary effort is normal. Skin: General: Skin is warm and dry. Findings: No rash. Neurological: General: No focal deficit present. Mental Status: She is alert and oriented to person, place, and time. Assessment and Plan: ROSETTA lung cancer. Plan bronchoscopy with EBUS for lymph node evaluation/sampling/staging. Multiple drug allergies- anticipate sedation to involve anxiolysis with versed and anesthetic gas. [facility]07-20-2023 Hospital Discharge instructions* Discharge Instructions* Oleg Fraser RN - 04/28/2023 3:20 PM EDT ACTIVITY: DO NOT DRIVE, OPERATE MACHINERY, OR DRINK ANY ALCOHOL TODAY. Avoid making critical decisions, signing legal documents, or performing any activity that requires alertness for the rest of the day. You may experience a sore throat, hoarse voice, or dry mouth after your procedure. You may use an [id number] Chloraseptic spray, gargle with warm salt water, or use throat lozenges. Notify yourphysician if this feeling lasts more than 48 hours. You may spit up a small amount of blood or have bloody saliva. This is normal. Rest the remainder of the day. You may resume normal activity tomorrow. You may return to work tomorrow. DIET: You may resume a normal diet 1-2 hours after your procedure, unless notified or recommended by yourphysician. Start with sips of water and progress as tolerated. If it is painful to swallow, start with cold drinks or flavored popsicles. Advance to soft foods astolerated. Drink plenty of fluids for the first 24 hours (unless your physician states otherwise). MEDICATION: Resume your normal home medications unless notified or recommended by your physician. If you take blood thinners (such as Coumadin, Eliquis, Plavix, Aspirin, etc.) or anti-inflammatory medications (Advil, Motrin, Aleve, etc.), ask your physician when you may resume these medications. FOLLOW-UP APPOINTMENT: Follow up with or call your physician as needed. When to call the Doctor: Call your doctor IMMEDIATELY or seek medical care if you experience: Severe pain or vomiting Coughing up more than a teaspoon of blood Bubbles under the skin around your neck that crack and pop when you press on them A fever greater than 101 degrees Redness or swelling of arm from the IV site for more than 48 hours Sudden onset of chest pain or shortness of breath If you become extremely dizzy or pass out (lose consciousness) IF YOU ARE UNABLE TO REACH YOUR PHYSICIAN GO TO NEAREST EMERGENCY DEPARTMENT documented in this [facility]07-20-2023 Note* Op Note - José Miguel Reis MD - 04/28/2023 2:16 PM EDT Endoscopy Center- [facility] Patient Name: Jessica Ash Procedure Date: 04/28/2023 2:16 PM Gender: Female Date of : 1945 Age: 78 Admit Type: Outpatient Note Status: Finalized Attending MD: José Miguel Reis MD, [id number] Procedure: Bronchoscopy Indications: Adenopathy, Known lung cancer of the left upper lobe Findings: An endobronchial ultrasound endoscope was utilized in order to assist with fine needle aspiration in the left and right paratracheal and subcarinal areas, in the right hilum and in the left hilum. Transbronchial needle aspirations were performed in the left and right paratracheal and subcarinal areas, in the right hilum and in the left hilum using a Musiwave Expect 25 gauge needle and sent for routine cytology. The procedure was guided by ultrasound. The sampling device penetrated the full thickness of the bronchial wall in order to reach the sampling site. Five samples were obtained. Left Lung Abnormalities: An area of friable mucosa was found in the left upper lobe. 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 - A transbronchial needle aspiration was performed. Recommendation: - Await cytology results. Medicines: General Anesthesia Procedure: Pre-Anesthesia Assessment: - A History and Physical has been performed. The patient's medications, allergies and sensitivities have been reviewed. - ASA Grade Assessment: II - A patient with mild systemic disease. - The anesthesia plan was to use general anesthesia. After I obtained informed consent, the scope was passed under direct vision. Throughout the procedure, the patient's blood pressure, pulse, and oxygen saturations were monitored continuously. The Bronchoscope was introduced through the mouth, via the endotracheal tube (the patient was intubated for the procedure) and advanced to the tracheobronchial tree of both lungs. The Bronchoscope was introduced through the mouth, via laryngeal mask airway and advanced to the tracheobronchial tree of both lungs. The procedure was unusually difficult due to the patient's respiratory instability (excessive coughing), the patient's respiratory instability and the patient's respiratory instability (hypoxia). Successful completion of the procedure was aided by intubation and assisted ventilation and managing the patient's medical instability. The patient tolerated the procedure. Complications: No immediate complications. Estimated blood loss: Minimal Procedure Code(s): --- Professional --- 73741, Bronchoscopy, rigid or flexible, including fluoroscopic guidance, when performed; with transbronchial needle aspiration biopsy(s), trachea, main stem and/or lobar bronchus(i) 79520, Bronchoscopy, rigid or flexible, including fluoroscopic guidance, when performed; with transendoscopic endobronchial ultrasound (EBUS) during bronchoscopic diagnostic or therapeutic intervention(s) for peripheral lesion(s) (List separately in addition to code for primary procedure[s]) Diagnosis Code(s): --- Professional --- R59.1, Generalized enlarged lymph nodes C34.12, Malignant neoplasm of upper lobe, left bronchus or lung CPT copyright 2021 [employer]. All rights reserved. The codes documented in this report are preliminary and upon food service aide review may be revised to meet current compliance requirements. Attending Participation: I personally performed the entire procedure. José Miguel Reis MD 04/28/2023 3:08:16 PM This report has been signed electronically. Number of Addenda: 0 Note Initiated On: 04/28/2023 2:16 PM [id number] Note* Op Note - José Miguel Reis MD - 04/28/2023 2:16 PM EDT Endoscopy Center- [facility] Patient Name: Jessica Dye Procedure Date: 04/28/2023 2:16 PM Gender: Female Date of : 1945 Age: 78 Admit Type: Outpatient Note Status: Finalized Attending MD: José Miguel Reis MD, [id number] Procedure: Bronchoscopy Indications: Adenopathy, Known lung cancer of the left upper lobe Findings: An endobronchial ultrasound endoscope was utilized in order to assist with fine needle aspiration in the left and right paratracheal and subcarinal areas, in the right hilum and in the left hilum. Transbronchial needle aspirations were performed in the left and right paratracheal and subcarinal areas, in the right hilum and in the left hilum using a Musiwave Expect 25 gauge needle and sent for routine cytology. The procedure was guided by ultrasound. The sampling device penetrated the full thickness of the bronchial wall in order to reach the sampling site. Five samples were obtained. Left Lung Abnormalities: An area of friable mucosa was found in the left upper lobe. 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 - A transbronchial needle aspiration was performed. Recommendation: - Await cytology results. Medicines: General Anesthesia Procedure: Pre-Anesthesia Assessment: - A History and Physical has been performed. The patient's medications, allergies and sensitivities have been reviewed. - ASA Grade Assessment: II - A patient with mild systemic disease. - The anesthesia plan was to use general anesthesia. After I obtained informed consent, the scope was passed under direct vision. Throughout the procedure, the patient's blood pressure, pulse, and oxygen saturations were monitored continuously. The Bronchoscope was introduced through the mouth, via the endotracheal tube (the patient was intubated for the procedure) and advanced to the tracheobronchial tree of both lungs. The Bronchoscope was introduced through the mouth, via laryngeal mask airway and advanced to the tracheobronchial tree of both lungs. The procedure was unusually difficult due to the patient's respiratory instability (excessive coughing), the patient's respiratory instability and the patient's respiratory instability (hypoxia). Successful completion of the procedure was aided by intubation and assisted ventilation and managing the patient's medical instability. The patient tolerated the procedure. Complications: No immediate complications. Estimated blood loss: Minimal Procedure Code(s): --- Professional --- 61384, Bronchoscopy, rigid or flexible, including fluoroscopic guidance, when performed; with transbronchial needle aspiration biopsy(s), trachea, main stem and/or lobar bronchus(i) 95623, Bronchoscopy, rigid or flexible, including fluoroscopic guidance, when performed; with transendoscopic endobronchial ultrasound (EBUS) during bronchoscopic diagnostic or therapeutic intervention(s) for peripheral lesion(s) (List separately in addition to code for primary procedure[s]) Diagnosis Code(s): --- Professional --- R59.1, Generalized enlarged lymph nodes C34.12, Malignant neoplasm of upper lobe, left bronchus or lung CPT copyright 2021 [employer]. All rights reserved. The codes documented in this report are preliminary and upon food service aide review may be revised to meet current compliance requirements. Attending Participation: I personally performed the entire procedure. José Miguel Reis MD 04/28/2023 3:08:16 PM This report has been signed electronically. Number of Addenda: 0 Note Initiated On: 04/28/2023 2:16 PM [facility] [id number] History and physical note* José Miguel Reis MD - 04/28/2023 1:29 PM EDT Chief Complaint: lung cancer History of Present Illness: HPI 78 y/o female with known ROSETTA lung cancer here for bronchoscopy/EBUSfor preoperative mediastinal/hilar sumeet staging. She has multiple drug allergies. Past Medical History: Past Medical History: Diagnosis Date Anxiety Bradycardia COPD (chronic obstructive pulmonary disease) (HCC) Depression Diabetes (HCC) Former smoker Hyperthyroidism Mitral valve prolapse MVP (mitral valve prolapse) Obesity Sleep apnea Social History: Social History Socioeconomic History Marital status: Tobacco Use Smoking status: Former Packs/day: 2.00 Years: 31.00 Pack years: 62.00 Types: Cigarettes Start date: 1963 Quit date: 10/10/1994 Years since quittin.5 Smokeless tobacco: Never Substance and Sexual Activity Alcohol use: Never Drug use: Never Family History: Family History Problem Relation Name Age of Onset Heart failure Mother Diabetes Mother Cancer Father Heart disease Father ROS: Review of Systems All other systems reviewed and are negative. Medications: No current facility-administered medications for this encounter. Allergies: Allergies Allergen Reactions Aspirin Shortness of breath Other reaction(s): Shortness of breath Other reaction(s): Shortness of breath Epinephrine Unknown Prochlorperazine Anaphylaxis Cephalexin Other reaction(s): Unknown Other reaction(s): Unknown Other reaction(s): Unknown Cephalosporins Other reaction(s): Unknown Codeine Other reaction(s): Unknown, Unknown Other reaction(s): Unknown Other reaction(s): Unknown Diphenhydramine Hives Other reaction(s): Hives Other reaction(s): Hives Doxycycline Other reaction(s): Unknown Other reaction(s): Unknown Other reaction(s): Unknown Erythromycin Base Other reaction(s): Unknown Other reaction(s): Unknown Other reaction(s): Unknown Ibuprofen Other reaction(s): Unknown Other reaction(s): Unknown Other reaction(s): Unknown Iodinated Contrast Media Other reaction(s): Anaphylaxis Lidocaine Other reaction(s): Unknown Other reaction(s): Unknown Other reaction(s): Unknown Meperidine Other reaction(s): Unknown Other reaction(s): Unknown Other reaction(s): Unknown Morphine Other reaction(s): Unknown Penicillins Other reaction(s): Unknown, Unknown Other reaction(s): Unknown Other reaction(s): Unknown Acetaminophen Rash Other reaction(s): Rash Other reaction(s): Rash Nsaids Rash Physical Exam: BP Temp Pulse Resp SpO2 Physical Exam Vitals reviewed. Constitutional: General: She is not in acute distress. Appearance: She is not ill-appearing. Cardiovascular: Rate and Rhythm: Normal rate. Pulmonary: Effort: Pulmonary effort is normal. Skin: General: Skin is warm and dry. Findings: No rash. Neurological: General: No focal deficit present. Mental Status: She is alert and oriented to person, place, and time. Assessment and Plan: ROSETTA lung cancer. Plan bronchoscopy with EBUS for lymph node evaluation/sampling/staging. Multiple drug allergies- anticipate sedation to involve anxiolysis with versed and anesthetic gas. [facility] Phone: [phone] History and physical note* José Miguel Reis MD - 04/28/2023 1:29 PM EDT Chief Complaint: lung cancer History of Present Illness: HPI 78 y/o female with known ROSETTA lung cancer here for bronchoscopy/EBUSfor preoperative mediastinal/hilar sumeet staging. She has multiple drug allergies. Past Medical History: Past Medical History: Diagnosis Date Anxiety Bradycardia COPD (chronic obstructive pulmonary disease) (HCC) Depression Diabetes (HCC) Former smoker Hyperthyroidism Mitral valve prolapse MVP (mitral valve prolapse) Obesity Sleep apnea Social History: Social History Socioeconomic History Marital status: Tobacco Use Smoking status: Former Packs/day: 2.00 Years: 31.00 Pack years: 62.00 Types: Cigarettes Start date: 1963 Quit date: 10/10/1994 Years since quittin.5 Smokeless tobacco: Never Substance and Sexual Activity Alcohol use: Never Drug use: Never Family History: Family History Problem Relation Name Age of Onset Heart failure Mother Diabetes Mother Cancer Father Heart disease Father ROS: Review of Systems All other systems reviewed and are negative. Medications: No current facility-administered medications for this encounter. Allergies: Allergies Allergen Reactions Aspirin Shortness of breath Other reaction(s): Shortness of breath Other reaction(s): Shortness of breath Epinephrine Unknown Prochlorperazine Anaphylaxis Cephalexin Other reaction(s): Unknown Other reaction(s): Unknown Other reaction(s): Unknown Cephalosporins Other reaction(s): Unknown Codeine Other reaction(s): Unknown, Unknown Other reaction(s): Unknown Other reaction(s): Unknown Diphenhydramine Hives Other reaction(s): Hives Other reaction(s): Hives Doxycycline Other reaction(s): Unknown Other reaction(s): Unknown Other reaction(s): Unknown Erythromycin Base Other reaction(s): Unknown Other reaction(s): Unknown Other reaction(s): Unknown Ibuprofen Other reaction(s): Unknown Other reaction(s): Unknown Other reaction(s): Unknown Iodinated Contrast Media Other reaction(s): Anaphylaxis Lidocaine Other reaction(s): Unknown Other reaction(s): Unknown Other reaction(s): Unknown Meperidine Other reaction(s): Unknown Other reaction(s): Unknown Other reaction(s): Unknown Morphine Other reaction(s): Unknown Penicillins Other reaction(s): Unknown, Unknown Other reaction(s): Unknown Other reaction(s): Unknown Acetaminophen Rash Other reaction(s): Rash Other reaction(s): Rash Nsaids Rash Physical Exam: BP Temp Pulse Resp SpO2 Physical Exam Vitals reviewed. Constitutional: General: She is not in acute distress. Appearance: She is not ill-appearing. Cardiovascular: Rate and Rhythm: Normal rate. Pulmonary: Effort: Pulmonary effort is normal. Skin: General: Skin is warm and dry. Findings: No rash. Neurological: General: No focal deficit present. Mental Status: She is alert and oriented to person, place, and time. Assessment and Plan: ROSETTA lung cancer. Plan bronchoscopy with EBUS for lymph node evaluation/sampling/staging. Multiple drug allergies- anticipate sedation to involve anxiolysis with versed and anesthetic gas. documented in this [facility]SS[facility] [id number] NoteSpoke with BB regarding EBUS. Ok for versed for procedure and to talk with anesthesia the day of. Left exact message with RN line call back should she have further questions.[facility]07-17-2023 Telephone encounter Note* Telephone Encounter - Chandra Tamez RN - 04/25/2023 9:14 AM EDT I found the old TE regarding Dr Uribe's message that it would be versed with possible sevofurane.I called the patient back x2 as she didn't answer the first time. I explained that I found the noteand what it stated exactly possible sevofurane. Patient said I talked with Dr Uribe's office and they said versed only....nothing about sevofurane. Patient said I'm not going to argue with you. I reread the message to her and she hung up on me again... Patient is well aware of what was discussed with her by multiple doctors on her anesthesia. Patient knows that her procedure is scheduled for April 28. Closing call. [facility] [id number] Miscellaneous Notes* Telephone Encounter - Chandra Tamez RN - 04/25/2023 9:14 AM EDT I found the old TE regarding Dr Uribe's message that it would be versed with possible sevofurane.I called the patient back x2 as she didn't answer the first time. I explained that I found the noteand what it stated exactly possible sevofurane. Patient said I talked with Dr Uribe's office and they said versed only....nothing about sevofurane. Patient said I'm not going to argue with you. I reread the message to her and she hung up on me again... Patient is well aware of what was discussed with her by multiple doctors on her anesthesia. Patient knows that her procedure is scheduled for April 28. Closing call. * Telephone Encounter - Cahndra Tamez RN - 04/25/2023 9:12 AM EDT Called the patient back and spoke with her. She was inquiring about what they were going to use to put her too sleep. I didn't know at the time and I explained that to the patient. She had a previousappointment with Dr Johnson which they had gone over this. Patient wasn't satisfied with this answer and hung up on me. * Telephone Encounter - Chandra Tamez RN - 04/25/2023 9:11 AM EDT Patient called and left a message on the voicemail requesting a call back. * Telephone Encounter - Chandra Tamez RN - 04/20/2023 9:12 AM EDT New Care coordination created. Patient scheduled for April 28 at 1:30 with BB. * Telephone Encounter - Carlene Cox RN - 04/13/2023 3:10 PM EDT This RN spoke with patient to advise Dr. Love recommended Versed and that Dr. Johnson said they can use Versed and possibly an inhaled anesthesia called Sevoflourane. This RN attempted to schedule EBUS next week with Dr. Reis. Patient is still not agreeable to schedule procedure at this time and states she does not want to schedule procedure with Dr. Reis. Patient still had many questions about why the procedure needs done, exactly what is the plan for anesthesia etc. This RN discussed with Dr. Johnson and he advised to schedule telephone appointment after her PET scheduled 04/15/23 and he will discuss with her. Patient agreeable. Follow up telephone appointment scheduled 04/19/23 12:[address] Johnson. * Telephone Encounter - Carlene Cox RN - 04/13/2023 3:10 PM EDT Images from the original note were not included. * Telephone Encounter - Carlene Cox RN - 04/11/2023 11:56 AM EDT This RN received call back from patient's Inorganic Chemical Technician, Dr. Love. 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 He states the bigger issue is that patient has severe anxiety,especially regarding being put to sleep with general anesthesia. He is inquiring if we can use Versed for her EBUS procedure instead. Dr. Love will call back after the holiday on Tuesday to discuss further. * Telephone Encounter - Carlene Cox RN - 04/08/2023 11:13 AM EDT This RN called Dr. Love's office to set up phone call with Dr. Johnson. Staff advised if he gets a break after his morning patients he will try to call to discuss. Dr. Johnson notified. * Telephone Encounter - Carlene Cox RN - 04/06/2023 3:38 PM EDT Patient returned 04/04/23 call and stated she was not comfortable to schedule EBUS procedure as she is still very worried about her propofol allergy and feels we are not taking it seriously. Patient scheduled for a telephone appointment with Dr. Johnson 04/05/[address] Johnson advised patient I still not comfortable scheduling or receiving propofol and does not want any sedation. Dr. Johnson advised he will discuss with her sql bi developer, Dr. Jennifer Stubbs [phone] and anesthesia team. * Telephone Encounter - Carlene Cox RN - 04/04/2023 10:05 AM EDT This RN attempted to reach patient regarding scheduling EBUS procedure. No answer. Left voice mail to return call at direct line. * Telephone Encounter - Carlene Cox RN - 04/04/2023 10:00 AM EDT This RN met with patient in the office after her 03/31/[address] Reis to discuss EBUS scheduling and itinerary. Patient requests to call me in a few days to schedule procedure. documented in this [facility]07-17-2023 Telephone encounter Note* Telephone Encounter - Chandra Tamez RN - 04/25/2023 9:12 AM EDT Called the patient back and spoke with her. She was inquiring about what they were going to use to put her too sleep. I didn't know at the time and I explained that to the patient. She had a previousappointment with Dr Johnson which they had gone over this. Patient wasn't satisfied with this answer and hung up on me. [facility] [id number] Telephone encounter Note* Telephone Encounter - Chandra Tamez RN - 04/25/2023 9:11 AM EDT Patient called and left a message on the voicemail requesting a call back. [facility] [id number] Telephone encounter Note* Telephone Encounter - Chandra Tamez RN - 04/20/2023 9:12 AM EDT New Care coordination created. Patient scheduled for April 28 at 1:30 with BB. [facility] [id number] NotePatient was seen today via Telehealth by agreement and consent in light of the current COVID-19 pandemic. I used the following Telehealth technology: Audio capability only. Total length of call 11 minutes. The patient was offered and advised video for a more comprehensive evaluation, but the patient declined or was unable to use video. Patient location: Home. This patient encounter is appropriate and reasonable under the circumstances given the patient's particular presentation at this time. The patient has been advised of the potential risks and limitations of this mode of treatment (including but not limited to the absence of in-person examination) and has agreed to be treated in a remote fashion in spite of them. Any and all of the patient's/patient's family's questions on this issue have been answered and I have made no promises or guarantees to the patient. The patient has also been advised to contact this office for worsening conditions or problems, and seek emergency medical treatment and/or call 911 if the patient deems either necessary. The patient stated that they are currently in the state [facility]. If the patient is a minor, permission has been obtained by the parent or guardian for the patient to receive medical care at this visit. Patient call today for ongoing concerns regarding sedatives/anesthsia. Call again today to discuss need for EBUS. PET reviewed with patient and CTS Discussed case directly with CTS, called RAMÓN pritchard to proceed with procedure using alternative sedation, such as benzo etc and avoid propofol. Discussed with Dr Reis. C34.90 (unspecified neoplasm of bronchus or lung) --needs staging EBUS, s.p. CT biopsy with NSCLC. Orders placed as she is agreeable. Patient agreeable to procedure. Will schedule DEONTE. Jennifer Johnson MD 4:32 PM 04/19/23 Pulmonary and Critical Care Medicine [facility]07-11-2023 History of Present illness Narrative* Jennifer Johnson MD - 04/19/2023 12:00 PM EDT Patient was seen today via Telehealth by agreement and consent in light of the current COVID-19 pandemic. I used the following Telehealth technology: Audio capability only. Total length of call 11 minutes. The patient was offered and advised video for a more comprehensive evaluation, but the patient declined or was unable to use video. Patient location: Home. This patient encounter is appropriateand reasonable under the circumstances given the patient's particular presentation at this time. The patient has been advised of the potential risks and limitations of this mode of treatment (including but not limited to the absence of in-person examination) and has agreed to be treated in a remote fashion in spite of them. Any and all of the patient's/patient's family's questions on this issue have been answered and I have made no promises or guarantees to the patient. The patient has also been advised to contact this office for worsening conditions or problems, and seek emergency medical edward atment and/or call 911 if the patient deems either necessary. The patient stated that they are currently in the state [facility]. If the patient is a minor, permission has been obtained by the parent orguardian for the patient to receive medical care at this visit. Call again today to discuss need for EBUS. PET reviewed with patient and CTS Discussed case directly with CTS, called RAMÓN pritchard to proceed with procedure using alternative sedation, such as benzo etc and avoid propofol. Discussed with Dr Reis. Patient agreeable to procedure. Will schedule DEONTE. Jennifer Johnson MD 4:32 PM 04/19/23 Pulmonary and Critical Care Medicine Attending documented in this [facility]07-11-2023 History of Present illness Narrative* Jennifer Johnson MD - 04/19/2023 12:00 PM EDT Patient was seen today via Telehealth by agreement and consent in light of the current COVID-19 pandemic. I used the following Telehealth technology: Audio capability only. Total length of call 11 minutes. The patient was offered and advised video for a more comprehensive evaluation, but the patient declined or was unable to use video. Patient location: Home. This patient encounter is appropriateand reasonable under the circumstances given the patient's particular presentation at this time. The patient has been advised of the potential risks and limitations of this mode of treatment (including but not limited to the absence of in-person examination) and has agreed to be treated in a remote fashion in spite of them. Any and all of the patient's/patient's family's questions on this issue have been answered and I have made no promises or guarantees to the patient. The patient has also been advised to contact this office for worsening conditions or problems, and seek emergency medical edward atment and/or call 911 if the patient deems either necessary. The patient stated that they are currently in the [facility]. If the patient is a minor, permission has been obtained by the parent orguardian for the patient to receive medical care at this visit. Patient call today for ongoing concerns regarding sedatives/anesthsia. Call again today to discuss need for EBUS. PET reviewed with patient and CTS Discussed case directly with CTS, called sql bi developer, OK to proceed with procedure using alternative sedation, such as benzo etc and avoid propofol. Discussed with Dr Reis. C34.90 (unspecified neoplasm of bronchus or lung) --needs staging EBUS, s.p. CT biopsy with NSCLC. Orders placed as she is agreeable. Patient agreeable to procedure. Will schedule DEONTE. Jennifer Johnson MD 4:32 PM 04/19/23 Pulmonary and Critical Care Medicine Attending documented in this [facility]07-05-2023 Telephone encounter Note* Telephone Encounter - Carlene Cox RN - 04/13/2023 3:10 PM EDT This RN spoke with patient to advise Dr. Love recommended Versed and that Dr. Johnson said they can use Versed and possibly an inhaled anesthesia called Sevoflourane. This RN attempted to schedule EBUS next week with Dr. Reis. Patient is still not agreeable to schedule procedure at this time and states she does not want to schedule procedure with Dr. Reis. Patient still had many questions about why the procedure needs done, exactly what is the plan for anesthesia etc. This RN discussed with Dr. Johnson and he advised to schedule telephone appointment after her PET scheduled 04/15/23 and he will discuss with her. Patient agreeable. Follow up telephone appointment scheduled 04/19/23 12:[address] Johnson. [facility] [id number] Telephone encounter Note* Telephone Encounter - Carlene Cox RN - 04/13/2023 3:10 PM EDT Images from the original note were not included. [facility] [id number] Miscellaneous Notes* Telephone Encounter - Carlene Cox RN - 04/13/2023 3:10 PM EDT This RN spoke with patient to advise Dr. Love recommended Versed and that Dr. Johnson said they can use Versed and possibly an inhaled anesthesia called Sevoflourane. This RN attempted to schedule EBUS next week with Dr. Reis. Patient is still not agreeable to schedule procedure at this time and states she does not want to schedule procedure with Dr. Reis. Patient still had many questions about why the procedure needs done, exactly what is the plan for anesthesia etc. This RN discussed with Dr. Johnson and he advised to schedule telephone appointment after her PET scheduled 04/15/23 and he will discuss with her. Patient agreeable. Follow up telephone appointment scheduled 04/19/23 12:[address] Johnson. * Telephone Encounter - Carlene Cox RN - 04/13/2023 3:10 PM EDT Images from the original note were not included. * Telephone Encounter - Carlene Cox RN - 04/11/2023 11:56 AM EDT This RN received call back from patient's Inorganic Chemical Technician, Dr. Love. 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 He states the bigger issue is that patient has severe anxiety,especially regarding being put to sleep with general anesthesia. He is inquiring if we can use Versed for her EBUS procedure instead. Dr. Love will call back after the hol on Tuesday to discuss further. * Telephone Encounter - Carlene Cox RN - 04/08/2023 11:13 AM EDT This RN called Dr. Love's office to set up phone call with Dr. Johnson. Staff advised if he gets a break after his morning patients he will try to call to discuss. Dr. Johnson notified. * Telephone Encounter - Carlene Cox RN - 04/06/2023 3:38 PM EDT Patient returned 04/04/23 call and stated she was not comfortable to schedule EBUS procedure as she is still very worried about her propofol allergy and feels we are not taking it seriously. Patient scheduled for a telephone appointment with Dr. Johnson 04/05/[address] Johnson advised patient I still not comfortable scheduling or receiving propofol and does not want any sedation. Dr. Johnson advised he will discuss with her sql bi developer, Dr. Jennifer Stubbs [phone] and anesthesia team. * Telephone Encounter - Carlene Cox RN - 04/04/2023 10:05 AM EDT This RN attempted to reach patient regarding scheduling EBUS procedure. No answer. Left voice mail to return call at direct line. * Telephone Encounter - Carlene Cox RN - 04/04/2023 10:00 AM EDT This RN met with patient in the office after her 03/31/[address] Reis to discuss EBUS scheduling and itinerary. Patient requests to call me in a few days to schedule procedure. documented in this [facility]SSouth[facility] [id number] Telephone encounter Note* Telephone Encounter - Carlene Cox RN - 04/11/2023 11:56 AM EDT This RN received call back from patient's Inorganic Chemical Technician, Dr. Love. 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 He states the bigger issue is that patient has severe anxiety,especially regarding being put to sleep with general anesthesia. He is inquiring if we can use Versed for her EBUS procedure instead. Dr. Love will call back after the holiday on Tuesday to discuss further. [facility] [id number] Miscellaneous Notes* Telephone Encounter - Carlene Cox RN - 04/11/2023 11:56 AM EDT This RN received call back from patient's Inorganic Chemical Technician, Dr. Love. 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 He states the bigger issue is that patient has severe anxiety,especially regarding being put to sleep with general anesthesia. He is inquiring if we can use Versed for her EBUS procedure instead. Dr. Love will call back after the hol on Tuesday to discuss further. * Telephone Encounter - Carlene Cox RN - 04/08/2023 11:13 AM EDT This RN called Dr. Love's office to set up phone call with Dr. Johnson. Staff advised if he gets a break after his morning patients he will try to call to discuss. Dr. Johnson notified. * Telephone Encounter - Carlene Cox RN - 04/06/2023 3:38 PM EDT Patient returned 04/04/23 call and stated she was not comfortable to schedule EBUS procedure as she is still very worried about her propofol allergy and feels we are not taking it seriously. Patient scheduled for a telephone appointment with Dr. Johnson 04/05/[address] Johnson advised patient I still not comfortable scheduling or receiving propofol and does not want any sedation. Dr. Johnson advised he will discuss with her sql bi developer, Dr. Jennifer Stubbs [phone] and anesthesia team. * Telephone Encounter - Carlene Cox RN - 04/04/2023 10:05 AM EDT This RN attempted to reach patient regarding scheduling EBUS procedure. No answer. Left voice mail to return call at direct line. * Telephone Encounter - Carlene Cox RN - 04/04/2023 10:00 AM EDT This RN met with patient in the office after her 6/22/[address] Reis to discuss EBUS scheduling and itinerary. Patient requests to call me in a few days to schedule procedure. documented in this [facility]06-30-2023 Telephone encounter Note* Telephone Encounter - Carlene Cox RN - 04/08/2023 11:13 AM EDT This RN called Dr. Love's office to set up phone call with Dr. Johnson. Staff advised if he gets a break after his morning patients he will try to call to discuss. Dr. Johnson notified. [facility] [id number] Miscellaneous Notes* Telephone Encounter - Carlene Cox RN - 04/08/2023 11:13 AM EDT This RN called Dr. Love's office to set up phone call with Dr. Johnson. Staff advised if he gets a break after his morning patients he will try to call to discuss. Dr. Johnson notified. * Telephone Encounter - Carlene Cox RN - 04/06/2023 3:38 PM EDT Patient returned 04/04/23 call and stated she was not comfortable to schedule EBUS procedure as she is still very worried about her propofol allergy and feels we are not taking it seriously. Patient scheduled for a telephone appointment with Dr. Johnson 04/05/[address]. [address] Johnson advised patient I still not comfortable scheduling or receiving propofol and does not want any sedation. Dr. Johnson advised he will discuss with her sql bi developer, Dr. Jennifer Stubbs [phone] and anesthesia team. * Telephone Encounter - Carlene Cox RN - 04/04/2023 10:05 AM EDT This RN attempted to reach patient regarding scheduling EBUS procedure. No answer. Left voice mail to return call at direct line. * Telephone Encounter - Carlene Cox RN - 04/04/2023 10:00 AM EDT This RN met with patient in the office after her 03/31/[address] Reis to discuss EBUS scheduling and itinerary. Patient requests to call me in a few days to schedule procedure. documented in this [facility]06-28-2023 NotePatient returned 04/04/23 call and stated she was not comfortable to schedule EBUS procedure as she is still very worried about her propofol allergy and feels we are not taking it seriously. Patient scheduled for a telephone appointment with Dr. Johnson 04/05/[address] Johnson advised patient I still not comfortable scheduling or receiving propofol and does not want any sedation. Dr. Johnson advised he will discuss with her sql bi developer, Dr. Jennifer Stubbs [phone] and anesthesia team.[facility]06-28-2023 Telephone encounter Note* Telephone Encounter - Carlene Cox RN - 04/06/2023 3:38 PM EDT Patient returned 04/04/23 call and stated she was not comfortable to schedule EBUS procedure as she is still very worried about her propofol allergy and feels we are not taking it seriously. Patient scheduled for a telephone appointment with Dr. Johnson 04/05/[address] Johnson advised patient I still not comfortable scheduling or receiving propofol and does not want any sedation. Dr. Johnson advised he will discuss with her sql bi developer, Dr. Jennifer Stubbs [phone] and anesthesia team. [facility] [id number] Miscellaneous Notes* Telephone Encounter - Carlene Cox RN - 04/06/2023 3:38 PM EDT Patient returned 04/04/23 call and stated she was not comfortable to schedule EBUS procedure as she is still very worried about her propofol allergy and feels we are not taking it seriously. Patient scheduled for a telephone appointment with Dr. Johnson 04/05/[address] Johnson advised patient I still not comfortable scheduling or receiving propofol and does not want any sedation. Dr. Johnson advised he will discuss with her sql bi developer, Dr. Jennifer Stubbs [phone] and anesthesia team. * Telephone Encounter - Carlene Cox RN - 04/04/2023 10:05 AM EDT This RN attempted to reach patient regarding scheduling EBUS procedure. No answer. Left voice mail to return call at direct line. * Telephone Encounter - Carlene Cox RN - 04/04/2023 10:00 AM EDT This RN met with patient in the office after her 03/31/[address] Reis to discuss EBUS scheduling and itinerary. Patient requests to call me in a few days to schedule procedure. documented in this encounterSSouthwest [facility] Health [id number] NotePatient was seen today via Telehealth by agreement and consent in light of the current COVID-19 pandemic. I used the following Telehealth technology: Audio capability only. Total length of call 12 minutes. The patient was offered and advised video for a more comprehensive evaluation, but the patient declined or was unable to use video. Patient location: Home. This patient encounter is appropriate and reasonable under the circumstances given the patient's particular presentation at this time. The patient has been advised of the potential risks and limitations of this mode of treatment (including but not limited to the absence of in-person examination) and has agreed to be treated in a remote fashion in spite of them. Any and all of the patient's/patient's family's questions on this issue have been answered and I have made no promises or guarantees to the patient. The patient has also been advised to contact this office for worsening conditions or problems, and seek emergency medical treatment and/or call 911 if the patient deems either necessary. The patient stated that they are currently in the state [facility]. If the patient is a minor, permission has been obtained by the parent or guardian for the patient to receive medical care at this visit. Total time spent on visit includes but not limited to talking to patient, reviewing previous records, discussion with other specialists, documentation and coordination of care. 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 She presented this past winter with cough and had a CXR. She eventually had a CT chest and PET. Biopsy of ROSETTA was attempted with CT guidance which resulted in hemorrhage in December and was non-diagnostic at [place]. Subsequently seen in [place] and had repeat biopsy which demonstrated malignancy and referred to [facility] for possible surgical resection. A Repeat PET has been ordered. PFTs showed only mild obstruction with normal gas exchange. Treatment is complicated by multiple drug allergies including epinephrine. She was noted to have mild adenopathy and staging EBUS was requested by thoracic surgery. Patient presents today due to concerns regarding allergic reaction to possible anesthesia. She is very concerned about allergy to propofol. She also has never had any anesthesia except local in many year sas she has not had surgery. 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 She follows with Dr Blake, sql bi developer in [facility]. I advised her I will discuss her concerns with her sql bi developer and our anesthesia team and assess their input but I cannot do an EBUS without sedation.[facility] [id number] History of Present illness Narrative* Jennifer Johnson MD - 04/05/2023 1:00 PM EDT Patient was seen today via Telehealth by agreement and consent in light of the current COVID-19 pandemic. I used the following Telehealth technology: Audio capability only. Total length of call 12 minutes. The patient was offered and advised video for a more comprehensive evaluation, but the patient declined or was unable to use video. Patient location: Home. This patient encounter is appropriateand reasonable under the circumstances given the patient's particular presentation at this time. The patient has been advised of the potential risks and limitations of this mode of treatment (including but not limited to the absence of in-person examination) and has agreed to be treated in a remote fashion in spite of them. Any and all of the patient's/patient's family's questions on this issue have been answered and I have made no promises or guarantees to the patient. The patient has also been advised to contact this office for worsening conditions or problems, and seek emergency medical edward atment and/or call 911 if the patient deems either necessary. The patient stated that they are currently in the [facility]. If the patient is a minor, permission has been obtained by the parent orguardian for the patient to receive medical care at this visit. Total time spent on visit includes but not limited to talking to patient, reviewing previous records, discussion with other specialists, documentation and coordination of care. 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 She presented this past winter with cough and had a CXR. She eventually hada CT chest and PET. Biopsy of ROSETTA was attempted with CT guidance which resulted in hemorrhage in December and was non-diagnostic at [place]. Subsequently seen in [place] and had repeat biopsy which demonstrated malignancy and referred to [facility] for possible surgical resection. A Repeat PET has been ordered. PFTs showed only mild obstruction with normal gas exchange. Treatment is complicated by multiple drug allergies including epinephrine. She was noted to have mild adenopathy and staging EBUS was requested by thoracic surgery. Patient presents today due to concerns regarding allergic reaction to possible anesthesia. She is very concerned about allergy to propofol. She also has never had any anesthesia except localin many year sas she has not had surgery. 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 She follows with Dr Blake, sql bi developer in [facility]. I advised her I will discuss her concerns with her sql bi developer and our anesthesia team and assess their input but I cannot do an EBUS without sedation. documented in this encounterSSouthwest General Health [id number] NoteThinikita RN attempted to reach patient regarding scheduling EBUS procedure. No answer. Left voice mail to return call at direct line.[facility] 04-04-2023 Telephone encounter Note* Telephone Encounter - Carlene Cox RN - 04/04/2023 10:05 AM EDT This RN attempted to reach patient regarding scheduling EBUS procedure. No answer. Left voice mail to return call at direct line. [facility] [id number] Telephone encounter Note* Telephone Encounter - Carlene Cox RN - 04/04/2023 10:00 AM EDT This RN met with patient in the office after her 03/31/[address] Reis to discuss EBUS scheduling and itinerary. Patient requests to call me in a few days to schedule procedure. 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 She presented this past winter with cough and had a CXR. She eventually had a CT chest and PET. Biopsy of ROSETTA was attempted with CT guidance which resulted in hemorrhage in December and was non-diagnostic at [place]. Subsequently seen in [place] and had repeat biopsy which demonstrated malignancy and referred to [facility] for possible surgical resection. A Repeat PET has been ordered. PFTs showed only mild obstruction with normal gas exchange. Treatment is complicated by multiple drug allergies including epinephrine. She was noted to have mild a denopathy and staging EBUS was requested by thoracic surgery. I personally reviewed interpreted herPET, CT chest, and PFTs today. I reviewed her outside it consultant records and thoracic surgery notes. Past Medical History: Past Medical History: Diagnosis Date Anxiety Bradycardia COPD (chronic obstructive pulmonary disease) (HCC) Depression Diabetes (HCC) Former smoker Hyperthyroidism Mitral valve prolapse MVP (mitral valve prolapse) Obesity Sleep apnea Social History: Social History Socioeconomic History Marital status: Tobacco Use Smoking status: Former Packs/day: 2.00 Years: 31.00 Pack years: 62.00 Types: Cigarettes Start date: 1963 Quit date: 10/10/1994 Years since quittin.4 Smokeless tobacco: Never Substance and Sexual Activity Alcohol use: Never Drug use: Never Family History: Family History Problem Relation Name Age of Onset Heart failure Mother Diabetes Mother Cancer Father Heart disease Father ROS: Review of Systems All other systems reviewed and are negative. Medications: Current Outpatient Medications Medication Sig Dispense Refill diphenhydrAMINE HCl (ALLERGY MED PO) Take by mouth. escitalopram (Lexapro) 20 MG tablet Take 20 mg by mouth in the morning. levothyroxine (Synthroid, Levoxyl) 50 MCG tablet Take 50 mcg by mouth daily. LORazepam (Ativan) 1 MG tablet Take 1 tablet by mouth daily. olopatadine (Pataday) 0.1 % ophthalmic solution 1 drop 2 times daily. No current facility-administered medications for this visit. Allergies: Allergies Allergen Reactions Aspirin Shortness of breath Other reaction(s): Shortness of breath Other reaction(s): Shortness of breath Epinephrine Unknown Prochlorperazine Anaphylaxis Cephalexin Other reaction(s): Unknown Other reaction(s): Unknown Other reaction(s): Unknown Cephalosporins Other reaction(s): Unknown Codeine Other reaction(s): Unknown, Unknown Other reaction(s): Unknown Other reaction(s): Unknown Diphenhydramine Hives Other reaction(s): Hives Other reaction(s): Hives Doxycycline Other reaction(s): Unknown Other reaction(s): Unknown Other reaction(s): Unknown Erythromycin Base Other reaction(s): Unknown Other reaction(s): Unknown Other reaction(s): Unknown Ibuprofen Other reaction(s): Unknown Other reaction(s): Unknown Other reaction(s): Unknown Iodinated Contrast Media Other reaction(s): Anaphylaxis Lidocaine Other reaction(s): Unknown Other reaction(s): Unknown Other reaction(s): Unknown Meperidine Other reaction(s): Unknown Other reaction(s): Unknown Other reaction(s): Unknown Morphine Other reaction(s): Unknown Penicillins Other reaction(s): Unknown, Unknown Other reaction(s): Unknown Other reaction(s): Unknown Acetaminophen Rash Other reaction(s): Rash Other reaction(s): Rash Nsaids Rash Physical Exam: BP Temp Pulse Resp SpO2 BP 128/82 (BP Location: Left arm, Patient Position: Sitting, BP Cuff Size: Adult) Pulse 56 Resp14 Ht 5' 5 (1.651 m) Wt 193 lb (87.5 kg) SpO2 97% Comment: RA BMI 32.12 kg/m Physical Exam Constitutional: General: She is not in acute distress. Appearance: She is not ill-appearing or toxic-appearing. HENT: Head: Normocephalic and atraumatic. Nose: Nose normal. No congestion or rhinorrhea. Mouth/Throat: Mouth: Mucous membranes are moist. Pharynx: Oropharynx is clear. No oropharyngeal exudate or posterior oropharyngeal erythema. Eyes: General: No scleral icterus. Conjunctiva/sclera: Conjunctivae normal. Cardiovascular: Rate and Rhythm: Normal rate and regular rhythm. Heart sounds: No murmur heard. No friction rub. No gallop. Pulmonary: Effort: Pulmonary effort is normal. No respiratory distress. Breath sounds: No stridor. No wheezing, rhonchi or rales. Abdominal: General: There is no distension. Palpations: Abdomen is soft. Musculoskeletal: General: No swelling, tenderness, deformity or signs of injury. Cervical back: No rigidity or tenderness. Lymphadenopathy: Cervical: No cervical adenopathy. Skin: General: Skin is warm and dry. Coloration: Skin is not jaundiced or pale. Findings: No bruising, erythema, lesion or rash. Neurological: General: No focal deficit present. Mental Status: She is alert and oriented to person, place, and time. Motor: No weakness. Psychiatric: Mood and Affect: Mood normal. Behavior: Behavior normal. Thought Content: Thought content normal. Assessment and Plan: 1. Malignant neoplasm of upper lobe of left lung (HCC) Agree with plans for staging and planned lobectomy if no distant or N2/3 disease. See below. Await PET for staging. 2. Mediastinal adenopathy Plan EBUS for mediastinal lymph node staging assuming there is no distant disease on PET. 3. Allergy to multiple drugs I do not anticipate issue with anesthesia or bronchoscopy procedure and reassured the patient regarding drugs administered for this procedure. 4. Pulmonary nodule Tiny RLL nodule will be watched with post treatment surveillance. 5. Chronic obstructive pulmonary disease, unspecified COPD type (HCC) Mild disease is not prohibitive of surgical resection. Follow-up: after bronchoscopy and prn documented in this [facility]06-22-2023 Instructions* Patient Instructions* Yen Vera MA - 03/31/2023 2:30 PM EDT YOUR APPOINTMENT TODAY WAS WITH THE [facility] LUNG NODULE CLINIC, COPD CLINIC, PULMONARY AND SLEEP MEDICINE OFFICE. PLEASE CALL OUR OFFICE AT [phone] IF YOU HAVE NOT RECEIVED YOUR TEST RESULTS 7 DAYS AFTER TESTING IS COMPLETED. PLEASE REMEMBER TO REQUEST REFILLS AT YOUR OFFICE VISITS. PHONE/FAX REQUESTS REQUIRE 48-72 HOURS FOR RESPONSE. A FRIENDLY REMINDER COPAYS ARE DUE AT TIME OF SERVICE. THANK YOU. Our Patients Are Important! We want to improve and you can help. After your visit we want you to feel: Listened to, Respected and have your health care explained. You may receive a survey asking you about your visit. Please complete the survey. We will use your feedback to make improvements. COVID-19 VACCINATION INFORMATION: PH. [phone] [email or web address] [facility] Central Scheduling [phone] [facility] Sleep Scheduling [phone] documented in this [facility]06-21-2023 NoteOncology Nurse Navigator met w/patient and friend at [facility] consultation. Patient was referred from [facility]. Nurse introduced self and role. Nurse provided resource guide and [employer] answers fact sheet. Nurse reviewed available resources, patient declines services at this time. Dr. Thomason recommends follow up w/pulmonary group for EBUS for lymph node sampling and repeat PET scan due to time elapsed since last scan. Nurse reviewed PET prep and provided written instructions w/sample menu. Nurse will assist as needed. Patient provided contact information for navigator, Dr. Thomason and Dr. Reis. Nurse encouraged patient to call w/questions or concerns. Encouragement and emotional support provide. Referrals appts: Pulmonary: Dr. Reis 03/31/23 PET [facility]: [facility]23[facility]06[facility] Telephone encounter Note* Telephone Encounter - Luz Marina Dias RCP - 03/30/2023 3:04 PM EDT Patient returned my call. She is available for pet imaging any day, any location, any time. Navigator sent message to Pat assistant office manager requesting expedited appointment. [facility] [id number] Miscellaneous Notes* Telephone Encounter - Luz Marina Dias RCP - 03/30/2023 3:04 PM EDT Patient returned my call. She is available for pet imaging any day, any location, any time. Navigator sent message to Pat assistant office manager requesting expedited appointment. * Telephone Encounter - Luz Marina Dias RCP - 03/30/2023 1:06 PM EDT Navigator received a message from cardiothoracic surgery office requesting assistance with expediting PET scan. Left voicemail for patient to please return my call to determine her availability and location preferences. documented in this encounterSSouthwest General Health [id number] History of Present illness Narrative* Blanca Alva RN - 03/30/2023 2:48 PM EDT Oncology Nurse Navigator met w/patient and friend at [facility] consultation. Patient was referred from [facility]. Nurse introduced self and role. Nurse provided resource guide and ASCO answers fact sheet. Nurse reviewed available resources, patient declines services at this time. Dr. Thomason recommendsfollow up w/pulmonary group for EBUS for lymph node sampling and repeat PET scan due to time elapsed since last scan. Nurse reviewed PET prep and provided written instructions w/sample menu. Nurse will assist as needed. Patient provided contact information for navigator, Dr. Thomason and Dr. Reis. Nurse encouraged patient to call w/questions or concerns. Encouragement and emotional support provide. Referrals appts: Pulmonary: Dr. Reis 03/31/23 PET scan: 04/04/23 documented in this [facility]06-21-2023 History of Present illness Narrative* Blanca Alva RN - 03/30/2023 2:48 PM EDT Oncology Nurse Navigator met w/patient and friend at [facility] consultation. Patient was referred from [facility]. Nurse introduced self and role. Nurse provided resource guide and ASCO answers fact sheet. Nurse reviewed available resources, patient declines services at this time. Dr. Thomason recommendsfollow up w/pulmonary group for EBUS for lymph node sampling and repeat PET scan due to time elapsed since last scan. Nurse reviewed PET prep and provided written instructions w/sample menu. Nurse will assist as needed. Patient provided contact information for navigator, Dr. Thomason and Dr. Reis. Nurse encouraged patient to call w/questions or concerns. Encouragement and emotional support provide. Referrals appts: Pulmonary: Dr. Reis 03/31/23 PET scan: 04/04/23 documented in this [facility]06-21-2023 NoteOrders Placed This Encounter Procedures PET/CT skull base to mid thigh Standing Status: Future Standing Expiration Date: 03/30/2024 Order Specific Question: Record Decision Support information? Answer: No Order Specific Question: Decision Support Exception Answer: Emergency Medical Condition (MA) [1] Order Specific Question: Is this the initial or subsequent exam for the patient's oncological treatment? Answer: Subsequent Order Specific Question: Does the patient have prostate cancer? Answer: No Order Specific Question: Is this a pylarify patient? Answer: No [facility] Pulmonary/Pulmonology Patient needs scheduled for EBUS Standing Status: Future Standing Expiration Date: 09/29/2023 Referral Priority: Urgent Referral Type: Consultation Referral Reason: Specialty Services Required Requested Specialty: Pulmonology Number of Visits Requested: [address] [place], [place] [id number] Telephone encounter Note* Telephone Encounter - Luz Marina Dias RCP - 03/30/2023 1:06 PM EDT Navigator received a message from cardiothoracic surgery office requesting assistance with expediting PET scan. Left voicemail for patient to please return my call to determine her availability and location preferences. [facility] [id number] History of Present illness Narrative* Gabby Thomason MD - 03/30/2023 11:00 AM EDT Images from the original note were not included. [facility] CARDIOVASCULAR & THORACIC SURGERY [address] [place] [id number] Dept: [phone] Dept Loc: [phone] Visit type: New Reason for Visit: Left upper lobe nodule Assessment and plan 78-year-old female with recently diagnosed left upper lobe non-small cell cancer. I have reviewed the images and my interpretation is a 2 cm fissural left upper lobe nodule. She does have borderline mediastinal adenopathy. Left upper lobe non-small cell cancer: Given that she already has a CT-guided biopsy of the left upper lobe nodule, prior to establishing treatment plan, she will need her mediastinal staged. As her nodule is on the left, there will be no access to the right except for mediastinoscopy for endobronchial ultrasound. I have referred her for an endobronchial ultrasound for mediastinal lymph node biopsies. Her previous PET was more than 2 months ago. Given the prolonged duration, this is now insufficient to completely stage her. I have ordered a repeat PET scan to be done prior to offering treatment. She understands. A anticipation, I discussed t this stage, diagnosis seems to be a stage I non- small cell lung cancer. If it remains so, we discussed treatment with lobectomy versus SBRT. She is leaning to was surgical resection. Final decision to delay after repeat PET scan endobronchial ultrasound biopsy results finalized. In anticipation, I discussed the risks and benefits of robotic left upper lobectomy with lymph node dissection. She has adequate PFTs to tolerate a lobectomy. The risks of the procedure/s include but are not limited to, bleeding, persistent air leak, infection, pneumonia, respiratory failure, prolonged Intensive Care Unit stay, multiorgan failure, renal failure, cerebrovascular accident, pulmonary embolism, deep venous thrombosis, cardiac failure or ische tiara or arrhythmia, and . She understands. Allergies: Prior to any intervention, will need discussion with anesthesiologist about allergies. Gabby Thomason MD Cardiothoracic Surgery History of Present Illness Jessica Ash is a 78 y.o. female referred by SY Larose for newly diagnosed non-small cellcarcinoma of ROSETTA. Per note, pt saw Cardiology with c/o SOB. CT chest was completed on 10/13/22 and demonstrated posterior left upper lobe consolidation which has a nodular central aspect. Pt then had follow up CT scan completed on 11/17/22 which showed stable left upper lobe consolidation with nodular central density. APET scan was ordered and completed on 01/21/23 which showed hypermetabolic left posterior upper lobelesion exhibiting max SUV 4.0 is concerning for/compatible with malignancy. Pt underwent CT guided biopsy on 12/22/22. Sampling showed pulmonary parenchyma with focal atypical alveolar lining cells. A repeat biopsy was recommended which the pt underwent on 03/16/23. Sampling of left upper lobe nodule showed non-small cell carcinoma, favor adenocarcinoma, consistent with lung primary. Pt is former smoker. Pt is here now for an evaluation. Past Medical History Past Medical History: Diagnosis Date Anxiety Bradycardia COPD (chronic obstructive pulmonary disease) (HCC) Depression Diabetes (HCC) Former smoker Hyperthyroidism Mitral valve prolapse MVP (mitral valve prolapse) Obesity Sleep apnea Past Surgical History Past Surgical History: Procedure Laterality Date APPENDECTOMY CHOLECYSTECTOMY HYSTERECTOMY Family History Family History Problem Relation Name Age of Onset Heart failure Mother Diabetes Mother Cancer Father Heart disease Father Social History Social History Tobacco Use Smoking status: Former Packs/day: 2.00 Years: 31.00 Pack years: 62.00 Types: Cigarettes Quit date: 10/10/1994 Years since quittin.4 Smokeless tobacco: Never Substance Use Topics Alcohol use: Never Drug use: Never Allergies Allergies Allergen Reactions Aspirin Shortness of breath Other reaction(s): Shortness of breath Other reaction(s): Shortness of breath Epinephrine Unknown Prochlorperazine Anaphylaxis Cephalexin Other reaction(s): Unknown Other reaction(s): Unknown Other reaction(s): Unknown Cephalosporins Other reaction(s): Unknown Codeine Other reaction(s): Unknown, Unknown Other reaction(s): Unknown Other reaction(s): Unknown Diphenhydramine Hives Other reaction(s): Hives Other reaction(s): Hives Doxycycline Other reaction(s): Unknown Other reaction(s): Unknown Other reaction(s): Unknown Erythromycin Base Other reaction(s): Unknown Other reaction(s): Unknown Other reaction(s): Unknown Ibuprofen Other reaction(s): Unknown Other reaction(s): Unknown Other reaction(s): Unknown Iodinated Contrast Media Other reaction(s): Anaphylaxis Lidocaine Other reaction(s): Unknown Other reaction(s): Unknown Other reaction(s): Unknown Meperidine Other reaction(s): Unknown Other reaction(s): Unknown Other reaction(s): Unknown Morphine Other reaction(s): Unknown Penicillins Other reaction(s): Unknown, Unknown Other reaction(s): Unknown Other reaction(s): Unknown Acetaminophen Rash Other reaction(s): Rash Other reaction(s): Rash Nsaids Rash Medications Current Outpatient Medications: escitalopram (Lexapro) 20 MG tablet, Take 20 mg by mouth in the morning., Disp: , Rfl: levothyroxine (Synthroid, Levoxyl) 50 MCG tablet, Take 50 mcg by mouth daily., Disp: , Rfl: LORazepam (Ativan) 1 MG tablet, Take 1 tablet by mouth daily., Disp: , Rfl: Review of Systems Review of Systems Constitutional: Positive for fatigue. HENT: Positive for trouble swallowing (solids, food gets stuck). Respiratory: Positive for chest tightness (pulling sensation) and shortness of breath (on exertion). Physical Exam Vitals: BP 103/56 (BP Location: Left arm, Patient Position: Sitting, BP Cuff Size: Large adult) Pulse (!)46 Temp 36.3 C (97.3 F) (Temporal) Ht 5' 5 (1.651 m) Wt 194 lb (88 kg) BMI 32.28 kg/m Constitutional: General: Not in acute distress. Appearance: Normal appearance. Not toxic-appearing. Ear, nose, mouth: Bilateral external ear and nose normal. Nose: Nose normal. Mouth: Appearance normal, no bleeding, moist mucus membranes Eyes: General: No scleral icterus. No discharge from bilateral eyes Extraocular Movements: Extraocular movements intact. Pupils equal and reactive bilaterally Cardiovascular: Heart: Regular rhythm. Normal heart sounds. Vascular: No carotid bruit. Edema: No edema in bilateral lower extremities Pulmonary: Effort: Pulmonary effort is normal. No respiratory distress. Breath sounds: Normal breath sounds. No wheezing. Chest wall: No tenderness. Abdominal: Appearance: Not distended Palpations: There is no abdominal tenderness, no guarding. Musculoskeletal: Bilateral upper and lower extremities: Normal range of motion, no deformity Head: Normocephalic and atraumatic. Neck: Normal range of motion and neck supple. No muscular tenderness. Lymphadenopathy: Cervical: No cervical adenopathy. Skin: General: Skin is warm and dry. Coloration: Skin is not jaundiced. Neurological: General: No focal deficit present. Cranial Nerves: No obvious cranial nerve deficit. Psychiatric: Mood and Affect: Mood normal. Thought Content: Thought content normal. Patient has good judgement and insight Mental Status: Alert and oriented to place, person, and time. Labs No results found for: WBC, HGB, PLT, NA, K, CREATININE Imaging Pathology 03/16/23 PET 01/21/23 IMPRESSION: Hypermetabolic left posterior upper lobe lesion exhibiting max SUV 4.0 is concerning for/compatible with malignancy. Nonspecific diffusely increased gastric and bowel activity, possibly physiologic, infectious or inflammatory. This could be further evaluated with colonoscopy and endoscopy if the patient has not already had this completed. Pathology 12/22/22 DIAGNOSIS: LEFT UPPER LOBE LUNG NODULE, NEEDLE CORE BIOPSY: - PULMONARY PARENCHYMA WITH FOCAL ATYPICAL ALVEOLAR LINING CELLS. THESE ARE SUSPICIOUS BUT NOT DIAGNOSTIC FOR ADENOCARCINOMA IN SITU. CONSIDER REPEAT BIOPSY WITH ACQUISITION OF ADDITIONAL TISSUE FOR DEFINITIVE DIAGNOSIS. CT Chest 11/17/22 IMPRESSION: Stable left upper lobe consolidation with nodular central density. Given the time frame between imaging and stability, this remains concerning for malignancy, and less likely infectious/inflammatory etiologies. A PET-CT and/or tissue sampling is recommended. CT Chest 10/13/22 IMPRESSION: Posterior left upper lobe consolidation which has a nodular central aspect. This could be infectious or inflammatory. A 6-8 week follow-up study is recommended to reassess. If the lesion persists, then CT PET or biopsy will be considerations to pursue underlying non inflammatory etiologies. PFT 10/13/22 FINDINGS: FVC normal at 93, FEV1 reduced at 78, FEV1/FVC ratio reduced at 63. Bronchodilator testing not performed. TLC normal at 86, RV reduced at 78, RV/TLC ratio is normal at 39. DLCO adjusted for alveolar volume is normal at 87. IMPRESSION: PFT demonstrates obstructive ventilatory defect with mild reduction in FEV1. Normal lung volume and DLCO. Patient Care Team: PCP: Corinne Panda DO Pulmonology: SY Larose Disclaimer INFORMED CONSENT:The nature and purpose of the proposed treatment or procedure have been discussed.The risks and benefits of the proposed treatment or procedures have been reviewed. Alternatives have been reviewed in addition to the risks and benefits of not receiving treatments or undergoing procedures. Pursuant to this discussion, the patient agrees to undergo the proposed treatment or procedure. Captured images seen in this note from are not a substitute for a comprehensive interpretation of the entire data set as reflected by the interpreting physician with regard to radiology, echocardiography, and other diagnostic images. This note may have been dictated using [employer] Edition 2.6 and/or [employer] Voice Recognition Feature. The document was proofread, however unrecognized voice recognition molder labels errors may be present. documented in this [facility]05-18-2023 Evaluation + Plan note Future Scheduled Tests Laboratory* Antinuclear Antibody Screen, Serum 02/24/23 * Thyroid Stimulating Hormone 02/24/23 * Rheumatoid Factor 02/24/23 * Complete Blood Count 02/24/23 [facility] 04-16-2023 NoteHNO ID: [id number] Author: Corinna Shea APRN.DRIVER RECRUITER Service: ? Author Type: Nurse Practitioner Type: Progress Notes Filed: 01/23/2023 10:31 AM Note Text: Subjective Pain (Shoulder Pain) Pertinent negatives include no chills, fever or rash. Jessica Ash is a 78 year old female who presents with pain her left wrist with swelling. This started last night with redness, swelling, and pain in her left wrist and near the base of her thumb. She put an NICOLAS wrap on it and it got better. This morning it is still slightly swollen and tender. She rates the pain 3 or 4 this morning. States The NICOLAS wrap helped so much. She has not taken any medication for this problem. Review of Systems Constitutional: Negative for chills and fever. Respiratory: Negative. Cardiovascular: Negative. Musculoskeletal: Positive for joint pain. Negative for falls. Skin: Negative for itching and rash. BP 120/66 Pulse (!) 52 Temp 36.4 ?C (97.5 ?F) Resp 16 Wt 87.1 kg (192 lb) SpO2 95% BMI 32.96 kg/m? PAST MEDICAL HISTORY Diagnosis Date COPD (chronic obstructive pulmonary disease) (HCC) IFG (impaired fasting glucose) Myalgia and myositis, unspecified 01/23/2007 Obesity, unspecified 01/23/2007 Palpitations 01/23/2007 Shortness of breath 01/23/2007 Unspecified hypothyroidism 01/23/2007 Unspecified sleep apnea 01/23/2007 PAST SURGICAL HISTORY Procedure Laterality Date CHOLECYSTECTOMY Cholecystectomy PAST SURGICAL HISTORY OF repair of fractured jaw TOTAL ABDOMINAL HYSTERECT W/WO RMVL TUBE OVARY Hysterectomy, BRIANA ALLERGIES Prochlorperazine, Acetaminophen, Albuterol, Alcohol, All Antibiotics [Other], All Pain Meds [Other], Aspirin, Betadine [Povidone-Iodine], Cephalexin, Codeine, Compazine [Prochlorperazine Edisylate], Ct Scan Dye [Other], Diphenhydramine, Doxycycline, Egg, Erythromycin Base, Hydromorphone, Ibuprofen, Ketorolac, Latex, Lidocaine, Meperidine, Milk, Morphine, Naproxen, Nsaids (Non-Steroidal Anti-Inflammatory Drug), Ondansetron, Penicillins, Soap, Sulfa (Sulfonamide Antibiotics), Vegetables [Other], and Wheat Starch MEDICATIONS blood sugar diagnostic (COINPLUSTOUCH ULTRA BLUE TEST STRIP [facility]) USE TO TEST BLOOD SUGAR DAILY DX E11.9 olopatadine (PATANOL) 0.1 % ophthalmic solution INSTILL 1 DROP INTO BOTH EYES TWICE DAILY NEEDED AT 6-8 HOUR INTERVALS. levothyroxine (SYNTHROID) 50 mcg tablet Take 50 mcg by mouth. Three tablet at breakfast escitalopram oxalate (LEXAPRO) 20 mg tablet Take 20 mg by mouth once daily. EPINEPHrine (EPIPEN) 0.3 mg/0.3 mL auto-injector as needed lorazepam (ATIVAN) 1 mg ORAL Tab Take 1 mg by mouth three times daily as needed. FAMILY HISTORY Problem Relation Age of Onset Diabetes Mother living at age 87. congestive failure, COPD Heart Father in his 70's, several MD's other (pancreatic cancer [Other]) Brother at age 58 Colon Cancer Son at age 20 Social History Tobacco Use Smoking status: Former Packs/day: 3.00 Years: 30.00 Pack years: 90.00 Types: Cigarettes Smokeless tobacco: Never Tobacco comments: quit 1994 Substance Use Topics Alcohol use: No Objective Physical Exam Vitals and nursing note reviewed. Constitutional: Appearance: Normal appearance. Cardiovascular: Rate and Rhythm: Normal rate and regular rhythm. Heart sounds: Normal heart sounds. Pulmonary: Effort: Pulmonary effort is normal. No respiratory distress. Breath sounds: Normal breath sounds. No wheezing or rales. Musculoskeletal: General: Swelling and tenderness present. No deformity or signs of injury. Left wrist: Swelling and tenderness present. No deformity, effusion, bony tenderness, snuff box tenderness or crepitus. Normal range of motion. Normal pulse. Skin: General: Skin is warm and dry. Findings: No bruising, erythema or rash. Neurological: Mental Status: She is alert. ASSESSMENT/PLAN: 1. Swelling of left wrist - ICD9: 719.03, ICD10: M25.432 - XR WRIST GENERAL 3V PA/LAT/OBL LEFT - return to tomorrow for xray (closed at time of exam) - NICOLAS wrap daily. Apply ice and elevate 2-3 times daily. - may take ibuprofen as needed. - Follow-up with your PCP in 3-5 days if symptoms have not improved or sooner if symptoms worsen - Discussed red flags and need for immediate medical evaluation if any occur. - Discussed supportive care treatment with fluids, rest and analgesia. - Discussed expected course of illness Corinna Shea APRN.[facility]03-15-2023 Hospital Discharge instructions Patient Education 12/22/2022 12:44:58 Radiology- CT Lung Biopsy 06/19/2020 (CUSTOM) [place] CT Lung Biopsy Discharge Instructions Interventional Radiology [facility] [address] [facility] [address] Today, you had a biopsy of your lung tissue. This procedure was done to help your doctor diagnose and treat the signs and symptoms you have been experiencing. These instructions should be followed after your procedure to reduce the chance of experiencing complications. Diet: Resume your normal diet as tolerated. Activity: Rest for the remainder of the day. You may resume your normal activity tomorrow. You may bathe/shower after 24 hours. Do not soak or submerge site (including swimming or hot tubs) until a scab forms. No heavy lifting, pushing, or straining. Dressing: Check the site for bleeding. Apply pressure to the site if bleeding excessively and call your physician. Change the band aid as needed; it can be removed after 24 hours. Keep the site dry at all times until a scab forms over the site. Pain Control: The puncture site may be sore for 1 to 2 days following the procedure. [id number] pain medication should be used for pain or discomfort. Please check with the physician who ordered this procedure for you for their specific recommendations. If your pain is not relieved or becomes more severe, notify the physician who sent you for this procedure. If you were sedated for this procedure: Avoid alcoholic beverages for 24 hours after your procedure. Do not drive or operate heavy machinery for 24 hours after your procedure. Do not make any legal decisions for 24 hours after your procedure. Medication: Please resume home medications today as scheduled. When to seek medical help: An increase in shortness of breath. Severe chest pain. Bloody sputum that get worse or last more than 24 hours. Lightheadedness, dizziness, or fainting. Infection: fever greater than 101 degrees, chills, redness, warmth, swelling, bleeding, or pus frompuncture site. If you experience any of these issues during the first 24 hours, please follow the instruction below: For the first 24 hours please call [phone] After 24 hours, contact the physician who ordered this procedure for you. Obtaining test results: Please make an appointment with your doctor to obtain your test results. They are usually availablewithin 4 to 7 business days. Do not assume everything is normal if you have not heard from your doctor or medical facility. It is important for you to follow up on all of your test results. Follow Up Care 12/14/2022 13:04:44 With:TIMI CONTRERAS MD Address: [address] [address] [place] [address] [phone] When: Unknown Comments:Follow-up as scheduled With:CORINNE PANDA DO [facility] [address] [facility] [place] [phone] When: Unknown With:Go to emergency room if symptoms worsen Address:Unknown When: Unknown [facility] 03-15-2023 Note* Candi Adan RN: SIGN, AUTHOR, PERFORM Event Display: CT Procedure Record Authored Date: [id number] CT Procedure Record Summary Primary Physician: Finalized Date/Time: 12/22/22 12:33:54 Pt. Name: JESSICA ASH Hernan /Sex: 1945 Female Med Rec #: [id number] Physician: Financial #: [id number] Pt. Type: O Room/Bed: / Admit/Disch: 12/22/22 07:56:00 - Institution: Allergies identified in patient's electronic medical record at time of printing on 12/22/22 Entry 1 Entry 2 Entry 3 Substance Betadine Codeine Sulfate Compazine Reaction Type Allergy Allergy Allergy Last Modified By: ZEN Guzman 11/29/14 Melissa Figueredo LPN, RN Lora 09/06/14 02:34:40 07/05/19 09:39:20 06:22:27 Entry 4 Entry 5 Entry 6 Substance Demerol HCl Dilaudid Eggs Reaction Type Allergy Allergy Allergy Last Modified By: ZEN Guzman 09/06/14 ZEN Guzman 09/06/14 ZEN Guzman 09/06/14 06:18:57 06:19:27 07:12:05 Entry 7 Entry 8 Entry 9 Substance NSAIDS Phenergan Toradol Reaction Type Allergy Allergy Allergy Last Modified By: ZEN Guzman 11/29/14 ZEN Guzman 11/29/14 ZEN Guzman 09/06/14 02:01:18 02:05:42 06:23:38 Entry 10 Entry 11 Entry 12 Substance Tylenol Zofran aspirin Reaction Type Allergy Allergy Allergy Last Modified By: ZEN Guzman 09/06/14 ZEN Guzman 11/29/14 ZEN Guzman 11/29/14 06:22:10 02:02:35 02:01:41 Entry 13 Entry 14 Entry 15 Substance chicken erythromycin ibuprofen Reaction Type Allergy Allergy Allergy Last Modified By: ZEN Guzman 09/06/14 Melissa Figueredo LPN, RN Lora 11/29/14 07:11:46 07/05/19 09:40:47 02:01:02 Entry 16 Entry 17 Entry 18 Substance isopropyl alcohol morphine penicillin topical Reaction Type Allergy Allergy Allergy Last Modified By: ZEN Guzman 11/29/14 ZEN Guzman 09/06/14 Melissa Figueredo LPN 02:34:24 06:23:26 07/05/19 09:40:11 Entry 19 Substance sulfa drugs Reaction Type Allergy Last Modified By: Melissa Figueredo LPN 07/05/19 09:40:28 Case Attendance- CT Entry 1 Entry 2 Entry 3 Case Attendee TRACEY MORALES MD, Hannah RN Norman, Mallory M Role Performed Assisting Surgeon Procedure Nurse Sanforizer Details Time In 12/22/22 09:49:00 12/22/22 09:15:00 12/22/22 09:15:00 Time Out 12/22/22 10:35:00 12/22/22 10:35:00 12/22/22 10:35:00 Procedure/Preference CT Biopsy Lung (SN) CT Biopsy Lung (SN) CT Biopsy Lung (SN) Card Last Modified By: Candi Adan RN, Hannah RN Hill, Hannah RN 12/22/22 10:48:40 12/22/22 10:48:40 12/22/22 10:48:40 Radiology Procedures- CT Entry 1 Procedure/Preference CT Biopsy Lung (SN) Actual Procedure CT BIOPSY LUNG Card Primary Procedure Yes Primary Surgeon TRACEY MORALES MD Anesthesia/Sedation Local Type Additional Procedure Times Start 12/22/22 09:49:00 Stop 12/22/22 10:05:00 Specialty Service SN Radiology Procedure EBL 1 mL Last Modified By: Candi Adan RN 12/22/22 10:48:38 Cultures and Specimens- CT Entry 1 Kind Specimen Type Nodule Last Modified By: Candi Adan RN 12/22/22 09:33:10 General Case Data- CT Entry 1 Case Information Room AH CT 2 Case Level None Wound Class None Specialty SN Radiology Procedure ASA Class None Diagnosis Preop Diagnosis nodule Postop Same As Preop Yes Postop Diagnosis nodule Last Modified By: Candi Adan RN 12/22/22 09:31:09 Procedure Case Times- CT Entry 1 Patient In Procedure Patient In OR 12/22/22 09:15:00 Patient Out of OR 12/22/22 10:35:00 Procedure Start/Stop Procedure Start Time 12/22/22 09:49:00 Procedure Stop Time 12/22/22 10:05:00 Last Modified By: Candi Adan RN 12/22/22 10:48:34 Immediate Post Procedure Note- CT Entry 1 Immediate Post Yes Procedure Note displayed for Physician to review Closure Technique Closure Technique Other than Primary Last Modified By: Candi Adan RN 12/22/22 09:30:47 Immediate Post Procedure Note- CT Signed By: TRACEY MORALES MD 12/22/22 11:13 Allergy Information- CT Entry 1 Allergies Reviewed? Yes Allergies Reviewed Medical Record With Last Modified By: Candi Adan RN 12/22/22 09:28:57 Radiology Protocols/Time Out- CT Entry 1 Preprocedure Clinician Verifies Correct patient ID When Clinically Confirmation of correct using name & date Indicated side(s) and site(s), or MRN, Accurate Correct diagnostic and procedure, complete radiology tests Informed Consent, H & P available update immediately prior to procedure, if applicable OR/Procedure Room/Bedside Time 12/22/22 09:49:00 Clinician Verifies Correct patient identity including EMR & records using name and date or medical record number, Accurate procedure consent form, Correct patient position, Necessary equipment is available, Anticipated non-routine events with surgical team (case duration, estimated blood loss, patient specific concerns)., Cage patient factors for recovery and management identified with surgical team. When Applicable Confirmation correct Team Members TRACEY MORALES MD, side and site marked, Present for Time Out Candi Adan RN, Relevant images and Divya Joseph results are properly labeled and appropriately displayed, Alcohol based prep dry, Double verification of sterility indicators complete Instrument Sterility Team Members Divya Joseph Verifying Sterility Procedure CT Biopsy Lung (SN) Last Modified By: Candi Adan RN 12/22/22 09:50:43 Skin Prep - CT Entry [address] Biopsy Lung (SN) Skin Prep Prep Area Chest Side Left By TRACEY MORALES MD Prep Agents Chloraprep Hair Removal Method N/A Last Modified By: Candi Adan RN 12/22/22 09:33:26 Patient Positioning - CT Entry [address] Biopsy Lung (SN) Body Position OP Supine Feet Uncrossed? Yes Pressure Points Yes Checked Last Modified By: Candi Adan RN 12/22/22 09:30:22 Radiology Procedure Plan - CT Entry 1 Radiology - Nursing Care Plan Outcome Statement The patient Outcome Statement The patient receives demonstrates knowledge Cont. appropriate of the expected medication(s), safely responses to the administered during the operative/invasive perioperative/invasive procedure., The period., The patient is patient's value system, free from signs and lifestyle, ethnicity, symptoms of injury and culture are caused by extraneous considered, respected, objects (equipment, and incorporated in the instrumentation, perioperative plan of sponges, or sharps). care., The patient is free from signs and symptoms of infection., The patient is free from signs and symptoms of injury related to positioning. Radiology - Action Plan Outcomes Met? Yes Mortar Man Candi dAan RN Completing Procedure Plan Last Modified By: Candi Adan RN 12/22/22 09:30:58 Radiology Lines and Procedures- CT Entry 1 Radiology Sedation Case Times Sedation Total Time 0 Radiology - Fluid/Drainage RAD - CT Guidewires, Cath... [place] Corvocet Biopsy System [id number] Radiology Urinary Catheter Radiology - CT Other Items Trays/Kits Custom Procedure Kit Radiology Contrast Contrast Used? No Radiology Procedure Site Site/Location left chest Site Condition No complications Dressing Type Gauze sponge 4 X 4, Technologist Notes 20mL polocaine used Transparent Last Modified By: Candi Adan RN 12/22/22 12:33:52 Case Comments <None> Finalized By: Candi Adan RN Document Signatures Signed By: Candi Adan RN 12/22/22 12:33 [facility] 03-15-2023 Summary of episode note Discharge Instructions Thank you for allowing [facility] to assist you with your healthcare needs. The following is importantdischarge information regarding your hospital visit. Your Care Team CORINNE PANDA DO What to do next Follow Up Appointments Follow Up with TIMI CONTRERAS MD When Why: Follow-up as scheduled Where: [address] [address] [place] [phone] Follow Up with CORINNE PANDA DO When Where: [address] [facility] [place] [address]- [phone] Follow Up with Go to emergency room if symptoms worsen When Allergies Betadine Codeine Sulfate (Unknown) Compazine Demerol HCl Dilaudid Eggs NSAIDS Phenergan Toradol Tylenol Zofran aspirin chicken erythromycin (Unknown) ibuprofen isopropyl alcohol topical morphine penicillin (Unknown) sulfa drugs (Unknown) Medications Please ask your primary doctor or pharmacist before taking any other medication not listed, including over the counter drugs, herbal medications, vitamins and or supplements as they may interact withyour home medications. What How Much When Instructions Last Dose Unchanged escitalopram (Lexapro 20 mg oral tablet) 1 tab(s) by mouth Daily at bedtime Unchanged levothyroxine (levothyroxine 150 mcg (0.15 mg) oral tablet) 1 tab(s) by mouth Once a day Unchanged LORazepam (LORazepam 1 mg oral tablet) 1 tab(s) by mouth Three (3) times a day as needed for for anxiety Unchanged Misc Medication (POLOCAINE-MPF) USE DIRECTED Please take this list to your next doctor s visit. Bring all medications you take, including over the counter medications, herbals and other supplements with you to your doctor s visit. Patients and families are reminded to discard old lists and to update any records with all medication providers or retail pharmacies. Education Materials [place] Lung Biopsy Discharge Instructions Interventional Radiology [facility] [address] [facility] [address] Today, you had a biopsy of your lung tissue. This procedure was done to help your doctor diagnose and treat the signs and symptoms you have been experiencing. These instructions should be followed after your procedure to reduce the chance of experiencing complications. Diet: Resume your normal diet as tolerated. Activity: Rest for the remainder of the day. You may resume your normal activity tomorrow. You may bathe/shower after 24 hours. Do not soak or submerge site (including swimming or hot tubs) until a scab forms. No heavy lifting, pushing, or straining. Dressing: Check the site for bleeding. Apply pressure to the site if bleeding excessively and call your physician. Change the band aid as needed; it can be removed after 24 hours. Keep the site dry at all times until a scab forms over the site. Pain Control: The puncture site may be sore for 1 to 2 days following the procedure. Anvt-dne-mitzswj pain medication should be used for pain or discomfort. Please check with the physician who ordered this procedure for you for their specific recommendations. If your pain is not relieved or becomes more severe, notify the physician who sent you for this procedure. If you were sedated for this procedure: Avoid alcoholic beverages for 24 hours after your procedure. Do not drive or operate heavy machinery for 24 hours after your procedure. Do not make any legal decisions for 24 hours after your procedure. Medication: Please resume home medications today as scheduled. When to seek medical help: An increase in shortness of breath. Severe chest pain. Bloody sputum that get worse or last more than 24 hours. Lightheadedness, dizziness, or fainting. Infection: fever greater than 101 degrees, chills, redness, warmth, swelling, bleeding, or pus frompuncture site. If you experience any of these issues during the first 24 hours, please follow the instruction below: For the first 24 hours please call [phone] After 24 hours, contact the physician who ordered this procedure for you. Obtaining test results: Please make an appointment with your doctor to obtain your test results. They are usually availablewithin 4 to 7 business days. Do not assume everything is normal if you have not heard from your doctor or medical facility. It is important for you to follow up on all of your test results. Additional Information VACCINATE! IT SAVES LIVES! Members of the community who have not yet received the COVID-19 vaccine and would like to receive it can visit one of [facility] vaccine clinics. There are many vaccine clinic locations within the [facility]. For locations and available times, please visit [email or web address].[place].gov/. It is important to note that some COVID mobile vaccine clinics are held outdoors and may be canceled in rainy or stormy conditions. To learn more about pediatric vaccinations (ages 5-11), we invite you to visit the [facility] webpage. https://www.[email or web address]/pages/[email or web address]-Cyzxwvqobkb-[email or web address] stions.htmlTo learn more about the COVID-19 vaccine, we invite you to visit the CDC website for a list of frequently asked questions. https://www.cdc.gov/coronavirus/2019-ncov/vaccines/faq.html [facility] Patient Portal Access Instructions: Stay connected with your healthcare team and access your personal medical information anytime with the [facility] Patient Portal.If you would like a full copy of your medical records, please contact the [facility] Medical Records Department, Tuesday through Tuesday between 8a.m. and 4:30p.m. Please follow the directions below to access the portal: 1.Access the email account you provided upon registration to the [facility].2.Look for an invitation email from [facility].3.Open the email and access the invitation link: Accept Invitation to [facility].Fill in the required donaldson to create your account. Sign into www.Pocits with your username and password that you created in the above steps to stay up to date. You can then view a summary of results, a summary of your visits, and the ability to download your summaries to your computer or send the information securely to a physician. Remember that your healthcare information is confidential, so carefully consider who you will allow to register on the [facility] Patient Portal for access to your information. You can also access the [facility] Patient Portal on the [facility]. Simply click on Health Records under [employer] and then click on the [employer] logo. HOW TO SAFELY DISPOSE OF PRESCRIPTION MEDICATIONS Please use one of the following methods to safely dispose of your unused medications. 1.Use a drug disposal kit: the drug disposal pouch allows you to safely discard your old and unuseddrugs. Ask your nurse to give you one when you are discharged.2.Visit a local take-back location: Many local pharmacies and police departments have programs that collect old and unwanted prescriptiondrugs. Call your local pharmacy or go to http://[employer].VideoClix/2B5Gb9m to find one close to you.3.Make use of household items: Use cat litter or old coffee grounds to dispose medications if other options arenot available. Mix your drugs with these household products, seal them in an airtight container andthrow it into the garbage. Call [facility]: [phone] to be sure your drugs can be disposed of in this way. Some medicines may require a different approach.4.Never flush your medications down the toilet. IF YOU HAVE BEEN PRESCRIBED AN OPIOID FOR PAIN If you have been prescribed an opioid (such as hydrocodone, oxycodone or morphine), it is critical to understand the possible side effects and risks of opioid pain medications. Even when taken as directed, opioids can have several side effects including: Tolerance, meaning you might need to take more of a medication for the same pain relief. Nausea, vomiting and/or constipation. Sleepiness, dizziness, dry mouth, confusion, depression or itching. Physical dependence, meaning you have withdrawal symptoms when a medication is stopped, can develop within a few days. KNOW YOUR RESPONSIBILITIES It is important to know exactly how much and how often to take the opioid pain medications you are prescribed. Never take opioids in higher amounts or more often than prescribed. Do not combine opioids with alcohol or other drugs that cause drowsiness, such as benzodiazepines, also known as benzos, including diazepam and alprazolam, muscle relaxants or sleep aids. Never sell or share prescription opioids. This is illegal. Store opioids in a secure place and out of reach of others (including children, family, friends and visitors). The last page of this document has been signed and retained as a CHART COPY. Signatures Patient Education Materials Radiology- CT Lung Biopsy 06/19/2020 (CUSTOM) Medication Leaflets My discharge plan and instructions have been reviewed and explained to me and IANNABELLA RAE A understand my current condition and have read and understand these discharge instructions. I have received awritten copy of the plan/instructions. If I have questions, I am aware that I should contact my doctor. Patient/Historic Sites Registrar Signature: Date/Time: Relationship to Patient: Witness Name/Signature: [id number] Procedure Record Summary Primary Physician: Finalized Date/Time: 12/22/22 12:33:54 Pt. Name: RA ANNABELLACarlita Ziegler/Sex: 1945 Female Med Rec #: [id number] Physician: Financial #: [id number] Pt. Type: O Room/Bed: / Admit/Disch: 12/22/22 07:56:00 - Institution: Allergies identified in patient's electronic medical record at time of printing on 12/22/22 Entry 1 Entry 2 Entry 3 Substance Betadine Codeine Sulfate Compazine Reaction Type Allergy Allergy Allergy Last Modified By: ZEN Guzman 11/29/14 Melissa Figueredo LPN, RN Lora 09/06/14 02:34:40 07/05/19 09:39:20 06:22:27 Entry 4 Entry 5 Entry 6 Substance Demerol HCl Dilaudid Eggs Reaction Type Allergy Allergy Allergy Last Modified By: ZEN Guzman 09/06/14 ZEN Guzman 09/06/14 ZEN Guzman 09/06/14 06:18:57 06:19:27 07:12:05 Entry 7 Entry 8 Entry 9 Substance NSAIDS Phenergan Toradol Reaction Type Allergy Allergy Allergy Last Modified By: ZEN Guzman 11/29/14 ZEN Guzman 11/29/14 ZEN Guzman 09/06/14 02:01:18 02:05:42 06:23:38 Entry 10 Entry 11 Entry 12 Substance Tylenol Zofran aspirin Reaction Type Allergy Allergy Allergy Last Modified By: ZEN Guzman 09/06/14 ZEN Guzman 11/29/14 ZEN Guzman 11/29/14 06:22:10 02:02:35 02:01:41 Entry 13 Entry 14 Entry 15 Substance chicken erythromycin ibuprofen Reaction Type Allergy Allergy Allergy Last Modified By: ZEN Guzman 09/06/14 Melissa Figueredo LPN, RN Lora 11/29/14 07:11:46 07/05/19 09:40:47 02:01:02 Entry 16 Entry 17 Entry 18 Substance isopropyl alcohol morphine penicillin topical Reaction Type Allergy Allergy Allergy Last Modified By: ZEN Guzman 11/29/14 ZEN Guzman 09/06/14 Melissa Figueredo LPN 02:34:24 06:23:26 07/05/19 09:40:11 Entry 19 Substance sulfa drugs Reaction Type Allergy Last Modified By: Melissa Figueredo LPN 07/05/19 09:40:28 Case Attendance- CT Entry 1 Entry 2 Entry 3 Case Attendee TRACEY MORALES MD, Hannah RN Norman, Mallory M Role Performed Assisting Surgeon Procedure Nurse Sanforizer Details Time In 12/22/22 09:49:00 12/22/22 09:15:00 12/22/22 09:15:00 Time Out 12/22/22 10:35:00 12/22/22 10:35:00 12/22/22 10:35:00 Procedure/Preference CT Biopsy Lung (SN) CT Biopsy Lung (SN) CT Biopsy Lung (SN) Card Last Modified By: Candi Adan RN, Hannah RN Hill, Hannah RN 12/22/22 10:48:40 12/22/22 10:48:40 12/22/22 10:48:40 Radiology Procedures- CT Entry 1 Procedure/Preference CT Biopsy Lung (SN) Actual Procedure CT BIOPSY LUNG Card Primary Procedure Yes Primary Surgeon TRACEY MORALES MD Anesthesia/Sedation Local Type Additional Procedure Times Start 12/22/22 09:49:00 Stop 12/22/22 10:05:00 Specialty Service SN Radiology Procedure EBL 1 mL Last Modified By: Candi Adan RN 12/22/22 10:48:38 Cultures and Specimens- CT Entry 1 Kind Specimen Type Nodule Last Modified By: Candi Adan RN 12/22/22 09:33:10 General Case Data- CT Entry [address] 2 Case Level None Wound Class None Specialty SN Radiology Procedure ASA Class None Diagnosis Preop Diagnosis nodule Postop Same As Preop Yes Postop Diagnosis nodule Last Modified By: Candi Adan RN 12/22/22 09:31:09 Procedure Case Times- CT Entry 1 Patient In Procedure Patient In OR 12/22/22 09:15:00 Patient Out of OR 12/22/22 10:35:00 Procedure Start/Stop Procedure Start Time 12/22/22 09:49:00 Procedure Stop Time 12/22/22 10:05:00 Last Modified By: Candi Adan RN 12/22/22 10:48:34 Immediate Post Procedure Note- CT Entry 1 Immediate Post Yes Procedure Note displayed for Physician to review Closure Technique Closure Technique Other than Primary Last Modified By: Candi Adan RN 12/22/22 09:30:47 Immediate Post Procedure Note- CT Signed By: TRACEY MORALES MD 12/22/22 11:13 Allergy Information- CT Entry 1 Allergies Reviewed? Yes Allergies Reviewed Medical Record With Last Modified By: Candi Adan RN 12/22/22 09:28:57 Radiology Protocols/Time Out- CT Entry 1 Preprocedure Clinician Verifies Correct patient ID When Clinically Confirmation of correct using name & date Indicated side(s) and site(s), or MRN, Accurate Correct diagnostic and procedure, complete radiology tests Informed Consent, H & P available update immediately prior to procedure, if applicable OR/Procedure Room/Bedside Time 12/22/22 09:49:00 Clinician Verifies Correct patient identity including EMR & records using name and date or medical record number, Accurate procedure consent form, Correct patient position, Necessary equipment is available, Anticipated non-routine events with surgical team (case duration, estimated blood loss, patient specific concerns)., Cage patient factors for recovery and management identified with surgical team. When Applicable Confirmation correct Team Members TRACEY MORALES MD, side and site marked, Present for Time Out Canid Adan RN, Relevant images and Divya Joseph results are properly labeled and appropriately displayed, Alcohol based prep dry, Double verification of sterility indicators complete Instrument Sterility Team Members Divya Joseph Verifying Sterility Procedure CT Biopsy Lung (SN) Last Modified By: Candi Adan RN 12/22/22 09:50:43 Skin Prep - CT Entry [address] Biopsy Lung (SN) Skin Prep Prep Area Chest Side Left By TRACEY MORALES MD Prep Agents Chloraprep Hair Removal Method N/A Last Modified By: Candi Adan RN 12/22/22 09:33:26 Patient Positioning - CT Entry [address] Biopsy Lung (SN) Body Position OP Supine Feet Uncrossed? Yes Pressure Points Yes Checked Last Modified By: Candi Adan RN 12/22/22 09:30:22 Radiology Procedure Plan - CT Entry 1 Radiology - Nursing Care Plan Outcome Statement The patient Outcome Statement The patient receives demonstrates knowledge Cont. appropriate of the expected medication(s), safely responses to the administered during the operative/invasive perioperative/invasive procedure., The period., The patient is patient's value system, free from signs and lifestyle, ethnicity, symptoms of injury and culture are caused by extraneous considered, respected, objects (equipment, and incorporated in the instrumentation, perioperative plan of sponges, or sharps). care., The patient is free from signs and symptoms of infection., The patient is free from signs and symptoms of injury related to positioning. Radiology - Action Plan Outcomes Met? Yes Mortar Man Candi Adan RN Completing Procedure Plan Last Modified By: Candi Adan RN 12/22/22 09:30:58 Radiology Lines and Procedures- CT Entry 1 Radiology Sedation Case Times Sedation Total Time 0 Radiology - Fluid/Drainage RAD - CT Guidewires, Cath... [place] Corvocet Biopsy System [id number] Radiology Urinary Catheter Radiology - CT Other Items Trays/Kits Custom Procedure Kit Radiology Contrast Contrast Used? No Radiology Procedure Site Site/Location left chest Site Condition No complications Dressing Type Gauze sponge 4 X 4, Technologist Notes 20mL polocaine used Transparent Last Modified By: Candi Adan RN 12/22/22 12:33:52 Case Comments Finalized By: Candi Adan RN Document Signatures Signed By: Candi Adan RN 12/22/22 12:33 [id number] Note ORIGINAL HISTORY: Lung biopsy COMPARISON: 18 Feb 2022 FINDINGS: There is hazy airspace opacification in the left upper lung. There is no significant pneumothorax. The pulmonary vasculature is unremarkable in appearance. IMPRESSION: New left upper lobe consolidation. Interpreted by: Tracey Conde MD Preliminary Report By: Tracey Conde MD Electronically signed By Tracey Conde MD Dictated Date: 12/22/2022 12:30:55 PM Prelim Date: 12/22/2022 12:31:34 PM Sign Date: 12/22/2022 12:31:34 PM Ordering Provider: [facility]03-15-2023 Note ORIGINAL HISTORY: Lung biopsy COMPARISON: 18 Feb 2022 FINDINGS: There is hazy airspace opacification in the left upper lung. There is no significant pneumothorax. The pulmonary vasculature is unremarkable in appearance. IMPRESSION: New left upper lobe consolidation. Interpreted by: Tracey Conde MD Preliminary Report By: Tracey Conde MD Electronically signed By Tracey Conde MD Dictated Date: 12/22/2022 12:30:55 PM Prelim Date: 12/22/2022 12:31:34 PM Sign Date: 12/22/2022 12:31:34 PM Ordering Provider: [facility]02-27-2023 Telephone encounter Note* Telephone Encounter - Raven Leon - 12/06/2022 7:59 AM EST Sleep study results and chart notes were re[facility]faxed. [id number] Miscellaneous Notes* Telephone Encounter - Raven Leon - 12/06/2022 7:59 AM EST Sleep study results and chart notes were re-faxed. * Telephone Encounter - Kaela Del Rio - 12/03/2022 4:50 PM EST Name of caller: Ericka Contact phone number: [phone] Relationship to Patient: [facility] sleep dentistry Provider: Dr Marie Practice: Neuro Chief Complaint/Reason for Call: Ericka states the diagnostic sleep study is blurred and also needsthe chart notes prior to the sleep study. Please Fax to [phone] and e-mail to [email or web address] Best time of day caller can be reached: Any Patient advised that office/PCP has 24-48 business hours to return their call: Yes documented in this [facility]02-24-2023 Telephone encounter Note* Telephone Encounter - Kaela Del Rio - 12/03/2022 4:50 PM EST Name of caller: Ericka Contact phone number: [phone] Relationship to Patient: bhutanese sleep dentistry Provider: Dr Marie Practice: Neuro Chief Complaint/Reason for Call: Ericka states the diagnostic sleep study is blurred and also needsthe chart notes prior to the sleep study. Please Fax to [phone] and e-mail to [email or web address] Best time of day caller can be reached: Any Patient advised that office/PCP has 24-48 business hours to return their call: Yes [facility]zyukp19-28-0416 Telephone encounter Note* Telephone Encounter - Raven Leon - 11/26/2022 12:03 PM EST Notes and sleep study faxed. [id number] Miscellaneous Notes* Telephone Encounter - Raven Leon - 11/26/2022 12:03 PM EST Notes and sleep study faxed. * Telephone Encounter - Yasmin Sharma - 11/25/2022 4:28 PM EST Name of caller: Erlin Contact phone number: [phone] Relationship to Patient: Medical Equipment Provider: Dr. Marie Practice: Neurology Chief Complaint/Reason for Call: Erlin states they contacted the office on the 11/18/22 in regards of the patients sleep study and pre-chart notes prior to the sleep study. They are still in need of themand a note on why the patient cannot tolerate the CPAP machine. Erlin stated their fax number is [phone]. Please advise Best time of day caller can be reached: any Patient advised that office/PCP has 24-48 business hours to return their call: No [facility] CenterZundiv31-95-3327 Telephone encounter Note* Telephone Encounter - Yasmin Sharma - 11/25/2022 4:28 PM EST Name of caller: Erlin Contact phone number: [phone] Relationship to Patient: Medical Equipment Provider: Dr. Marie Practice: Neurology Chief Complaint/Reason for Call: Erlin states they contacted the office on the 11/18/22 in regards of the patients sleep study and pre-chart notes prior to the sleep study. They are still in need of themand a note on why the patient cannot tolerate the CPAP machine. Erlin stated their fax number is [phone]. Please advise Best time of day caller can be reached: any Patient advised that office/PCP has 24-48 business hours to return their call: No [facility] [id number] Telephone encounter Note* Telephone Encounter - Raven Leon - 10/29/2022 8:54 AM EST Pt notified. Pt would like order [facility] [id number] Miscellaneous Notes* Telephone Encounter - Raven Leon - 10/29/2022 8:54 AM EST Pt notified. Pt would like order sent to [facility] in [place] * Addendum Note - Tracey Marie MD - 10/28/2022 4:37 PM ESTAddended by: TRACEY MARIE on: 10/28/2022 04:37 PM Modules accepted: Orders * Telephone Encounter - Tracey Marie MD - 10/28/2022 4:33 PM EST Call her. I made an order for her to get home oxygen for overnight. Where does she want the order sent? [facility] in [place]? [facility] in [place]? Remind her that the oxygen does not reduce the danger of stroke or heart failure from the sleep apnea, so she still needs to see Dr. Patel about the sleep apnea. * Telephone Encounter - Raven Leon - 10/28/2022 9:02 AM EST Left a message for the pt to call the office. Please give pt information listed below. Pt is to call and schedule a appt with Dr. Patel at [phone]. Dr. Patel's office has bee notified that the referral is urgent. * Telephone Encounter - Raven Leon - 10/27/2022 3:57 PM EST Pulse Oximetry report scanned into media. * Telephone Encounter - Raven Leon - 10/27/2022 3:50 PM EST The message was given to Cardiology staff to relay to MARQUITA Escobedo. A message was left for office to call back. * Telephone Encounter - Tracey Marie MD - 10/27/2022 3:31 PM EST Contact Marylu Greenfield in cardiology at [facility] and ask for copies of the pulse oximetry. Let her or her office know that I do not mind them starting oxygen if they feel that they need to. Billing Inquiries: [phone] Ask the patient to see Dr. Patel in [place] about the Inspire device to treat her sleep apnea. I will put the order in the chart. [facility] does not allow me to put the consult order as urgent, can you call his office and ask for it to be urgent? * Telephone Encounter - Social Security Benefits Interviewer Fay Reyes - 10/27/2022 11:37 AM EST Name of caller: Jessica Kenia Contact phone number: [phone] Relationship to Patient: patient Provider: DR. Marie Practice: Neurology Chief Complaint/Reason for Call: Jessica Aquino states that she went to her scales inspector d/t sob. The scales inspector ran tests did pft and ox level overnight. Jessica Kenia states that her ox dropped 405 times in one night and was as low as 80%. Jessica Aquino says that she needs Oxygen, but they dont think that she will be able to get oxygen without seeing Dr Marie first. Jessica Aquino states that she hasnt been able to weart the machine for a long time. [facility]. Best time of day caller can be reached: any Patient advised that office/PCP has 24-48 business hours to return their call: Yes documented in this [place] [address]-19-2023 Note* Addendum Note - Tracey Marie MD - 10/28/2022 4:37 PM ESTAddended by: TRACEY MARIE on: 10/28/2022 04:37 PM Modules accepted: Orders [facility] [employer] Work Phone: 1(807) 359-994401-19-2023 Note* Addendum Note - Tracey Marie MD - 10/28/2022 4:37 PM ESTAddended by: TRACEY MARIE on: 10/28/2022 04:37 PM Modules accepted: Orders [facility] Phone: [phone]) 448-923101-19-2023 Note* Addendum Note - Tracey Marie MD - 10/28/2022 4:37 PM ESTAddended by: TRACEY MARIE on: 10/28/2022 04:37 PM Modules accepted: Orders [facility] Phone: 1(759) 817-137001-19-2023 Note* Addendum Note - Tracey Marie MD - 10/28/2022 4:37 PM ESTAddended by: TRACEY MARIE on: 10/28/2022 04:37 PM Modules accepted: Orders [facility] Phone: [phone]) 576-399201-19-2023 Miscellaneous Notes* Addendum Note - Tracey Marie MD - 10/28/2022 4:37 PM ESTAddended by: TRACEY MARIE on: 10/28/2022 04:37 PM Modules accepted: Orders * Telephone Encounter - Tracey Marie MD - 10/28/2022 4:33 PM EST Call her. I made an order for her to get home oxygen for overnight. Where does she want the order sent? [facility] in [place]? [facility] in [place]? Remind her that the oxygen does not reduce the danger of stroke or heart failure from the sleep apnea, so she still needs to see Dr. Patel about the sleep apnea. * Telephone Encounter - Raven Edward - 10/28/2022 9:02 AM EST Left a message for the pt to call the office. Please give pt information listed below. Pt is to call and schedule a appt with Dr. Patel at [phone]. Dr. Patel's office has bee notified that the referral is urgent. * Telephone Encounter - Raven Leon - 10/27/2022 3:57 PM EST Pulse Oximetry report scanned into media. * Telephone Encounter - Raven Leon - 10/27/2022 3:50 PM EST The message was given to Cardiology staff to relay to [employer] Marylu Escobedo. A message was left for office to call back. * Telephone Encounter - Tracey Marie MD - 10/27/2022 3:31 PM EST Contact Marylu Greenfield in cardiology at [facility] and ask for copies of the pulse oximetry. Let her or her office know that I do not mind them starting oxygen if they feel that they need to. Billing Inquiries: [phone] Ask the patient to see Dr. Patel in [place] about the Inspire device to treat her sleep apnea. I will put the order in the chart. [facility] does not allow me to put the consult order as urgent, can you call his office and ask for it to be urgent? * Telephone Encounter - Vikki Reyes - 10/27/2022 11:37 AM EST Name of caller: Jessica Aquino Contact phone number: [phone] Relationship to Patient: patient Provider: DR. Marie Practice: Neurology Chief Complaint/Reason for Call: Jessica Aquino states that she went to her scales inspector d/t sob. The scales inspector ran tests did pft and ox level overnight. Jessica Aquino states that her ox dropped 405 times in one night and was as low as 80%. Jessica Aquino says that she needs Oxygen, but they dont think that she will be able to get oxygen without seeing Dr Marie first. Jessica Aquino states that she hasnt been able to weart the machine for a long time. Jessica Aquino scheduled the first available appt with Dr. Marie, which isMar. Please contact Jessica Aquino. Best time of day caller can be reached: any Patient advised that office/PCP has 24-48 business hours to return their call: Yes documented in this [facility]01-19-2023 Telephone encounter Note* Telephone Encounter - Tracey Marie MD - 10/28/2022 4:33 PM EST Call her. I made an order for her to get home oxygen for overnight. Where does she want the order sent? [facility] in [place]? [facility] in [place]? Remind her that the oxygen does not reduce the danger of stroke or heart failure from the sleep apnea, so she still needs to see Dr. Patel about the sleep apnea. [id number] Telephone encounter Note* Telephone Encounter - Raven Leon - 10/28/2022 9:02 AM EST Left a message for the pt to call the office. Please give pt information listed below. Pt is to call and schedule a appt with Dr. Patel at [phone]. Dr. Patel's office has bee notified that the referral is urgent. [id number] Telephone encounter Note* Telephone Encounter - Raven Leon - 10/27/2022 3:57 PM EST Pulse Oximetry report scanned into media. [facility] [id number] Miscellaneous Notes* Telephone Encounter - Raven Edward - 10/27/2022 3:57 PM EST Pulse Oximetry report scanned into media. * Telephone Encounter - Raven Edward - 10/27/2022 3:50 PM EST The message was given to Cardiology staff to relay to COTTON EXPERT Marylu Escobedo. A message was left for office to call back. * Telephone Encounter - Tracey Marie MD - 10/27/2022 3:31 PM EST Contact Marylu Greenfield in cardiology at [facility] and ask for copies of the pulse oximetry. Let her or her office know that I do not mind them starting oxygen if they feel that they need to. Billing Inquiries: [phone] Ask the patient to see Dr. Patel in [place] about the Inspire device to treat her sleep apnea. I will put the order in the chart. [facility] does not allow me to put the consult order as urgent, can you call his office and ask for it to be urgent? * Telephone Encounter - Social Security Benefits Interviewer L Amy - 10/27/2022 11:37 AM EST Name of caller: Jessica Aquino Contact phone number: [phone] Relationship to Patient: patient Provider: DR. Marie Practice: Neurology Chief Complaint/Reason for Call: Jessica Aquino states that she went to her scales inspector d/t sob. The scales inspector ran tests did pft and ox level overnight. Jessica Aquino states that her ox dropped 405 times in one night and was as low as 80%. Jessica Aquino says that she needs Oxygen, but they dont think that she will be able to get oxygen without seeing Dr Marie first. Jessica Aquino states that she hasnt been able to weart the machine for a long time. Jessica [facility] Please contact [facility]ino. Best time of day caller can be reached: any Patient advised that office/PCP has 24-48 business hours to return their call: Yes documented in this [facility]01-18-2023 Telephone encounter Note* Telephone Encounter - Raven Leon - 10/27/2022 3:50 PM EST The message was given to Cardiology staff to relay to COTTON EXPERT Marylu Escobedo. A message was left for office to call back. [facility] [id number] Telephone encounter Note* Telephone Encounter - Tracey Marie MD - 10/27/2022 3:31 PM EST Contact Marylu Greenfield in cardiology at [facility] and ask for copies of the pulse oximetry. Let her or her office know that I do not mind them starting oxygen if they feel that they need to. Billing Inquiries: [phone] Ask the patient to see Dr. Patel in [place] about the Inspire device to treat her sleep apnea. I will put the order in the chart. [facility] does not allow me to put the consult order as urgent, can you call his office and ask for it to be urgent? [facility] Phone: [phone] Telephone encounter Note* Telephone Encounter - Vikki Reyes - 10/27/2022 11:37 AM EST Name of caller: Jessica Aquino Contact phone number: [phone] Relationship to Patient: patient Provider: DR. Marie Practice: Neurology Chief Complaint/Reason for Call: Jessica Aquino states that she went to her scales inspector d/t sob. The scales inspector ran tests did pft and ox level overnight. Jessica Aquino states that her ox dropped 405 times in one night and was as low as 80%. Jessica Aquino says that she needs Oxygen, but they dont think that she will be able to get oxygen without seeing Dr Marie first. Jessica Aquino states that she hasnt been able to weart the machine for a long time. Jessica Aquino scheduled the first available appt with Dr. Marie, which isMar. Please contact Jessica Aquino. Best time of day caller can be reached: any Patient advised that office/PCP has 24-48 business hours to return their call: Yes [facility] [id number] NoteHNO ID: [id number] Author: Era Small PA-C Service: ? Author Type: Physician Teaching Dietitian Type: Progress Notes Filed: 10/18/2022 9:37 AM Note Text: SPINE SURGERY OUTPATIENT CONSULT This is a virtual visit using Carlypso video visit. It required patient-provider interaction for the medical decision making as documented below. SERVICE DATE: 10/18/2022 PCP: Joe Smith MD REFERRING PROVIDER: Dorothy Castro [address] [place] [id number] Consult requested for an opinion regarding the evaluation and treatment of mid back pain. My final impression and recommendations will be communicated back to the requesting physician by way of the shared medical record or letter via [place] mail. SUBJECTIVE Jessica Ash is a 77 year old female presenting alone. CHIEF COMPLAINT: mid back pain HISTORY OF PRESENT ILLNESS PRECIPITATING EVENT: None DURATION OF SYMPTOMS: Greater Than 6 Months Seen virtually regarding chronic mid back pain. Pain has been present for over a year but has been more frequent and more severe over the last 3 months. Describes pain that comes and goes. Some days are normal and some are severe. Pain described as being between the scapula. Described as a sharp pain. No radiation into the ribs or arms. No numbness. Intermittent pain in the legs but this is not her main concern. Hx of osteoporosis and compression fracture. No recent workup or imaging. She cannot tolerate most medications. She's been doing PT without any relief. PREVIOUS CONSERVATIVE TREATMENTS: TENS Unit PT: 2021 Cannot tolerate medications PREVIOUS SPINAL SURGERY: None ACTIVE PROBLEM LIST Palpitations Unspecified Hypothyroidism Shortness of Breath Obesity, Unspecified Unspecified sleep apnea Myalgia and Myositis, Unspecified Multiple Allergies Chronic Bilateral Thoracic Back Pain Covid-19 Acute Gastritis Chest Pain Chronic Obstructive Lung Disease (Hcc) Contusion of Knee Diabetes Mellitus (Hcc) Generalized Anxiety Disorder Hypomagnesemia Injury of Low Back Mass of Head Mitral Valve Prolapse Pre-Syncope Vertigo PAST MEDICAL HISTORY Diagnosis Date COPD (chronic obstructive pulmonary disease) (HCC) IFG (impaired fasting glucose) Myalgia and myositis, unspecified 01/23/2007 Obesity, unspecified 01/23/2007 Palpitations 01/23/2007 Shortness of breath 01/23/2007 Unspecified hypothyroidism 01/23/2007 Unspecified sleep apnea 01/23/2007 PAST SURGICAL HISTORY Procedure Laterality Date CHOLECYSTECTOMY Cholecystectomy PAST SURGICAL HISTORY OF repair of fractured jaw TOTAL ABDOMINAL HYSTERECT W/WO RMVL TUBE OVARY Hysterectomy, BRIANA FAMILY HISTORY Problem Relation Age of Onset Diabetes Mother living at age 87. congestive failure, COPD Heart Father in his 70's, several MD's other (pancreatic cancer [Other]) Brother at age 58 Colon Cancer Son at age 20 Social History Tobacco Use Smoking status: Former Packs/day: 3.00 Years: 30.00 Pack years: 90.00 Types: Cigarettes Smokeless tobacco: Never Tobacco comments: quit 1994 Substance Use Topics Alcohol use: No ALLERGIES Allergen Reactions Prochlorperazine Anaphylaxis Acetaminophen Rash Other reaction(s): Rash Albuterol Other: See Comments heart racing. BP flucuating Alcohol All Antibiotics [Ot* All Pain Meds [Othe* Aspirin Shortness of Breath Other reaction(s): Shortness of breath Betadine [Povidone-* Cephalexin Unknown Other reaction(s): Unknown Codeine Unknown Other reaction(s): Unknown Compazine [Prochlor* Anaphylaxis Ct Scan Dye [Other] Diphenhydramine Hives Other reaction(s): Hives Doxycycline Unknown Other reaction(s): Unknown Egg Unknown Erythromycin Base Unknown Other reaction(s): Unknown Hydromorphone Unknown Ibuprofen Unknown Other reaction(s): Unknown Ketorolac Unknown Latex Lidocaine Unknown Other reaction(s): Unknown Meperidine Unknown Other reaction(s): Unknown Milk Morphine Unknown Naproxen Unknown Nsaids (Non-Steroid* Anaphylaxis Ondansetron Unknown Penicillins Unknown Other reaction(s): Unknown Soap Sulfa (Sulfonamide * Unknown Vegetables [Other] Wheat Starch MEDICATIONS: blood sugar diagnostic (ONETOUCH ULTRA BLUE TEST STRIP [facility]) USE TO TEST BLOOD SUGAR DAILY DX E11.9 olopatadine (PATANOL) 0.1 % ophthalmic solution INSTILL 1 DROP INTO BOTH EYES TWICE DAILY NEEDED AT 6-8 HOUR INTERVALS. levothyroxine (SYNTHROID) 50 mcg tablet Take 50 mcg by mouth. Three tablet at breakfast escitalopram oxalate (LEXAPRO) 20 mg tablet Take 20 mg by mouth once daily. EPINEPHrine (EPIPEN) 0.3 mg/0.3 mL auto-injector as needed lorazepam (ATIVAN) 1 mg ORAL Tab Take 1 mg by mouth three times daily as needed. REVIEW OF SYSTEMS: GENERAL: No weight loss or malaise MUSCULOSKELETAL: see HPI NEURO: No history of headaches, syncope, paralysis, seizures or tremors Patient Entered Questionnai (more content not included)...[facility]01-09-2023 History of Present illness Narrative* rEa Small PA-C - 10/18/2022 9:18 AM EST SPINE SURGERY OUTPATIENT CONSULT This is a virtual visit using Carlypso video visit. It required patient-provider interaction for themedical decision making as documented below. SERVICE DATE: 10/18/2022 PCP: Joe Smith MD REFERRING PROVIDER: Dorothy Castro [address] [facility] [address] Consult requested for an opinion regarding the evaluation and treatment of mid back pain. My final impression and recommendations will be communicated back to the requesting physician by way of the shared medical record or letter via [place] mail. SUBJECTIVE Jessica Ash is a 77 year old female presenting alone. CHIEF COMPLAINT: mid back pain HISTORY OF PRESENT ILLNESS PRECIPITATING EVENT: None DURATION OF SYMPTOMS: Greater Than 6 Months Seen virtually regarding chronic mid back pain. Pain has been present for over a year but has been more frequent and more severe over the last 3 months. Describes pain that comes and goes. Some days are normal and some are severe. Pain described as being between the scapula. Described as a sharp pain. No radiation into the ribs or arms. No numbness. Intermittent pain in the legs but this is not her main concern. Hx of osteoporosis and compression fracture. No recent workup or imaging. She cannot tolerate most medications. She's been doing PT without any relief. PREVIOUS CONSERVATIVE TREATMENTS: TENS Unit PT: 2021 Cannot tolerate medications PREVIOUS SPINAL SURGERY: None ACTIVE PROBLEM LIST Palpitations Unspecified Hypothyroidism Shortness of Breath Obesity, Unspecified Unspecified sleep apnea Myalgia and Myositis, Unspecified Multiple Allergies Chronic Bilateral Thoracic Back Pain Covid-19 Acute Gastritis Chest Pain Chronic Obstructive Lung Disease (Hcc) Contusion of Knee Diabetes Mellitus (Hcc) Generalized Anxiety Disorder Hypomagnesemia Injury of Low Back Mass of Head Mitral Valve Prolapse Pre-Syncope Vertigo PAST MEDICAL HISTORY Diagnosis Date COPD (chronic obstructive pulmonary disease) (HCC) IFG (impaired fasting glucose) Myalgia and myositis, unspecified 01/23/2007 Obesity, unspecified 01/23/2007 Palpitations 01/23/2007 Shortness of breath 01/23/2007 Unspecified hypothyroidism 01/23/2007 Unspecified sleep apnea 01/23/2007 PAST SURGICAL HISTORY Procedure Laterality Date CHOLECYSTECTOMY Cholecystectomy PAST SURGICAL HISTORY OF repair of fractured jaw TOTAL ABDOMINAL HYSTERECT W/WO RMVL TUBE OVARY Hysterectomy, BRIANA FAMILY HISTORY Problem Relation Age of Onset Diabetes Mother living at age 87. congestive failure, COPD Heart Father in his 70's, several MD's other (pancreatic cancer [Other]) Brother at age 58 Colon Cancer Son at age 20 Social History Tobacco Use Smoking status: Former Packs/day: 3.00 Years: 30.00 Pack years: 90.00 Types: Cigarettes Smokeless tobacco: Never Tobacco comments: quit 1994 Substance Use Topics Alcohol use: No ALLERGIES Allergen Reactions Prochlorperazine Anaphylaxis Acetaminophen Rash Other reaction(s): Rash Albuterol Other: See Comments heart racing. BP flucuating Alcohol All Antibiotics [Ot* All Pain Meds [Othe* Aspirin Shortness of Breath Other reaction(s): Shortness of breath Betadine [Povidone-* Cephalexin Unknown Other reaction(s): Unknown Codeine Unknown Other reaction(s): Unknown Compazine [Prochlor* Anaphylaxis Ct Scan Dye [Other] Diphenhydramine Hives Other reaction(s): Hives Doxycycline Unknown Other reaction(s): Unknown Egg Unknown Erythromycin Base Unknown Other reaction(s): Unknown Hydromorphone Unknown Ibuprofen Unknown Other reaction(s): Unknown Ketorolac Unknown Latex Lidocaine Unknown Other reaction(s): Unknown Meperidine Unknown Other reaction(s): Unknown Milk Morphine Unknown Naproxen Unknown Nsaids (Non-Steroid* Anaphylaxis Ondansetron Unknown Penicillins Unknown Other reaction(s): Unknown Soap Sulfa (Sulfonamide * Unknown Vegetables [Other] Wheat Starch MEDICATIONS: blood sugar diagnostic (OLSETUCH ULTRA BLUE TEST STRIP [facility]) USE TO TEST BLOOD SUGAR DAILY DX E11.9 olopatadine (PATANOL) 0.1 % ophthalmic solution INSTILL 1 DROP INTO BOTH EYES TWICE DAILY NEEDEDAT 6-8 HOUR INTERVALS. levothyroxine (SYNTHROID) 50 mcg tablet Take 50 mcg by mouth. Three tablet at breakfast escitalopram oxalate (LEXAPRO) 20 mg tablet Take 20 mg by mouth once daily. EPINEPHrine (EPIPEN) 0.3 mg/0.3 mL auto-injector as needed lorazepam (ATIVAN) 1 mg ORAL Tab Take 1 mg by mouth three times daily as needed. REVIEW OF SYSTEMS: GENERAL: No weight loss or malaise MUSCULOSKELETAL: see HPI NEURO: No history of headaches, syncope, paralysis, seizures or tremors Patient Entered Questionnaires Spine Questions 10/17/2022 Pain Location: Upper back/torso Pain Duration: 1 to 5 years Pain over last 6 months: Every day or nearly every day in the past 6 months Symptoms from neck/cervical spine: Yes Employment Status: Retired Involved in law suit/legal claim: No Spine Red Flags 10/17/2022 Any type of cancer: No Unexplained fever: No Bowel or bladder disfunction: No Unintentional weight loss: No Osteoporosis: Yes Neck Questionnaires 10/17/2022 Benzel Modified RONEY Score 14 (A lower score indicates increased pain and issues.) PROMIS Score Percentiles Physical Health 10/17/2022 Physical Function Percentile 4 Sleep Percentile 14 Fatigue Percentile 1 Pain Interference Percentile 4 PROMIS SOCIAL ROLE SCORE 10/17/2022 Social Role Satisfaction Percentile 7 PROMIS Global Health Scale 10/17/2022 Physical Health Percentile 7 Mental Health Percentile 13 Percentiles provide an indication of how the patient's score ranks in relation to the general population. Higher percentile rankings indicate better function/quality of life. 50th percentile is the average of the general population and indicates half of respondents had a worse score. Depression Screening: PHQ-9 10/17/2022 Score 16 PHQ-9 Self-harm Question 10/17/2022 Thoughts that you would be better off , or of hurting yourself in some way 0 PHQ-9 Self-Harm (Item 9) response options: 0 Not at all 1 Several days 2 More than half the days 3 Nearly every day PHQ-9 Levels: 0-4 No to mild depression 5-9 Mild depression 10-14 Moderate depression 15-19 Moderately severe depression 20-27 Severe depression OBJECTIVE: PHYSICAL EXAM There were no vitals taken for this visit. Virtual visit Patient is sitting comfortably She is able to sit, stand and walk without assistance NEURO TESTS: None DATA REVIEW No additional images reviewed today ASSESSMENT/PLAN (M54.9, G89.29) Chronic mid back pain (M81.0) Osteoporosis, unspecified osteoporosis type, unspecified pathological fracture presence Seen virtually regarding chronic mid back pain between the scapulas. No radiation into the arms. Nonumbness. Some radiation into the legs but this is not her main concern. Hx of osteoporosis and compression fracture. No recent imaging. States she had a CT 5 years ago andit was diagnosed. At this time I have no imaging. Would need at least X-Ray. Possible kyphotic deformity post compression fracture. Will order Scoli X-ray to evaluate full spine. Discussed conservative treatment options for back pain. She states she cannot tolerate any medications. 1. Imaging: Scoliosis X-Ray 2. Follow up: Following above The majority of the visit was spent counseling and/or coordinating care for the patient. Total faceto face time was 30 minutes. SIGNATURE: Era Small PA-C PATIENT NAME: Jessica Ash DATE: October 18, 2022 TIME: 9:18 AM PAGER: [facility] NoteHNO ID: [id number] Author: Dorothy Castro APRN.ANALYTICAL LEAD Service: ? Author Type: Nurse Specialist Type: Progress Notes Filed: 08/20/2022 1:15 PM Note Text: SUBJECTIVE: COVID-19 VACCINE(1) Never done HEPATITIS C SCREENING Never done DTAP,TDAP,TD(1 - Tdap) Never done COLORECTAL CANCER SCREENING Never done SHINGRIX VACCINE(1 of 2) Never done DIABETES SCREEN due on 01/23/2010 BONE DENSITY Never done PNEUMOCOCCAL: 65+(1 - PCV) Never done LIPID SCREEN due on 01/24/2012 ANNUAL PCP TEAM CHRONIC DISEASE VISIT due on 09/15/2019 ADVANCE DIRECTIVE DISCUSSION Never done DEPRESSION ASSESSMENT Never done INFLUENZA(1) Never done HPI Jessica Ash is a 77 year old female. PMH significant for ACTIVE PROBLEM LIST Palpitations Hypothyroidism Shortness of Breath Obesity, Unspecified Unspecified sleep apnea Myalgia and Myositis, Unspecified Multiple Allergies Chronic Bilateral Thoracic Back Pain Presents today to establish care with Joe Smith MD Previous PCP: Dai Dillard MD [address] [facility] [address] [facility] [address] [address] Walker allergy doctor in [facility] does labwork. Last seen: 2 mos Labwork: 2 mos ER/Hospitalization: no, last year [facility] for Covid19 Outside records: no States she wants to transfer care because she has been going to the other provider for a long time. [facility] sees an sql bi developer in [place], [facility] allergic to all medications. Reports allergies started after formaldehyde exposure long ago. [facility] has had procedures without medication in the past due to the intolerances. ANA followed by neurology [facility] Kristi Vila, SHASHA -DRIVER RECRUITER. Seen by Dr Marie 2020 for diplopia, post concussion syndrome, vertigo, temproal arteritis, ANA. Cardiology [facility]. Reports had Covid 19 last year and symptoms persisted. [facility] does not take medication for DM, diet controlled. Hypothyroidism. She is doing well on her current dose of Synthroid. No results found for: TSH) COPD. states short of breath on exertion, not currently treating this She reports chronic mid back pain, increased over the last year present for [address] completed about 2 years ago. States she is not sure where. Notes that she goes to chiropractor and uses a TENS unit. Cannot consider staying Review of Systems Constitutional: Negative. Objective BP 110/68 Pulse (!) 49 Resp 16 Ht 162.6 cm (5' 4) Wt 88 kg (194 lb) SpO2 95% BMI 33.30 kg/m? Physical Exam Vitals and nursing note reviewed. Constitutional: Appearance: Normal appearance. HENT: Head: Normocephalic and atraumatic. Eyes: Conjunctiva/sclera: Conjunctivae normal. Neck: Thyroid: No thyromegaly. Vascular: Normal carotid pulses. No JVD. Cardiovascular: Rate and Rhythm: Normal rate and regular rhythm. Pulses: Carotid pulses are 2+ on the right side and 2+ on the left side. Radial pulses are 2+ on the right side and 2+ on the left side. Heart sounds: Normal heart sounds. Pulmonary: Effort: Pulmonary effort is normal. Breath sounds: Normal breath sounds. Abdominal: General: Bowel sounds are normal. Palpations: Abdomen is soft. Musculoskeletal: Right lower leg: No edema. Left lower leg: No edema. Skin: General: Skin is warm and dry. Neurological: General: No focal deficit present. Mental Status: She is alert and oriented to person, place, and time. ALLERGIES Allergen Reactions Alcohol All Antibiotics [Ot* All Pain Meds [Othe* Aspirin Betadine [Povidone-* Compazine [Prochlor* Anaphylaxis Ct Scan Dye [Other] Egg Unknown Latex Milk Nsaids (Non-Steroid* Anaphylaxis Soap Tylenol [Acetaminop* Vegetables [Other] Wheat Starch escitalopram oxalate (LEXAPRO) 20 mg tablet Take 20 mg by mouth once daily. omeprazole (PRILOSEC) 20 mg capsule Take 20 mg by mouth once daily. (Patient not taking: Reported on 02/13/2022 ) EPINEPHrine (EPIPEN) 0.3 mg/0.3 mL auto-injector as needed levothyroxine (LEVOXYL) 50 mcg tablet Take 3 tablets by mouth once daily. Take on empty stomach. For Thyroid. lorazepam (ATIVAN) 1 mg ORAL Tab half tablet a day PAST MEDICAL HISTORY Diagnosis Date Myalgia and myositis, unspecified 01/23/2007 Obesity, unspecified 01/23/2007 Palpitations 01/23/2007 Shortness of breath 01/23/2007 Unspecified hypothyroidism 01/23/2007 Unspecified sleep apnea 01/23/2007 Social History Tobacco Use Smoking status: Former Packs/day: 3.00 Years: 30.00 Pack years: 90.00 Types: Cigarettes Smokeless tobacco: Never Tobacco comments: quit 1994 Substance Use Topics Alcohol use: No ASSESSMENT/PLAN: 1. Routine medical exam - ICD9: V70.0, ICD10: Z00.00 (primary diagnosis) 2. IFG R73.01 diet controlled - COMP METABOLIC PANEL - CBC + DIFF - HGB A1C - LIPID PANEL BASIC 3. Chronic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 Recorded Date/T gaby father Malignant neoplasm Unknown Cardiac disease Unknown mother Congestive heart failure Unknown Diabetes mellitus Unknown Relationship Condition Age at Onset Recorded Date/T gaby father Malignant neoplasm Unknown Cardiac disease Unknown Myocardial infarction Unknown mother Congestive heart failure Unknown Diabetes mellitus Unknown Malignant neoplasm of skin Unknown son Malignant neoplasm of colon Unknown aunt Malignant neoplasm of breast Unknown brother Malignant neoplasm of pancreas Unknown grandmother Malignant neoplasm of urinary bladder Unk nown aunt Malignant neoplasm of lung Unknown Advance Directives No Advanced Directives Records Found Advance Directive Response Recorded Date/ Time Living Will No February 14, 2022 3: 08pm Power of Head Of Insight No February 14, 2022 3:08pm Advance Directive Response Recorded Date/ Time Name of Medical Power of Head Of Insight BJ ASH May 01, 2022 10:50am Living Will Yes May 01, 2022 10:50am Power of Head Of Insight Yes May 01 10:50am Advance Directive Response Recorded Date/ Time Name of Medical Power of Head Of Insight BJ ASH May 01, 2022 10:50am Living Will Yes June 16, 022 1:17pm Power of Head Of Insight Yes June 16, 2022 1:17pm Advance Directive Response Recorded Date/ Time Name of Medical Power of Head Of Insight NAEEM [place] October 31, 2022 12:22pm Living Will Yes October 31 12:22pm Power of Head Of Insight Yes October 31, 2022 12:22pm Advance Directive Response Recorded Date/ Time Living Will Yes October 31 1:22pm Power of Head Of Insight Yes October 31, 2022 1:22pm Reason for Referral Specialty Diagnoses / Procedures Referred By Contac t Referred To Contact CT IMAGING Diagnoses Carcinoma, lung, left (HCC) Procedures CT CHEST WO IVCON DIAGNOSTIC COMPUTED TOMOGRAPHY THORAX W/O CNTRST Warren Mendes, UNIX ANALYST.DRIVER RECRUITER 1 [facility] [address] [place] [address] Ct [facility] [place] [address] Referral ID Status Reason Start Date Expiration Date V isits Requested Visits Authorized [id number] Closed Auto-Generate d Referral 06/21/2023 07/20/2024 1 1 Specialty Diagnoses / Procedures Referred By Contac t Referred To Contact Pain Management Diagnoses S/P lobectomy of lung Procedures CONSULT TO PAIN MGT Warren Mendes, UNIX ANALYST.DRIVER RECRUITER 1 [facility] [address] [place] [address] Referral ID Status Reason Start Date Expiration Date Visits Requested Visits Authorized [id number] Ref Not Required PCP Requested Referral 07/24/2024 1 1 Specialty Diagnoses / Procedures Referred By Contac t Referred To Contact Diagnoses S/P lobectomy of lung Adenocarcinoma of left lung (HCC) Acute post-operative pain Warren Mendes, UNIX ANALYST.DRIVER RECRUITER 1 [facility] [address] [place] [address] Referral ID Status Reason Start Date Expiration Date Visits Re quested Visits Authorized [id number] Closed 1 1 Specialty Diagnoses / Procedures Referred By Contac t Referred To Contact Gastroenterology Diagnoses Abnormal positron emission tomography (PET) scan Procedures CONSULT TO GASTROENTEROLOGY OFFICE/OUTPATIENT [facility] 60-74 MINUTES Dae Bradshaw MD 1 [facility] [address] [place] [address] Referral ID Status Reason Start Date Expiration Date Visits Requested Visits Authorized [id number] Authorized PCP Requested Referral 06/22/2023 06/21/2024 1 1 Specialty Diagnoses / Procedures Referred By Contac t Referred To Contact Radiology Diagnoses Lung nodule Procedures PET/CT skull base to mid thigh Gabby Thomason MD [address] [place] [address] [address] [place] [address] [facility] [address] [place] [address] Referral ID Status Reason Start Date Expiration Date Visits Re quested Visits Authorized [id number] Closed 03/30/2023 09/26/2023 1 1 Specialty Diagnoses / Procedures Referred By Contac t Referred To Contact [facility] Diagnoses Chronic mid back pain Osteoporosis, unspecified osteoporosis type, unspecified pathological fracture presence Procedures CONSULT TO [facility] OFFICE/OUTPATIENT NEW HIGH MDM 60-74 MINUTES Dorothy Castro, UNIX ANALYST.ANALYTICAL LEAD [address] [place] [address] Referral ID Status Reason Start Date Expiration Date Visits Requested Visits Authorized [id number] Authorized PCP Requested Referral 2 08/20/2023 1 1 Medications Administered Section Inactive Administered Medications - up to 3 most recent administrations Medication Order MAR Action Action Date Dose Rate Site lactated ringers iv infusion 5-30 mL/hr, INTRAVENOUS, CONTINUOUS, Starting on Tue07/01/23 at 1130, Until Tue07/01/23 at 1234, Preprocedure New Bag/Syringe/Bottle 07/01/2023 11:20 AM EDT 30 mL/hr 30 mL/hr lactated ringers iv infusion 125 mL/hr, INTRAVENOUS, CONTINUOUS, Starting on Tue07/01/23 at 1300, Until Tue07/02/23 at 0423 New Bag/Syringe/Bottle 07/01/2023 12:46 PM EDT 125 mL/hr 125 mL/hr Summary Purpose Additional Source Comments Source Comments (unrecognize d section and content) In the event this informatio n is protected by the Federal Confidentiality of Alcohol and Drug Abuse Patient Records regulations: The Federal rules restrict any use of the information to criminally investigate or prosecute any alcohol or drug abuse patient.[facility] the event this information is protected by the Federal Confidentiality of Alcohol and Drug Abuse Patient Records regulations: The Federal rules restrict any use of the information to criminally investigate or prosecute any alcohol or drug abuse patient.[facility] the event this information is protected by the Federal Confidentiality of Alcohol and Drug Abuse Patient Records regulations: The Federal rules restrict any use of the information to criminally investigate or prosecute any alcohol or drug abuse patient.[facility] the event this information is protected by the Federal Confidentiality of Alcohol and Drug Abuse Patient Records regulations: The Federal rules restrict any use of the information to criminally investigate or prosecute any alcohol or drug abuse patient.[facility] the event this information is protected by the Federal Confidentiality of Alcohol and Drug Abuse Patient Records regulations: The Federal rules restrict any use of the information to criminally investigate or prosecute any alcohol or drug abuse patient.[facility] the event this information is protected by the Federal Confidentiality of Alcohol and Drug Abuse Patient Records regulations: The Federal rules restrict any use of the information to criminally investigate or prosecute any alcohol or drug abuse patient.[facility] the event this information is protected by the Federal Confidentiality of Alcohol and Drug Abuse Patient Records regulations: The Federal rules restrict any use of the information to criminally investigate or prosecute any alcohol or drug abuse patient.[facility] the event this information is protected by the Federal Confidentiality of Alcohol and Drug Abuse Patient Records regulations: The Federal rules restrict any use of the information to criminally investigate or prosecute any alcohol or drug abuse patient.[facility] the event this information is protected by the Federal Confidentiality of Alcohol and Drug Abuse Patient Records regulations: The Federal rules restrict any use of the information to criminally investigate or prosecute any alcohol or drug abuse patient.[facility] the event this information is protected by the Federal Confidentiality of Alcohol and Drug Abuse Patient Records regulations: The Federal rules restrict any use of the information to criminally investigate or prosecute any alcohol or drug abuse patient.[facility] Hospital[facility] the event this information is protected by the Federal Confidentiality of Alcohol and Drug Abuse Patient Records regulations: The Federal rules restrict any use of the information to criminally investigate or prosecute any alcohol or drug abuse patient.[facility] the event this information is protected by the Federal Confidentiality of Alcohol and Drug Abuse Patient Records regulations: The Federal rules restrict any use of the information to criminally investigate or prosecute any alcohol or drug abuse patient.[facility] the event this information is protected by the Federal Confidentiality of Alcohol and Drug Abuse Patient Records regulations: The Federal rules restrict any use of the information to criminally investigate or prosecute any alcohol or drug abuse patient.[facility] HospitalIn the event this information is protected by the Federal Confidentiality of Alcohol and Drug Abuse Patient Records regulations: The Federal rules restrict any use of the information to criminally investigate or prosecute any alcohol or drug abuse patient.[facility] Hospital[facility] the event this information is protected by the Federal Confidentiality of Alcohol and Drug Abuse Patient Records regulations: The Federal rules restrict any use of the information to criminally investigate or prosecute any alcohol or drug abuse patient.[facility] HospitalIn the event this information is protected by the Federal Confidentiality of Alcohol and Drug Abuse Patient Records regulations: The Federal rules restrict any use of the information to criminally investigate or prosecute any alcohol or drug abuse patient.[facility] Hospital[facility] the event this information is protected by the Federal Confidentiality of Alcohol and Drug Abuse Patient Records regulations: The Federal rules restrict any use of the information to criminally investigate or prosecute any alcohol or drug abuse patient.[facility] HospitalIn the event this information is protected by the Federal Confidentiality of Alcohol and Drug Abuse Patient Records regulations: The Federal rules restrict any use of the information to criminally investigate or prosecute any alcohol or drug abuse patient.[facility] HospitalIn the event this information is protected by the Federal Confidentiality of Alcohol and Drug Abuse Patient Records regulations: The Federal rules restrict any use of the information to criminally investigate or prosecute any alcohol or drug abuse patient.[facility] HospitalIn the event this information is protected by the Federal Confidentiality of Alcohol and Drug Abuse Patient Records regulations: The Federal rules restrict any use of the information to criminally investigate or prosecute any alcohol or drug abuse patient.[facility] HospitalIn the event this information is protected by the Federal Confidentiality of Alcohol and Drug Abuse Patient Records regulations: The Federal rules restrict any use of the information to criminally investigate or prosecute any alcohol or drug abuse patient.[facility] HospitalIn the event this information is protected by the Federal Confidentiality of Alcohol and Drug Abuse Patient Records regulations: The Federal rules restrict any use of the information to criminally investigate or prosecute any alcohol or drug abuse patient.[facility] HospitalIn the event this information is protected by the Federal Confidentiality of Alcohol and Drug Abuse Patient Records regulations: The Federal rules restrict any use of the information to criminally investigate or prosecute any alcohol or drug abuse patient.[facility]In the event this information is protected by the Federal Confidentiality of Alcohol and Drug Abuse Patient Records regulations: The Federal rules restrict any use of the information to criminally investigate or prosecute any alcohol or drug abuse patient.[facility] HospitalIn the event this information is protected by the Federal Confidentiality of Alcohol and Drug Abuse Patient Records regulations: The Federal rules restrict any use of the information to criminally investigate or prosecute any alcohol or drug abuse patient.[facility] HospitalIn the event this information is protected by the Federal Confidentiality of Alcohol and Drug Abuse Patient Records regulations: The Federal rules restrict any use of the information to criminally investigate or prosecute any alcohol or drug abuse patient.[facility] HospitalIn the event this information is protected by the Federal Confidentiality of Alcohol and Drug Abuse Patient Records regulations: The Federal rules restrict any use of the information to criminally investigate or prosecute any alcohol or drug abuse patient.[facility] HospitalIn the event this information is protected by the Federal Confidentiality of Alcohol and Drug Abuse Patient Records regulations: The Federal rules restrict any use of the information to criminally investigate or prosecute any alcohol or drug abuse patient.[facility] the event this information is protected by the Federal Confidentiality of Alcohol and Drug Abuse Patient Records regulations: The Federal rules restrict any use of the information to criminally investigate or prosecute any alcohol or drug abuse patient.[facility] HospitalIn the event this information is protected by the Federal Confidentiality of Alcohol and Drug Abuse Patient Records regulations: The Federal rules restrict any use of the information to criminally investigate or prosecute any alcohol or drug abuse patient.[facility] HospitalIn the event this information is protected by the Federal Confidentiality of Alcohol and Drug Abuse Patient Records regulations: The Federal rules restrict any use of the information to criminally investigate or prosecute any alcohol or drug abuse patient.[facility] HospitalIn the event this information is protected by the Federal Confidentiality of Alcohol and Drug Abuse Patient Records regulations: The Federal rules restrict any use of the information to criminally investigate or prosecute any alcohol or drug abuse patient.[facility] HospitalIn the event this information is protected by the Federal Confidentiality of Alcohol and Drug Abuse Patient Records regulations: The Federal rules restrict any use of the information to criminally investigate or prosecute any alcohol or drug abuse patient.[facility] HospitalIn the event this information is protected by the Federal Confidentiality of Alcohol and Drug Abuse Patient Records regulations: The Federal rules restrict any use of the information to criminally investigate or prosecute any alcohol or drug abuse patient.[facility] HospitalIn the event this information is protected by the Federal Confidentiality of Alcohol and Drug Abuse Patient Records regulations: The Federal rules restrict any use of the information to criminally investigate or prosecute any alcohol or drug abuse patient.[facility] HospitalIn the event this information is protected by the Federal Confidentiality of Alcohol and Drug Abuse Patient Records regulations: The Federal rules restrict any use of the information to criminally investigate or prosecute any alcohol or drug abuse patient.[facility] HospitalIn the event this information is protected by the Federal Confidentiality of Alcohol and Drug Abuse Patient Records regulations: The Federal rules restrict any use of the information to criminally investigate or prosecute any alcohol or drug abuse patient.[facility] Reason for Visit (unrecogniz ed section and content) Reason Comments Cough diarrhea, MITCHELL, ST x5 days Reason Comments Establish Care Reason Comments New Patient Specialty Diagnoses / Procedures Referred By Contac t Referred To Contact [facility] Diagnoses Chronic mid back pain Osteoporosis, unspecified osteoporosis type, unspecified pathological fracture presence Procedures CONSULT TO [facility] OFFICE/OUTPATIENT [facility] 60-74 MINUTES Dorothy Castro, SHASHA.ANALYTICAL LEAD [address] [place] [address] Referral ID Status Reason Start Date Expiration Date V isits Requested Visits Authorized [id number] Closed PCP Requested Referral 08/20/2022 08/20/2023 1 1 Reason Comments Nurse Navigation Reason Comments New Patient Reason Comments Lung Nodule Reason Comments Lung Cancer Specialty Diagnoses / Procedures Referred By Contac t Referred To Contact Pulmonology Diagnoses Lung nodule Procedures MT OFFICE/OUTPATIENT [facility] 60-74 MINUTES Gabby Thomason MD [address] [place] [address] [facility] [address] [place] [address] Referral ID Status Reason Start Date Expiration Date Visits Requested Visits Authorized [id number] Pending Review Specialty Services Required 03/30/2023 03/29/2024 1 1 Reason Onset Date Comments Care Coordination 04/04/2023 Specialty Diagnoses / Procedures Referred By Contac t Referred To Contact Radiology Diagnoses Lung nodule Procedures PET/CT skull base to mid thigh Gabby Thomason MD [address] [place] [address] [facility] Dario Pet [address] [place] [address] Referral ID Status Reason Start Date Expiration Date Visits Re quested Visits Authorized [id number] Closed 03/30/2023 09/26/2023 1 1 Reason Comments Breathing Problem Specialty Diagnoses / Procedures Referred By Contac t Referred To Contact Diagnoses Non-small cell lung cancer, unspecified laterality (HCC) Non-small cell lung cancer, unspecified laterality (HCC) [C34.90] Procedures MT BRNSCHSC TNDSC EBUS DX/TX INTERVENTION PERPH LES EBUS WITH José Miguel Vargas MD [address] [place] [address] [facility] End[address] [place] [address] Referral ID Status Reason Start Date Expiration Date Visits Re quested Visits Authorized [id number] 1 1 Reason Comments Patient Question Reason Comments Question Surgery Reason Comments Patient Update Reason Comments Received Outside Medical Records Reason Onset Date Comments Allergies 06/21/2023 Anesthesia Consu lt requested by Dr. Riley regarding anesthesia plan in setting of multiple relevant medication allergies Reason Comments Future Appointment Reason Comments Request for return call Reason Comments Requests return call Reason Comments Opened In Error Reason Comments Patient Question Question on CT scan and Nuclear Stress Test Reason Comments Lung surgery Jessica Aquino is here for PAT Reason Onset Date Comments Patient Question 07/11/2023 When to change bandages and Home Care requested Reason Comments Appointment Offer Sooner Reason Comments New Patient Reason Comments Referral Information Reason Comments Established Patient Follow Up 2-week follow-up - l judie resection Reason Comments Radiology CT Specialty Diagnoses / Procedures [facility] Diagnoses Carcinoma, lung, left (HCC) Procedures CT CHEST WO IVCON DIAGNOSTIC COMPUTED TOMOGRAPHY THORAX W/O CNTRST Warren Mendes, UNIX ANALYST.DRIVER RECRUITER [address] [place] [address] [place] [address] Referral ID Status Reason Start Date Expiration Date V isits Requested Visits Authorized [id number] Closed Auto-Generate d Referral 06/21/2023 07/20/2024 1 1 Reason Comments Radiology US Specialty Diagnoses / Procedures Referred By Zamzam t Referred To Contact US IMAGING Diagnoses RUQ pain Procedures US ABD RIGHT UPPER QUADRANT US ABDOMINAL REAL TIME W/IMAGE LIMITED Dae Bradshaw MD 1 [facility] [address] [place] [address] [place] [address] Referral ID Status Reason Start Date Expiration Date V isits Requested Visits Authorized [id number] Closed Auto-Generate d Referral 06/27/2023 07/26/2024 1 1 Reason Onset Date Comments Care Coordination 03/30/2023 PET Scheduling Reason Comments Results Reason Onset Date Comments Advice Only 10/27/2022 Reason Onset Date Comments Chart notes request 11/25/2022 Sleep study Reason Onset Date Comments Sleep Study 12/03/2022 Care Teams (unrecognized sec tion and content) Mortar Man Relationship Specialty Start Date End Date Dai Dillard [address] [address] PCP - General 01/20/07 Mortar Man Relationship Specialty Start Date End Date Dai Dillard [address] [address] PCP - General 01/20/07 Mortar Man Relationship Specialty Start Date End Date Joe Smith MD [address] [place] [address] PCP - General Internal Medicine 08/20/22 Mortar Man Relationship Specialty Start Date End Date Joe Smith MD [address] [place], [place] [address] PCP - General Internal Medicine 08/20/22 Team Status: Active Member Role Status Dates Dr. Corinne Panda , DO Family Provider Active Dr. Corinne Panda , DO Primary Care Provider Activ e Team Status: Inactive Member Role Status Dates Dr. Corinne Panda , DO Primary Care Provider, Refe rring Provider Active Dr. Alfonso Murphy , DO Attending Provider Active Team Status: Inactive Member Role Status Dates Dr. Corinne Panda , DO Primary Care Provider Activ e Dr. Jennifer Love MD Attending Provider, Referrin g Provider Active Team Status: Inactive Member Role Status Dates Dr. Corinne Panda , DO Primary Care Provider Activ e Dr. Petre Mcbride DO Emergency Provider Active Mortar Man Relationship Specialty Start Date End Date Corinne Panda DO [address] [place] [address] PCP - General 04/08/21 Blanca Alva, RN Registered Nurse Oncology 03/30/23 Mortar Man Relationship Specialty Start Date End Date Corinne Panda DO [address] [place] [address] PCP - General 04/08/21 Blanca Alva, RN Registered Nurse Oncology 03/30/23 Mortar Man Relationship Specialty Start Date End Date Corinne Panda DO [address] [place] [address] PCP - General 04/08/21 Blanca Alva, RN Registered Nurse Oncology 03/30/23 Mortar Man Relationship Specialty Start Date End Date Corinne Panda DO [address] [place] [address] (Work) PCP - General 04/08/21 Blanca Alva, ZEN Registered Nurse Oncology 03/30/23 Mortar Man Relationship Specialty Start Date End Date Corinne Panda DO [address] [place] [address] PCP - General 04/08/21 Blanca Alva, RN Registered Nurse Oncology 03/30/23 Mortar Man Relationship Specialty Start Date End Date Corinne Panda DO [address] [place] [address] PCP - General 04/08/21 Blanca Alva, RN Registered Nurse Oncology 03/30/23 Mortar Man Relationship Specialty Start Date End Date Corinne Panda DO [address] [place] [address] PCP - General 04/08/21 Blanca Alva, RN Registered Nurse Oncology 03/30/23 Team Status: Inactive Member Role Status Dates Dr. Corinne Panda , DO Primary Care Provider, Refe rring Provider Active Dr. Linus Estrada , DO Attending Provider Active Team Status: Inactive Member Role Status Dates Dr. Corinne Panda , DO Primary Care Provider, Refe rring Provider Active Katelynn Michaels COTTON EXPERT, COTTON EXPERT-C Attending Provider Active Team Status: Inactive Member Role Status Dates Dr. Corinne Panda , DO Primary Care Provider, Refe rring Provider Active Dr. Emil Whittington MD Attending Provider Active Team Status: Inactive Member Role Status Dates Dr. Corinne Panda , DO Primary Care Provider Activ e Dr. Linus Estrada , DO Attending Provider, Referring Pro vider Active Team Status: Active Member Role Status Dates Dr. Corinne Panda , DO Primary Care Provider Activ e Dr. Linus Estrada , DO Attending Provider, Referring Pro vider Active Team Status: Active Member Role Status Dates Dr. Corinne Panda , DO Primary Care Provider Activ e Dr. Emil Whittington MD Attending Provider, Referrin g Provider Active Team Status: Inactive Member Role Status Dates Dr. Corinne Panda , DO Primary Care Provider Activ e Dr. Emil Whittington MD Attending Provider, Referrin g Provider Active Mortar Man Relationship Specialty Start Date End Date Corinne Panda DO [address] [place] [address] PCP - General 04/08/21 Blanca Alva, RN Registered Nurse Oncology 03/30/23 Mortar Man Relationship Specialty Start Date End Date Corinne Panda DO [address] [place] [address] PCP - General 04/08/21 Blanca Alva, RN Registered Nurse Oncology 03/30/23 Mortar Man Relationship Specialty Start Date End Date Corinne Panda DO [address] [place] [address] PCP - General 04/08/21 Blanca Alva, RN Registered Nurse Oncology 03/30/23 Mortar Man Relationship Specialty Start Date End Date Corinne Panda DO [address] [place] [address] PCP - General 04/08/21 Blanca Alva, RN Registered Nurse Oncology 03/30/23 Mortar Man Relationship Specialty Start Date End Date Corinne Panda DO [address] [place] [address] PCP - General 04/08/21 Blanca Alva, RN Registered Nurse Oncology 03/30/23 Mortar Man Relationship Specialty Start Date End Date Corinne Panda DO [address] [place] [address] PCP - General Family Medicine 01/23/23 Mortar Man Relationship Specialty Start Date End Date Corinne Panda DO [address] [place] [address] PCP - General Family Medicine 01/23/23 Mortar Man Relationship Specialty Start Date End Date Corinne Panda DO [address] [place] [address] PCP - General Family Medicine 01/23/23 Mortar Man Relationship Specialty Start Date End Date Corinne Panda DO [address] [place] [address] PCP - General Family Medicine 01/23/23 Mortar Man Relationship Specialty Start Date End Date Corinne Panda DO [address] [place] [address] PCP - General Family Medicine 01/23/23 Mortar Man Relationship Specialty Start Date End Date Corinne Panda DO [address] [place] [address] PCP - General Family Medicine 01/23/23 Mortar Man Relationship Specialty Start Date End Date Corinne Panda DO [address] [place] [address] PCP - General Family Medicine 01/23/23 Mortar Man Relationship Specialty Start Date End Date Corinne Panda DO [address] [place] [address] PCP - General Family Medicine 01/23/23 Mortar Man Relationship Specialty Start Date End Date Corinne Panda DO [address] [place] [address] PCP - General Family Medicine 01/23/23 Mortar Man Relationship Specialty Start Date End Date Corinne Panda DO [address] [place] [address] PCP - General Family Medicine 01/23/23 Mortar Man Relationship Specialty Start Date End Date Corinne Panda DO [address] [place] [address] PCP - General Family Medicine 01/23/23 Mortar Man Relationship Specialty Start Date End Date Corinne Panda DO [address] [place] [address] PCP - General Family Medicine 01/23/23 Mortar Man Relationship Specialty Start Date End Date Corinne Panda DO [address] [place] [address] PCP - General Family Medicine 01/23/23 Marylu Greenfield, DRIVER RECRUITER [address] [place] [address] Family Medicine 07/01/23 Mortar Man Relationship Specialty Start Date End Date Corinne Panda DO [address] [place] [address] PCP - General Family Medicine 01/23/23 Marylu Greenfield, DRIVER RECRUITER [address] [place] [address] Family Medicine 07/01/23 Mortar Man Relationship Specialty Start Date End Date Corinne Panda DO [address] [place] [address] PCP - General Family Medicine 01/23/23 Marylu Greenfield, DRIVER RECRUITER [address] [place] [address] Family Medicine 07/01/23 Mortar Man Relationship Specialty Start Date End Date Corinne Panda DO [address] [place] [address] PCP - General Family Medicine 01/23/23 Marylu Greenfield, TONIA [address] [place] [address] Family Medicine 07/01/23 Mortar Man Relationship Specialty Start Date End Date Corinne Panda DO [address] [place] [address] PCP - General Family Medicine 01/23/23 Marylu Greenfield, DRIVER RECRUITER [address] [place] [address] Family Medicine 07/01/23 Mortar Man Relationship Specialty Start Date End Date Corinne Panda DO [address] [place] [address] PCP - General Family Medicine 01/23/23 Marylu Greenfield, TONIA [address] [place] [address] Family Medicine 07/01/23 Mortar Man Relationship Specialty Start Date End Date Corinne Panda DO [address] [place] [address] PCP - General Family Medicine 01/23/23 Marylu Greenfield, TONIA [address] [place] [address] Family Medicine 07/01/23 Mortar Man Relationship Specialty Start Date End Date Corinne Panda DO [address] [place] [address] PCP - General Family Medicine 01/23/23 Mortar Man Relationship Specialty Start Date End Date Corinne Panda DO [address] [place] [address] PCP - General Family Medicine 01/23/23 Marylu Greenfield, DRIVER RECRUITER [address] [place] [address] Family Medicine 07/01/23 Mortar Man Relationship Specialty Start Date End Date Corinne Panda DO [address] [place] [address] PCP - General Family Medicine 01/23/23 Mortar Man Relationship Specialty Start Date End Date Corinne Panda DO [address] [place] [address] PCP - General Family Medicine 01/23/23 Marylu Greenfield, TONIA [address] [place] [address] Family Medicine 07/01/23 Mortar Man Relationship Specialty Start Date End Date Corinne Panda DO [address] [place] [address] PCP - General 04/08/21 Blanca Alva, RN Registered Nurse Oncology 03/30/23 Mortar Man Relationship Specialty Start Date End Date Corinne Panda DO [address] [place] [address] PCP - General 04/08/21 Mortar Man Relationship Specialty Start Date End Date Corinne Panda DO [address] [place] [address] PCP - General 04/08/21 Mortar Man Relationship Specialty Start Date End Date Corinne Panda DO [address] [place] [address] PCP - General 04/08/21 Mortar Man Relationship Specialty Start Date End Date Corinne Panda DO [address] [place] [address] PCP - General 04/08/21 Goals (unrecognized section and content) Goals may be documented in a n alternate section Care Team (unrecognized sect ion and content) Care Team Personnel Name: Cheo Corbettrlaura Capone PT Position: P3 Scheduling - Injection Molding Machine Setter Advanced Member Role: Other Name: CORINNE PANAD DO Position: P4 Physician - Primary Care Member Role: Primary Care Physician Address: Address: [address] [place] [address]- Care Team Related Persons Name: NAEEM ASH Address: Home [address] [place] [phone] Care Team Personnel Name: Cheo Corbett PT Position: P3 Scheduling - Injection Molding Machine Setter Advanced Member Role: Other Name: CORINNE PANDA DO Position: P4 Physician - Primary Care Member Role: Primary Care Physician Address: Address: [address] [place] [address] Care Team Related Persons Name: NAEEM ASH Address: Home [address] [place], [place] [phone] Care Team Personnel Name: Cheo Corbett PT Position: P3 Scheduling - Injection Molding Machine Setter Advanced Member Role: Other Name: CORINNE PANDA DO Position: P4 Physician - Primary Care Member Role: Primary Care Physician Address: Address: [address] [place] [address] Care Team Related Persons Name: NAEEM ASH Address: Home [address] [place] [phone] [place] Scheduled Active and Recently Administ ered Medications (unrecognized section and content) Medication Order 04/26/2023 04/27/2023 04/28/2023 LORazepam (Ativan) injection 0.5 mg (COMPLETED) 0.5 mg, IntraVENous, Once, On Aylin 04/28/23 at 1600, For 1 dose, Recovery (only), For IV doses dilute dose with 1ml NS. 1557 (Given - Provid er: Oleg Fraser, RN) LORazepam (Ativan) injection 0.5 mg (COMPLETED) 0.5 mg, IntraVENous, Once, On Aylin 04/28/23 at 1645, For 1 dose, Recovery (only), For IV doses dilute dose with 1ml NS. 1650 (Given - Provid er: Letha Ceja RN) sodium chloride 0.9% (NS) flush 10 mL 10 mL, IntraVENous, Every 12 hours scheduled (2 times per day), First dose on Aylin 04/28/23 at 2100, Preprocedure PRN Medication Order 04/26/2023 04/27/2023 04/28/2023 sodium chloride 0.9 % infusion 5-250 mL/hr, IntraVENous, PRN, if patient receiving piggyback infusions and maintenance fluids are not ordered OR KVO fluids to protect IV site / prevent frequent line interruptions/ long duration, Starting on Aylin 04/28/23 at 1406, Preprocedure, For piggyback infusion, administer at same rate as piggyback for a total of 25 mL. Enter 25 mL into dose field and piggyback rate into rate field of order. If piggyback is infusing at a rate less than 100 mL/hr, enter 25 mL into dose field and 100 mL/hr into rate field of order. For KVO fluids, enter rate of 20 mL/hr or less into rate field of order. 1415 (New Bag - Prov ider: Shade Ward CRNA)1501 (Stopped - Provider: Shade Ward CRNA) sodium chloride 0.9 % infusion 5-250 mL/hr, IntraVENous, PRN, if patient receiving piggyback infusions and maintenance fluids are not ordered OR KVO fluids to protect IV site / prevent frequent line interruptions/ long duration, Starting on Aylin 04/28/23 at 1406, Preprocedure, For piggyback infusion, administer at same rate as piggyback for a total of 25 mL. Enter 25 mL into dose field and piggyback rate into rate field of order. If piggyback is infusing at a rate less than 100 mL/hr, enter 25 mL into dose field and 100 mL/hr into rate field of order. For KVO fluids, enter rate of 20 mL/hr or less into rate field of order. sodium chloride 0.9% (NS) flush 10 mL 10 mL, IntraVENous, PRN, line care, Starting on Aylin 04/28/23 at 1406, Preprocedure, After every IV line use INFORMATION SOURCE (unrecogn ized section and content) DATE CREATED AUTHOR 07/21/2023 [facility] DATE CREATED AUTHOR AUTHOR'S ORGANIZ ATION 08/06/2023 [facility] DATE CREATED AUTHOR AUTHOR'S ORGANIZ ATION 04/27/2024 [facility] DATE CREATED AUTHOR AUTHOR'S ORGANIZ ATION 05/03/2024 [facility] DATE CREATED AUTHOR AUTHOR'S ORGANIZ ATION 05/21/2025 [facility] FOR RECORDS PERTAINING TO PATIENTS WHO ARE OR HAVE BEEN ENROLLED IN A CHEMICAL DEPENDENCY/SUBSTANCEABUSE PROGRAM, SOME INFORMATION MAY BE OMITTED. This clinical summary was aggregated from multiple sources. Caution should be exercised in using it in the provision of clinical care. This summary normalizes information from multiple sources, and as a consequence, information in this document may materially change the coding, format and clinical context of patient data. In addition, data may be omitted in some cases. CLINICAL DECISIONS SHOULD BE BASED ON THE PRIMARY CLINICAL RECORDS. [employer] [facility]. provides no warranty or guarantee of the accuracy or completeness of information in this document.
== END | disposition home or self-care (01) ==
LOC: CT 13:20
PROVIDERS: Referring Provider Internal Medicine Hematology & Oncology; Visit Provider Internal Medicine Hematology & Oncology
DX: C34.92 Malignant neoplasm of unspecified part of left bronchus or lung (principal)
CPT/HCPCS: 71250; 74150

== ENCOUNTER → 2025-05-30 | Outpatient (CLI) | payer MEDICARE, OTHER, SELFPAY ==
[2025-05-30 12:57] LABS: Hematocrit 41.6 % (37-47); Hemoglobin 13.7 g/dL (12.0-15.0); Immature Granulocytes Count 0.030 X10^3/uL (0.0-0.0); Mean Corp Hgb Conc 32.9 g/dL (32-36); Mean Corpuscular Volume 91.0 fL (81-99); Mean Platelet Vol. 11.4 fl (6.2-12.0); NRBC Flagged by Analyzer 0 % (0-5); Platelet Count 166 K/mm3 (150-450); RBC Distribution Width CV 14.3 % (11.6-14.6); RBC Distribution Width SD 47.8 fl (35.1-43.9); Red Blood Count 4.57 M/mm3 (4.2-5.4); White Blood Count 5.1 K/mm3 (4.4-11.0)
[2025-05-30 13:25] LABS: AST(SGOT) 24 U/L (<=31); Alanine Aminotransfer ALT/SGPT 29 U/L (<=34); Albumin, Serum 3.9 g/dL (3.4-4.8); Alkaline Phosphatase 83 U/L (35-104); Anion Gap 9 (5-15); BUN 29 mg/dL (4-19); BUN/Creat Ratio 33.5 RATIO (10-20); Calcium,Total 9.1 mg/dL (7.6-11.0); Carbon Dioxide 26.7 mmol/L (21.0-32.0); Chloride 105 mmol/L (98-108); Globulin 2.6 g/dL (2.2-4.2); Glucose 133 mg/dL (70-99); Potassium 4.2 mmol/L (3.3-5.1)
== END | disposition home or self-care (01) ==
LOC: LAB 12:02
PROVIDERS: Referring Provider Internal Medicine Hematology & Oncology; Visit Provider Internal Medicine Hematology & Oncology
DX: C34.92 Malignant neoplasm of unspecified part of left bronchus or lung (principal)
CPT/HCPCS: 36415; 80053; 85025